=== PATIENT | male | born 1945 | race Caucasian/White ===

== ENCOUNTER → 2017-08-26 16:01 | Outpatient (CLI) | payer MEDICARE, OTHER, SELFPAY ==
--- NOTE | 2017-08-26 | LES_PTH ---
PATIENT: ADA JUNE LOC: [facility] U#:[id number] AGE/SX: 79/M ROOM: RE08/26/[address]: Dr. Hari Sarmiento MD : 1945 BED: DIS: SPEC #: [id number] RECD: 08/26/17 15:59 STATUS: EDWARD RAVI #: [id number] KIMBERLY: 08/26/17 00:[address]: Hari Sarmiento DEPT: SURGICAL PATHOLOGY RECD BY: Reece Santillan ENTERED: 08/27/17 11:45 SP TYPE: Lesion OTHR DR: Dr. Kvng Moody MD Tissues: Skin of arm Procedures: Surgery Specimen Level IV HEADER OPERATION: Excision right arm lesion PRE-OP DIAGNOSIS: Right arm uncertain neoplasm TISSUE SUBMITTED: Right arm tissue MICROSCOPIC DIAGNOSIS Right arm lesion, excisional biopsy: Seborrheic keratosis with keratoacanthomatous features, completely excised. Actinic keratosis and solar elastosis. SJ:lori 08/29/17 COMMENT Case has been reviewed in consultation with Dr. Elder who concurs with the above diagnosis. IDC:AM MICROSCOPIC DESCRIPTION Slides are reviewed. GROSS DESCRIPTION Received in fixative is one container labeled with the patient's name and designated right arm. The specimen consists of a piece of harris-white skin ellipse measuring 3 x 1.5 cm and up to 0.7 cm in depth. There is a raised harris lesion on the surface measuring 1.5 x 0.7 cm. The specimen is inked, serially sectioned and submitted entirely in 3 cassettes. Cassette 1 contained the tips of the skin ellipse. Section will be submitted after overnight fixation. MARIAH:lori 08/27/17 TC:1 CPT:94469
== END ==
PROVIDERS: Family Provider Family Medicine; PCP Family Medicine; Visit Provider Surgery
DX: D48.7 Neoplasm of uncertain behavior of other specified sites (principal)
CPT/HCPCS: 88305

== ENCOUNTER → 2017-11-25 14:46 | Outpatient (CLI) | payer MEDICARE, OTHER, SELFPAY ==
[2017-11-25 18:09] LABS: Anion Gap 5 (5-15); BUN 9 mg/dL (7-18); BUN/Creat Ratio 8.3 RATIO (10-20); Calcium,Total 8.8 mg/dL (8.5-10.1); Chloride 102 mmol/L (98-107); Creatinine, Serum 1.09 mg/dL (0.70-1.30); EST Glomerular Filtration Rate 70 mL/min (>60); Est Glom Filt Rate - Afr Amer 85 mL/min (>60); Glucose 134 mg/dL (74-106); PSA,Total - Annual Screen 0.37 ng/mL (0.00-4.00); Sodium Level 136 mmol/L (136-145)
== END ==
PROVIDERS: Family Provider Family Medicine; PCP Family Medicine; Referring Provider Urology; Visit Provider Urology
DX: Z12.5 Encounter for screening for malignant neoplasm of prostate (principal); N13.30 Unspecified hydronephrosis
CPT/HCPCS: 36415; 80048; 84153; G0103

== ENCOUNTER → 2018-11-30 14:34 | Outpatient (CLI) | payer MEDICARE, OTHER, SELFPAY ==
[2018-11-30 16:20] LABS: Anion Gap 7 (5-15); BUN 19 mg/dL (7-18); BUN/Creat Ratio 17.9 RATIO (10-20); Calcium,Total 8.9 mg/dL (8.5-10.1); Chloride 104 mmol/L (98-107); Creatinine, Serum 1.06 mg/dL (0.70-1.30); EST Glomerular Filtration Rate 72 mL/min (>60); Est Glom Filt Rate - Afr Amer 88 mL/min (>60); Glucose 356 mg/dL (74-106); PSA,Total - Annual Screen 0.42 ng/mL (0.00-4.00); Potassium 4.1 mmol/L (3.5-5.1); Sodium Level 135 mmol/L (136-145)
== END ==
PROVIDERS: Family Provider Family Medicine; PCP Family Medicine; Referring Provider Urology; Visit Provider Urology
DX: Z12.5 Encounter for screening for malignant neoplasm of prostate (principal)
CPT/HCPCS: 36415; 80048; 84153; G0103

== ENCOUNTER → 2019-03-16 15:55 | Outpatient (CLI) | payer MEDICARE, SELFPAY ==
[2019-03-16 17:52] LABS: Absolute Lymphocyte Count 3.27 X10^3/uL (0.83-4.51); Absolute Neutrophil Count 4.7 X10^3/uL (2.0-7.7); Basophil# 0.06 X10^3/uL; Basophil% 0.7 % (0-1); Eosinophil# 0.19 X10^3/uL; Eosinophils% 2.1 % (0-5); Hematocrit 43.8 % (40-54); Hemoglobin 13.5 g/dL (13.0-16.5); Lymphocyte # 3.27 X10^3/ul (4.0); Lymphocyte % 36.8 % (19-41); Mean Corp Hgb Conc 30.8 g/dL (32-36); Mean Corpuscular Hgb 26.1 pg (27.0-32.0); Mean Corpuscular Volume 84.7 fL (80-94); Mean Platelet Vol. 11.1 fl (6.2-12.0); Monocyte# 0.68 X10^3/uL; Monocyte% 7.7 % (0-10); NRBC Flagged by Analyzer 0 % (0-5); Neutrophil # 4.65 X10^3/uL (2.7-7.7); Neutrophil % 52.4 % (47-70); Platelet Count 294 K/mm3 (150-450); RBC Distribution Width CV 14.1 % (11.6-14.6); RBC Distribution Width SD 43.2 fl (35.1-43.9); Red Blood Count 5.17 M/mm3 (4.6-6.2); White Blood Count 8.9 K/mm3 (4.4-11.0)
[2019-03-16 18:52] LABS: Anion Gap 4 (5-15); BUN 13 mg/dL (7-18); BUN/Creat Ratio 12.4 RATIO (10-20); Calcium,Total 8.9 mg/dL (8.5-10.1); Chloride 108 mmol/L (98-107); Creatinine, Serum 1.05 mg/dL (0.70-1.30); EST Glomerular Filtration Rate 73 mL/min (>60); Est Glom Filt Rate - Afr Amer 88 mL/min (>60); Glucose 86 mg/dL (74-106); Magnesium 2.3 mg/dL (1.6-2.6); Potassium 4.3 mmol/L (3.5-5.1); Sodium Level 139 mmol/L (136-145); Thyroid Stim Hormone (TSH) 2.26 uIU/mL (0.358-3.74)
== END ==
PROVIDERS: Family Provider Family Medicine; PCP Family Medicine; Visit Provider Family Medicine
DX: E11.9 Type 2 diabetes mellitus without complications (principal); R00.2 Palpitations
CPT/HCPCS: 36415; 80048; 83735; 84443; 85025

== ENCOUNTER → 2019-04-13 08:54 | Outpatient (CLI) | payer MEDICARE, SELFPAY ==
[2019-04-06 13:43] VITALS: BMI 29.3
--- NOTE | 2019-04-13 08:55 | CDU_ITS ---
Reason For Study: Carotid artery disease Rt. Velocities/BP Lt. Velocities/BP Prox CCA 85.2/10.8 cm/sec. Prox CCA 59.8/14.4 cm/sec. Mid CCA 81.2/9.5 cm/sec. Mid CCA 53.2/15.4 cm/sec. Dist CCA 78.6 cm/sec. Dist CCA 53.2/16.3 cm/sec. Prox ICA 39/9.7 cm/sec. Prox ICA 61.9/16.8 cm/sec. Mid ICA 68.3/15.4 cm/sec. Mid ICA 71.7/17.9 cm/sec. Dist ICA 74/23.9 cm/sec. Dist ICA 82.8/22.3 cm/sec. Rt. ICA/CCA = 0.9. Lt. ICA/CCA = 1.6. Prox ECA 182.8/18.2 cm/sec. Prox ECA 323.9/30.8 cm/sec. Rt. Vert. 47.5/12.6 cm/sec. Lt. Vert. 35.2/9 cm/sec. Right Extracranial There is homogeneous, smooth atherosclerotic plaque noted in the right common carotid artery. There is homogeneous, smooth atherosclerotic plaque noted in the right internal carotid artery. There is homogeneous, smooth atherosclerotic plaque noted in the right external carotid artery. Antegrade flow is noted in the right vertebral artery. Left Extracranial There is homogeneous, smooth atherosclerotic plaque noted in the left common carotid artery. There is heterogeneous, irregular atherosclerotic plaque noted in the left internal carotid artery. There is heterogeneous, irregular atherosclerotic plaque noted in the left external carotid artery. Antegrade flow is noted in the left vertebral artery. Procedure Carotid Duplex [id number]. Exam performed in department. Interpretation Summary Minimal smooth plaque located within the proximal right internal carotid artery <50% stenosis right internal carotid <50% stenosis right external carotid Minimal irregular plague at the proximal left internal carotid <50% stenosis left internal carotid >50% stenosis left external carotid Patent, antegrade vertebrals bilaterally Evidence consistent with previous bilateral carotid endarterectomies Ordering Physician: Margarito Chan Referring Physician: Kvng Moody Performed By: Yamel Sifuentes RVT
== END ==
PROVIDERS: PCP Family Medicine; Referring Provider Internal Medicine Cardiovascular Disease; Visit Provider Internal Medicine Cardiovascular Disease
DX: R09.89 Other specified symptoms and signs involving the circulatory and respiratory systems (principal); I77.9 Disorder of arteries and arterioles, unspecified; I48.91 Unspecified atrial fibrillation; Z98.890 Other specified postprocedural states
CPT/HCPCS: 93880

== ENCOUNTER → 2019-04-26 08:47 | Outpatient (CLI) | payer MEDICARE, SELFPAY ==
[2019-04-06 13:43] VITALS: BMI 29.3
--- NOTE | 2019-04-26 08:47 | ECHOD_ITS ---
Reason For Study: ATRIAL FIB-FLUTTER Procedure This was a 2D Doppler, Color Flow transthoracic echocardiogram. Exam performed in department. Left Ventricle Normal size and thickness. The estimated ejection fraction is 65 %. Unable to assess diastolic dysfunction due to arrhythmia. No regional wall motion abnormalities noted. Right Ventricle Mildly dilated right ventricle. Normal systolic function. Atria The left atrium is moderately enlarged. The right atrium is moderately enlarged. Normal atrial septum. Mitral Valve The mitral valve is structurally normal. No prolapse or stenosis seen. Trivial mitral valve insufficiency. Tricuspid Valve Normal tricuspid valve. Trivial tricuspid valve insufficiency. Right ventricular systolic pressure estimated to be 49 mmHg. Moderate pulmonary hypertension. Aortic Valve Trisinus/trileaflet aortic valve. Mild diffuse aortic valve thickening. Mild aortic stenosis. Peak aortic valve gradient 17 mmHg. Mean aortic valve gradient 11 mmHg. Calculated aortic valve area (continuity equation) is 1.4 cm2. Pulmonic Valve Normal pulmonic valve. Great Vessels Normal aortic root. Normal inferior vena cava. Inferior vena cava collapse with sniff. Pericardium/Pleural No pericardial effusion. MMode/2D Measurements & Calculations LVIDd: 5.0 cm IVSd: 1.0 cm LVOT diam: 2.0 cm LVIDs: 3.3 cm LVPWd: 1.0 cm LVOT area: 3.1 cm2 RVDd: 3.7 cm FS: 34.1 % Ao root diam: 3.2 cm LAV(MOD-bp): 75.2 ml LVAd ap4: 27.3 cm2 LAV(MOD-bp) Indexed: 32.3 ml/m2 EDV(MOD-sp4): 77.8 ml LAV(MOD-sp2): 77.8 ml EDV(sp4-el): 81.3 ml LAV(MOD-sp4): 72.8 ml LVAs ap4: 15.9 cm2 ESV(MOD-sp4): 32.1 ml ESV(sp4-el): 30.9 ml EF(MOD-sp4): 58.8 % EF(sp4-el): 61.9 % SV(MOD-sp4): 45.7 ml SV(sp4-el): 50.4 ml LA A4 area: 23.9 cm2 LA dimension(2D): 4.4 cm RA A4 area: 26.2 cm2 Doppler Measurements & Calculations MV E max kenneth: 122.5 cm/sec Ao V2 max: 206.1 cm/sec LV V1 max: 90.7 cm/sec Ao max P.2 mmHg LV V1 max P.3 mmHg Ao V2 mean: 159.3 cm/sec LV V1 mean P.8 mmHg Ao mean P.3 mmHg LV V1 mean: 61.6 cm/sec Ao V2 VTI: 43.5 cm LV V1 VTI: 21.4 cm LEONIE(I,D): 1.5 cm2 LEONIE(V,D): 1.4 cm2 SV(LVOT): 66.3 ml PA V2 max: 102.5 cm/sec TR max kenneth: 295.1 cm/sec TR max P.8 mmHg Interpretation Summary The estimated ejection fraction is 65 %. Unable to assess diastolic dysfunction due to arrhythmia. Mildly dilated right ventricle. The left atrium is moderately enlarged. The right atrium is moderately enlarged. Trivial mitral valve insufficiency. Trivial tricuspid valve insufficiency. Right ventricular systolic pressure estimated to be 49 mmHg. Moderate pulmonary hypertension. Mild aortic stenosis. Patient appears to be in atrial fibrillation. There is no comparison study available. Ordering Physician: Margarito Chan Referring Physician: MACY BARCENAS Performed By: Candi Galvez RDCS
== END ==
PROVIDERS: PCP Family Medicine; Referring Provider Internal Medicine Cardiovascular Disease; Visit Provider Internal Medicine Cardiovascular Disease
DX: I48.91 Unspecified atrial fibrillation (principal); I10 Essential (primary) hypertension; R94.31 Abnormal electrocardiogram [ECG] [EKG]
CPT/HCPCS: 93306

== ENCOUNTER 2019-04-30 10:00 | Outpatient (RCR) | payer MEDICARE, SELFPAY ==
[2019-04-06 13:43] VITALS: BMI 29.3
[2019-04-13 10:38] LABS: International Normalized Ratio 1.2; Prothrombin Time (Protime)PT. 14.8 SECONDS (11.7-14.9)
[2019-04-13 10:54] LABS: AST(SGOT) 9 U/L (15-37); Alanine Aminotransfer ALT/SGPT 18 U/L (16-61); Albumin, Serum 3.7 g/dL (3.2-5.0); Alkaline Phosphatase 129 U/L (45-117); Bilirubin, Direct 0.17 mg/dL (0.00-0.30); Cholesterol 118 mg/dL (200); Globulin 4.2 g/dL (2.2-4.2); High Density Lipoprotein 36 mg/dL; Protein, Total 7.9 g/dL (6.4-8.2); Triglycerides 78 mg/dL; Very Low Density Lipoprotein 16 mg/dL (5-40)
[2019-04-20 11:05] LABS: International Normalized Ratio 1.2; Prothrombin Time (Protime)PT. 15.1 SECONDS (11.7-14.9)
[2019-04-30 10:42] LABS: International Normalized Ratio 1.2; Prothrombin Time (Protime)PT. 15.3 SECONDS (11.7-14.9)
== END 2019-04-30 18:00 | disposition home or self-care (01) ==
LOC: LAB 10:00
PROVIDERS: PCP Family Medicine; Referring Provider Internal Medicine Cardiovascular Disease; Visit Provider Internal Medicine Cardiovascular Disease
DX: E78.5 Hyperlipidemia, unspecified (principal); E11.9 Type 2 diabetes mellitus without complications; R09.89 Other specified symptoms and signs involving the circulatory and respiratory systems; I77.9 Disorder of arteries and arterioles, unspecified; I48.91 Unspecified atrial fibrillation; Z98.890 Other specified postprocedural states; Z79.01 Long term (current) use of anticoagulants
CPT/HCPCS: 36415; 80061; 80076; 85610; 93880

== ENCOUNTER → 2019-05-03 09:21 | Outpatient (CLI) | payer MEDICARE, SELFPAY ==
[2019-04-06 13:43] VITALS: BMI 29.3
--- NOTE | 2019-05-03 09:23 | STEWCON_ITS ---
Reason For Study: NEW ONSET AFIB/FLUTTER Stress Results Protocol: Oliver Protocol WITH DEFINITY Maximum Predicted HR: 145 bpm Target HR: 123 bpm % Maximum Predicted HR: 102 % DurationHeart Rate Stage (mm:ss) (bpm) BP Comment BASELINE 82 152/92 STAGE 2 3:00 142 140/70SLIGHT SOB STAGE 2 2:24 148 / INCREASED SOB RECOVERY 99 148/784 CC DEFINITY Stress Duration: 5:24 mm:ss Maximum Stress HR: 148 bpm Baseline Echocardiogram Findings The estimated ejection fraction is 65 %. Stress Echo Wall motion Data Resting WM Intermediate WM Stress WM Resting Wall Motion Wall Motion Stress No regional wall motion No regional wall motion abnormalities noted. abnormalities noted. EKG Data Atrial fibrillation with controlled ventricular response. The patient exercised according to the regular Oliver protocol for a total duration of 5:24. The maximum heart rate attained was 173 beats per minute. This was 119% of maximum predicted heart rate. The patient exercised into stage 2 of the Oliver protocol. During stress, there were no ST or T wave changes noted to suggest ischemia. No clinical angina was noted. Doppler Measurements & Calculations TR max kenneth: 284.2 cm/sec TR max P.4 mmHg Interpretation Summary The estimated ejection fraction is 65 %. Normal, adequate, treadmill echocardiogram. Negative for ischemia by EKG and echocardiographic anterior. No anginal symptoms noted. Baseline atrial fibrillation with rare PVCs and rare ventricular couplets during exercise. Below average exercise capacity for age. Final LVEF is 75%. Decrease sensitivity due to atrial fibrillation, and poor echo windows requiring Definity agent. Patient tolerate procedure well. No complications. The study was technically difficult. Contrast injection was performed. Ordering Physician: Margarito Chan Referring Physician: Margarito Chan Performed By: Emerita Verdin, RDCS, RVT
== END ==
PROVIDERS: PCP Family Medicine; Referring Provider Internal Medicine Cardiovascular Disease; Visit Provider Internal Medicine Cardiovascular Disease
DX: I48.91 Unspecified atrial fibrillation (principal); I10 Essential (primary) hypertension; E11.9 Type 2 diabetes mellitus without complications; E78.5 Hyperlipidemia, unspecified; R94.31 Abnormal electrocardiogram [ECG] [EKG]
CPT/HCPCS: 93017; 93350; Q9957; A4216; C8928

== ENCOUNTER 2019-05-20 12:25 | Outpatient (RCR) | payer MEDICARE, SELFPAY ==
[2019-04-06 13:43] VITALS: BMI 29.3
[2019-05-06 11:47] LABS: International Normalized Ratio 1.4; Prothrombin Time (Protime)PT. 16.9 SECONDS (11.7-14.9)
[2019-05-20 13:28] LABS: International Normalized Ratio 1.6; Prothrombin Time (Protime)PT. 19.1 SECONDS (11.7-14.9)
== END 2019-05-20 18:00 | disposition home or self-care (01) ==
LOC: LAB 12:25
PROVIDERS: PCP Family Medicine; Referring Provider Internal Medicine Cardiovascular Disease; Visit Provider Internal Medicine Cardiovascular Disease
DX: I48.91 Unspecified atrial fibrillation (principal); Z79.01 Long term (current) use of anticoagulants
CPT/HCPCS: 36415; 85610

== ENCOUNTER 2019-06-17 12:08 | Outpatient (RCR) | payer MEDICARE, SELFPAY ==
[2019-04-06 13:43] VITALS: BMI 29.3
[2019-06-03 11:51] LABS: International Normalized Ratio 2.3; Prothrombin Time (Protime)PT. 24.9 SECONDS (11.7-14.9)
[2019-06-17 12:35] LABS: International Normalized Ratio 1.9; Prothrombin Time (Protime)PT. 21.1 SECONDS (11.7-14.9)
== END 2019-07-01 18:00 | disposition home or self-care (01) ==
LOC: LAB 12:08
PROVIDERS: PCP Family Medicine; Referring Provider Internal Medicine Cardiovascular Disease; Visit Provider Internal Medicine Cardiovascular Disease
DX: I48.91 Unspecified atrial fibrillation (principal); Z79.01 Long term (current) use of anticoagulants
CPT/HCPCS: 36415; 85610

== ENCOUNTER 2019-07-08 10:24 | Outpatient (RCR) | payer MEDICARE, SELFPAY ==
[2019-04-06 13:43] VITALS: BMI 29.3
[2019-07-08 11:36] LABS: International Normalized Ratio 2.2; Prothrombin Time (Protime)PT. 23.7 SECONDS (11.7-14.9)
== END 2019-07-08 18:00 | disposition home or self-care (01) ==
LOC: LAB 10:24
PROVIDERS: PCP Family Medicine; Referring Provider Internal Medicine Cardiovascular Disease; Visit Provider Internal Medicine Cardiovascular Disease
DX: I48.91 Unspecified atrial fibrillation (principal); Z79.01 Long term (current) use of anticoagulants
CPT/HCPCS: 36415; 85610

== ENCOUNTER 2019-08-05 09:50 | Outpatient (RCR) | payer MEDICARE, SELFPAY ==
[2019-04-06 13:43] VITALS: BMI 29.3
[2019-08-05 10:40] LABS: International Normalized Ratio 1.5; Prothrombin Time (Protime)PT. 17.8 SECONDS (11.7-14.9)
== END 2019-08-05 18:00 | disposition home or self-care (01) ==
LOC: LAB 09:50
PROVIDERS: PCP Family Medicine; Referring Provider Internal Medicine Cardiovascular Disease; Visit Provider Internal Medicine Cardiovascular Disease
DX: I48.91 Unspecified atrial fibrillation (principal); Z79.01 Long term (current) use of anticoagulants
CPT/HCPCS: 36415; 85610

== ENCOUNTER → 2019-12-16 09:45 | Outpatient (CLI) | payer MEDICARE, SELFPAY ==
[2019-11-17 10:45] VITALS: BMI 29.8
--- NOTE | 2019-12-16 09:49 | NM_ITS ---
CLINICAL: 74-year-old male with reported history of hydronephrosis. 99m Tc MAG3 DIURETIC RENAL SCINTIGRAPHY COMPARISON: Previous diuretic renal scintigraphy study dated 09/07/2014 FINDINGS: Following the intravenous administration of 10.0 mCi of 99m Tc MAG3, renal images reveal: 1. The flow study demonstrates relatively symmetric-normal arterial phase distribution of the radiopharmaceutical to the right and left renal units. 2. Immediate static delayed nephrogram images depict prompt, homogeneous tracer uptake by the renal parenchyma of both kidneys. Collecting structure visualization is defined at approximately 4 minutes following tracer injection. Washout of the radiopharmaceutical by the renal parenchyma appears qualitatively normal in both kidneys. Persistent collecting system activity is defined in the right and left kidneys during 20 minutes of pre-Lasix sequential image acquisition. 3. The [id number] ratio of total renal parenchymal function was calculated to be 51/49 compared to 58/42 defined on the previous examination. Furosemide 10 mg was administered intravenously. The post Lasix T ? washout of the bilateral kidney collecting system activity was calculated to be < 10 minutes (Normal < 10 minutes). NM/Renal Scan w/ Pharm Intervent IMPRESSION: 1. There is preservation of bilateral renal parenchymal-cortical function. 2. The right and left kidney collecting systems demonstrate a normal physiologic response to induced diuresis which negates the presence of significant mechanical and/or functional obstruction. 3. Overall compared to the previous diuretic renal scintigraphy study dated 09/07/2014, there is no significant interval change. Electronically Signed: Darnell Carrillo DO at 9:32 EDT Tel , Service support ,
[2019-12-16] MEDS: Furosemide 20 MG/2 ML VIAL 10 MG IV (10:26)
== END ==
PROVIDERS: PCP Family Medicine; Referring Provider Urology; Visit Provider Urology
DX: N40.0 Benign prostatic hyperplasia without lower urinary tract symptoms (principal)
CPT/HCPCS: 78708; A9562

== ENCOUNTER → 2020-01-21 11:43 | Outpatient (CLI) | payer MEDICARE, SELFPAY ==
[2019-11-17 10:45] VITALS: BMI 29.8
[2020-01-21 15:55] LABS: Absolute Lymphocyte Count 2.55 X10^3/uL (0.83-4.51); Absolute Neutrophil Count 4.6 X10^3/uL (2.0-7.7); Basophil# 0.05 X10^3/uL; Basophil% 0.6 % (0-1); Eosinophils% 1.3 % (0-5); Hematocrit 45.6 % (40-54); Hemoglobin 13.6 g/dL (13.0-16.5); Lymphocyte # 2.55 X10^3/ul (4.0); Lymphocyte % 32.3 % (19-41); Mean Corp Hgb Conc 29.8 g/dL (32-36); Mean Corpuscular Hgb 24.7 pg (27.0-32.0); Mean Corpuscular Volume 82.8 fL (80-94); Mean Platelet Vol. 10.6 fl (6.2-12.0); Monocyte# 0.58 X10^3/uL; Monocyte% 7.4 % (0-10); NRBC Flagged by Analyzer 0 % (0-5); Neutrophil # 4.59 X10^3/uL (2.7-7.7); Neutrophil % 58.1 % (47-70); Platelet Count 319 K/mm3 (150-450); RBC Distribution Width CV 16.1 % (11.6-14.6); RBC Distribution Width SD 49.1 fl (35.1-43.9); Red Blood Count 5.51 M/mm3 (4.6-6.2); White Blood Count 7.9 K/mm3 (4.4-11.0)
[2020-01-21 16:12] LABS: Vitamin D,25 Hydroxy 48.4 ng/mL
[2020-01-21 16:45] LABS: ALB/GLOB Ratio 0.9 RATIO (0.9-2.4); AST(SGOT) 9 U/L (15-37); Alanine Aminotransfer ALT/SGPT 18 U/L (16-61); Alkaline Phosphatase 170 U/L (45-117); Anion Gap 7 (5-15); BUN 11 mg/dL (7-18); BUN/Creat Ratio 11.7 RATIO (10-20); Calcium,Total 8.9 mg/dL (8.5-10.1); Chloride 105 mmol/L (98-107); Creatinine, Serum 0.94 mg/dL (0.70-1.30); EST Glomerular Filtration Rate 83 mL/min (>60); Est Glom Filt Rate - Afr Amer 100 mL/min (>60); Globulin 4.4 g/dL (2.2-4.2); Glucose 90 mg/dL (74-106); Potassium 3.8 mmol/L (3.5-5.1); Protein, Total 8.4 g/dL (6.4-8.2); Sodium Level 137 mmol/L (136-145); Thyroid Stim Hormone (TSH) 2.32 uIU/mL (0.358-3.74)
== END ==
PROVIDERS: PCP Family Medicine; Visit Provider Family Medicine
DX: I10 Essential (primary) hypertension (principal); E11.9 Type 2 diabetes mellitus without complications; E55.9 Vitamin D deficiency, unspecified; I48.91 Unspecified atrial fibrillation
CPT/HCPCS: 36415; 80053; 82306; 84443; 85025

== ENCOUNTER → 2020-12-05 09:33 | Outpatient (CLI) | payer MEDICARE, SELFPAY ==
[2020-12-05 10:06] LABS: Hematocrit 41.7 % (40-54); Hemoglobin 12.9 g/dL (13.0-16.5); Mean Corp Hgb Conc 30.9 g/dL (32-36); Mean Corpuscular Hgb 25.9 pg (27.0-32.0); Mean Corpuscular Volume 83.7 fL (80-94); Mean Platelet Vol. 10.3 fl (6.2-12.0); Platelet Count 279 K/mm3 (150-450); RBC Distribution Width CV 15.1 % (11.6-14.6); RBC Distribution Width SD 45.9 fl (35.1-43.9); Red Blood Count 4.98 M/mm3 (4.6-6.2); White Blood Count 7.5 K/mm3 (4.4-11.0)
[2020-12-05 10:52] LABS: Anion Gap 7 (5-15); BUN 14 mg/dL (7-18); BUN/Creat Ratio 13.5 RATIO (10-20); Calcium,Total 8.7 mg/dL (8.5-10.1); Chloride 105 mmol/L (98-107); Creatinine, Serum 1.04 mg/dL (0.70-1.30); EST Glomerular Filtration Rate 74 mL/min (>60); Est Glom Filt Rate - Afr Amer 89 mL/min (>60); Glucose 132 mg/dL (74-106); PSA,Total - Annual Screen 0.56 ng/mL (0.00-4.00); Potassium 3.8 mmol/L (3.5-5.1); Sodium Level 139 mmol/L (136-145)
== END ==
PROVIDERS: PCP Family Medicine; Referring Provider Urology; Visit Provider Urology
DX: E78.5 Hyperlipidemia, unspecified (principal); Z12.5 Encounter for screening for malignant neoplasm of prostate
CPT/HCPCS: 36415; 80048; 84153; 85027; G0103

== ENCOUNTER 2021-04-23 12:11 | Outpatient (CLI) | payer MEDICARE, SELFPAY ==
--- NOTE | 2021-04-23 12:14 | RAD_ITS ---
STUDY: X-RAY CHEST REASON FOR EXAM: Male, 75 years old. COUGH, DYSPNEA TECHNIQUE: PA and lateral views of the chest. COMPARISON: None. FINDINGS: Central pulmonary vascular congestion with central and basilar dominant interstitial opacities. Small bilateral pleural effusions. There is mild cardiac enlargement. Normal mediastinum and evita. There is prominence of the pulmonary hilar arteries and peripheral pulmonary arteries, consistent with congestive heart failure (CHF). There is atherosclerotic tortuosity of the aortic arch and descending thoracic aorta. There are diffuse degenerative changes of the visualized thoracic spine. Normal visualized ribs, clavicles, and shoulders. There is no demonstrated abnormality of the visualized soft tissue structures of the upper abdomen. RAD/Chest PA and Lateral IMPRESSION: CHF with lower lobe edema and small pleural effusions. Electronically Signed: Sunny Negron MD ([facility]) at 9:33 EST ,
== END 2021-04-23 23:59 | disposition home or self-care (01) ==
LOC: MTRAD 12:13
PROVIDERS: PCP Family Medicine; Referring Provider Family Medicine; Visit Provider Family Medicine
DX: R05.9 Cough, unspecified (principal); R06.00 Dyspnea, unspecified
CPT/HCPCS: 71046

== ENCOUNTER → 2021-05-10 07:47 | Outpatient (CLI) | payer MEDICARE, SELFPAY ==
--- NOTE | 2021-05-10 07:49 | ECHOD_ITS ---
Reason For Study: NEW ONSET CHF Procedure This was a 2D Doppler, Color Flow transthoracic echocardiogram. Exam performed in department. Left Ventricle Normal LV size. The estimated ejection fraction is 25 %. There is moderate to severe global hypokinesis of the left ventricle. Right Ventricle Normal RV size. Normal systolic function. Atria The left atrium is moderately enlarged. The right atrium is moderately enlarged. Mitral Valve Normal mitral valve. Mild-Moderate (1-2+) eccentric mitral valve insufficiency. Tricuspid Valve Normal tricuspid valve. Moderate (2+) tricuspid valve insufficiency. Pulmonary artery systolic pressure is 60 mmHg. Aortic Valve Trisinus/trileaflet aortic valve. Moderate focal aortic valve calcification. Pulmonic Valve Normal pulmonic valve. Great Vessels Normal aortic root. The pulmonary artery is normal size. Normal inferior vena cava. Pericardium/Pleural Small pericardial effusion. Moderate size left pleural effusion. MMode/2D Measurements & Calculations LVIDd: 5.9 cm IVSd: 0.89 cm LVOT diam: 2.0 cm LVIDs: 4.8 cm LVPWd: 0.90 cm LVOT area: 3.1 cm2 RVDd: 3.8 cm FS: 18.1 % Ao root diam: 3.2 cm LAV(MOD-bp): 104.3 ml LVAd ap4: 42.9 cm2 LAV(MOD-bp) Indexed: 44.7 ml/m2 LVLd ap4: 9.4 cm LAV(MOD-sp2): 100.1 ml EDV(MOD-sp4): 166.4 ml LAV(MOD-sp4): 100.7 ml EDV(sp4-el): 167.0 ml LVAs ap4: 35.0 cm2 LVLs ap4: 9.2 cm ESV(MOD-sp4): 113.7 ml ESV(sp4-el): 113.2 ml EF(MOD-sp4): 31.7 % EF(sp4-el): 32.2 % SV(MOD-sp4): 52.8 ml SV(sp4-el): 53.7 ml LA A4 area: 28.0 cm2 LA dimension(2D): 3.7 cm RA A4 area: 32.8 cm2 Doppler Measurements & Calculations MV E max kenneth: 130.9 cm/sec Ao V2 max: 227.1 cm/sec LV V1 max: 73.8 cm/sec Ao max P.9 mmHg LV V1 max P.2 mmHg Ao V2 mean: 168.3 cm/sec LV V1 mean P.1 mmHg Ao mean P.7 mmHg LV V1 mean: 48.8 cm/sec Ao V2 VTI: 40.4 cm LV V1 VTI: 13.2 cm LEONIE(I,D): 1.0 cm2 LEONIE(V,D): 1.0 cm2 SV(LVOT): 40.8 ml PA V2 max: 86.9 cm/sec TR max kenneth: 370.3 cm/sec TR max P.9 mmHg ECHO/Echo Complete Interpretation Summary Normal LV size. The estimated ejection fraction is 25 %. There is moderate to severe global hypokinesis of the left ventricle. Mild-Moderate (1-2+) eccentric mitral valve insufficiency. Moderate (2+) tricuspid valve insufficiency. The left atrium is moderately enlarged. The right atrium is moderately enlarged. Moderate focal aortic valve calcification. Pulmonary artery systolic pressure is 60 mmHg. Compared to previous study, the left ventricular systolic function has worsened .. Ordering Physician: Kvng Moody Referring Physician: Kvng Moody Performed By: Candi Galvez RDCS
== END ==
PROVIDERS: PCP Family Medicine; Referring Provider Family Medicine; Visit Provider Family Medicine
DX: R06.00 Dyspnea, unspecified (principal); I50.9 Heart failure, unspecified; I48.91 Unspecified atrial fibrillation
CPT/HCPCS: 93306

== ENCOUNTER 2021-05-21 10:12 | Outpatient (CLI) | payer MEDICARE, SELFPAY ==
--- NOTE | 2021-05-21 10:20 | RAD_ITS ---
STUDY: X-RAY CHEST REASON FOR EXAM: Male, 75 years old. Cardiac Catheterization TECHNIQUE: PA and lateral views of the chest. COMPARISON: 04/23/2021 FINDINGS: Stable COPD. Stable blunting of both costophrenic angles from effusion. Lungs are otherwise clear. There is mild cardiac enlargement. Normal mediastinum and evita. Normal visualized pulmonary arteries. Normal visualized aortic arch and descending thoracic aorta. Normal visualized thoracic spine. Normal visualized ribs, clavicles, and shoulders. There is no demonstrated abnormality of the visualized soft tissue structures of the upper abdomen. RAD/Chest PA and Lateral IMPRESSION: Stable COPD with bilateral effusions Electronically Signed: Venancio Iyer DO at 16:42 EDT ,
[2021-05-21 10:54] LABS: Absolute Lymphocyte Count 1.99 X10^3/uL (0.83-4.51); Absolute Neutrophil Count 5.1 X10^3/uL (2.0-7.7); Basophil# 0.06 X10^3/uL; Basophil% 0.8 % (0-1); Eosinophil# 0.06 X10^3/uL; Eosinophils% 0.8 % (0-5); Hematocrit 40.4 % (40-54); Hemoglobin 12.3 g/dL (13.0-16.5); Lymphocyte # 1.99 X10^3/ul (0.83-4.51); Lymphocyte % 25.2 % (19-41); Mean Corp Hgb Conc 30.4 g/dL (32-36); Mean Corpuscular Hgb 23.5 pg (27.0-32.0); Mean Corpuscular Volume 77.2 fL (80-94); Mean Platelet Vol. 9.5 fl (6.2-12.0); Monocyte# 0.69 X10^3/uL; Monocyte% 8.7 % (0-10); NRBC Flagged by Analyzer 0 % (0-5); Neutrophil # 5.07 X10^3/uL (2.7-7.7); Platelet Count 334 K/mm3 (150-450); Red Blood Count 5.23 M/mm3 (4.6-6.2); White Blood Count 7.9 K/mm3 (4.4-11.0)
[2021-05-21 11:03] LABS: International Normalized Ratio 1.8
[2021-05-21 11:04] LABS: Partial Thromboplast Time 39.7 Seconds (24.1-36.2)
[2021-05-21 11:16] LABS: Anion Gap 6 (5-15); BUN 16 mg/dL (7-18); BUN/Creat Ratio 13.6 RATIO (10-20); Calcium,Total 8.7 mg/dL (8.5-10.1); Chloride 99 mmol/L (98-107); Creatinine, Serum 1.18 mg/dL (0.70-1.30); EST Glomerular Filtration Rate 64 mL/min (>60); Est Glom Filt Rate - Afr Amer 77 mL/min (>60); Glucose 102 mg/dL (74-106); Potassium 4.1 mmol/L (3.5-5.1); Sodium Level 134 mmol/L (136-145)
[2021-05-21 11:17] LABS: BNP,B-Type NATRIURETIC PEPTIDE 717.7 pg/mL (0-100)
== END 2021-05-21 23:59 | disposition home or self-care (01) ==
LOC: RAD 10:15
PROVIDERS: PCP Family Medicine; Referring Provider Nurse Practitioner Gerontology; Visit Provider Nurse Practitioner Gerontology
DX: R06.00 Dyspnea, unspecified (principal); I42.9 Cardiomyopathy, unspecified; I48.20 Chronic atrial fibrillation, unspecified
CPT/HCPCS: 36415; 71046; 80048; 83880; 85025; 85610; 85730

== ENCOUNTER → 2021-06-05 | Day surgery (SDC) | payer MEDICARE, SELFPAY ==
[2021-05-31 11:24] LABS: Anion Gap 6 (5-15); BUN 21 mg/dL (7-18); BUN/Creat Ratio 17.8 RATIO (10-20); Chloride 101 mmol/L (98-107); Creatinine, Serum 1.18 mg/dL (0.70-1.30); EST Glomerular Filtration Rate 64 mL/min (>60); Est Glom Filt Rate - Afr Amer 77 mL/min (>60); Glucose 103 mg/dL (74-106); Potassium 4.1 mmol/L (3.5-5.1); Sodium Level 135 mmol/L (136-145)
--- NOTE | 2021-06-02 10:26 | PCM.HP.BLA ---
History and Physical Date of Admission: 06/05/21 [facility] [address] [place] [address] [phone] OFFICE VISITDate of Service: 05/21/21 MR#:[id number]:[id number]: EDILBERTO JUNERep #:[id number] Provider: LIOR Burnham/Sex: 75/M [facility] HPI History of Present Illness Surgical H&P: Yes Details: Mr. June is a very pleasant 75-year-old gentleman, with a history of hypertension, hyperlipidemia, referred by Dr. Moody's office for newly discovered congestive heart failure. He has a history of atrial fibrillation. 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 In addition he has newly discovered diabetes and placed on oral anti-diabetic medications. Thyroid studies were obtained on 03/16/2019 which were found to be normal. From a cardiac standpoint, the patient is doing well. He denies any palpitations, chest pain, pressure or heaviness. He does have SOB with minimal exertion-this is new. He denies Orthopnea, and PND. He does not have bleeding issues; no blood in urine, stool or nosebleeds. He does notice a decrease in his energy level-he states this is new as well. He denies myalgias, or claudication. He does have bilateral lower extremity edema-he states this is improving since being on Lasix 40mg daily. He denies sudden weight gain. He denies dizziness, lightheadedness, syncopal or near syncopal episodes, and headaches. Intake Vital Signs 05/21/21 08:50 Height 6 ft 3 in Weight: 210 lb BMI 26.2 BP 136/78 H Blood Pressure Location Lt brachial Position Sitting Respiration 18 Pulse 77 Pulse Source Monitor Pulse Oximetry (%) 94 Intake Visit Reasons: a-fib Manager Public Required: No Accompanied by: none Is patient in pain?: No Allergies No Known Allergies Allergy (Verified 05/21/21 09:22) Medications alendronate 70 mg tablet 70 mg PO QWEEK 04/05/19 [History Confirmed 05/21/21] amlodipine 5 mg tablet 5 mg PO DAILY 04/05/19 [History Confirmed 05/21/21] atorvastatin 20 mg tablet 20 mg PO DAILY 04/05/19 [History Confirmed 05/21/21] cholecalciferol (vitamin D3) 125 mcg (5,000 unit) disintegrating tablet unit PO DAILY tab 04/05/19 [History Confirmed 05/21/21] glimepiride 1 mg tablet 1 mg PO DAILY 04/05/19 [History Confirmed 05/21/21] omeprazole 20 mg tablet,delayed release 20 mg PO DAILY 04/05/19 [History Confirmed 05/21/21] warfarin 5 mg tablet 5 mg PO DAILY #120 tab 12/13/20 [Rx Confirmed 05/21/21] aspirin 81 mg tablet,delayed release 81 mg PO DAILY #7 tab 05/21/21 [Rx Confirmed 05/21/21] carvedilol 3.125 mg tablet 3.125 mg PO BID #60 tab 05/21/21 [Rx Confirmed 05/21/21] furosemide 40 mg tablet 40 mg PO DAILY 05/21/21 [History Confirmed 05/21/21] lutein 20 mg capsule 20 mg PO DAILY 05/21/21 [History Confirmed 05/21/21] potassium chloride 20 mEq tablet,extended release(part/cryst) 20 meq PO DAILY 05/21/21 [History Confirmed 05/21/21] [facility] Medical History (Updated 05/22/21 @ 13:07 by Sophia Peguero NP, WALLPAPER SCRAPER-C) Caregiver stress Depression Diabetes mellitus, type II Essential hypertension GERD (gastroesophageal reflux disease) Hydronephrosis 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 Social History Smoking Status: Former smoker how long ago did patient quit smokin years ago alcohol intake: current alcohol intake frequency: holidays/special occasions only substance use type: does not use caffeine: Yes Type: coffee Number of servings: 4 ROS Const Const: Positive for fatigue; Negative for weakness, fever(s), headache(s), chills, frequent falls, weight gain or weight loss Eyes Eyes: Negative for blind spots, loss of peripheral vision, transient loss of vision, blurry vision, change in vision, double vision, floaters or tunnel vision ENT ENT: Negative for headache(s), dizziness, Nosebleed/epistaxis, balance problems or neck pain Cardio Chest Pain: No Palpitations: No Edema: Bilateral (lower extremities-improving since being on Lasix) and None Muscle aches with walking: None Resp Respiratory: Positive for SOB with activity (minimal exertion-new); Negative for SOB at rest or SOB orthopnea\SOB lying down GI GI: Negative nausea, vomiting, heartburn, bloating, vomiting blood/hematemesis, bright, red blood in stools or black,tarry stools Musc Musc: Negative for muscle aches/ myalgia, muscle weakness, joint pain or balance problems Neuro Neuro: Negative for dizziness, lightheadedness, near syncope, syncope, orthostatic symptoms, frequent falls, headache(s), weakness, blurry vision or double vision Humza Hematologic/Lymphatic: Negative for easy bleeding or easy bruising Endo Endo: Positive for fatigue Cardiology Exam Const Appearance: cooperative and no acute distress Orientation: alert and oriented x3 Head Head: normal to inspection Ears: hearing grossly normal bilaterally Nose: external nose normal Face and Sinus: face symmetric Eyes General: appearance normal, both eyes and all related structures Eyelids: eyelids normal Conjunctivae: conjunctivae normal Pupils: PERRL and pupil size EOM: EOM intact bilaterally Neck Neck: normal visual inspection Carotids: Negative bruit Chest Chest inspection: normal inspection of the chest and normal respiratory effort Auscultation: Bilateral: Clear to Auscultation Cardio Palpation: normal PMI Rate: regular rate Rhythm: irregularly irregular Heart sounds: S1 normal, S2 normal and murmur; Negative rub or gallop Murmur: Grade 2/6, soft, mid systolic, LLSB, LVOT and sternal notch GI GI: normal to inspection and soft; Negative no hepatosplenomegaly Neuro General: patient alert, patient oriented x3 and CN's II-XI intact bilaterally Skin Skin: no rashes or lesions noted Extremities Pulses: Normal: Right Posterior Tibial Pulse, Left Posterior Tibial Pulse, Right Radial Pulse and Left Radial Pulse Lower Extremity Edema: +1: Bilateral Psych Psychological: normal affect Supplemental Info Supplemental Information Echocardiogram 05/10/2021: Interpretation Summary Normal LV size. The estimated ejection fraction is 25 %. There is moderate to severe global hypokinesis of the left ventricle. Mild-Moderate (1-2+) eccentric mitral valve insufficiency. Moderate (2+) tricuspid valve insufficiency. The left atrium is moderately enlarged. The right atrium is moderately enlarged. Moderate focal aortic valve calcification. Pulmonary artery systolic pressure is 60 mmHg. Compared to previous study, the left ventricular systolic function has worsened. Echocardiogram 04/26/2019: The estimated ejection fraction is 65 %. Unable to assess diastolic dysfunction due to arrhythmia. Mildly dilated right ventricle. The left atrium is moderately enlarged. The right atrium is moderately enlarged. Trivial mitral valve insufficiency. Trivial tricuspid valve insufficiency. Right ventricular systolic pressure estimated to be 49 mmHg. Moderate pulmonary hypertension. Mild aortic stenosis. Patient appears to be in atrial fibrillation. There is no comparison study available. Stress Echocardiogram 05/03/2019: Baseline Echocardiogram Findings The estimated ejection fraction is 65 %. Stress Echo Wall motion Data Resting WM Intermediate WM Stress WM Resting Wall Motion Wall Motion Stress No regional wall motion No regional wall motion abnormalities noted. abnormalities noted. EKG Data Atrial fibrillation with controlled ventricular response. The patient exercised according to the regular Oliver protocol for a total duration of 5:24. The maximum heart rate attained was 173 beats per minute. This was 119% of maximum predicted heart rate. The patient exercised into stage 2 of the Oliver protocol. During stress, there were no ST or T wave changes noted to suggest ischemia. No clinical angina was noted. Doppler Measurements & Calculations TR max kenneth: 284.2 cm/sec TR max P.4 mmHg Interpretation Summary The estimated ejection fraction is 65 %. Normal, adequate, treadmill echocardiogram. Negative for ischemia by EKG and echocardiographic anterior. No anginal symptoms noted. Baseline atrial fibrillation with rare PVCs and rare ventricular couplets during exercise. Below average exercise capacity for age. Final LVEF is 75%. Decrease sensitivity due to atrial fibrillation, and poor echo windows requiring Definity agent. Patient tolerate procedure well. No complications. The study was technically difficult. Contrast injection was performed. Labs: No Data to Display Diagnostics: Electrocardiogram Echocardiogram Chest X-Ray Pulmonary: No Data to Display Assessment and Plan Assessment and Plan (1) Cardiomyopathy: Status: Acute Orders: Orders: Chest PA and Lateral 05/21/21 Ave Peguero NP, WALLPAPER SCRAPER-C: Patient has new onset cardiomyopathy. His most recent echocardiogram from 05/10/2021 demonstrated an estimated ejection fraction of 25 %, moderate to severe global hypokinesis of the left ventricle, and pulmonary artery systolic pressure of 60 mmHg. He does have complaints of increased fatigue, dyspnea with minimal exertion, and bilateral lower extremity edema. After discussing with Dr. Stone, patient will undergo a left and right cardiac catheterization to evaluate this. He will be asked to start carvedilol 3.125mg twice daily, with titrations if tolerated. We may also think about starting patient on Entresto 24/26mg twice daily. He will continue furosemide 40mg daily. Cardiac catheterization instructions given to patient. He will be asked to hold his Coumadin 5 days prior to his procedure. We will follow patient closely. (2) Atrial fibrillation: Status: Chronic Qualifiers: Atrial fibrillation type: unspecified chronic Qualified Code(s): I48.20 - Chronic atrial fibrillation, unspecified Orders: Orders: 12 [place] [facility] [place] Basic Metabolic Profile (BMP) 05/21/21 Prothrombin Time w/INR 05/21/21 Partial Thromboplast Time 05/21/21 Ave Peguero NP, WALLPAPER SCRAPER-C: Patient has a history of atrial fibrillation. His EKG from today demonstrates atrial fibrillation with occasional ectopic ventricular beat, old anterior infarct, heart ate 109. Patient will be asked to start carvedilol 3.125mg twice daily. He will continue warfarin. (3) Essential hypertension: Status: Chronic Ave - Sophia Peguero NP, WALLPAPER SCRAPER-C: Patient has a history of hypertension. His blood pressure is well controlled at this time. He will continue with his current medical therapy, along with monitoring his blood pressures at home. (4) Hyperlipidemia: Status: Chronic Qualifiers: Hyperlipidemia type: unspecified Qualified Code(s): E78.5 - Hyperlipidemia, unspecified Ave Peguero NP, WALLPAPER SCRAPER-C: Patient has a history of hyperlipidemia. His PCP monitors this. He will continue atorvastatin 20 mg daily, along with aggressive risk factor and lifestyle modifications. (5) BRADSHAW (dyspnea on exertion): Status: Acute Orders: Orders: BNP,B-Type NATRIURETIC PEPTIDE 05/21/21 CBC W/Diff, Automated 05/21/21 Plan - Sophia Peguero NP, WALLPAPER SCRAPER-C: Patient has complaints of dyspnea with minimal exertion. We will obtain a BMP, BTNP, and CBC to evaluate for anemia, and fluid overload. Plan Details Other Medications: New: carvedilol (Coreg) must administer with a meal/food 3.125 mg PO BID 60 tabs 3RF aspirin (Adult Low Dose Aspirin) Will start 7 days prior to his cardiac catheterization. 05/30/2021 81 mg PO DAILY 7 tabs 0RF Additional Comments: Patient will follow up in 6-8 weeks, or sooner if needed. Thank you for allowing me to participate in the care of your patient. Please don't hesitate to call if any issues arise. This note was generated using a voice recognition system and there may be incorrect words, spelling, or punctuation that were not noted when reviewing the office note prior to saving. Follow Up: 6-8 weeks COVID (Procedure Consent) Procedure Criteria Procedure Criteria: Yes Elective The surgeon/proceduralist and patient have discussed in detail the risk of exposure to and/or potential harm posed by the COVID-19 virus with having a surgery/procedure at this time versus the risk of delaying the surgery/procedure. It is not possible to know either the risk of delaying the surgery or procedure or chance of getting an infection with perfect accuracy, but a joint decision was made between the patient and the surgeon/proceduralist to proceed at this time with the scheduled surgery/procedure as indicated on the consent form. Coding Level of Care Code Off vis,est,level 4 Diagnoses Cardiomyopathy I42.9 Atrial fibrillation I48.20 Atrial fibrillation type: unspecified chronic Essential hypertension I10 Hyperlipidemia E78.5 Hyperlipidemia type: unspecified BRADSHAW (dyspnea on exertion) R06.00 Coding Level of Care Code Off vis,est,level 4 Diagnoses Cardiomyopathy I42.9 Atrial fibrillation I48.20 Atrial fibrillation type: unspecified chronic Essential hypertension I10 Hyperlipidemia E78.5 Hyperlipidemia type: unspecified BRADSHAW (dyspnea on exertion) R06.00 05/22/21 1316<Electronically signed by Sophia Peguero NP WALLPAPER SCRAPER-C>Date Sophia Peguero NP WALLPAPER SCRAPER-C 05/22/21 1806<Electronically signed by Edilberto Stone MD>Yuniorigner Signature:Date (if applicable)Edilberto Stone MD CC: Dr. Kvng Moody MD ~ Assessment & Plan Addt'l Comments I have re-examined the patient. There are no clinical changes since date of exam
[2021-06-04 08:54] VITALS: BMI 26.2
[2021-06-05 07:26] LABS: INR Fingerstick 1.4; Prothrombin Time Fingerstick 17.5 SEC (11.7-14.9)
[2021-06-05 09:15] LABS: Base Excess 1 mmol/L (-2 to +2); Bicarbonate 25.4 mmol/L (22-26); Blood Gas Specimen Type ART; PO2 56 mmHG (75-100); SO2 90 % (95-99); Total Carbon Dioxide 27 mmol/L; pCO2 38.4 mmHg (35-45); pH 7.43 (7.35-7.45)
[2021-06-05 09:20] LABS: Blood Gas Specimen Type VEN; VBG BASE EXCESS 1 mmol/L (-1.0-3.5); VBG Bicarbonate 26 mmol/L (22-26); VBG PO2 32 mmHg (25-40); VBG SO2 60 % (50-70); VBG TCO2 27 mmol/L (23-33); VBG pCO2 43.4 mmHg (41-51); VBG pH 7.39 (7.32-7.42)
[2021-06-05 09:20] LABS: Blood Gas Specimen Type VEN; VBG BASE EXCESS 1 mmol/L (-1.0-3.5); VBG Bicarbonate 26 mmol/L (22-26); VBG PO2 37 mmHg (25-40); VBG SO2 70 % (50-70); VBG TCO2 27 mmol/L (23-33); VBG pCO2 41.5 mmHg (41-51)
[2021-06-05 09:26] LABS: Blood Gas Specimen Type VEN; VBG BASE EXCESS 1 mmol/L (-1.0-3.5); VBG Bicarbonate 26 mmol/L (22-26); VBG PO2 33 mmHg (25-40); VBG SO2 64 % (50-70); VBG TCO2 27 mmol/L (23-33); VBG pCO2 41.8 mmHg (41-51)
--- NOTE | 2021-06-05 09:46 | CASEMGMT ---
According to the [employer] website, the following are in-network tertiary facilities: [facility], [place], [facility], [facility], [facility], and . Eugene HURT CM
--- NOTE | 2021-06-05 11:28 | CL.D_ITS ---
Patient Name: EDILBERTO JUNE Study Date: 06/05/2021 Performing: Edilberto Stone MD Ht: 75.19 inches 191 cm : 1945 Wt: 209.44 lbs 95 kg Age: 75 Gender: male BSA: 2.24 PROCEDURE(S) PERFORMED DC05-([id number])RHC/LHC/COR/LV CLINICAL PROFILE AND INDICATIONS Indications: Suspected CAD, Valvular Disease, LV Dysfunction Heart Failure: None Stress/Imaging Stress/Image Study Performed: No Angina Classification Anginal Classification w/in 2 Weeks: Anginal Equivalent Dyspnea CAD Presentations: Other: dyspnea on exertion CONCLUSIONS Right heart pressures - moderately elevated The patient has pulmonary hypertension which is moderate. Intracardiac shunting: None Elevated Left Ventricular End Diastolic Pressure Segmented LV systolic dysfunction- Severe LVEF: by LV gram 25 % Lime Multivessel CAD Aortic Valve Stenosis- Mild Mitral Valve Stenosis Moderate Mitral Valve Insufficiency Moderate RECOMMENDATIONS Risk factor modification Medical therapy Surgery consult for coronary revascularization Surgery consult for valvular disease DESCRIPTION OF PROCEDURE The patient arrived to the procedure lab. The risks and benefits of the procedure as well as a full d escription of our services here and current unavailability of surgical backup were fully explained to the patient and/or their significant other prior to the catheterization. The Timeout was completed, verifying the correct patient and procedure. The patient's procedural site was prepped and draped in the usual fashion. Local anesthetic was given subcutaneously to right groin region with Lidocaine 2%. Using a modified Seldinger technique, arterial access was obtained via the right femoral artery, a 4 Fr sheath was inserted Venous access was obtained via the right femoral vein, a 7Fr sheath was insert ed. O2 saturations were then obtained. A 7Fr thermal dilution catheter was inserted and right heart p ressures were recorded, it was then advanced to PA position for cardiac outputs. Thermal dilution car diac outputs were then recorded. Right Ventriculography performed. The Thermal dilution catheter was then removed. Left Coronary Artery selective angiography was performed in multiple views using a 4 Fr. JL5 catheter. Right Coronary Artery selective angiography was then performed in multip le views using a 4 Fr. 3DRC catheter.The arterial sheath was then pulled and manual compression appli ed until hemostasis achieved. The venous sheath was then pulled and manual compression applied until hemostasis achieved CORONARY ANGIOGRAPHY DOMINANCE: Left Dominant LEFT HEART ASSESSMENT Left Ventricular Ejection Fraction: by LV Gram 25 % Anterior Hypokinesis. Inferior Basal Hypokinesis. Inferior Mid Hypokinesis. Apical Hypokinesis Elevated Left Ventricular End Diastolic Pressure RIGHT HEART ASSESSMENT Thermal CO: 5.07 Thermal CI: 2.26 Bill CO: 8.91 Bill CI: 3.98 PW: / 19 PA: 40/14 28 RV: 52/-2 5 RA: /11 8 PVR: 142 SVR: 1010 Aortic Valve Area: 1.51 Aortic Valve Index: 0.67 Aortic Valve Mean Gradient: 16.6 Mitral Valve Area: 1.08 Mitral Valve index: 0.48 Mitral Valve Mean Gradient: 15.4 Right Heart pressures - elevated Pulmonary Hypertension Moderate Intracardiac shunting: None LEFT MAIN: Mild calcification, distal: concentric: 25 % Stenosis LEFT ANTERIOR DESCENDING ARTERY: PROX LAD: Moderate calcification, at the take off of DX1: 75 % Stenosis MID LAD: Moderate calcification, s/p DX2: hazy: 75 % Stenosis DISTAL LAD: 50 % Stenosis DIAGONAL 1: Proximal - Moderate calcification, Ostial - 75 % Stenosis CIRCUMFLEX ARTERY: OSTIAL CIRC: hazy: 85 % Stenosis PROX CIRC: Severe calcification MID CIRC: Moderate calcification RIGHT CORONARY ARTERY: diffuse moderate to severe high grade stenosis with the distal portion being s ubtotally occluded and filling late, faintly, and partially VALVE FINDINGS: Aortic Valve Stenosis - mild Mitral Valve Stenosis - moderate Mitral Valve Insufficiency - Grade 2 AORTIC ROOT: Angiographically normal COMPLICATIONS No Complications PROCEDURE MEDICATIONS Versed 1 mg IV Fentanyl 50 mcg IV SUMMARY OF HEMODYNAMIC DATA Time AIR REST ECG 07:46:31 RA / (8) SV 09:15:46 RV 52/-2, 5 09:17:06 PA 40/14 (28) PA 09:18:59 PW /30 (19) PV 09:20:58 LV 108/-15, 1 09:25:03 LV 110/-15, 8 09:25:10 LV 110/-15, 8 09:28:46 PW / (18) 09:28:46 LV 113/-14, 5 09:28:53 PW / (18) 09:28:53 LV 117/-10, 5 09:30:04 PW / (21) 09:30:04 LV 116/-10, 4 09:30:11 PW /26 (21) 09:30:11 LV 117/-12, 0 09:30:33 LV 107/-11, 7 09:30:39 LVp 113/-9, 2 09:30:44 AOp 101/47 (69) 09:30:49 PA 50/16 (33) 09:31:22 RV 47/15, 20 09:31:34 RA /14 (9) 09:31:59 AO 99/55 (72) SA 09:33:55 Valve Area (c P-P/ms Time AIR REST 1.08 09:28:53 1.51 09:30:44 Type SV CO (l/m) CI (l/m/ HR Time AIR REST Thermal 59.00 5.07 2.26 86 07:46:09 Bill 103.60 8.91 3.98 86 07:46:09 Label % O2 Pres/Loc Time AIR REST AO 90 PV 09:24:20 IVC 70 SV 09:24:24 SVC 60 09:24:47 PA 64 PA 09:24:52 Signed By Edilberto Stone MD On 06/05/2021 11:27:18 AM Edilberto Stone MD
== END | disposition home or self-care (01) ==
LOC: CLSP 07:16
PROVIDERS: Nurse Practitioner Gerontology; PCP Family Medicine; Referring Provider Internal Medicine Cardiovascular Disease; Visit Provider Internal Medicine Cardiovascular Disease
DX: I25.10 Atherosclerotic heart disease of native coronary artery without angina pectoris (principal); I42.9 Cardiomyopathy, unspecified; I11.0 Hypertensive heart disease with heart failure; I50.9 Heart failure, unspecified; I48.91 Unspecified atrial fibrillation; E11.9 Type 2 diabetes mellitus without complications; R06.00 Dyspnea, unspecified; E78.5 Hyperlipidemia, unspecified; E55.9 Vitamin D deficiency, unspecified; Z79.84 Long term (current) use of oral hypoglycemic drugs; Z79.01 Long term (current) use of anticoagulants; Z79.82 Long term (current) use of aspirin; Z79.899 Other long term (current) drug therapy; Z87.891 Personal history of nicotine dependence
CPT/HCPCS: 36415; 36416; 80048; 82803; 85610; 93460; 99152; 99153; J7040; C1751; C1769; C1894; Q9967

== ENCOUNTER → 2021-08-31 | Outpatient (REF) | payer SELFPAY ==
[2021-08-31 07:38] LABS: Hemoglobin 10.3 g/dL (13.0-16.5); Mean Corp Hgb Conc 30.3 g/dL (32-36); Mean Corpuscular Hgb 26.1 pg (27.0-32.0); Mean Corpuscular Volume 86.1 fL (80-94); Mean Platelet Vol. 10.7 fl (6.2-12.0); POSITIVE MORPHOLOGY YES; Platelet Count 180 K/mm3 (150-450); RBC Distribution Width CV 21.5 % (11.6-14.6); Red Blood Count 3.95 M/mm3 (4.6-6.2)
[2021-08-31 07:47] LABS: Scan Indicated on CBC? Y/N YES- FLAGS NOTED
[2021-08-31 07:52] LABS: ALB/GLOB Ratio 0.7 RATIO (0.9-2.4); AST(SGOT) 46 U/L (15-37); Alanine Aminotransfer ALT/SGPT 76 U/L (16-61); Albumin, Serum 2.9 g/dL (3.2-5.0); Alkaline Phosphatase 189 U/L (45-117); Anion Gap 6 (5-15); BUN 17 mg/dL (7-18); BUN/Creat Ratio 22.8 RATIO (10-20); Calcium,Total 8.9 mg/dL (8.5-10.1); Chloride 105 mmol/L (98-107); Creatinine, Serum 0.75 mg/dL (0.70-1.30); EST Glomerular Filtration Rate 108 mL/min (>60); Est Glom Filt Rate - Afr Amer 130 mL/min (>60); Globulin 4.3 g/dL (2.2-4.2); Glucose 100 mg/dL (74-106); Potassium 4.4 mmol/L (3.5-5.1); Protein, Total 7.2 g/dL (6.4-8.2); Sodium Level 135 mmol/L (136-145)
[2021-08-31 08:04] LABS: International Normalized Ratio 2.2; Prothrombin Time (Protime)PT. 24.1 SECONDS (11.7-14.9)
== END | disposition home or self-care (01) ==
LOC: OLS.SW1020 05:00
PROVIDERS: PCP Family Medicine; Visit Provider Family Medicine
DX: I50.42 Chronic combined systolic (congestive) and diastolic (congestive) heart failure (principal); E11.9 Type 2 diabetes mellitus without complications; Z79.01 Long term (current) use of anticoagulants
CPT/HCPCS: 36415; 80053; 85027; 85610

== ENCOUNTER → 2021-09-04 | Outpatient (REF) | payer SELFPAY ==
[2021-09-04 08:19] LABS: Hematocrit 31.2 % (40-54); Hemoglobin 9.6 g/dL (13.0-16.5); Mean Corp Hgb Conc 30.8 g/dL (32-36); Mean Corpuscular Hgb 25.9 pg (27.0-32.0); Mean Corpuscular Volume 84.1 fL (80-94); Mean Platelet Vol. 10.5 fl (6.2-12.0); POSITIVE MORPHOLOGY YES; Platelet Count 207 K/mm3 (150-450); RBC Distribution Width CV 21.2 % (11.6-14.6); RBC Distribution Width SD 65.2 fl (35.1-43.9); Red Blood Count 3.71 M/mm3 (4.6-6.2); White Blood Count 8.6 K/mm3 (4.4-11.0)
[2021-09-04 08:37] LABS: ALB/GLOB Ratio 0.7 RATIO (0.9-2.4); AST(SGOT) 40 U/L (15-37); Alanine Aminotransfer ALT/SGPT 68 U/L (16-61); Albumin, Serum 2.6 g/dL (3.2-5.0); Alkaline Phosphatase 164 U/L (45-117); Anion Gap 6 (5-15); BUN 16 mg/dL (7-18); BUN/Creat Ratio 26.1 RATIO (10-20); Calcium,Total 8.7 mg/dL (8.5-10.1); Chloride 106 mmol/L (98-107); Creatinine, Serum 0.61 mg/dL (0.70-1.30); EST Glomerular Filtration Rate 135 mL/min (>60); Est Glom Filt Rate - Afr Amer 164 mL/min (>60); Globulin 3.9 g/dL (2.2-4.2); Glucose 72 mg/dL (74-106); Protein, Total 6.5 g/dL (6.4-8.2); Sodium Level 138 mmol/L (136-145)
[2021-09-04 08:43] LABS: International Normalized Ratio 3.2; Prothrombin Time (Protime)PT. 32.5 SECONDS (11.7-14.9)
[2021-09-04 08:49] LABS: Scan Indicated on CBC? Y/N YES- FLAGS NOTED
== END | disposition home or self-care (01) ==
LOC: OLS.SW1020 04:00
PROVIDERS: PCP Family Medicine; Visit Provider Family Medicine
DX: I50.9 Heart failure, unspecified (principal); Z79.899 Other long term (current) drug therapy
CPT/HCPCS: 36415; 80053; 85027; 85610

== ENCOUNTER → 2021-09-07 | Outpatient (REF) | payer SELFPAY ==
[2021-09-07 09:23] LABS: Hematocrit 32.9 % (40-54); Hemoglobin 9.9 g/dL (13.0-16.5); Mean Corp Hgb Conc 30.1 g/dL (32-36); Mean Corpuscular Hgb 25.9 pg (27.0-32.0); Mean Corpuscular Volume 86.1 fL (80-94); Mean Platelet Vol. 9.9 fl (6.2-12.0); POSITIVE MORPHOLOGY YES; Platelet Count 224 K/mm3 (150-450); RBC Distribution Width CV 20.4 % (11.6-14.6); RBC Distribution Width SD 64.3 fl (35.1-43.9); Red Blood Count 3.82 M/mm3 (4.6-6.2); White Blood Count 6.4 K/mm3 (4.4-11.0)
[2021-09-07 09:37] LABS: ALB/GLOB Ratio 0.6 RATIO (0.9-2.4); AST(SGOT) 42 U/L (15-37); Alanine Aminotransfer ALT/SGPT 70 U/L (16-61); Albumin, Serum 2.5 g/dL (3.2-5.0); Alkaline Phosphatase 164 U/L (45-117); Anion Gap 6 (5-15); BUN 13 mg/dL (7-18); Calcium,Total 8.4 mg/dL (8.5-10.1); Chloride 105 mmol/L (98-107); Creatinine, Serum 0.68 mg/dL (0.70-1.30); EST Glomerular Filtration Rate 119 mL/min (>60); Est Glom Filt Rate - Afr Amer 144 mL/min (>60); Glucose 80 mg/dL (74-106); Potassium 4.1 mmol/L (3.5-5.1); Protein, Total 6.5 g/dL (6.4-8.2); Sodium Level 138 mmol/L (136-145)
[2021-09-07 10:08] LABS: Scan Indicated on CBC? Y/N YES- FLAGS NOTED
== END | disposition home or self-care (01) ==
LOC: OLS.SW1020 04:00
PROVIDERS: PCP Family Medicine; Visit Provider Family Medicine
DX: I50.9 Heart failure, unspecified (principal); Z79.899 Other long term (current) drug therapy
CPT/HCPCS: 36415; 80053; 85027; 85610

== ENCOUNTER → 2021-09-11 | Outpatient (REF) | payer SELFPAY ==
[2021-09-11 08:57] LABS: Hematocrit 31.3 % (40-54); Hemoglobin 9.7 g/dL (13.0-16.5); Mean Corpuscular Hgb 26.5 pg (27.0-32.0); Mean Corpuscular Volume 85.5 fL (80-94); Mean Platelet Vol. 9.8 fl (6.2-12.0); Platelet Count 256 K/mm3 (150-450); RBC Distribution Width SD 63.4 fl (35.1-43.9); Red Blood Count 3.66 M/mm3 (4.6-6.2); White Blood Count 6.2 K/mm3 (4.4-11.0)
[2021-09-11 09:21] LABS: ALB/GLOB Ratio 0.7 RATIO (0.9-2.4); AST(SGOT) 22 U/L (15-37); Alanine Aminotransfer ALT/SGPT 39 U/L (16-61); Albumin, Serum 2.5 g/dL (3.2-5.0); Alkaline Phosphatase 153 U/L (45-117); Anion Gap 6 (5-15); BUN 12 mg/dL (7-18); BUN/Creat Ratio 17.5 RATIO (10-20); Calcium,Total 8.7 mg/dL (8.5-10.1); Chloride 107 mmol/L (98-107); Creatinine, Serum 0.69 mg/dL (0.70-1.30); EST Glomerular Filtration Rate 118 mL/min (>60); Est Glom Filt Rate - Afr Amer 143 mL/min (>60); Globulin 3.6 g/dL (2.2-4.2); Glucose 77 mg/dL (74-106); Protein, Total 6.1 g/dL (6.4-8.2); Sodium Level 142 mmol/L (136-145)
[2021-09-11 09:28] LABS: International Normalized Ratio 2.3; Prothrombin Time (Protime)PT. 25.2 SECONDS (11.7-14.9)
== END | disposition home or self-care (01) ==
LOC: OLS.SW1020 04:00
PROVIDERS: PCP Family Medicine; Visit Provider Family Medicine
DX: I50.9 Heart failure, unspecified (principal); Z79.01 Long term (current) use of anticoagulants
CPT/HCPCS: 36415; 80053; 85027; 85610

== ENCOUNTER → 2021-09-14 | Outpatient (REF) | payer SELFPAY ==
[2021-09-14 07:51] LABS: Hematocrit 29.8 % (40-54); Hemoglobin 9.2 g/dL (13.0-16.5); Mean Corp Hgb Conc 30.9 g/dL (32-36); Mean Corpuscular Hgb 26.3 pg (27.0-32.0); Mean Corpuscular Volume 85.1 fL (80-94); Mean Platelet Vol. 9.9 fl (6.2-12.0); Platelet Count 258 K/mm3 (150-450); RBC Distribution Width SD 62.5 fl (35.1-43.9); White Blood Count 6.1 K/mm3 (4.4-11.0)
[2021-09-14 08:09] LABS: ALB/GLOB Ratio 0.7 RATIO (0.9-2.4); AST(SGOT) 23 U/L (15-37); Alanine Aminotransfer ALT/SGPT 31 U/L (16-61); Albumin, Serum 2.5 g/dL (3.2-5.0); Alkaline Phosphatase 157 U/L (45-117); Anion Gap 6 (5-15); BUN 16 mg/dL (7-18); BUN/Creat Ratio 23.8 RATIO (10-20); Calcium,Total 8.7 mg/dL (8.5-10.1); Chloride 109 mmol/L (98-107); Creatinine, Serum 0.67 mg/dL (0.70-1.30); EST Glomerular Filtration Rate 122 mL/min (>60); Est Glom Filt Rate - Afr Amer 147 mL/min (>60); Globulin 3.7 g/dL (2.2-4.2); Glucose 88 mg/dL (74-106); Potassium 3.9 mmol/L (3.5-5.1); Protein, Total 6.2 g/dL (6.4-8.2); Sodium Level 143 mmol/L (136-145)
[2021-09-14 08:54] LABS: International Normalized Ratio 2.2; Prothrombin Time (Protime)PT. 23.9 SECONDS (11.7-14.9)
== END | disposition home or self-care (01) ==
LOC: OLS.SW1020 05:00
PROVIDERS: PCP Family Medicine; Visit Provider Family Medicine
DX: I50.9 Heart failure, unspecified (principal); Z79.899 Other long term (current) drug therapy
CPT/HCPCS: 36415; 80053; 85027; 85610

== ENCOUNTER → 2021-09-18 | Outpatient (REF) | payer SELFPAY ==
[2021-09-18 09:00] LABS: Hematocrit 29.5 % (40-54); Hemoglobin 9.2 g/dL (13.0-16.5); Mean Corp Hgb Conc 31.2 g/dL (32-36); Mean Corpuscular Hgb 26.4 pg (27.0-32.0); Mean Corpuscular Volume 84.8 fL (80-94); Mean Platelet Vol. 9.9 fl (6.2-12.0); Platelet Count 245 K/mm3 (150-450); RBC Distribution Width CV 19.4 % (11.6-14.6); RBC Distribution Width SD 60.3 fl (35.1-43.9); Red Blood Count 3.48 M/mm3 (4.6-6.2); White Blood Count 7.4 K/mm3 (4.4-11.0)
[2021-09-18 09:35] LABS: ALB/GLOB Ratio 0.6 RATIO (0.9-2.4); AST(SGOT) 17 U/L (15-37); Alanine Aminotransfer ALT/SGPT 22 U/L (16-61); Albumin, Serum 2.4 g/dL (3.2-5.0); Alkaline Phosphatase 141 U/L (45-117); Anion Gap 6 (5-15); BUN 11 mg/dL (7-18); BUN/Creat Ratio 19.9 RATIO (10-20); Calcium,Total 8.5 mg/dL (8.5-10.1); Chloride 106 mmol/L (98-107); Creatinine, Serum 0.55 mg/dL (0.70-1.30); EST Glomerular Filtration Rate 152 mL/min (>60); Est Glom Filt Rate - Afr Amer 184 mL/min (>60); Globulin 3.8 g/dL (2.2-4.2); Glucose 76 mg/dL (74-106); Potassium 4.1 mmol/L (3.5-5.1); Protein, Total 6.2 g/dL (6.4-8.2); Sodium Level 139 mmol/L (136-145)
== END | disposition home or self-care (01) ==
LOC: OLS.SW1020 04:00
PROVIDERS: PCP Family Medicine; Referring Provider Family Medicine; Visit Provider Family Medicine
DX: I50.9 Heart failure, unspecified (principal)
CPT/HCPCS: 36415; 80053; 85027

== ENCOUNTER → 2021-10-25 | Outpatient (CLI) | payer MEDICARE, SELFPAY ==
--- NOTE | 2021-10-25 08:48 | ECHOD_ITS ---
Reason For Study: S/P CABG, AVR & MV REPAIR 07/27/21 Procedure This was a 2D Doppler, Color Flow transthoracic echocardiogram. The study was technically difficult. Exam performed in department. PT was very lightheaded and dizziness today. Left Ventricle Upon the 2D echocardiographic images obtained there appears to be mild to moderate left ventricular dilatation with global left ventricular systolic dysfunction. The estimated ejection fraction is 30 %. Unable to assess diastolic dysfunction due to arrhythmia. Right Ventricle Normal RV size. Normal systolic function. Atria The left atrium is mildly enlarged. The right atrium is mildly enlarged. No doppler evidence for ASD. Mitral Valve The mitral valve chordae are thickened and/or calcified. The mitral papillary muscle appears thickened and/or calcified. An annuloplasty ring is noted in the mitral position. Tricuspid Valve Normal tricuspid valve. Trivial tricuspid valve insufficiency. Right ventricular systolic pressure estimated to be 36 mmHg. Aortic Valve Stable appearing bioprosthetic aortic valve apparatus. Pulmonic Valve The pulmonic valve is not well visualized. Great Vessels The aortic root is not well visualized. Pericardium/Pleural No pericardial effusion. MMode/2D Measurements & Calculations LVIDd: 6.1 cm IVSd: 0.98 cm LAV(MOD-bp): 92.0 ml LVIDs: 5.0 cm LVPWd: 1.0 cm LAV(MOD-bp) Indexed: 45.8 ml/m2 RVDd: 3.3 cm FS: 18.6 % LAV(MOD-sp2): 94.2 ml LAV(MOD-sp4): 84.7 ml SV(MOD-sp4): 49.2 ml LVAd ap4: 36.5 cm2 LVAd ap2: 37.9 cm2 LVLd ap4: 9.1 cm LVLd ap2: 8.4 cm EDV(MOD-sp4): 124.0 ml EDV(MOD-sp2): 145.1 ml EDV(sp4-el): 124.7 ml EDV(sp2-el): 145.3 ml LVAs ap4: 26.4 cm2 LVAs ap2: 31.4 cm2 LVLs ap4: 7.8 cm LVLs ap2: 8.4 cm ESV(MOD-sp4): 74.9 ml ESV(MOD-sp2): 99.9 ml ESV(sp4-el): 76.0 ml ESV(sp2-el): 99.5 ml EF(MOD-sp4): 39.7 % EF(MOD-sp2): 31.2 % EF(sp4-el): 39.1 % SV(MOD-sp2): 45.2 ml SV(sp4-el): 48.8 ml LA A4 area: 24.1 cm2 LA dimension(2D): 5.1 cm RA A4 area: 26.1 cm2 Doppler Measurements & Calculations MV E max kenneth: 122.7 cm/sec MV V2 max: 172.6 cm/sec Ao V2 max: 187.3 cm/sec MV max P.9 mmHg Ao max P.2 mmHg MV V2 mean: 104.0 cm/sec Ao V2 mean: 117.6 cm/sec MV mean P.9 mmHg Ao mean P.4 mmHg MV V2 VTI: 36.6 cm Ao V2 VTI: 31.6 cm LV V1 max: 91.9 cm/sec PA V2 max: 76.2 cm/sec TR max kenneth: 288.0 cm/sec LV V1 max P.4 mmHg TR max P.4 mmHg LV V1 mean P.5 mmHg LV V1 mean: 57.5 cm/sec LV V1 VTI: 15.9 cm ECHO/Echo Complete Interpretation Summary The study was technically difficult. Upon the 2D echocardiographic images obtained there appears to be mild to moder ate left ventricular dilatation with global left ventricular systolic dysfunction. The estimated ejection fraction is 30 %. The left atrium is mildly enlarged. The right atrium is mildly enlarged. An annuloplasty ring is noted in the mitral position. The mitral valve chordae are thickened and/or calcified. The mitral papillary muscle appears thickened and/or calcified. Trivial tricuspid valve insufficiency. Stable appearing bioprosthetic aortic valve apparatus. Right ventricular systolic pressure estimated to be 36 mmHg. Unable to assess diastolic dysfunction due to arrhythmia. Ordering Physician: Sophia Peguero Referring Physician: Kvng Moody Performed By: Emerita Verdin, LETY, RVT
--- NOTE | 2021-10-25 09:51 | RAD_ITS ---
STUDY: X-RAY CHEST REASON FOR EXAM: Male, 76 years old. Cough, Post CABG, Valve repair TECHNIQUE: PA and lateral views of the chest. COMPARISON: May 21, 2021 chest x-ray FINDINGS: There is improving aeration of the lungs. There is minimal remaining blunting of the costophrenic angles suggestive of small effusions. There is nonspecific eventration of the left hemidiaphragm. Sternal cerclage wires are present from a prior sternotomy. Normal mediastinum and evita. Normal visualized pulmonary arteries. Normal visualized aortic arch. There is a visualized cardiac valve repair. Nature clip is demonstrated. Normal visualized thoracic spine. Normal visualized ribs, clavicles, and shoulders. There is no demonstrated abnormality of the visualized soft tissue structures of the upper abdomen. RAD/Chest PA and Lateral IMPRESSION: Status poststernotomy, status post cardiac valve repair, trace remaining bilateral effusions left greater than right. Electronically Signed: Christina Crawford MD at 4:18 EDT ,
[2021-10-25 10:54] LABS: Absolute Lymphocyte Count 1.41 X10^3/uL (0.83-4.51); Absolute Neutrophil Count 3.7 X10^3/uL (2.0-7.7); Basophil# 0.03 X10^3/uL; Basophil% 0.5 % (0-1); Eosinophil# 0.07 X10^3/uL; Eosinophils% 1.2 % (0-5); Hematocrit 35.3 % (40-54); Hemoglobin 10.8 g/dL (13.0-16.5); Lymphocyte # 1.41 X10^3/ul (0.83-4.51); Lymphocyte % 24.6 % (19-41); Mean Corp Hgb Conc 30.6 g/dL (32-36); Mean Corpuscular Hgb 26.5 pg (27.0-32.0); Mean Corpuscular Volume 86.7 fL (80-94); Monocyte# 0.54 X10^3/uL; Monocyte% 9.4 % (0-10); NRBC Flagged by Analyzer 0 % (0-5); Neutrophil # 3.66 X10^3/uL (2.7-7.7); Neutrophil % 63.8 % (47-70); Platelet Count 210 K/mm3 (150-450); RBC Distribution Width CV 16.7 % (11.6-14.6); RBC Distribution Width SD 53.1 fl (35.1-43.9); Red Blood Count 4.07 M/mm3 (4.6-6.2); White Blood Count 5.7 K/mm3 (4.4-11.0)
[2021-10-25 11:10] LABS: BNP,B-Type NATRIURETIC PEPTIDE 301.7 pg/mL (0-100)
[2021-10-25 11:15] LABS: ALB/GLOB Ratio 0.8 RATIO (0.9-2.4); AST(SGOT) 19 U/L (15-37); Alanine Aminotransfer ALT/SGPT 22 U/L (16-61); Albumin, Serum 3.3 g/dL (3.2-5.0); Alkaline Phosphatase 178 U/L (45-117); Anion Gap 5 (5-15); BUN 16 mg/dL (7-18); BUN/Creat Ratio 18.6 RATIO (10-20); Chloride 106 mmol/L (98-107); Creatinine, Serum 0.86 mg/dL (0.70-1.30); EST Glomerular Filtration Rate 91 mL/min (>60); Est Glom Filt Rate - Afr Amer 111 mL/min (>60); Globulin 4.1 g/dL (2.2-4.2); Glucose 90 mg/dL (74-106); Potassium 3.2 mmol/L (3.5-5.1); Protein, Total 7.4 g/dL (6.4-8.2); Sodium Level 141 mmol/L (136-145)
== END | disposition home or self-care (01) ==
PROVIDERS: PCP Family Medicine; Referring Provider Nurse Practitioner Gerontology; Visit Provider Nurse Practitioner Gerontology
DX: I42.9 Cardiomyopathy, unspecified (principal); R05.9 Cough, unspecified; I35.0 Nonrheumatic aortic (valve) stenosis; I34.2 Nonrheumatic mitral (valve) stenosis; Z98.890 Other specified postprocedural states; Z95.1 Presence of aortocoronary bypass graft; Z95.3 Presence of xenogenic heart valve
CPT/HCPCS: 36415; 71046; 80053; 83880; 85025; 93306

== ENCOUNTER → 2021-11-15 | Outpatient (CLI) | payer MEDICARE, SELFPAY ==
[2021-11-15 15:38] LABS: Anion Gap 6 (5-15); BUN 18 mg/dL (7-18); Calcium,Total 8.7 mg/dL (8.5-10.1); Chloride 107 mmol/L (98-107); Creatinine, Serum 0.86 mg/dL (0.70-1.30); EST Glomerular Filtration Rate 92 mL/min (>60); Est Glom Filt Rate - Afr Amer 111 mL/min (>60); Glucose 102 mg/dL (74-106); Potassium 3.7 mmol/L (3.5-5.1); Sodium Level 142 mmol/L (136-145)
== END | disposition home or self-care (01) ==
LOC: LAB 14:14
PROVIDERS: PCP Family Medicine; Referring Provider Internal Medicine Cardiovascular Disease; Visit Provider Internal Medicine Cardiovascular Disease
DX: R42 Dizziness and giddiness (principal); E87.6 Hypokalemia
CPT/HCPCS: 36415; 80048

== ENCOUNTER → 2021-11-22 | Outpatient (CLI) | payer MEDICARE, SELFPAY | END | disposition home or self-care (01) | LOC: PSN 10:28 | PROVIDERS: PCP Family Medicine; Referring Provider Internal Medicine Cardiovascular Disease; Visit Provider Internal Medicine Cardiovascular Disease | DX: R42 Dizziness and giddiness (principal); I50.20 Unspecified systolic (congestive) heart failure; I42.9 Cardiomyopathy, unspecified; I48.0 Paroxysmal atrial fibrillation; E87.6 Hypokalemia | CPT/HCPCS: 93225; 93226 ==

== ENCOUNTER → 2021-12-25 | Outpatient (CLI) | payer MEDICARE, SELFPAY ==
[2021-12-25 12:25] LABS: Hematocrit 38.3 % (40-54); Hemoglobin 11.9 g/dL (13.0-16.5); Mean Corp Hgb Conc 31.1 g/dL (32-36); Mean Corpuscular Hgb 26.5 pg (27.0-32.0); Mean Corpuscular Volume 85.3 fL (80-94); Mean Platelet Vol. 10.7 fl (6.2-12.0); Platelet Count 206 K/mm3 (150-450); RBC Distribution Width CV 15.7 % (11.6-14.6); RBC Distribution Width SD 48.6 fl (35.1-43.9); Red Blood Count 4.49 M/mm3 (4.6-6.2)
[2021-12-25 13:07] LABS: AST(SGOT) 34 U/L (15-37); Alanine Aminotransfer ALT/SGPT 27 U/L (16-61); Albumin, Serum 3.5 g/dL (3.2-5.0); Alkaline Phosphatase 151 U/L (45-117); Anion Gap 5 (5-15); BUN 18 mg/dL (7-18); BUN/Creat Ratio 19.5 RATIO (10-20); Calcium,Total 8.9 mg/dL (8.5-10.1); Chloride 107 mmol/L (98-107); Cholesterol 106 mg/dL (200); Creatinine, Serum 0.92 mg/dL (0.70-1.30); EST Glomerular Filtration Rate 84 mL/min (>60); Est Glom Filt Rate - Afr Amer 102 mL/min (>60); Globulin 4.2 g/dL (2.2-4.2); Glucose 99 mg/dL (74-106); High Density Lipoprotein 38 mg/dL; PSA,Total - Annual Screen 0.64 ng/mL (0.00-4.00); Potassium 3.9 mmol/L (3.5-5.1); Protein, Total 7.7 g/dL (6.4-8.2); Sodium Level 139 mmol/L (136-145); Triglycerides 81 mg/dL; Very Low Density Lipoprotein 16 mg/dL (5-40)
== END | disposition home or self-care (01) ==
LOC: LAB 11:46
PROVIDERS: Internal Medicine Cardiovascular Disease; PCP Family Medicine; Referring Provider Urology; Visit Provider Urology
DX: E78.00 Pure hypercholesterolemia, unspecified (principal); Z12.5 Encounter for screening for malignant neoplasm of prostate
CPT/HCPCS: 36415; 80048; 80061; 80076; 84153; 85027; G0103

== ENCOUNTER 2022-01-18 15:28 | Inpatient (IN) | payer MEDICARE, SELFPAY ==
[2022-01-18 15:37] VITALS: BP 109/67; PULSE 116; RESP 16; TEMP 37.4; O2SAT 97; BMI 22.3
[2022-01-18 16:12] VITALS: BP 109/67; PULSE 116; RESP 16; TEMP 37.4; O2SAT 97
[2022-01-18] MEDS: SACUBITRIL/VALSARTAN 24/26 MG TABLET 1 EACH PO (17:03)
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
[2022-01-18] MEDS: Methocarbamol 500 MG Tablet PO (20:28)
[2022-01-18] MEDS: Mirtazapine 15 MG Tablet PO (20:28)
[2022-01-18] MEDS: Senna/Docusate Sodium 1 Tablet 2 TABLET PO (20:28)
--- NOTE | 2022-01-18 21:20 | NURSING ---
Patient admitted to TCU today. A&O x3, pleasant with care. Right knee edematous proximal to patella. Patient denies pain at this time, but states he has not been able to put weight on right leg due to knee pain and has not walked. Sutures to top of forehead intact, no s/sx infection. Medications administered whole with water, no difficulty swallowing noted. Will continue to monitor.
[2022-01-19 05:33] VITALS: BP 126/70; PULSE 96
[2022-01-19] MEDS: Metoprolol(XL)Succ 25 MG Tablet PO (05:33)
[2022-01-19] MEDS: Cholecalciferol (Vit D3) 125 MCG CAPSULE (5,000 UNITS) PO (05:33)
[2022-01-19] MEDS: Atorvastatin Calcium 20 MG Tablet PO (05:33)
[2022-01-19] MEDS: Alendronate Sodium 70 MG Tablet PO (05:33)
[2022-01-19] MEDS: SACUBITRIL/VALSARTAN 24/26 MG TABLET 1 EACH PO ×2 (05:33→17:39)
[2022-01-19] MEDS: Pantoprazole Sodium 20 MG Tablet PO (05:33)
[2022-01-19] MEDS: Methocarbamol 500 MG Tablet PO ×3 (05:34→20:48)
[2022-01-19 07:13] LABS: Absolute Neutrophil Count 6.7 X10^3/uL (2.0-7.7); Basophil# 0.03 X10^3/uL; Basophil% 0.3 % (0-1); Eosinophil# 0.07 X10^3/uL; Eosinophils% 0.7 % (0-5); Hemoglobin 8.5 g/dL (13.0-16.5); Mean Corp Hgb Conc 31.5 g/dL (32-36); Mean Corpuscular Hgb 26.4 pg (27.0-32.0); Mean Corpuscular Volume 83.9 fL (80-94); Mean Platelet Vol. 9.3 fl (6.2-12.0); Monocyte% 10.7 % (0-10); NRBC Flagged by Analyzer 0 % (0-5); Neutrophil # 6.71 X10^3/uL (2.7-7.7); Neutrophil % 71.9 % (47-70); Platelet Count 239 K/mm3 (150-450); RBC Distribution Width CV 15.2 % (11.6-14.6); RBC Distribution Width SD 46.9 fl (35.1-43.9); Red Blood Count 3.22 M/mm3 (4.6-6.2); White Blood Count 9.4 K/mm3 (4.4-11.0)
[2022-01-19] MEDS: Glimepiride 1 MG Tablet PO (07:44)
[2022-01-19] MEDS: traMADol 50 MG Tablet PO (07:44)
[2022-01-19 07:56] LABS: Anion Gap 6 (5-15); BUN 24 mg/dL (7-18); Calcium,Total 8.7 mg/dL (8.5-10.1); Chloride 102 mmol/L (98-107); Creatinine, Serum 0.71 mg/dL (0.70-1.30); EST Glomerular Filtration Rate 115 mL/min (>60); Est Glom Filt Rate - Afr Amer 139 mL/min (>60); Estimated Creatinine Clearance 69.76 ml/min; Glucose 119 mg/dL (74-106); Potassium 4.5 mmol/L (3.5-5.1); Sodium Level 132 mmol/L (136-145)
[2022-01-19] MEDS: Tuberculin,Purif.prot.deriv. 50 TU/ML Vial 0.1 ML ID (09:19)
[2022-01-19 14:50] VITALS: BP 98/53; PULSE 94; RESP 18; TEMP 36.7; O2SAT 97
[2022-01-19] MEDS: Mirtazapine 15 MG Tablet PO (20:48)
[2022-01-19 21:00] VITALS: PULSE 60; RESP 16; O2SAT 96
[2022-01-20] MEDS: traMADol 50 MG Tablet PO (00:46)
[2022-01-20] MEDS: oxyCODONE 5 MG Tablet PO (03:17)
[2022-01-20] MEDS: SACUBITRIL/VALSARTAN 24/26 MG TABLET 1 EACH PO ×2 (05:33→17:48)
[2022-01-20] MEDS: Atorvastatin Calcium 20 MG Tablet PO (05:33)
[2022-01-20] MEDS: Iron Polysaccharide Complex 150 MG CAPSULE PO (05:33)
[2022-01-20] MEDS: Methocarbamol 500 MG Tablet PO ×3 (05:33→19:51)
[2022-01-20 05:34] VITALS: BP 116/60; PULSE 79
[2022-01-20] MEDS: Metoprolol(XL)Succ 25 MG Tablet PO (05:34)
[2022-01-20] MEDS: Cholecalciferol (Vit D3) 125 MCG CAPSULE (5,000 UNITS) PO (05:34)
[2022-01-20] MEDS: Pantoprazole Sodium 20 MG Tablet PO (05:34)
[2022-01-20] MEDS: Senna/Docusate Sodium 1 Tablet 2 TABLET PO ×2 (05:34→17:48)
[2022-01-20] MEDS: Glimepiride 1 MG Tablet PO (07:55)
[2022-01-20] MEDS: Ascorbic Acid 500 MG Tablet PO (07:55)
[2022-01-20 07:58] VITALS: RESP 16
[2022-01-20 13:12] VITALS: BP 99/62; PULSE 64; RESP 16; TEMP 36.8; O2SAT 99
[2022-01-20] MEDS: Polyethylene Glycol 3350 17 GM PACKET PO (13:15)
[2022-01-20 17:45] LABS: Bedside Glucose 90 mg/dL (74-106)
[2022-01-20] MEDS: Mirtazapine 15 MG Tablet PO (19:51)
[2022-01-21] MEDS: Polyethylene Glycol 3350 17 GM PACKET PO (05:17)
[2022-01-21] MEDS: SACUBITRIL/VALSARTAN 24/26 MG TABLET 1 EACH PO ×2 (05:18→17:36)
[2022-01-21] MEDS: Iron Polysaccharide Complex 150 MG CAPSULE PO (05:18)
[2022-01-21 05:19] VITALS: BP 128/65; PULSE 72
[2022-01-21] MEDS: Methocarbamol 500 MG Tablet PO ×3 (05:19→20:35)
[2022-01-21] MEDS: Senna/Docusate Sodium 1 Tablet 2 TABLET PO ×2 (05:19→17:36)
[2022-01-21] MEDS: Metoprolol(XL)Succ 25 MG Tablet PO (05:19)
[2022-01-21] MEDS: Pantoprazole Sodium 20 MG Tablet PO (05:19)
[2022-01-21] MEDS: Cholecalciferol (Vit D3) 125 MCG CAPSULE (5,000 UNITS) PO (05:19)
[2022-01-21] MEDS: Atorvastatin Calcium 20 MG Tablet PO (05:19)
[2022-01-21 05:37] LABS: Hematocrit 28.5 % (40-54); Hemoglobin 8.9 g/dL (13.0-16.5)
[2022-01-21 06:12] LABS: International Normalized Ratio 1.6; Prothrombin Time (Protime)PT. 18.9 SECONDS (11.7-14.9)
[2022-01-21 06:40] LABS: Bedside Glucose 111 mg/dL (74-106)
[2022-01-21] MEDS: Glimepiride 1 MG Tablet PO (08:08)
[2022-01-21] MEDS: Ascorbic Acid 500 MG Tablet PO (08:08)
--- NOTE | 2022-01-21 11:47 | NURSING ---
[employer] Note; Activity Asset: Mahesh Casanova has recently lost his and has stated he is still grieving. Prefers in room independent activities at this time.
[2022-01-21] MEDS: traMADol 50 MG Tablet PO (12:29)
[2022-01-21 13:45] VITALS: BP 99/57; PULSE 57; RESP 18; TEMP 36.6; O2SAT 100
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
[2022-01-21 17:41] VITALS: BP 130/89; PULSE 111
[2022-01-21] MEDS: Mirtazapine 15 MG Tablet PO (20:34)
[2022-01-21] MEDS: MELATONIN 10 MG TABLET PO (20:35)
[2022-01-21 20:41] VITALS: PULSE 80; RESP 18; O2SAT 98
[2022-01-22] MEDS: Acetaminophen 500 MG Tablet 1000 MG PO (04:57)
[2022-01-22] MEDS: Methocarbamol 500 MG Tablet PO ×3 (04:58→23:11)
[2022-01-22] MEDS: Iron Polysaccharide Complex 150 MG CAPSULE PO (04:58)
[2022-01-22] MEDS: Cholecalciferol (Vit D3) 125 MCG CAPSULE (5,000 UNITS) PO (04:58)
[2022-01-22] MEDS: SACUBITRIL/VALSARTAN 24/26 MG TABLET 1 EACH PO ×2 (04:58→17:04)
[2022-01-22] MEDS: Pantoprazole Sodium 20 MG Tablet PO (04:58)
[2022-01-22] MEDS: Atorvastatin Calcium 20 MG Tablet PO (04:58)
[2022-01-22 05:00] VITALS: BP 100/58; PULSE 60; RESP 16
[2022-01-22 07:36] LABS: Bedside Glucose 103 mg/dL (74-106)
[2022-01-22 07:59] VITALS: BP 112/67; PULSE 61
[2022-01-22] MEDS: Metoprolol(XL)Succ 25 MG Tablet PO (07:59)
[2022-01-22] MEDS: Ascorbic Acid 500 MG Tablet PO (08:00)
[2022-01-22] MEDS: Glimepiride 1 MG Tablet PO (08:00)
[2022-01-22] MEDS: oxyCODONE 5 MG Tablet PO (08:54)
[2022-01-22 09:26] VITALS: PULSE 82; RESP 16; O2SAT 97
--- NOTE | 2022-01-22 10:13 | CASEMGMT ---
Social Work Met with patient to complete initial assessment. Introduced self and role. Verified/updated contacts. Discussed code status and MOLST form. Pt confirmed DNR-CC. MOLST placed in Dr omalley. Educated to [facility] insurance with [employer] 01/22, and continued stay is not guaranteed with each review. Pts goal is to return home alone. See SW assessment for further details. SW to continue to follow for DC planning and support from 's recent passing. Roxanna Wiley, [employer]
[2022-01-22 11:15] VITALS: BP 110/60; PULSE 75
[2022-01-22 11:22] VITALS: BP 124/86; PULSE 100; O2SAT 96
[2022-01-22 14:51] VITALS: BP 85/38; PULSE 69; RESP 16; TEMP 36.1; O2SAT 100
[2022-01-22] MEDS: Senna/Docusate Sodium 1 Tablet 2 TABLET PO (17:04)
--- NOTE | 2022-01-22 18:07 | NURSING ---
Notified Dr. Mixon of pt not responding correctly and becoming weak. Received orders to transfer pt to ED. Called report to Carmelo in ED. Notified Guilherme, patient's son and he stated he would contact his sister.
--- NOTE | 2022-01-22 18:46 | NURSING ---
1807 pt down to ED
--- NOTE | 2022-01-22 22:57 | NURSING ---
returns from ED at this time via cot, ED reporting nurse states patient treated for chronic anemia and Afib treated with metoprolol in ED and received cat scan and chest xray which were negative. No new orders per reporting nurse (Anahy)
[2022-01-22] MEDS: Mirtazapine 15 MG Tablet PO (23:11)
[2022-01-22] MEDS: MELATONIN 10 MG TABLET PO (23:11)
[2022-01-23] MEDS: Atorvastatin Calcium 20 MG Tablet PO (05:12)
[2022-01-23] MEDS: Acetaminophen 500 MG Tablet 1000 MG PO ×3 (05:12→19:49)
[2022-01-23] MEDS: Methocarbamol 500 MG Tablet PO ×3 (05:12→19:49)
[2022-01-23] MEDS: Pantoprazole Sodium 20 MG Tablet PO (05:12)
[2022-01-23] MEDS: SACUBITRIL/VALSARTAN 24/26 MG TABLET 1 EACH PO (05:12)
[2022-01-23] MEDS: Iron Polysaccharide Complex 150 MG CAPSULE PO (05:13)
[2022-01-23] MEDS: Cholecalciferol (Vit D3) 125 MCG CAPSULE (5,000 UNITS) PO (05:13)
[2022-01-23 05:16] VITALS: BP 122/74; PULSE 104; RESP 16
[2022-01-23 06:35] LABS: Bedside Glucose 88 mg/dL (74-106)
[2022-01-23 08:32] VITALS: BP 87/58; PULSE 89
[2022-01-23] MEDS: Ascorbic Acid 500 MG Tablet PO (08:34)
[2022-01-23] MEDS: Glimepiride 1 MG Tablet PO (08:34)
--- NOTE | 2022-01-23 10:00 | CASEMGMT ---
Social Work Plan of care meeting held. Patient present, patient request to have no family present for meeting. Patient currently requires x2 assist for mobility/ADL's. This child welfare social worker communicating to patient that insurance update is due on 01/29/2022 and there is no guarantee of continued stay approval. Patient voiced understanding and agreeable to child welfare social worker following up with patient later in the day to discuss discharge plan. Patient wishes to return to home alone but is aware that patient is not able to do this at this time due to level of care needs. Patient to continue with further care and treatment on the Transitional Care Unit. Social work to follow up with patient later today to discuss further discharge planning. Social Work to continue to follow. Libia Butcher MSW, VITO-S
[2022-01-23 13:15] VITALS: BP 95/43; PULSE 54; RESP 16; TEMP 36.7
--- NOTE | 2022-01-23 13:30 | NURSING ---
Son, Guilherme, calls today questioning if pt returned from the ER. Informed Guilherme pt returned to unit at approximately 2300 last night. Just taken to the bathroom per this nurse and another staff member. Briefly reviewed course of treatment while in the ER. Also questions if NIX[place] for spouse's was approved. Informed Guilherme NIXON was approved. Plan will be for family [place] pick [place] 09[place] Son is a physical therapist and his [id number] will be able to help transfer pt into the vehicle and will have a w/c for pt to use. Nursing communication and a note placed on the calendar at the desk.
--- NOTE | 2022-01-23 14:00 | NURSING ---
Sutures removed from scalp per dr order. Pt tolerated well. Incision well approximated and is healing. Steri strips not applied. No sxs infection noted. Yellow-colored ecchymosis in front of incision.
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
[2022-01-23] MEDS: Doxepin Hydrochloride 10 MG Capsule PO (19:51)
[2022-01-23] MEDS: Mirtazapine 15 MG Tablet PO (19:51)
[2022-01-23 19:55] VITALS: O2SAT 96
[2022-01-24] MEDS: Acetaminophen 500 MG Tablet 1000 MG PO ×3 (05:03→21:33)
[2022-01-24] MEDS: Methocarbamol 500 MG Tablet PO ×3 (05:04→21:33)
[2022-01-24] MEDS: Pantoprazole Sodium 20 MG Tablet PO (05:04)
[2022-01-24] MEDS: Iron Polysaccharide Complex 150 MG CAPSULE PO (05:04)
[2022-01-24] MEDS: Atorvastatin Calcium 20 MG Tablet PO (05:04)
[2022-01-24] MEDS: Senna/Docusate Sodium 1 Tablet 2 TABLET PO (05:04)
[2022-01-24] MEDS: Cholecalciferol (Vit D3) 125 MCG CAPSULE (5,000 UNITS) PO (05:04)
[2022-01-24] MEDS: Nystatin Powder 15gm Bottle 1 APPLIC TOPICAL ×2 (05:05→17:17)
[2022-01-24 06:41] LABS: International Normalized Ratio 1.8; Prothrombin Time (Protime)PT. 20.2 SECONDS (11.7-14.9)
[2022-01-24 07:15] LABS: Bedside Glucose 89 mg/dL (74-106)
[2022-01-24 08:02] VITALS: BP 142/58; PULSE 92
[2022-01-24] MEDS: Metoprolol(XL)Succ 25 MG Tablet PO (08:02)
[2022-01-24] MEDS: Glimepiride 1 MG Tablet PO (08:02)
[2022-01-24] MEDS: Ascorbic Acid 500 MG Tablet PO (08:02)
[2022-01-24 14:23] VITALS: BP 103/51; PULSE 69; RESP 16; TEMP 36.5; O2SAT 96
[2022-01-24] MEDS: Mirtazapine 15 MG Tablet PO (21:33)
[2022-01-24] MEDS: Doxepin Hydrochloride 10 MG Capsule PO (21:33)
[2022-01-25 06:51] LABS: Bedside Glucose 87 mg/dL (74-106)
[2022-01-25] MEDS: Acetaminophen 500 MG Tablet 1000 MG PO ×3 (06:59→20:02)
[2022-01-25] MEDS: Methocarbamol 500 MG Tablet PO ×3 (06:59→20:02)
[2022-01-25] MEDS: Pantoprazole Sodium 20 MG Tablet PO (06:59)
[2022-01-25] MEDS: Cholecalciferol (Vit D3) 125 MCG CAPSULE (5,000 UNITS) PO (07:00)
[2022-01-25] MEDS: Iron Polysaccharide Complex 150 MG CAPSULE PO (07:00)
[2022-01-25] MEDS: Atorvastatin Calcium 20 MG Tablet PO (07:00)
[2022-01-25] MEDS: Nystatin Powder 15gm Bottle 1 APPLIC TOPICAL ×2 (07:00→17:08)
[2022-01-25 08:41] VITALS: BP 115/55; PULSE 79
[2022-01-25] MEDS: Glimepiride 1 MG Tablet PO (08:41)
[2022-01-25] MEDS: Metoprolol(XL)Succ 25 MG Tablet PO (08:41)
[2022-01-25] MEDS: Ascorbic Acid 500 MG Tablet PO (08:48)
[2022-01-25 15:44] VITALS: BP 117/48; PULSE 80; RESP 16; TEMP 36.8; O2SAT 99
[2022-01-25] MEDS: Senna/Docusate Sodium 1 Tablet 2 TABLET PO (17:08)
[2022-01-25] MEDS: Doxepin Hydrochloride 10 MG Capsule PO (20:01)
[2022-01-25] MEDS: Mirtazapine 15 MG Tablet PO (20:03)
[2022-01-26] MEDS: Acetaminophen 500 MG Tablet 1000 MG PO ×3 (05:32→21:28)
[2022-01-26] MEDS: Senna/Docusate Sodium 1 Tablet 2 TABLET PO (05:32)
[2022-01-26] MEDS: Nystatin Powder 15gm Bottle 1 APPLIC TOPICAL ×2 (05:33→17:27)
[2022-01-26] MEDS: Pantoprazole Sodium 20 MG Tablet PO (05:33)
[2022-01-26] MEDS: Methocarbamol 500 MG Tablet PO ×3 (05:33→21:29)
[2022-01-26] MEDS: Alendronate Sodium 70 MG Tablet PO (05:33)
[2022-01-26] MEDS: Cholecalciferol (Vit D3) 125 MCG CAPSULE (5,000 UNITS) PO (05:33)
[2022-01-26] MEDS: Iron Polysaccharide Complex 150 MG CAPSULE PO (05:33)
[2022-01-26] MEDS: Atorvastatin Calcium 20 MG Tablet PO (05:33)
[2022-01-26 05:40] LABS: Absolute Lymphocyte Count 1.61 X10^3/uL (0.83-4.51); Absolute Neutrophil Count 4.4 X10^3/uL (2.0-7.7); Basophil# 0.07 X10^3/uL; Eosinophils% 4.3 % (0-5); Hematocrit 26.2 % (40-54); Hemoglobin 7.9 g/dL (13.0-16.5); Lymphocyte # 1.61 X10^3/ul (0.83-4.51); Lymphocyte % 23.3 % (19-41); Mean Corp Hgb Conc 30.2 g/dL (32-36); Mean Corpuscular Hgb 26.2 pg (27.0-32.0); Mean Corpuscular Volume 86.8 fL (80-94); Mean Platelet Vol. 8.9 fl (6.2-12.0); Monocyte# 0.48 X10^3/uL; Monocyte% 6.9 % (0-10); NRBC Flagged by Analyzer 0 % (0-5); Neutrophil # 4.41 X10^3/uL (2.7-7.7); Neutrophil % 63.9 % (47-70); Platelet Count 353 K/mm3 (150-450); RBC Distribution Width CV 15.6 % (11.6-14.6); RBC Distribution Width SD 49.4 fl (35.1-43.9); Red Blood Count 3.02 M/mm3 (4.6-6.2); White Blood Count 6.9 K/mm3 (4.4-11.0)
[2022-01-26 06:01] LABS: Anion Gap 7 (5-15); BUN 17 mg/dL (7-18); BUN/Creat Ratio 23.7 RATIO (10-20); Calcium,Total 7.7 mg/dL (8.5-10.1); Chloride 109 mmol/L (98-107); Creatinine, Serum 0.72 mg/dL (0.70-1.30); EST Glomerular Filtration Rate 113 mL/min (>60); Est Glom Filt Rate - Afr Amer 137 mL/min (>60); Estimated Creatinine Clearance 60.88 ml/min; Glucose 85 mg/dL (74-106); Sodium Level 138 mmol/L (136-145)
[2022-01-26 06:50] LABS: Bedside Glucose 89 mg/dL (74-106)
[2022-01-26 08:01] VITALS: BP 145/60; PULSE 81
[2022-01-26] MEDS: Metoprolol(XL)Succ 25 MG Tablet PO (08:01)
[2022-01-26] MEDS: Glimepiride 1 MG Tablet PO (08:01)
[2022-01-26] MEDS: Ascorbic Acid 500 MG Tablet PO (08:01)
[2022-01-26 09:46] VITALS: PULSE 64; RESP 16; O2SAT 95
[2022-01-26] MEDS: Tuberculin,Purif.prot.deriv. 50 TU/ML Vial 0.1 ML ID (11:16)
[2022-01-26 15:14] VITALS: BP 134/64; PULSE 58; RESP 18; TEMP 36.8; O2SAT 98
[2022-01-26] MEDS: Mirtazapine 15 MG Tablet PO (21:28)
[2022-01-26] MEDS: Doxepin Hcl 25 MG Capsule PO (21:42)
[2022-01-27] MEDS: oxyCODONE 5 MG Tablet PO ×2 (00:38→23:46)
[2022-01-27] MEDS: Menthol/Lanolin/Calamine/Znox 113 GM Tube 1 APPLIC TOPICAL ×2 (05:54→16:48)
[2022-01-27] MEDS: Cholecalciferol (Vit D3) 125 MCG CAPSULE (5,000 UNITS) PO (05:55)
[2022-01-27] MEDS: Acetaminophen 500 MG Tablet 1000 MG PO ×3 (05:55→22:27)
[2022-01-27] MEDS: Methocarbamol 500 MG Tablet PO ×3 (05:55→22:26)
[2022-01-27] MEDS: Pantoprazole Sodium 20 MG Tablet PO (05:55)
[2022-01-27] MEDS: Nystatin Powder 15gm Bottle 1 APPLIC TOPICAL ×2 (05:56→16:48)
[2022-01-27] MEDS: Iron Polysaccharide Complex 150 MG CAPSULE PO (05:56)
[2022-01-27 05:59] LABS: Hematocrit 27.7 % (40-54); Hemoglobin 8.4 g/dL (13.0-16.5)
[2022-01-27 06:09] LABS: International Normalized Ratio 1.8; Prothrombin Time (Protime)PT. 20.5 SECONDS (11.7-14.9)
[2022-01-27 06:50] LABS: Bedside Glucose 82 mg/dL (74-106)
[2022-01-27] MEDS: Glimepiride 1 MG Tablet PO (08:56)
[2022-01-27 08:58] VITALS: PULSE 87
[2022-01-27] MEDS: Metoprolol(XL)Succ 25 MG Tablet PO (08:58)
[2022-01-27] MEDS: Ascorbic Acid 500 MG Tablet PO (08:58)
[2022-01-27 08:59] VITALS: BP 120/62; PULSE 87; RESP 18
[2022-01-27 15:18] VITALS: BP 126/53; PULSE 88; RESP 18; TEMP 37.4; O2SAT 97
[2022-01-27] MEDS: Doxepin Hcl 25 MG Capsule PO (22:23)
[2022-01-27] MEDS: Atorvastatin Calcium 20 MG Tablet PO (22:25)
[2022-01-27] MEDS: Mirtazapine 15 MG Tablet PO (22:26)
[2022-01-28] MEDS: Menthol/Lanolin/Calamine/Znox 113 GM Tube 1 APPLIC TOPICAL ×2 (05:28→17:30)
[2022-01-28] MEDS: Acetaminophen 500 MG Tablet 1000 MG PO ×3 (05:28→21:42)
[2022-01-28] MEDS: Cholecalciferol (Vit D3) 125 MCG CAPSULE (5,000 UNITS) PO (05:29)
[2022-01-28] MEDS: Methocarbamol 500 MG Tablet PO ×3 (05:30→21:43)
[2022-01-28] MEDS: Iron Polysaccharide Complex 150 MG CAPSULE PO (05:30)
[2022-01-28] MEDS: Pantoprazole Sodium 20 MG Tablet PO (05:31)
[2022-01-28] MEDS: Nystatin Powder 15gm Bottle 1 APPLIC TOPICAL ×2 (05:31→17:30)
[2022-01-28 06:55] LABS: Bedside Glucose 95 mg/dL (74-106)
--- NOTE | 2022-01-28 08:34 | CASEMGMT ---
Addendum entered by Roxanna Wiley 01/29/22 08:40: [facility] SNF list provided to son via [facility]Port Guide Link, per son request. Original Note: Social Work Telephone call from patient son, Guilherme Ramesh. Guilherme reports to be returning phone call from social sciences chairRoxanna. Guilherme reports to believe that nature of phone call was to update Guilherme on plan of care meeting that was held last week. This social sciences chair updated Guilherme that insurance update is due on 01/29/2022 with no guarantee of continued stay approval. Guilherme reports to be familiar with insurance update process. Guilherme aware of 3 day notice of discontinuation of coverage by insurance if continued stay is denied. Guilherme reports to have visited patient last week and noted that patient was x2 assist for mobility. This social sciences chair reviewed physical therapy note from 01/26/2022 and noted that patient ambulated CGA of 145 feet. Guilherme reports to be aware of concern of patient returning to home alone and to also be concerned about patient returning to home alone, at current level. Guilherme reports that if patient is unable to return home at time of discharge to be open to penitentiary placement for patient and would prefer a facility in [facility]. This social sciences chair noting that patient appears to have been making progress since last Friday (when patient was x2 assist) and to see what insurance says when update is submitted. Team recommending for patient to continue with further care and treatment as patient appears to be making progress. This social sciences chair also stressing importance of Guilherme and patient having conversation about detention placement/plan B in the event that patient is not able to return to home/insurance does not provide more time. Guilherme confirms to be Health Care Power of Dental Intern for patient. This social sciences chair to provide patient with list of [facility] jail facilities and to follow up with patient on further plan B conversation. Guilherme voiced understanding to plan and also plans to speak with patient daughter and patient on working out a safe discharge plan for patient. Social Work to continue to follow. MYRIAM Escalona
--- NOTE | 2022-01-28 09:48 | NURSING ---
Astronomy Professor Note; MDS and CAA for 01/25/2022 Complete
[2022-01-28 09:54] VITALS: BP 135/59
[2022-01-28 09:55] VITALS: BP 135/59; PULSE 96
[2022-01-28] MEDS: Glimepiride 1 MG Tablet PO (09:55)
[2022-01-28] MEDS: Metoprolol(XL)Succ 25 MG Tablet PO (09:55)
[2022-01-28] MEDS: Ascorbic Acid 500 MG Tablet PO (09:55)
[2022-01-28 13:42] VITALS: BP 132/64; PULSE 81; RESP 18; TEMP 36.9; O2SAT 98
[2022-01-28] MEDS: Atorvastatin Calcium 20 MG Tablet PO (21:43)
[2022-01-28] MEDS: Mirtazapine 15 MG Tablet PO (21:43)
[2022-01-28] MEDS: Doxepin Hcl 25 MG Capsule PO (21:43)
[2022-01-29] MEDS: oxyCODONE 5 MG Tablet PO (02:47)
[2022-01-29] MEDS: Cholecalciferol (Vit D3) 125 MCG CAPSULE (5,000 UNITS) PO (06:16)
[2022-01-29] MEDS: Pantoprazole Sodium 20 MG Tablet PO (06:16)
[2022-01-29] MEDS: Iron Polysaccharide Complex 150 MG CAPSULE PO (06:17)
[2022-01-29] MEDS: Acetaminophen 500 MG Tablet 1000 MG PO ×3 (06:17→20:35)
[2022-01-29] MEDS: Methocarbamol 500 MG Tablet PO ×3 (06:18→20:35)
[2022-01-29] MEDS: Menthol/Lanolin/Calamine/Znox 113 GM Tube 1 APPLIC TOPICAL ×2 (06:26→16:59)
[2022-01-29] MEDS: Nystatin Powder 15gm Bottle 1 APPLIC TOPICAL ×2 (06:26→16:59)
[2022-01-29 08:23] VITALS: BP 140/72; PULSE 87
[2022-01-29] MEDS: Metoprolol(XL)Succ 25 MG Tablet PO (08:23)
[2022-01-29] MEDS: Glimepiride 1 MG Tablet PO (08:23)
[2022-01-29] MEDS: Ascorbic Acid 500 MG Tablet PO (08:23)
[2022-01-29 12:14] LABS: Bedside Glucose 82 mg/dL (74-106)
[2022-01-29 13:18] VITALS: BP 121/64; PULSE 90; RESP 16; TEMP 36.9; O2SAT 100
--- NOTE | 2022-01-29 15:27 | CASEMGMT ---
Social Work Insurance issued LCD 01/31, DC 02/01. SW left message with son informing him of DC date. SW spoke with pt and discussed DC plans. Explained IDT recommending additional help in the home so pt is not alone. Offered nonskilled HHC resources or SNF stay. Pt denies and would like to try it at home. SW agreed and will coordinate skilled HHC. Provided pt with list of skilled HHC agencies with quality and resource data printed from [employer]Port Guide. Pt to select preferences and SW to refer. No DME needs. Son to transport. Plan: DC home alone 02/01, HHC PT/OT/SW Roxanna Wiley, SUPERINTENDENT [employer] SERVICES POOL MANAGER
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
[2022-01-29 20:25] VITALS: PULSE 84; RESP 16; O2SAT 97
[2022-01-29] MEDS: Mirtazapine 15 MG Tablet PO (20:35)
[2022-01-29] MEDS: Atorvastatin Calcium 20 MG Tablet PO (20:35)
[2022-01-29] MEDS: Doxepin Hcl 25 MG Capsule PO (20:35)
[2022-01-30] MEDS: Iron Polysaccharide Complex 150 MG CAPSULE PO (06:21)
[2022-01-30] MEDS: Cholecalciferol (Vit D3) 125 MCG CAPSULE (5,000 UNITS) PO (06:21)
[2022-01-30] MEDS: Acetaminophen 500 MG Tablet 1000 MG PO ×3 (06:21→22:19)
[2022-01-30] MEDS: Pantoprazole Sodium 20 MG Tablet PO (06:21)
[2022-01-30] MEDS: Nystatin Powder 15gm Bottle 1 APPLIC TOPICAL ×2 (06:21→16:46)
[2022-01-30] MEDS: Methocarbamol 500 MG Tablet PO ×3 (06:22→22:19)
[2022-01-30] MEDS: Menthol/Lanolin/Calamine/Znox 113 GM Tube 1 APPLIC TOPICAL ×2 (06:25→16:46)
[2022-01-30 06:41] LABS: Bedside Glucose 85 mg/dL (74-106)
[2022-01-30 07:45] VITALS: BP 144/73; PULSE 75
[2022-01-30] MEDS: Metoprolol(XL)Succ 25 MG Tablet PO (07:45)
[2022-01-30] MEDS: Ascorbic Acid 500 MG Tablet PO (07:46)
[2022-01-30] MEDS: Glimepiride 1 MG Tablet PO (07:46)
--- NOTE | 2022-01-30 13:29 | MDS.RN ---
Information for the mds was obtained from review of the clinical record, interview of resident, staff, and direct observation of resident's care.
[2022-01-30 16:00] VITALS: BP 151/73; PULSE 98; RESP 16; TEMP 36.4; O2SAT 95
--- NOTE | 2022-01-30 16:14 | CASEMGMT ---
Addendum entered by Roxanna Wiley 01/30/22 16:39: [facility] is unable to accept pt. Phoned referral to [facility]. Original Note: Social Work Met with patient and son in room. Discussed [facility] services and agencies. Son works as PT for [employer], but they do not accept pt's insurance. Son requesting [facility] or [facility] - PT/OT/SN/[place]/SW. SW agreed. Referral made via [facility] to [facility]. Roxanna Wiley, SUPERVISOR FURNACE ROOM BALLOON SELLER
--- NOTE | 2022-01-30 16:36 | NURSING ---
Return from [facility] at this time.
[2022-01-30] MEDS: Mirtazapine 15 MG Tablet PO (22:19)
[2022-01-30] MEDS: Doxepin Hcl 25 MG Capsule PO (22:19)
[2022-01-30] MEDS: Atorvastatin Calcium 20 MG Tablet PO (22:19)
[2022-01-31 06:13] LABS: International Normalized Ratio 2.2; Prothrombin Time (Protime)PT. 23.7 SECONDS (11.7-14.9)
[2022-01-31] MEDS: Pantoprazole Sodium 20 MG Tablet PO (06:18)
[2022-01-31] MEDS: Methocarbamol 500 MG Tablet PO ×3 (06:18→21:48)
[2022-01-31] MEDS: Iron Polysaccharide Complex 150 MG CAPSULE PO (06:18)
[2022-01-31] MEDS: Cholecalciferol (Vit D3) 125 MCG CAPSULE (5,000 UNITS) PO (06:18)
[2022-01-31] MEDS: Senna/Docusate Sodium 1 Tablet 2 TABLET PO (06:21)
[2022-01-31] MEDS: Menthol/Lanolin/Calamine/Znox 113 GM Tube 1 APPLIC TOPICAL ×2 (06:22→17:19)
[2022-01-31] MEDS: Polyethylene Glycol 3350 17 GM PACKET PO (06:22)
[2022-01-31] MEDS: Acetaminophen 500 MG Tablet 1000 MG PO ×3 (06:22→21:49)
[2022-01-31] MEDS: Nystatin Powder 15gm Bottle 1 APPLIC TOPICAL ×2 (06:23→17:19)
[2022-01-31 06:45] LABS: Bedside Glucose 81 mg/dL (74-106)
[2022-01-31 08:15] VITALS: BP 130/70; PULSE 84
[2022-01-31] MEDS: Ascorbic Acid 500 MG Tablet PO (08:15)
[2022-01-31] MEDS: Glimepiride 1 MG Tablet PO (08:15)
[2022-01-31] MEDS: Metoprolol(XL)Succ 25 MG Tablet PO (08:15)
--- NOTE | 2022-01-31 12:14 | CASEMGMT ---
Social Work BIMS () and PHQ-9 (06/27) completed for MDS assessment. Roxanna Wiley MSW OPTICAL MECHANIC APPRENTICE
[2022-01-31 13:59] VITALS: BP 114/62; PULSE 89; RESP 14; TEMP 36.4; O2SAT 98
[2022-01-31] MEDS: Atorvastatin Calcium 20 MG Tablet PO (21:49)
[2022-01-31] MEDS: Doxepin Hcl 25 MG Capsule PO (21:49)
[2022-01-31] MEDS: Mirtazapine 15 MG Tablet PO (21:50)
[2022-01-31 22:00] VITALS: PULSE 75; RESP 18; O2SAT 98
[2022-02-01] MEDS: Iron Polysaccharide Complex 150 MG CAPSULE PO (05:03)
[2022-02-01] MEDS: Menthol/Lanolin/Calamine/Znox 113 GM Tube 1 APPLIC TOPICAL (05:03)
[2022-02-01] MEDS: Nystatin Powder 15gm Bottle 1 APPLIC TOPICAL (05:04)
[2022-02-01] MEDS: Pantoprazole Sodium 20 MG Tablet PO (05:04)
[2022-02-01] MEDS: Cholecalciferol (Vit D3) 125 MCG CAPSULE (5,000 UNITS) PO (05:04)
[2022-02-01] MEDS: Acetaminophen 500 MG Tablet 1000 MG PO ×2 (05:04→13:23)
[2022-02-01] MEDS: Methocarbamol 500 MG Tablet PO ×2 (05:05→13:23)
[2022-02-01 06:41] LABS: Bedside Glucose 85 mg/dL (74-106)
[2022-02-01 08:37] VITALS: BP 132/71; PULSE 97
[2022-02-01] MEDS: Ascorbic Acid 500 MG Tablet PO (08:37)
[2022-02-01] MEDS: Metoprolol(XL)Succ 25 MG Tablet PO (08:37)
[2022-02-01] MEDS: Glimepiride 1 MG Tablet PO (08:37)
[2022-02-01 10:00] VITALS: PULSE 97; RESP 18; O2SAT 96
--- NOTE | 2022-02-01 10:02 | NURSING ---
Maria Dolores for Dr. Olguin's office to return call to schedule f/u appt.
== END 2022-02-01 14:45 | disposition home health service (06) | DRG 560 ==
PROVIDERS: Admitting Provider Family Medicine Geriatric Medicine; PCP Family Medicine; Visit Provider Family Medicine Geriatric Medicine
DX: S32.021D Stable burst fracture of second lumbar vertebra, subsequent encounter for fracture with routine healing (principal); I50.20 Unspecified systolic (congestive) heart failure; I11.0 Hypertensive heart disease with heart failure; E11.9 Type 2 diabetes mellitus without complications; I48.0 Paroxysmal atrial fibrillation; I25.10 Atherosclerotic heart disease of native coronary artery without angina pectoris; E55.9 Vitamin D deficiency, unspecified; E78.5 Hyperlipidemia, unspecified; K21.9 Gastro-esophageal reflux disease without esophagitis; S01.01XD Laceration without foreign body of scalp, subsequent encounter; Z79.84 Long term (current) use of oral hypoglycemic drugs; Z87.891 Personal history of nicotine dependence; V99.XXXD Unspecified transport accident, subsequent encounter; Z79.899 Other long term (current) drug therapy; Z79.01 Long term (current) use of anticoagulants; F32.A Depression, unspecified; Z95.3 Presence of xenogenic heart valve
CPT/HCPCS: 36415; 80048; 82962; 85014; 85018; 85025; 85610; 87426; 87811; 92507; 92523; 97110; 97116; 97162; 97165; 97530; 97535; 97802

== ENCOUNTER 2022-01-22 18:10 | Emergency (ER) | payer MEDICARE, SELFPAY ==
[2022-01-22] VITALS (10 sets, daily range): BP systolic 114–152; BP diastolic 68–113; PULSE 101–133; RESP 16–34; TEMP 36.6–36.7; O2SAT 93–99; BMI 27.3
--- NOTE | 2022-01-22 18:30 | EKG12_ITS ---
Test Reason : DYSRHYTHMIA Blood Pressure : / mmHG Vent. Rate : 142 BPM Atrial Rate : 340 BPM P-R Int : 000 ms QRS Dur : 066 ms QT Int : 306 ms P-R-T Axes : 000 -12 -12 degrees QTc Int : 470 ms Atrial fibrillation Anteroseptal infarct , age undetermined Lateral injury pattern Abnormal ECG Confirmed by BOLA QUAN, CHRIS ([id number]), editor farm journal CJ RODRÍGUEZ ([id number]) on 01/23/2022 9:14:00 AM Referred By: RENETTA Confirmed By:CHRIS PLAZA MD
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
[2022-01-22 18:40] LABS: Bacteria 0 SEEN /hpf (None Seen); Mucous, Urine 0 SEEN /hpf (<or=2+); Red Blood Cells-Urine 0 SEEN /hpf (0-5); Squamous Epithelial Cells - UA 0 SEEN /hpf (0-5); White Blood Cells 0 SEEN /hpf (0-5)
[2022-01-22 18:42] LABS: Absolute Lymphocyte Count 2.88 X10^3/uL (0.83-4.51); Absolute Neutrophil Count 6.9 X10^3/uL (2.0-7.7); Basophil# 0.07 X10^3/uL; Basophil% 0.6 % (0-1); Eosinophil# 0.21 X10^3/uL; Eosinophils% 1.9 % (0-5); Hemoglobin 9.5 g/dL (13.0-16.5); Lymphocyte # 2.88 X10^3/ul (0.83-4.51); Lymphocyte % 25.6 % (19-41); Mean Corp Hgb Conc 32.8 g/dL (32-36); Mean Corpuscular Hgb 27.5 pg (27.0-32.0); Mean Corpuscular Volume 84.1 fL (80-94); Mean Platelet Vol. 9.2 fl (6.2-12.0); Monocyte# 1.05 X10^3/uL; Monocyte% 9.3 % (0-10); NRBC Flagged by Analyzer 0 % (0-5); Neutrophil # 6.89 X10^3/uL (2.7-7.7); Neutrophil % 61.2 % (47-70); Platelet Count 391 K/mm3 (150-450); RBC Distribution Width CV 15.4 % (11.6-14.6); RBC Distribution Width SD 46.8 fl (35.1-43.9); Red Blood Count 3.45 M/mm3 (4.6-6.2); White Blood Count 11.3 K/mm3 (4.4-11.0)
--- NOTE | 2022-01-22 18:50 | RAD_ITS ---
STUDY: X-RAY CHEST REASON FOR EXAM: Male, 76 years old. Mental status change TECHNIQUE: XR Chest 1 View COMPARISON: 10.25.21 FINDINGS: There is atherosclerotic calcification of the aortic arch with tortuosity. There are diffuse degenerative changes of the visualized thoracic spine. There is degenerative osteoarthritis of the bilateral shoulders. There is no demonstrated pleural abnormality. There are multiple median sternotomy wires. There is an atrial appendage device noted. Prosthetic heart valve. Normal size heart. Normal mediastinum and evita. Normal visualized pulmonary arteries. There is no demonstrated abnormality of the visualized soft tissue structures of the upper abdomen. RAD/Chest 1 View (Portable) IMPRESSION: There are no acute findings. Electronically Signed: Jd Mcdaniel MD at 19:26 EST ,
[2022-01-22 18:59] LABS: International Normalized Ratio 1.8; Prothrombin Time (Protime)PT. 20.9 SECONDS (11.7-14.9)
[2022-01-22 19:04] LABS: ALB/GLOB Ratio 0.6 RATIO (0.9-2.4); AST(SGOT) 46 U/L (15-37); Alanine Aminotransfer ALT/SGPT 40 U/L (16-61); Albumin, Serum 2.7 g/dL (3.2-5.0); Alkaline Phosphatase 124 U/L (45-117); Anion Gap 9 (5-15); BUN 35 mg/dL (7-18); BUN/Creat Ratio 27.6 RATIO (10-20); Calcium,Total 8.8 mg/dL (8.5-10.1); Chloride 100 mmol/L (98-107); Creatinine, Serum 1.27 mg/dL (0.70-1.30); EST Glomerular Filtration Rate 58 mL/min (>60); Est Glom Filt Rate - Afr Amer 71 mL/min (>60); Estimated Creatinine Clearance 47.94 ml/min; Globulin 4.6 g/dL (2.2-4.2); Glucose 86 mg/dL (74-106); Potassium 4.8 mmol/L (3.5-5.1); Protein, Total 7.3 g/dL (6.4-8.2); Sodium Level 133 mmol/L (136-145)
[2022-01-22 19:04] LABS: Color, Urine Yellow (Yellow); Glucose, Dipstick Normal (Normal); Ketone-Dipstick Negative (Negative); Leukocyte Esterase-Dipstick 25 /ul (Negative); Nitrite-Dipstick Negative (Negative); Occult Blood-Urine Negative /ul (Negative); Protein-Dipstick Negative (Negative); Urine Bilirubin Dipstick Negative (Negative); Urine Clarity Clear (Clear); Urine Urobilinogen 1 mg/dl (Normal)
[2022-01-22] MEDS: Metoprolol Tartrate 5 MG/5 ML Vial IV (21:48)
--- NOTE | 2022-01-22 22:40 | ED.RN ---
THIS RN CALLED REPORT TO [facility] AT [phone]. REPORT GIVEN TO LICHA SONG.
== END 2022-01-22 22:39 | disposition home or self-care (01) ==
PROVIDERS: Emergency Provider Emergency Medicine; PCP Family Medicine; Visit Provider Emergency Medicine
DX: R41.82 Altered mental status, unspecified (principal); I48.91 Unspecified atrial fibrillation; E66.9 Obesity, unspecified; I25.10 Atherosclerotic heart disease of native coronary artery without angina pectoris; Z95.1 Presence of aortocoronary bypass graft; Z79.01 Long term (current) use of anticoagulants; Z87.891 Personal history of nicotine dependence
CPT/HCPCS: 70450; 71045; 80053; 81001; 85025; 85610; 93005; 96361; 96374; 99285; J7040; P9612; A4216

== ENCOUNTER → 2022-06-14 | Outpatient (CLI) | payer MEDICARE, SELFPAY ==
[2022-06-14 16:36] LABS: Absolute Lymphocyte Count 1.31 X10^3/uL (0.83-4.51); Absolute Neutrophil Count 3.8 X10^3/uL (2.0-7.7); Basophil# 0.03 X10^3/uL; Basophil% 0.5 % (0-1); Eosinophil# 0.07 X10^3/uL; Eosinophils% 1.2 % (0-5); Hematocrit 37.2 % (40-54); Hemoglobin 10.9 g/dL (13.0-16.5); Lymphocyte # 1.31 X10^3/ul (0.83-4.51); Lymphocyte % 22.8 % (19-41); Mean Corp Hgb Conc 29.3 g/dL (32-36); Mean Corpuscular Hgb 24.5 pg (27.0-32.0); Mean Corpuscular Volume 83.8 fL (80-94); Monocyte# 0.48 X10^3/uL; Monocyte% 8.4 % (0-10); NRBC Flagged by Analyzer 0 % (0-5); Neutrophil # 3.84 X10^3/uL (2.7-7.7); Neutrophil % 66.9 % (47-70); Platelet Count 210 K/mm3 (150-450); RBC Distribution Width CV 16.1 % (11.6-14.6); RBC Distribution Width SD 48.8 fl (35.1-43.9); Red Blood Count 4.44 M/mm3 (4.6-6.2); White Blood Count 5.7 K/mm3 (4.4-11.0)
[2022-06-14 16:43] LABS: International Normalized Ratio 1.3; Prothrombin Time (Protime)PT. 15.9 SECONDS (11.7-14.9)
[2022-06-14 17:29] LABS: ALB/GLOB Ratio 0.8 RATIO (0.9-2.4); AST(SGOT) 25 U/L (15-37); Alanine Aminotransfer ALT/SGPT 20 U/L (16-61); Alkaline Phosphatase 148 U/L (45-117); Anion Gap 5 (5-15); BUN 16 mg/dL (7-18); BUN/Creat Ratio 21.7 RATIO (10-20); Calcium,Total 8.3 mg/dL (8.5-10.1); Chloride 106 mmol/L (98-107); Creatinine, Serum 0.74 mg/dL (0.70-1.30); EST Glomerular Filtration Rate 109 mL/min (>60); Est Glom Filt Rate - Afr Amer 132 mL/min (>60); Globulin 3.8 g/dL (2.2-4.2); Glucose 65 mg/dL (74-106); Potassium 3.7 mmol/L (3.5-5.1); Protein, Total 6.8 g/dL (6.4-8.2); Sodium Level 138 mmol/L (136-145)
== END | disposition home or self-care (01) ==
LOC: LAB 15:39
PROVIDERS: Referring Provider Physician Assistant Medical; Visit Provider Physician Assistant Medical
DX: I42.9 Cardiomyopathy, unspecified (principal); I48.20 Chronic atrial fibrillation, unspecified; R00.1 Bradycardia, unspecified; I10 Essential (primary) hypertension; E78.5 Hyperlipidemia, unspecified; Z95.1 Presence of aortocoronary bypass graft; Z98.890 Other specified postprocedural states; Z95.3 Presence of xenogenic heart valve
CPT/HCPCS: 36415; 80053; 83880; 84443; 85025; 85610

== ENCOUNTER → 2022-06-19 | Outpatient (CLI) | payer MEDICARE, SELFPAY | END | disposition home or self-care (01) | LOC: PSN 09:03 | PROVIDERS: PCP Family Medicine; Visit Provider Physician Assistant Medical | DX: R00.1 Bradycardia, unspecified (principal); I42.9 Cardiomyopathy, unspecified; I48.20 Chronic atrial fibrillation, unspecified; I10 Essential (primary) hypertension; E78.5 Hyperlipidemia, unspecified; Z95.1 Presence of aortocoronary bypass graft; Z98.890 Other specified postprocedural states; Z95.3 Presence of xenogenic heart valve | CPT/HCPCS: 93225; 93226 ==

== ENCOUNTER 2022-06-22 11:22 | Emergency (ER) | payer MEDICARE, SELFPAY ==
[2022-06-22 11:22] VITALS: BP 155/79; PULSE 69; RESP 16; TEMP 36.7; O2SAT 96
[2022-06-22 11:32] VITALS: BMI 25.7
--- NOTE | 2022-06-22 11:52 | EDS_ITS ---
HPI <YESENIA Barriga - Last Filed: 06/22/22 14:24> History of Present Illness Chief Complaint: Cellulitis Narrative Narrative: Presenting today with concerns for cellulitis in his lower legs bilaterally. With the past several weeks patient has had increased edema to his lower legs and has been started on 40 mg twice daily Lasix around 1 week ago which has been helping some. Over the past week, the ventral portion patient's lower legs bilaterally have become more red. He has developed a blister on the top of his feet bilaterally which have opened and he has been treating them with warm antibiotic ointment and keeping them dry and covered.. There has been no purulent discharge from these wounds. He denies any fever, chills, abdominal pain, nausea, vomiting. PMH includes CHF, diabetes mellitus, hyperlipidemia, atrial fibrillation on Coumadin. PFSH <YESENIA Barriga - Last Filed: 06/22/22 14:24> REPLACED BY [facility] Medical History Atherosclerotic heart disease of [place] coronary artery without angina pectoris Caregiver stress Depression Diabetes mellitus, type II Essential hypertension GERD (gastroesophageal reflux disease) Hydronephrosis Hyperlipidemia shelter current use of anticoagulant Lower extremity edema New onset atrial fibrillation Non-rheumatic mitral regurgitation Non-rheumatic mitral valve stenosis Non-rheumatic tricuspid valve insufficiency Nonrheumatic aortic (valve) stenosis Osteoporosis Paroxysmal atrial fibrillation Ulnar neuropathy Vitamin D deficiency Home Medications atorvastatin 20 mg tablet 20 mg PO DAILY CHOLESTEROL 04/05/19 [History Last Taken Unknown] cholecalciferol (vitamin D3) 125 mcg (5,000 unit) disintegrating tablet 5,000 unit PO DAILY BONES 04/05/19 [History Last Taken Unknown] lutein 20 mg capsule 20 mg PO DAILY SUPPLEMENT 05/21/21 [History Last Taken Unknown] glimepiride 1 mg tablet 1 mg PO DAILY DIABETES 10/09/21 [History Last Taken Unknown] omeprazole 20 mg capsule,delayed release 20 mg PO DAILY ACID REFLUX 10/09/21 [History Last Taken Unknown] acetaminophen 500 mg tablet 1,000 mg PO TID #0 tabs 01/29/22 [Rx Last Taken Unknown] alendronate 70 mg tablet 70 mg PO Sa@0600 30 days #5 tabs 01/29/22 [Rx Last Taken Unknown] warfarin 3 mg tablet (Jantoven) 3 mg PO DINNER 30 days #30 tabs 01/29/22 [Rx Last Taken Unknown] amlodipine 5 mg tablet 5 mg PO DAILY 06/14/22 [History Last Taken Unknown] furosemide 40 mg tablet 80 mg PO BID #90 tabs 06/17/22 [Rx Last Taken Unknown] potassium chloride 10 mEq capsule,extended release 20 meq PO DAILY #180 caps 06/17/22 [Rx Last Taken Unknown] Allergy/AdvReac Type Severity Reaction Status Date / Time No Known Allergies Allergy Verified 06/22/22 11:32 Family History Mother , when patient was age 14, metastatic breast cancer Breast cancer Father , age 93 , unknown cause No problems noted. Surgical History abdominal incisional hernia repair (2011) History of aortic valve replacement with bioprosthetic valve (~07/27/21) History of arthroplasty of right ankle History of coronary artery bypass surgery (~07/27/21) History of mitral valve repair (~07/27/21) History of right and left heart catheterization (LHC) (~06/05/21) History of total left hip arthroplasty History of ureter repair (2010) Social History household members: none Smoking Status: Former smoker how long ago did patient quit smokin years ago alcohol intake: current alcohol intake frequency: holidays/special occasions only substance use type: does not use caffeine: Yes Type: coffee Number of servings: 4 ROS <YESENIA Barriga - Last Filed: 06/22/22 14:24> ROS ED Constitutional Constitutional ED: Denies chills, fever(s) or sweats Cardiovascular Cardiovascular: Denies chest pain or palpitations Respiratory/Chest Respiratory/Chest: Denies cough or dyspnea Gastrointestinal Gastrointestinal: Denies abdominal pain, nausea or vomiting Musculoskeletal Musculoskeletal: Denies arthralgias or myalgias Integumentary Reports wounds; Denies abscess or rash Neurologic Neurologic: Denies weakness Psychiatric Psychiatric: Denies anxiety or depression EXAM <YESENIA Barriga - Last Filed: 06/22/22 14:24> Physical Exam Const Vital Signs: 06/22/22 11:22 06/22/22 13:15 Temperature 98.1 F 97.7 F L Temperature Source Temporal Pulse Rate 69 52 L Respiratory Rate 16 18 Blood Pressure 155/79 H 165/86 H Blood Pressure Mean 104 Pulse Ox 96 97 Oxygen Delivery Method Room Air Positive well nourished, well developed and no apparent distress General Appearance ED: well developed HEENT Reports normocephalic and head/scalp atraumatic Mouth ED: Yes moist mucous membranes normal Eyes PERRL and EOMs intact bilaterally Neck full ROM and supple Chest Wall inspection of chest normal Resp normal respiratory effort and clear to auscultation bilaterally Cardio regular rate and regular rhythm GI soft to palpation, non-tender, non-distended and no masses Back/Spine normal ROM and normal to inspection Extremity normal to inspection and full ROM Extremity Narrative: Patient does have 2+ pitting edema to his lower legs bilaterally. There is equal erythema to the ventral portion of the patient's legs bilaterally without any erythema to the dorsal portion of his lower legs bilaterally. There are two quarter sized wounds on the dorsum of patient's feet bilaterally. They are without any purulent discharge. There is no lymphatic streaking. General Extremety ED: Yes edema General Extremity: edema Neuro oriented x3, CN's II-XII intact bilaterally, moves all extremities, no focal motor deficits and no sensory deficits noted Sensorium / Orientation: awake and alert Psych mental status grossly normal and thought process normal Skin Skin Narrative: See above. <Dr. Guilherme Alford MD - Last Filed: 06/22/22 12:56> Physical Exam Const Vital Signs: 06/22/22 11:22 06/22/22 13:15 Temperature 98.1 F 97.7 F L Temperature Source Temporal Pulse Rate 69 52 L Respiratory Rate 16 18 Blood Pressure 155/79 H 165/86 H Blood Pressure Mean 104 Pulse Ox 96 97 Oxygen Delivery Method Room Air MDM <YESENIA Barriga - Last Filed: 06/22/22 14:24> MDM MDM Narrative Medical decision making narrative: Patient presenting today with his son due to concerns for cellulitis on his legs bilaterally. Patient does have 2+ pitting edema to both lower extremities with mild erythema to the ventral aspect of his lower extremities bilaterally. There is no erythema to the posterior aspect of patient's lower extremities. This does not look cellulitic, this looks more like chronic venous stasis changes. However, labs will be obtained to rule out leukocytosis and patient's WBC is 5.7. Patient had a CMP performed earlier today. Patient asked if he could have his INR checked, this is 2.5 today. Patient does have two quarter sized wounds to the dorsum of his feet bilaterally that have no increased erythema or purulent discharge to them. Patient is treating these with antibacterial ointments and keeping them clean and dry with a bandage. Patient will be having a home health team start to see him on Friday. I have encouraged patient to use compression socks, keep his feet elevated when he can, and to remain compliant with Lasix. He will be discharged home in stable condition and patient and son are comfortable with plan. I have personally performed a face to face assessment of the patient and have reviewed the KAEL Note. I performed a substantive portion of the visit including all aspects of the following. My colón findings include: History is evaluated this 68-year-old male with our physician funeral home assistant. Patient has longstanding history underlying cardiac disease, CABG, mitral valve repair and aortic repair. Has A-fib. He is on Coumadin. Basically he was not taking his meds last 2 months. His family is taking control that. He has developed swelling in his lower extremities. No fever or chills. Exam is [well-appearing 76-year-old male. Vital signs are stable. He is afebrile. His pulse ox is 96% on room air. No distress. Lungs clear. Heart regular rhythm rate about 70. Abdomen soft nontender. Moving all 4 extremities. 1-2+ pitting edema both lower extremities. Minimal redness. Appears to be more from venous stasis. No cellulitis. Nontender to the touch. Able to wiggle his toes. Normal strength. There is wounds on his feet again that is not infected either. There is no inguinal lymphadenopathy. Patient is awake and alert.] Medical Decision Making [screening labs. This appears to be from peripheral edema and CHF not from acute infection or cellulitis.] Other additions or changes: [None] Lab Data Labs: Laboratory Results - last 24 hr 06/22/22 06/22/22 12:22 12:22 WBC 5.7 RBC 4.47 L Hgb 11.1 L Hct 37.5 L MCV 83.9 MCH 24.8 L MCHC 29.6 L RDW Std Deviation 49.9 H RDW Coeff of Elayne 16.3 H Plt Count 183 MPV 9.5 Immature Gran % (Auto) 0.400 Neut % (Auto) 75.6 H Lymph % (Auto) 14.1 L Emmet % (Auto) 8.5 Eos % (Auto) 0.5 Baso % (Auto) 0.9 Absolute Neuts (auto) 4.3 Absolute Lymphs (auto) 0.80 L Nucleated RBC % 0 PT 26.7 H INR 2.5 <Dr. Guilherme Alford MD - Last Filed: 06/22/22 12:56> MDM MDM Narrative Medical decision making narrative: I have personally performed a face to face assessment of the patient and have reviewed the KAEL Note. I performed a substantive portion of the visit including all aspects of the following. My colón findings include: History is evaluated this 68-year-old male with our physician funeral home assistant. Patient has longstanding history underlying cardiac disease, CABG, mitral valve repair and aortic repair. Has A-fib. He is on Coumadin. Basically he was not taking his meds last 2 months. His family is taking control that. He has developed swelling in his lower extremities. No fever or chills. Exam is [well-appearing 76-year-old male. Vital signs are stable. He is afebrile. His pulse ox is 96% on room air. No distress. Lungs clear. Heart regular rhythm rate about 70. Abdomen soft nontender. Moving all 4 extremities. 1-2+ pitting edema both lower extremities. Minimal redness. Appears to be more from venous stasis. No cellulitis. Nontender to the touch. Able to wiggle his toes. Normal strength. There is wounds on his feet again that is not infected either. There is no inguinal lymphadenopathy. Patient is awake and alert.] Medical Decision Making [screening labs. This appears to be from peripheral edema and CHF not from acute infection or cellulitis.] Other additions or changes: [None] History & Record Review Discussion w/independent historian: Patient and Family Lab Data Attestation: I reviewed the patient's lab results. Lab results narrative: CBC is unremarkable white count of 5.7. H&H 11.1 and 37.5. He has a baseline chronic anemia. Platelets 183. Patient is on Coumadin his INR is 2.5. Chemistries done earlier today from . However outpatient lab shows no acute abnormality. Normal BUN and creatinine. Labs: Laboratory Results - last 24 hr 06/22/22 06/22/22 12:22 12:22 WBC 5.7 RBC 4.47 L Hgb 11.1 L Hct 37.5 L MCV 83.9 MCH 24.8 L MCHC 29.6 L RDW Std Deviation 49.9 H RDW Coeff of Elayne 16.3 H Plt Count 183 MPV 9.5 Immature Gran % (Auto) 0.400 Neut % (Auto) 75.6 H Lymph % (Auto) 14.1 L Emmet % (Auto) 8.5 Eos % (Auto) 0.5 Baso % (Auto) 0.9 Absolute Neuts (auto) 4.3 Absolute Lymphs (auto) 0.80 L Nucleated RBC % 0 PT 26.7 H INR 2.5 Discharge Plan Triage Chief Complaint: Cellulitis ED Midlevel Provider: Farrah Chaudhry ED Provider: Guilherme Alford Dx/Rx/DC Orders Clinical Impression: Wound of foot, Edema of both lower extremities Instructions: ED Peripheral Edema, Bilateral Prescriptions: No Action atorvastatin 20 mg tablet 20 mg PO DAILY cholecalciferol (vitamin D3) 5,000 unit tablet,disintegrating 5,000 unit PO DAILY lutein 20 mg capsule 20 mg PO DAILY Rx Instructions: give with meal/snack glimepiride 1 mg tablet 1 mg PO DAILY omeprazole 20 mg capsule,delayed release(DR/EC) 20 mg PO DAILY amlodipine 5 mg tablet 5 mg PO DAILY furosemide 40 mg tablet 80 mg PO BID Qty: 90 3RF Rx Instructions: for 5 days starting 06/17/22 potassium chloride 10 mEq capsule, extended release 20 meq PO DAILY Qty: 180 3RF acetaminophen 500 mg Tablet 1,000 mg PO TID Qty: 0 0RF alendronate 70 mg Tablet 70 mg PO Sa@0600 30 Days Qty: 5 0RF warfarin [Jantoven] 3 mg Tablet 3 mg PO DINNER 30 Days Qty: 30 0RF Primary Care Provider: Jenelle Oconnell Referrals: Jenelle Oconnell MD [Primary Care Provider] - 3-5 Days Activity Restrictions/Additional Instructions: Elevate your legs whenever you can, wear compression stockings, and follow-up with your PCP. Disposition Disposition: Home, Self Care Discharge Date/Time: 06/22/22 13:17
[2022-06-22 12:29] LABS: Absolute Neutrophil Count 4.3 X10^3/uL (2.0-7.7); Basophil# 0.05 X10^3/uL; Basophil% 0.9 % (0-1); Eosinophil# 0.03 X10^3/uL; Eosinophils% 0.5 % (0-5); Hematocrit 37.5 % (40-54); Hemoglobin 11.1 g/dL (13.0-16.5); Lymphocyte % 14.1 % (19-41); Mean Corp Hgb Conc 29.6 g/dL (32-36); Mean Corpuscular Hgb 24.8 pg (27.0-32.0); Mean Corpuscular Volume 83.9 fL (80-94); Mean Platelet Vol. 9.5 fl (6.2-12.0); Monocyte# 0.48 X10^3/uL; Monocyte% 8.5 % (0-10); NRBC Flagged by Analyzer 0 % (0-5); Neutrophil # 4.28 X10^3/uL (2.7-7.7); Neutrophil % 75.6 % (47-70); Platelet Count 183 K/mm3 (150-450); RBC Distribution Width CV 16.3 % (11.6-14.6); RBC Distribution Width SD 49.9 fl (35.1-43.9); Red Blood Count 4.47 M/mm3 (4.6-6.2); White Blood Count 5.7 K/mm3 (4.4-11.0)
[2022-06-22 12:39] LABS: International Normalized Ratio 2.5; Prothrombin Time (Protime)PT. 26.7 SECONDS (11.7-14.9)
[2022-06-22 13:15] VITALS: BP 165/86; PULSE 52; RESP 18; TEMP 36.5; O2SAT 97
== END 2022-06-22 13:17 | disposition home or self-care (01) ==
PROVIDERS: Physician Assistant; Emergency Provider Emergency Medicine; PCP Family Medicine; Visit Provider Emergency Medicine
DX: S91.301A Unspecified open wound, right foot, initial encounter (principal); I50.9 Heart failure, unspecified; I48.0 Paroxysmal atrial fibrillation; R60.0 Localized edema; I25.10 Atherosclerotic heart disease of native coronary artery without angina pectoris; E78.5 Hyperlipidemia, unspecified; L03.116 Cellulitis of left lower limb; L03.115 Cellulitis of right lower limb; Z95.1 Presence of aortocoronary bypass graft; Z87.891 Personal history of nicotine dependence; X58.XXXA Exposure to other specified factors, initial encounter
CPT/HCPCS: 36415; 80048; 80061; 80076; 85025; 85610; 99284; A4216

== ENCOUNTER → 2022-06-22 | Outpatient (CLI) | payer MEDICARE, SELFPAY ==
[2022-06-22 12:44] LABS: Anion Gap 4 (5-15); BUN 16 mg/dL (7-18); BUN/Creat Ratio 18.8 RATIO (10-20); Calcium,Total 8.7 mg/dL (8.5-10.1); Chloride 104 mmol/L (98-107); Creatinine, Serum 0.85 mg/dL (0.70-1.30); EST Glomerular Filtration Rate 92 mL/min (>60); Est Glom Filt Rate - Afr Amer 112 mL/min (>60); Glucose 47 mg/dL (74-106); Potassium 3.7 mmol/L (3.5-5.1); Sodium Level 137 mmol/L (136-145)
[2022-06-22 12:46] LABS: AST(SGOT) 23 U/L (15-37); Alanine Aminotransfer ALT/SGPT 21 U/L (16-61); Albumin, Serum 3.1 g/dL (3.2-5.0); Alkaline Phosphatase 168 U/L (45-117); Bilirubin, Direct 0.46 mg/dL (0.00-0.30); Cholesterol 97 mg/dL (200); Globulin 4.5 g/dL (2.2-4.2); High Density Lipoprotein 48 mg/dL; Protein, Total 7.6 g/dL (6.4-8.2); Triglycerides 77 mg/dL; Very Low Density Lipoprotein 15 mg/dL (5-40)
== END | disposition home or self-care (01) ==
LOC: LAB 11:01
PROVIDERS: Internal Medicine Cardiovascular Disease; PCP Family Medicine; Visit Provider Physician Assistant Medical
DX: R60.0 Localized edema (principal); E78.5 Hyperlipidemia, unspecified; I25.10 Atherosclerotic heart disease of native coronary artery without angina pectoris; Z95.1 Presence of aortocoronary bypass graft
CPT/HCPCS: 36415; 80048; 80061; 80076

== ENCOUNTER → 2022-08-01 | Outpatient (CLI) | payer MEDICARE, SELFPAY ==
[2022-08-01 16:09] LABS: Anion Gap 8 (5-15); BUN 26 mg/dL (7-18); BUN/Creat Ratio 25.5 RATIO (10-20); Calcium,Total 8.7 mg/dL (8.5-10.1); Chloride 104 mmol/L (98-107); Creatinine, Serum 1.02 mg/dL (0.70-1.30); EST Glomerular Filtration Rate 75 mL/min (>60); Est Glom Filt Rate - Afr Amer 91 mL/min (>60); Glucose 144 mg/dL (74-106); Potassium 4.2 mmol/L (3.5-5.1); Sodium Level 138 mmol/L (136-145)
== END | disposition home or self-care (01) ==
LOC: LAB 13:52
PROVIDERS: PCP Family Medicine; Referring Provider Physician Assistant Medical; Visit Provider Physician Assistant Medical
DX: R60.0 Localized edema (principal)
CPT/HCPCS: 36415; 80048

== ENCOUNTER 2022-12-02 14:08 | Outpatient (RCR) | payer MEDICARE, SELFPAY ==
[2022-12-02 15:04] LABS: Vitamin D,25 Hydroxy 52.5 ng/mL
[2022-12-02 17:19] LABS: International Normalized Ratio 1.7; Prothrombin Time (Protime)PT. 20.1 SECONDS (11.7-14.9)
== END 2022-12-02 18:00 | disposition home or self-care (01) ==
LOC: LAB 14:08
PROVIDERS: Physician Assistant Medical; PCP Family Medicine; Referring Provider Nurse Practitioner Family; Visit Provider Nurse Practitioner Family
DX: E55.9 Vitamin D deficiency, unspecified (principal); I48.20 Chronic atrial fibrillation, unspecified
CPT/HCPCS: 36415; 82306; 85610

== ENCOUNTER → 2022-12-28 | Outpatient (CLI) | payer MEDICARE, SELFPAY ==
[2022-12-28 10:52] LABS: AST(SGOT) 15 U/L (15-37); Alanine Aminotransfer ALT/SGPT 22 U/L (16-61); Albumin, Serum 3.7 g/dL (3.2-5.0); Alkaline Phosphatase 118 U/L (45-117); Bilirubin, Direct 0.23 mg/dL (0.00-0.30); Cholesterol 121 mg/dL (200); Globulin 4.4 g/dL (2.2-4.2); High Density Lipoprotein 41 mg/dL; Protein, Total 8.1 g/dL (6.4-8.2); Triglycerides 138 mg/dL; Very Low Density Lipoprotein 28 mg/dL (5-40)
== END | disposition home or self-care (01) ==
PROVIDERS: PCP Family Medicine; Referring Provider Nurse Practitioner Family; Visit Provider Nurse Practitioner Family
DX: E78.00 Pure hypercholesterolemia, unspecified (principal)
CPT/HCPCS: 36415; 80061; 80076

== ENCOUNTER 2023-01-06 15:58 | Emergency (ER) | payer MEDICARE, SELFPAY ==
[2023-01-06] VITALS (8 sets, daily range): BP systolic 123–174; BP diastolic 58–99; PULSE 59–90; RESP 12–18; TEMP 36.3–36.6; O2SAT 95–99; BMI 22.8
--- NOTE | 2023-01-06 16:05 | CT_ITS ---
We are attempting to reach an attending provider to discuss findings. An addendum with communication details will be sent when the communication is complete. STUDY: CT BRAIN WITHOUT CONTRAST REASON FOR EXAM: Male, 77 years old. fall RADIATION DOSAGE (If Supplied By Facility): CTDIvol = ( 44.99 ) mGy, DLP = ( 812.98 ) mGycm TECHNIQUE: Transaxial CT imaging of the brain was performed without administration of intravenous contrast material. Individualized dose optimization techniques were used for this CT. COMPARISON: January 22, 2022 FINDINGS: Normal soft tissue structures. Normal calvarium. Calcific plaquing of the cavernous carotid and vertebral arteries Normal size ventricles and extra-axial spaces for the patient''s age. Minor periventricular white matter ischemic changes. Normal basal ganglia. Normal brainstem. Normal cerebellum. There are moderate sized mixed acute/subacute subdural hematomas slightly larger on the right. There is mass effect upon the lateral ventricles slightly more pronounced in the right but no midline shift.. There are no findings of an acute ischemic infarction. Normal visualized paranasal sinuses. Postsurgical changes of the orbits. CT/Brain/Head without Contrast IMPRESSION: Moderate size bilateral mixed acute/subacute subdural hematomas with mass effect but without appreciable midline shift Electronically Signed: Vishal Mon MD at 17:42 EST ,
--- NOTE | 2023-01-06 16:05 | CT_ITS ---
STUDY: CT LUMBAR SPINE WITHOUT CONTRAST REASON FOR EXAM: Male, 77 years old. fall RADIATION DOSAGE (If Supplied By Facility): CTDIvol = ( 17.74 ) mGy, DLP = ( 484.44 ) mGycm TECHNIQUE: The patient was scanned in a multi detector CT scanner. High resolution transaxial imaging was performed. Images were obtained from to . Sagittal and coronal images were reconstructed. Individualized dose optimization techniques were used for this CT. COMPARISON: None FINDINGS: Normal lumbar lordosis. There is no substantial scoliosis. Severe wedging of superior endplate of L2 with approximately 80% loss of vertebral body height without well-defined fracture line possibly representing subacute to chronic injury L1-2: Normal endplates. Normal disc height and morphology. Normal bilateral facet joints. Normal central canal and bilateral lateral recesses. Normal bilateral intervertebral neural foramina. L2-3: Normal endplates. Normal disc height and minor annular bulge. Normal bilateral facet joints. Normal central canal and bilateral lateral recesses. Normal bilateral intervertebral neural foramina. L3-4: Normal endplates. Normal disc height and mild annular bulge.. Mild facet arthropathy. Normal central canal and bilateral lateral recesses. Mild to moderate bilateral neural foraminal stenosis L4-5: Normal endplates. Normal disc height and mild annular bulge. Facet arthropathy and thickening of ligamenta flava. Mild narrowing of central canal bilateral lateral recesses. Moderate bilateral neural foraminal stenosis. L5-S1: Normal endplates. Normal disc height and mild annular bulge.. Mild facet arthropathy.. Normal central canal and bilateral lateral recesses. Normal bilateral intervertebral neural foramina. Incidental finding of distal abdominal aortic aneurysm measuring approximately 2.95 x 2.7 cm Normal visualized paraspinous soft tissue structures. CT/Spine Lumbar without Contrast IMPRESSION: Severe anterior wedging of L2 is likely subacute to chronic in duration however MRI would be helpful for further evaluation if strong clinical suspicion for acute injury Otherwise no evidence for acute fracture or subluxation. Spinal stenosis secondary to disc disease and bony hypertrophy Electronically Signed: Vishal Mon MD at 18:09 EST ,
--- NOTE | 2023-01-06 16:41 | EKG12_ITS ---
Test Reason : GENERAL Blood Pressure : / mmHG Vent. Rate : 069 BPM Atrial Rate : 000 BPM P-R Int : 000 ms QRS Dur : 076 ms QT Int : 418 ms P-R-T Axes : 000 -25 -54 degrees QTc Int : 447 ms Atrial fibrillation Possible Inferior infarct , age undetermined Anteroseptal infarct , age undetermined Abnormal ECG Confirmed by CELINA QUAN, ADAIR ([id number]), videotape editor CJ RODRÍGUEZ ([id number]) on 01/13/2023 10:14:57 AM Referred By: Confirmed By:OBED PATRICK MD
--- NOTE | 2023-01-06 16:42 | ED.VIS.FALL ---
HPI HPI - Fall History of Present Illness Chief Complaint: Fall Informant: patient and family Narrative Narrative: Presents with confusion, weakness and a fall at home. History is from patient but mostly from his son who knows him well checks in on him daily and is with him now. The son states that his dad has been not himself for couple days. He is maybe been a little bit confused. He has been sleeping all day. He will go over and check on him and he will end up being in the chair resting all day long. He is not eating. The son did make him some food yesterday and he did eat some. But he went back later in the day to check him and he had not moved from the chair. He does not know if he has had a fever. Today the son checked on him. He found his dad laying in the tub. He was not taking a bath. There was no water. The patient was dressed. The son was able to get him up out of the tub and he did walk with a rollator. There is a skin tear in his right hand but no other signs of injury. His dad states he may have been there since the morning but his dad is confused and really not a good informant for details. The son did note that his father was incontinent. There was urine leading into the bathroom and in the patient's pants. It was very strong smelling and dark. This is not normal for his dad to be incontinent. His dad is on Coumadin for history of atrial fibrillation. It sounds like he has had UTIs before that have presented like this. Patient is not having any complaints but he is not a good informant for any details. Review of systems is really through son as the dad is not able to to answer directly. 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 Lower extremity edema New onset atrial fibrillation Non-rheumatic mitral regurgitation Non-rheumatic mitral valve stenosis Non-rheumatic tricuspid valve insufficiency Nonrheumatic aortic (valve) stenosis Osteoporosis Paroxysmal atrial fibrillation Ulnar neuropathy Vitamin D deficiency Home Medications atorvastatin 20 mg tablet 20 mg PO DAILY CHOLESTEROL 04/05/19 [History Last Taken Unknown] cholecalciferol (vitamin D3) 125 mcg (5,000 unit) disintegrating tablet 5,000 unit PO DAILY BONES 04/05/19 [History Last Taken Unknown] lutein 20 mg capsule 20 mg PO DAILY SUPPLEMENT 05/21/21 [History Last Taken Unknown] omeprazole 20 mg capsule,delayed release 20 mg PO DAILY ACID REFLUX 10/09/21 [History Last Taken Unknown] acetaminophen 500 mg tablet 1,000 mg (2 x 500 mg) PO TID #0 tabs 01/29/22 [Rx Last Taken Unknown] warfarin 3 mg tablet (Jantoven) 3 mg PO DINNER 30 days #30 tabs 01/29/22 [Rx Last Taken Unknown] amlodipine 5 mg tablet 5 mg PO DAILY 06/14/22 [History Last Taken Unknown] warfarin 5 mg tablet 5 mg PO DAILY #120 tabs 10/29/22 [Rx Last Taken Unknown] Allergy/AdvReac Type Severity Reaction Status Date / Time No Known Allergies Allergy Verified 01/06/23 15:59 Family History Mother , when patient was age 14, metastatic breast cancer Breast cancer Father , age 93 , unknown cause No problems noted. Surgical History abdominal incisional hernia repair (2011) History of aortic valve replacement with bioprosthetic valve (~07/27/21) History of arthroplasty of right ankle History of coronary artery bypass surgery (~07/27/21) History of mitral valve repair (~07/27/21) History of right and left heart catheterization (LHC) (~06/05/21) History of total left hip arthroplasty History of ureter repair (2010) Social History household members: none Smoking Status: Former smoker how long ago did patient quit smokin years ago alcohol intake: current alcohol intake frequency: holidays/special occasions only substance use type: does not use caffeine: Yes Type: coffee Number of servings: 4 ROS ROS ED Constitutional Constitutional ED: Denies fever(s) ENT ENT ED: Denies sore throat Cardiovascular Cardiovascular: Denies chest pain Respiratory/Chest Respiratory/Chest: Denies cough Gastrointestinal Gastrointestinal: Denies diarrhea or vomiting Genitourinary Genitourinary ED: Reports other Details: Malodorous urine. Musculoskeletal Musculoskeletal: Reports other Details: Patient denies any pain or injury. Integumentary Reports Abrasions and other Details: Tear right dorsal of hand. Neurologic Neurologic: Reports other Details: Less alert more confused and weaker than normal. ; Denies headache(s) Hematologic/Lymphatic Hematologic/Lymphatic: Reports easy bleeding and easy bruising Allergic/Immunologic Allergic/Immunologic ED: Denies urticaria EXAM Physical Exam Narrative Exam Narrative: General: Patient is sitting in bed. He appears comfortable. I see some bruises on his arms. But he is slightly conversant. But he does not always answer the question that is asked. HEENT: I do not see any sign of head trauma despite a fall into the tub. Mucous membranes are still reasonably moist. No intraoral injury. Neck is supple no tenderness. Heart is irregular. Rate is controlled. Does appear to be atrial fibrillation on the monitor which he has a history of. Rate is running about 65. Lungs are clear. I hear no rhonchi. On his back he has a large sebaceous cyst on the right upper back but it does not look infected. Abdomen shows significant prior surgeries for hernia repair but there is no tenderness. No rebound. Bowel sounds are normal. No CVA or suprapubic tenderness noted on exam. Extremities: Skin tear to right dorsum of the hand. There is some bruises on his arms. But no deformity. No pain with range of motion. I can rotate and axially load his lower extremities and move them and palpate and there is no indication of tenderness including not at the hips. Neurologic patient is awake he is alert. But he does seem to be confused and his son states this is different than his normal. I am not seeing any lateralizing or focal deficit. Const Vital Signs: 01/06/23 15:59 01/06/23 16:58 01/06/23 17:00 Temperature 97.8 F Temperature Source Temporal Pulse Rate 59 L 75 74 Respiratory Rate 18 14 14 Respiratory Effort Respiratory Depth Respiratory Pattern Blood Pressure 135/80 H 160/58 H 174/91 H Blood Pressure Mean 98 92 118 Pulse Ox 97 99 98 Oxygen Delivery Method Room Air Room Air Room Air 01/06/23 16:30 01/06/23 18:00 01/06/23 18:38 Temperature Temperature Source Pulse Rate 90 68 Respiratory Rate 12 16 Respiratory Effort Normal Respiratory Depth Normal Respiratory Pattern Normal Blood Pressure 151/99 H 123/96 H Blood Pressure Mean 116 105 Pulse Ox 95 95 Oxygen Delivery Method Room Air Room Air Room Air 01/06/23 19:00 01/06/23 19:28 01/06/23 20:00 Temperature 97.3 F L Temperature Source Pulse Rate 68 69 73 Respiratory Rate 16 16 14 Respiratory Effort Respiratory Depth Respiratory Pattern Blood Pressure 139/98 H 130/85 H 165/82 H Blood Pressure Mean 111 100 109 Pulse Ox 98 98 98 Oxygen Delivery Method Room Air Room Air MDM MDM MDM Narrative Medical decision making narrative: My independent interpretation of the patient's CT scan of the head shows what appears to be bilateral older subdurals and some acute. This is similar to final reading by radiologist. I discussed the case directly with the radiologist. He feels some of these subdurals are subacute but there could be areas that occurred with a fall earlier today. Patient had a CT scan of the lumbar spine put in from triage due to complaints of pain at that time. There is indication of anterior wedging at L2 but more likely. My independent interpretation of the patient's chest x-ray does show some fractures but these appear to be old. He is not having pain there. Final reading was similar. Patient CBC shows normal white count minimally low hemoglobin but normal platelets. His INR was up at 2.2. Patient's electrolytes showed mild elevation in the BUN and creatinine. Sodium was 132. Liver function test are not showing any marked abnormalities. There is just slight elevation of alkaline phosphatase and total bilirubin. Patient's urinalysis showed no sign of infection. Patient was given vitamin K and Kcentra here for INR/Coumadin reversal with an acute intracranial bleed. I discussed the case with patient and his son. Patient has [facility] insurance so they would like to go there. I discussed the case then with trauma surgeon Dr. Ortega at [facility]. Patient is excepted and will be transferred there. This note was generated with Jay[employer] dictation software. It may contain incorrect words, spelling, and punctuation that were not noted in review of the chart prior to signing. Lab Data Labs: Laboratory Results - last 24 hr 01/06/23 01/06/23 16:10 17:30 WBC 10.8 RBC 4.42 L Hgb 12.7 L Hct 40.0 MCV 90.5 MCH 28.7 MCHC 31.8 L RDW Std Deviation 43.8 RDW Coeff of Elayne 13.2 Plt Count 259 MPV 10.4 Immature Gran % (Auto) 0.500 Neut % (Auto) 84.4 H Lymph % (Auto) 8.9 L Stone % (Auto) 5.8 Eos % (Auto) 0.1 Baso % (Auto) 0.3 Absolute Neuts (auto) 9.2 H Absolute Lymphs (auto) 0.97 Nucleated RBC % 0 PT 24.9 H INR 2.2 Sodium 132 L Potassium 4.7 Chloride 97 L Carbon Dioxide 26.0 Anion Gap 9 BUN 40 H Creatinine 1.31 H Estim Creat Clear Calc 50.93 Est GFR (MDRD) Af Amer 68 Est GFR (MDRD) Non-Af 56 L BUN/Creatinine Ratio 30.5 H Glucose 123 H Calcium 10.0 Total Bilirubin 1.40 H AST 32 ALT 22 Alkaline Phosphatase 128 H Total Protein 8.3 H Albumin 4.1 Globulin 4.2 Albumin/Globulin Ratio 1.0 Urine Color Yellow Urine Clarity Clear Urine pH 5.0 Ur Specific [place] 1.020 Urine Protein 100 H Urine Glucose (UA) Normal Urine Ketones 5 H Urine Occult Blood 50 H Urine Nitrite Negative Urine Bilirubin Negative Urine Urobilinogen 1 H Ur Leukocyte Esterase Negative Urine RBC 0-5 SEEN Urine WBC 0 SEEN Ur Squamous Epith Cells 0 SEEN Urine Bacteria 0 SEEN Urine Mucus 0 SEEN Radiography Diagnostic Testing: Clinical Impression(s) from Imaging Studies Brain CT 01/06/23 16:05 IMPRESSION: Moderate size bilateral mixed acute/subacute subdural hematomas with mass effect but without appreciable midline shift Electronically Signed: Vishal Mon MD at 17:42 EST Reading Location ID and State: [address] [place] [address] Tel , Service support , ADDENDUM: 01/06/23 8180 IMPRESSION: Moderate size bilateral mixed acute/subacute subdural hematomas with mass effect but without appreciable midline shift N.B. : The above Results were Read Back by Vishal Mon MD to Missael Marte MD, and understanding confirmed on 01/06/2023 17:48:33 (ET). Electronically Signed: Vishal Mon MD at 17:42 EST Reading Location ID and State: [address] [place] [address] Tel , Service support , Lumbar Spine CT 01/06/23 16:05 IMPRESSION: Severe anterior wedging of L2 is likely subacute to chronic in duration however MRI would be helpful for further evaluation if strong clinical suspicion for acute injury Otherwise no evidence for acute fracture or subluxation. Spinal stenosis secondary to disc disease and bony hypertrophy Electronically Signed: Vishal Mon MD at 18:09 EST Reading Location ID and State: [address] [place] [address] Tel , Service support , Chest X-Ray 01/06/23 16:53 IMPRESSION: ASHD and postsurgical changes. No acute cardiopulmonary pathology Multiple old healed fractures of left ribs and one of which appears incompletely healed. Electronically Signed: Vishal Mon MD at 17:28 EST Reading Location ID and State: [address] [place] [address] Tel , Service support , EKG Initial EKG: Comments: My independent interpretation of the patient's EKG shows atrial fibrillation with controlled rate at 69. No ventricular ectopy. Diffuse nonspecific ST and T wave change but no sign of acute infarct or ischemia. QRS duration and QTc are normal. Critical Care Time Critical care time (excluding procedures): 30-74 minutes, Including time spent:, Discussing w/Patient &/or Family/Auto Service Representative, Discussing w/Consultants, Arranging Admission or Transfer, Performing Direct Patient Care at Bedside and - (45 minutes, evaluation, repeat evaluation, discussing results, arranging transfer, providing medications, talking with pharmacist) Discharge Plan Triage Chief Complaint: Fall ED Provider: Missael Marte Dx/Rx/DC Orders Clinical Impression: Bilateral subdural hematomas, Fall at home, Acute confusion, Warfarin-induced coagulopathy Prescriptions: No Action atorvastatin 20 mg tablet 20 mg PO DAILY cholecalciferol (vitamin D3) 5,000 unit tablet,disintegrating 5,000 unit PO DAILY lutein 20 mg capsule 20 mg PO DAILY Rx Instructions: give with meal/snack omeprazole 20 mg capsule,delayed release(DR/EC) 20 mg PO DAILY amlodipine 5 mg tablet 5 mg PO DAILY acetaminophen 500 mg Tablet 1,000 mg PO TID Qty: 0 0RF warfarin [Jantoven] 3 mg Tablet 3 mg PO DINNER 30 Days Qty: 30 0RF warfarin 5 mg tablet 5 mg PO DAILY Qty: 120 3RF Protocol: Dose Management Protocol Text: Patient Instructed to take: warfarin 2.5 mg (1 Tab) on , , SA warfarin 5 mg (1 Tab) on , , , , , , SA Rx Instructions: Take one tablet every evening and 3 days a week take 2 tablets. 5 mg Fri- and 10 mg /sat/sun Primary Care Provider: Jenelle Oconnell Referrals: Jenelle Oconnell MD [Primary Care Provider] - Disposition Disposition: Acute Care Hospital Discharge Location: [facility] Discharge Date/Time: 01/06/23 20:53
[2023-01-06 16:51] LABS: International Normalized Ratio 2.2; Prothrombin Time (Protime)PT. 24.9 SECONDS (11.7-14.9)
--- NOTE | 2023-01-06 16:53 | RAD_ITS ---
STUDY: X-RAY CHEST REASON FOR EXAM: Male, 77 years old. trauma TECHNIQUE: AP portable COMPARISON: May 21, 2021 FINDINGS: The lungs are clear and expanded. Mild pleural thickening at left base. Postop change status post median sternotomy and CABG as well as valve replacement The heart is enlarged.. Normal mediastinum and evita. Normal visualized pulmonary arteries. Normal visualized aortic arch and descending thoracic aorta. Dorsal spine and shoulders demonstrate degenerative change. Normal visualized clavicles Partially healed mildly displaced fracture of the left sixth rib. Old healed fractures of the left fourth and fifth ribs There is no demonstrated abnormality of the visualized soft tissue structures of the upper abdomen. RAD/Chest 1 View (Portable) IMPRESSION: ASHD and postsurgical changes. No acute cardiopulmonary pathology Multiple old healed fractures of left ribs and one of which appears incompletely healed. Electronically Signed: Vishal Mon MD at 17:28 EST ,
[2023-01-06 17:25] LABS: Absolute Lymphocyte Count 0.97 X10^3/uL (0.83-4.51); Absolute Neutrophil Count 9.2 X10^3/uL (2.0-7.7); Basophil# 0.03 X10^3/uL; Basophil% 0.3 % (0-1); Eosinophil# 0.01 X10^3/uL; Eosinophils% 0.1 % (0-5); Hemoglobin 12.7 g/dL (13.0-16.5); Lymphocyte # 0.97 X10^3/ul (0.83-4.51); Lymphocyte % 8.9 % (19-41); Mean Corp Hgb Conc 31.8 g/dL (32-36); Mean Corpuscular Hgb 28.7 pg (27.0-32.0); Mean Corpuscular Volume 90.5 fL (80-94); Mean Platelet Vol. 10.4 fl (6.2-12.0); Monocyte# 0.63 X10^3/uL; Monocyte% 5.8 % (0-10); NRBC Flagged by Analyzer 0 % (0-5); Neutrophil # 9.15 X10^3/uL (2.7-7.7); Neutrophil % 84.4 % (47-70); Platelet Count 259 K/mm3 (150-450); RBC Distribution Width CV 13.2 % (11.6-14.6); RBC Distribution Width SD 43.8 fl (35.1-43.9); Red Blood Count 4.42 M/mm3 (4.6-6.2); White Blood Count 10.8 K/mm3 (4.4-11.0)
[2023-01-06 17:38] LABS: Bacteria 0 SEEN /hpf (None Seen); Mucous, Urine 0 SEEN /hpf (<or=2+); Squamous Epithelial Cells - UA 0 SEEN /hpf (0-5); White Blood Cells 0 SEEN /hpf (0-5)
[2023-01-06 17:43] LABS: Color, Urine Yellow (Yellow); Glucose, Dipstick Normal (Normal); Ketone-Dipstick 5 mg/dl (Negative); Leukocyte Esterase-Dipstick Negative /ul (Negative); Nitrite-Dipstick Negative (Negative); Occult Blood-Urine 50 /ul (Negative); Protein-Dipstick 100 mg/dl (Negative); Urine Bilirubin Dipstick Negative (Negative); Urine Clarity Clear (Clear); Urine Urobilinogen 1 mg/dl (Normal)
[2023-01-06 17:58] LABS: Red Blood Cells-Urine 0-5 SEEN /hpf (0-5)
[2023-01-06 18:08] LABS: AST(SGOT) 32 U/L (15-37); Alanine Aminotransfer ALT/SGPT 22 U/L (16-61); Albumin, Serum 4.1 g/dL (3.2-5.0); Alkaline Phosphatase 128 U/L (45-117); Anion Gap 9 (5-15); BUN 40 mg/dL (7-18); BUN/Creat Ratio 30.5 RATIO (10-20); Chloride 97 mmol/L (98-107); Creatinine, Serum 1.31 mg/dL (0.70-1.30); EST Glomerular Filtration Rate 56 mL/min (>60); Est Glom Filt Rate - Afr Amer 68 mL/min (>60); Estimated Creatinine Clearance 50.93 ml/min; Globulin 4.2 g/dL (2.2-4.2); Glucose 123 mg/dL (74-106); Potassium 4.7 mmol/L (3.5-5.1); Protein, Total 8.3 g/dL (6.4-8.2); Sodium Level 132 mmol/L (136-145)
[2023-01-06] MEDS: Phytonadione (Vit K) 10 MG in 0.9% Normal Saline (50mL Bag) 50 ML 153 MG IV (18:30)
== END 2023-01-06 20:53 | disposition short-term general hospital (02) ==
LOC: ED 17:11
PROVIDERS: Emergency Provider Emergency Medicine; PCP Family Medicine; Visit Provider Emergency Medicine
DX: S06.5X0A Traumatic subdural hemorrhage without loss of consciousness, initial encounter (principal); I48.0 Paroxysmal atrial fibrillation; E11.9 Type 2 diabetes mellitus without complications; R41.0 Disorientation, unspecified; R79.1 Abnormal coagulation profile; E78.5 Hyperlipidemia, unspecified; I10 Essential (primary) hypertension; I25.10 Atherosclerotic heart disease of native coronary artery without angina pectoris; E55.9 Vitamin D deficiency, unspecified; K21.9 Gastro-esophageal reflux disease without esophagitis; Z79.01 Long term (current) use of anticoagulants; Z79.899 Other long term (current) drug therapy; Z87.891 Personal history of nicotine dependence; Z95.1 Presence of aortocoronary bypass graft; W19.XXXA Unspecified fall, initial encounter
CPT/HCPCS: 70450; 71045; 72131; 80053; 81001; 85025; 85610; 87086; 87428; 93005; 96365; 99285; J7168; P9612; J3490

== ENCOUNTER 2023-01-15 13:26 | Inpatient (IN) | payer MEDICARE, SELFPAY ==
[2023-01-15 13:34] VITALS: BP 130/92; PULSE 55; RESP 16; TEMP 36.1; O2SAT 97; BMI 21.6
--- NOTE | 2023-01-15 15:24 | NURSING ---
Excellence Leader Note; Activity Asset: Mahesh Casanova has returned to TCU for continued therapy and remains independent in his choice of daily activities. He has stated he has recently lost his and would like to just hang out in his room watching tv, reading the newspaper and visiting w/family. His main goal is to get better and get back home. He is very pleasant and enjoys talking w/other and welcomes visits from the dust mixer. Staff will remind him of daily activities and respect his right to say no.
[2023-01-15 15:38] LABS: Absolute Lymphocyte Count 1.23 X10^3/uL (0.83-4.51); Absolute Neutrophil Count 4.6 X10^3/uL (2.0-7.7); Basophil# 0.05 X10^3/uL; Basophil% 0.7 % (0-1); Eosinophil# 0.13 X10^3/uL; Eosinophils% 1.9 % (0-5); Hematocrit 34.5 % (40-54); Hemoglobin 10.6 g/dL (13.0-16.5); Lymphocyte # 1.23 X10^3/ul (0.83-4.51); Lymphocyte % 18.4 % (19-41); Mean Corp Hgb Conc 30.7 g/dL (32-36); Mean Corpuscular Hgb 28.6 pg (27.0-32.0); Mean Platelet Vol. 9.5 fl (6.2-12.0); Monocyte# 0.62 X10^3/uL; Monocyte% 9.3 % (0-10); NRBC Flagged by Analyzer 0 % (0-5); Neutrophil # 4.57 X10^3/uL (2.7-7.7); Neutrophil % 68.7 % (47-70); Platelet Count 219 K/mm3 (150-450); RBC Distribution Width CV 13.2 % (11.6-14.6); RBC Distribution Width SD 45.1 fl (35.1-43.9); Red Blood Count 3.71 M/mm3 (4.6-6.2); White Blood Count 6.7 K/mm3 (4.4-11.0)
[2023-01-15 16:27] LABS: Anion Gap 7 (5-15); BUN 17 mg/dL (7-18); BUN/Creat Ratio 22.1 RATIO (10-20); Calcium,Total 8.8 mg/dL (8.5-10.1); Chloride 103 mmol/L (98-107); Creatinine, Serum 0.77 mg/dL (0.70-1.30); EST Glomerular Filtration Rate 104 mL/min (>60); Est Glom Filt Rate - Afr Amer 125 mL/min (>60); Estimated Creatinine Clearance 66.41 ml/min; Glucose 95 mg/dL (74-106); Potassium 4.2 mmol/L (3.5-5.1); Sodium Level 138 mmol/L (136-145)
[2023-01-15 18:03] VITALS: PULSE 78; RESP 16
--- NOTE | 2023-01-15 19:21 | NURSING ---
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 will update dr lal.
--- NOTE | 2023-01-15 19:58 | HP.PCM_ITS ---
HPI - General General Date of Admission: 01/15/23 Date of Service: 01/15/23 Chief Complaint: Here for rehabilitation. HPI Narrative 01/06/2023 ADA JUNE, is a 77 Male who presents to [facility] with fall. Weakness, fell, confusion at home. Confused for 2 days, sleeping all day, not eating. Did not move from chair all day, laying in tub fully dressed. Walked with rollator, incontinent of urine, on coumadin for atrial fibrillation. CT head showed bilateral subdural hematoma, some old, some new. INR 2.2, Vitamin D, KCentra given. Transfer to [facility] for subdural hematoma. 01/06/2023 Admit to [facility]. Acute on subacute bilateral SDH, consult neurosurgery, hold coumadin. Hold blood pressure medications. NPO, IV fluids, in case of surgery. Repeat CT head. PT/OT debility. 01/07/2023 Neurosurgery recommended stopping coumadin. 01/07/2023 Neurosurgery performed bilateral diana holes, drain placement for SDH evacuation. 01/09/2023 Exam improved, drains removed. PT/OT. DVT prophylaxis 01/10/2023. Failed ST bedside swallow evaluation, NG tube for nutrition. 01/09/2023 Seroquel 50mg qhs, 12.5mg bid, PRN Haldol for agitation. Recommend outpatient evaluation for dementia when at baseline. No further anticoagulation. Hypoactive delirium. 01/11/2023 Increase amlodipine from 5mg to 10mg daily for blood pressure control. Remove oswaldo 01/20/2023. 01/15/2023 Admit to TCU with debility, here for rehabilitation, strengthening, prior to dischrage to assisted living. [facility] Medical History (Updated 01/15/23 @ 20:[address] Jesse Mixon MD) Atherosclerotic heart disease of chilkoot coronary artery without angina pectoris Caregiver stress Depression Diabetes mellitus, type II Essential hypertension GERD (gastroesophageal reflux disease) Hydronephrosis Hyperlipidemia residential current use of anticoagulant Lower extremity edema New onset atrial fibrillation Non-rheumatic mitral regurgitation Non-rheumatic mitral valve stenosis Non-rheumatic tricuspid valve insufficiency Nonrheumatic aortic (valve) stenosis Osteoporosis Paroxysmal atrial fibrillation Ulnar neuropathy Vitamin D deficiency Home Medications atorvastatin 20 mg tablet 20 mg PO DAILY CHOLESTEROL 04/05/19 [History Last Taken 01/14/23] cholecalciferol (vitamin D3) 125 mcg (5,000 unit) disintegrating tablet 5,000 unit PO DAILY BONES 04/05/19 [History Last Taken Unknown] lutein 20 mg capsule 20 mg PO DAILY SUPPLEMENT 05/21/21 [History Last Taken Unknown] omeprazole 20 mg capsule,delayed release 20 mg PO DAILY ACID REFLUX 10/09/21 [History Last Taken Unknown] acetaminophen 500 mg tablet 1,000 mg (2 x 500 mg) PO TID pain #0 tabs 01/29/22 [Rx Last Taken 01/15/23] warfarin 3 mg tablet (Jantoven) 3 mg PO DINNER blood thinner 30 days #30 tabs 01/29/22 [Rx Last Taken Unknown] amlodipine 5 mg tablet 5 mg PO DAILY bp 06/14/22 [History Last Taken Unknown] warfarin 5 mg tablet 5 mg PO DAILY blood thinner #120 tabs 10/29/22 [Rx Last Taken Unknown] amlodipine 10 mg tablet 10 mg PO DAILY BP 01/15/23 [History Last Taken Unknown] enoxaparin 30 mg/0.3 mL subcutaneous syringe 30 mg subcut Q12H anticoagulant 01/15/23 [History Last Taken 01/15/23] melatonin 3 mg tablet 3 mg PO QHS sleep disturbance 01/15/23 [History Last Taken 01/14/23] ondansetron 4 mg disintegrating tablet 4 mg PO Q8H PRN nausea and vomiting 01/15/23 [History Last Taken Unknown] oxycodone 5 mg tablet See Rx Instructions PO DAILY pain 01/15/23 [History Last Taken Unknown] polyethylene glycol 3350 17 gram oral powder packet (Miralax) 17 g PO DAILY PRN constipation 01/15/23 [History Last Taken 01/15/23] quetiapine 25 mg tablet 12.5 mg PO BID PRN agitation 01/15/23 [History Last Take n Unknown] quetiapine 50 mg tablet 50 mg PO QHS agitation 01/15/23 [History Last Taken Unknown] sennosides 8.6 mg tablet (Senokot) 8.6 mg PO QHS laxative 01/15/23 [History Last Taken 01/14/23] spironolactone 25 mg tablet 25 mg PO DAILY water pill 01/15/23 [History Last Taken 01/15/23] tamsulosin 0.4 mg capsule (Flomax) 0.4 mg PO DAILY prostate 01/15/23 [History Last Taken 01/15/23] Allergy/AdvReac Type Severity Reaction Status Date / Time No Known Allergies Allergy Verified 01/06/23 15:59 Family History Mother , when patient was age 14, metastatic breast cancer Breast cancer Father , age 93 , unknown cause No problems noted. Surgical History (Updated 01/15/23 @ 20:[address] Jesse Mixon MD) abdominal incisional hernia repair (2011) History of aortic valve replacement with bioprosthetic valve (~07/27/21) History of arthroplasty of right ankle History of diana hole surgery History of coronary artery bypass surgery (~07/27/21) History of mitral valve repair (~07/27/21) History of right and left heart catheterization (LHC) (~06/05/21) History of total left hip arthroplasty History of ureter repair (2010) Social History household members: none Smoking Status: Former smoker how long ago did patient quit smokin years ago alcohol intake: current alcohol intake frequency: holidays/special occasions only substance use type: does not use caffeine: Yes Type: coffee Number of servings: 4 ROS Constitutional Constitutional: Denies chills, fever(s) or weight gain ENT HEENT: Denies headache(s), nasal congestion or nasal discharge Cardiovascular Cardiovascular: Denies chest pain or palpitations Respiratory/Chest Respiratory/Chest: Denies cough, excessive phlegm production or shortness of breath with exertion Gastrointestinal Gastrointestinal: Denies abdominal pain, nausea or vomiting Genitourinary Genitourinary: Denies dysuria Musculoskeletal Musculoskeletal: Denies joint pain or joint swelling Integumentary Integumentary: Denies rash or wounds Neurologic Neurologic: Denies focal weakness, numbness or tingling Psychiatric Psychiatric: Denies anxiety, auditory hallucinations, depression, homicidal ideation or suicidal ideation Vital Signs Vital Signs Vital Signs: 01/15/23 13:34 01/15/23 18:03 Temperature 97 F L Temperature Source Temporal Pulse Rate 55 L 78 Pulse Rhythm Regular Pulse Strength Normal (2+) Respiratory Rate 16 16 Respiratory Effort Normal Non-Labored Respiratory Depth Normal Respiratory Pattern Normal Blood Pressure 130/92 H Blood Pressure Mean 104 Blood Pressure Source Monitor Blood Pressure Position Sitting Blood Pressure Location Left Arm Pulse Ox 97 Oxygen Delivery Method Room Air Room Air Weight Weight: 78.381 kg Body Mass Index (BMI) 21.6 Physical Exam Const alert General Appearance: cooperative HEENT normocephalic HEENT Narrative: 4 AP incisions of scalp lateral to midline, oswaldo intact. Eyes PERRL and EOMs intact bilaterally Neck supple, no JVD and no carotid bruits Resp normal respiratory effort, normal air movement and clear to auscultation bilaterally Cardio regular rate and regular rhythm GI normal to inspection, nondistended, normoactive bowel sounds, non-tender and non-distended Extremity normal capillary refill General Extremity: Negative for edema Skin no rashes or lesions noted General Skin Exam: no breakdown Psych affect normal Appearance: appropriate Results Lab / Micro Data 01/15/23 15:19 01/15/23 15:19 Labs: Laboratory Results - last 24 hr 01/15/23 15:19: WBC 6.7, RBC 3.71 L, Hgb 10.6 L, Hct 34.5 L, MCV 93.0, MCH 28.6, MCHC 30.7 L, RDW Std Deviation 45.1 H, RDW Coeff of Elayne 13.2, Plt Count 219, MPV 9.5, Immature Gran % (Auto) 1.000 H, Neut % (Auto) 68.7, Lymph % (Auto) 18.4 L, [place] % (Auto) 9.3, Eos % (Auto) 1.9, Baso % (Auto) 0.7, Absolute Neuts (auto) 4.6, Absolute Lymphs (auto) 1.23, Nucleated RBC % 0, Sodium 138, Potassium 4.2, Chloride 103, Carbon Dioxide 28.0, Anion Gap 7, BUN 17, Creatinine 0.77, Estim Creat Clear Calc 66.41, Est GFR (MDRD) Af Amer 125, Est GFR (MDRD) Non-Af 104, BUN/Creatinine Ratio 22.1 H, Glucose 95, Calcium 8.8 Assessment & Plan Assessment/Plan (1) Debility: (2) Bilateral subdural hematomas: (3) Hypoactive delirium after surgical procedure: (4) Osteoporosis: (5) Diabetes mellitus: (6) Hyperlipidemia: (7) Muscle spasm: (8) Atrial fibrillation: (9) Depression: (10) GERD (gastroesophageal reflux disease): (11) Coronary artery disease: (12) Heart failure with reduced ejection fraction: PLAN: Plan 77 year old male with below past medical history hospitalized for bilateral SDH, underwent diana hole evacuation 01/07/2023, complicated by delirium, hypertension, admitted to TCU with debility, here for rehabilitation, strengthening, prior to discharge to assisted living. * Debility - PT/OT. * Dysphagia - ST. * Pain - Tylenol 1000mg tid, Oxycodone 2.5-5mg daily. * Bowel - Miralax 17gm daily prn, senna/colace 1 tablet bid, Magnesium citrate 300ml daily prn. * Adult immunization - Administer pneumonia vaccine, covid vaccine, flu vaccine as appropriate. * DVT prophylaxis - Lovenox 40mg sc daily. * Hypertension - Amlodipine 10mg daily. * Hyperlipidemia - Atorvastatin 20mg qhs. * Insomnia - Melatonin 3mg qhs. * Skin irritation - Calmoseptine topical bid, Eucerin topical WHs. * Nausea - Zofran 4mg q8h prn. * GERD - Pantoprazole 20mg daily. * Hypoactive delirium - Seroquel 50mg qhs, 12.5mg bid prn, GDR as tolerated. * Heart failure reduced ejection fraction - Aldactone 25mg daily. * BPH - Tamsulosin 0.4mg daily.
[2023-01-15] MEDS: Petrolatum 33% Tube 1 APPLIC TOPICAL ×2 (20:18→22:30)
[2023-01-15] MEDS: MELATONIN 3 MG TABLET PO (20:19)
[2023-01-15] MEDS: Enoxaparin 30 MG/0.3 ML Syringe SC (20:21)
[2023-01-15] MEDS: Atorvastatin Calcium 20 MG Tablet PO (20:22)
[2023-01-15] MEDS: Acetaminophen 500 MG Tablet 1000 MG PO (20:23)
[2023-01-15] MEDS: QUEtiapine 25 MG Tablet 50 MG PO (20:23)
[2023-01-15] MEDS: Senna Tablet 1 TABLET PO (20:23)
[2023-01-15] MEDS: Senna/Docusate Sodium 1 Tablet PO (22:15)
[2023-01-15] MEDS: Menthol/Lanolin/Calamine/Znox 113 GM Tube 1 APPLIC TOPICAL (23:50)
[2023-01-16 05:00] VITALS: BP 128/87; PULSE 65; RESP 17; TEMP 36.6; O2SAT 98
[2023-01-16] MEDS: Acetaminophen 500 MG Tablet 1000 MG PO ×3 (06:23→21:25)
[2023-01-16] MEDS: Enoxaparin 40 MG/0.4 ML Syringe SC (06:23)
[2023-01-16] MEDS: QUEtiapine 25 MG Tablet 12.5 MG PO (09:12)
[2023-01-16] MEDS: Tamsulosin HCl 0.4 MG Capsule PO (09:12)
[2023-01-16] MEDS: Spironolactone 25 MG Tablet PO (09:12)
[2023-01-16] MEDS: Pantoprazole Sodium 20 MG Tablet PO (09:12)
[2023-01-16] MEDS: Senna/Docusate Sodium 1 Tablet PO ×2 (09:12→21:24)
[2023-01-16] MEDS: amLODIPine 10 MG Tablet PO (09:13)
[2023-01-16] MEDS: Menthol/Lanolin/Calamine/Znox 113 GM Tube 1 APPLIC TOPICAL ×2 (09:13→21:23)
[2023-01-16 09:15] VITALS: BP 101/59; PULSE 81
--- NOTE | 2023-01-16 09:41 | PCM.PN.DRR ---
TCU RX Drug Regimen Review Subjective/Objective Subjective/Objective: Subjective: 77 YOM admitted to TCU 01/15/23 S/P hospitalization at an outside facility for a subdural hematoma. Had diana holes placed during hospitalization with drain placement. Patient was previously on warfarin for atrial fibrillation, and anticoagulation was stopped. Admitted to TCU for rehabilitation and strengthening prior to discharge to an assisted living facility. Objective: Allergies No Known Allergies Allergy (Verified 01/06/23 15:59) Current Medications Generic Name Dose Route Start Last Admin Trade Name Freq PRN Reason Stop Dose Admin Acetaminophen 1,000 mg 01/15/23 22:00 01/16/23 06:23 Acetaminophen 500 Mg Tablet PO 1,000 mg TID CRAIG Administration Amlodipine Besylate 10 mg 01/16/23 10:00 01/16/23 09:13 Amlodipine 10 Mg Tablet PO 10 mg DAILY CRAIG Administration Protocol Atorvastatin Calcium 20 mg 01/15/23 22:00 01/15/23 20:22 Atorvastatin Calcium 20 Mg Tablet PO 20 mg QHS CRAIG Administration Calamine/Phenol 1 applic 01/15/23 22:00 01/16/23 09:13 Menthol/Lanolin/Calamine/Znox 113 Gm Tube TOPICAL 1 applic BID CRAIG Administration Protocol Clarify Med Order 1 each 01/16/23 10:00 Clarify Order NOTE CLARIFY CRAIG Enoxaparin Sodium 40 mg 01/16/23 06:00 01/16/23 06:23 Enoxaparin 40 Mg/0.4 Ml Syringe SC 40 mg DAILY@0600 CRAIG Administration Magnesium Citrate 300 ml 01/15/23 20:25 Magnesium Citrate 300 Ml PO DAILY PRN Constipation Melatonin 3 mg 01/15/23 22:00 01/15/23 20:19 Melatonin 3 Mg Tablet PO 3 mg QHS CRAIG Administration Multi-Ingredient Cream 1 applic 01/15/23 22:00 01/15/23 22:30 Petrolatum 33% Tube TOPICAL 1 applic QHS [facility] Administration Protocol Ondansetron HCl 4 mg 01/15/23 14:08 Ondansetron Odt 4 Mg Tablet PO Q8H PRN nausea and vomiting Oxycodone HCl 2.5 - 5 mg 01/16/23 10:00 Oxycodone 5 Mg Tablet PO DAILY CRAIG Pantoprazole Sodium 20 mg 01/16/23 10:00 01/16/23 09:12 Pantoprazole Sodium 20 Mg Tablet PO 20 mg DAILY CRAIG Administration Polyethylene Glycol 17 gm 01/15/23 14:08 Polyethylene Glycol 3350 17 Gm Packet PO DAILY PRN constipation Quetiapine Fumarate 50 mg 01/15/23 22:00 01/15/23 20:23 Quetiapine 25 Mg Tablet PO 50 mg QHS CRAIG Administration Quetiapine Fumarate 12.5 mg 01/16/23 10:00 01/16/23 09:12 Quetiapine 25 Mg Tablet PO 12.5 mg BID CRAIG Administration Senna/Docusate Sodium 1 tablet 01/15/23 22:00 01/16/23 09:12 Senna/Docusate Sodium 1 Tablet PO 1 tablet BID CRAIG Administration Spironolactone 25 mg 01/16/23 10:00 01/16/23 09:12 Spironolactone 25 Mg Tablet PO 25 mg DAILY CRAIG Administration Protocol Tamsulosin HCl 0.4 mg 01/16/23 08:30 01/16/23 09:12 Tamsulosin Hcl 0.4 Mg Capsule PO 0.4 mg DAILY@0830 CRAIG Administration Tuberculin PPD 0.1 ml 01/23/23 10:00 Tuberculin,Purif.Prot.Deriv. 50 Tu/Ml Vial ID 01/23/23 10:01 X1 ONE Tuberculin PPD 0.1 ml 01/16/23 10:00 Tuberculin,Purif.Prot.Deriv. 50 Tu/Ml Vial ID 01/16/23 10:01 X1 ONE Problem List (Updated 01/15/23 @ 20:[address] Jesse Mixon MD) Heart failure with reduced ejection fraction (Acute) Coronary artery disease (Acute) Muscle spasm (Acute) Hypoactive delirium after surgical procedure (Acute) GERD (gastroesophageal reflux disease) (Acute) Osteoporosis (Acute) Diabetes mellitus (Acute) Atrial fibrillation (Acute) Hyperlipidemia (Acute) Debility (Acute) Depression (Chronic) Vital Signs Temp Pulse Resp BP Pulse Ox O2 Del Method 97.9 F 81 17 101/59 L 98 Room Air 01/16/23 05:00 01/16/23 09:15 01/16/23 05:00 01/16/23 09:15 01/16/23 05:00 01/16/23 05:00 Oxygen Delivery Method Room Air Weight: 78.381 kg Body Mass Index (BMI) 21.6 Sodium 138 mmol/L (136-145) 01/15/23 15:19 Potassium 4.2 mmol/L (3.5-5.1) 01/15/23 15:19 Chloride 103 mmol/L (98-107) 01/15/23 15:19 Carbon Dioxide 28.0 mmol/L (21.0-32.0) 01/15/23 15:19 Anion Gap 7 (5-15) 01/15/23 15:19 BUN 17 mg/dL (7-18) 01/15/23 15:19 Creatinine 0.77 mg/dL (0.70-1.30) 01/15/23 15:19 Est GFR (MDRD) Af Amer 125 mL/min (>60) 01/15/23 15:19 Est GFR (MDRD) Non-Af 104 mL/min (>60) 01/15/23 15:19 BUN/Creatinine Ratio 22.1 RATIO (10-20) H 01/15/23 15:19 Glucose 95 mg/dL (74-106) 01/15/23 15:19 Assessment/Plan: 1. Pain: Tylenol 1000mg PO Q8, Oxycodone 2.5-5mg PO Daily. Please continue to monitor for increased/decreased pain, oversedation/respiratory depression/ constipation with narcotic use. 2. HTN/CHF/Afib/HLD: Norvasc 10mg PO Daily, Lipitor 20mg PO QHS, Aldactone 25mg PO Daily. Please continue to monitor BP (range 101-130/59-92), pulse (range 55-81), lipid panel annually (last 01/2023, results WNL), potassium (K = 4.2 on 01/15), renal function (est CrCl 66 mL/min), echocardiogram annually (last done 10/2021, EF 30%). Note: pt was previously on Coumadin for anticoagulation, but it was stopped. It was indicated pt is to not have any further systemic anticoagulation. 3. BPH: Flomax 0.4mg PO Daily. Please continue to monitor for bladder retention, hypotension. 4. GERD: Protonix 20mg PO Daily. Please continue to monitor for stomach upset, abdominal pain. Please consider non-pharmacologic treatments to help minimize GERD flare-ups, as well. 5. Nausea: Zofran 4mg PO Q8h PRN. Please continue to monitor for headache, medication effectiveness, PRN medication use. 6. Insomnia: melatonin 3mg PO QHS. Please continue to monitor for medication effectiveness, oversedation. If medication appears ineffective, please consider administering medication ~2hr prior to desired bedtime for optimal medication effectiveness. 7. DVT Prophylaxis: Lovenox 40mg SC Daily. Please continue to monitor for S/S bleeding/bruising, CrCl (last ~66mL/min on 01/15), H/H (Hgb 10.6, Hct 34.5% on 01/15), platelet count (Plt 219 on 01/15). 8. Skin Integrity: Calmoseptine topically BID, Eucerin topically QHS. Please continue to monitor for skin irritation, redness, dryness, ulcer formation. 9. Bowel: Senna/docusate 1 tab PO BID, Miralax 17g PO Daily PRN, Magnesium citrate 300mL PO Daily PRN. Please continue to monitor for increased/decreased constipation and/or diarrhea. Assessment/Plan for indications treated with psychotropic medications: 1. Hypoactive delirium: Seroquel 25mg daily, 75mg PO QHS. Please consider a GDR as clinically indicated, thank you. This medication is a Beer's Criteria medication and can increase the risk of decline or mortality with use. Please evaluate to see if alternate agents may be more appropriate, thank you. Medical chart and medication regimen reviewed. The following medication irregularities or issues were identified: 1. CHF: Last echocardiogram completed 10/2021. Please consider obtaining a new echocardiogram since it has been >12 months since last one was completed. 2. Hypoactive delirium: Seroquel 25mg daily, 75mg PO QHS. Please consider a GDR as clinically indicated, thank you. This medication is a Beer's Criteria medication and can increase the risk of decline or mortality with use. Please evaluate to see if alternate agents may be more appropriate, thank you. Date Date of Note:: 01/16/23
[2023-01-16] MEDS: Tuberculin,Purif.prot.deriv. 50 TU/ML Vial 0.1 ML ID (11:44)
[2023-01-16 14:24] VITALS: BP 111/57; PULSE 66; RESP 18; TEMP 36.3; O2SAT 98
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
--- NOTE | 2023-01-16 15:34 | CHAPLAIN ---
Type of Pastoral Visit _x__ Initial Visit ___ Follow-up Visit ___ On-call Visit ___ General Patient Visit ___ Spiritual Assessment ___ Family Conference ___ Bereavement ___ Rapid Response ___ Code Blue ___ Other (describe below) Pastoral Care Referral From _x__ Patient ___ Family ___ Nurse ___ Physician ___ School Bus Mechanic ___ Hunter Guide ___ Other (describe below) Sacrament/Intervention _x__ Active listening ___ Anointing ___ Confucianist _x__ Bereavement ___ Communion ___ Ivelisse exploration ___ _x__ Life review _x__ Prayer ___ Reconciliation ___ Sacrament of Sick _x__ Supportive presence ___ Wedding ___ Other (describe below) Pastoral Comments patient is welcoming and initially does not have much to say; upon asking several open ended questions about his life, the patient is able to give life review, disclose that he was one year ago, and his reason for admission to rehab; pt is tearful in several topics including loss of ; pt has a son that is very active in his care and has been very helpful to him; daughter also lives nearby and is available; pt has a orthodox connection; pt was able to articulate his feelings and thoughts when given the chance and time; prayer was welcomed
[2023-01-16 17:18] VITALS: PULSE 54
--- NOTE | 2023-01-16 20:51 | NURSING ---
Dr. Mixon contacted via telephone regarding duplicate Seroquel order requesting clarification. Order received to D/c Seroquel 12.5mg BID, start Seroquel 12.5mg DAILY at 10:00 and continue Seroquel 50mg PO QHS @ 22:00. Orders repeated back to Dr. Mixon.
[2023-01-16] MEDS: MELATONIN 3 MG TABLET PO (21:24)
[2023-01-16] MEDS: Atorvastatin Calcium 20 MG Tablet PO (21:24)
[2023-01-16] MEDS: QUEtiapine 25 MG Tablet 50 MG PO (21:25)
[2023-01-17] MEDS: Enoxaparin 40 MG/0.4 ML Syringe SC (05:05)
[2023-01-17] MEDS: Acetaminophen 500 MG Tablet 1000 MG PO ×3 (05:06→22:57)
--- NOTE | 2023-01-17 08:32 | NS ---
MST score = 1 - low risk of malnutrition
[2023-01-17] MEDS: Tamsulosin HCl 0.4 MG Capsule PO (10:27)
[2023-01-17] MEDS: Pantoprazole Sodium 20 MG Tablet PO (10:28)
[2023-01-17] MEDS: amLODIPine 10 MG Tablet PO (10:28)
[2023-01-17] MEDS: Spironolactone 25 MG Tablet PO (10:28)
[2023-01-17] MEDS: Senna/Docusate Sodium 1 Tablet PO ×2 (10:29→22:57)
[2023-01-17] MEDS: QUEtiapine 25 MG Tablet 12.5 MG PO (10:29)
[2023-01-17] MEDS: Menthol/Lanolin/Calamine/Znox 113 GM Tube 1 APPLIC TOPICAL ×2 (13:05→23:03)
[2023-01-17 14:44] VITALS: BP 151/62; PULSE 82; RESP 20; TEMP 36.5; O2SAT 99
--- NOTE | 2023-01-17 18:36 | NURSING ---
Son contacted and he is unable to take to patient to appointment on Friday. Call out to neurosurgeon office and doctor is only in Friday and Wednesdays and family only free to take on Fridays. Attempt to set up transport with [employer] and transport unable to take on Friday. Message left for office about whether to we can change appointment or pull oswaldo here and set up later follow-up with no return call. Patient made aware.
[2023-01-17 22:00] VITALS: RESP 16; O2SAT 99
[2023-01-17] MEDS: Atorvastatin Calcium 20 MG Tablet PO (22:57)
[2023-01-17] MEDS: QUEtiapine 25 MG Tablet 50 MG PO (22:57)
[2023-01-17] MEDS: MELATONIN 3 MG TABLET PO (22:58)
[2023-01-17] MEDS: Petrolatum 33% Tube 1 APPLIC TOPICAL (22:59)
[2023-01-18] MEDS: Enoxaparin 40 MG/0.4 ML Syringe SC (05:57)
[2023-01-18] MEDS: Acetaminophen 500 MG Tablet 1000 MG PO ×3 (05:57→22:55)
[2023-01-18 09:11] VITALS: BP 106/64; PULSE 73; RESP 17; TEMP 36.7; O2SAT 100
[2023-01-18] MEDS: Senna/Docusate Sodium 1 Tablet PO ×2 (09:16→22:55)
[2023-01-18] MEDS: Pantoprazole Sodium 20 MG Tablet PO (09:16)
[2023-01-18] MEDS: Tamsulosin HCl 0.4 MG Capsule PO (09:16)
[2023-01-18] MEDS: Spironolactone 25 MG Tablet PO (09:16)
[2023-01-18] MEDS: amLODIPine 10 MG Tablet PO (09:16)
[2023-01-18] MEDS: QUEtiapine 25 MG Tablet 12.5 MG PO (09:18)
[2023-01-18] MEDS: Menthol/Lanolin/Calamine/Znox 113 GM Tube 1 APPLIC TOPICAL ×2 (09:18→22:59)
--- NOTE | 2023-01-18 11:48 | RAD_ITS ---
EXAM: XR CHEST, 2 VIEWS CLINICAL INDICATION: + Mantoux test TECHNIQUE: Frontal and lateral views of the chest. COMPARISON: 01/06/2023. FINDINGS: LUNGS AND PLEURAL SPACES: Mild pulmonary hyperinflation and flattening of the hemidiaphragms. No pneumothorax. No effusion. No suspicious infiltrates. No visible calcified granulomas. HEART: Intact metallic clip in the left atrial appendage and intact aortic valve prosthesis. MEDIASTINUM: Central airways and mediastinal contour are unremarkable. BONES/JOINTS: Intact sternal wires. Old fracture of the left posterior seventh rib is unchanged. SOFT TISSUES: Unremarkable. RAD/Chest PA and Lateral IMPRESSION: 1. No suspicious acute cardiopulmonary pathology. 2. No significant interval change when compared to 01/06/2023. Electronically Signed: Balta Lamas MD at 16:17 EST ,
--- NOTE | 2023-01-18 11:52 | NURSING ---
pt noted to have hard raised red area to RT FA, dr lal updated, new order for CXR, TB quant gold, & consult infectious disease on Friday. pt without s/s TB.
[2023-01-18] MEDS: QUEtiapine 25 MG Tablet 50 MG PO (22:54)
[2023-01-18] MEDS: MELATONIN 3 MG TABLET PO (22:55)
[2023-01-18] MEDS: Atorvastatin Calcium 20 MG Tablet PO (22:55)
[2023-01-18] MEDS: Petrolatum 33% Tube 1 APPLIC TOPICAL (22:56)
[2023-01-19] MEDS: Acetaminophen 500 MG Tablet 1000 MG PO ×3 (06:51→22:54)
[2023-01-19] MEDS: Enoxaparin 40 MG/0.4 ML Syringe SC (06:51)
[2023-01-19 07:52] VITALS: BP 131/76; PULSE 88; RESP 16; TEMP 36.4; O2SAT 99
[2023-01-19] MEDS: amLODIPine 10 MG Tablet PO (07:55)
[2023-01-19] MEDS: Senna/Docusate Sodium 1 Tablet PO (07:55)
[2023-01-19] MEDS: Spironolactone 25 MG Tablet PO (07:55)
[2023-01-19] MEDS: QUEtiapine 25 MG Tablet 12.5 MG PO (07:55)
[2023-01-19] MEDS: Pantoprazole Sodium 20 MG Tablet PO (07:55)
[2023-01-19] MEDS: Tamsulosin HCl 0.4 MG Capsule PO (07:55)
[2023-01-19] MEDS: Menthol/Lanolin/Calamine/Znox 113 GM Tube 1 APPLIC TOPICAL ×2 (07:56→22:55)
--- NOTE | 2023-01-19 15:36 | NURSING ---
pt bored, offered deck of cards to play Heliospectra. pt played 3-4 games and has crossword puzzles to work on. resting in recliner chair
[2023-01-19] MEDS: Petrolatum 33% Tube 1 APPLIC TOPICAL (22:52)
[2023-01-19] MEDS: QUEtiapine 25 MG Tablet 50 MG PO (22:53)
[2023-01-19] MEDS: Atorvastatin Calcium 20 MG Tablet PO (22:54)
[2023-01-19] MEDS: MELATONIN 3 MG TABLET PO (22:54)
[2023-01-20] MEDS: Enoxaparin 40 MG/0.4 ML Syringe SC (05:30)
[2023-01-20] MEDS: Acetaminophen 500 MG Tablet 1000 MG PO ×3 (05:31→21:02)
--- NOTE | 2023-01-20 08:35 | NURSING ---
Addendum entered by Cathy Perales 01/20/23 09:00: Call from son, appt re-scheduled for 01/22/23 @11:30. Daughter will transport patient. Bracey to be removed at appt. Original Note: Spoke with staff at Dr. Willams's office. Appt for today cancelled, asked about oswaldo being removed by TCU staff. Await return call.
[2023-01-20] MEDS: Senna/Docusate Sodium 1 Tablet PO ×2 (08:53→21:01)
[2023-01-20] MEDS: Pantoprazole Sodium 20 MG Tablet PO (08:54)
[2023-01-20] MEDS: amLODIPine 10 MG Tablet PO (08:54)
[2023-01-20] MEDS: Tamsulosin HCl 0.4 MG Capsule PO (08:54)
[2023-01-20] MEDS: QUEtiapine 25 MG Tablet 12.5 MG PO (08:54)
[2023-01-20] MEDS: Spironolactone 25 MG Tablet PO (08:54)
[2023-01-20] MEDS: Menthol/Lanolin/Calamine/Znox 113 GM Tube 1 APPLIC TOPICAL ×2 (08:56→21:01)
--- NOTE | 2023-01-20 12:11 | NURSING ---
Offered covid vaccine, VIS provided. Patient refuses at this time.
--- NOTE | 2023-01-20 14:24 | CON.PCM.ID_ITS ---
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 CXR clear. TB quantiferon pending. PPD read as induration present, but I do not see a measurement listed in the EMR. No current induration. No role for treatment for latent TB given age and risk of drug reaction and interactions. Will follow as needed, thank you, d/w nursing HPI Consult Data Date of Consult: 01/20/23 HPI Narrative Reason for Consultation: (+) PPD HPI Narrative: ADA JUNE, is a 77 M who presented to TCU 01/15 after admit to [facility] for subdural hematoma bilaterally. 01/07 had bilat diana hole placement. Feeling well here at TCU. No fever, no weight loss, no night sweats, no hemoptysis. Former boss had h/o TB. Reports (+) PPD a long time ago, no prior h/o TB treatment. PPD here read over the weekend as having induration 01/18. Pt does not think it was ever raised. CXR done and quantiferon sent. Full ROS performed and neg except as noted above. 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 Lower extremity edema New onset atrial fibrillation Non-rheumatic mitral regurgitation Non-rheumatic mitral valve stenosis Non-rheumatic tricuspid valve insufficiency Nonrheumatic aortic (valve) stenosis Osteoporosis Paroxysmal atrial fibrillation Ulnar neuropathy Vitamin D deficiency Home Medications atorvastatin 20 mg tablet 20 mg PO DAILY CHOLESTEROL 04/05/19 [History Last Taken 01/14/23] cholecalciferol (vitamin D3) 125 mcg (5,000 unit) disintegrating tablet 5,000 unit PO DAILY BONES 04/05/19 [History Last Taken Unknown] lutein 20 mg capsule 20 mg PO DAILY SUPPLEMENT 05/21/21 [History Last Taken Unknown] omeprazole 20 mg capsule,delayed release 20 mg PO DAILY ACID REFLUX 10/09/21 [History Last Taken Unknown] acetaminophen 500 mg tablet 1,000 mg (2 x 500 mg) PO TID pain #0 tabs 01/29/22 [Rx Last Taken 01/15/23] warfarin 3 mg tablet (Jantoven) 3 mg PO DINNER blood thinner 30 days #30 tabs 01/29/22 [Rx Last Taken Unknown] amlodipine 5 mg tablet 5 mg PO DAILY bp 06/14/22 [History Last Taken Unknown] warfarin 5 mg tablet 5 mg PO DAILY blood thinner #120 tabs 10/29/22 [Rx Last Taken Unknown] amlodipine 10 mg tablet 10 mg PO DAILY BP 01/15/23 [History Last Taken Unknown] enoxaparin 30 mg/0.3 mL subcutaneous syringe 30 mg subcut Q12H anticoagulant 01/15/23 [History Last Taken 01/15/23] melatonin 3 mg tablet 3 mg PO QHS sleep disturbance 01/15/23 [History Last Taken 01/14/23] ondansetron 4 mg disintegrating tablet 4 mg PO Q8H PRN nausea and vomiting 01/15/23 [History Last Taken Unknown] oxycodone 5 mg tablet See Rx Instructions PO DAILY pain 01/15/23 [History Last Taken Unknown] polyethylene glycol 3350 17 gram oral powder packet (Miralax) 17 g PO DAILY PRN constipation 01/15/23 [History Last Taken 01/15/23] quetiapine 25 mg tablet 12.5 mg PO BID PRN agitation 01/15/23 [History Last Taken Unknown] quetiapine 50 mg tablet 50 mg PO QHS agitation 01/15/23 [History Last Taken Unknown] sennosides 8.6 mg tablet (Senokot) 8.6 mg PO QHS laxative 01/15/23 [History Last Taken 01/14/23] spironolactone 25 mg tablet 25 mg PO DAILY water pill 01/15/23 [History Last Taken 01/15/23] tamsulosin 0.4 mg capsule (Flomax) 0.4 mg PO DAILY prostate 01/15/23 [History Last Taken 01/15/23] Allergy/AdvReac Type Severity Reaction Status Date / Time No Known Allergies Allergy Verified 01/06/23 15:59 Family History Mother , when patient was age 14, metastatic breast cancer Breast cancer Father , age 93 , unknown cause No problems noted. Surgical History (Updated 01/15/23 @ 20:[address] Jesse Mixon MD) abdominal incisional hernia repair (2011) History of aortic valve replacement with bioprosthetic valve (~07/27/21) History of arthroplasty of right ankle History of diana hole surgery History of coronary artery bypass surgery (~07/27/21) History of mitral valve repair (~07/27/21) History of right and left heart catheterization (LHC) (~06/05/21) History of total left hip arthroplasty History of ureter repair (2010) Social History household members: none Smoking Status: Former smoker how long ago did patient quit smokin years ago alcohol intake: current alcohol intake frequency: holidays/special occasions only substance use type: does not use caffeine: Yes Type: coffee Number of servings: 4 Physical Exam Const alert, oriented x3 and no apparent distress General Appearance: cooperative HEENT HEENT Narrative: incisions on head, healing well Eyes PERRL and EOMs intact bilaterally Neck supple and No nodes Resp normal air movement and clear to auscultation bilaterally Cardio regular rate and regular rhythm GI soft to palpation, non-tender and non-distended Extremity General Extremity: Negative for edema Skin no rashes or lesions noted Neuro CN's II-XII intact bilaterally Lab / Micro Data Attestation: I reviewed the patient's lab results. 01/15/23 15:19 01/15/23 15:19
[2023-01-20 15:12] VITALS: BP 130/66; PULSE 55; RESP 18; TEMP 36.4; O2SAT 100
--- NOTE | 2023-01-20 16:35 | CASEMGMT ---
Social Work BIMS () and PHQ-2 () completed for MDS assessment. Roxanna Wiley MSW NEWBORN PHOTOGRAPHER
[2023-01-20] MEDS: Petrolatum 33% Tube 1 APPLIC TOPICAL (21:00)
[2023-01-20] MEDS: QUEtiapine 25 MG Tablet 50 MG PO (21:01)
[2023-01-20] MEDS: MELATONIN 3 MG TABLET PO (21:01)
[2023-01-21] MEDS: Atorvastatin Calcium 20 MG Tablet PO ×2 (06:02→21:33)
[2023-01-21] MEDS: Acetaminophen 500 MG Tablet 1000 MG PO ×3 (06:03→21:34)
[2023-01-21] MEDS: Enoxaparin 40 MG/0.4 ML Syringe SC (06:03)
[2023-01-21] MEDS: Spironolactone 25 MG Tablet PO (08:14)
[2023-01-21] MEDS: Tamsulosin HCl 0.4 MG Capsule PO (08:14)
[2023-01-21] MEDS: Senna/Docusate Sodium 1 Tablet PO ×2 (08:14→21:33)
[2023-01-21] MEDS: Pantoprazole Sodium 20 MG Tablet PO (08:14)
[2023-01-21] MEDS: amLODIPine 10 MG Tablet PO (08:14)
[2023-01-21] MEDS: QUEtiapine 25 MG Tablet 12.5 MG PO (08:14)
[2023-01-21] MEDS: Menthol/Lanolin/Calamine/Znox 113 GM Tube 1 APPLIC TOPICAL ×2 (08:22→21:34)
[2023-01-21 08:23] VITALS: BP 130/60; PULSE 64
--- NOTE | 2023-01-21 11:38 | CASEMGMT ---
Addendum entered by Roxanna Wiley 01/21/23 14:03: SW phoned son to update on LCD but son was with a patient and unsure if schedule will work out to call this worker back by end of day. Pt does have POC mtg at 0900 tomorrow to connect. IDT discussed DC date and is agreeable for pt to return home alone, with [facility]. Original Note: Social Work Insurance issued LCD 01/23, DC 01/24. SW spoke with pt and pt is agreeable to DC home. He has no concerns about being home alone. CHANO explained this worker will speak with IDT and family on DC recommendations and follow up with pt. Pt agreeable. Roxanna Wiley HEALTH SAFETY SPECIALIST CHEMICAL SPRAYER
[2023-01-21 12:15] VITALS: BMI 21.8
[2023-01-21 14:16] VITALS: BP 159/50; PULSE 83; RESP 16; TEMP 36.5; O2SAT 100
[2023-01-21 18:32] VITALS: BP 136/69; PULSE 64
[2023-01-21] MEDS: Petrolatum 33% Tube 1 APPLIC TOPICAL (21:30)
[2023-01-21] MEDS: MELATONIN 3 MG TABLET PO (21:33)
[2023-01-21] MEDS: QUEtiapine 25 MG Tablet 50 MG PO (21:33)
[2023-01-21 21:39] VITALS: BP 142/65; PULSE 70
[2023-01-22 05:50] LABS: Absolute Lymphocyte Count 1.26 X10^3/uL (0.83-4.51); Absolute Neutrophil Count 3.3 X10^3/uL (2.0-7.7); Basophil# 0.06 X10^3/uL; Basophil% 1.1 % (0-1); Eosinophil# 0.13 X10^3/uL; Eosinophils% 2.4 % (0-5); Hematocrit 30.5 % (40-54); Hemoglobin 9.4 g/dL (13.0-16.5); Lymphocyte # 1.26 X10^3/ul (0.83-4.51); Lymphocyte % 23.6 % (19-41); Mean Corp Hgb Conc 30.8 g/dL (32-36); Mean Corpuscular Hgb 28.7 pg (27.0-32.0); Mean Corpuscular Volume 93.3 fL (80-94); Mean Platelet Vol. 9.2 fl (6.2-12.0); Monocyte# 0.55 X10^3/uL; Monocyte% 10.3 % (0-10); NRBC Flagged by Analyzer 0 % (0-5); Neutrophil # 3.32 X10^3/uL (2.7-7.7); Platelet Count 224 K/mm3 (150-450); RBC Distribution Width CV 13.4 % (11.6-14.6); RBC Distribution Width SD 45.9 fl (35.1-43.9); Red Blood Count 3.27 M/mm3 (4.6-6.2); White Blood Count 5.4 K/mm3 (4.4-11.0)
[2023-01-22] MEDS: Acetaminophen 500 MG Tablet 1000 MG PO ×2 (05:57→20:30)
[2023-01-22] MEDS: Enoxaparin 40 MG/0.4 ML Syringe SC (05:57)
[2023-01-22 06:14] LABS: Anion Gap 5 (5-15); BUN 23 mg/dL (7-18); BUN/Creat Ratio 26.3 RATIO (10-20); Calcium,Total 8.3 mg/dL (8.5-10.1); Chloride 107 mmol/L (98-107); Creatinine, Serum 0.88 mg/dL (0.70-1.30); EST Glomerular Filtration Rate 89 mL/min (>60); Est Glom Filt Rate - Afr Amer 108 mL/min (>60); Estimated Creatinine Clearance 76.29 ml/min; Glucose 96 mg/dL (74-106); Sodium Level 139 mmol/L (136-145)
--- NOTE | 2023-01-22 08:36 | NURSING ---
Optician Apprentice Dispensing Note; MDS for 01/22/2023
--- NOTE | 2023-01-22 09:08 | CASEMGMT ---
Addendum entered by Roxanna Wiley 01/22/23 18:06: Children and pt spoke and requesting DC 01/23. IDT agreeable. [facility] can accept with SOC 01/27. Son agreeable. Plan: DC 01/23 Original Note: Social Work IDT met with patient and son for care plan meeting. Discussed patient's progress in PT/OT/ST/SN. Confirmed [facility] issued DC 01/24. SW inquired about DC plans. Son would like pt to DC to [place]. SW asked pt about preference. Pt stated he is open to AL. Son repeated concerns about pt's choices with finances, etc. SW reiterated pt has proven that he can make his own decisions regardless if others agree with those decisions, and son/dtr has no liability to those decisions. Pt has expressed consequences and wants to improve. IDT agrees AL would benefit pt but also does not have major concerns with pt returning home alone. SW offered to assist with AL referrals, but realistically with the holiday, pt will likely not be placed to AL at [place]. Son expressed understanding and wants pt to tour AL before making a decision. Pt and son agreed to skilled HHC but son wants to ensure there is not a lagg in SOC. SW noted pt used [facility] prior and son/pt is agreeable to [facility], pending SOC date. If not, SW can contact other [facility] agencies that are INN with insurance. SW agreed. SW phoned referral to [facility] PT/OT/ST/[place]/SW. No DME needs. Plan: DC home 01/24, [facility] PT/OT/ST/[place]/SW Roxanna Wiley, GLORIA OWENSW
[2023-01-22] MEDS: Tamsulosin HCl 0.4 MG Capsule PO (09:27)
[2023-01-22] MEDS: Pantoprazole Sodium 20 MG Tablet PO (10:27)
[2023-01-22] MEDS: QUEtiapine 25 MG Tablet 12.5 MG PO (10:28)
[2023-01-22] MEDS: Senna/Docusate Sodium 1 Tablet PO ×2 (10:28→20:29)
[2023-01-22] MEDS: Spironolactone 25 MG Tablet PO (10:28)
[2023-01-22] MEDS: amLODIPine 10 MG Tablet PO (10:28)
[2023-01-22] MEDS: Menthol/Lanolin/Calamine/Znox 113 GM Tube 1 APPLIC TOPICAL ×2 (10:32→20:28)
--- NOTE | 2023-01-22 12:54 | NURSING ---
Dtr picked pt up at 10:30 for f/u neuro appt in [facility].
--- NOTE | 2023-01-22 15:03 | DS.PCM_ITS ---
Providers Date of Admission: 01/15/23 Primary Care Physician: Dr. Jneelle Oconnell MD Consultations 01/18/23 11:48 Consult: Infectious Disease Routine Consulting Provider: Hari Ashby Reason for Consult: + TB mantoux test EMERGENT Consult: No MD Notified: Yes Date Notified: 01/18/23 Time Notified: 11:49 Method of Notification: Text Reason For Visit: SUBDURAL HEMATOMA Diagnosis Discharge Diagnosis (1) PPD positive: Status: Acute Code(s): R76.11 - Nonspecific reaction to tuberculin skin test without active tub erculosis Plan 77 year old male with below past medical history hospitalized for bilateral SDH, underwent diana hole evacuation 01/07/2023, complicated by delirium, hypertension, admitted to TCU with debility, here for rehabilitation, strengthening, prior to discharge to assisted living. * Debility - PT/OT. * Dysphagia - ST. * Pain - Tylenol 1000mg tid, Oxycodone 2.5-5mg daily. * Bowel - Miralax 17gm daily prn, senna/colace 1 tablet bid, Magnesium citrate 300ml daily prn. * Adult immunization - Administer pneumonia vaccine, covid vaccine, flu vaccine as appropriate. * DVT prophylaxis - Lovenox 40mg sc daily. * Hypertension - Amlodipine 10mg daily. * Hyperlipidemia - Atorvastatin 20mg qhs. * Insomnia - Melatonin 3mg qhs. * Skin irritation - Calmoseptine topical bid, Eucerin topical WHs. * Nausea - Zofran 4mg q8h prn. * GERD - Pantoprazole 20mg daily. * Hypoactive delirium - Seroquel 50mg qhs, 12.5mg bid prn, GDR as tolerated. * Heart failure reduced ejection fraction - Aldactone 25mg daily. * BPH - Tamsulosin 0.4mg daily. Medications at Discharge Home Medications atorvastatin 20 mg tablet 20 mg PO DAILY CHOLESTEROL 04/05/19 omeprazole 20 mg capsule,delayed release 20 mg PO DAILY ACID REFLUX 10/09/21 melatonin 3 mg tablet 3 mg PO QHS sleep disturbance 01/15/23 Petrolatum 33% [Eucerin Eqivalent] 1 applic topical QHS ##0 01/22/23 acetaminophen 500 mg tablet 1,000 mg (2 x 500 mg) PO TID #0 tabs 01/22/23 amlodipine 10 mg tablet 10 mg PO DAILY 30 days #30 tabs 01/22/23 menthol 0.44 %-zinc oxide 20.6 % topical ointment (Calmoseptine) 1 applic topical BID #0 grams 01/22/23 quetiapine 25 mg tablet 12.5 mg (1/2 x 25 mg) PO QAM@1000 30 days #30 tabs 01/22/23 quetiapine 25 mg tablet 50 mg (2 x 25 mg) PO QHS 30 days #60 tabs 01/22/23 spironolactone 25 mg tablet 25 mg PO DAILY 30 days #30 tabs 01/22/23 tamsulosin 0.4 mg capsule 0.4 mg PO DAILY@0830 30 days #30 caps 01/22/23 Hospital Course Operations - (See below.) Procedures None Summary of Care Provided Minutes Spent on Discharge: 35 Hospital Course: 77 year old male with below past medical history hospitalized for bilateral SDH, underwent diana hole evacuation 01/07/2023, complicated by delirium, hypertension, admitted to TCU with debility, here for rehabilitation, strengthening, prior to discharge to assisted living. Resident PPD +, no symptoms, Chest X-ray negative, TB Gold quant pending, Dr. Ashby (ID) recommend no treatment for latent TB. Discharge home 01/23/2023, [facility] PT/OT/ST/[place]/SW. Physical Exam Const alert, oriented x3 and no apparent distress General Appearance: cooperative HEENT HEENT Narrative: incisions on head, healing well Eyes PERRL and EOMs intact bilaterally Neck supple and No nodes Resp normal air movement and clear to auscultation bilaterally Cardio regular rate and regular rhythm GI soft to palpation, non-tender and non-distended Extremity General Extremity: Negative for edema Skin no rashes or lesions noted Neuro CN's II-XII intact bilaterally Weight / BMI Weight Weight: 79.243 kg Body Mass Index (BMI) 21.8 ABG / Lab / Microbiology Data 01/22/23 05:19 01/22/23 05:19 Laboratory: Laboratory Results - last 24 hr 01/22/23 05:19: WBC 5.4, RBC 3.27 L, Hgb 9.4 L, Hct 30.5 L, MCV 93.3, MCH 28.7, MCHC 30.8 L, RDW Std Deviation 45.9 H, RDW Coeff of [place]ay[place] 13.4, Plt Count 224, MPV 9.2, Immature Gran % (Auto) 0.600, Neut % (Auto) 62.0, Lymph % (Auto) 23.6, [place] % (Auto) 10.3 H, Eos % (Auto) 2.4, Baso % (Auto) 1.1 H, Absolute Neuts (auto) 3.3, Absolute Lymphs (auto) 1.26, Nucleated RBC % 0, Sodium 139, Potassium 4.0, Chloride 107, Carbon Dioxide 27.0, Anion Gap 5, BUN 23 H, Creatinine 0.88, Estim Creat Clear Calc 76.29, Est GFR (MDRD) Af Amer 108, Est GFR (MDRD) Non-Af 89, BUN/Creatinine Ratio 26.3 H, Glucose 96, Calcium 8.3 L D/C Instructions Discharge Diet: No restrictions Discharge Activity: Return to Normal Activity, May Shower and Use Walker Weight Bearing Status: Weight bearing as tolerated Call your doctor if you observe: Fever of 101 or Higher, Inability to urinate, Inability to have a bowel movement, Shortness of breath, Dizziness, Fainting spells, Swelling in the ankles, Chest pain and Uncontrolled pain Additional Instructions: Discharge home 01/23/2023, [facility] PT/OT/ST/[place]Y/SW. Please Follow Up With: Dr. Vaishnavi Willams When: As scheduled. Meaningful Use Info Meaningful Use Diagnoses (Choose all that apply): None applicable Discharge Plan Admission Admit Date/Time: 01/15/23 13:26 Primary Reason for Your Visit: Debility. Attending Provider: Jesse Mixon Chi Primary Care Provider: Jenelle Oconnell Consulting Providers: Hari Ashby Instructions Additional Instructions / Restrictions: Discharge home 01/23/2023, [facility] PT/OT/ST/[place]/SW. Discharge Orders/Prescriptions Prescriptions: New acetaminophen 500 mg Tablet 1,000 mg PO TID Qty: 0 0RF quetiapine 25 mg Tablet 50 mg PO QHS 30 Days Qty: 60 0RF spironolactone 25 mg Tablet 25 mg PO DAILY 30 Days Qty: 30 0RF tamsulosin 0.4 mg Capsule 0.4 mg PO DAILY@0830 30 Days Qty: 30 0RF amlodipine 10 mg Tablet 10 mg PO DAILY 30 Days Qty: 30 0RF menthol-zinc oxide [Calmoseptine] 0.44-20.6 % Ointment 1 applic topical BID Qty: 0 0RF Protocol: *Topical Application Instructions APPLICATION INSTRUCTIONS: bilateral buttocks quetiapine 25 mg Tablet 12.5 mg PO QAM@1000 30 Days Qty: 30 0RF Petrolatum 33% [Eucerin Eqivalent] 1 applic topical QHS Qty: 0 0RF Continued atorvastatin 20 mg tablet 20 mg PO DAILY omeprazole 20 mg capsule,delayed release(DR/EC) 20 mg PO DAILY melatonin 3 mg tablet 3 mg PO QHS Discontinued cholecalciferol (vitamin D3) 5,000 unit tablet,disintegrating 5,000 unit PO DAILY Hold Instructions: on hold lutein 20 mg capsule 20 mg PO DAILY Hold Instructions: hold Rx Instructions: give with meal/snack amlodipine 5 mg tablet 5 mg PO DAILY Hold Instructions: on hold acetaminophen 500 mg Tablet 1,000 mg PO TID Qty: 0 0RF warfarin [Jantoven] 3 mg Tablet 3 mg PO DINNER 30 Days Qty: 30 0RF Hold Instructions: hold spironolactone 25 mg tablet 25 mg PO DAILY Patient Comments: take 1 tablet by mouth once daily enoxaparin 30 mg/0.3 mL syringe 30 mg subcut Q12H ondansetron 4 mg tablet,disintegrating 4 mg PO Q8H PRN (Reason: nausea and vomiting) amlodipine 10 mg tablet 10 mg PO DAILY oxycodone 5 mg tablet See Rx Instructions PO DAILY Patient Comments: moderate pain 4-6 severe pain 7-10 Rx Instructions: orally daily; 2.5-5 mg daily; polyethylene glycol 3350 [Miralax] 17 gram powder in packet 17 g PO DAILY PRN (Reason: constipation) quetiapine 25 mg tablet 12.5 mg PO BID PRN (Reason: agitation) quetiapine 50 mg tablet 50 mg PO QHS sennosides [Senokot] 8.6 mg tablet 8.6 mg PO QHS tamsulosin [Flomax] 0.4 mg capsule 0.4 mg PO DAILY Referrals / Follow Up: Jenelle Oconnell MD [Primary Care Provider] - Disposition Disposition (needs filled in before D/C Order can be placed): Home Health Service
[2023-01-22 16:00] VITALS: BP 141/59; PULSE 86; RESP 16; TEMP 36.3; O2SAT 100
[2023-01-22] MEDS: Petrolatum 33% Tube 1 APPLIC TOPICAL (20:28)
[2023-01-22] MEDS: QUEtiapine 25 MG Tablet 50 MG PO (20:29)
[2023-01-22] MEDS: MELATONIN 3 MG TABLET PO (20:30)
[2023-01-22] MEDS: Atorvastatin Calcium 20 MG Tablet PO (20:30)
--- NOTE | 2023-01-22 20:32 | NURSING ---
HS medications administered at this time per pt. request
[2023-01-22 22:00] VITALS: PULSE 55; RESP 16; O2SAT 95
[2023-01-23] MEDS: Enoxaparin 40 MG/0.4 ML Syringe SC (06:20)
[2023-01-23] MEDS: Acetaminophen 500 MG Tablet 1000 MG PO (06:20)
[2023-01-23 06:33] VITALS: PULSE 62; RESP 18; O2SAT 98
[2023-01-23 07:33] LABS: Hematocrit 32.6 % (40-54); Hemoglobin 9.8 g/dL (13.0-16.5)
[2023-01-23 09:54] VITALS: BP 152/68; PULSE 76; RESP 16; TEMP 36.3; O2SAT 100
[2023-01-23] MEDS: Tamsulosin HCl 0.4 MG Capsule PO (09:58)
[2023-01-23] MEDS: Senna/Docusate Sodium 1 Tablet PO (09:58)
[2023-01-23] MEDS: amLODIPine 10 MG Tablet PO (09:58)
[2023-01-23] MEDS: QUEtiapine 25 MG Tablet 12.5 MG PO (09:58)
[2023-01-23] MEDS: Pantoprazole Sodium 20 MG Tablet PO (09:58)
[2023-01-23] MEDS: Spironolactone 25 MG Tablet PO (09:58)
[2023-01-23 11:08] LABS: QNTFERON TB Mitogen Value > 10.00 IU/mL (.); QNTFERON TB Nil Value 0.37 IU/mL (.); QNTFERON TB1+ Ag Value 0.29 IU/mL (.); QNTFERON TB2+ Ag Value 0.53 IU/mL (.); QNTIFERON TB Positive Criteria Negative (Negative)
[2023-01-23] MEDS: Menthol/Lanolin/Calamine/Znox 113 GM Tube 1 APPLIC TOPICAL (11:19)
--- NOTE | 2023-01-28 08:31 | MDS.RN ---
Information for the mds was obtained from review of the clinical record, interview of resident, staff, and direct obseration of resident's care.
== END 2023-01-23 13:22 | disposition home health service (06) | DRG 949 ==
PROVIDERS: Admitting Provider Family Medicine Geriatric Medicine; PCP Family Medicine; Visit Provider Family Medicine Geriatric Medicine
DX: S06.5X0D Traumatic subdural hemorrhage without loss of consciousness, subsequent encounter (principal); I50.22 Chronic systolic (congestive) heart failure; I11.0 Hypertensive heart disease with heart failure; E11.9 Type 2 diabetes mellitus without complications; Z95.2 Presence of prosthetic heart valve; I48.0 Paroxysmal atrial fibrillation; I25.10 Atherosclerotic heart disease of native coronary artery without angina pectoris; K21.9 Gastro-esophageal reflux disease without esophagitis; E78.5 Hyperlipidemia, unspecified; W19.XXXD Unspecified fall, subsequent encounter; Z79.01 Long term (current) use of anticoagulants; Z87.891 Personal history of nicotine dependence; Z79.899 Other long term (current) drug therapy; N40.0 Benign prostatic hyperplasia without lower urinary tract symptoms; R41.0 Disorientation, unspecified
CPT/HCPCS: 36415; 71046; 80048; 85014; 85018; 85025; 86480; 92523; 92526; 92610; 97110; 97116; 97129; 97130; 97162; 97166; 97530; 97535; 97802

== ENCOUNTER 2023-04-02 10:53 | Observation (INO) | payer MEDICARE, SELFPAY ==
[2023-04-02 10:54] VITALS: BP 181/65; PULSE 72; RESP 18; TEMP 36.7; O2SAT 93
--- NOTE | 2023-04-02 11:10 | RAD_ITS ---
STUDY: X-RAY - LEFT SHOULDER REASON FOR EXAM: Male, 77 years old. FALL TECHNIQUE: 3 view(s) of the shoulder. COMPARISON: None. FINDINGS: Normal glenohumeral articulation. There is degenerative arthrosis of the acromioclavicular joint without inferior osseous spur formation. Normal acromion. Impression impacted fracture of the humeral surgical neck involving the greater and lesser tuberosities. Soft tissue swelling. Prior aortic and mitral valve replacement. RAD/Shoulder min 2 Views IMPRESSION: Impacted fracture through the surgical neck of the humerus with involvement of the lesser and greater tuberosities. Electronically Signed: Jake Caceres MD at 11:33 EST ,
[2023-04-02 12:23] VITALS: BMI 25.0
[2023-04-02 12:26] VITALS: BP 173/84; PULSE 62; RESP 18; O2SAT 96
--- NOTE | 2023-04-02 13:20 | CT_ITS ---
STUDY: CT BRAIN WITHOUT CONTRAST REASON FOR EXAM: Male, 77 years old. Fall, head injury, recent SDH RADIATION DOSAGE (If Supplied By Facility): CTDIvol = ( 44.99 ) mGy, DLP = ( 748.30 ) mGycm TECHNIQUE: Transaxial CT imaging of the brain was performed without administration of intravenous contrast material. Individualized dose optimization techniques were used for this CT. COMPARISON: Comparison is made with prior study dated January 06, 2023. FINDINGS: Normal soft tissue structures. There is evidence of bilateral frontal diana holes. There is mild cerebral atrophy with widening of the extra-axial spaces and ventricular dilatation. There are areas of decreased attenuation within the white matter tracts of the supratentorial brain, consistent with microvascular disease changes. Minimal residual chronic right subdural hematoma overlying the right frontal parietal lobes. Normal basal ganglia and thalami. Normal brainstem. Normal cerebellum. There is no intracranial hemorrhage. There are no findings of an acute ischemic infarction. Normal visualized paranasal sinuses. CT/Brain/Head without Contrast IMPRESSION: Chronic involutional changes of the brain. 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 Electronically Signed: Jake Caceres MD at 14:24 EST ,
--- NOTE | 2023-04-02 13:20 | CT_ITS ---
STUDY: CT CERVICAL SPINE WITHOUT CONTRAST REASON FOR EXAM: Male, 77 years old. Fall, trauma RADIATION DOSAGE (If Supplied By Facility): CTDIvol = ( 26.23 ) mGy, DLP = ( 568.23 ) mGycm TECHNIQUE: High resolution transaxial imaging was performed without contrast material. Sagittal and coronal images were reconstructed. Individualized dose optimization techniques were used for this CT. COMPARISON: None FINDINGS: Normal craniovertebral junction. There are degenerative changes of the anterior atlantoaxial articulation. Normal odontoid process. Normal cervical lordosis. Normal vertebral bodies and posterior osseous elements. C2-3: Normal endplates. Normal disc height and morphology. Normal central canal and intervertebral neuroforamina. C3-4: Normal endplates. Normal disc height and morphology. Normal central canal and intervertebral neuroforamina. C4-5: Mild degree of disc space narrowing. Uncovertebral arthrosis. Moderate degree of right neural foraminal stenosis. Right facet joint osteoarthritis. C5-6: Mild degree of disc space narrowing. Spondylosis. Uncovertebral arthrosis. Mild degree of bilateral neural foraminal stenosis worse on the right side. C6-7: Mild degree of disc space narrowing. Spondylosis. C7-T1: Normal endplates. Normal disc height and morphology. Normal central canal and intervertebral neuroforamina. Atherosclerotic calcification of the carotid bifurcations. CT/Spine Cervical without Contras IMPRESSION: Multilevel degenerative changes, as described above. Electronically Signed: Jake Caceres MD at 14:25 EST ,
--- NOTE | 2023-04-02 13:21 | EX.ED.GENINJ ---
HPI History of Present Illness Chief Complaint: Fall Detail of Chief Complaint: Fall with injury to left upper arm Informant: patient Narrative Narrative: Patient presents to the emergency department with complaint of a fall that occurred prior to arrival in the emergency department. Patient states that he had gotten up to go to the bathroom and on the way back to the recliner started feeling woozy and felt like he might pass out and before he could sit down started falling backwards and fell onto his left side. He does not think he hit his head but he is not sure. Patient in January had a fall with intracranial hemorrhage requiring surgical intervention. Patient denies any other significant injuries. He is not on blood thinners. Denies recent illness. Currently does not have chest pain or dizziness. [facility] Medical History Atherosclerotic heart disease of [place] coronary artery without angina pectoris Caregiver stress Depression Diabetes mellitus, type II Essential hypertension GERD (gastroesophageal reflux disease) Hydronephrosis Hyperlipidemia [facility] current use of anticoagulant Lower extremity edema New onset atrial fibrillation Non-rheumatic mitral regurgitation Non-rheumatic mitral valve stenosis Non-rheumatic tricuspid valve insufficiency Nonrheumatic aortic (valve) stenosis Osteoporosis Paroxysmal atrial fibrillation Ulnar neuropathy Vitamin D deficiency Home Medications atorvastatin 20 mg tablet 20 mg PO QHS CHOLESTEROL 04/05/19 [History Last Taken 04/01/23] omeprazole 20 mg capsule,delayed release 20 mg PO QHS ACID REFLUX 10/09/21 [History Last Taken 04/01/23] quetiapine 25 mg tablet 50 mg (2 x 25 mg) PO QHS MOOD 30 days #60 tabs 01/22/23 [Rx Last Taken 04/01/23] acetaminophen 500 mg tablet (Acetaminophen Extra Strength) 1,000 mg PO TID PRN PAIN 04/02/23 [History Last Taken Unknown] amlodipine 5 mg tablet 5 mg PO QHS BLOOD PRESSURE 04/02/23 [History Last Taken 04/01/23] cholecalciferol (vitamin D3) 125 mcg (5,000 unit) capsule 125 mcg PO QHS SUPPLEMENT 04/02/23 [History Last Taken 04/01/23] melatonin 3 mg tablet 3 mg PO QHS SLEEP 04/02/23 [History Last Taken 04/01/23] spironolactone 25 mg tablet 25 mg PO QHS BLOOD PRESSURE 04/02/23 [History Last Taken 04/01/23] Allergy/AdvReac Type Severity Reaction Status Date / Time No Known Allergies Allergy Verified 04/02/23 10:54 Family History Mother , when patient was age 14, metastatic breast cancer Breast cancer Father , age 93 , unknown cause No problems noted. Surgical History abdominal incisional hernia repair (2011) History of aortic valve replacement with bioprosthetic valve (~07/27/21) History of arthroplasty of right ankle History of diana hole surgery History of coronary artery bypass surgery (~07/27/21) History of mitral valve repair (~07/27/21) History of right and left heart catheterization (LHC) (~06/05/21) History of total left hip arthroplasty History of ureter repair (2010) Social History household members: none Smoking Status: Former smoker how long ago did patient quit smokin years ago alcohol intake: current alcohol intake frequency: holidays/special occasions only substance use type: does not use caffeine: Yes Type: coffee Number of servings: 4 ROS ROS ED Review of Systems ROS Unobtainable: other Constitutional Constitutional ED: Reports lethargy; Denies chills, fever(s), sweats or weight loss Eyes Eyes: Denies blurry vision, change in vision or diplopia ENT ENT ED: Denies rhinorrhea or sore throat Cardiovascular Cardiovascular: Denies chest pain, orthopnea or racing heartbeat Respiratory/Chest Respiratory/Chest: Denies cough, dyspnea, dyspnea on exertion, orthopnea or sputum Gastrointestinal Gastrointestinal: Denies abdominal pain, diarrhea, nausea or vomiting Genitourinary Genitourinary ED: Denies dysuria, hematuria or urinary frequency Musculoskeletal Musculoskeletal: Reports other Details: Left shoulder injury/pain ; Denies arthralgias, back pain, myalgias or neck pain Integumentary Denies abscess, Abrasions or rash Neurologic Neurologic: Denies headache(s) or weakness Psychiatric Psychiatric: Denies anxiety, depression or suicidal thoughts Endocrine Endocrinology: Denies polydipsia, polyphagia or polyuria Hematologic/Lymphatic Hematologic/Lymphatic: Denies easy bleeding, easy bruising or lymphadenopathy Allergic/Immunologic Allergic/Immunologic ED: Denies mouth swelling, tongue swelling or urticaria EXAM Physical Exam Const Vital Signs: 04/02/23 10:54 04/02/23 12:24 04/02/23 12:26 Temperature 98.1 F Temperature Source Temporal Pulse Rate 72 62 Respiratory Rate 18 18 Respiratory Effort Normal Non-Labored Blood Pressure 181/65 H 173/84 H Blood Pressure Mean 103 113 Pulse Ox 93 96 Oxygen Delivery Method Room Air Room Air 04/02/23 15:50 Temperature Temperature Source Pulse Rate 87 Respiratory Rate 16 Respiratory Effort Blood Pressure 139/88 H Blood Pressure Mean 105 Pulse Ox 95 Oxygen Delivery Method Room Air Positive well nourished and well developed General Appearance ED: well developed and NAD HEENT Reports TM's clear and moist mucous membranes normocephalic and atraumatic; Negative for trauma or tenderness Tympanic Membrane ED: Yes TM's clear Eyes PERRL and EOMs intact bilaterally General Eye ED: Negative for pale conjunctiva or scleral icterus Neck no lymphadenopathy, supple and no JVD Neck Narrative: Mild diffuse tenderness. No bony step-offs. General: tenderness Chest Wall inspection of chest normal and palpation of chest normal Chest: Negative for tenderness Resp normal respiratory effort and clear to auscultation bilaterally Effort and Inspection: Negative for respiratory distress or pain with movement Auscultation: Negative for rhonchi, wheezes or diminished lung sounds Cardio regular rate, regular rhythm, S1 normal heart sound, S2 normal heart sound and no murmurs Peripheral Pulses: pulses 2+ throughout GI normal to inspection, nondistended, normoactive bowel sounds, soft to palpation, non-tender, non-distended and no masses Back/Spine no CVA tenderness and no thoracic nor lumbar tenderness Extremity Extremity Narrative: Patient with tenderness over the left proximal humerus. No significant ecchymosis or bruising noted. He is a limited range of motion secondary to pain. He is neurovascular intact distally. General Extremety ED: Negative for edema General Extremity: Negative for edema Neuro oriented x3, CN's II-XII intact bilaterally, no sensory deficits noted and gait normal Sensorium / Orientation: awake, alert, oriented to person, oriented to place and oriented to time Motor Exam: strength 5/5 throughout and strength abnormal Psych mental status grossly normal Skin no rashes or lesions noted and no wounds MDM MDM MDM Narrative Medical decision making narrative: Patient presents via EMS from home. He had a fall with injury to the left arm. Patient lives alone independently. Nursing staff ordered x-rays of his left shoulder before I could evaluate the patient via protocol. X-rays showed a impacted proximal humerus fracture without evidence of dislocation. I did order a CT scan of the brain without contrast that showed some small residual chronic hematoma without evidence of new bleed. CT C-spine showed chronic age-related changes but no fractures. CBC with differential count of 12.9 with hemoglobin of 9.7 and platelet count of 191. Chemistries unremarkable. Troponin normal at 11. EKG obtained on arrival showed atrial fibrillation with PVCs and no acute ST segment changes. We attempted to ambulate patient and he is very unstable on his feet and his further risk for falls and he lives alone. He was placed in a sling. He will require admission for pain control and possible placement to rehab facility or extended care facility. Lab Data Attestation: I reviewed the patient's lab results. Labs: Laboratory Results - last 24 hr 04/02/23 13:24 WBC 12.9 H RBC 3.47 L Hgb 9.7 L Hct 31.4 L MCV 90.5 MCH 28.0 MCHC 30.9 L RDW Std Deviation 44.3 H RDW Coeff of Elayne 13.4 Plt Count 191 MPV 10.3 Immature Gran % (Auto) 0.500 Neut % (Auto) 82.9 H Lymph % (Auto) 8.6 L [place] % (Auto) 7.7 Eos % (Auto) 0.1 Baso % (Auto) 0.2 Absolute Neuts (auto) 10.7 H Absolute Lymphs (auto) 1.11 Nucleated RBC % 0 Sodium 141 Potassium 4.2 Chloride 114 H Carbon Dioxide 23.0 Anion Gap 4 L BUN 24 H Creatinine 1.14 Estim Creat Clear Calc 62.80 Est GFR (MDRD) Af Amer 80 Est GFR (MDRD) Non-Af 66 BUN/Creatinine Ratio 21.1 H Glucose 151 H Calcium 8.3 L Troponin I High Sens 11 Radiography Diagnostic Testing: Clinical Impression(s) from Imaging Studies Shoulder X-Ray 04/02/23 11:10 IMPRESSION: Impacted fracture through the surgical neck of the humerus with involvement of the lesser and greater tuberosities. Electronically Signed: Jake Caceres MD at 11:33 EST , Brain CT 04/02/23 13:20 IMPRESSION: Chronic involutional changes of the brain. 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 Electronically Signed: Jake Caceres MD at 14:24 EST , Cervical Spine CT 04/02/23 13:20 IMPRESSION: Multilevel degenerative changes, as described above. Electronically Signed: Jake Caceres MD at 14:25 EST , EKG Initial EKG: Attestation: I personally reviewed and interpreted this EKG as follows: Comments: Atrial fibrillation with rate of 73 bpm with old anterior septal infarct, no acute ST segment changes. Discharge Plan Dx/Rx/DC Orders Clinical Impression: Generalized weakness, Fall, Fracture of humerus, proximal, left, closed Disposition Disposition: Acute Care [facility]
[2023-04-02] MEDS: fentaNYL 100 MCG/2 ML Ampul 50 MCG IV (13:27)
[2023-04-02 13:37] LABS: Absolute Lymphocyte Count 1.11 X10^3/uL (0.83-4.51); Absolute Neutrophil Count 10.7 X10^3/uL (2.0-7.7); Basophil# 0.02 X10^3/uL; Basophil% 0.2 % (0-1); Eosinophil# 0.01 X10^3/uL; Eosinophils% 0.1 % (0-5); Hematocrit 31.4 % (40-54); Hemoglobin 9.7 g/dL (13.0-16.5); Lymphocyte # 1.11 X10^3/ul (0.83-4.51); Lymphocyte % 8.6 % (19-41); Mean Corp Hgb Conc 30.9 g/dL (32-36); Mean Corpuscular Volume 90.5 fL (80-94); Mean Platelet Vol. 10.3 fl (6.2-12.0); Monocyte# 0.99 X10^3/uL; Monocyte% 7.7 % (0-10); NRBC Flagged by Analyzer 0 % (0-5); Neutrophil # 10.73 X10^3/uL (2.7-7.7); Neutrophil % 82.9 % (47-70); Platelet Count 191 K/mm3 (150-450); RBC Distribution Width CV 13.4 % (11.6-14.6); RBC Distribution Width SD 44.3 fl (35.1-43.9); Red Blood Count 3.47 M/mm3 (4.6-6.2); White Blood Count 12.9 K/mm3 (4.4-11.0)
[2023-04-02 13:59] LABS: Anion Gap 4 (5-15); BUN 24 mg/dL (7-18); BUN/Creat Ratio 21.1 RATIO (10-20); Calcium,Total 8.3 mg/dL (8.5-10.1); Chloride 114 mmol/L (98-107); Creatinine, Serum 1.14 mg/dL (0.70-1.30); EST Glomerular Filtration Rate 66 mL/min (>60); Est Glom Filt Rate - Afr Amer 80 mL/min (>60); Glucose 151 mg/dL (74-106); Potassium 4.2 mmol/L (3.5-5.1); Sodium Level 141 mmol/L (136-145); Troponin-I HS 11 pg/mL (3.0-78.0)
[2023-04-02 15:50] VITALS: BP 139/88; PULSE 87; RESP 16; O2SAT 95
[2023-04-02] MEDS: fentaNYL 100 MCG/2 ML Ampul 25 MCG IV (16:03)
--- NOTE | 2023-04-02 16:16 | NURSING ---
MED SURG MCCLURE FALL, LEFT PROXIMAL HUMERUS FRACTURE, WEAKNESS, DISEQUILIBRIUM
--- NOTE | 2023-04-02 16:45 | PCM.HP.STD ---
HPI - General General Date of Admission: 04/02/23 Date of Service: 04/02/23 Chief Complaint: Fall HPI Narrative ADA JUNE, is a 77 M w/ hx of diabetes, GERD, hypertension, CHF, A-fib and previous fall in January with intracranial hemorrhage requiring surgical intervention who presented to [facility] ED 04/02/2023 with a fall and striking left arm. Patient got up to go to the bathroom and when he left the bathroom and was walking back to his chair he felt woozy and like he might pass out but before he could sit down he fell backwards and onto his left side and denies injuring any other part of him. In the ED patient had x-ray which showed impacted proximal humerus fracture without evidence of dislocation, CT of the brain without contrast showed some residual chronic hematoma without evidence of new bleed. Patient in ED was weak and unsteady on his feet and given that he lives alone hospitalist contacted for admission for pain control and possible placement. Patient evaluated in ED and he reports history as above, reports occasionally he will feel a little bit dizzy but today it was when he got up to walk back to his chair, as soon as he got to the floor he no longer had any of the symptoms, denied any other symptoms whatsoever at that time. Has not had any recurrence of symptoms in the ED and primary complaint is pain in the left shoulder, denies any numbness tingling or pain anywhere other than his shoulder. Patient does not feel safe to go home at this time. [facility], [facility] Medical History Atherosclerotic heart disease of [place] coronary artery without angina pectoris Caregiver stress Depression Diabetes mellitus, type II Essential hypertension GERD (gastroesophageal reflux disease) Hydronephrosis Hyperlipidemia nursing home current use of anticoagulant Lower extremity edema New onset atrial fibrillation Non-rheumatic mitral regurgitation Non-rheumatic mitral valve stenosis Non-rheumatic tricuspid valve insufficiency Nonrheumatic aortic (valve) stenosis Osteoporosis Paroxysmal atrial fibrillation Ulnar neuropathy Vitamin D deficiency Home Medications atorvastatin 20 mg tablet 20 mg PO QHS CHOLESTEROL 04/05/19 [History Last Taken 04/01/23] omeprazole 20 mg capsule,delayed release 20 mg PO QHS ACID REFLUX 10/09/21 [History Last Taken 04/01/23] quetiapine 25 mg tablet 50 mg (2 x 25 mg) PO QHS MOOD 30 days #60 tabs 01/22/23 [Rx Last Taken 04/01/23] acetaminophen 500 mg tablet (Acetaminophen Extra Strength) 1,000 mg PO TID PRN PAIN 04/02/23 [History Last Taken Unknown] amlodipine 5 mg tablet 5 mg PO QHS BLOOD PRESSURE 04/02/23 [History Last Taken 04/01/23] cholecalciferol (vitamin D3) 125 mcg (5,000 unit) capsule 125 mcg PO QHS SUPPLEMENT 04/02/23 [History Last Taken 04/01/23] melatonin 3 mg tablet 3 mg PO QHS SLEEP 04/02/23 [History Last Taken 04/01/23] spironolactone 25 mg tablet 25 mg PO QHS BLOOD PRESSURE 04/02/23 [History Last Taken 04/01/23] Allergy/AdvReac Type Severity Reaction Status Date / Time No Known Allergies Allergy Verified 04/02/23 10:54 Family History Mother , when patient was age 14, metastatic breast cancer Breast cancer Father , age 93 , unknown cause No problems noted. Surgical History abdominal incisional hernia repair (2011) History of aortic valve replacement with bioprosthetic valve (~07/27/21) History of arthroplasty of right ankle History of diana hole surgery History of coronary artery bypass surgery (~07/27/21) History of mitral valve repair (~07/27/21) History of right and left heart catheterization (LHC) (~06/05/21) History of total left hip arthroplasty History of ureter repair (2010) Social History household members: none Smoking Status: Former smoker how long ago did patient quit smokin years ago alcohol intake: current alcohol intake frequency: holidays/special occasions only substance use type: does not use caffeine: Yes Type: coffee Number of servings: 4 ROS ROS Narrative General: Denies fever/chills HENT: Denies headache, denies stuffy nose, denies sore throat EYES: Denies changes in vision Resp: Denies cough, denies shortness of breath Cardiac: Denies chest pain GI: Denies abdominal pain, denies changes in bowel, denies nausea/vomiting : Denies changes in urination Extremity: Denies swelling MSK: Feels a little bit generally weak, has some left shoulder pain Neuro: Denies any numbness/tingling, had woozy feeling prior to his fall with no loss of consciousness Heme: Denies any bleeding or bruising Skin: Denies rashes Psychiatric: No complaints voiced Vital Signs Vital Signs Vital Signs: 04/02/23 10:54 04/02/23 12:24 04/02/23 12:26 Temperature 98.1 F Temperature Source Temporal Pulse Rate 72 62 Respiratory Rate 18 18 Respiratory Effort Normal Non-Labored Blood Pressure 181/65 H 173/84 H Blood Pressure Mean 103 113 Pulse Ox 93 96 Oxygen Delivery Method Room Air Room Air 04/02/23 15:50 Temperature Temperature Source Pulse Rate 87 Respiratory Rate 16 Respiratory Effort Blood Pressure 139/88 H Blood Pressure Mean 105 Pulse Ox 95 Oxygen Delivery Method Room Air Weight Weight: 91.2 kg Body Mass Index (BMI) 25.0 Results Lab / Micro Data 04/02/23 13:24 04/02/23 13:24 Labs: Laboratory Results - last 24 hr 04/02/23 13:24: WBC 12.9 H, RBC 3.47 L, Hgb 9.7 L, Hct 31.4 L, MCV 90.5, MCH 28.0, MCHC 30.9 L, RDW Std Deviation 44.3 H, RDW Coeff of Elayne 13.4, Plt Count 191, MPV 10.3, Immature Gran % (Auto) 0.500, Neut % (Auto) 82.9 H, Lymph % (Auto) 8.6 L, [place] % (Auto) 7.7, Eos % (Auto) 0.1, Baso % (Auto) 0.2, Absolute Neuts (auto) 10.7 H, Absolute Lymphs (auto) 1.11, Nucleated RBC % 0, Sodium 141, Potassium 4.2, Chloride 114 H, Carbon Dioxide 23.0, Anion Gap 4 L, BUN 24 H, Creatinine 1.14, Estim Creat Clear Calc 62.80, Est GFR (MDRD) Af Amer 80, Est GFR (MDRD) Non-Af 66, BUN/Creatinine Ratio 21.1 H, Glucose 151 H, Calcium 8.3 L, Troponin I High Sens 11 Imaging Radiology Impression Shoulder X-Ray 04/02/23 11:10 IMPRESSION: Impacted fracture through the surgical neck of the humerus with involvement of the lesser and greater tuberosities. Electronically Signed: Jake Caceres MD at 11:33 EST , Brain CT 04/02/23 13:20 IMPRESSION: Chronic involutional changes of the brain. 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 Electronically Signed: Jake Caceres MD at 14:24 EST , Cervical Spine CT 04/02/23 13:20 IMPRESSION: Multilevel degenerative changes, as described above. Electronically Signed: Jake Caceres MD at 14:25 EST , Assessment & Plan Assessment/Plan (1) Left humeral fracture: (2) Paroxysmal atrial fibrillation: (3) Systolic congestive heart failure: (4) Hypertension: (5) History of mitral valve repair: (6) History of coronary artery bypass surgery: (7) History of aortic valve replacement with bioprosthetic valve: (8) GERD (gastroesophageal reflux disease): (9) Diabetes mellitus, type II: (10) Generalized weakness: (11) Depression: PLAN: Plan # Fall with left proximal humerus fracture -xray: Impacted fracture through the surgical neck of the humerus with involvement of the lesser and greater tuberosities. -Schedule tylenol -pain control -Lidocaine patch -pt reports he fell because he got up to go to the bathroom and felt woozy -Will check orthostats and monitor overnight on tele -Continue sling -PT/OT -Fall precautions #HTN -Hold amlodipine and spironolactone pending orthostats #Type 2 diabetes mellitus -Glucose checks and sliding scale insulin -Does not appear to be on any home medications but has this listed in history -Check AM A1c #Intracranial hematoma after previous fall -In January with surgical intervention, CT shows some amount of residual hematoma with no new bleeding patient with no neurological complaints #GERD -Continue PPI # History of coronary artery disease status post CABG/TAVR/mitral repair -Continue atorvastatin # Chronic heart failure with reduced ejection fraction -Last echo in 2021 with EF 30% -Daily weights, I's and O's -Does not appear to be fluid overloaded #Hx pafib -Not on anticoagulation -Pt to be monitored on tele given woozy feeling before fall #Mood NOS -Pt on seroquel, will continue at this time -Continue melatonin # Chronic anemia -Appears to be at baseline, continue to monitor #DVT ppx: SCDs Dawn Bourne MD Charges/Coding Visit Charges Inpatient E&M: 73862 Init Hosp L2
[2023-04-02 17:00] VITALS: RESP 16
[2023-04-02 19:17] VITALS: BMI 23.3
[2023-04-02 19:59] VITALS: BP 170/53; PULSE 73; RESP 16; TEMP 36.6; O2SAT 99
[2023-04-02 20:04] VITALS: BP 128/63; BP 157/83; BP 170/53; PULSE 61; PULSE 63; PULSE 73
[2023-04-02] MEDS: oxyCODONE 5 MG Tablet PO (20:36)
[2023-04-02] MEDS: Acetaminophen 500 MG Tablet 1000 MG PO (22:20)
[2023-04-02] MEDS: Atorvastatin Calcium 20 MG Tablet PO (22:20)
[2023-04-02] MEDS: MELATONIN 3 MG TABLET PO (22:20)
[2023-04-02] MEDS: Pantoprazole Sodium 20 MG Tablet PO (22:21)
[2023-04-02] MEDS: QUEtiapine 25 MG Tablet 50 MG PO (22:21)
[2023-04-02 22:43] LABS: Bedside Glucose 118 mg/dL (74-106)
[2023-04-03 02:30] VITALS: BP 185/70; PULSE 54; RESP 16; TEMP 36.4; O2SAT 100
[2023-04-03 03:17] VITALS: BP 185/70; PULSE 54
[2023-04-03] MEDS: hydrALAZINE 20 MG/ML Vial 10 MG IV (03:17)
[2023-04-03 06:00] VITALS: BMI 23.3
[2023-04-03 06:19] VITALS: BP 160/61
[2023-04-03] MEDS: Acetaminophen 500 MG Tablet 1000 MG PO ×3 (06:23→22:54)
[2023-04-03] MEDS: oxyCODONE 5 MG Tablet PO (06:25)
[2023-04-03 06:40] LABS: Bedside Glucose 99 mg/dL (74-106)
[2023-04-03 08:12] LABS: Absolute Lymphocyte Count 1.32 X10^3/uL (0.83-4.51); Absolute Neutrophil Count 5.6 X10^3/uL (2.0-7.7); Basophil# 0.04 X10^3/uL; Basophil% 0.5 % (0-1); Eosinophil# 0.19 X10^3/uL; Eosinophils% 2.4 % (0-5); Hemoglobin 8.7 g/dL (13.0-16.5); Lymphocyte # 1.32 X10^3/ul (0.83-4.51); Lymphocyte % 16.5 % (19-41); Mean Corp Hgb Conc 31.1 g/dL (32-36); Mean Corpuscular Hgb 27.5 pg (27.0-32.0); Mean Corpuscular Volume 88.6 fL (80-94); Mean Platelet Vol. 10.5 fl (6.2-12.0); Monocyte# 0.84 X10^3/uL; Monocyte% 10.5 % (0-10); NRBC Flagged by Analyzer 0 % (0-5); Neutrophil # 5.56 X10^3/uL (2.7-7.7); Neutrophil % 69.7 % (47-70); Platelet Count 168 K/mm3 (150-450); RBC Distribution Width CV 13.7 % (11.6-14.6); RBC Distribution Width SD 44.8 fl (35.1-43.9); Red Blood Count 3.16 M/mm3 (4.6-6.2)
[2023-04-03 08:30] LABS: International Normalized Ratio 1.3; Prothrombin Time (Protime)PT. 15.8 SECONDS (11.7-14.9)
[2023-04-03 08:53] LABS: Hemoglobin A1c 5.5 % (3.8-5.6)
[2023-04-03 09:03] LABS: ALB/GLOB Ratio 0.8 RATIO (0.9-2.4); AST(SGOT) 10 U/L (15-37); Alanine Aminotransfer ALT/SGPT 12 U/L (16-61); Alkaline Phosphatase 110 U/L (45-117); Anion Gap 5 (5-15); BUN 25 mg/dL (7-18); BUN/Creat Ratio 26.6 RATIO (10-20); Calcium,Total 8.7 mg/dL (8.5-10.1); Chloride 109 mmol/L (98-107); Creatinine, Serum 0.94 mg/dL (0.70-1.30); EST Glomerular Filtration Rate 82 mL/min (>60); Est Glom Filt Rate - Afr Amer 100 mL/min (>60); Estimated Creatinine Clearance 76.16 ml/min; Globulin 3.7 g/dL (2.2-4.2); Glucose 101 mg/dL (74-106); Magnesium 2.5 mg/dL (1.6-2.6); Protein, Total 6.7 g/dL (6.4-8.2); Sodium Level 138 mmol/L (136-145); Thyroid Stim Hormone (TSH) 2.87 uIU/mL (0.358-3.74)
[2023-04-03 10:15] VITALS: BP 111/54; PULSE 55; RESP 16; TEMP 37.2; O2SAT 98
[2023-04-03] MEDS: Lidocaine 5% Patch 1 PATCH TOPICAL (10:26)
--- NOTE | 2023-04-03 10:44 | CASEMGMT ---
Discharge Planning A list of SNF providers including quality and resource use data and consistent with the patient's preferred geographic region, medical needs, and insurance network was created in [employer] Guide.? This list was provided to the SW. Eusebia Cr Discharge Planning Asst.
[2023-04-03] MEDS: Insulin Lispro 100 UNIT/ML INSULN.PEN SC (11:54)
--- NOTE | 2023-04-03 11:56 | PN.HOSP_ITS ---
Subjective Subjective Doing well, some left shoulder pain Objective Data Objective Data Vital Signs: Vital Signs Temp Pulse Resp BP Pulse Ox O2 Del Method 98.9 F 55 L 16 111/54 L 98 Room Air 04/03/23 10:15 04/03/23 10:15 04/03/23 10:15 04/03/23 10:15 04/03/23 10:15 04/03/23 10:15 Oxygen Delivery Method Room Air Weight: 187 lb 6.287 oz Body Mass Index (BMI) 23.3 Intake & Output: Intake and Output for Last 24 Hours 04/02/23 04/03/23 04/04/23 03:59 03:59 03:59 Intake Total 500 / 500 200 / 200 Output Total 200 / 200 200 / 200 Balance 300 / 300 0 / 0 Lab / Micro Data 04/03/23 07:15 04/03/23 07:15 Labs: Laboratory Results - last 24 hr 04/02/23 13:24: WBC 12.9 H, RBC 3.47 L, Hgb 9.7 L, Hct 31.4 L, MCV 90.5, MCH 28.0, MCHC 30.9 L, RDW Std Deviation 44.3 H, RDW Coeff of Elayne 13.4, Plt Count 191, MPV 10.3, Immature Gran % (Auto) 0.500, Neut % (Auto) 82.9 H, Lymph % (Auto) 8.6 L, [place] % (Auto) 7.7, Eos % (Auto) 0.1, Baso % (Auto) 0.2, Absolute Neuts (auto) 10.7 H, Absolute Lymphs (auto) 1.11, Nucleated RBC % 0, Sodium 141, Potassium 4.2, Chloride 114 H, Carbon Dioxide 23.0, Anion Gap 4 L, BUN 24 H, Creatinine 1.14, Estim Creat Clear Calc 62.80, Est GFR (MDRD) Af Amer 80, Est GFR (MDRD) Non-Af 66, BUN/Creatinine Ratio 21.1 H, Glucose 151 H, Calcium 8.3 L, Troponin I High Sens 11 04/02/23 22:18: POC Glucose 118 H 04/03/23 06:21: POC Glucose 99 04/03/23 07:15: WBC 8.0, RBC 3.16 L, Hgb 8.7 L, Hct 28.0 L, MCV 88.6, MCH 27.5, MCHC 31.1 L, RDW Std Deviation 44.8 H, RDW Coeff of Elayne 13.7, Plt Count 168, MPV 10.5, Immature Gran % (Auto) 0.400, Neut % (Auto) 69.7, Lymph % (Auto) 16.5 L, [place] % (Auto) 10.5 H, Eos % (Auto) 2.4, Baso % (Auto) 0.5, Absolute Neuts (auto) 5.6, Absolute Lymphs (auto) 1.32, Nucleated RBC % 0, PT 15.8 H, INR 1.3, Sodium 138, Potassium 4.0, Chloride 109 H, Carbon Dioxide 24.0, Anion Gap 5, BUN 25 H, Creatinine 0.94, Estim Creat Clear Calc 76.16, Est GFR (MDRD) Af Amer 100, Est GFR (MDRD) Non-Af 82, BUN/Creatinine Ratio 26.6 H, Glucose 101, Hemoglobin A1c 5.5, Calcium 8.7, Magnesium 2.5, Total Bilirubin 1.10 H, AST 10 L, ALT 12 L, Alkaline Phosphatase 110, Total Protein 6.7, Albumin 3.0 L, Globulin 3.7, Albumin/Globulin Ratio 0.8 L, TSH 2.87 Radiography Diagnostic Testing: Radiology Impression Brain CT 04/02/23 13:20 IMPRESSION: Chronic involutional changes of the brain. 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 Electronically Signed: Jake Caceres MD at 14:24 EST , Cervical Spine CT 04/02/23 13:20 IMPRESSION: Multilevel degenerative changes, as described above. Electronically Signed: Jake Caceres MD at 14:25 EST , Physical Exam Narrative General: Alert, Oriented x3, Cooperative, No apparent distress HEENT: Atraumatic, PERRLA, EOMI, Normocephalic Oral: Moist Mucosa Neck: Supple, No JVD Lungs: Diminished, Normal air movement, No rhonchi, No wheeze, No rales Cardiovascular: Regular rate, Regular Rhythm, Normal S1, Normal S2, No murmurs Abdomen: Soft, Non Tender, Non-Distended, No Hepato-splenomegaly Extremities: No edema, Capillary Refill Less than 3 Seconds Skin: No rashes, No breakdown Musculoskeletal: Left shoulder tenderness Neurological: No focal neurological deficits, Motor Exam 5/5 strength throughout, Sensory exam intact to light touch and pain Psych/Mental Status: Normal Affect, Appropriate Assessment & Plan Assessment/Plan (1) Left humeral fracture: PLAN: Plan 1. Left proximal humerus fracture status post fall ? He has an impacted fracture through the surgical neck of the humerus with involvement of the lesser and greater tuberosities ? Continue with pain control ? Continue with sling, this is nonoperative ? PT/OT for evaluation possible placement ? January he had an intracranial hematoma after a fall 2. HTN/HLD/CAD status post CABG/TAVR/mitral valve repair/chronic systolic CHF/A-fib ? Blood pressures are stable ? Will continue to monitor make adjustments as necessary ? Not an anticoagulation candidate ? Continue with Lipitor ? Echo in 2021 with an EF of 30% 3. GERD ? Stable ? Continue with home PPI DVT: SCDs Charges/Coding Visit Charges Inpatient E&M: 20303 Subs Hosp L2
[2023-04-03 12:39] LABS: Bedside Glucose 157 mg/dL (74-106)
--- NOTE | 2023-04-03 13:05 | CASEMGMT ---
Addendum entered by Kristie Sanchez 04/03/23 15:50: TCU is able to accept pt and precert has been started at this time. SW updated pt and pt states he will notify his son. Plan: TCU, pending SAADIA Marino Original Note: Social Work SW met with pt and introduced self and role of SW. Pt lives at home alone in a 1 story home with 2 steps to enter. Pt had been independent at home and fell with humerus fracture and was brought to the hospital. SW spoke with pt regarding discharge plan and possible need for SNF placement. Pt indecisive with plans going forward. SW inquired if pt son should be included in decision making and pt is agreeable. Phone call to pt son Guilherme and Guilherme on speaker phone with SW and pt present. Guilherme informing pt that he does not feel pt can return home and that short term rehab will be needed followed by placement in Assisted Living. Pt has looked at AL facilities previously and [facility] is [facility]. Guilherme stating that preference of SNF is 1. TCU and 2. [facility]. SW inquired with pt about choices and pt is agreeable with son. After phone call with Guilherme, SW spent time with pt and provided emotional support discussing need for terminal operations manager placement. Referral made to TCU for short term skilled care. SW will await determination of acceptance. Pt will need insurance precert prior to SNF admission. Plan: TCU, pending acceptance and precert SAADIA Torres
[2023-04-03 14:34] VITALS: BP 143/62; PULSE 56; RESP 16; TEMP 37.2; O2SAT 99
--- NOTE | 2023-04-03 16:21 | CASEMGMT ---
Met with patient to complete TOSCANO form. TOSCANO form explained to?patient who voiced understanding and signed form. Original form placed in pt?s chart and copy provided to?patient. Eusebia Cr, Discharge Planning Asst
[2023-04-03 17:34] LABS: Bedside Glucose 103 mg/dL (74-106)
[2023-04-03 22:22] VITALS: BP 149/51; PULSE 62; RESP 20; TEMP 37; O2SAT 98
[2023-04-03] MEDS: 0.9% Saline Lock 10 ML Syringe IV (22:54)
[2023-04-03] MEDS: Atorvastatin Calcium 20 MG Tablet PO (22:55)
[2023-04-03] MEDS: QUEtiapine 25 MG Tablet 50 MG PO (22:55)
[2023-04-03] MEDS: Pantoprazole Sodium 20 MG Tablet PO (22:55)
[2023-04-03] MEDS: MELATONIN 3 MG TABLET PO (22:55)
[2023-04-03 23:17] LABS: Bedside Glucose 116 mg/dL (74-106)
[2023-04-04 03:11] VITALS: BMI 23.3
[2023-04-04 04:43] VITALS: BP 149/64; PULSE 61; RESP 20; TEMP 37.4; O2SAT 97
[2023-04-04] MEDS: Acetaminophen 500 MG Tablet 1000 MG PO ×2 (04:54→14:15)
[2023-04-04 05:43] LABS: Bedside Glucose 112 mg/dL (74-106)
[2023-04-04 06:27] LABS: Absolute Lymphocyte Count 1.17 X10^3/uL (0.83-4.51); Absolute Neutrophil Count 4.5 X10^3/uL (2.0-7.7); Basophil# 0.06 X10^3/uL; Basophil% 0.9 % (0-1); Hematocrit 24.1 % (40-54); Hemoglobin 7.7 g/dL (13.0-16.5); Lymphocyte # 1.17 X10^3/ul (0.83-4.51); Lymphocyte % 17.6 % (19-41); Mean Corpuscular Hgb 28.1 pg (27.0-32.0); Mean Platelet Vol. 10.1 fl (6.2-12.0); Monocyte# 0.68 X10^3/uL; Monocyte% 10.3 % (0-10); NRBC Flagged by Analyzer 0 % (0-5); Neutrophil # 4.48 X10^3/uL (2.7-7.7); Neutrophil % 67.6 % (47-70); Platelet Count 165 K/mm3 (150-450); RBC Distribution Width CV 13.9 % (11.6-14.6); RBC Distribution Width SD 44.8 fl (35.1-43.9); Red Blood Count 2.74 M/mm3 (4.6-6.2); White Blood Count 6.6 K/mm3 (4.4-11.0)
[2023-04-04 06:38] LABS: Anion Gap 4 (5-15); BUN 35 mg/dL (7-18); BUN/Creat Ratio 30.7 RATIO (10-20); Calcium,Total 8.4 mg/dL (8.5-10.1); Chloride 106 mmol/L (98-107); Creatinine, Serum 1.14 mg/dL (0.70-1.30); EST Glomerular Filtration Rate 66 mL/min (>60); Est Glom Filt Rate - Afr Amer 80 mL/min (>60); Glucose 113 mg/dL (74-106); Sodium Level 135 mmol/L (136-145)
[2023-04-04 08:41] VITALS: BP 167/67; PULSE 65; RESP 16; TEMP 36.6; O2SAT 95
[2023-04-04] MEDS: Lidocaine 5% Patch 1 PATCH TOPICAL (10:08)
[2023-04-04 11:14] LABS: Ferritin 76 ng/mL (26-388); Iron 16 ug/dL (65-175); Iron Binding Capacity,Total 218 ug/dL (250-450); PERCENT IRON SATURATION 7.3 % (15.0-55.0)
--- NOTE | 2023-04-04 11:20 | CASEMGMT ---
Addendum entered by Kristie Sanchez 04/04/23 14:08: Social Work Per physician pt will be ready for discharge today after infusion. CHANO met with pt and informed of this and pt is agreeable. With pt permission phone call to pt son and updated on the discharge plan and son is agreeable. DC orders faxed to TCU and Katie updated on status of dc. Disposition: TCU, skilled level of care SAADIA Torres Original Note: Social Work Precert has been obtained for pt to admit to the TCU. Physican updated that pt can discharge when medically ready. CHANO met with pt and updated and pt is understanding. Plan: TCU, when medically ready SAADIA Torres
[2023-04-04 12:05] LABS: Bedside Glucose 148 mg/dL (74-106)
[2023-04-04 12:44] LABS: Hematocrit 24.8 % (40-54); Hemoglobin 7.9 g/dL (13.0-16.5)
--- NOTE | 2023-04-04 13:32 | TREXTCAR_ITS ---
Diet Diet Order/Speech Therapy: 04/02/23 19:31 Diet: Cardiac - Heart Healthy Food consistency:: Regular Liquid Consistency:: Regular/Thin Routine Orders/Code Status Routine Lab Work: CBC and BMP Code Status: DNRCC-A Wound(s) back of right scalp: Wound Type: Surgical Incision Therapies Weight Bearing: Non weight bearing Extremity Affected:: Left Upper Physical Therapy: Eval and Treat Occupational Therapy: Eval and Treat Problem/Diagnosis (1) Left humeral fracture: Status: Acute Code(s): S42.302A - Unspecified fracture of shaft of humerus, left arm, initial encounter for closed fracture Plan 1. Left proximal humerus fracture status post fall ? He has an impacted fracture through the surgical neck of the humerus with involvement of the lesser and greater tuberosities ? Continue with pain control ? Continue with sling, this is nonoperative ? PT/OT for evaluation possible placement ? January he had an intracranial hematoma after a fall 2. HTN/HLD/CAD status post CABG/TAVR/mitral valve repair/chronic systolic CHF/A-fib ? Blood pressures are stable ? Will continue to monitor make adjustments as necessary ? Not an anticoagulation candidate ? Continue with Lipitor ? Echo in 2021 with an EF of 30% 3. GERD ? Stable ? Continue with home PPI DVT: SCDs Allergies/Procedures Done in Hospital Allergies No Known Allergies Allergy (Verified 04/02/23 10:54) Procedures: None Type of Care/Length of Stay Estimated LOS: Convalescent Care Less Than 30 days Type of Care Needed: Skilled Rehab Potential: Good Prognosis: Good Additional Orders/Day of Discharge Day of Discharge: 04/04/23 Discharge Plan Admission Admit Date/Time: 04/02/23 16:45 Attending Provider: Bashir Foster Primary Care Provider: Neida Brewer Consulting Providers: Dawn Bourne Instructions Additional Instructions / Restrictions: Monitor hemoglobin as an outpatient, it does appear that based on the iron studies he likely has a component of iron deficiency anemia as well as possible anemia of chronic disease, his iron as well as his TIBC and saturation were all low but his ferritin was normal. He did receive a dose of Venofer on the day of discharge and I have placed him on iron on discharge as well p.o. Discharge Orders/Prescriptions Prescriptions: New ferrous sulfate 325 mg (65 mg iron) tablet 325 mg PO DAILY Qty: 1 0RF oxycodone 5 mg Tablet 5 mg PO Q4H PRN PRN (Reason: Pain Score 4-10) 3 Days Qty: 10 0RF Continued atorvastatin 20 mg tablet 20 mg PO QHS omeprazole 20 mg capsule,delayed release(DR/EC) 20 mg PO QHS quetiapine 25 mg Tablet 50 mg PO QHS 30 Days Qty: 60 0RF amlodipine 5 mg tablet 5 mg PO QHS cholecalciferol (vitamin D3) 125 mcg (5,000 unit) capsule 125 mcg PO QHS spironolactone 25 mg Tablet 25 mg PO QHS melatonin 3 mg tablet 3 mg PO QHS acetaminophen [Acetaminophen Extra Strength] 500 mg tablet 1,000 mg PO TID PRN (Reason: PAIN ) Referrals / Follow Up: Neida Brewre NP-C [Primary Care Provider] - Disposition Disposition (needs filled in before D/C Order can be placed): Senior Living Facility
--- NOTE | 2023-04-04 13:38 | PCM.DC.SUM ---
Providers Date of Admission: 04/02/23 Primary Care Physician: DANIA LauraC Reason For Visit: FALL W/ LEG ARM BREAK AND PRESYNCOPE Diagnosis Discharge Diagnosis (1) Left humeral fracture: Status: Acute Code(s): S42.302A - Unspecified fracture of shaft of humerus, left arm, initial encounter for closed fracture Medications at Discharge Home Medications atorvastatin 20 mg tablet 20 mg PO QHS CHOLESTEROL 04/05/19 omeprazole 20 mg capsule,delayed release 20 mg PO QHS ACID REFLUX 10/09/21 quetiapine 25 mg tablet 50 mg (2 x 25 mg) PO QHS MOOD 30 days #60 tabs 01/22/23 acetaminophen 500 mg tablet (Acetaminophen Extra Strength) 1,000 mg PO TID PRN PAIN 04/02/23 amlodipine 5 mg tablet 5 mg PO QHS BLOOD PRESSURE 04/02/23 cholecalciferol (vitamin D3) 125 mcg (5,000 unit) capsule 125 mcg PO QHS SUPPLEMENT 04/02/23 melatonin 3 mg tablet 3 mg PO QHS SLEEP 04/02/23 spironolactone 25 mg tablet 25 mg PO QHS BLOOD PRESSURE 04/02/23 ferrous sulfate 325 mg (65 mg iron) tablet 325 mg PO DAILY #1 TAB 04/04/23 oxycodone 5 mg tablet 5 mg PO Q4H PRN PRN Pain Score 4-10 3 days #10 tabs 04/04/23 Hospital Course Operations None Procedures None Summary of Care Provided Minutes Spent on Discharge: 37 Hospital Course: Per HPI: ADA JUNE, is a 77 M w/ hx of diabetes, GERD, hypertension, CHF, A-fib and previous fall in January with intracranial hemorrhage requiring surgical intervention who presented to [facility] ED 04/02/2023 with a fall and striking left arm. Patient got up to go to the bathroom and when he left the bathroom and was walking back to his chair he felt woozy and like he might pass out but before he could sit down he fell backwards and onto his left side and denies injuring any other part of him. In the ED patient had x-ray which showed impacted proximal humerus fracture without evidence of dislocation, CT of the brain without contrast showed some residual chronic hematoma without evidence of new bleed. Patient in ED was weak and unsteady on his feet and given that he lives alone hospitalist contacted for admission for pain control and possible placement. Patient evaluated in ED and he reports history as above, reports occasionally he will feel a little bit dizzy but today it was when he got up to walk back to his chair, as soon as he got to the floor he no longer had any of the symptoms, denied any other symptoms whatsoever at that time. Has not had any recurrence of symptoms in the ED and primary complaint is pain in the left shoulder, denies any numbness tingling or pain anywhere other than his shoulder. Patient does not feel safe to go home at this time. Hospital Course: 1. Left proximal humerus fracture status post fall?77-year-old male presented to the hospital after a mechanical fall. He developed a left humeral fracture that per ER and admitting physician is nonoperative. Pain is being managed with appropriate pain control and he will continue with the sling for the next 6 to 8 weeks. He was evaluated by PT/OT and they recommended SNF placement. He did get excepted to SNF and I discussed with him the plan for discharge today and he expressed understanding of the risk benefits of going home and would like to go home today. 2. Acute on chronic anemia?it looks like he has been anemic since at least 2020 but there does not appear to be any significant workup. Iron studies today demonstrate a mixed picture with iron deficiency and anemia of chronic disease. His hemoglobin this morning was 7.7 on recheck it corrected to 7.9. Will provide him a dose of IV Venofer prior to discharge and place him on p.o. iron on discharge. I do recommend outpatient follow-up as indicated. 3. Hypertension, hyperlipidemia, CAD status post CABG, TAVR, mitral valve repair, chronic systolic CHF, A-fib, GERD are all chronic medical conditions which complicate his care. His home medications were continued where appropriate Physical Exam Narrative General: Alert, Oriented x3, Cooperative, No apparent distress HEENT: Atraumatic, PERRLA, EOMI, Normocephalic Oral: Moist Mucosa Neck: Supple, No JVD Lungs: Diminished, Normal air movement, No rhonchi, No wheeze, No rales Cardiovascular: Regular rate, Regular Rhythm, Normal S1, Normal S2, No murmurs Abdomen: Soft, Non Tender, Non-Distended, No Hepato-splenomegaly Extremities: No edema, Capillary Refill Less than 3 Seconds Skin: No rashes, No breakdown Musculoskeletal: Left shoulder tenderness Neurological: No focal neurological deficits, Motor Exam 5/5 strength throughout, Sensory exam intact to light touch and pain Psych/Mental Status: Normal Affect, Appropriate Weight / BMI Weight Weight: 187 lb 6.287 oz Body Mass Index (BMI) 23.3 ABG / Lab / Microbiology Data 04/04/23 12:15 04/04/23 06:00 Laboratory: Laboratory Results - last 24 hr 04/03/23 17:16: POC Glucose 103 04/03/23 22:28: POC Glucose 116 H 04/04/23 04:52: POC Glucose 112 H 04/04/23 06:00: WBC 6.6, RBC 2.74 L, Hgb 7.7 L, Hct 24.1 L, MCV 88.0, MCH 28.1, MCHC 32.0, RDW Std Deviation 44.8 H, RDW Coeff of Elayne 13.9, Plt Count 165, MPV 10.1, Immature Gran % (Auto) 0.600, Neut % (Auto) 67.6, Lymph % (Auto) 17.6 L, [place] % (Auto) 10.3 H, Eos % (Auto) 3.0, Baso % (Auto) 0.9, Absolute Neuts (auto) 4.5, Absolute Lymphs (auto) 1.17, Nucleated RBC % 0, Sodium 135 L, Potassium 4.0, Chloride 106, Carbon Dioxide 25.0, Anion Gap 4 L, BUN 35 H, Creatinine 1.14, Estim Creat Clear Calc 62.80, Est GFR (MDRD) Af Amer 80, Est GFR (MDRD) Non-Af 66, BUN/Creatinine Ratio 30.7 H, Glucose 113 H, Calcium 8.4 L, Iron 16 L, TIBC 218 L, Iron Saturation 7.3 L, Ferritin 76 04/04/23 11:47: POC Glucose 148 H 04/04/23 12:15: Hgb 7.9 L, Hct 24.8 L Meaningful Use Info Meaningful Use Diagnoses (Choose all that apply): None applicable Discharge Plan Admission Admit Date/Time: 04/02/23 16:45 Attending Provider: Bashir Foster Primary Care Provider: Neida Brewer Consulting Providers: Dawn Bourne Instructions Additional Instructions / Restrictions: Monitor hemoglobin as an outpatient, it does appear that based on the iron studies he likely has a component of iron deficiency anemia as well as possible anemia of chronic disease, his iron as well as his TIBC and saturation were all low but his ferritin was normal. He did receive a dose of Venofer on the day of discharge and I have placed him on iron on discharge as well p.o. Discharge Orders/Prescriptions Prescriptions: New ferrous sulfate 325 mg (65 mg iron) tablet 325 mg PO DAILY Qty: 1 0RF oxycodone 5 mg Tablet 5 mg PO Q4H PRN PRN (Reason: Pain Score 4-10) 3 Days Qty: 10 0RF Continued atorvastatin 20 mg tablet 20 mg PO QHS omeprazole 20 mg capsule,delayed release(DR/EC) 20 mg PO QHS quetiapine 25 mg Tablet 50 mg PO QHS 30 Days Qty: 60 0RF amlodipine 5 mg tablet 5 mg PO QHS cholecalciferol (vitamin D3) 125 mcg (5,000 unit) capsule 125 mcg PO QHS spironolactone 25 mg Tablet 25 mg PO QHS melatonin 3 mg tablet 3 mg PO QHS acetaminophen [Acetaminophen Extra Strength] 500 mg tablet 1,000 mg PO TID PRN (Reason: PAIN ) Referrals / Follow Up: Neida Brewer, RESEARCH AND DEVELOPMENT RESEARCHER-C [Primary Care Provider] - Disposition Disposition (needs filled in before D/C Order can be placed): Intermediate Facility Charges/Coding Visit Charges Inpatient E&M: 53230 Disch Hosp >30min
[2023-04-04 13:58] VITALS: BP 165/67; PULSE 69; RESP 16; TEMP 36.8; O2SAT 97
[2023-04-04] MEDS: oxyCODONE 5 MG Tablet PO (14:14)
[2023-04-04] MEDS: Sodium Ferric Gluconat/Sucrose 250 MG in 0.9% Normal Saline (250mL Bag) 250 ML 135 MG IV (14:15)
[2023-04-04] MEDS: 0.9% Normal Saline (250mL Bag) 250 ML 15 ML IV (14:15)
--- NOTE | 2023-04-04 14:23 | PHA.DC.MR.R ---
Pharmacy [place] Med Reconciliation Pharmacy Service has performed discharge medication reconciliation for this patient upon transfer to TCU The patient's discharge medication list was reviewed for discrepancies and discrepancies were resolved. Medications at Discharge Home Medications atorvastatin 20 mg tablet 20 mg PO QHS CHOLESTEROL 04/05/19 omeprazole 20 mg capsule,delayed release 20 mg PO QHS ACID REFLUX 10/09/21 quetiapine 25 mg tablet 50 mg (2 x 25 mg) PO QHS MOOD 30 days #60 tabs 01/22/23 acetaminophen 500 mg tablet (Acetaminophen Extra Strength) 1,000 mg PO TID PRN PAIN 04/02/23 amlodipine 5 mg tablet 5 mg PO QHS BLOOD PRESSURE 04/02/23 cholecalciferol (vitamin D3) 125 mcg (5,000 unit) capsule 125 mcg PO QHS SUPPLEMENT 04/02/23 melatonin 3 mg tablet 3 mg PO QHS SLEEP 04/02/23 spironolactone 25 mg tablet 25 mg PO QHS BLOOD PRESSURE 04/02/23 ferrous sulfate 325 mg (65 mg iron) tablet 325 mg PO DAILY #1 TAB 04/04/23 oxycodone 5 mg tablet 5 mg PO Q4H PRN PRN Pain Score 4-10 3 days #10 tabs 04/04/23
[2023-04-04 16:43] LABS: Bedside Glucose 138 mg/dL (74-106)
== END 2023-04-04 17:44 | disposition skilled nursing facility (03) ==
LOC: ED 15:20 → MS3 17:25
PROVIDERS: Admitting Provider Internal Medicine; Emergency Provider Emergency Medicine; PCP Nurse Practitioner Family; Visit Provider Family Medicine
DX: S42.215A Unspecified nondisplaced fracture of surgical neck of left humerus, initial encounter for closed fracture (principal); I11.0 Hypertensive heart disease with heart failure; I50.22 Chronic systolic (congestive) heart failure; I48.0 Paroxysmal atrial fibrillation; E11.9 Type 2 diabetes mellitus without complications; D50.9 Iron deficiency anemia, unspecified; Z95.2 Presence of prosthetic heart valve; D63.8 Anemia in other chronic diseases classified elsewhere; Z91.81 History of falling; K21.9 Gastro-esophageal reflux disease without esophagitis; Z87.891 Personal history of nicotine dependence; W19.XXXA Unspecified fall, initial encounter; E78.5 Hyperlipidemia, unspecified; I25.10 Atherosclerotic heart disease of native coronary artery without angina pectoris; Z79.899 Other long term (current) drug therapy
CPT/HCPCS: 36415; 70450; 72125; 73030; 80048; 80053; 82728; 82962; 83036; 83540; 83550; 83735; 84443; 84484; 85014; 85018; 85025; 85610; 93005; 96365; 96366; 96375; 96376; 97162; 97166; 99221; 99284; J7050; A4216; G0378; J2916

== ENCOUNTER 2023-04-04 18:05 | Inpatient (IN) | payer MEDICARE, SELFPAY ==
[2023-04-04 18:10] VITALS: BP 164/65; PULSE 61; RESP 14; TEMP 36.9; O2SAT 100; BMI 24.2
[2023-04-04 18:21] VITALS: BMI 24.0
--- NOTE | 2023-04-04 19:21 | HP.PCM_ITS ---
HPI - General General Date of Admission: 04/04/23 Date of Service: 04/04/23 Chief Complaint: Here for rehabilitation. HPI Narrative 04/02/2023 ADA JUNE, is a 77 Male who presents to [facility] ED with fall, left upper extremity injury. Fall, felt woozy, almost passed out, no head injury. Left arm injury. X-ray showed left humerus fracture. CT head showed residual chronic hematoma, no new bleed. CT cervical spine negative. EKG atrial fibrillation with PVC's. Unstable on feet, left upper arm sling, Admit for placement, patient lives alone. 04/02/2023 Admit to Hospital. Tylenol, Lidoderm, sling, PT/OT for left humerus fracture. Check orthostatics for wooziness. Hold Amlodipine, Hold spironolactone for wooziness. 04/03/2023 Doing well, some left shoulder pain. Left humerus fracture nonoperative. PT/OT for SNF. Not anticoagulation candidate for atrial fibrillation 04/04 falls. 04/04/2023 Anemia of chronic disease plus iron deficiency anemia. Hemoglobin 7.7 to 7.9. IV Venofer given, then oral iron on discharge. 04/04/2023 Admit to TCU with debility, here for rehabilitation, strengthening, prior to discharge home alone. 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 Lower extremity edema New onset atrial fibrillation Non-rheumatic mitral regurgitation Non-rheumatic mitral valve stenosis Non-rheumatic tricuspid valve insufficiency Nonrheumatic aortic (valve) stenosis Osteoporosis Paroxysmal atrial fibrillation Ulnar neuropathy Vitamin D deficiency Home Medications atorvastatin 20 mg tablet 20 mg PO QHS CHOLESTEROL 04/05/19 [History Last Taken 04/01/23] omeprazole 20 mg capsule,delayed release 20 mg PO QHS ACID REFLUX 10/09/21 [History Last Taken 04/01/23] quetiapine 25 mg tablet 50 mg (2 x 25 mg) PO QHS MOOD 30 days #60 tabs 01/22/23 [Rx Last Taken 04/01/23] acetaminophen 500 mg tablet (Acetaminophen Extra Strength) 1,000 mg PO TID PRN PAIN 04/02/23 [History Last Taken Unknown] amlodipine 5 mg tablet 5 mg PO QHS BLOOD PRESSURE 04/02/23 [History Last Taken 04/01/23] cholecalciferol (vitamin D3) 125 mcg (5,000 unit) capsule 125 mcg PO QHS SUPPLEMENT 04/02/23 [History Last Taken 04/01/23] melatonin 3 mg tablet 3 mg PO QHS SLEEP 04/02/23 [History Last Taken 04/01/23] spironolactone 25 mg tablet 25 mg PO QHS BLOOD PRESSURE 04/02/23 [History Last Taken 04/01/23] ferrous sulfate 325 mg (65 mg iron) tablet 325 mg PO DAILY supplement #1 TAB 04/04/23 [Rx Last Taken Unknown] oxycodone 5 mg tablet 5 mg PO Q4H PRN PRN Pain Score 4-10 3 days #10 tabs 04/04/23 [Rx Last Taken Unknown] Allergy/AdvReac Type Severity Reaction Status Date / Time No Known Allergies Allergy Verified 04/02/23 10:54 Family History Mother , when patient was age 14, metastatic breast cancer Breast cancer Father , age 93 , unknown cause No problems noted. Surgical History abdominal incisional hernia repair (2011) History of aortic valve replacement with bioprosthetic valve (~07/27/21) History of arthroplasty of right ankle History of diana hole surgery History of coronary artery bypass surgery (~07/27/21) History of mitral valve repair (~07/27/21) History of right and left heart catheterization (LHC) (~06/05/21) History of total left hip arthroplasty History of ureter repair (2010) Social History household members: none Smoking Status: Former smoker how long ago did patient quit smokin years ago alcohol intake: current alcohol intake frequency: holidays/special occasions only substance use type: does not use caffeine: Yes Type: coffee Number of servings: 4 ROS Constitutional Constitutional: Denies chills, fever(s) or weight gain ENT HEENT: Denies headache(s), nasal congestion or nasal discharge Cardiovascular Cardiovascular: Denies chest pain or palpitations Respiratory/Chest Respiratory/Chest: Denies cough, excessive phlegm production or shortness of breath with exertion Gastrointestinal Gastrointestinal: Denies abdominal pain, nausea or vomiting Genitourinary Genitourinary: Denies dysuria Musculoskeletal Musculoskeletal: Denies joint pain or joint swelling Integumentary Integumentary: Denies rash or wounds Neurologic Neurologic: Denies focal weakness, numbness or tingling Psychiatric Psychiatric: Denies anxiety, auditory hallucinations, depression, homicidal ideation or suicidal ideation Vital Signs Vital Signs Vital Signs: 04/04/23 18:10 04/04/23 18:10 Temperature 98.4 F Temperature Source Temporal Pulse Rate 61 Pulse Rhythm Irregular Pulse Strength Normal (2+) Respiratory Rate 14 Respiratory Effort Normal Non-Labored Respiratory Depth Normal Respiratory Pattern Normal Blood Pressure 164/65 H Blood Pressure Mean 98 Blood Pressure Source Monitor Blood Pressure Position Semi-Fowlers Blood Pressure Location Right Arm Pulse Ox 100 Oxygen Delivery Method Room Air Room Air Weight Weight: 87.906 kg Body Mass Index (BMI) 24.0 Physical Exam Const alert General Appearance: cooperative HEENT normocephalic Eyes PERRL and EOMs intact bilaterally Neck supple, no JVD and no carotid bruits Resp normal respiratory effort, normal air movement and clear to auscultation bilaterally Cardio regular rate and regular rhythm GI normal to inspection, nondistended, normoactive bowel sounds, non-tender and non-distended Extremity normal capillary refill Extremity Narrative: Left upper extremity sling. General Extremity: Negative for edema Skin no rashes or lesions noted General Skin Exam: no breakdown Psych affect normal Appearance: appropriate Assessment & Plan Assessment/Plan (1) Debility: (2) Fall: (3) Left humeral fracture: (4) Iron deficiency anemia: (5) Subdural hematoma: (6) Hypertension: (7) Hyperlipidemia: (8) Insomnia: (9) GERD (gastroesophageal reflux disease): (10) Chronic HFrEF (heart failure with reduced ejection fraction): (11) BPH (benign prostatic hyperplasia): (12) Atrial fibrillation: PLAN: Plan 77 year old male with below past medical history hospitalized for left humerus fracture, treated nonoperatively, complicated by anemia, admitted to TCU with debility, here for rehabilitation, strengthening, prior to discharge home alone. * Debility - PT/OT. * Pain - Tylenol 1000mg q6 prn pain (1-5), Oxycodone 5mg q4 prn pain (6-10). * Bowel - senna/colace 1 tablet bid, Magnesium citrate 300ml daily prn. * Adult immunization - Administer pneumonia vaccine, covid vaccine, flu vaccine as appropriate. * DVT prophylaxis - Hold, SDH. * Hypertension - Aldactone 25mg qhs, Amlodipine 5mg qhs. * Hyperlipidemia - Atorvastatin 20mg qhs. * Vitamin D deficiency - D3 5000IU daily, * Iron deficiency anemia - Ferrex 150mg daily, Vitamin C 500mg daily. * Insomnia - Melatonin 3mg qhs. * GERD - Pantoprazole 20mg qhs. * Hypoactive delirium - start GDR, lower Seroquel to 25mg qhs x 7 days, then 12.5mg qhs x 7 days, then stop.
[2023-04-04] MEDS: Acetaminophen 500 MG Tablet 1000 MG PO (21:00)
[2023-04-04] MEDS: Spironolactone 25 MG Tablet PO (21:01)
[2023-04-04] MEDS: Atorvastatin Calcium 20 MG Tablet PO (21:01)
[2023-04-04] MEDS: QUEtiapine 25 MG Tablet PO (21:02)
[2023-04-04] MEDS: MELATONIN 3 MG TABLET PO (21:02)
[2023-04-04] MEDS: amLODIPine 5 MG Tablet PO (21:02)
[2023-04-04] MEDS: Pantoprazole Sodium 20 MG Tablet PO (21:02)
[2023-04-04] MEDS: Cholecalciferol (Vit D3) 125 MCG CAPSULE (5,000 UNITS) PO (21:02)
[2023-04-04] MEDS: Senna/Docusate Sodium 1 Tablet PO (21:05)
[2023-04-05 08:30] LABS: Absolute Neutrophil Count 4.1 X10^3/uL (2.0-7.7); Basophil# 0.06 X10^3/uL; Eosinophils% 3.3 % (0-5); Hematocrit 28.3 % (40-54); Hemoglobin 8.8 g/dL (13.0-16.5); Lymphocyte % 19.8 % (19-41); Mean Corp Hgb Conc 31.1 g/dL (32-36); Mean Corpuscular Hgb 27.8 pg (27.0-32.0); Mean Corpuscular Volume 89.3 fL (80-94); Mean Platelet Vol. 9.8 fl (6.2-12.0); Monocyte# 0.49 X10^3/uL; Monocyte% 8.1 % (0-10); NRBC Flagged by Analyzer 0 % (0-5); Neutrophil # 4.08 X10^3/uL (2.7-7.7); Neutrophil % 67.1 % (47-70); Platelet Count 197 K/mm3 (150-450); RBC Distribution Width CV 13.4 % (11.6-14.6); RBC Distribution Width SD 44.4 fl (35.1-43.9); Red Blood Count 3.17 M/mm3 (4.6-6.2); White Blood Count 6.1 K/mm3 (4.4-11.0)
[2023-04-05 08:53] LABS: Anion Gap 5 (5-15); BUN 25 mg/dL (7-18); BUN/Creat Ratio 27.4 RATIO (10-20); Calcium,Total 9.2 mg/dL (8.5-10.1); Chloride 107 mmol/L (98-107); Creatinine, Serum 0.91 mg/dL (0.70-1.30); EST Glomerular Filtration Rate 85 mL/min (>60); Est Glom Filt Rate - Afr Amer 103 mL/min (>60); Estimated Creatinine Clearance 78.67 ml/min; Glucose 116 mg/dL (74-106); Potassium 4.2 mmol/L (3.5-5.1); Sodium Level 136 mmol/L (136-145)
[2023-04-05 10:02] VITALS: BP 182/71; PULSE 64; RESP 17; TEMP 36.6; O2SAT 100
[2023-04-05] MEDS: oxyCODONE 5 MG Tablet PO ×2 (10:12→15:37)
[2023-04-05] MEDS: Tuberculin,Purif.prot.deriv. 50 TU/ML Vial 0.100000000000000006 ML ID (10:13)
[2023-04-05] MEDS: Senna/Docusate Sodium 1 Tablet PO ×2 (10:13→21:27)
--- NOTE | 2023-04-05 10:34 | NURSING ---
Call placed to Dr. Mixon for elevated blood pressure. 191/60 and 182/71 when re-cycled. New orders received with read back: increase Norvac to 10mg PO QHS and add Hydralazine 25mg PO TID, give first dose now.
[2023-04-05 11:44] VITALS: PULSE 64
[2023-04-05] MEDS: Iron Polysaccharide Complex 150 MG CAPSULE PO (11:44)
[2023-04-05] MEDS: Ascorbic Acid 500 MG Tablet PO (11:44)
[2023-04-05] MEDS: hydrALAZINE 25 MG Tablet PO ×3 (11:44→21:25)
[2023-04-05] MEDS: Acetaminophen 500 MG Tablet 1000 MG PO ×2 (11:49→21:24)
[2023-04-05 15:20] VITALS: BP 180/99; PULSE 58
[2023-04-05 15:34] VITALS: BP 180/99; PULSE 58
[2023-04-05 16:21] VITALS: BP 155/67; PULSE 66
[2023-04-05 21:25] VITALS: BP 128/68; PULSE 63
[2023-04-05] MEDS: QUEtiapine 25 MG Tablet PO (21:25)
[2023-04-05] MEDS: Atorvastatin Calcium 20 MG Tablet PO (21:25)
[2023-04-05] MEDS: amLODIPine 10 MG Tablet PO (21:25)
[2023-04-05] MEDS: Spironolactone 25 MG Tablet PO (21:26)
[2023-04-05] MEDS: MELATONIN 3 MG TABLET PO (21:26)
[2023-04-05] MEDS: Cholecalciferol (Vit D3) 125 MCG CAPSULE (5,000 UNITS) PO (21:27)
[2023-04-05] MEDS: Pantoprazole Sodium 20 MG Tablet PO (21:27)
[2023-04-06 06:36] VITALS: BP 177/63; PULSE 62
[2023-04-06] MEDS: hydrALAZINE 25 MG Tablet PO ×3 (06:36→20:59)
[2023-04-06 08:30] VITALS: BP 140/67; PULSE 70; RESP 17; TEMP 36.6; O2SAT 98
[2023-04-06] MEDS: oxyCODONE 5 MG Tablet PO ×2 (08:33→20:58)
[2023-04-06] MEDS: Ascorbic Acid 500 MG Tablet PO (08:33)
[2023-04-06] MEDS: Acetaminophen 500 MG Tablet 1000 MG PO (08:33)
[2023-04-06] MEDS: Iron Polysaccharide Complex 150 MG CAPSULE PO (08:33)
[2023-04-06] MEDS: Senna/Docusate Sodium 1 Tablet PO ×2 (08:33→21:01)
[2023-04-06 14:57] VITALS: BP 158/78; PULSE 60
[2023-04-06 14:59] VITALS: PULSE 60
[2023-04-06 20:59] VITALS: BP 180/52; PULSE 80
[2023-04-06] MEDS: amLODIPine 10 MG Tablet PO (20:59)
[2023-04-06] MEDS: QUEtiapine 25 MG Tablet PO (21:01)
[2023-04-06] MEDS: Cholecalciferol (Vit D3) 125 MCG CAPSULE (5,000 UNITS) PO (21:01)
[2023-04-06] MEDS: Pantoprazole Sodium 20 MG Tablet PO (21:01)
[2023-04-06] MEDS: Atorvastatin Calcium 20 MG Tablet PO (21:01)
[2023-04-06] MEDS: MELATONIN 3 MG TABLET PO (21:01)
[2023-04-06] MEDS: Spironolactone 25 MG Tablet PO (21:02)
[2023-04-07] VITALS (7 sets, daily range): BP systolic 143–171; BP diastolic 53–75; PULSE 60–69; RESP 16; TEMP 36.9; O2SAT 100
[2023-04-07] MEDS: oxyCODONE 5 MG Tablet PO ×3 (05:29→21:31)
[2023-04-07] MEDS: hydrALAZINE 25 MG Tablet PO ×2 (05:30→14:21)
[2023-04-07 06:25] LABS: Hematocrit 25.5 % (40-54)
--- NOTE | 2023-04-07 09:28 | NURSING ---
Occupational Therapist Assistant Note; Activity Asset: Mahesh Casnaova has returned to TCU for continued therapy. He remains independent in his choice of daily activities and family will visits daily. He will read the paper and enjoys talking with others. At this time he has stated he would prefer to stay in his room and watch tv or read. Staff will remind him of in room and group activities and respect his right to say no.
[2023-04-07] MEDS: Iron Polysaccharide Complex 150 MG CAPSULE PO (10:47)
[2023-04-07] MEDS: Senna/Docusate Sodium 1 Tablet PO ×2 (10:47→20:42)
[2023-04-07] MEDS: Nystatin Powder 15gm Bottle 1 APPLIC TOPICAL ×2 (10:47→20:43)
[2023-04-07] MEDS: Ascorbic Acid 500 MG Tablet PO (10:47)
--- NOTE | 2023-04-07 11:21 | NURSING ---
Offered covid vaccine, VIS provided. Patient refuses at this time.
--- NOTE | 2023-04-07 14:37 | PHA.CONS_ITS ---
Documented by User: Virgil Cobos 04/07/23 15:24 TCU RX Drug Regimen Review Subjective/Objective Subjective/Objective: Subjective: 77 year old male with below past medical history hospitalized for left humerus fracture, treated nonoperatively, complicated by anemia, admitted to TCU with debility, here for rehabilitation, strengthening, prior to discharge home alone. Objective: Allergies No Known Allergies Allergy (Verified 04/02/23 10:54) Current Medications Generic Name Dose Route Start Last Admin Trade Name Freq PRN Reason Stop Dose Admin Acetaminophen 1,000 mg 04/04/23 19:35 04/06/23 08:33 Acetaminophen 500 Mg Tablet PO 1,000 mg Q6H PRN Administration Pain Score 1-5 Amlodipine Besylate 10 mg 04/05/23 22:00 04/06/23 20:59 Amlodipine 10 Mg Tablet PO 10 mg QHS [facility] Administration Protocol Ascorbic Acid 500 mg 04/05/23 10:00 04/07/23 10:47 Ascorbic Acid 500 Mg Tablet PO 500 mg 1000 CRAIG Administration Atorvastatin Calcium 20 mg 04/04/23 22:00 04/06/23 21:01 Atorvastatin Calcium 20 Mg Tablet PO 20 mg QHS CRAIG Administration Cholecalciferol 125 mcg 04/04/23 22:00 04/06/23 21:01 Cholecalciferol (Vit D3) 125 Mcg Capsule (5,000 Units) PO 125 mcg QHS CRAIG Administration Hydralazine HCl 25 mg 04/05/23 10:33 04/07/23 14:21 Hydralazine 25 Mg Tablet PO 25 mg TID CRAIG Administration Protocol Magnesium Citrate 300 ml 04/04/23 19:35 Magnesium Citrate 300 Ml PO DAILY PRN Constipation Melatonin 3 mg 04/04/23 22:00 04/06/23 21:01 Melatonin 3 Mg Tablet PO 3 mg QHS CRAIG Administration Nystatin 1 applic 04/07/23 10:00 04/07/23 10:47 Nystatin Powder 15gm Bottle TOPICAL 1 applic BID CRAIG Administration Protocol Oxycodone HCl 5 mg 04/04/23 18:17 04/07/23 05:29 Oxycodone 5 Mg Tablet PO 5 mg Q4H PRN PRN Administration Pain Score 4-10 Pantoprazole Sodium 20 mg 04/04/23 22:00 04/06/23 21:01 Pantoprazole Sodium 20 Mg Tablet PO 20 mg QHS CRAIG Administration Polysaccharide Iron Complex 150 mg 04/05/23 10:00 04/07/23 10:47 Iron Polysaccharide Complex 150 Mg Capsule PO 150 mg DAILY CRAIG Administration Quetiapine Fumarate 25 mg 04/04/23 22:00 04/06/23 21:01 Quetiapine 25 Mg Tablet PO 04/11/23 22:01 25 mg QHS CRAIG Administration Quetiapine Fumarate 12.5 mg 04/12/23 22:00 Quetiapine 25 Mg Tablet PO 04/19/23 22:01 QHS CRAIG Senna/Docusate Sodium 1 tablet 04/04/23 22:00 04/07/23 10:47 Senna/Docusate Sodium 1 Tablet PO 1 tablet BID CRAIG Administration Sodium Chloride 10 - 40 ml 04/04/23 18:40 0.9% Saline Lock 10 Ml Syringe IV UD PRN SALINE FLUSH Spironolactone 25 mg 04/04/23 22:00 04/06/23 21:02 Spironolactone 25 Mg Tablet PO 25 mg QHS CRAIG Administration Protocol Tuberculin PPD 0.1 ml 04/12/23 10:00 Tuberculin,Purif.Prot.Deriv. 50 Tu/Ml Vial ID 04/12/23 10:01 X1 ONE Problem List (Updated 04/04/23 @ 19:[address] Jesse Mixon MD) BPH (benign prostatic hyperplasia) (Acute) Chronic HFrEF (heart failure with reduced ejection fraction) (Chronic) Insomnia (Acute) Subdural hematoma (Acute) Iron deficiency anemia (Acute) Left humeral fracture (Acute) Fall (Acute) Atrial fibrillation (Acute) Hyperlipidemia (Acute) Hypertension (Chronic) Debility (Acute) GERD (gastroesophageal reflux disease) (Chronic) Vital Signs Temp Pulse Resp BP Pulse Ox O2 Del Method 97.8 F 69 17 171/58 H 98 Room Air 04/06/23 08:30 04/07/23 14:21 04/06/23 08:30 04/07/23 14:21 04/06/23 08:30 04/06/23 10:00 Oxygen Delivery Method Room Air Weight: 87.906 kg Body Mass Index (BMI) 24.0 Sodium 136 mmol/L (136-145) 04/05/23 08:10 Potassium 4.2 mmol/L (3.5-5.1) 04/05/23 08:10 Chloride 107 mmol/L (98-107) 04/05/23 08:10 Carbon Dioxide 24.0 mmol/L (21.0-32.0) 04/05/23 08:10 Anion Gap 5 (5-15) 04/05/23 08:10 BUN 25 mg/dL (7-18) H 04/05/23 08:10 Creatinine 0.91 mg/dL (0.70-1.30) 04/05/23 08:10 Est GFR (MDRD) Af Amer 103 mL/min (>60) 04/05/23 08:10 Est GFR (MDRD) Non-Af 85 mL/min (>60) 04/05/23 08:10 BUN/Creatinine Ratio 27.4 RATIO (10-20) H 04/05/23 08:10 Glucose 116 mg/dL (74-106) H 04/05/23 08:10 Assessment/Plan: 1. Pain: acetaminophen 1000 mg PO Q6H PRN pain (1-5), oxycodone 5 mg PO Q4H PRN pain (4-10). The patient has used 4 doses of PRN acetaminophen for pain scores of 3-5/10, resulting in pain levels of 0, and has used 5 doses of PRN oxycodone for pain scores 5-8/10 resulting in pain scores of 0-3/10. Please continue to monitor pain levels, PRN medication usage, LFTs (AST/ALT = 10/12 U/L on 04/03/23), for dizziness/drowsiness, for syncope/ataxia/falls, for constipation, and for respiratory depression. 2. Bowel: senna/docusate 1 tablet PO BID, magnesium citrate 300 mL PO daily PRN constipation. The patient has not required any PRN doses of magnesium citrate and his most recent bowel movement was 04/07/23. Please continue to monitor for bowel movements, PRN medication usage, constipation and diarrhea. 3. Hypertension: spironolactone 25 mg PO QHS, amlodipine 10 mg PO QHS, hydralazine 25 mg PO TID. Please continue to monitor blood pressures (recent range = 128-180/52-99 mmHg), renal function (serum creatinine = 0.91 mg/dL with creatinine clearance ~ 79 mL/min on 04/05/23), potassium levels (K = 4.2 mmol/L on 04/05/23), and for s/s of gynecomastia, as well as for lower extremity edema, and heart rates (recent range = 58-80 beats/min). The patient's blood pressures remain elevated despite multiple blood pressure agents, please consider increasing the patient's hydralazine to 50 mg PO TID to hopefully help improve the patient's blood pressures. 4. Hyperlipidemia: atorvastatin 20 mg PO QHS. Please continue to monitor lipid levels (cholesterol = 121 mg/dL with LDL = 52 mg/dL on 12/28/22), and for myalgias. 5. Iron deficiency anemia: iron polysaccharide 150 mg PO daily, ascorbic acid 500 mg PO daily. Please continue to monitor hemoglobin levels (Hgb = 8.0 g/dL on 04/07/23), and iron levels (iron = 16 ug/dL on 04/04/23), as well as for GI distress with iron administration. 6. GERD: pantoprazole 20 mg PO QHS. Please continue to monitor for s/s of GERD, for diarrhea that could indicate clostridium difficile infection, and for s/s of bone resorption such as fractures. 7. Vitamin D deficiency: cholecalciferol 125 mcg PO QHS. Please continue to monitor for s/s of vitamin D deficiency as well as vitamin D levels (vitamin D = 52.5 ng/mL on 12/03/23). 8. Insomnia: melatonin 3 mg PO QHS. Please continue to monitor for drowsiness. Assessment/Plan for indications treated with psychotropic medications: 1. Hypoactive delirium: quetiapine 25 mg PO QHS x 7 days, then 12.5 mg PO QHS x 7 days then stop. Please see provider note regarding that this is GDR for this medication. Please continue to monitor for delirium, for anticholinergic side effects such as delirium, constipation, and urinary retention, for hyperglycemia, for s/s of orthostasis, for sedation, and blood pressures. Medical chart and medication regimen reviewed. The following medication irregularities or issues were identified: 1. Hypertension: spironolactone 25 mg PO QHS, amlodipine 10 mg PO QHS, hydralazine 25 mg PO TID. The patient's blood pressures remain elevated despite multiple blood pressure agents, please consider increasing the patient's hydralazine to 50 mg PO TID to hopefully help improve the patient's blood pressures. Date Date of Note:: 04/07/23 Documented by User: Dr. Jesse Mixon MD 04/07/23 15:39 TCU RX Drug Regimen Review Provider Comments Provider responsibility Provider Comments to Recommendations by Pharmacy: Agree
--- NOTE | 2023-04-07 16:52 | CASEMGMT ---
Social Work Met with patient to complete initial assessment. Pt known to this worker from previous stay. Verified contacts. Patient confirms DNR-CC. Educated to [facility] insurance with NRD 04/09 and continued stay is not guaranteed with each review. SW discussed DC plans with pt. Pt stated he is humbled by this experience as he needs assist with simple tasks. Pt requested PT and OT treat together tomorrow for his safety. Pt would like to return home, but d/t NWB and current assist level, he is aware AL may be the DC plan. Pt stated he has placed a deposit at the [facility], though currently no beds available; the deposit gets pt first dibs . SW will continue to follow for DC planning assistance. Roxanna Wiley, GLORIA OWENSW
[2023-04-07] MEDS: Spironolactone 25 MG Tablet PO (20:40)
[2023-04-07] MEDS: hydrALAZINE 25 MG Tablet 50 MG PO (20:41)
[2023-04-07] MEDS: QUEtiapine 25 MG Tablet PO (20:42)
[2023-04-07] MEDS: Atorvastatin Calcium 20 MG Tablet PO (20:43)
[2023-04-07] MEDS: Cholecalciferol (Vit D3) 125 MCG CAPSULE (5,000 UNITS) PO (20:43)
[2023-04-07] MEDS: amLODIPine 10 MG Tablet PO (20:43)
[2023-04-07] MEDS: MELATONIN 3 MG TABLET PO (20:43)
[2023-04-07] MEDS: Pantoprazole Sodium 20 MG Tablet PO (20:43)
[2023-04-08 05:36] VITALS: BP 160/62; PULSE 60
[2023-04-08] MEDS: hydrALAZINE 25 MG Tablet 50 MG PO ×3 (05:36→21:43)
[2023-04-08 05:42] VITALS: BP 160/62; PULSE 60
[2023-04-08 06:02] LABS: Hematocrit 27.1 % (40-54); Hemoglobin 8.6 g/dL (13.0-16.5)
[2023-04-08] MEDS: Iron Polysaccharide Complex 150 MG CAPSULE PO (08:39)
[2023-04-08] MEDS: Ascorbic Acid 500 MG Tablet PO (08:39)
[2023-04-08] MEDS: Nystatin Powder 15gm Bottle 1 APPLIC TOPICAL ×2 (08:39→21:42)
[2023-04-08] MEDS: Senna/Docusate Sodium 1 Tablet PO ×2 (08:39→21:41)
[2023-04-08 10:01] VITALS: BMI 23.6
[2023-04-08] MEDS: oxyCODONE 5 MG Tablet PO (11:33)
[2023-04-08 14:41] VITALS: BP 140/89; PULSE 65
[2023-04-08] MEDS: Acetaminophen 500 MG Tablet 1000 MG PO ×2 (14:46→21:45)
[2023-04-08 16:56] VITALS: BP 133/47; PULSE 61; RESP 18; TEMP 36.8; O2SAT 99
[2023-04-08] MEDS: Pantoprazole Sodium 20 MG Tablet PO (21:41)
[2023-04-08] MEDS: amLODIPine 10 MG Tablet PO (21:41)
[2023-04-08] MEDS: Spironolactone 25 MG Tablet PO (21:41)
[2023-04-08] MEDS: Atorvastatin Calcium 20 MG Tablet PO (21:41)
[2023-04-08] MEDS: MELATONIN 3 MG TABLET PO (21:41)
[2023-04-08] MEDS: QUEtiapine 25 MG Tablet PO (21:42)
[2023-04-08] MEDS: Cholecalciferol (Vit D3) 125 MCG CAPSULE (5,000 UNITS) PO (21:42)
[2023-04-08 21:43] VITALS: BP 146/55; PULSE 64
[2023-04-08 21:49] VITALS: BP 146/55; PULSE 64
[2023-04-09 05:05] VITALS: BP 152/56; PULSE 72
[2023-04-09] MEDS: hydrALAZINE 25 MG Tablet 50 MG PO ×3 (05:05→21:00)
[2023-04-09 05:08] VITALS: BP 152/56; PULSE 72
[2023-04-09 05:55] LABS: Hematocrit 23.8 % (40-54); Hemoglobin 7.5 g/dL (13.0-16.5)
[2023-04-09] MEDS: Senna/Docusate Sodium 1 Tablet PO ×2 (09:37→21:00)
[2023-04-09] MEDS: Ascorbic Acid 500 MG Tablet PO (09:38)
[2023-04-09] MEDS: Nystatin Powder 15gm Bottle 1 APPLIC TOPICAL ×2 (09:38→20:59)
[2023-04-09] MEDS: Iron Polysaccharide Complex 150 MG CAPSULE PO (09:38)
[2023-04-09] MEDS: Magnesium Citrate 300 ML PO (12:36)
[2023-04-09 14:44] VITALS: BP 172/58; PULSE 71
[2023-04-09 15:47] VITALS: BP 172/58; PULSE 71; RESP 16; TEMP 37.1; O2SAT 98
[2023-04-09 19:55] VITALS: PULSE 83; RESP 18; O2SAT 99
[2023-04-09] MEDS: QUEtiapine 25 MG Tablet PO (20:59)
[2023-04-09 21:00] VITALS: BP 165/55; PULSE 63
[2023-04-09] MEDS: amLODIPine 10 MG Tablet PO (21:00)
[2023-04-09] MEDS: MELATONIN 3 MG TABLET PO (21:00)
[2023-04-09] MEDS: Spironolactone 25 MG Tablet PO (21:00)
[2023-04-09] MEDS: Pantoprazole Sodium 20 MG Tablet PO (21:00)
[2023-04-09] MEDS: Atorvastatin Calcium 20 MG Tablet PO (21:00)
[2023-04-09] MEDS: Cholecalciferol (Vit D3) 125 MCG CAPSULE (5,000 UNITS) PO (21:01)
[2023-04-09] MEDS: Acetaminophen 500 MG Tablet 1000 MG PO (21:05)
--- NOTE | 2023-04-10 05:49 | NURSING ---
Written communication left for Dr. Mixon regarding occult stool result.
[2023-04-10 05:55] LABS: Hematocrit 25.8 % (40-54); Hemoglobin 8.2 g/dL (13.0-16.5)
[2023-04-10] MEDS: Acetaminophen 500 MG Tablet 1000 MG PO ×3 (06:13→20:06)
[2023-04-10 06:14] VITALS: BP 125/53; PULSE 65
[2023-04-10] MEDS: hydrALAZINE 25 MG Tablet 50 MG PO ×3 (06:14→20:06)
[2023-04-10 09:04] VITALS: BP 157/54; PULSE 70; RESP 20; TEMP 36.9; O2SAT 97
[2023-04-10] MEDS: Nystatin Powder 15gm Bottle 1 APPLIC TOPICAL ×2 (09:08→20:08)
[2023-04-10] MEDS: Iron Polysaccharide Complex 150 MG CAPSULE PO (09:08)
[2023-04-10] MEDS: oxyCODONE 5 MG Tablet PO (09:08)
[2023-04-10] MEDS: Ascorbic Acid 500 MG Tablet PO (09:08)
[2023-04-10] MEDS: Senna/Docusate Sodium 1 Tablet PO ×2 (09:08→20:07)
--- NOTE | 2023-04-10 11:47 | NURSING ---
Addendum entered by Radha Muñoz 04/10/23 13:44: Per Dr. Burks, plan for EGD in the morning. Addendum entered by Radha Muñoz 04/10/23 13:37: Dr. Burks at bedside evaluating patient and discussing POC. Family present. Original Note: Consult called into [facility]. No answer on nurse line. Message left with consult information. Requested call back to confirm message regarding new consult was received. Call back number left. Waiting return call.
--- NOTE | 2023-04-10 13:39 | MDS.RN ---
Pain interview for mds completed.
[2023-04-10 15:07] VITALS: BP 139/47; PULSE 62
[2023-04-10 15:10] VITALS: PULSE 62
[2023-04-10 19:45] VITALS: PULSE 63; RESP 16; O2SAT 97
[2023-04-10 20:06] VITALS: BP 150/55; PULSE 63
[2023-04-10] MEDS: MELATONIN 3 MG TABLET PO (20:06)
[2023-04-10] MEDS: Pantoprazole Sodium 20 MG Tablet PO (20:07)
[2023-04-10] MEDS: amLODIPine 10 MG Tablet PO (20:07)
[2023-04-10] MEDS: Atorvastatin Calcium 20 MG Tablet PO (20:07)
[2023-04-10] MEDS: Spironolactone 25 MG Tablet PO (20:07)
[2023-04-10] MEDS: QUEtiapine 25 MG Tablet PO (20:08)
[2023-04-10] MEDS: Cholecalciferol (Vit D3) 125 MCG CAPSULE (5,000 UNITS) PO (20:08)
--- NOTE | 2023-04-11 08:51 | NURSING ---
Sheet Combining Operator Note; MDS for 04/11/2023 Complete
--- NOTE | 2023-04-11 10:05 | CASEMGMT ---
Social Work IDT met with patient and son via conference call for care plan meeting. Discussed patient's progress in PT/OT/SN. Pt progressing well, but is preferring to have two people to assist with tasks d/t pts own comfort. IDT recommending 24/ care and agrees AL would be appropriate. Pt remains agreeable to AL at [facility]. Son stated he is unsure when AL would have a bed. SW educated to [facility] insurance with NRD 04/16 and requesting DC plans in place. SW to fax referral to AL to determine official acceptance and bed availability. Will continue to follow. GLORIA WhiteW
--- NOTE | 2023-04-11 10:07 | NS ---
Res requesting diet change to Regular - does not want therapeutic diet.
[2023-04-11] MEDS: Ascorbic Acid 500 MG Tablet PO (12:56)
[2023-04-11] MEDS: Senna/Docusate Sodium 1 Tablet PO ×2 (12:56→21:36)
[2023-04-11] MEDS: Nystatin Powder 15gm Bottle 1 APPLIC TOPICAL ×2 (12:56→21:37)
[2023-04-11] MEDS: Iron Polysaccharide Complex 150 MG CAPSULE PO (12:56)
[2023-04-11 14:19] VITALS: BP 155/53; PULSE 59; RESP 18; TEMP 37.2; O2SAT 98
--- NOTE | 2023-04-11 14:32 | CASEMGMT ---
Social Work BIMS () and PHQ-2 () completed for MDS assessment. Roxanna Wiley, COMMERCIAL TRUCK DRIVER BAND DIRECTOR
[2023-04-11] MEDS: Acetaminophen 500 MG Tablet 1000 MG PO ×2 (14:41→21:36)
[2023-04-11 14:42] VITALS: BP 155/53; PULSE 61
[2023-04-11] MEDS: hydrALAZINE 25 MG Tablet 50 MG PO ×2 (14:42→21:36)
[2023-04-11] MEDS: oxyCODONE 5 MG Tablet PO (15:15)
[2023-04-11 21:36] VITALS: BP 160/52; PULSE 57
[2023-04-11] MEDS: Atorvastatin Calcium 20 MG Tablet PO (21:36)
[2023-04-11] MEDS: MELATONIN 3 MG TABLET PO (21:36)
[2023-04-11] MEDS: Pantoprazole Sodium 20 MG Tablet PO (21:36)
[2023-04-11] MEDS: Cholecalciferol (Vit D3) 125 MCG CAPSULE (5,000 UNITS) PO (21:36)
[2023-04-11] MEDS: amLODIPine 10 MG Tablet PO (21:36)
[2023-04-11] MEDS: QUEtiapine 25 MG Tablet PO (21:37)
[2023-04-11] MEDS: Spironolactone 25 MG Tablet PO (21:37)
[2023-04-12] VITALS (7 sets, daily range): BP systolic 149–155; BP diastolic 43–81; PULSE 58–69; RESP 16–18; TEMP 37.6; O2SAT 96–98
[2023-04-12] MEDS: Acetaminophen 500 MG Tablet 1000 MG PO ×3 (05:30→20:42)
[2023-04-12] MEDS: hydrALAZINE 25 MG Tablet 50 MG PO ×3 (05:32→20:41)
[2023-04-12 08:14] LABS: Absolute Neutrophil Count 4.5 X10^3/uL (2.0-7.7); Basophil# 0.04 X10^3/uL; Basophil% 0.6 % (0-1); Hematocrit 24.1 % (40-54); Hemoglobin 7.6 g/dL (13.0-16.5); Lymphocyte % 19.3 % (19-41); Mean Corp Hgb Conc 31.5 g/dL (32-36); Mean Corpuscular Hgb 28.3 pg (27.0-32.0); Mean Corpuscular Volume 89.6 fL (80-94); Mean Platelet Vol. 9.2 fl (6.2-12.0); Monocyte% 8.9 % (0-10); NRBC Flagged by Analyzer 0 % (0-5); Neutrophil # 4.53 X10^3/uL (2.7-7.7); Neutrophil % 67.3 % (47-70); Platelet Count 305 K/mm3 (150-450); RBC Distribution Width CV 14.1 % (11.6-14.6); RBC Distribution Width SD 45.7 fl (35.1-43.9); Red Blood Count 2.69 M/mm3 (4.6-6.2); White Blood Count 6.7 K/mm3 (4.4-11.0)
[2023-04-12 08:26] LABS: Anion Gap 5 (5-15); BUN 30 mg/dL (7-18); Chloride 105 mmol/L (98-107); EST Glomerular Filtration Rate 77 mL/min (>60); Est Glom Filt Rate - Afr Amer 93 mL/min (>60); Estimated Creatinine Clearance 71.59 ml/min; Glucose 104 mg/dL (74-106); Potassium 4.5 mmol/L (3.5-5.1); Sodium Level 135 mmol/L (136-145)
[2023-04-12] MEDS: oxyCODONE 5 MG Tablet PO ×2 (08:58→20:38)
[2023-04-12] MEDS: Iron Polysaccharide Complex 150 MG CAPSULE PO (08:59)
[2023-04-12] MEDS: Ascorbic Acid 500 MG Tablet PO (08:59)
[2023-04-12] MEDS: Senna/Docusate Sodium 1 Tablet PO ×2 (08:59→20:42)
[2023-04-12] MEDS: Nystatin Powder 15gm Bottle 1 APPLIC TOPICAL ×2 (09:00→20:43)
[2023-04-12] MEDS: Tuberculin,Purif.prot.deriv. 50 TU/ML Vial 0.100000000000000006 ML ID (11:27)
[2023-04-12] MEDS: 0.9% Saline Lock 10 ML Syringe IV (20:38)
[2023-04-12] MEDS: Spironolactone 25 MG Tablet PO (20:40)
[2023-04-12] MEDS: Atorvastatin Calcium 20 MG Tablet PO (20:41)
[2023-04-12] MEDS: amLODIPine 10 MG Tablet PO (20:41)
[2023-04-12] MEDS: MELATONIN 3 MG TABLET PO (20:41)
[2023-04-12] MEDS: Pantoprazole Sodium 20 MG Tablet PO (20:42)
[2023-04-12] MEDS: Cholecalciferol (Vit D3) 125 MCG CAPSULE (5,000 UNITS) PO (20:42)
[2023-04-12] MEDS: QUEtiapine 25 MG Tablet 12.5 MG PO (20:42)
[2023-04-13] VITALS (7 sets, daily range): BP systolic 116–157; BP diastolic 43–61; PULSE 60–67; RESP 15–16; TEMP 37.2; O2SAT 97
[2023-04-13] MEDS: hydrALAZINE 25 MG Tablet 50 MG PO ×2 (05:09→13:53)
[2023-04-13] MEDS: Acetaminophen 500 MG Tablet 1000 MG PO ×3 (05:10→20:40)
[2023-04-13] MEDS: Nystatin Powder 15gm Bottle 1 APPLIC TOPICAL ×2 (08:17→20:44)
[2023-04-13] MEDS: oxyCODONE 5 MG Tablet PO ×2 (08:17→13:54)
[2023-04-13] MEDS: Iron Polysaccharide Complex 150 MG CAPSULE PO (08:17)
[2023-04-13] MEDS: Ascorbic Acid 500 MG Tablet PO (08:18)
[2023-04-13] MEDS: Senna/Docusate Sodium 1 Tablet PO ×2 (08:18→20:43)
--- NOTE | 2023-04-13 09:02 | NURSING ---
Patient left unit for blood transfusion to [facility].
--- NOTE | 2023-04-13 13:54 | NURSING ---
Nurse took 1400 medications with a PRN Oxy 5mg to patient on [facility]. Patient took PO medications w/o difficulties. No further needs at this time.
--- NOTE | 2023-04-13 16:54 | NURSING ---
Patient returned to unit.
[2023-04-13] MEDS: Magnesium Citrate 300 ML PO (18:04)
[2023-04-13] MEDS: 0.9% Saline Lock 10 ML Syringe IV (20:38)
[2023-04-13] MEDS: Spironolactone 25 MG Tablet PO (20:42)
[2023-04-13] MEDS: Atorvastatin Calcium 20 MG Tablet PO (20:42)
[2023-04-13] MEDS: MELATONIN 3 MG TABLET PO (20:42)
[2023-04-13] MEDS: Pantoprazole Sodium 20 MG Tablet PO (20:43)
[2023-04-13] MEDS: QUEtiapine 25 MG Tablet 12.5 MG PO (20:43)
[2023-04-13] MEDS: Cholecalciferol (Vit D3) 125 MCG CAPSULE (5,000 UNITS) PO (20:44)
[2023-04-13] MEDS: amLODIPine 10 MG Tablet PO (20:44)
--- NOTE | 2023-04-13 21:22 | NURSING ---
Spoke w/ Dr. Mixon via phone. Updated on pt request to increase Senna-S to 2 tablets po BID d/t constipation. New order received and read back for previous noted order. Order reflected on MAY.
[2023-04-14] MEDS: Acetaminophen 500 MG Tablet 1000 MG PO ×3 (05:45→21:46)
[2023-04-14 05:46] VITALS: BP 149/58; PULSE 61
[2023-04-14] MEDS: hydrALAZINE 25 MG Tablet 50 MG PO ×3 (05:46→21:45)
[2023-04-14] MEDS: oxyCODONE 5 MG Tablet PO (08:34)
[2023-04-14] MEDS: Senna/Docusate Sodium 1 Tablet 2 TABLET PO ×2 (08:34→21:46)
[2023-04-14] MEDS: Nystatin Powder 15gm Bottle 1 APPLIC TOPICAL ×2 (08:35→21:48)
[2023-04-14] MEDS: Iron Polysaccharide Complex 150 MG CAPSULE PO (08:35)
[2023-04-14] MEDS: Ascorbic Acid 500 MG Tablet PO (08:35)
[2023-04-14] MEDS: 0.9% Saline Lock 10 ML Syringe IV (08:37)
[2023-04-14 09:30] VITALS: BP 150/55; PULSE 60; RESP 18; TEMP 36.9; O2SAT 96
[2023-04-14 10:00] VITALS: RESP 16; O2SAT 96
[2023-04-14 13:35] VITALS: BP 154/57; PULSE 72
[2023-04-14 17:55] LABS: Hematocrit 30.2 % (40-54); Hemoglobin 9.6 g/dL (13.0-16.5)
[2023-04-14 21:45] VITALS: BP 153/57; PULSE 65
[2023-04-14] MEDS: amLODIPine 10 MG Tablet PO (21:46)
[2023-04-14] MEDS: MELATONIN 3 MG TABLET PO (21:46)
[2023-04-14] MEDS: Pantoprazole Sodium 20 MG Tablet PO (21:47)
[2023-04-14] MEDS: Atorvastatin Calcium 20 MG Tablet PO (21:47)
[2023-04-14] MEDS: QUEtiapine 25 MG Tablet 12.5 MG PO (21:47)
[2023-04-14] MEDS: Cholecalciferol (Vit D3) 125 MCG CAPSULE (5,000 UNITS) PO (21:48)
[2023-04-14] MEDS: Spironolactone 25 MG Tablet PO (21:48)
[2023-04-15] MEDS: Acetaminophen 500 MG Tablet 1000 MG PO ×3 (06:26→20:41)
[2023-04-15 06:27] VITALS: BP 145/56; PULSE 99
[2023-04-15] MEDS: hydrALAZINE 25 MG Tablet 50 MG PO ×3 (06:27→20:41)
[2023-04-15] MEDS: Iron Polysaccharide Complex 150 MG CAPSULE PO (08:46)
[2023-04-15] MEDS: Nystatin Powder 15gm Bottle 1 APPLIC TOPICAL ×2 (08:46→20:43)
[2023-04-15] MEDS: Senna/Docusate Sodium 1 Tablet 2 TABLET PO ×2 (08:46→20:43)
[2023-04-15] MEDS: Ascorbic Acid 500 MG Tablet PO (08:46)
[2023-04-15 09:23] VITALS: RESP 16; O2SAT 96
--- NOTE | 2023-04-15 09:49 | CASEMGMT ---
Social Work SW phoned [facility] to f/u on referral and bed availability. There are no openings and unsure when there would be. SW phoned son to inquire about DC plan as insurance requested update this date and likely to issue LCD. Son unsure and agreed to review AL and SNF lists. Pt would admit private pay. Son provided email and this worker sent secure email of AL lists, then SNF list in [facility] with quality and resource data via [employer]. Son to speak with pt and select preferences. SW will continue to follow. GLORIA WhiteW
[2023-04-15 10:00] VITALS: BMI 23.8
--- NOTE | 2023-04-15 11:18 | MDS.RN ---
Information for the mds was obtained from review of the clinical record, interview of resident, staff, and direct observation of resident's care.
[2023-04-15 14:51] VITALS: BP 169/52; PULSE 64
[2023-04-15 15:28] VITALS: BP 165/51; PULSE 78; RESP 16; TEMP 36.8; O2SAT 93
[2023-04-15] MEDS: Spironolactone 25 MG Tablet PO (20:40)
[2023-04-15] MEDS: oxyCODONE 5 MG Tablet PO (20:40)
[2023-04-15 20:41] VITALS: BP 163/55; PULSE 73
[2023-04-15] MEDS: MELATONIN 3 MG TABLET PO (20:42)
[2023-04-15] MEDS: Atorvastatin Calcium 20 MG Tablet PO (20:42)
[2023-04-15] MEDS: amLODIPine 10 MG Tablet PO (20:42)
[2023-04-15] MEDS: Pantoprazole Sodium 20 MG Tablet PO (20:42)
[2023-04-15] MEDS: QUEtiapine 25 MG Tablet 12.5 MG PO (20:42)
[2023-04-15] MEDS: Cholecalciferol (Vit D3) 125 MCG CAPSULE (5,000 UNITS) PO (20:43)
[2023-04-15 20:47] VITALS: BP 163/55; PULSE 73
[2023-04-16 05:59] LABS: Hematocrit 31.5 % (40-54)
[2023-04-16] MEDS: Acetaminophen 500 MG Tablet 1000 MG PO ×3 (06:02→20:56)
[2023-04-16 06:03] VITALS: BP 144/60; PULSE 67
[2023-04-16] MEDS: hydrALAZINE 25 MG Tablet 50 MG PO ×3 (06:03→20:57)
[2023-04-16 06:06] VITALS: BP 144/60; PULSE 67
--- NOTE | 2023-04-16 08:44 | CASEMGMT ---
Social Work Received return email from son stating he and his sister are unsure of the destination for DC as they are unfamiliar with other facilities. However, are requesting a referral to [facility] in [place] for availability. Son noted pt will be financial conscience when making a decision for placement. Son stated if an AL cannot accept with short notice, pt will need to transfer to a SNF. SW sent referral to [facility] via [employer]. Will await outcome of referral and insurance update. Will continue to follow. GLORIA WhiteW
[2023-04-16] MEDS: Senna/Docusate Sodium 1 Tablet 2 TABLET PO ×2 (09:40→20:56)
[2023-04-16] MEDS: Ascorbic Acid 500 MG Tablet PO (09:40)
[2023-04-16] MEDS: Nystatin Powder 15gm Bottle 1 APPLIC TOPICAL ×2 (09:40→20:55)
[2023-04-16] MEDS: Iron Polysaccharide Complex 150 MG CAPSULE PO (09:40)
--- NOTE | 2023-04-16 10:38 | CASEMGMT ---
Addendum entered by Roxanna Wiley 04/17/23 09:16: Received email from son stating the family can provide furniture for a move in date. Son is visiting [place] [facility] today and will inquire about their openings, however, family still prefers pt remain in [facility]. SW offered to send referral for [place]. Son also stated he would like to appeal the insurance decision. SW explained rights and provided contact information to son. SW emailed up to admissions at [facility] and offered to complete onsite for LOC costs. Will continue to follow. Addendum entered by Roxanna Wiley 04/16/23 14:06: SW phoned admissions at [facility] to follow up on referral. Admissions has not given clinical acceptance yet, but does have one studio apartment avilable and pt would need to provide furniture. Pt could only admit M-F as well. Received estimated nance ranges to report to pt/family. SW to phone son and speak with pt on above. Original Note: Social Work Insurance issued LCD 04/18, DC 04/19. SW phoned [facility] and confirmed referral received. SW sent updated email to son on LCD and recommended providing additional facilities to place referrals. CHANO met with patient to update on LCD and [facility] referral. Inquired about FOC for DC. Pt has no preference and will follow the son and dtrs' choices. SW will continue to follow. GLORIA White
[2023-04-16 14:13] VITALS: BP 152/55; PULSE 81; RESP 18; TEMP 36.8; O2SAT 96
[2023-04-16 14:39] VITALS: BP 152/55; PULSE 81
--- NOTE | 2023-04-16 19:23 | DS.PCM_ITS ---
Providers Date of Admission: 04/04/23 Primary Care Physician: LIOR Laura Consultations 04/10/23 07:27 Consult: Gastroenterology Routine Consulting Provider: Franny Gastroenter[facility] Reason for Consult: Anemia, +stool guaiac. EMERGENT Consult: No MD Notified: Yes Date Notified: 04/10/23 Time Notified: 13:38 Method of Notification: Verbal Reason For Visit: LEFT HUMERUS FRACTURE, FALL Diagnosis Discharge Diagnosis (1) Debility: Status: Acute Code(s): R53.81 - Other malaise (2) Fall: Status: Acute Code(s): W19.XXXA - Unspecified fall, initial encounter (3) Left humeral fracture: Status: Acute Code(s): S42.302A - Unspecified fracture of shaft of humerus, left arm, initial encounter for closed fracture (4) Iron deficiency anemia: Status: Acute Code(s): D50.9 - Iron deficiency anemia, unspecified (5) Subdural hematoma: Status: Acute Code(s): S06.5XAA - Traumatic subdural hemorrhage with loss of consciousness status unknown, initial encounter (6) Hypertension: Status: Chronic Code(s): I10 - Essential (primary) hypertension (7) Hyperlipidemia: Status: Acute Code(s): E78.5 - Hyperlipidemia, unspecified (8) Insomnia: Status: Acute Code(s): G47.00 - Insomnia, unspecified (9) GERD (gastroesophageal reflux disease): Status: Chronic Code(s): K21.9 - Gastro-esophageal reflux disease without esophagitis (10) Chronic HFrEF (heart failure with reduced ejection fraction): Status: Chronic Code(s): I50.22 - Chronic systolic (congestive) heart failure (11) BPH (benign prostatic hyperplasia): Status: Acute Code(s): N40.0 - Benign prostatic hyperplasia without lower urinary tract symptoms (12) Atrial fibrillation: Status: Acute Code(s): I48.91 - Unspecified atrial fibrillation Plan 77 year old male with below past medical history hospitalized for left humerus fracture, treated nonoperatively, complicated by anemia, admitted to TCU with debility, here for rehabilitation, strengthening, prior to discharge home alone. * Debility - PT/OT. * Pain - Tylenol 1000mg q6 prn pain (1-5), Oxycodone 5mg q4 prn pain (6-10). * Bowel - senna/colace 1 tablet bid, Magnesium citrate 300ml daily prn. * Adult immunization - Administer pneumonia vaccine, covid vaccine, flu vaccine as appropriate. * DVT prophylaxis - Hold, SDH. * Hypertension - Aldactone 25mg qhs, Amlodipine 5mg qhs. * Hyperlipidemia - Atorvastatin 20mg qhs. * Vitamin D deficiency - D3 5000IU daily, * Iron deficiency anemia - Ferrex 150mg daily, Vitamin C 500mg daily. * Insomnia - Melatonin 3mg qhs. * GERD - Pantoprazole 20mg qhs. * Hypoactive delirium - start GDR, lower Seroquel to 25mg qhs x 7 days, then 12.5mg qhs x 7 days, then stop. Medications at Discharge Home Medications atorvastatin 20 mg tablet 20 mg PO QHS CHOLESTEROL 04/05/19 omeprazole 20 mg capsule,delayed release 20 mg PO QHS ACID REFLUX 10/09/21 cholecalciferol (vitamin D3) 125 mcg (5,000 unit) capsule 125 mcg PO QHS SUPPLEMENT 04/02/23 melatonin 3 mg tablet 3 mg PO QHS SLEEP 04/02/23 spironolactone 25 mg tablet 25 mg PO QHS BLOOD PRESSURE 04/02/23 acetaminophen 500 mg tablet 1,000 mg (2 x 500 mg) PO Q8 #0 tabs 04/16/23 amlodipine 10 mg tablet 10 mg PO QHS 30 days #30 tabs 04/16/23 ascorbic acid (vitamin C) 500 mg tablet 500 mg PO 1000 30 days #30 tabs 04/16/23 hydralazine 25 mg tablet 50 mg (2 x 25 mg) PO TID 30 days #180 tabs 04/16/23 oxycodone 5 mg tablet 5 mg PO Q4H PRN PRN Pain Score 4-10 7 days #42 tabs polysaccharide iron complex 150 mg iron capsule (Ferrex) 150 mg PO DAILY 30 days #30 caps 04/16/23 sennosides 8.6 mg-docusate sodium 50 mg tablet (Stool Softener-Stimulant Laxative) 2 tab PO BID 30 days #120 tabs 04/16/23 Hospital Course Operations None Procedures None Summary of Care Provided Minutes Spent on Discharge: 35 Hospital Course: 77 year old male with below past medical history hospitalized for left humerus fracture, treated nonoperatively, complicated by anemia, admitted to TCU with debility, here for rehabilitation, strengthening, prior to discharge home alone. 04/11/2023 Friend EGD: Impressions : - Normal esophagus. - Normal stomach. - Erythematous duodenopathy. Biopsied. Discharge to [facility] 04/19/2023, [facility] PT/OT/[place]. Physical Exam Const alert General Appearance: cooperative HEENT normocephalic Eyes PERRL and EOMs intact bilaterally Neck supple, no JVD and no carotid bruits Resp normal respiratory effort, normal air movement and clear to auscultation bilaterally Cardio regular rate and regular rhythm GI normal to inspection, nondistended, normoactive bowel sounds, non-tender and non-distended Extremity normal capillary refill Extremity Narrative: Left upper extremity sling. General Extremity: Negative for edema Skin no rashes or lesions noted General Skin Exam: no breakdown Psych affect normal Appearance: appropriate Weight / BMI Weight Weight: 86.727 kg Body Mass Index (BMI) 23.8 ABG / Lab / Microbiology Data 04/16/23 05:40 04/12/23 07:19 Laboratory: Laboratory Results - last 24 hr 04/16/23 05:40: Hgb 10.0 L, Hct 31.5 L Microbiology: Microbiology 04/14/23 07:15 Nasal Secretion SARS-CoV-2 Antigen (Rapid) - Final 04/10/23 06:14 Nasal Secretion SARS-CoV-2 Antigen (Rapid) - Final 04/09/23 18:40 Stool Stool Occult Blood (DOUG) - Final Occult Blood Positive 04/07/23 05:23 Nasal Secretion SARS-CoV-2 Antigen (Rapid) - Final D/C Instructions Discharge Diet: No restrictions Discharge Activity: Return to Normal Activity, May Shower and Use Walker Weight Bearing Status: No weight bearing (Left upper extremity.) Call your doctor if you observe: Fever of 101 or Higher, Inability to urinate, Inability to have a bowel movement, Shortness of breath, Dizziness, Fainting spe lls, Swelling in the ankles, Chest pain and Uncontrolled pain Additional Instructions: Discharge to [facility] 04/19/2023, [facility] PT/OT/[place]. Meaningful Use Info Meaningful Use Diagnoses (Choose all that apply): None applicable Discharge Plan Admission Admit Date/Time: 04/04/23 18:05 Primary Reason for Your Visit: Debility. Attending Provider: Jesse Mixon Chi Primary Care Provider: Neida Brewer Instructions Additional Instructions / Restrictions: Discharge to [facility] 04/19/2023, [facility] PT/OT/[place]. Discharge Orders/Prescriptions Prescriptions: New acetaminophen 500 mg Tablet 1,000 mg PO Q8 Qty: 0 0RF ascorbic acid (vitamin C) 500 mg Tablet 500 mg PO 1000 30 Days Qty: 30 0RF amlodipine 10 mg Tablet 10 mg PO QHS 30 Days Qty: 30 0RF oxycodone 5 mg Tablet 5 mg PO Q4H PRN PRN (Reason: Pain Score 4-10) 7 Days Qty: 42 0RF polysaccharide iron complex [Ferrex 150] 150 mg iron Capsule 150 mg PO DAILY 30 Days Qty: 30 0RF hydralazine 25 mg Tablet 50 mg PO TID 30 Days Qty: 180 0RF sennosides-docusate sodium [Stool Softener-Stimulant Laxat] 8.6-50 mg Tablet 2 tab PO BID 30 Days Qty: 120 0RF Continued atorvastatin 20 mg tablet 20 mg PO QHS omeprazole 20 mg capsule,delayed release(DR/EC) 20 mg PO QHS cholecalciferol (vitamin D3) 125 mcg (5,000 unit) capsule 125 mcg PO QHS spironolactone 25 mg Tablet 25 mg PO QHS melatonin 3 mg tablet 3 mg PO QHS Discontinued quetiapine 25 mg Tablet 50 mg PO QHS 30 Days Qty: 60 0RF amlodipine 5 mg tablet 5 mg PO QHS acetaminophen [Acetaminophen Extra Strength] 500 mg tablet 1,000 mg PO TID PRN (Reason: PAIN ) ferrous sulfate 325 mg (65 mg iron) tablet 325 mg PO DAILY Qty: 1 0RF oxycodone 5 mg Tablet 5 mg PO Q4H PRN PRN (Reason: Pain Score 4-10) 3 Days Qty: 10 0RF Referrals / Follow Up: Acosta Davies MD [Med Staff - Active Staff] - (follow-up after fracture) Neida Brewer NP-C [Primary Care Provider] - Disposition Disposition (needs filled in before D/C Order can be placed): Assisted Living
--- NOTE | 2023-04-16 19:31 | TREXTCAR_ITS ---
Diet Diet Order/Speech Therapy: 04/11/23 10:08 Diet: Regular - General Is pt able to select menu?: Yes Diet Comments: one salt packet per meal Routine Orders/Code Status Code Status: DNRCC Wound(s) right scalp: Wound Type: Laceration right back: Wound Type: sebaceous cyst groin: Wound Type: growth right second toe: Wound Type: Abrasion Therapies Weight Bearing: Non weight bearing Extremity Affected:: Left Upper Physical Therapy: Eval and Treat Occupational Therapy: Eval and Treat Problem/Diagnosis (1) Debility: Status: Acute Code(s): R53.81 - Other malaise (2) Fall: Status: Acute Code(s): W19.XXXA - Unspecified fall, initial encounter (3) Left humeral fracture: Status: Acute Code(s): S42.302A - Unspecified fracture of shaft of humerus, left arm, initial encounter for closed fracture (4) Iron deficiency anemia: Status: Acute Code(s): D50.9 - Iron deficiency anemia, unspecified (5) Subdural hematoma: Status: Acute Code(s): S06.5XAA - Traumatic subdural hemorrhage with loss of consciousness status unknown, initial encounter (6) Hypertension: Status: Chronic Code(s): I10 - Essential (primary) hypertension (7) Hyperlipidemia: Status: Acute Code(s): E78.5 - Hyperlipidemia, unspecified (8) Insomnia: Status: Acute Code(s): G47.00 - Insomnia, unspecified (9) GERD (gastroesophageal reflux disease): Status: Chronic Code(s): K21.9 - Gastro-esophageal reflux disease without esophagitis (10) Chronic HFrEF (heart failure with reduced ejection fraction): Status: Chronic Code(s): I50.22 - Chronic systolic (congestive) heart failure (11) BPH (benign prostatic hyperplasia): Status: Acute Code(s): N40.0 - Benign prostatic hyperplasia without lower urinary tract symptoms (12) Atrial fibrillation: Status: Acute Code(s): I48.91 - Unspecified atrial fibrillation Plan 77 year old male with below past medical history hospitalized for left humerus f racture, treated nonoperatively, complicated by anemia, admitted to TCU with debility, here for rehabilitation, strengthening, prior to discharge home alone. * Debility - PT/OT. * Pain - Tylenol 1000mg q6 prn pain (1-5), Oxycodone 5mg q4 prn pain (6-10). * Bowel - senna/colace 1 tablet bid, Magnesium citrate 300ml daily prn. * Adult immunization - Administer pneumonia vaccine, covid vaccine, flu vaccine as appropriate. * DVT prophylaxis - Hold, SDH. * Hypertension - Aldactone 25mg qhs, Amlodipine 5mg qhs. * Hyperlipidemia - Atorvastatin 20mg qhs. * Vitamin D deficiency - D3 5000IU daily, * Iron deficiency anemia - Ferrex 150mg daily, Vitamin C 500mg daily. * Insomnia - Melatonin 3mg qhs. * GERD - Pantoprazole 20mg qhs. * Hypoactive delirium - start GDR, lower Seroquel to 25mg qhs x 7 days, then 12.5mg qhs x 7 days, then stop. Allergies/Procedures Done in Hospital Allergies No Known Allergies Allergy (Verified 04/11/23 10:44) Procedures: None Type of Care/Length of Stay Estimated LOS: More Than 30 Days Type of Care Needed: Intermediate/Assisted Living Rehab Potential: Fair Prognosis: Fair Additional Orders/Day of Discharge Day of Discharge: 04/19/23 Dietary and Speech Recommendations Dietitian Recommendations/Changes: Will continue liberal Regular diet per res request Discharge Plan Admission Admit Date/Time: 04/04/23 18:05 Primary Reason for Your Visit: Debility. Attending Provider: Jesse Mixon Chi Primary Care Provider: Neida Brewer Instructions Additional Instructions / Restrictions: Discharge to [facility] 04/19/2023, [facility] PT/OT/[place]. Discharge Orders/Prescriptions Prescriptions: New acetaminophen 500 mg Tablet 1,000 mg PO Q8 Qty: 0 0RF ascorbic acid (vitamin C) 500 mg Tablet 500 mg PO 1000 30 Days Qty: 30 0RF amlodipine 10 mg Tablet 10 mg PO QHS 30 Days Qty: 30 0RF oxycodone 5 mg Tablet 5 mg PO Q4H PRN PRN (Reason: Pain Score 4-10) 7 Days Qty: 42 0RF polysaccharide iron complex [Ferrex 150] 150 mg iron Capsule 150 mg PO DAILY 30 Days Qty: 30 0RF hydralazine 25 mg Tablet 50 mg PO TID 30 Days Qty: 180 0RF sennosides-docusate sodium [Stool Softener-Stimulant Laxat] 8.6-50 mg Tablet 2 tab PO BID 30 Days Qty: 120 0RF Continued atorvastatin 20 mg tablet 20 mg PO QHS omeprazole 20 mg capsule,delayed release(DR/EC) 20 mg PO QHS cholecalciferol (vitamin D3) 125 mcg (5,000 unit) capsule 125 mcg PO QHS spironolactone 25 mg Tablet 25 mg PO QHS melatonin 3 mg tablet 3 mg PO QHS Discontinued quetiapine 25 mg Tablet 50 mg PO QHS 30 Days Qty: 60 0RF amlodipine 5 mg tablet 5 mg PO QHS acetaminophen [Acetaminophen Extra Strength] 500 mg tablet 1,000 mg PO TID PRN (Reason: PAIN ) ferrous sulfate 325 mg (65 mg iron) tablet 325 mg PO DAILY Qty: 1 0RF oxycodone 5 mg Tablet 5 mg PO Q4H PRN PRN (Reason: Pain Score 4-10) 3 Days Qty: 10 0RF Referrals / Follow Up: Acosta Davies MD [Med Staff - Active Staff] - (follow-up after fracture) Neida Brewer NP-C [Primary Care Provider] - Disposition Disposition (needs filled in before D/C Order can be placed): Assisted Living
[2023-04-16] MEDS: QUEtiapine 25 MG Tablet 12.5 MG PO (20:55)
[2023-04-16] MEDS: Cholecalciferol (Vit D3) 125 MCG CAPSULE (5,000 UNITS) PO (20:55)
[2023-04-16] MEDS: Atorvastatin Calcium 20 MG Tablet PO (20:55)
[2023-04-16] MEDS: MELATONIN 3 MG TABLET PO (20:56)
[2023-04-16] MEDS: Pantoprazole Sodium 20 MG Tablet PO (20:56)
[2023-04-16] MEDS: amLODIPine 10 MG Tablet PO (20:56)
[2023-04-16 20:57] VITALS: BP 150/67; PULSE 83
[2023-04-16] MEDS: Spironolactone 25 MG Tablet PO (20:57)
[2023-04-17 06:03] VITALS: BP 155/48; PULSE 64
[2023-04-17] MEDS: Acetaminophen 500 MG Tablet 1000 MG PO ×3 (06:03→20:48)
[2023-04-17] MEDS: hydrALAZINE 25 MG Tablet 50 MG PO ×3 (06:03→20:49)
[2023-04-17] MEDS: Ascorbic Acid 500 MG Tablet PO (08:50)
[2023-04-17] MEDS: Iron Polysaccharide Complex 150 MG CAPSULE PO (08:50)
[2023-04-17] MEDS: Senna/Docusate Sodium 1 Tablet 2 TABLET PO (08:50)
[2023-04-17] MEDS: Nystatin Powder 15gm Bottle 1 APPLIC TOPICAL ×2 (08:53→20:50)
--- NOTE | 2023-04-17 13:32 | CASEMGMT ---
Addendum entered by Roxanna Wiley 04/18/23 14:00: SW updated pt and phoned son that pt lost his appeal. Proceed with ID as planned. Plan: DC 04/21 to [facility] PT/OT Roxanna ZEE Addendum entered by Roxanna Wiley 04/18/23 11:07: [facility] unable to accept. CHANO sent referrals to several other [facility] agenices via [employer]. [facility] is accepting agency. Original Note: Social Work DON from [facility] completed onsite. [facility] accepted pt and to contact son with pricing. SW received Monitoring Division notification that appeal was filed. . SW continued email correspondence with son. Son and dtr prefer admission to [facility] on 04/21. SW spoke with pt and pt agreeable to pay privately through the weekend. Will await outcome of appeal, but son agreed to provide payment. SW offered skilled [facility] coordination and offered list for son to review. Son denied list and SW to refer to [facility]. No DME needs. Family to transport at ID. SW sent referral to [facility] for PT/OT via [employer]. Plan: pending appeal outcome, DC 04/21 to [facility] PT/OT GLORIA White
[2023-04-17 14:31] VITALS: BP 160/55; PULSE 58
[2023-04-17 14:47] VITALS: BP 171/59; PULSE 75; RESP 19; TEMP 36.4; O2SAT 98
[2023-04-17] MEDS: Spironolactone 25 MG Tablet PO (20:48)
[2023-04-17] MEDS: MELATONIN 3 MG TABLET PO (20:48)
[2023-04-17] MEDS: Cholecalciferol (Vit D3) 125 MCG CAPSULE (5,000 UNITS) PO (20:48)
[2023-04-17] MEDS: Pantoprazole Sodium 20 MG Tablet PO (20:48)
[2023-04-17 20:49] VITALS: BP 155/65; PULSE 84
[2023-04-17] MEDS: amLODIPine 10 MG Tablet PO (20:49)
[2023-04-17] MEDS: QUEtiapine 25 MG Tablet 12.5 MG PO (20:49)
[2023-04-17] MEDS: Atorvastatin Calcium 20 MG Tablet PO (20:49)
[2023-04-18 05:50] VITALS: BP 166/52; PULSE 74
[2023-04-18] MEDS: Acetaminophen 500 MG Tablet 1000 MG PO ×3 (05:50→20:59)
[2023-04-18] MEDS: hydrALAZINE 25 MG Tablet 50 MG PO ×3 (05:50→21:01)
[2023-04-18 06:03] LABS: Hematocrit 31.6 % (40-54)
[2023-04-18] MEDS: Iron Polysaccharide Complex 150 MG CAPSULE PO (08:02)
[2023-04-18] MEDS: Senna/Docusate Sodium 1 Tablet 2 TABLET PO ×2 (08:02→21:00)
[2023-04-18] MEDS: Ascorbic Acid 500 MG Tablet PO (08:03)
[2023-04-18] MEDS: Nystatin Powder 15gm Bottle 1 APPLIC TOPICAL ×2 (08:03→21:03)
[2023-04-18 13:56] VITALS: BP 154/52; PULSE 74
[2023-04-18 16:00] VITALS: BP 161/53; PULSE 50; RESP 16; TEMP 36.6; O2SAT 97
--- NOTE | 2023-04-18 18:09 | CASEMGMT ---
Social Work BIMS () and PHQ-2 () completed for MDS assessment. Roxanna Wiley MSW WATER MAIN INSTALLER HELPER
[2023-04-18] MEDS: Spironolactone 25 MG Tablet PO (21:00)
[2023-04-18 21:01] VITALS: BP 155/44; PULSE 57
[2023-04-18] MEDS: Atorvastatin Calcium 20 MG Tablet PO (21:01)
[2023-04-18] MEDS: amLODIPine 10 MG Tablet PO (21:02)
[2023-04-18] MEDS: MELATONIN 3 MG TABLET PO (21:02)
[2023-04-18] MEDS: QUEtiapine 25 MG Tablet 12.5 MG PO (21:03)
[2023-04-18] MEDS: Cholecalciferol (Vit D3) 125 MCG CAPSULE (5,000 UNITS) PO (21:03)
[2023-04-18] MEDS: Pantoprazole Sodium 20 MG Tablet PO (21:03)
[2023-04-18 21:08] VITALS: BP 155/44; PULSE 57
[2023-04-19 05:19] VITALS: BP 157/46; PULSE 51
[2023-04-19] MEDS: Acetaminophen 500 MG Tablet 1000 MG PO ×3 (05:19→21:41)
[2023-04-19] MEDS: hydrALAZINE 25 MG Tablet 50 MG PO ×3 (05:19→21:42)
[2023-04-19 05:20] VITALS: BP 157/46; PULSE 51
[2023-04-19 07:29] LABS: Absolute Lymphocyte Count 1.69 X10^3/uL (0.83-4.51); Absolute Neutrophil Count 3.6 X10^3/uL (2.0-7.7); Basophil# 0.05 X10^3/uL; Basophil% 0.8 % (0-1); Eosinophil# 0.17 X10^3/uL; Eosinophils% 2.7 % (0-5); Hematocrit 31.8 % (40-54); Lymphocyte # 1.69 X10^3/ul (0.83-4.51); Lymphocyte % 27.3 % (19-41); Mean Corp Hgb Conc 31.4 g/dL (32-36); Mean Corpuscular Hgb 27.6 pg (27.0-32.0); Mean Corpuscular Volume 87.8 fL (80-94); Mean Platelet Vol. 8.9 fl (6.2-12.0); Monocyte% 9.7 % (0-10); NRBC Flagged by Analyzer 0 % (0-5); Neutrophil # 3.63 X10^3/uL (2.7-7.7); Neutrophil % 58.7 % (47-70); Platelet Count 338 K/mm3 (150-450); RBC Distribution Width CV 14.2 % (11.6-14.6); RBC Distribution Width SD 45.5 fl (35.1-43.9); Red Blood Count 3.62 M/mm3 (4.6-6.2); White Blood Count 6.2 K/mm3 (4.4-11.0)
[2023-04-19 07:58] LABS: Anion Gap 3 (5-15); BUN 27 mg/dL (7-18); BUN/Creat Ratio 29.6 RATIO (10-20); Calcium,Total 8.8 mg/dL (8.5-10.1); Chloride 110 mmol/L (98-107); Creatinine, Serum 0.91 mg/dL (0.70-1.30); EST Glomerular Filtration Rate 85 mL/min (>60); Est Glom Filt Rate - Afr Amer 103 mL/min (>60); Estimated Creatinine Clearance 78.67 ml/min; Glucose 94 mg/dL (74-106); Potassium 4.4 mmol/L (3.5-5.1); Sodium Level 136 mmol/L (136-145)
[2023-04-19] MEDS: Iron Polysaccharide Complex 150 MG CAPSULE PO (10:05)
[2023-04-19] MEDS: Senna/Docusate Sodium 1 Tablet 2 TABLET PO (10:05)
[2023-04-19] MEDS: Nystatin Powder 15gm Bottle 1 APPLIC TOPICAL ×2 (10:05→21:44)
[2023-04-19] MEDS: Ascorbic Acid 500 MG Tablet PO (10:05)
[2023-04-19 14:45] VITALS: BP 167/60; PULSE 70
[2023-04-19 14:47] VITALS: BP 167/70; PULSE 70; RESP 18; O2SAT 99
[2023-04-19 15:35] VITALS: TEMP 36.6
[2023-04-19] MEDS: QUEtiapine 25 MG Tablet 12.5 MG PO (21:40)
[2023-04-19] MEDS: Spironolactone 25 MG Tablet PO (21:40)
[2023-04-19 21:42] VITALS: BP 146/56; PULSE 54
[2023-04-19] MEDS: amLODIPine 10 MG Tablet PO (21:42)
[2023-04-19] MEDS: Atorvastatin Calcium 20 MG Tablet PO (21:42)
[2023-04-19] MEDS: Cholecalciferol (Vit D3) 125 MCG CAPSULE (5,000 UNITS) PO (21:43)
[2023-04-19] MEDS: MELATONIN 3 MG TABLET PO (21:43)
[2023-04-19] MEDS: Pantoprazole Sodium 20 MG Tablet PO (21:43)
[2023-04-20] MEDS: Acetaminophen 500 MG Tablet 1000 MG PO ×3 (06:57→22:29)
[2023-04-20 06:58] VITALS: BP 142/56; PULSE 51
[2023-04-20] MEDS: hydrALAZINE 25 MG Tablet 50 MG PO ×3 (06:58→22:31)
[2023-04-20] MEDS: Ascorbic Acid 500 MG Tablet PO (09:22)
[2023-04-20] MEDS: Iron Polysaccharide Complex 150 MG CAPSULE PO (09:22)
[2023-04-20] MEDS: Nystatin Powder 15gm Bottle 1 APPLIC TOPICAL ×2 (09:23→22:42)
[2023-04-20 14:41] VITALS: BP 171/49; PULSE 60
[2023-04-20 14:42] VITALS: BP 171/49; PULSE 60; RESP 18; O2SAT 98
[2023-04-20] MEDS: MELATONIN 3 MG TABLET PO (22:29)
[2023-04-20] MEDS: Senna/Docusate Sodium 1 Tablet 2 TABLET PO (22:29)
[2023-04-20] MEDS: Spironolactone 25 MG Tablet PO (22:30)
[2023-04-20] MEDS: Atorvastatin Calcium 20 MG Tablet PO (22:30)
[2023-04-20 22:31] VITALS: BP 166/62; PULSE 63
[2023-04-20] MEDS: Pantoprazole Sodium 20 MG Tablet PO (22:31)
[2023-04-20] MEDS: amLODIPine 10 MG Tablet PO (22:32)
[2023-04-20] MEDS: Cholecalciferol (Vit D3) 125 MCG CAPSULE (5,000 UNITS) PO (22:33)
[2023-04-20] MEDS: oxyCODONE 5 MG Tablet PO (22:43)
[2023-04-21 06:04] VITALS: BP 152/65; PULSE 52
[2023-04-21] MEDS: hydrALAZINE 25 MG Tablet 50 MG PO (06:04)
[2023-04-21] MEDS: Acetaminophen 500 MG Tablet 1000 MG PO (06:05)
[2023-04-21] MEDS: oxyCODONE 5 MG Tablet PO (06:06)
[2023-04-21] MEDS: Nystatin Powder 15gm Bottle 1 APPLIC TOPICAL (09:01)
[2023-04-21] MEDS: Senna/Docusate Sodium 1 Tablet 2 TABLET PO (09:01)
[2023-04-21] MEDS: Iron Polysaccharide Complex 150 MG CAPSULE PO (09:02)
[2023-04-21] MEDS: Ascorbic Acid 500 MG Tablet PO (09:02)
--- NOTE | 2023-04-21 13:34 | NURSING ---
Report called to nurse Arvizu at [facility]
== END 2023-04-21 13:45 | disposition home health service (06) | DRG 560 ==
PROVIDERS: Admitting Provider Family Medicine Geriatric Medicine; PCP Nurse Practitioner Family; Visit Provider Family Medicine Geriatric Medicine
DX: S42.302D Unspecified fracture of shaft of humerus, left arm, subsequent encounter for fracture with routine healing (principal); I50.22 Chronic systolic (congestive) heart failure; I11.0 Hypertensive heart disease with heart failure; E11.9 Type 2 diabetes mellitus without complications; D50.9 Iron deficiency anemia, unspecified; E78.5 Hyperlipidemia, unspecified; E55.9 Vitamin D deficiency, unspecified; I48.0 Paroxysmal atrial fibrillation; I25.10 Atherosclerotic heart disease of native coronary artery without angina pectoris; K21.9 Gastro-esophageal reflux disease without esophagitis; W19.XXXD Unspecified fall, subsequent encounter; Z87.891 Personal history of nicotine dependence; N40.0 Benign prostatic hyperplasia without lower urinary tract symptoms; G47.00 Insomnia, unspecified; Z79.899 Other long term (current) drug therapy; R41.0 Disorientation, unspecified; S06.5XAD Traumatic subdural hemorrhage with loss of consciousness status unknown, subsequent encounter
CPT/HCPCS: 36415; 80048; 82274; 85014; 85018; 85025; 86850; 86900; 86901; 86920; 86922; 87811; 97110; 97116; 97162; 97166; 97530; 97535; 97802; A4216

== ENCOUNTER 2023-04-11 10:46 | Day surgery (SDC) | payer MEDICARE, SELFPAY ==
[2023-04-11] MEDS: Lactated Ringers 1,000 ML 15 ML IV (10:48)
[2023-04-11 10:49] VITALS: BP 147/53; PULSE 63; RESP 16; TEMP 37.4; O2SAT 96; BMI 23.5
[2023-04-11 11:17] LABS: Bedside Glucose 108 mg/dL (74-106)
--- NOTE | 2023-04-11 11:30 | EGD_PTH ---
PATHOLOGY RESULTS PATIENT: ADA JUNE LOC: EN U#:[id number] AGE/SX: 77/M ROOM: RE04/11/[address]: Dr. Jerald Burks DO : 1945 BED: DIS: 04/11/2023 SPEC #: [id number] RECD: 04/14/23 07:28 STATUS: EDWARD RAVI #: [id number] KIMBERLY: 04/11/23 11:[address]: Jerald Burks DEPT: SURGICAL PATHOLOGY RECD BY: Gabrielle Osuna ENTERED: 04/14/23 07:28 SP TYPE: EGD BIOPSY Tissues: Duodenum, NOS Procedures: Surgery Specimen Level IV HEADER OPERATION: EGD, biopsy PRE-OP DIAGNOSIS: Anemia TISSUE SUBMITTED: Duodenum biopsy MICROSCOPIC DIAGNOSIS Duodenum, biopsy: Fragments of duodenal mucosa, no pathologic diagnosis. MARIAH:elpidio 04/15/2023 MICROSCOPIC DESCRIPTION Slides are reviewed. GROSS DESCRIPTION Received in fixative is one container labeled with the patient's name and designated duodenum biopsy. The specimen consists of two irregular fragments of light harris soft tissue that in aggregate measure 0.6 x 0.4 x 0.1 cm. The specimen is totally submitted in one cassette. / SJ:elpidio 04/14/2023 TC:4 CPT: 24469
--- NOTE | 2023-04-11 11:47 | HP.PCM_ITS ---
HPI - General General Date of Admission: 04/11/23 Date of Service: 04/11/23 Chief Complaint: anemia HPI Narrative ADA JUNE, is a 77 M who was ttransferred to the TCU after a mechanical fall. He developed a left humeral fracture that per ER and admitting physician is nonoperative. Pain is being managed with appropriate pain control and he will continue with the sling for the next 6 to 8 weeks. He was evaluated by PT/OT and they recommended SNF placement. He did get excepted to SNF . He has a PMH of diabetes, GERD, hypertension, CHF, A-fib and previous fall in January with intracranial hemorrhage requiring surgical intervention who presented to [facility] ED 04/02/2023 with a fall and striking left arm. Patient got up to go to the bathroom and when he left the bathroom and was walking back to his chair he felt woozy and like he might pass out but before he could sit down he fell backwards and onto his left side and denies injuring any other part of him. In the ED patient had x-ray which showed impacted proximal humerus fracture without evidence of dislocation, CT of the brain without contrast showed some residual chronic hematoma without evidence of new bleed. Patient in ED was weak and unsteady on his feet and given that he lives alone hospitalist contacted for admission for pain control and possible placement. Patient evaluated in ED and he reports history as above, reports occasionally he will feel a little bit dizzy but today it was when he got up to walk back to his chair, as soon as he got to the floor he no longer had any of the symptoms, denied any other symptoms whatsoever at that time. It looks like he has been anemic since at least 2020 but there does not appear to be any significant workup. Iron studies today demonstrate a mixed picture with iron deficiency and anemia of chronic disease. His hemoglobin this morning was 7.7 on recheck it corrected to 7.9. He received a dose of IV Venofer prior to discharge and he was placed on p.o. 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 Lower extremity edema New onset atrial fibrillation Non-rheumatic mitral regurgitation Non-rheumatic mitral valve stenosis Non-rheumatic tricuspid valve insufficiency Nonrheumatic aortic (valve) stenosis Osteoporosis Paroxysmal atrial fibrillation Ulnar neuropathy Vitamin D deficiency Home Medications atorvastatin 20 mg tablet 20 mg PO QHS CHOLESTEROL 04/05/19 [History Last Taken 04/01/23] omeprazole 20 mg capsule,delayed release 20 mg PO QHS ACID REFLUX 10/09/21 [History Last Taken 04/01/23] quetiapine 25 mg tablet 50 mg (2 x 25 mg) PO QHS MOOD 30 days #60 tabs 01/22/23 [Rx Last Taken 04/01/23] acetaminophen 500 mg tablet (Acetaminophen Extra Strength) 1,000 mg PO TID PRN PAIN 04/02/23 [History Last Taken Unknown] amlodipine 5 mg tablet 5 mg PO QHS BLOOD PRESSURE 04/02/23 [History Last Taken 04/01/23] cholecalciferol (vitamin D3) 125 mcg (5,000 unit) capsule 125 mcg PO QHS SUPPLEMENT 04/02/23 [History Last Taken 04/01/23] melatonin 3 mg tablet 3 mg PO QHS SLEEP 04/02/23 [History Last Taken 04/01/23] spironolactone 25 mg tablet 25 mg PO QHS BLOOD PRESSURE 04/02/23 [History Last Taken 04/01/23] ferrous sulfate 325 mg (65 mg iron) tablet 325 mg PO DAILY supplement #1 TAB 04/04/23 [Rx Last Taken Unknown] oxycodone 5 mg tablet 5 mg PO Q4H PRN PRN Pain Score 4-10 3 days #10 tabs 04/04/23 [Rx Last Taken Unknown] Allergy/AdvReac Type Severity Reaction Status Date / Time No Known Allergies Allergy Verified 04/11/23 10:44 Family History Mother , when patient was age 14, metastatic breast cancer Breast cancer Father , age 93 , unknown cause No problems noted. Surgical History abdominal incisional hernia repair (2011) History of aortic valve replacement with bioprosthetic valve (~07/27/21) History of arthroplasty of right ankle History of diana hole surgery History of coronary artery bypass surgery (~07/27/21) History of mitral valve repair (~07/27/21) History of right and left heart catheterization (LHC) (~06/05/21) History of total left hip arthroplasty History of ureter repair (2010) Social History household members: none Smoking Status: Former smoker how long ago did patient quit smokin years ago alcohol intake: current alcohol intake frequency: holidays/special occasions only substance use type: does not use caffeine: Yes Type: coffee Number of servings: 4 ROS Constitutional Constitutional: Denies chills, fever(s) or weight gain ENT HEENT: Denies headache(s), nasal congestion or nasal discharge Cardiovascular Cardiovascular: Denies chest pain or palpitations Respiratory/Chest Respiratory/Chest: Denies cough, excessive phlegm production or shortness of breath with exertion Gastrointestinal Gastrointestinal: Denies abdominal pain, nausea or vomiting Genitourinary Genitourinary: Denies dysuria Musculoskeletal Musculoskeletal: Denies joint pain or joint swelling Integumentary Integumentary: Denies rash or wounds Neurologic Neurologic: Denies focal weakness, numbness or tingling Psychiatric Psychiatric: Denies anxiety, auditory hallucinations, depression, homicidal lion ation or suicidal ideation Vital Signs Vital Signs Vital Signs: 04/11/23 10:49 04/11/23 10:49 Temperature 99.4 F H Temperature Source Oral Pulse Rate 63 Respiratory Rate 16 Respiratory Pattern Normal Blood Pressure 147/53 H Blood Pressure Mean 84 Blood Pressure Source Monitor Blood Pressure Position Semi-Fowlers Blood Pressure Location Right Arm Pulse Ox 96 Oxygen Delivery Method Room Air Weight Weight: 188 lb Body Mass Index (BMI) 23.5 Physical Exam Const alert General Appearance: cooperative HEENT normocephalic Eyes PERRL and EOMs intact bilaterally Neck supple, no JVD and no carotid bruits Resp normal respiratory effort, normal air movement and clear to auscultation bilaterally Cardio regular rate and regular rhythm GI normal to inspection, nondistended, normoactive bowel sounds, non-tender and non-distended Extremity normal capillary refill Extremity Narrative: Left upper extremity sling. General Extremity: Negative for edema Skin no rashes or lesions noted General Skin Exam: no breakdown Psych affect normal Appearance: appropriate Results Lab / Micro Data Labs: Laboratory Results - last 24 hr 04/11/23 10:57: POC Glucose 108 H Assessment & Plan Assessment/Plan (1) Iron deficiency anemia: PLAN: The differential diagnosis for his acute on chronic anemia is GI bleed secondary to peptic ulcer disease, angiodysplasia, GAVE, Az's erosions, neoplasia. Patient agreed to undergo an upper endoscopy to evaluate his upper GI tract. He does not want to undergo colonoscopy at this time. I told him that if his upper GI tract analysis was normal then I would recommend a colonoscopy.
[2023-04-11 11:48] VITALS: BP 132/61; BP 147/53; PULSE 58; RESP 16; TEMP 36.9; O2SAT 98
[2023-04-11 11:50] VITALS: BP 127/54; BP 147/53; PULSE 57; RESP 16; O2SAT 100
--- NOTE | 2023-04-11 11:53 | OP.EGD_ITS ---
Patient Name: Edilberto Ramesh Procedure Date: 04/11/2023 11:26 AM Date of : 1945 Age: 77 Procedure: Upper GI endoscopy Indications: Iron deficiency anemia Providers: Jerald Burks DO Medicines: Monitored Anesthesia Care Patient Profile: This is a 77 year old male. Refer to note in patient chart for documentation of history and physical. Patient has symptoms. Complications: No immediate complications. Procedure: Pre-Anesthesia Assessment: - Prior to the procedure, a History and Physical was performed, and patient medications and allergies were reviewed. The risks and benefits of the procedure and the sedation options and risks were discussed with the patient. All questions were answered and informed consent was obtained. Patient identification and proposed procedure were verified by the physician. Mental Status Examination: alert and oriented. Airway Examination: normal oropharyngeal airway and neck mobility. Respiratory Examination: clear to auscultation. CV Examination: normal. Prophylactic Antibiotics: The patient does not require prophylactic antibiotics. Prior Anticoagulants: The patient has taken no anticoagulant or antiplatelet agents. ASA Grade Assessment: III - A patient with severe systemic disease. After reviewing the risks and benefits, the patient was deemed in satisfactory condition to undergo the procedure. The anesthesia plan was to use monitored anesthesia care (MAC). Immediately prior to administration of medications, the patient was re-assessed for adequacy to receive sedatives. The heart rate, respiratory rate, oxygen saturations, blood pressure, adequacy of pulmonary ventilation, and response to care were monitored throughout the procedure. The physical status of the patient was re-assessed after the procedure. After obtaining informed consent, the endoscope was passed under direct vision. Throughout the procedure, the patient's blood pressure, pulse, and oxygen saturations were monitored continuously. The gastroscope was introduced through the mouth, and advanced to the second part of duodenum. The upper GI endoscopy was accomplished without difficulty. The patient tolerated the procedure well. Scope In: 11:39:54 AM Scope Out: 11:43:07 AM Total Procedure Duration Time 0 hours 3 minutes 13 seconds Findings: The examined esophagus was normal. The entire examined stomach was normal. Patchy mildly erythematous mucosa without active bleeding and with no stigmata of bleeding was found in the duodenal bulb. Biopsies were taken with a cold forceps for histology. Verification of patient identification for the specimen was done. Estimated blood loss was minimal. Impression: - Normal esophagus. - Normal stomach. - Erythematous duodenopathy. Biopsied. Recommendation: - Return patient to referring hospital for ongoing care. - Resume previous diet. - Continue present medications. - Colonoscopy Procedure Code(s): --- Professional --- 86476, Esophagogastroduodenoscopy, flexible, transoral; with biopsy, single or multiple CPT copyright 2021 [employer]. All rights reserved. The codes documented in this report are preliminary and upon letter stamping machine operator review may be revised to meet current compliance requirements. Jerald Burks DO 04/11/2023 11:52:32 AM This report has been signed electronically. Number of Addenda: 0 Note Initiated On: 04/11/2023 11:26 AM
--- NOTE | 2023-04-11 11:53 | OP.CCLET_ITS ---
04/11/2023 Amador Laura Re : Upper GI endoscopy procedure for Edilberto Ramesh Dear Osman This procedure was performed on Tuesday, April 11, 2023. My impressions and recommendations are as follows: Impressions : - Normal esophagus. - Normal stomach. - Erythematous duodenopathy. Biopsied. Recommendations : - Return patient to referring hospital for ongoing care. - Resume previous diet. - Continue present medications. - Colonoscopy My findings are described in the full procedure note, which is enclosed. If I can be of further assistance, please feel free to contact me at . Sincerely, Jerald Burks, 04/11/2023 11:52:32 AM This report has been signed electronically.
[2023-04-11 11:55] VITALS: BP 132/59; BP 147/53; PULSE 59; RESP 16; O2SAT 99
[2023-04-11 12:01] VITALS: BP 147/53; BP 153/64; PULSE 59; RESP 16; O2SAT 99
[2023-04-11 12:19] VITALS: BP 147/53
== END 2023-04-11 12:41 | disposition home or self-care (01) ==
LOC: EN 10:48 → AC 10:49
PROVIDERS: PCP Nurse Practitioner Family; Referring Provider Nurse Practitioner Family; Visit Provider Internal Medicine Gastroenterology
PROC: 0DJ08ZZ Inspection of Upper Intestinal Tract, Via Natural or Artificial Opening Endoscopic (ICD-10-PCS; CPT 43235; principal; 2023-04-11 11:25)
DX: K31.89 Other diseases of stomach and duodenum (principal); I11.0 Hypertensive heart disease with heart failure; I50.22 Chronic systolic (congestive) heart failure; E11.9 Type 2 diabetes mellitus without complications; I25.10 Atherosclerotic heart disease of native coronary artery without angina pectoris; K21.9 Gastro-esophageal reflux disease without esophagitis; E78.5 Hyperlipidemia, unspecified; D50.9 Iron deficiency anemia, unspecified; Z79.899 Other long term (current) drug therapy; Z87.891 Personal history of nicotine dependence
CPT/HCPCS: 43239; 82962; 88305; J7120; J2405

== ENCOUNTER 2023-04-13 09:10 | Outpatient (CLI) | payer MEDICARE, SELFPAY ==
[2023-04-13] VITALS (10 sets, daily range): BP systolic 148–182; BP diastolic 52–66; PULSE 50–68; RESP 18; TEMP 36.4–36.9; O2SAT 96–100
[2023-04-13] MEDS: 0.9% Saline Lock 10 ML Syringe IV ×2 (10:05→13:05)
[2023-04-13] MEDS: Furosemide 20 MG/2 ML VIAL IV (13:04)
== END 2023-04-13 17:00 | disposition home or self-care (01) ==
LOC: MEDOUTP 09:20 → MS3 09:21
PROVIDERS: PCP Nurse Practitioner Family; Referring Provider Family Medicine Geriatric Medicine; Visit Provider Family Medicine Geriatric Medicine
DX: S42.302A Unspecified fracture of shaft of humerus, left arm, initial encounter for closed fracture (principal); W19.XXXA Unspecified fall, initial encounter
CPT/HCPCS: 36415; 36430; 86850; 86900; 86901; 86920; 86922; J7040; P9016; A4216; J1940

== ENCOUNTER 2024-01-04 11:30 | Inpatient (IN) | payer MEDICARE, SELFPAY ==
--- OUTSIDE RECORDS SUMMARY | 2024-01-04 11:56 | XMS RPT_ITS | CCD ---
Author Organization [facility] Informat ion [facility] Care Team Providers Care Juvenile Probation Officer Name Role Phone Macy Barcenas MD Primary Care Provider Ada Stone Unavailable Jens Bae MD Unavailable [phone] Macy Barcenas Unavailable Eloisa Norris I Unavailable Unavailable Macy Barcenas MD Primary Care Provider MACY BARCENAS Primary Care Unavailable VENKATA RAMIREZ Referring Unavailable JENS BAE Attending Unavailable MACY BARCENAS Primary Care Unavailable VENKATA RAMIREZ Referring Unavailable VENKATA RAMIREZ Attending Unavailable MACY BARCENAS Primary Care Unavailable ADA STONE Referring Unavailable VENKATA RAMIREZ Referring Unavailable MACY BARCENAS [facility] Care Unavailable VENKATA RAMIREZ Referring Unavailable TALITA SESAY Attending Unavailable MACY BARCENAS Primary Care Unavailable MACY BARCENAS Primary Care Unavailable JENS BAE Referring Unavailable VENKATA RAMIREZ Referring Unavailable MACY BARCENAS [facility] Care Unavailable MACY BARCENAS Primary Care Unavailable TALITA SESAY Admitting Unavailable TALITA SESAY Attending Unavailable VENKATA RAMIREZ Referring Unavailable MACY BARCENAS Primary Care Unavailable VENKATA RAMIREZ Referring Unavailable MACY BARCENAS [facility] Care Unavailable VENKATA RAMIREZ Referring Unavailable AMCY BARCENAS Primary Care Unavailable VENKATA RAMIREZ Referring Unavailable MACY BARCENAS Primary [facility] Unavailable MACY BARCENAS Primary Care Unavailable VENKATA RAMIREZ Referring Unavailable MACY BARCENAS Primary Care Unavailable SOLTESIngrid, EDMARIAMA G Referring Unavailable NARINDER, [facility] Care Unavailable SOLTESIngrid, EDWARD G Referring Unavailable NARINDER, [facility] Care Unavailable TALITA SESAY Referring Unavailable NARINDER, [facility] Care Unavailable SOLTESZ, EDMARIAMA G Referring Unavailable NARINDER, [facility] Care Unavailable SOLTESZ, EDWARD G Referring Unavailable NARINDER, [facility] Unavailable SOLTESZ, EDWARD G Referring Unavailable NARINDER, [facility] Unavailable SOLTESZ, EDWARD G Referring Unavailable NARINDER, [facility] Unavailable SOLTESZ, EDWARD G Admitting Unavailable SOLTESZ, EDMARIAMA G Attending Unavailable NARINDER, [facility] Unavailable SOLTESZ, EDMARIAMA G Referring Unavailable NARINDER, [facility] Unavailable SOLTESIngrid, EDMARIAMA G Referring Unavailable NARINDER, [facility] Care Unavailable NARINDER, [facility] Unavailable SOLTESIngrid, EDMARIAMA G Referring Unavailable NARINDER, [facility] Care Unavailable SOLTESIngrid, EDMARIAMA G Referring Unavailable KENIA Norris I Attending Unavailable Narinder, [facility] Care Unavail able Anish QUAN [facility] Provider David ALEGRIA Calvin Primary [facility] Provider [phone] ADA WILLAMS Attending Unavailable [facility] Unavailable ADA WILLAMS Attending Unavailable [facility] Unavailable ADA WILLAMS Attending Unavailable [facility] Unavailable ADI ORTEGA Admitting Unavailable ADI ORTEGA Attending Unavailable ADI ORTEGA Referring Unavailable [facility] Unavailable EMILY FORDE Consulting Unavailable CATRINA RODRÍGUEZ Consulting Unavailable ESPINOZA GILBERT Consulting Unavailable ADA WILLAMS Attending Unavailable ADA WILLAMS Admitting Unavailable [facility] WILLAMS Attending Unavailable [facility] Unavailable YAZ BAKER Admitting Unavailable YAZ BAKER Attending Unavailable TATYANA GOETZ Referring Unavailable [facility] Care Unavailable TATYANA GOETZ Referring Unavailable [facility] Care Unavailable POOMMIPANIT, ADA B Consulting Unavailable REYES SALCEDO Attending Unavailable REYES SALCEDO Admitting Unavailable DAVID, DONAL Primary Care Unavailable TARA SNEED Admitting Unavailable TARA SNEED Attending Unavailable BARRY MCKAY Consulting Unavailable [place] [facility] Referring Unavailable DAVID, DONAL Primary Care Unavailable DAVID, DONAL Primary Care Unavailable TATYANA GOETZ Attending Unavailable DAVID, DONAL Primary Care Unavailable KEN FULLER Attending Unavailable DAVID, DONAL Attending Unavailable MACY BARCENAS Primary Care Unavailable MACY BARCENAS Primary Care Unavailable ANNA HENNING Attending Unavailable APPLE LAMB Admitting Unavailabl e SALGIA, BRIAN DEV T. Referring Unavailable NO, PHYSICIAN Primary Care Unavailable [facility] Attending YAZ Morillo Consulting Unavailab APPLE FloydMUKINANCY Consulting Unavailabl e LAUBKAMINI THURSTON Consulting Unavailable GARDILCIC STJEPAN Consulting Unavailable SALGIA, BRIAN DEV T. Attending Unavailable NO, PHYSICIAN Primary Care Unavailable Medications Current Medications Medication Drug Class(es) Dates Sig (Normalized) Sig (Original) Acetaminophen (18 sources) Start: 05-16-2023 take 1 tablet by mouth every four hours as needed acetaminophen (Tylenol) tablet 650 mg Start: 01-15-2023 End: 01-25-2023 take 2 tablets by mouth every eight hours acetaminophen (Tylenol) 500 MG tablet Take 2 tablets (1,000 mg) by mouth in the morning and 2 tablets (1,000 mg) at noon and 2 tablets (1,000 mg) before bedtime. Do all this for 10 days. 0 01/15/2023 01/25/2023 Active Start: 01-10-2023 End: 01-15-2023 take 1 tablet by mouth every eight hours acetaminophen (Tylenol) tablet 1,000 mg Start: 01-18-2022 End: 01-28-2022 take 2 tablets by mouth every four hours as needed acetaminophen (TYLENOL) 325 MG tablet Take 2 (two) tablets (650 mg total) by mouth every 4 (four) hours as needed . 30 tablet 0 01/18/2022 01/28/2022 Active Start: 01-14-2022 End: 01-18-2022 take 1 tablet by mouth every four hours as needed for pain and headache acetaminophen (TYLENOL) tablet 650 mg alendronic acid 70 mg oral tablet (2 sources) Bisphosphonate Start: 12-30-2021 take 1 tablet by mouth every week alendronate (FOSAMAX) 70 MG tablet Take 1 (one) tablet (70 mg total) by mouth once a week . 0 12/30/2021 Active aluminum hydroxide 40 mg/ml / magnesium hydroxide 40 mg/ml oral suspension (4 sources) take 30 mL by mouth every twenty-four hours as needed for gastroesophageal reflux disease aluminum-magnes ium hydroxide 200-200 MG/5ML suspension Take 30 mL by mouth Daily as needed for heartburn. 0 Active aluminum hydroxide 40 mg/ml / magnesium hydroxide 40 mg/ml / simethicone 4 mg/ml oral suspension (8 sources) take 15 mL by mouth every six hours as needed alum-mag hydroxide-simet h (Mylanta) 200-200-20 mg/5 mL oral suspension Take 15 mL by mouth every 6 hours if needed for indigestion or heartburn. Active amLODIPine 10 mg oral tablet (20 sources) Dihydropyridine Calcium Channel Lashell Start: 01-11-2023 End: 02-14-2023 take 1 tablet by mouth once daily amLODIPine (Norvasc) 10 MG tablet Take 1 tablet (10 mg) by mouth daily. 0 01/15/2023 Active Start: 01-08-2023 End: 01-11-2023 take 5 mg by mouth once daily 5 mg, Oral, Daily, First dose on Fri01/08/23 at 1500 Start: 11-25-2021 End: 01-18-2022 take 1 tablet by mouth once daily amLODIPine (NORVASC) 5 MG tablet Take 1 (one) tablet (5 mg total) by mouth daily . 0 11/25/2021 01/18/2022 Discontinued (Stop Taking at Discharge) Comment on above: Take 5 mg by mouth o nce daily. apixaban 5 mg oral tablet (8 sources) Factor Xa Inhibitor Start: 05-18-2023 take 1 tablet by mouth twice daily in the evening apixaban (Eliquis) 5 mg tablet Indications: Longstanding persistent atrial fibrillation (Multi) Take 1 tablet (5 mg) by mouth 2 times a day. 60 tablet 05/18/2023 1:10 PM EDT 05/18/2023 Active Start: 05-16-2023 End: 05-17-2024 take 1 tablet by mouth every twelve hours apixaban (Eliquis) 5 mg tablet Indications: Longstanding persistent atrial fibrillation (Multi) Take 1 tablet (5 mg) by mouth every 12 hours. 180 tablet 3 05/18/2023 05/17/2024 Active ascorbic acid 500 mg oral tablet (8 sources) Vitamin C take 1 tablet by jeffrey once daily ascorbic acid (Vitamin C) 500 mg tablet Take 1 tablet (500 mg) by mouth once daily. Active take [address] [facility] once daily at lunch Ascorbic Acid (vitamin C) 250 MG tablet Take 500 mg by mouth Daily with lunch. 0 Active atorvastatin 20 mg oral tablet (20 sources) HMG-CoA Reductase Inhibitor Start: 05-16-2023 take 20 mg by mouth once daily 20 mg, oral, Daily, First dose on Fri05/16/23 at 0900 Start: 01-08-2023 End: 01-15-2023 take 20 mg by mouth once daily 20 mg, Oral, Daily, Fir st dose on Fri01/08/23 at 2100 Start: 04-05-2019 End: 01-18-2022 atorvastatin (LIPITOR) table t 20 mg Comment on above: Take 20 mg by mouth every evening. bacitracin 0.4 unt/mg / neomycin 0.0035 mg/mg / polymyxin b 5 unt/mg topical ointment (6 sources) Aminoglycoside Antibacterial, Polymyxin-class Antibacterial neomycin-b acitracnZn-polym yxnB (Neosporin Original) ointment Apply 1 Application topically 2 times a day. Active neomycin-bacitra cintia-polymyxin (Polysporin) ophthalmic ointment Daily as needed. 0 Active benzonatate 100 mg oral capsule (1 source) Non-narcotic Antitussive End: 05-18-2023 take 1 capsule by mouth three times daily as needed for cough benzonatate (Tessalon) 100 mg capsule Take 1 capsule (100 mg) by mouth 3 times a day as needed for cough. Do not crush or chew. 0 05/18/2023 Discontinued (Stop Taking at Discharge) docusate sodium 50 mg / sennosides, skilled nursing 8.6 mg oral tablet (8 sources) Start: 05-16-2023 take 1 tablet by mouth twice daily 1 tablet, oral, 2 times daily, First dose on Fri05/16/23 at 0100 doxycycline hyclate 100 mg oral capsule (3 sources) Tetracycline-clas s Drug Start: 06-13-2023 End: 06-23-2023 doxycycline (Vibramycin) 100 MG capsule Take 1 capsule (100 mg) by mouth 2 times daily for 10 days. Take with at least 8 ounces (large glass) of water, do not lie down for 30 minutes after 20 capsule 0 06/13/2023 06/23/2023 Active 0.3 ml enoxaparin sodium 100 mg/ml prefilled syringe (7 sources) Low Molecular Weight Heparin Start: 01-15-2023 End: 02-14-2023 inject 0.3 mL by subcutaneous injection in the morning enoxaparin (Lovenox) 30 MG/0.3ML solution prefilled syringe Indications: Prophylaxis of Venous Thromboembolism Inject 0.3 mL (30 mg) under the skin in the morning and 0.3 mL (30 mg) in the evening. While in facility. 0 01/15/2023 02/14/2023 Active Start: 01-10-2023 End: 01-15-2023 enoxaparin (Lovenox) syringe 30 mg folic acid 1 mg / polysaccharide iron complex 150 mg / vitamin b12 0.025 mg oral capsule (4 sources) Vitamin B12 Start: 05-24-2023 take 1 capsule by mouth once daily at lunch Ferrex 150 Forte 150-0.025-1 MG capsule Take 1 capsule by mouth Daily with lunch. 0 05/24/2023 Active furosemide 40 mg oral tablet (11 sources) Loop Diuretic Start: 05-15-2023 take 40 mg intravenously every twelve hours furosemide (Lasix) injection 40 mg Start: 05-21-2021 End: 05-17-2024 take 1 tablet by mouth twice daily in the evening furosemide (Lasix) 40 mg tablet Take 1 tablet (40 mg) by mouth 2 times a day. 180 tablet 3 06/25/2023 4:40 PM EDT 05/20/2023 Active glimepiride 1 mg oral tablet (15 sources) Sulfonylurea Start: 01-07-2022 take 1 tablet by mouth once daily glimepiride (AMARYL) 1 MG tablet Take 1 (one) tablet (1 mg total) by mouth daily . 0 01/07/2022 Active take 1 tablet by jeffrey th once daily at breakfast glimepiride (AMARYL) 1 mg tablet Take 1 mg by mouth daily with breakfast. 0 Suspended Comment on above: Take 1 mg by mouth d aily with breakfast. hydrALAZINE hydrochloride 100 mg oral tablet (16 sources) Arteriolar Vasodilator Start: 4 End: take 1 tablet by mouth three times daily hydrALAZINE (Apresoline) 100 mg tablet Indications: Primary hypertension Take 1 tablet (100 mg) by mouth 3 times a day. 90 tablet 2 11/08/2023 02/06/2024 Active Start: 05-16-2023 hydrALAZINE (A presoline) injection 10 mg Start: 05-16-2023 hydrALAZINE (A presoline) tablet 50 mg Start: 01-10-2023 End: 01-15-2023 take 10 mg intravenously every four hours as needed for hypertension hydrALAZINE (Apresoline) injection 10 mg Start: 01-06-2023 End: 01-08-2023 hydrALAZINE (Apresoline) injection 10 mg hydrALAZINE (Apr esoline) 50 MG tablet Take 50 mg by mouth in the morning and 50 mg at noon and 50 mg in the evening. 0 Active iv contrast (will be provided with radiology test) (5 sources) Start: 07-24-2021 End: 07-25-2021 inject 1 dose intravenously once iv contrast (will be provided with radiology test) CTA ABD/PEL - No IV access, insert saline lock prior to the sedation, infusion, injection for imaging exam. Discontinue saline lock post exam. If Pt. has a central line or IVAD, may access for administration according to line specific nursing protocol. Once exam is complete flush line and de-access according to line specific nursing protocol in the CT contrast administration guidelines link. 1 Each 0 07/24/2021 07/25/2021 Active Comment on above: CTA ABD/PEL - No IV access, insert saline lock prior to the sedation, infusion, injection for imaging exam. Discontinue saline lock post exam. If Pt. has a central line or IVAD, may access for administration according to line specific nursing protocol. Once exam is complete flush line and de-access according to line specific nursing protocol in the CT contrast administration guidelines link. loperamide hydrochloride 2 mg oral tablet (1 source) Opioid Agonist End: 05-18-2023 take 1 tablet by mouth four times daily as needed loperamide (Imodium A-D) 2 mg tablet Take 2 tablets (4 mg) by mouth 4 times a day as needed for diarrhea. 0 05/18/2023 Discontinued (Stop Taking at Discharge) Lutein (20 sources) LUTEIN PO Take 2 5 mg by mouth. 0 Active End: 07-24-2021 Lutein 20 mg Cap Take 20 mg by mouth. 0 07/24/2021 Discontinued (Dosage adjustment) Comment on above: Take 20 mg by mouth. lutein 25 mg / zeaxanthin 5 mg oral capsule (16 sources) take 1 capsule by mouth once daily lutein-zeaxanthin 25-5 mg capsule Take 1 capsule by mouth once daily. Active take 1 capsule by mouth once cristine ly LUTEIN-ZEAXANTHIN ORAL Take 1 capsule by mouth daily . 0 Active take 1 capsule by mouth once cristine ly LUTEIN-ZEAXANTHIN ORAL Take 1 capsule by mouth daily . 0 take 1 capsule by mouth once cristine ly LUTEIN-ZEAXANTHIN ORAL Take 1 capsule by mouth once daily. 07-24-2021: lutein 25 mg-Zeaxanthin 5 mg 0 Suspended take 1 capsule by mouth once cristine ly LUTEIN-ZEAXANTHIN ORAL Take 1 capsule by mouth once daily. 07-24-2021: lutein 25 mg-Zeaxanthin 5 mg 0 Active Comment on above: Take 1 capsule by [facility] once daily. 07-24-2021: lutein 25 mg-Zeaxanthin 5 mg magnesium hydroxide 240 mg/ml oral suspension (6 sources) Start: 05-16-19 take 10 mL by mouth every twenty-four hours as needed 10 mL, oral, Daily PRN, constipation, first line, Starting on Fri05/16/23 at 0031 Contact provider if no bowel movement in past 48 hours. Concentrat ed product. Follow administration with 8 ounces of water. Start: 01-16-2022 End: 01-18-2022 magnesium hydroxide (MOM) 40 0 mg/5 mL suspension 2,400 mg take 30 mL by mouth every twenty-four hours as needed magnesium hydroxide (Milk of Magnesia) 400 mg/5 mL suspension Take 30 mL by mouth once daily as needed for constipation. Active melatonin 3 mg oral tablet (15 sources) Start: 05-16-2023 take 3 mg by mouth once daily 3 mg, oral, Nightly, First dose on Fri05/16/23 at 0100 Start: 01-08-2023 End: 02-14-2023 take 1 tablet by mouth once daily melatonin 3 MG tablet Take 1 tablet (3 mg) by mouth Nightly. 0 01/15/2023 02/14/2023 Active take 1 capsule by mo uth once daily Melatonin 3 MG capsule Take 3 mg by mouth Nightly. 0 Active methocarbamol 500 mg oral tablet (3 sources) Muscle Relaxant Start: 01-14-2022 End: 01-25-2022 take 1 tablet by mouth three times daily as needed for muscle spasms methocarbamoL (ROBAXIN) 500 MG tablet Take 1 (one) tablet (500 mg total) by mouth 3 (three) times a day as needed for muscle spasms . 21 tablet 0 01/18/2022 01/25/2022 Active mirtazapine 15 mg oral tablet (3 sources) Start: 01-14-2022 End: 02-17-2022 take 1 tablet by mouth once daily mirtazapine (REMERON) 15 MG tablet Take 1 (one) tablet (15 mg total) by mouth nightly . 30 tablet 0 01/18/2022 02/17/2022 Active mupirocin 0.02 mg/mg topical ointment (4 sources) RNA Synthetase Inhibitor Antibacterial Start: 07-26-2021 End: 08-02-2021 mupirocin (BACTROBAN) 2 % ointment Apply a small amount in each nostril using a cotton swab twice the day before surgery and once the morning of surgery. 22 g 0 07/26/2021 08/02/2021 Suspended Comment on above: Apply a small amount in each nostril using a cotton swab twice the day before surgery and once the morning of surgery. omeprazole 20 mg delayed release oral capsule (20 sources) Proton Pump Inhibitor Start: 02-07-2012 take 1 capsule by mouth once daily omeprazole (PRILOSEC) 20 MG capsule Take 1 (one) capsule (20 mg total) by mouth daily . 0 11/25/2021 Active Comment on above: Take 1 capsule by mo uth once daily. ondansetron ODT (Zofran-ODT) disintegrating tablet 4 mg (3 sources) Start: 05-16-2023 take 1 tablet by mouth every eight hours as needed ondansetron ODT (Zofran-ODT) disintegrating tablet 4 mg Start: 01-06-2023 End: 01-15-2023 take 1 tablet by mouth every eight hours as needed for nausea and vomiting ondansetron ODT (Zofran-ODT) disintegrating tablet 4 mg oxyCODONE hydrochloride 5 mg oral tablet (6 sources) Opioid Agonist Start: 01-15-2023 End: 01-22-2023 take 1 tablet by mouth every six hours as needed oxyCODONE (Roxicodone) 5 MG immediate release tablet Indications: SDH (subdural hematoma) (HCC) , Fall, initial encounter Take 0.5-1 tablets (2.5-5 mg) by mouth every 6 hours as needed for moderate pain (4-6) or severe pain (7-10) (pain) for up to 7 days. 28 tablet 0 01/15/2023 01/22/2023 Active Start: 01-10-2023 End: 01-15-2023 take 1 tablet by mouth every four hours as needed for pain and pain oxyCODONE (Roxicodone) immediate release tablet 2.5 mg oxygen (O2) gas therapy (3 sources) Start: 05-18-2023 End: 06-17-2023 oxygen (O2) gas therapy Indications: Acute hypoxemic respiratory failure (CMS/HCC) Inhale 1 each every 12 hours. Wear 3 L NC 0 05/18/2023 06/17/2023 Active oxygen (O2) therapy (1 source) Start: 05-15-2023 oxygen (O2) therapy pantoprazole 20 mg delayed release oral tablet (4 sources) Proton Pump Inhibitor Start: 05-16-2023 take 20 mg by mouth once daily before breakfast 20 mg, oral, Daily before breakfast, First dose on Fri05/16/23 at 0700 Do not crush, chew, or split. Start: 01-09-2023 End: 01-15-2023 take 40 mg by mouth once daily before breakfast 40 mg, Oral, Daily before breakfast, First dose on Mai 01/09/23 at 0700, Substituted for omeprazole (Prilosec). Do not crush, chew, or split. Start: 01-14-2022 End: 01-18-2022 pantoprazole (PROTONIX) EC t ablet 40 mg perflutren protein A microsphere (Optison) injection 0.5 mL (1 source) Start: 05-16-2023 perflutren pro tein A microsphere (Optison) injection 0.5 mL polyethylene glycol 3350 02228 mg powder for oral solution (11 sources) Osmotic Laxative Start: 01-06-2023 End: 01-25-2023 take 17 g by mouth every twenty-four hours as needed polyethylene glycol, PEG, 3350 (Miralax) 17 g packet Take 17 g by mouth Daily as needed (constipation) for up to 10 days. 0 01/15/2023 01/25/2023 Active Start: 01-16-2022 End: 01-26-2022 polyethylene glycol (MIRALAX ) 17 gram powder Take 17 (seventeen) g by mouth daily for 7 days Start: 01/19/22. 255 g 0 01/19/2022 01/26/2022 Active polysaccharide iron complex 150 mg oral capsule (4 sources) take 1 capsule by mouth once daily iron polysaccharides (Nu-Iron,Niferex) 150 mg iron capsule Take 1 capsule (150 mg) by mouth once daily. Active QUEtiapine 25 mg oral tablet (20 sources) Atypical Antipsychotic Start: End: take 0.5 tablet by mouth twice daily as needed QUEtiapine (SEROquel) 25 MG tablet Take 0.5 tablets (12.5 mg) by mouth 2 times daily as needed (first line for agitation) for up to 10 days. 0 01/15/2023 Active Start: 01-15-2023 End: 02-14-2023 take 1 tablet by mouth once daily QUEtiapine (SEROquel) 50 MG tablet Take 1 tablet (50 mg) by mouth Nightly. 0 01/15/2023 Active Start: 01-08-2023 End: 01-15-2023 QUEtiapine (SEROquel) tablet 50 mg Start: 01-08-2023 End: 01-15-2023 QUEtiapine (SEROquel) tablet 12.5 mg sacubitril 24 mg / valsartan 26 mg oral tablet (16 sources) Angiotensin 2 Receptor Lashell Start: 01-18-2022 End: 02-17-2022 take 1 tablet by mouth twice daily sacubitriL-valsartan (ENTRESTO) 24-26 mg per tablet Take 1 (one) tablet by mouth 2 (two) times a day . 60 tablet 0 01/18/2022 02/17/2022 Active Start: 01-14-2022 End: 01-18-2022 sacubitriL-valsartan (ENTRES TO) 24-26 mg per tablet 1 tablet take 1 tablet by jeffrey th twice daily sacubitril-valsartan (ENTRESTO) 24-26 mg tablet Take 1 tablet by mouth twice daily. 0 Suspended Comment on above: Take 1 tablet by jeffrey th twice daily. sennosides, skilled nursing 8.6 mg oral tablet (7 sources) Start: 01-08-20 End: 02-15-20 take 1 tablet by mouth once daily sennosides (Senokot) 8.6 MG tablet Take 1 tablet (8.6 mg) by mouth Nightly. 0 01/15/2023 02/14/2023 Active spironolactone 25 mg oral tablet (20 sources) Aldosterone Antagonist Start: 05-16-19 End: 05-17-19 spironolactone (Aldactone) tablet 25 mg Start: 01-08-2023 End: 01-15-2023 take 25 mg by mouth once daily 25 mg, Oral, Daily, Fir st dose on Fri01/08/23 at 1500 sulfur hexafluoride microsphr (Lumason) injection 24.28 mg (1 source) Start: 05-16-2023 sulfur hexaflu oride microsphr (Lumason) injection 24.28 mg tamsulosin hydrochloride 0.4 mg oral capsule (20 sources) alpha-Adrenerg ic Lashell Start: 01-07-2023 End: 01-15-2023 take 1 capsule by mouth once daily tamsulosin (Flomax) 0.4 MG 24 hr capsule Take 1 capsule (0.4 mg) by mouth daily. 0 01/15/2023 Active traMADol hydrochloride 50 mg oral tablet (4 sources) Opioid Agonist Start: 01-14-2022 End: 01-20-2022 traMADoL (ULTRAM) 50 mg tablet Indications: Closed burst fracture of lumbar vertebra, initial encounter ([facility]) Take 1 (one) tablet (50 mg total) by mouth every 6 (six) hours as needed (Days supply per fill: 2) . 8 tablet 0 01/18/2022 01/20/2022 Active End: 05-18-2023 take 1 tablet by mouth every eight hours as needed traMADol (Ultram) 50 mg tablet Take 1 tablet (50 mg) by mouth every 8 hours if needed for moderate pain (4 - 6). 0 05/18/2023 Discontinued (Stop Taking at Discharge) warfarin sodium 5 mg oral tablet (20 sources) Vitamin K Antagonist Start: 01-18-2022 End: 01-18-2022 warfarin (COUMADIN) tablet 5 mg Start: 01-16-2022 warfarin (COUM FELI) tablet 3 mg Start: 08-30-2021 warfarin (Coum feli) 4 MG tablet 5 mg. 0 08/30/2021 Active End: 01-15-2023 take 1 tablet by mouth four times weekly warfarin (Coumadin) 5 MG tablet Take 5 mg by mouth four times a week. Friday through 0 01/15/2023 Discontinued (Stop taking at discharge) End: 01-15-2023 warfarin (Coumadin) 5 MG tab let Take 10 mg by mouth three times a week. Every Friday, Friday and Friday 0 01/15/2023 Discontinued (Stop taking at discharge) take 1 tablet by jeffrey th once daily warfarin (COUMADIN) 2.5 MG tablet Take 1 (one) tablet (2.5 mg total) by mouth daily . 0 Active warfarin (COUMAD IN) 5 mg tablet Take 5 mg by mouth daily as directed. 07-24-2021: on hold since 07-21-2021 but prior was taking 7.5 mg daily. 0 Suspended Comment on above: Take 5 mg by mouth d aily as directed. 07-24-2021: on hold since 07-21-2021 but prior was taking 7.5 mg daily. Completed/Discontinued Medications Medication Drug Class(es) Dates Sig (Normalized) Sig (Original) acetaminophen 325 mg / oxyCODONE hydrochloride 5 mg oral tablet (5 sources) Opioid Agonist Start: 12-26-2023 End: 12-26-2023 take 1 tablet by mouth once as needed for pain 1 tablet, oral, Once, On Fri12/26/23 at 1705, For 1 dose, If ordered PRN for pain, nurse is permitted to administer this medication for higher pain scores based on patient preference? Yes Start: 12-26-2023 End: 12-29-2023 take 1 tablet by mouth four times daily oxyCODONE-acetaminophen (Percocet) 5-325 mg tablet Indications: Contusion of right hip, initial encounter , Humeral head fracture, right, closed, initial encounter , Closed fracture of proximal end of right humerus, unspecified fracture morphology, initial encounter Take 1 tablet by mouth 4 times a day for 3 days. 12 tablet 12/26/2023 12/29/2023 Active Start: 06-13-2023 End: 06-18-2023 take 1 tablet by mouth every six hours as needed for pain oxyCODONE-acetaminophen (Percocet) 5-325 MG tablet Indications: Post-operative pain Take 1 tablet by mouth every 6 hours as needed for severe pain (7-10) (pain) for up to 5 days. 15 tablet 0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 AUTO NRBC 0.0 % Normal [facility] Comment on above: Performed By: #### 4 6955 #### LAB [address] [address] Darryn Hazel M.D. [id number] AUTO NRBC ABS COUNT 0.00 K/mcL Normal 0.00-0.00 [facility] Comment on above: Performed By: #### 4 6932 #### LAB [address] [address] Darryn Hazel M.D. [id number] BASOPHILS ABSOLUTE COUNT 0.06 K/mcL Normal 0.00-0.30 [facility] Comment on above: Performed By: #### 4 6945 #### LAB [address] [address] Darryn Hazel M.D. [id number] Basophils/100 WBC (Bld) 0.6 % Normal [facility] Comment on above: Performed By: #### 4 6998 #### LAB [address] [address] Darryn Hazel M.D. [id number] Eosinophils (Bld) [#/Vol] 0.22 10*3/uL Normal 0.00-0.50 [facility] Comment on above: Performed By: #### 4 6986 #### LAB [address] [address] Darryn Hazel M.D. [id number] Eosinophils/100 WBC (Bld) 2.3 % Normal [facility] Comment on above: Performed By: #### 4 5487 #### LAB [address] [address] Darryn Hazel M.D. [id number] Erythrocyte distribution width (RBC) [Ratio] 15.5 % High 11.6-14.8 [facility] Comment on above: Performed By: #### 4 3997 #### LAB [address] [address] Darryn Hazel M.D. [id number] Hematocrit (Bld) [Volume fraction] 33.6 % Low 41.0-53.0 [facility] Comment on above: Performed By: #### 4 6933 #### LAB [address] [address] Darryn Hazel M.D. [id number] Hemoglobin (Bld) [Mass/Vol] 10.6 g/dL Low 13.5-17.5 [facility] Comment on above: Performed By: #### 4 3084 #### LAB [address] [address] Darryn Hazel M.D. [id number] IG ABSOLUTE 0.06 K/mcL Normal 0.00-0.30 [facility] Comment on above: Performed By: #### 4 0540 #### LAB [address] [address] Darryn Hazel M.D. [id number] IG PERCENT 0.60 % Normal [facility] Comment on above: Result Comment: The IG parameter is the percentage of metamyelocytes, myelocytes and promyelocytes. An immature granulocyte count (IG) of 1% or more suggests the possibility of infection, an IG count of 3% is very likely related to an infection. Performed By: #### 4 4897 #### LAB [address] [address] Darryn Hazel M.D. [id number] Lymphocytes (Bld) [#/Vol] 1.36 10*3/uL Normal 0.90-4.00 [facility] Comment on above: Performed By: #### 4 6895 #### LAB [address] [address] Darryn Hazel M.D. [id number] Lymphocytes/100 WBC (Bld) 14.4 % Normal [facility] Comment on above: Performed By: #### 4 6131 #### LAB [address] [address] Darryn Hazel M.D. [id number] MCH (RBC) [Entitic mass] 27.8 pg Normal 26.0-34.0 [facility] Comment on above: Performed By: #### 4 6601 #### LAB [address] [address] Darryn Hazel M.D. [id number] MCV (RBC) [Entitic vol] 88.2 fL Normal 80.0-100.0 [facility] Comment on above: Performed By: #### 4 6932 #### LAB [address] [address] Darryn Hazel M.D. [id number] MEAN CORPUSCULAR HEMOGLOBIN CONC 31.5 g/dL Normal 31.0-37.0 [facility] Comment on above: Performed By: #### 4 6932 #### LAB [address] [address] Darryn Hazel M.D. [id number] Monocytes (Bld) [#/Vol] 1.03 10*3/uL High 0.30-0.90 [facility] Comment on above: Performed By: #### 4 6932 #### LAB [address] [address] Darryn Hazel M.D. [id number] Monocytes/100 WBC (Bld) 10.9 % Normal [facility] Comment on above: Performed By: #### 4 6932 #### LAB [address] [address] Darryn Hazel M.D. [id number] NEUTROPHILS ABSOLUTE COUNT 6.74 K/mcL Normal 1.70-7.00 [facility] Comment on above: Performed By: #### 4 6932 #### LAB [address] [address] Darryn Hazel M.D. [id number] Neutrophils/100 WBC (Bld) 71.2 % Normal [facility] Comment on above: Performed By: #### 4 6946 #### LAB [address] [address] Darryn Hazel M.D. [id number] Platelet mean volume (Bld) [Entitic vol] 10.0 fL Normal 9.4-12.4 [facility] Comment on above: Performed By: #### 4 4310 #### LAB [address] [place], [place] [address] Darryn Hazel M.D. [id number] Platelets (Bld) [#/Vol] 261 10*3/uL Normal 150-400 [facility] Comment on above: Performed By: #### 4 6932 #### LAB [address] [address] Darryn Hazel M.D. [id number] RBC (Bld) [#/Vol] 3.81 10*6/uL Low 4.50-5.90 [facility] Comment on above: Performed By: #### 4 6932 #### LAB [address] [address] Darryn Hazel M.D. [id number] WBC (Bld) [#/Vol] 9.47 10*3/uL Normal 4.50-11.00 [facility] Comment on above: Performed By: #### 4 6932 #### LAB [address] [address] Darryn Hazel M.D. [id number] HEPATIC FUNCTION PANELon Albumin [Mass/Vol] 3.6 g/dL Normal 3.2-5.[address] [facility] Comment on above: Performed By: #### 4 6932 #### LAB [address] [address] Darryn Hazel M.D. [id number] ALP [Catalytic activity/Vol] 99 U/L Normal 40-150 [facility] Comment on above: Performed By: #### 4 6932 #### [facility] LAB [address] [id number] Darryn Hazel M.D. [id number] ALT < Normal 0-50 U/L [facility] Comment on above: Performed By: #### 4 6986 #### [facility] LAB [address] [address] Darryn Hazel M.D. [id number] AST [Catalytic activity/Vol] 18 U/L Normal 0-50 U/L [facility] Comment on above: Performed By: #### 4 6932 #### LAB [address] [address] Darryn Hazel M.D. [id number] Bilirubin [Mass/Vol] 1.0 mg/dL Normal 0.0-1.3 [facility] Comment on above: Performed By: #### 4 6932 #### LAB [address] [address] Darryn Hazel M.D. [id number] Bilirubin.indirect [Mass/Vol] 0.4 mg/dL Normal 0.0-0.4 [facility] Comment on above: Performed By: #### 4 6911 #### LAB [address] [address] Darryn Hazel M.D. [id number] Protein [Mass/Vol] 7.3 g/dL Normal 6.0-8.[address] [facility] Comment on above: Performed By: #### 4 6932 #### LAB [address] [address] Darryn Hazel M.D. [id number] MAGNESIUM LEVELon 01-02-2024 Magnesium [Mass/Vol] 2.7 mg/dL High 1.6-2.4 [facility] Comment on above: Performed By: #### 4 6932 #### LAB [address] [address] Darryn Hazel M.D. [id number] PHOSPHORUSon 01-02-2024 Phosphate [Mass/Vol] 3.5 mg/dL Normal 2.3-3.7 [facility] Comment on above: Performed By: #### 4 6937 #### LAB [address] [address] Darryn Hazel M.D. [id number] [facility] Glucose [Mass/Vol] 145 mg/dL High 65-[address] [facility] Comment on above: Performed By: #### 4 8287 #### LAB [address] [address] Darryn Hazel M.D. [id number] Glucose [Mass/Vol] 133 mg/dL High [address] [place] [address] Comment on above: Performed By: #### 4 6932 #### [facility] LAB [address] [address] Darryn Hazel M.D. [id number] Glucose [Mass/Vol] 145 mg/dL [address] Comment on above: Performed By: #### 4 6932 #### MH LAB [address] [address] Darryn Hazel M.D. [id number] Glucose [Mass/Vol] 189 mg/dL High [address] [place] [address] Comment on above: Performed By: #### 4 6932 #### MH LAB [address] [address] Darryn Hazel M.D. [id number] Glucose [Mass/Vol] 145 mg/dL [address] Comment on above: Performed By: #### 4 6932 #### LAB [address] [address] Darryn Hazel M.D. [id number] BASIC METABOLIC PANELon 10-3 Anion gap [Moles/Vol] 17 mmol/L Normal 10-20 [facility] Comment on above: Order Comment: [facility] has implemented the eGFR calculation approach that does not have a coefficient for race that conforms to the NKF-ASN Task Force Recommendations. Performed By: #### 4 6932 #### MH LAB [address] [address] Darryn Hazel M.D. [id number] Calcium [Mass/Vol] 9.4 mg/dL Normal 8.4-10.[address] [facility] Comment on above: Order Comment: [facility] has implemented the eGFR calculation approach that does not have a coefficient for race that conforms to the NKF-ASN Task Force Recommendations. Performed By: #### 4 6945 #### MH LAB [address] [address] Darryn Hazel M.D. [id number] Chloride [Moles/Vol] 99 mmol/L Normal 98-108 [facility] Comment on above: Order Comment: [facility] has implemented the eGFR calculation approach that does not have a coefficient for race that conforms to the NKF-ASN Task Force Recommendations. Performed By: #### 4 6932 #### LAB [address] [place], [place] [address] Darryn Hazel M.D. [id number] Creatinine [Mass/Vol] 0.93 mg/dL Normal 0.80-1.30 [facility] Comment on above: Order Comment: [facility] has implemented the eGFR calculation approach that does not have a coefficient for race that conforms to the NKF-ASN Task Force Recommendations. Performed By: #### 4 6932 #### LAB [address] [address] Darryn Hazel M.D. [id number] EGFR 83 mL/min/1.73 m2 Normal >=60 [facility] Comment on above: Order Comment: [facility] has implemented the eGFR calculation approach that does not have a coefficient for race that conforms to the NKF-ASN Task Force Recommendations. Result Comment: Fabiano mated GFR was calculated using the 2020 CKD-EPI creatinine equation. Performed By: #### 4 6932 #### LAB [address] [place], [place] [address] Darryn Hazel M.D. [id number] Glucose [Mass/Vol] 142 mg/dL High 65-[address] [facility] Comment on above: Order Comment: [facility] has implemented the eGFR calculation approach that does not have a coefficient for race that conforms to the NKF-ASN Task Force Recommendations. Performed By: #### 4 6951 #### LAB [address] [address] Darryn Hazel M.D. [id number] HCO3 (Bld) [Moles/Vol] 23 mmol/L Normal 21-32 [facility] Comment on above: Order Comment: [facility] has implemented the eGFR calculation approach that does not have a coefficient for race that conforms to the NKF-ASN Task Force Recommendations. Performed By: #### 4 6932 #### LAB [address] [place], [place] [address] Darryn Hazel M.D. [id number] Potassium [Moles/Vol] 4.2 mmol/L Normal 3.5-5.1 [facility] Comment on above: Order Comment: [facility] has implemented the eGFR calculation approach that does not have a coefficient for race that conforms to the NKF-ASN Task Force Recommendations. Performed By: #### 4 6932 #### LAB [address] [place], [place] [address] Darryn Hazel M.D. [id number] Sodium [Moles/Vol] 135 mmol/L Normal 135-[address] [facility] Comment on above: Order Comment: [facility] has implemented the eGFR calculation approach that does not have a coefficient for race that conforms to the NKF-ASN Task Force Recommendations. Performed By: #### 4 6932 #### LAB [address] [address] Darryn Hazel M.D. [id number] Urea nitrogen [Mass/Vol] 41 mg/dL High 8-25 [facility] Comment on above: Order Comment: [facility] has implemented the eGFR calculation approach that does not have a coefficient for race that conforms to the NKF-ASN Task Force Recommendations. Performed By: #### 4 6932 #### LAB [address] [place], [place] [address] Darryn Hazel M.D. [id number] Urea nitrogen/Creatinine [Mass ratio] 44.1 mg/mg High 10.0-20.0 [facility] Comment on above: Order Comment: [facility] has implemented the eGFR calculation approach that does not have a coefficient for race that conforms to the NKF-ASN Task Force Recommendations. Performed By: #### 4 6932 #### LAB [address] [address] Darryn Hazel M.D. [id number] CBC WITH AUTO DIFFERENTIALon 01-01-2024 AUTO NRBC 0.0 % Normal [facility] Comment on above: Performed By: #### 4 6915 #### LAB [address] [address] Darryn Hazel M.D. [id number] AUTO NRBC ABS COUNT 0.00 K/mcL Normal 0.00-0.00 [facility] Comment on above: Performed By: #### 4 6917 #### LAB [address] [address] Darryn Hazel M.D. [id number] BASOPHILS ABSOLUTE COUNT 0.04 K/mcL Normal 0.00-0.30 [facility] Comment on above: Performed By: #### 4 6924 #### LAB [address] [address] Darryn Hazel M.D. [id number] Basophils/100 WBC (Bld) 0.5 % [facility] Comment on above: Performed By: #### 4 5837 #### LAB [address] [address] Darryn Hazel M.D. [id number] Eosinophils (Bld) [#/Vol] 0.24 10*3/uL Normal 0.00-0.50 [facility] Comment on above: Performed By: #### 4 6932 #### LAB [address] [address] Darryn Hazel M.D. [id number] Eosinophils/100 WBC (Bld) 2.7 % Normal [facility] Comment on above: Performed By: #### 4 4224 #### LAB [address] [address] Darryn Hazel M.D. [id number] Erythrocyte distribution width (RBC) [Ratio] 15.4 % High 11.6-14.8 [facility] Comment on above: Performed By: #### 4 2301 #### LAB [address] [address] Darryn Hazel M.D. [id number] Hematocrit (Bld) [Volume fraction] 32.8 % Low 41.0-53.0 [facility] Comment on above: Performed By: #### 4 6999 #### LAB [address] [address] Darryn Hazel M.D. [id number] Hemoglobin (Bld) [Mass/Vol] 10.6 g/dL Low 13.5-17.5 [facility] Comment on above: Performed By: #### 4 9562 #### LAB [address] [address] Darryn Hazel M.D. [id number] IG ABSOLUTE 0.07 K/mcL Normal 0.00-0.30 [facility] Comment on above: Performed By: #### 4 9762 #### LAB [address] [address] Darryn Hazel M.D. [id number] IG PERCENT 0.80 % Normal [facility] Comment on above: Result Comment: The IG parameter is the percentage of metamyelocytes, myelocytes and promyelocytes. An immature granulocyte count (IG) of 1% or more suggests the possibility of infection, an IG count of 3% is very likely related to an infection. Performed By: #### 4 0903 #### LAB [address] [address] Darryn Hazel M.D. [id number] Lymphocytes (Bld) [#/Vol] 1.25 10*3/uL Normal 0.90-4.00 [facility] Comment on above: Performed By: #### 4 3914 #### LAB [address] [address] Darryn Hazel M.D. [id number] Lymphocytes/100 WBC (Bld) 14.3 % Normal [facility] Comment on above: Performed By: #### 4 2017 #### LAB [address] [address] Darryn Hazel M.D. [id number] MCH (RBC) [Entitic mass] 28.0 pg Normal 26.0-34.0 [facility] Comment on above: Performed By: #### 4 1475 #### LAB [address] [address] Darryn Hazel M.D. [id number] MCV (RBC) [Entitic vol] 86.8 fL Normal 80.0-100.0 [facility] Comment on above: Performed By: #### 4 6932 #### LAB [address] [address] Darryn Hazel M.D. [id number] MEAN CORPUSCULAR HEMOGLOBIN CONC 32.3 g/dL Normal 31.0-37.0 [facility] Comment on above: Performed By: #### 4 6932 #### LAB [address] [address] Darryn Hazel M.D. [id number] Monocytes (Bld) [#/Vol] 0.88 10*3/uL Normal 0.30-0.90 [facility] Comment on above: Performed By: #### 4 6980 #### LAB [address] [address] Darryn Hazel M.D. [id number] Monocytes/100 WBC (Bld) 10.0 % Normal [facility] Comment on above: Performed By: #### 4 8502 #### LAB [address] [address] Darryn Hazel M.D. [id number] NEUTROPHILS ABSOLUTE COUNT 6.28 K/mcL Normal 1.70-7.00 [facility] Comment on above: Performed By: #### 4 6991 #### LAB [address] [address] Darryn Hazel M.D. [id number] Neutrophils/100 WBC (Bld) 71.7 % Normal [facility] Comment on above: Performed By: #### 4 4182 #### LAB [address] [address] Darryn Hazel M.D. [id number] Platelet mean volume (Bld) [Entitic vol] 10.2 fL Normal 9.4-12.4 [facility] Comment on above: Performed By: #### 4 3859 #### LAB [address] [address] Darryn Hazel M.D. [id number] Platelets (Bld) [#/Vol] 229 10*3/uL Normal 150-400 [facility] Comment on above: Performed By: #### 4 6932 #### LAB [address] [address] Darryn Hazel M.D. [id number] RBC (Bld) [#/Vol] 3.78 10*6/uL Low 4.50-5.90 [facility] Comment on above: Performed By: #### 4 6932 #### LAB [address] [address] Darryn Hazel M.D. [id number] WBC (Bld) [#/Vol] 8.76 10*3/uL Normal 4.50-11.00 [facility] Comment on above: Performed By: #### 4 6932 #### LAB [address] [address] Darryn Hazel M.D. [id number] HEPATIC FUNCTION PANELon Albumin [Mass/Vol] 3.6 g/dL Normal 3.2-5.[address] [facility] Comment on above: Performed By: #### 4 6932 #### LAB [address] [address] Darrny Hazel M.D. [id number] ALP [Catalytic activity/Vol] 98 U/L Normal 40-150 [facility] Comment on above: Performed By: #### 4 6932 #### LAB [address] [address] Darryn Hazel M.D. [id number] ALT [Catalytic activity/Vol] 7 U/L Normal 0-50 U/L [facility] Comment on above: Performed By: #### 4 6979 #### LAB [address] [address] Darryn Hazel M.D. [id number] AST [Catalytic activity/Vol] 17 U/L Normal 0-50 U/L [facility] Comment on above: Performed By: #### 4 6943 #### LAB [address] [address] Darryn Hazel M.D. [id number] Bilirubin [Mass/Vol] 1.1 mg/dL Normal 0.0-1.3 [facility] Comment on above: Performed By: #### 4 6983 #### LAB [address] [address] Darryn Hazel M.D. [id number] Bilirubin.indirect [Mass/Vol] 0.4 mg/dL Normal 0.0-0.4 [facility] Comment on above: Performed By: #### 4 6934 #### LAB [address] [address] Darryn Hazel M.D. [id number] Protein [Mass/Vol] 7.0 g/dL Normal 6.0-8.[address] [facility] Comment on above: Performed By: #### 4 6967 #### LAB [address] [address] Darryn Hazel M.D. [id number] MAGNESIUM LEVELon 01-01-2024 Magnesium [Mass/Vol] 2.6 mg/dL High 1.6-2.4 [facility] Comment on above: Performed By: #### 4 6989 #### LAB [address] [address] Darryn Hazel M.D. [id number] PHOSPHORUSon 01-01-2024 Phosphate [Mass/Vol] 4.0 mg/dL High 2.3-3.7 [facility] Comment on above: Performed By: #### 4 1977 #### LAB [address] [address] Daryrn Hazel M.D. [id number] [facility] Glucose [Mass/Vol] 164 mg/dL High 65-[address] [facility] Comment on above: Performed By: #### 4 3839 #### LAB [address] [address] Darryn Hazel M.D. [id number] Glucose [Mass/Vol] 132 mg/dL High 65-[address] [facility] Comment on above: Performed By: #### 4 6932 #### LAB [address] [place], [place] [address] Darryn Hazel M.D. [id number] Glucose [Mass/Vol] 134 mg/dL High 65-[address] [facility] Comment on above: Performed By: #### 4 6932 #### [facility] LAB [address] [place] [address] Darryn Hazel M.D. [id number] Glucose [Mass/Vol] 152 mg/dL High 65-[address] [facility] Comment on above: Performed By: #### 4 6932 #### LAB [address] [place] [address] Darryn Hazel M.D. [id number] BASIC METABOLIC PANELon 10-3 0-2023 Anion gap [Moles/Vol] 16 mmol/L Normal 10-20 [facility] Comment on above: Order Comment: [facility] has implemented the eGFR calculation approach that does not have a coefficient for race that conforms to the NKF-ASN Task Force Recommendations. Performed By: #### 4 6932 #### LAB [address] [address] Darryn Hazel M.D. [id number] Calcium [Mass/Vol] 8.9 mg/dL Normal 8.4-10.[address] [facility] Comment on above: Order Comment: [facility] has implemented the eGFR calculation approach that does not have a coefficient for race that conforms to the NKF-ASN Task Force Recommendations. Performed By: #### 4 6932 #### LAB [address] [place] [address] Darryn Hazel M.D. [id number] Chloride [Moles/Vol] 99 mmol/L Normal 98-108 [facility] Comment on above: Order Comment: [facility] has implemented the eGFR calculation approach that does not have a coefficient for race that conforms to the NKF-ASN Task Force Recommendations. Performed By: #### 4 6932 #### LAB [address] [place] [address] Darryn Hazel M.D. [id number] Creatinine [Mass/Vol] 1.09 mg/dL Normal 0.80-1.30 [facility] Comment on above: Order Comment: [facility] has implemented the eGFR calculation approach that does not have a coefficient for race that conforms to the NKF-ASN Task Force Recommendations. Performed By: #### 4 6932 #### LAB [address] [place] [address] Darryn Hazel M.D. [id number] EGFR 69 mL/min/1.73 m2 Normal >=60 [facility] Comment on above: Order Comment: [facility] has implemented the eGFR calculation approach that does not have a coefficient for race that conforms to the NKF-ASN Task Force Recommendations. Result Comment: Fabiano mated GFR was calculated using the 2020 CKD-EPI creatinine equation. Performed By: #### 4 6932 #### LAB [address] [place] [address] Darryn Hazel M.D. [id number] Glucose [Mass/Vol] 158 mg/dL High 65-[address] [facility] Comment on above: Order Comment: [facility] has implemented the eGFR calculation approach that does not have a coefficient for race that conforms to the NKF-ASN Task Force Recommendations. Performed By: #### 4 6950 #### LAB [address] [place] [address] Darryn Hazel M.D. [id number] HCO3 (Bld) [Moles/Vol] 24 mmol/L Normal 21-32 [facility] Comment on above: Order Comment: [facility] has implemented the eGFR calculation approach that does not have a coefficient for race that conforms to the NKF-ASN Task Force Recommendations. Performed By: #### 4 6993 #### LAB [address] [address] Darryn Hazel M.D. [id number] Potassium [Moles/Vol] 4.4 mmol/L Normal 3.5-5.1 [facility] Comment on above: Order Comment: [facility] has implemented the eGFR calculation approach that does not have a coefficient for race that conforms to the NKF-ASN Task Force Recommendations. Performed By: #### 4 6932 #### LAB [address] [address] Darryn Hazel M.D. [id number] Sodium [Moles/Vol] 135 mmol/L Normal 135-[address] [facility] Comment on above: Order Comment: [facility] has implemented the eGFR calculation approach that does not have a coefficient for race that conforms to the NKF-ASN Task Force Recommendations. Performed By: #### 4 6932 #### LAB [address] [address] Darryn Hazel M.D. [id number] Urea nitrogen [Mass/Vol] 42 mg/dL High 8-25 [facility] Comment on above: Order Comment: [facility] has implemented the eGFR calculation approach that does not have a coefficient for race that conforms to the NKF-ASN Task Force Recommendations. Performed By: #### 4 6932 #### LAB [address] [address] Darryn Hazel M.D. [id number] Urea nitrogen/Creatinine [Mass ratio] 38.5 mg/mg High 10.0-20.0 [facility] Comment on above: Order Comment: [facility] has implemented the eGFR calculation approach that does not have a coefficient for race that conforms to the NKF-ASN Task Force Recommendations. Performed By: #### 4 6932 #### LAB [address] [address] Darryn Hazel M.D. [id number] CBC WITH AUTO DIFFERENTIALon 12-31-2023 AUTO NRBC 0.0 % Normal [facility] Comment on above: Performed By: #### L [id number] #### [facility] LAB [address] [address] Darryn Hazel M.D. [id number] AUTO NRBC ABS COUNT 0.00 K/mcL Normal 0.00-0.00 [facility] Comment on above: Performed By: #### L [id number] #### LAB [address] [address] Darryn Hazel M.D. [id number] BASOPHILS ABSOLUTE COUNT 0.06 K/mcL Normal 0.00-0.30 [facility] Comment on above: Performed By: #### L [id number] #### LAB [address] [address] Darryn Hazel M.D. [id number] Basophils/100 WBC (Bld) 0.6 % Normal [facility] Comment on above: Performed By: #### L [id number] #### LAB [address] [address] Darryn Hazel M.D. [id number] Eosinophils (Bld) [#/Vol] 0.28 10*3/uL Normal 0.00-0.50 [facility] Comment on above: Performed By: #### L [id number] #### LAB [address] [place] [address] Darryn Hazel M.D. [id number] Eosinophils/100 WBC (Bld) 2.8 % Normal [facility] Comment on above: Performed By: #### L [id number] #### LAB [address] [place] [address] Darryn Hazel M.D. [id number] Erythrocyte distribution width (RBC) [Ratio] 15.8 % High 11.6-14.8 [facility] Comment on above: Performed By: #### L [id number] #### LAB [address] [place] [address] Darryn Hazel M.D. [id number] Hematocrit (Bld) [Volume fraction] 35.5 % Low 41.0-53.0 [facility] Comment on above: Performed By: #### L [id number] #### LAB [address] [place] [address] Darryn Hazel M.D. [id number] Hemoglobin (Bld) [Mass/Vol] 11.1 g/dL Low 13.5-17.5 [facility] Comment on above: Performed By: #### L [id number] #### LAB [address] [address] Darryn Hazel M.D. [id number] IG ABSOLUTE 0.07 K/mcL Normal 0.00-0.30 [facility] Comment on above: Performed By: #### L [id number] #### LAB [address] [address] Darryn Hazel M.D. [id number] IG PERCENT 0.70 % Normal [facility] Comment on above: Result Comment: The IG parameter is the percentage of metamyelocytes, myelocytes and promyelocytes. An immature granulocyte count (IG) of 1% or more suggests the possibility of infection, an IG count of 3% is very likely related to an infection. Performed By: #### L [id number] #### LAB [address] [address] Darryn Hazel M.D. [id number] Lymphocytes (Bld) [#/Vol] 1.14 10*3/uL Normal 0.90-4.00 [facility] Comment on above: Performed By: #### L [id number] #### LAB [address] [address] Darryn Hazel M.D. [id number] Lymphocytes/100 WBC (Bld) 11.5 % Normal [facility] Comment on above: Performed By: #### L [id number] #### LAB [address] [address] Darryn Hazel M.D. [id number] MCH (RBC) [Entitic mass] 27.1 pg Normal 26.0-34.0 [facility] Comment on above: Performed By: #### L [id number] #### LAB [address] [address] Darryn Hazel M.D. [id number] MCV (RBC) [Entitic vol] 86.6 fL Normal 80.0-100.0 [facility] Comment on above: Performed By: #### L [id number] #### LAB [address] [address] Darryn Hazel M.D. [id number] MEAN CORPUSCULAR HEMOGLOBIN CONC 31.3 g/dL Normal 31.0-37.0 [facility] Comment on above: Performed By: #### L [id number] #### LAB [address] [address] Darryn Hazel M.D. [id number] Monocytes (Bld) [#/Vol] 0.90 10*3/uL Normal 0.30-0.90 [facility] Comment on above: Performed By: #### L [id number] #### LAB [address] [address] Darryn Hazel M.D. [id number] Monocytes/100 WBC (Bld) 9.1 % Normal [facility] Comment on above: Performed By: #### L [id number] #### LAB [address] [address] Darryn Hazel M.D. [id number] NEUTROPHILS ABSOLUTE COUNT 7.46 K/mcL High 1.70-7.00 [facility] Comment on above: Performed By: #### L [id number] #### LAB [address] [place] [address] Darryn Hazel M.D. [id number] Neutrophils/100 WBC (Bld) 75.3 % Normal [facility] Comment on above: Performed By: #### L [id number] #### LAB [address] [place] [address] Darryn Hazel M.D. [id number] Platelet mean volume (Bld) [Entitic vol] 10.3 fL Normal 9.4-12.4 [facility] Comment on above: Performed By: #### L [id number] #### LAB [address] [place] [address] Darryn Hazel M.D. [id number] Platelets (Bld) [#/Vol] 210 10*3/uL Normal 150-400 [facility] Comment on above: Performed By: #### L [id number] #### MH LAB [address] [place], [place] [address] Darryn Hazel M.D. [id number] RBC (Bld) [#/Vol] 4.10 10*6/uL Low 4.50-5.90 [facility] Comment on above: Performed By: #### L [id number] #### MH LAB [address] [place], [place] [address] Darryn Hazel M.D. [id number] WBC (Bld) [#/Vol] 9.91 10*3/uL Normal 4.50-11.00 [facility] Comment on above: Performed By: #### L [id number] #### MH LAB [address] [place], [place] [address] Darryn Hazel M.D. [id number] CONSULTon 12-31-2023 CONSULT REFERRING PHYSICIAN BRIAN HURTADO DO ATTENDING PHYSICIAN [facility] PRIMARY CARE PHYSICIAN PHYSICIAN ROWENA ADMITTING PHYSICIAN [facility] CONSULTING PHYSICIAN YAZ ORTEGA MD Ada is a pleasant 78-year-old gentleman who typically uses a walker or a Rollator to ambulate. Unfortunately had a mechanical fall yesterday and was found to have a right acetabular fracture. The gentleman says that he does typically uses a Rollator or a walker to ambulate with. I personally reviewed the CAT scan of this acetabulum and at this point in time, there is a small cortical irregularity in the superior dome of the acetabulum with no displacement. There are some mild degenerative changes. No evidence of a femoral neck or greater trochanter fracture. The cortical irregularity in the superior pubic rami leading into the acetabulum is nondisplaced. PAST MEDICAL HISTORY History of atrial fibrillation, prostate hypertrophy, coronary artery disease, congestive heart failure, stomach reflux, high cholesterol, hypertension, insomnia, diabetes. SURGERIES He has had cardiac surgery, coronary artery bypass graft, hernia repair, left total hip replacement. FAMILY HISTORY Noncontributory. SOCIAL HISTORY Does not smoke. ALLERGIES None. HOME MEDICATIONS Reviewed. PHYSICAL EXAMINATION General: He is awake, alert and oriented x3. He is pleasant. Extremities: Neurologically intact grossly in the lower extremities with 2+ pulses. Some pain with range of motion of the right hip, but minimal. IMPRESSION Right acetabular fracture. PLAN He can weight bear as tolerated, transition to extended care facility when able. I will see him in a month. D 12/31/2023 18:12 [id number] T 12/31/2023 19:20 MCB/MODL AUTHENTICATED BY YAZ ORTEGA, ON 01/01/2024 08:04:08 [facility] CONSULT Palliative Medicine Consult Note Asked by Clark Levine PA-C on 12/31/2023 to visit for Assistance with clarification of goals of care. Date of admission was 12/30/2023. Impressions & Recommendations Pertinent diagnoses: Encounter for palliative care Right nondisplaced intra-articular acetabular fracture Right mildly displaced proximal humerus fracture Extrinsic fall, history of recent falls Severe osteoarthritis of right hip joint Atrial fibrillation, on apixaban Intermittent bradycardia HFmrEF Hx SDH HTN HLD T2DM GERD MDD Goals of care: Had discussion about goals of care on 12/31/2023 with patient, who participated voluntarily at bedside. At this time, goals of care are Rehabilitative. As a result, I recommend that we continue current level of care. Plan: - continue current level of care - tentative plan for rehab (TCU vs facility) in [facility] due to insurance limitations - maintain code status as DNRCC per patient wishes Symptoms: Symptom management per primary team. Additionally: Capacity: Full capacity Surrogate decision-maker(s): Guilherme June (child), apparently named in HC-POA document NOT in [facility] files Code Status (as per [facility] policy P-100.058): Code status, prior to visit: DNRCC and is now: DNRCC. [facility] DNR Order form is required for [id number] care. DNR form is scanned into the EHR (i.e. Chart Review --> Media) and is available in the paper chart/folder. Follow-up: The Palliative Care team will continue to follow this patient / family with you. Thank you for allowing me to participate in the care of your patient. Kamini Thomas DO Palliative Medicine Physician Office: [phone] Cell: see hospital directory Process & Additional Information Clinical Summary: Ada is a 78 y.o. male with atrial fibrillation on apixaban, HFmrEF, HTN, HLD, GERD, BPH, and hx SDH. He was admitted 12/30/2023 for fall after presenting to [facility] as a transfer from [facility] where he initially presented after falling on his hip while using his rollator. Of note, he has had multiple recent falls, and was recently seen in outside ED on 12/25 where he was found to have a mildly displaced right humerus fracture. Hospital course has been notable for initial workup revealing CT head without acute process, CT right with acute, mildly comminuted, nondisplaced intra-articular fracture extending from anterior aspect of acetabulum through medial wall and into posterior aspect of acetabulum. Per trauma/ortho evaluation, no acute surgical intervention is being recommended, and pt will follow up with ortho outpatient in 1-2 weeks. Of note, patient apparently has a previous external code status of DNRCC at his [facility]. Palliative care is consulted for assistance with clarification of goals of care. Patient seen along with palliative GLORIA Hunt. Palliative care service and role introduced. Discussed patient's hospital course; he reported feeling some pain particularly with activity, and looking forward to leaving the hospital. He stated that he believes son Guilherme is his HCPOA. We reviewed his code status, and he noted that he would not want life support, ICU level of care, or major surgery. He is ok with limited medical workup and treatment, as well as rehab, and wants to maintain his code status as DNRCC. Visit was abbreviated as trauma team then arrived. 1359 - Patient's son Guilherme contacted via phone to provide a medical update. Guilherme is a physical therapist, and we discussed his father's hospital course including imaging, ortho recommendations, and PT/OT notes. We also discussed his code status of DNRCC, which Guilherme was not aware of. He did note that they have had deandra conversations about pts goals, although it has been some time, and that in the past he had not wanted limitations on his care. However, he quite understands and accepts if he does now. We also discussed possible discharge plan, and Guilherme stated that pt would likely need discharged to a nursing or rehab facility in the [facility] area for insurance reasons, as [facility] (he has stayed at [facility] in the past). Guilherme also raised the possible option of hospice in the future, which I advised he would likely not qualify for now, but that if his condition were to change, a hospice evaluation would probably be in line with his goals of focusing on quality of life and comfort. All questions and concerns addressed. During today's care, I collaborated with patient, family, staff including trauma surgery, bedside RN, and palliative IDT to gather information and coordinate care. Discussed patient's goals and plan of care. During today's care, I personally reviewed: BP (!) 170/72 Pulse (!) 59 Temp 97.9 degrees F (36.6 degrees C) (Oral) Resp 16 Ht 6' 3 Wt 84.4 kg (186 lb) SpO2 98% BMI 23.25 kg/m lab results, notable for Results from last 7 days L (more content not included)... Normal [facility] HEMOGLOBIN A1Con 12-31-2023 Glucose [Mass/Vol] 140 mg/dL High 74-[address] [facility] Comment on above: Performed By: #### 4 6932 #### MH LAB [address] [address] Darryn Hazel M.D. [id number] HbA1c (Bld) [Mass fraction] 6.5 % High 4.2-5.6 [facility] Comment on above: Performed By: #### 4 6932 #### MH LAB [address] [address] Darryn Hazel M.D. [id number] HEPATIC FUNCTION PANELon Albumin [Mass/Vol] 3.6 g/dL Normal 3.2-5.[address] [facility] Comment on above: Performed By: #### 4 6932 #### MH LAB [address] [address] Darryn Hazel M.D. [id number] ALP [Catalytic activity/Vol] 97 U/L Normal 40-150 [facility] Comment on above: Performed By: #### 4 6932 #### MH LAB [address] [address] Darryn Hazel M.D. [id number] ALT < Normal 0-50 U/L [facility] Comment on above: Result Comment: This result will not be reported. Performed By: #### 4 6932 #### LAB [address] [address] Darryn Hazel M.D. [id number] ALT RXL < Normal [facility] Comment on above: Result Comment: This result will not be reported. Performed By: #### 4 6932 #### LAB [address] [address] Darryn Hazel M.D. [id number] AST [Catalytic activity/Vol] 14 U/L Normal 0-50 U/L [facility] Comment on above: Performed By: #### 4 6932 #### LAB [address] [address] Darryn Hazel M.D. [id number] Bilirubin [Mass/Vol] 1.1 mg/dL Normal 0.0-1.3 [facility] Comment on above: Performed By: #### 4 6932 #### LAB [address] [address] Darryn Hazel M.D. [id number] Bilirubin.indirect [Mass/Vol] 0.4 mg/dL Normal 0.0-0.4 [facility] Comment on above: Performed By: #### 4 6932 #### LAB [address] [address] Darryn Hazel M.D. [id number] Protein [Mass/Vol] 7.3 g/dL Normal 6.0-8.[address] [facility] Comment on above: Performed By: #### 4 6905 #### LAB [address] [address] Darryn Hazel M.D. [id number] MAGNESIUM LEVELon 12-31-2023 Magnesium [Mass/Vol] 2.2 mg/dL Normal 1.6-2.4 [facility] Comment on above: Performed By: #### 4 6907 #### LAB [address] [address] Darryn Hazel M.D. [id number] PHOSPHORUSon 12-31-2023 Phosphate [Mass/Vol] 4.5 mg/dL High 2.3-3.7 [facility] Comment on above: Performed By: #### 4 6976 #### MH LAB [address] [address] Darryn Hazel M.D. [id number] POC [facility] Glucose [Mass/Vol] 137 mg/dL High [address] [place] [address] Comment on above: Performed By: #### 4 6928 #### MH LAB [address] [address] Darryn Hazel M.D. [id number] Glucose [Mass/Vol] 201 mg/dL High [address] [place] [address] Comment on above: Performed By: #### 4 6932 #### MH LAB [address] [address] Draryn Hazel M.D. [id number] Glucose [Mass/Vol] 166 mg/dL High [address] [place] [address] Comment on above: Performed By: #### 4 7746 #### LAB [address] [address] Darryn Hazel M.D. [id number] Glucose [Mass/Vol] 144 mg/dL High [address] [place] [address] Comment on above: Performed By: #### 4 5501 #### LAB [address] [address] Darryn Hazel M.D. [id number] TROPONINon 12-31-2023 BASELINE TROPONIN T NG/L 59 ng/L Off scale high <=22 [facility] Comment on above: Performed By: #### 4 6072 #### MH LAB [address] [address] Darryn Hazel M.D. [id number] TROPONIN T INTERPRETATION Possible acute cardiac injury. Normal [facility] Comment on above: Performed By: #### 4 4960 #### MH LAB [address] [address] Darryn Hazel M.D. [id number] TROPONIN T DELTA % NG/L 31 % Off scale high <20% of Baseline Troponin [facility] Comment on above: Performed By: #### 4 6908 #### LAB [address] [address] Darryn Hazel M.D. [id number] TROPONIN T DELTA CHANGE INTERPRETATION Probable acute injury or myocardial infarction. Normal [facility] Comment on above: Performed By: #### 4 6981 #### MH LAB [address] [address] Darryn Hazel M.D. [id number] TROPONIN T NG/L 54 ng/L Off scale high <=22 [facility] Comment on above: Performed By: #### 4 6932 #### LAB [address] [address] Darryn Hazel M.D. [id number] TSH WITH REFLEX FREE T4on TSH Qn 2.40 m[IU]/L Normal 0.27-4.20 [facility] Comment on above: Performed By: #### 4 6956 #### LAB [address] [address] Darryn Hazel M.D. [id number] B12/FOLATEon 12-30-2023 Cobalamin (Vitamin B12) [Mass/Vol] 323 pg/mL Normal 232-1245 [facility] Comment on above: Performed By: #### 4 6963 #### LAB [address] [address] Darryn Hazel M.D. [id number] FOLATE 11.4 ng/mL Normal 3.1-17.5 [facility] Comment on above: Result Comment: Defi cient <2.2 Borderline 2.2 - 3.0 Excessive >17.5 Performed By: #### 4 3960 #### LAB [address] [address] Darryn Hazel M.D. [id number] CBCon 12-30-2023 AUTO NRBC 0.0 % Normal [facility] Comment on above: Performed By: #### 4 6989 #### LAB [address] [address] Darryn Hazel M.D. [id number] AUTO NRBC ABS COUNT 0.00 K/mcL Normal 0.00-0.00 [facility] Comment on above: Performed By: #### 4 6907 #### LAB [address] [address] Darryn Hazel M.D. [id number] Erythrocyte distribution width (RBC) [Ratio] 15.8 % High 11.6-14.8 [facility] Comment on above: Performed By: #### 4 5321 #### LAB [address] [address] Darryn Hazel M.D. [id number] Hematocrit (Bld) [Volume fraction] 34.1 % Low 41.0-53.0 [facility] Comment on above: Performed By: #### 4 1428 #### LAB [address] [address] Darryn Hazel M.D. [id number] Hemoglobin (Bld) [Mass/Vol] 10.9 g/dL Low 13.5-17.5 [facility] Comment on above: Performed By: #### 4 6086 #### LAB [address] [address] Darryn Hazel M.D. [id number] MCH (RBC) [Entitic mass] 27.3 pg Normal 26.0-34.0 [facility] Comment on above: Performed By: #### 4 5254 #### LAB [address] [address] Darryn Hazel M.D. [id number] MCV (RBC) [Entitic vol] 85.5 fL Normal 80.0-100.0 [facility] Comment on above: Performed By: #### 4 6525 #### LAB [address] [address] Darryn Hazel M.D. [id number] MEAN CORPUSCULAR HEMOGLOBIN CONC 32.0 g/dL Normal 31.0-37.0 [facility] Comment on above: Performed By: #### 4 6932 #### MH LAB [address] [address] Darryn Hazel M.D. [id number] Platelet mean volume (Bld) [Entitic vol] 9.8 fL Normal 9.4-12.4 [facility] Comment on above: Performed By: #### 4 6932 #### MH LAB [address] [address] Darryn Hazel M.D. [id number] Platelets (Bld) [#/Vol] 204 10*3/uL Normal 150-400 [facility] Comment on above: Performed By: #### 4 6932 #### MH LAB [address] [address] Darryn Hazel M.D. [id number] RBC (Bld) [#/Vol] 3.99 10*6/uL Low 4.50-5.90 [facility] Comment on above: Performed By: #### 4 6932 #### MH LAB [address] [address] Darryn Hazel M.D. [id number] WBC (Bld) [#/Vol] 11.00 10*3/uL Normal 4.50-11.00 [facility] Comment on above: Performed By: #### 4 6932 #### LAB [address] [address] Darryn Hazel M.D. [id number] COMPREHENSIVE METABOLIC PANE Festus 12-30-2023 Albumin [Mass/Vol] 4.0 g/dL Normal 3.2-5.[address] [facility] Comment on above: Order Comment: [facility] has implemented the eGFR calculation approach that does not have a coefficient for race that conforms to the NKF-ASN Task Force Recommendations. Performed By: #### 4 6932 #### MH LAB [address] [address] Darryn Hazel M.D. [id number] ALP [Catalytic activity/Vol] 102 U/L Normal 40-150 [facility] Comment on above: Order Comment: [facility] has implemented the eGFR calculation approach that does not have a coefficient for race that conforms to the NKF-ASN Task Force Recommendations. Performed By: #### 4 6932 #### LAB [address] [address] Darryn Hazel M.D. [id number] ALT [Catalytic activity/Vol] 8 U/L Normal 0-50 U/L [facility] Comment on above: Order Comment: [facility] has implemented the eGFR calculation approach that does not have a coefficient for race that conforms to the NKF-ASN Task Force Recommendations. Performed By: #### 4 6925 #### LAB [address] [address] Darryn Hazel M.D. [id number] Anion gap [Moles/Vol] 17 mmol/L Normal 10-20 [facility] Comment on above: Order Comment: [facility] has implemented the eGFR calculation approach that does not have a coefficient for race that conforms to the NKF-ASN Task Force Recommendations. Performed By: #### 4 6932 #### LAB [address] [address] Darryn Hazel M.D. [id number] AST [Catalytic activity/Vol] 16 U/L Normal 0-50 U/L [facility] Comment on above: Order Comment: [facility] has implemented the eGFR calculation approach that does not have a coefficient for race that conforms to the NKF-ASN Task Force Recommendations. Performed By: #### 4 6963 #### LAB [address] [address] Darryn Hazel M.D. [id number] Bilirubin [Mass/Vol] 1.0 mg/dL Normal 0.0-1.3 [facility] Comment on above: Order Comment: [facility] has implemented the eGFR calculation approach that does not have a coefficient for race that conforms to the NKF-ASN Task Force Recommendations. Performed By: #### 4 6958 #### LAB [address] [address] Darryn Hazel M.D. [id number] Calcium [Mass/Vol] 9.5 mg/dL Normal 8.4-10.[address] [facility] [address] [facility] Comment on above: Order Comment: [facility] has implemented the eGFR calculation approach that does not have a coefficient for race that conforms to the NKF-ASN Task Force Recommendations. Performed By: #### [id number] #### LAB [address] [place] [address] Darryn Hazel M.D. [id number] Chloride [Moles/Vol] 98 mmol/L Normal 98-108 [facility] Comment on above: Order Comment: [facility] has implemented the eGFR calculation approach that does not have a coefficient for race that conforms to the NKF-ASN Task Force Recommendations. Performed By: #### 4 [id number] #### LAB [address] [place] [id number] Darryn Hazel M.D. [id number] Creatinine [Mass/Vol] 1.15 mg/dL Normal 0.80-1.30 [facility] Comment on above: Order Comment: [facility] has implemented the eGFR calculation approach that does not have a coefficient for race that conforms to the NKF-ASN Task Force Recommendations. Performed By: #### 4 [id number] #### LAB [address] [place], [place] [address] Darryn Hazel M.D. [id number] EGFR 64 mL/min/1.73 m2 Normal >=60 [facility] Comment on above: Order Comment: [facility] Services has implemented the eGFR calculation approach that does not have a coefficient for race that conforms to the NKF-ASN Task Force Recommendations. Result Comment: Fabiano mated GFR was calculated using the 2020 CKD-EPI creatinine equation. Performed By: #### 4 [id number] #### LAB [address] [place], [place] [address] Darryn Hazel M.D. [id number] Glucose [Mass/Vol] 149 mg/dL High 65-[address] [facility] Comment on above: Order Comment: [facility] Services has implemented the eGFR calculation approach that does not have a coefficient for race that conforms to the NKF-ASN Task Force Recommendations. Performed By: #### 4 [id number] #### LAB [address] [place] [id number] Darryn Hazel M.D. [id number] HCO3 (Bld) [Moles/Vol] 26 mmol/L Normal 21-32 [facility] Comment on above: Order Comment: [facility] has implemented the eGFR calculation approach that does not have a coefficient for race that conforms to the NKF-ASN Task Force Recommendations. Performed By: #### 4 [id number] #### LAB [address] [place] [address] Darryn Hazel M.D. [id number] Potassium [Moles/Vol] 4.7 mmol/L Normal 3.5-5.1 [facility] Comment on above: Order Comment: [facility] has implemented the eGFR calculation approach that does not have a coefficient for race that conforms to the NKF-ASN Task Force Recommendations. Performed By: #### 4 [id number] #### LAB [address] [place] [address] Darryn Hazel M.D. [id number] Protein [Mass/Vol] 7.4 g/dL Normal 6.0-8.[address] [facility] Comment on above: Order Comment: [facility] has implemented the eGFR calculation approach that does not have a coefficient for race that conforms to the NKF-ASN Task Force Recommendations. Performed By: #### 4 [id number] #### LAB [address] [place] [address] Darryn Hazel M.D. [id number] Sodium [Moles/Vol] 136 mmol/L Normal 135-[address] [facility] Comment on above: Order Comment: [facility] has implemented the eGFR calculation approach that does not have a coefficient for race that conforms to the NKF-ASN Task Force Recommendations. Performed By: #### [id number] #### LAB [address] [place] [address] Darryn Hazel M.D. [id number] Urea nitrogen [Mass/Vol] 39 mg/dL High 8-25 [facility] Comment on above: Order Comment: [facility] Services has implemented the eGFR calculation approach that does not have a coefficient for race that conforms to the NKF-ASN Task Force Recommendations. Performed By: #### 4 [id number] #### LAB [address] [place], [place] [address] Darryn Hazel M.D. [id number] Urea nitrogen/Creatinine [Mass ratio] 33.9 mg/mg High 10.0-20.0 [facility] Comment on above: Order Comment: [facility] has implemented the eGFR calculation approach that does not have a coefficient for race that conforms to the NKF-ASN Task Force Recommendations. Performed By: #### 4 [id number] #### LAB [address] [place], [place] [address] Darryn Hazel M.D. [id number] CT CERVICAL SPINE WITHOUT CO NTRASTon 12-30-2023 CT CERVICAL SPINE WITHOUT CONTRAST EXAM: CT CERVICAL SPINE WITHOUT QPFGKCAA11/29/2024 6:21 pm TECHNIQUE: Axial CT images were obtained through the cervical spine. Sagittal and coronal reformatted images were also obtained. Dose reduction techniques were achieved by using automated exposure control and/or adjustment of mA and/or kV according to patient size and/or use of iterative reconstruction technique. HISTORY: ORDERING SYSTEM PROVIDED HISTORY: fall [facility], TECHNOLOGIST PROVIDED HISTORY: Injury/Trauma Reason for exam: head and neck pain, worsening when neck is extended Encounter Type: Initial Mechanism of injury: fall friday ORDERING SYSTEM PROVIDED DIAGNOSIS CODES: COMPARISON: None FINDINGS: Bones: No fracture Alignment: The alignment is anatomic. No acute subluxation. Arthritic changes: Mild spondylosis of the mid and lower cervical spine. Moderate degenerative changes of the anterior C1-2 articulation. Disc spaces: No gross disc herniation given limitation of CT scan. Moderate degenerative annular disc bulging at C4-5 and C5-6 Soft tissues: No soft tissue mass or large hematoma. __ IMPRESSION: No acute traumatic injury. Workstation ID: [id number] Dictated by: JOEY BOND on FriDec 30, 2023 8:33:45 PM EDT Transcribed by: JOEY BOND on FriDec 30, 2023 8:33:45 PM EDT Finalized by: JOEY BOND on FriDec 30, 2023 8:33:45 PM EDT Normal [facility] Comment on above: Order Comment: Injur y/Trauma or Illness?:Injury/TraumaHow long have you had these symptoms (acute/chronic)?:AcuteReason for exam?:head and neck pain, worsening when neck is extendedType of Exam?:InitialMechanism of injury?:fall friday CT HEAD OR BRAIN WITHOUT CON TRASTon 12-30-2023 CT HEAD OR BRAIN WITHOUT CONTRAST EXAMINATION: CT HEAD OR BRAIN WITHOUT CONTRAST, 12/30/2023 COMPARISON: CT scan of the head, 01/14/2022. HISTORY: Injury/Trauma or Illness?:Injury/Trauma How long have you had these symptoms (acute/chronic)?:Acute fall on eliquis TECHNIQUE: 2.5 mm axial images performed through the head. 2.5 mm axial, sagittal and coronal MPR reconstructions performed. Dose reduction techniques were achieved by using automated exposure control and/or adjustment of mA and/or kV according to patient size and/or use of iterative reconstruction technique. FINDINGS: Two right-sided and 2 left-sided frontal audie holes are new since prior exam of 2021. Age-related cerebral and cerebellar atrophy with associated ventricle prominence. Nonspecific periventricular white matter low attenuation, likely a sequela of small vessel disease, has progressed since 2021. Old lacunar infarct in the basal ganglia bilaterally. There is no evidence of acute hemorrhage, mass effect or midline shift. Visualized paranasal sinuses demonstrate some mild mucosal thickening in the base of the maxillary sinuses bilaterally, right greater than left. Mastoid air cells are clear. No acute osseous abnormality. IMPRESSION: 1. No acute intracranial abnormality identified. 2. Age-related atrophy with associated ventricular prominence and periventricular white matter small vessel disease appears progressed since the prior exam of 2021. Old lacunar infarcts seen in the basal ganglia bilaterally. 3. Two right-sided and 2 left-sided surgical and frontal audie holes are new since 2021. [facility] Workstation ID: [id number] Dictated by: MESFIN PAYNE on FriDec 30, 2023 8:13:01 PM EDT Transcribed by: SAURABH AUSTIN on FriDec 30, 2023 8:17:52 PM EDT Finalized by: MESFIN PAYNE on FriDec 30, 2023 9:50:14 PM EDT Normal [facility] Comment on above: Order Comment: Injur y/Trauma or Illness?:Injury/TraumaHow long have you had these symptoms (acute/chronic)?:AcuteReason for exam?:head and neck pain, worsening when neck is extendedType of Exam?:InitialMechanism of injury?:fall on monday 12/25 CT HIP RIGHT WITHOUT CONTRAS Ton 12-30-2023 CT HIP RIGHT WITHOUT CONTRAST EXAMINATION: CT HIP RIGHT WITHOUT CONTRAST 12/30/2023. HISTORY: ORDERING SYSTEM PROVIDED HISTORY: Hip pain, stress fracture suspected, neg xray, TECHNOLOGIST PROVIDED HISTORY: Injury/Trauma Reason for exam: continued pain in the hip post fall, concern for stress FX neg xray on day of fall Encounter Type: Initial Mechanism of injury: fall ORDERING SYSTEM PROVIDED DIAGNOSIS CODES: COMPARISON: None TECHNIQUE: Dose reduction techniques were achieved by using automated exposure control and/or adjustment of mA and/or kV according to patient size and/or use of iterative reconstruction technique. Multiple contiguous axial CT images of the right hip were obtained without contrast. Sagittal and coronal reformatted images were made. CONTRAST: None. FINDINGS: There are moderate-severe degenerative changes of the visualized right sacroiliac joint. There are mild degenerative changes of the pubic symphysis. There are severe focal degenerative changes of the anterosuperior and the posterior aspect of the right hip joint with a [id number] appearance. There is an acute, mildly comminuted, nondisplaced fracture extending obliquely from the anterior aspect of the acetabulum through the medial wall of the acetabulum and into the posteromedial aspect of the acetabulum. This has intra-articular extension and is best seen on the sagittal and coronal images. No other fracture or dislocation is seen. There is a small hemarthrosis of the right hip joint. There is enthesophyte formation of the greater trochanter and the ischial tuberosity. There are vascular calcifications. IMPRESSION: 1. Acute, mildly comminuted, nondisplaced intra-articular fracture extending from the anterior aspect of the acetabulum through the medial wall of the acetabulum into the posteromedial aspect of the acetabulum. No other fracture or dislocation is seen. 2. 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 Workstation ID: [id number] Dictated by: ALINE GREENFIELD on FriDec 30, 2023 12:47:11 PM EDT Transcribed by: ALINE GREENFIELD on FriDec 30, 2023 12:47:11 PM EDT Finalized by: ALINE GREENFIELD on FriDec 30, 2023 12:47:11 PM EDT [facility] Comment on above: Order Comment: Injur y/Trauma or Illness?:Injury/Trauma How long have you had these symptoms (acute/chronic)?:Acute Reason for exam?:continued pain in the hip post fall, concern for stress FX neg xray on day of fall sustained shoulder FX in this same fall Type of Exam?:Initial Mechanism of injury?:fall ED Prov Noteon 12-30-2023 ED Prov Note [facility] ED KAEL Note: NAME: Ada June 78 y.o. CSN: [id number] PCP: No, Physician History: Chief Complaint: Fall HPI: The history was obtained from the patient. Ada is a 78 y.o. male who presents with a chief complaint of Fall. Patient has a history of atrial fibrillation on Coumadin, CAD, GERD, HTN, HLD, and DM2. Presents to the emergency department as a transfer from an outlying facility for trauma evaluation. Patient sustained a fall on 12/26/2023. He was diagnosed with a right humerus fracture and discharged on Percocet. He came back to the facility today as he was having increased pain and difficulty walking to the right hip. He was found to have a right acetabulum fracture and was transferred over here for further evaluation and care. On arrival, patient is alert and oriented. He is reporting increased pain. The pain medication that he was given prior to arrival did not help his pain. Trauma consulted on patient arrival PMHx: Past Medical History: Diagnosis Date Atrial fibrillation (HCC) BPH (benign prostatic hyperplasia) CAD (coronary artery disease) Congestive heart failure (CHF) (HCC) GERD (gastroesophageal reflux disease) Hyperlipidemia Hypertension Insomnia Iron deficiency anemia Type 2 diabetes mellitus (HCC) PMSx: Past Surgical History: Procedure Laterality Date CARDIAC SURGERY CABG x 3 with valve repair and cardiac implant HERNIA REPAIR INGUINAL OPEN scar tissue removal ureter stent scar tissue removal. TOTAL HIP ARTHROPLASTY Left FAM. Hx: History reviewed. No pertinent family history. SOC. Hx: Social History Socioeconomic History Marital status: Tobacco Use Smoking status: Former Types: Cigarettes Smokeless tobacco: Never Vaping Use Vaping status: Never Used Substance and Sexual Activity Alcohol use: Yes Comment: rare Drug use: Never Social Drivers of Health Financial Resource Strain: Low Risk (11/05/2023) Received from [facility] Overall Financial Resource Strain (CARDIA) Difficulty of Paying Living Expenses: Not very hard Transportation Needs: No Transportation Needs (11/05/2023) Received from [facility] PRAPARE - Transportation Lack of Transportation (Medical): No Lack of Transportation (Non-Medical): No Housing Stability: Low Risk (11/05/2023) Received from [facility] Housing Stability Vital Sign Unable to Pay for Housing in the Last Year: No Number of Times Moved in the Last Year: 1 Homeless in the Last Year: No MEDs: Previous Medications Medication Sig alendronate (FOSAMAX) 70 MG tablet Take 1 (one) tablet (70 mg total) by mouth once a week . atorvastatin (LIPITOR) 20 MG tablet Take 1 (one) tablet (20 mg total) by mouth daily . cholecalciferol, vitamin D3, 5,000 unit Tab tablet Take 1 (one) tablet (5,000 Units total) by mouth daily . glimepiride (AMARYL) 1 MG tablet Take 1 (one) tablet (1 mg total) by mouth daily . LUTEIN-ZEAXANTHIN ORAL Take 1 capsule by mouth daily . metoprolol succinate (TOPROL-XL) 25 MG 24 hr tablet Take 1 (one) tablet (25 mg total) by mouth daily Start: 01/19/22. mirtazapine (REMERON) 15 MG tablet Take 1 (one) tablet (15 mg total) by mouth nightly . omeprazole (PRILOSEC) 20 MG capsule Take 1 (one) capsule (20 mg total) by mouth daily . sacubitriL-valsartan (ENTRESTO) 24-26 mg per tablet Take 1 (one) tablet by mouth 2 (two) times a day . warfarin (COUMADIN) 2.5 MG tablet Take 1 (one) tablet (2.5 mg total) by mouth daily . ALL: No Known Allergies ROS: Positives and pertinent negatives as per HPI. All other systems were reviewed and are negative. Physical Exam: Patient Vitals for the past 24 hrs: BP Temp Temp src Pulse Resp SpO2 Height Weight 12/30/23 1830 (!) 187/75 -- -- 64 (!) 23 95 % -- -- 12/30/23 1815 -- -- -- 62 (!) 20 96 % -- -- 12/30/23 1800 (!) 162/59 -- -- (!) 53 18 93 % -- -- 12/30/23 1745 -- -- -- (!) 53 18 94 % -- -- 12/30/23 1730 (!) 192/63 -- -- 74 18 95 % -- -- 12/30/23 1715 (!) 180/62 -- -- 60 18 95 % -- -- 12/30/23 1708 -- -- -- -- (!) 22 -- -- -- 12/30/23 1700 (!) 183/67 -- -- 63 18 96 % -- -- 12/30/23 1645 (!) 172/60 -- -- 62 (!) 20 97 % -- -- 12/30/23 1630 (!) 173/70 -- -- 60 (!) 21 94 % -- -- 12/30/23 1624 (!) 173/70 97.9 degrees F (36.6 degrees C) Oral (!) 59 14 97 % 6' 3 84.4 kg (186 lb) Physical Exam Vitals and nursing note reviewed. Constitutional: General: He is not in acute distress. Appearance: Normal appearance. He is well-developed. He is not ill-appearing or toxic-appearing. HENT: Head: Normocephalic and atraumatic. Nose: Nose normal. Eyes: General: No scleral icterus. Conjunctiva/sclera: Conjunctivae normal. Cardiovascular: Rate and Rhythm: Normal rate and regular rhythm. Pulses: Radial pulses are 2+ on the right side and 2+ on the left side. Dorsalis pedis pulses are 2+ on (more content not included)... Normal [facility] ED Prov Note ED PROVIDER NOTE [facility] EM[facility]Y [facility] NAME: Ada June AGE: 78 y.o. : 1945 VISIT DATE: 12/30/2023 CSN: [id number] PCP: No primary care provider on file. Chief Complaint Patient presents with - Leg Pain Leg Pain Past Medical History: Diagnosis Date - Atrial fibrillation (HCC) - CAD (coronary artery disease) - GERD (gastroesophageal reflux disease) - Hyperlipidemia - Type 2 diabetes mellitus (HCC) Past Surgical History: Procedure Laterality Date - CARDIAC SURGERY CABG x 3 with valve repair and cardiac implant - HERNIA REPAIR INGUINAL OPEN - scar tissue removal ureter stent scar tissue removal. - TOTAL HIP ARTHROPLASTY Left History reviewed. No pertinent family history. Social History Socioeconomic History - Marital status: Tobacco Use - Smoking status: Former Types: Cigarettes - Smokeless tobacco: Never Vaping Use - Vaping status: Never Used Substance and Sexual Activity - Alcohol use: Yes Comment: rare - Drug use: Never Social Drivers of Health Financial Resource Strain: Low Risk (11/05/2023) Received from [facility] Overall Financial Resource Strain (CARDIA) - Difficulty of Paying Living Expenses: Not very hard Transportation Needs: No Transportation Needs (11/05/2023) Received from [facility] PRAPARE - Transportation - Lack of Transportation (Medical): No - Lack of Transportation (Non-Medical): No Housing Stability: Low Risk (11/05/2023) Received from [facility] Housing Stability Vital Sign - Unable to Pay for Housing in the Last Year: No - Number of Times Moved in the Last Year: 1 - Homeless in the Last Year: No Previous Medications Medication Sig - alendronate (FOSAMAX) 70 MG tablet Take 1 (one) tablet (70 mg total) by mouth once a week . - atorvastatin (LIPITOR) 20 MG tablet Take 1 (one) tablet (20 mg total) by mouth daily . - cholecalciferol, vitamin D3, 5,000 unit Tab tablet Take 1 (one) tablet (5,000 Units total) by mouth daily . - glimepiride (AMARYL) 1 MG tablet Take 1 (one) tablet (1 mg total) by mouth daily . - LUTEIN-ZEAXANTHIN ORAL Take 1 capsule by mouth daily . - metoprolol succinate (TOPROL-XL) 25 MG 24 hr tablet Take 1 (one) tablet (25 mg total) by mouth daily Start: 01/19/22. - mirtazapine (REMERON) 15 MG tablet Take 1 (one) tablet (15 mg total) by mouth nightly . - omeprazole (PRILOSEC) 20 MG capsule Take 1 (one) capsule (20 mg total) by mouth daily . - sacubitriL-valsartan (ENTRESTO) 24-26 mg per tablet Take 1 (one) tablet by mouth 2 (two) times a day . - warfarin (COUMADIN) 2.5 MG tablet Take 1 (one) tablet (2.5 mg total) by mouth daily . No Known Allergies Review of Systems Patient Vitals for the past 24 hrs: BP Temp Pulse Resp SpO2 Height Weight 12/30/23 1137 -- -- -- 18 -- -- -- 12/30/23 1119 (!) 171/54 98.4 degrees F (36.9 degrees C) 60 18 97 % 6' 3 84.4 kg (186 lb) Physical Exam Laboratory & Radiographic Imaging (if done): No results found for this visit on 12/30/23. CT Hip Right Without Contrast (Results Pending) Procedures Medical Decision Making The patient has been informed that they may have pre-hypertension or hypertension based on a blood pressure reading in the Emergency Department. I recommend that the patient call the primary care provider listed on their discharge instructions or a physician of their choice as soon as possible to arrange follow-up in the next 4 weeks for further evaluation of possible pre-hypertension or hypertension. . Clinical Impression: No diagnosis found. ED Disposition None Follow-up Information Follow-up information has not been specified. Contact information for after-discharge care Follow-up information has not been specified. Brian Hurtado DO 12/30/23 1636 AUTHENTICATED BY BRIAN HURTADO, ON 12/30/2023 16:36:[address] [facility] MRSA DNA AMPLIFIED PROBEon 1 MRSA DNA AMPLIFIED PROBE Negative Normal Not Detected, MRSA NEGATIVE [facility] Comment on above: Performed By: #### [id number] #### [facility] LAB [address] [place] [address] Darryn Hazel M.D. [id number] NT PRO BNPon 12-30-2023 Natriuretic peptide B (Bld) [Mass/Vol] 1799 pg/mL High 0-300 [facility] Comment on above: Order Comment: Pride Study Cut-offsRule In:< /= 50 Years >450 pg/mL51 Years - 75 Years >900 pg/mL76 Years - 99 Years >1800 pg/mLRule Out:All patients <300 pg/mL Performed By: #### 4 [id number] #### LAB [address] [place], [place] [address] Darryn Hazel M.D. [id number] [facility] Glucose [Mass/Vol] 168 mg/dL High 65-[address] [facility] Comment on above: Performed By: #### 4 [id number] #### LAB [address] [place] [address] Darryn Hazel M.D. [id number] Glucose [Mass/Vol] 162 mg/dL High 65-99 [facility] PT/INRon 12-30-2023 INR Coag (PPP) [Relative time] 1.6 {INR} High 0.8-1.1 [facility] Comment on above: Order Comment: Durdeborah g the induction phase of oral anticoagulation, the INR may not reflect the anticoagulation status of the patient. Therapeutic ranges for INR's are:Most clinical situations: INR 2.0-3.0Mechanical Prosthetic Valve: INR 2.5-3.5Critical: INR >5.0 Performed By: #### 4 [id number] #### LAB [address] [place], [place] [address] Darryn Hazel M.D. [id number] PT Coag (PPP) [Time] 19.2 s High 11.8-14.3 [facility] Comment on above: Order Comment: Dhruv g the induction phase of oral anticoagulation, the INR may not reflect the anticoagulation status of the patient. Therapeutic ranges for INR's are:Most clinical situations: INR 2.0-3.0Mechanical Prosthetic Valve: INR 2.5-3.5Critical: INR >5.0 Performed By: #### 4 [id number] #### LAB [address] [place] [address] Darryn Hazel M.D. [id number] TROPONINon 12-30-2023 BASELINE TROPONIN T NG/L 41 ng/L Off scale high <=22 [facility] Comment on above: Performed By: #### 4 [id number] #### LAB [address] [place], [place] [address] Darryn Hazel M.D. [id number] TROPONIN T INTERPRETATION Possible acute cardiac injury. Normal [facility] Comment on above: Performed By: #### 4 [id number] #### LAB [address] [place], [place] [address] Darryn Hazel M.D. [id number] VITAMIN D, TOTAL, 25-[place]on VITAMIN D 25-HYDROXY 42 ng/mL Normal 20-100 [facility] Comment on above: Order Comment: Vitam in D Expected ValuesDeficiency: 0-10Insufficiency: 10-20Sufficient: 20-100Toxicity: >100 Performed By: #### 4 [id number] #### LAB [address] [place], [place] [address] Darryn Hazel M.D. [id number] XR CHEST PA/APon 12-30-2023 XR CHEST PA/AP EXAMINATION: XR CHEST PA/AP CLINICAL STATEMENT: ORDERING SYSTEM PROVIDED HISTORY: Fall, TECHNOLOGIST PROVIDED HISTORY: Injury/Trauma Reason for exam: fall Cancer History: u Surgery, RadiationHistory: u Encounter Type: Initial Mechanism of injury: fall ORDERING SYSTEM PROVIDED DIAGNOSIS CODES: S42.294A Other closed nondisplaced fracture of proximal end of right humerus, initial encounter S32.401A Closed nondisplaced fracture of right acetabulum, unspecified portion of acetabulum, initial encounter ([facility] W19.XXXA Fall, initial encounter R26.9 Gait abnormality COMPARISON: None. TECHNIQUE: A frontal view of the chest is submitted. FINDINGS: Cardiac silhouette is mildly enlarged. Patient is status post median sternotomy and prosthetic valve replacement. A loop recorder overlies the lower mid chest. A left atrial appendage clip is also in place. There is no vascular congestion. Chronic interstitial changes are present in the lungs. No acute airspace disease is present.There is no costophrenic angle blunting. There is a deformity of the left proximal humerus which is incompletely imaged on this examination. IMPRESSION: 1. No definitive acute cardiopulmonary process. 2. Left proximal humerus deformity incompletely imaged on this examination. This is likely due to a fracture of indeterminate age based on this exam.. Workstation ID: [id number] Dictated by: SRI LYNN on FriDec 31, 2023 1:40:50 AM EDT Transcribed by: SRI LYNN on FriDec 31, 2023 1:40:50 AM EDT Finalized by: SRI LYNN on FriDec 31, 2023 1:40:50 AM EDT Normal [facility] Comment on above: Order Comment: Injur y/Trauma or Illness?:Injury/TraumaHow long have you had these symptoms (acute/chronic)?:AcuteReason for exam?:fallHistory of cancer?:uSurgeries, chemotherapy, or radiation?:uType of Exam?:InitialMechanism of injury?:fall No Panel Informationon 12-25 Radiology Study observation (narrative) [facility] Work Phone: XR HIP RIGHT WITH PELVIS WHE N PERFORMED 2 OR 3 VIEWSon 12-26-2023 XR HIP RIGHT WITH PELVIS WHEN PERFORMED 2 OR 3 VIEWS STUDY: Pelvis and Right Hip Radiographs; 12/26/2023 3:28 PM INDICATION: Right hip pain. COMPARISON: None Available. ACCESSION NUMBER(S): [id number] ORDERING CLINICIAN: KEN FULLER TECHNIQUE: AP view of the pelvis (two images) and two view(s) of the right hip. FINDINGS: No acute fractures or dislocations are visualized within the right hip. There is moderate narrowing and spurring at the joint space. No acute findings are seen within the iliac wings or pubic rami. A left hip prosthesis is present. IMPRESSION: Moderate degenerative changes within the right hip joint. Signed by Camron Sin MD [facility] XR Hip Viewson 12-26-2023 Moderate degenerativ e changes within the right hip joint. Signed by Camron Sin MD TELERADIOLOGY STUDY: Pelvis and Right Hip Radiographs; 12/26/2023 3:28 PM INDICATION: Right hip pain. COMPARISON: None Available. ACCESSION NUMBER(S): [id number] ORDERING CLINICIAN: KEN FULLER TECHNIQUE: AP view of the pelvis (two images) and two view(s) of the right hip. FINDINGS: No acute fractures or dislocations are visualized within the right hip. There is moderate narrowing and spurring at the joint space. No acute findings are seen within the iliac wings or pubic rami. A left hip prosthesis is present. TELERADIOLOGY Camron Sin MD - 12/26/2023 STUDY: Pelvis and Right Hip Radiographs; 12/26/2023 3:28 PM INDICATION: Right hip pain. COMPARISON: None Available. ACCESSION NUMBER(S): [id number] ORDERING CLINICIAN: KEN FULLER TECHNIQUE: AP view of the pelvis (two images) and two view(s) of the right hip. FINDINGS: No acute fractures or dislocations are visualized within the right hip. There is moderate narrowing and spurring at the joint space. No acute findings are seen within the iliac wings or pubic rami. A left hip prosthesis is present. IMPRESSION: Moderate degenerative changes within the right hip joint. Signed by Camron Sin MD [facility] Work Phone: XR Hip ViewsOrdered By: Zelda Sin on 12-26-2023 [facility] Work Phone: XR SHOULDER RIGHT 2+ VIEWSon 12-26-2023 XR SHOULDER RIGHT 2+ VIEWS STUDY: Shoulder Radiographs; 12/26/23 at 3:28 PM INDICATION: Fall. COMPARISON: None available. ACCESSION NUMBER(S): [id number] ORDERING CLINICIAN: KEN FULLER TECHNIQUE: Two view(s) of the right shoulder. FINDINGS: There is an oblique mildly displaced acute fracture of the metaphysis of the proximal right humerus. There are degenerative changes of the shoulder. There is soft tissue swelling. IMPRESSION: Oblique mildly displaced acute fracture of the metaphysis of the proximal right humerus. Signed by Ramone Matute MD [facility] XR Shoulder - right 2 Viewso n 12-26-2023 Oblique mildly displaced acute fracture of the metaphysis of the proximal right humerus. Signed by Ramone Matute MD TELERADIOLOGY STUDY: Shoulder Radiographs; 12/26/23 at 3:28 PM INDICATION: Fall. COMPARISON: None available. ACCESSION NUMBER(S): [id number] ORDERING CLINICIAN: KEN FULLER TECHNIQUE: Two view(s) of the right shoulder. FINDINGS: There is an oblique mildly displaced acute fracture of the metaphysis of the proximal right humerus. There are degenerative changes of the shoulder. There is soft tissue swelling. TELERADIOLOGY Ramone Matute MD - 12/26/2023 STUDY: Shoulder Radiographs; 12/26/23 at 3:28 PM INDICATION: Fall. COMPARISON: None available. ACCESSION NUMBER(S): [id number] ORDERING CLINICIAN: KEN FULLER TECHNIQUE: Two view(s) of the right shoulder. FINDINGS: There is an oblique mildly displaced acute fracture of the metaphysis of the proximal right humerus. There are degenerative changes of the shoulder. There is soft tissue swelling. IMPRESSION: Oblique mildly displaced acute fracture of the metaphysis of the proximal right humerus. Signed by Ramone Matute MD [facility] Work Phone: XR Shoulder - right 2 ViewsO rdered By: Ramone Matute on 12-26-2023 [facility] Work Phone: CBC panel Auto (Bld)on 11-07 Erythrocyte distribution width (RBC) [Ratio] 15.0 % High 11.5-14.5 [facility] Comment on above: Performed By: #### 5 8410-2 #### POOJA KHANNA ([id number]) [facility] ([facility]) [address] [place] [address] Hematocrit (Bld) [Volume fraction] 34.2 % Low 41.0-52.0 [facility] Comment on above: Performed By: #### 5 8410-2 #### POOJA KHANNA ([id number]) [facility] ([facility]) [address] [place] [address] Hemoglobin (Bld) [Mass/Vol] 11.2 g/dL Low 13.5-17.5 [facility] Comment on above: Performed By: #### 5 8410-2 #### POOJA KHANNA ([id number]) [facility] ([facility]) [address] [place] [address] MCH (RBC) [Entitic mass] 27.9 pg Normal 26.0-34.0 [facility] Comment on above: Performed By: #### 5 8410-2 #### POOJA KHANNA ([id number]) [facility] ([facility]) [address] [place] [address] MCHC (RBC) [Mass/Vol] 32.7 g/dL Normal 32.0-36.0 [facility] Comment on above: Performed By: #### 5 8410-2 #### POOJA KHANNA ([id number]) [facility] ([facility]) [address] [place] [address] MCV (RBC) [Entitic vol] 85 fL Normal 80-100 [facility] Comment on above: Performed By: #### 5 8410-2 #### POOJA KHANNA ([id number]) [facility] ([facility]) [address] [place] [address] Nucleated RBC/100 WBC (Bld) [Ratio] 0.0 /100 WBCs Normal 0.0-0.0 [facility] Comment on above: Performed By: #### 5 8410-2 #### POOJA KHANNA ([id number]) [facility] ([facility]) [address] [place] [address] Platelets (Bld) [#/Vol] 165 x10*3/uL Normal 150-450 [facility] Comment on above: Performed By: #### 5 8410-2 #### POOJA KHANNA ([id number]) [facility] ([facility]) [address] [place] [address] RBC (Bld) [#/Vol] 4.02 x10*6/uL Low 4.50-5.90 [facility] Comment on above: Performed By: #### 5 8410-2 #### POOJA KHANNA ([id number]) [facility] ([facility]) [address] [place] [address] WBC (Bld) [#/Vol] 3.4 x10*3/uL Low 4.4-11.3 [facility] Comment on above: Performed By: #### 5 8410-2 #### POOJA KHANNA ([id number]) [facility] ([facility]) [address] [place] [address] Magnesiumon 11-08-2023 Magnesium [Mass/Vol] 1.76 mg/dL Normal 1.60-2.40 [facility] Comment on above: Performed By: #### 1 9123-9 #### POOJA KHANNA ([id number]) [facility] ([facility]) [address] [place] [address] Renal function 2000 panelon 11-08-2023 Albumin BCP dye [Mass/Vol] 3.7 g/dL Normal 3.4-5.0 [facility] Comment on above: Performed By: #### 2 4362-6 #### POOJA KHANNA ([id number]) [facility] ([facility]) [address] [place] [address] Anion gap [Moles/Vol] 12 mmol/L Normal 10-20 [facility] Comment on above: Performed By: #### 2 4362-6 #### POOJA KHANNA ([id number]) [facility] ([facility]) [address] [place] [address] Calcium [Mass/Vol] 8.7 mg/dL Normal 8.6-10.3 [facility] [place] [facility] Comment on above: Performed By: #### 2 4362-6 #### POOJA KHANNA ([id number]) [facility] ([facility]) [address] [place] [address] Chloride [Moles/Vol] 102 mmol/L Normal 98-107 [facility] Comment on above: Performed By: #### 2 4362-6 #### POOJA KHANNA ([id number]) [facility] ([facility]) [address] [place] [address] CO2 [Moles/Vol] 25 mmol/L Normal 21-32 [facility] Comment on above: Performed By: #### 2 4362-6 #### POOJA KHANNA ([id number]) [facility] ([facility]) [address] [place] [address] Creatinine [Mass/Vol] 1.06 mg/dL Normal 0.50-1.30 [facility] Comment on above: Performed By: #### 2 4362-6 #### POOJA KHANNA ([id number]) [facility] ([facility]) [address] [place] [address] Glomerular filtration rate/1.73 sq M.predicted 71 mL/min/1.73m*2 Normal >60 [facility] Comment on above: Result Comment: Calc ulations of estimated GFR are performed using the 2020 CKD-EPI Study Refit equation without the race variable for the IDMS-Traceable creatinine methods. https://jasn.asnjournals.org/content/early//ASN.421512 6756 Performed By: #### 2 4362-6 #### POOJA KHANNA ([id number]) [facility] ([facility]) [address] [place] [address] Glucose [Mass/Vol] 92 mg/dL Normal 74-99 [facility] [place] [facility] Comment on above: Performed By: #### 2 4362-6 #### POOJA KHANNA ([id number]) [facility] ([facility]) [address] [place] [address] Phosphate [Mass/Vol] 3.8 mg/dL Normal 2.5-4.9 [facility] Comment on above: Result Comment: The performance characteristics of phosphorus testing in heparinized plasma have been validated by the individual laboratory site where testing is performed. Testing on heparinized plasma is not approved by the FDA; however, such approval is not necessary. Performed By: #### 2 4362-6 #### POOJA KHANNA ([id number]) [facility] ([facility]) [address] [place] [address] Potassium [Moles/Vol] 3.7 mmol/L Normal 3.5-5.3 [facility] Comment on above: Performed By: #### 2 4362-6 #### POOJA KHANNA ([id number]) [facility] ([facility]) [address] [place] [address] Sodium [Moles/Vol] 135 mmol/L Low 136-145 [facility] [place] [facility] Comment on above: Performed By: #### 2 4362-6 #### POOJA KHANNA ([id number]) [facility] ([facility]) [address] [place] [address] Urea nitrogen [Mass/Vol] 24 mg/dL High 6-23 [facility] Comment on above: Performed By: #### 2 4362-6 #### POOJA KHANNA ([id number]) [facility] ([facility]) [address] [place] [address] CBC panel Auto (Bld)on 11-06 Erythrocyte distribution width (RBC) [Ratio] 15.1 % High 11.5-14.5 [facility] Comment on above: Performed By: #### 5 8410-2 #### POOJA KHANNA ([id number]) [facility] ([facility]) [address] [place] [address] Hematocrit (Bld) [Volume fraction] 33.9 % Low 41.0-52.0 [facility] Comment on above: Performed By: #### 5 8410-2 #### POOJA KHANNA ([id number]) [facility] ([facility]) [address] [place] [address] Hemoglobin (Bld) [Mass/Vol] 11.0 g/dL Low 13.5-17.5 [facility] Comment on above: Performed By: #### 5 8410-2 #### POOJA KHANNA ([id number]) [facility] ([facility]) [address] [place] [address] MCH (RBC) [Entitic mass] 27.7 pg Normal 26.0-34.0 [facility] Comment on above: Performed By: #### 5 8410-2 #### POOJA KHANNA ([id number]) [facility] ([facility]) [address] [place] [address] MCHC (RBC) [Mass/Vol] 32.4 g/dL Normal 32.0-36.0 [facility] Comment on above: Performed By: #### 5 8410-2 #### POOJA KHANNA ([id number]) [facility] ([facility]) [address] [place] [address] MCV (RBC) [Entitic vol] 85 fL Normal 80-100 [facility] Comment on above: Performed By: #### 5 8410-2 #### POOJA KHANNA ([id number]) [facility] ([facility]) [address] [place] [address] Nucleated RBC/100 WBC (Bld) [Ratio] 0.0 /100 WBCs Normal 0.0-0.0 [facility] Comment on above: Performed By: #### 5 8410-2 #### POOJA KHANNA ([id number]) [facility] ([facility]) [address] [place] [address] Platelets (Bld) [#/Vol] 161 x10*3/uL Normal 150-450 [facility] Comment on above: Performed By: #### 5 8410-2 #### POOJA KHANNA ([id number]) [facility] ([facility]) [address] [place] [address] RBC (Bld) [#/Vol] 3.97 x10*6/uL Low 4.50-5.90 [facility] Comment on above: Performed By: #### 5 8410-2 #### POOJA KHANNA ([id number]) [facility] ([facility]) [address] [place] [address] WBC (Bld) [#/Vol] 3.3 x10*3/uL Low 4.4-11.3 [facility] Comment on above: Performed By: #### 5 8410-2 #### POOJA KHANNA ([id number]) [facility] ([facility]) [address] [place] [address] ECG 12-LEADon 11-07-2023 ECG 12-LEAD Systolic BP 153 Diastolic BP 78 Ventricular Rate 50 Atrial Rate 56 QRS Duration 156 Q-T Interval 566 QTC Calculation(Bazett) 516 R Hermitage 137 T Hermitage -47 QRS Count 8 Q Onset 209 T Offset 492 QTC Fredericia 532 Diagnosis Ventricular-paced rhythm Abnormal ECG Confirmed by Terrell Morley ([id number]) on 11/14/2023 3:52:00 PM Normal [facility] Magnesiumon 11-07-2023 Magnesium [Mass/Vol] 1.72 mg/dL Normal 1.60-2.40 [facility] Comment on above: Performed By: #### 1 9123-9 #### POOJA KHANNA ([id number]) [facility] ([facility]) [address] [place] [address] Renal function 2000 panelon 11-07-2023 Albumin BCP dye [Mass/Vol] 3.5 g/dL Normal 3.4-5.0 [facility] Comment on above: Performed By: #### 2 4362-6 #### POOJA KHANNA ([id number]) [facility] ([facility]) [address] [place] [address] Anion gap [Moles/Vol] 15 mmol/L Normal 10-20 [facility] Comment on above: Performed By: #### 2 4362-6 #### POOJA KHANNA ([id number]) [facility] ([facility]) [address] [place] [address] Calcium [Mass/Vol] 8.3 mg/dL Low 8.6-10.3 [facility] [place] [facility] Comment on above: Performed By: #### 2 4362-6 #### POOJA KHANNA ([id number]) [facility] ([facility]) [address] [place] [address] Chloride [Moles/Vol] 103 mmol/L Normal 98-107 [facility] Comment on above: Performed By: #### 2 4362-6 #### POOJA KHANNA ([id number]) [facility] ([facility]) [address] [place] [address] CO2 [Moles/Vol] 23 mmol/L Normal 21-32 [facility] Comment on above: Performed By: #### 2 4362-6 #### POOJA KHANNA ([id number]) [facility] ([facility]) [address] [place] [address] Creatinine [Mass/Vol] 1.14 mg/dL Normal 0.50-1.30 [facility] Comment on above: Performed By: #### 2 4362-6 #### POOJA KHANNA ([id number]) [facility] ([facility]) [address] [place] [address] Glomerular filtration rate/1.73 sq M.predicted 65 mL/min/1.73m*2 Normal >60 [facility] Comment on above: Result Comment: Calc ulations of estimated GFR are performed using the 2020 CKD-EPI Study Refit equation without the race variable for the IDMS-Traceable creatinine methods. https://jasn.asnjournals.org/content/early/ASN.135856 0757 Performed By: #### 2 4362-6 #### POOJA KHANNA ([id number]) [facility] ([facility]) [address] [place] [address] Glucose [Mass/Vol] 86 mg/dL Normal 74-99 [facility] [place] [facility] Comment on above: Performed By: #### 2 4362-6 #### POOJA KHANNA ([id number]) [facility]) [address] [place] [address] Phosphate [Mass/Vol] 4.8 mg/dL Normal 2.5-4.9 [facility] Comment on above: Result Comment: The performance characteristics of phosphorus testing in heparinized plasma have been validated by the individual laboratory site where testing is performed. Testing on heparinized plasma is not approved by the FDA; however, such approval is not necessary. Performed By: #### 2 4362-6 #### POOJA KHANNA ([id number]) [facility] ([facility]) [address] [place] [address] Potassium [Moles/Vol] 3.6 mmol/L Normal 3.5-5.3 [facility] Comment on above: Performed By: #### 2 4362-6 #### POOJA KHANNA ([id number]) [facility]) [address] [place] [address] Sodium [Moles/Vol] 137 mmol/L Normal 136-145 [facility] [facility] Comment on above: Performed By: #### 2 4362-6 #### POOJA KHANNA ([id number]) [facility]) [address] [place] [address] Urea nitrogen [Mass/Vol] 27 mg/dL High 6-23 [facility] Comment on above: Performed By: #### 2 4362-6 #### POOJA KHANNA ([id number]) [facility] ([facility]) [address] [place] [address] Basic metabolic 2000 panelon 11-06-2023 Anion gap [Moles/Vol] 13 mmol/L Normal 10-20 [facility] Comment on above: Performed By: #### 2 4321-2 #### POOJA KHANNA ([id number]) [facility] ([facility]) [address] [place] [address] Calcium [Mass/Vol] 8.6 mg/dL Normal 8.6-10.3 [facility] [facility] Comment on above: Performed By: #### 2 4321-2 #### POOJA KHANNA ([id number]) [facility]) [address] [place] [address] Chloride [Moles/Vol] 103 mmol/L Normal 98-107 [facility] Comment on above: Performed By: #### 2 4321-2 #### POOJA KHANNA ([id number]) [facility]) [address] [place] [address] CO2 [Moles/Vol] 26 mmol/L Normal 21-32 [facility] Comment on above: Performed By: #### 2 4321-2 #### POOJA KHANNA ([id number]) [facility]) [address] [place] [address] Creatinine [Mass/Vol] 1.16 mg/dL Normal 0.50-1.30 [facility] Comment on above: Performed By: #### 2 4321-2 #### POOJA KHANNA ([id number]) [facility]) [address] [place] [address] Glomerular filtration rate/1.73 sq M.predicted 64 mL/min/1.73m*2 Normal >60 [facility] Comment on above: Result Comment: Calc ulations of estimated GFR are performed using the 2020 CKD-EPI Study Refit equation without the race variable for the IDMS-Traceable creatinine methods. https://jasn.asnjournals.org/content/early//ASN.223695 1076 Performed By: #### 2 4321-2 #### POOJA KHANNA ([id number]) [facility]) [address] [place] [address] Glucose [Mass/Vol] 89 mg/dL Normal 74-99 [facility] [place] [facility] Comment on above: Performed By: #### 2 4321-2 #### POOJA GUNTERFRI ([id number]) [facility]) [address] [place] [address] Potassium [Moles/Vol] 3.7 mmol/L Normal 3.5-5.3 [facility] Comment on above: Performed By: #### 2 4321-2 #### POOJA KHANNA ([id number]) [facility]) [address] [place] [address] Sodium [Moles/Vol] 138 mmol/L Normal 136-145 [facility] Comment on above: Performed By: #### 2 4321-2 #### POOJA GUNTERFRI ([id number]) [facility]) [address] [place] [address] Urea nitrogen [Mass/Vol] 27 mg/dL High 6-23 [facility] Comment on above: Performed By: #### 2 4321-2 #### POOJA GUNTERFRI ([id number]) [facility]) [address] [place] [address] ECG 12-LEADon 11-06-2023 ECG 12-LEAD Systolic BP 195 Diastolic BP 79 Ventricular Rate 50 Atrial Rate 50 QRS Duration 146 Q-T Interval 528 QTC Calculation(Bazett) 481 R Hermitage 125 T Hermitage -48 QRS Count 9 Q Onset 208 T Offset 472 QTC Fredericia 497 Diagnosis Wide QRS rhythm with Premature ventricular complexes or Fusion complexes Nonspecific intraventricular block Lateral infarct , age undetermined Abnormal ECG Confirmed by Terrell Morley ([id number]) on 11/14/2023 3:51:11 PM Normal [facility] TRANSTHORACIC ECHO (TTE) COM PLETEon 11-06-2023 TRANSTHORACIC ECHO (TTE) COMPLETE [facility], [address] [place] [address] and TRANSTHORACIC ECHOCARDIOGRAM REPORT Patient Name: ADA JUNE Reading Physician: [id number] Bob MD Study Date: 11/06/2023 Ordering Provider: [id number] BOB MRN/PID: [id number] Fellow: Nurse: Date of /Age: 6 1945 / 78 years [employer] Supervisor: Margarito JANE, YOGI DAVIDSON Gender: M Additional Staff: Height: 175.26 cm Admit Date: 11/05/2023 Weight: 96.16 kg Admission Status: Inpatient - Routine BSA / BMI: 2.12 m2 / 31.31 kg/m2 Blood Pressure: 178/70 mmHg Department Location: [address] [facility] Study Type: TRANSTHORACIC ECHO (TTE) COMPLETE Diagnosis/ICD: Ischemic cardiomyopathy-I25.5 Indication: Dyspnea CPT Code: Echo Complete w Full Doppler-[id number] Patient History: Pertinent History: A-Fib, Dyspnea, Cardiomyopathy, CAD and Hyperlipidemia. 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 Study Detail: The following Echo studies were performed: 2D, M-Mode, Doppler and color flow. Technically challenging study due to body habitus, prominent lung artifact and Bradycardia/AF. Definity used as a contrast agent for endocardial border definition. Total contrast used for this procedure was 2 mL via IV push. PHYSICIAN INTERPRETATION: Left Ventricle: The left ventricular systolic function is normal, with a visually estimated ejection fraction of 55-60%. There are no regional left ventricular wall motion abnormalities. The left ventricular cavity size is normal. Left ventricular diastolic filling was indeterminate. Left Atrium: The left atrium is mild to moderately dilated. Right Ventricle: The right ventricle is normal in size. There is normal right ventricular global systolic function. Right Atrium: The right atrium is mildly dilated. Aortic Valve: The aortic valve was not well visualized. There is evidence of mild aortic valve stenosis. The aortic valve dimensionless index is 0.34. There is no evidence of aortic valve regurgitation. The peak instantaneous gradient of the aortic valve is 29.8 mmHg. The mean gradient of the aortic valve is 15.0 mmHg. Mitral Valve: The mitral valve is mildly thickened. There is evidence of mild mitral valve stenosis. The doppler estimated mean and peak diastolic pressure gradients are 3.0 mmHg and 12.2 mmHg respectively. The doppler estimated mitral valve area is 2.20 cm??? by the pressure half time method. Status post mitral annular ring repair. There is no evidence of mitral valve regurgitation. Tricuspid Valve: The tricuspid valve was not well visualized. There is trace tricuspid regurgitation. The Doppler estimated RVSP is within normal limits at 19.2 mmHg. Pulmonic Valve: The pulmonic valve is not well visualized. There is no indication of pulmonic valve regurgitation. Pericardium: There is no pericardial effusion noted. Aorta: The aortic root was not well visualized. CONCLUSIONS: 1. The left ventricular systolic function is normal, with a visually estimated ejection fraction of 55-60%. 2. Mild aortic valve stenosis. 3. There is normal right ventricular global systolic function. 4. The left atrium is mild to moderately dilated. 5. RVSP within normal limits. 6. Left ventricular diastolic filling was indeterminate. QUANTITATIVE DATA SUMMARY: 2D MEASUREMENTS: Normal Ranges: Ao Root d: 3.60 cm (2.0-3.7cm) LAs: 4.70 cm (2.7-4.0cm) IVSd: 0.90 cm (0.6-1.1cm) LVPWd: 0.80 cm (0.6-1.1cm) LVIDd: 5.50 cm (3.9-5.9cm) LVIDs: 3.10 cm LV Mass Index: 82 g/m2 LVEDV Index: 51 ml/m2 LV % FS 43.6 % LA VOLUME: Normal Ranges: LA Vol A4C: 77.0 ml (22+/-6mL/m2) LA Vol A2C: 79.3 ml LA Vol BP: 79.3 ml LA Vol Index A4C: 36.4ml/m2 LA Vol Index A2C: 37.4 ml/m2 LA Vol Index BP: 37.4 ml/m2 LA Area A4C: 25.0 cm2 LA Area A2C: 25.0 cm2 LA Major Hermitage A4C: 6.9 cm LA Major Hermitage A2C: 6.7 cm LA Volume Index: 35.0 ml/m2 RA VOLUME BY A/L METHOD: Normal Ranges: RA Area A4C: 21.0 cm2 M-MODE MEASUREMENTS: Normal Ranges: Ao Root: 2.80 cm (2.0-3.7cm) LAs: 4.90 cm (2.7-4.0cm) AORTA MEASUREMENTS: Normal Ranges: Asc Ao, d: 3.60 cm (2.1-3.4cm) LV SYSTOLIC FUNCTION BY 2D PLANIMETRY (MOD): Normal Ranges: EF-A4C View: 77 % (>=55%) EF-A2C View: 56 % EF-Biplane: 66 % EF-Visual: 58 % LV EF Reported: 58 % MITRAL VALVE: Normal Ranges: MV Vmax: 1.75 m/s (<=1.3m/s) MV peak P.2 mmHg (<5mmHg) MV mean P.0 mmHg (<2mmHg) MV PHT: 100 msec (30-60msec) MVA by PHT: 2.20 cm2 (4-6cm2) AORTIC VALVE: Normal Ranges: AoV Vmax: 2.73 m/s (<=1.7m/s) AoV Peak P.8 mmHg (<20mmHg) AoV Mean P.0 mmHg (1.7-11.5mmHg) LVOT Max Kenneth: 0.93 m/s (<=1.1m/s) AoV VTI: 65.00 cm (18-25cm) LVOT VTI: 22.20 cm AoV Dimensionless Index: 0.34 RIGHT VENTRICLE: RV Basal 4.20 cm TRICUSPID VALVE/RVSP: Normal Ranges: Peak TR Velocity: 2.01 m/s TV Vmax 1.51 m/s RV Syst Pres (more content not included)... [facility] BASIC METABOLIC PANELon 09-0 Anion gap [Moles/Vol] 16 mmol/L Normal 10-20 [facility] Comment on above: Order Comment: [facility] has implemented the eGFR calculation approach that does not have a coefficient for race that conforms to the NKF-ASN Task Force Recommendations. Performed By: #### 4 6932 #### LAB [address] [place] [address] Darryn Hazel M.D. [id number] Calcium [Mass/Vol] 8.7 mg/dL Normal 8.4-10.[address] [facility] Comment on above: Order Comment: [facility] has implemented the eGFR calculation approach that does not have a coefficient for race that conforms to the NKF-ASN Task Force Recommendations. Performed By: #### 4 6932 #### LAB [address] [place], [place] [address] Darryn Hazel M.D. [id number] Chloride [Moles/Vol] 105 mmol/L Normal 98-108 [facility] Comment on above: Order Comment: [facility] has implemented the eGFR calculation approach that does not have a coefficient for race that conforms to the NKF-ASN Task Force Recommendations. Performed By: #### 4 6932 #### LAB [address] [place], [place] [address] Darryn Hazel M.D. [id number] Creatinine [Mass/Vol] 1.41 mg/dL High 0.80-1.30 [facility] Comment on above: Order Comment: [facility] has implemented the eGFR calculation approach that does not have a coefficient for race that conforms to the NKF-ASN Task Force Recommendations. Performed By: #### 4 6971 #### LAB [address] [place] [address] Darryn Hazel M.D. [id number] EGFR 50 mL/min/1.73 m2 Low >=60 [facility] Comment on above: Order Comment: [facility] has implemented the eGFR calculation approach that does not have a coefficient for race that conforms to the NKF-ASN Task Force Recommendations. Result Comment: Fabiano mated GFR was calculated using the 2020 CKD-EPI creatinine equation. Performed By: #### 4 6979 #### [address] [place] [address] Darryn Hazel M.D. [id number] Glucose [Mass/Vol] 96 mg/dL Normal 65-[address] [facility] Comment on above: Order Comment: [facility] has implemented the eGFR calculation approach that does not have a coefficient for race that conforms to the NKF-ASN Task Force Recommendations. Performed By: #### 4 6932 #### [address] [place] [address] Darryn Hazel M.D. [id number] HCO3 (Bld) [Moles/Vol] 22 mmol/L Normal 21-32 [facility] Comment on above: Order Comment: [facility] has implemented the eGFR calculation approach that does not have a coefficient for race that conforms to the NKF-ASN Task Force Recommendations. Performed By: #### 4 6932 #### [address] [place] [address] Darryn Hazel M.D. [id number] Potassium [Moles/Vol] 4.1 mmol/L Normal 3.5-5.1 [facility] Comment on above: Order Comment: [facility] has implemented the eGFR calculation approach that does not have a coefficient for race that conforms to the NKF-ASN Task Force Recommendations. Performed By: #### 4 6924 #### LAB [address] [place] [address] Darryn Hazel M.D. [id number] Sodium [Moles/Vol] 139 mmol/L Normal 135-[address] [facility] Comment on above: Order Comment: [facility] has implemented the eGFR calculation approach that does not have a coefficient for race that conforms to the NKF-ASN Task Force Recommendations. Performed By: #### 4 6979 #### LAB [address] [place] [address] Darryn Hazel M.D. [id number] Urea nitrogen [Mass/Vol] 34 mg/dL High 8-25 [facility] Comment on above: Order Comment: [facility] has implemented the eGFR calculation approach that does not have a coefficient for race that conforms to the NKF-ASN Task Force Recommendations. Performed By: #### 4 6957 #### LAB [address] [place] [address] Darryn Hazel M.D. [id number] Urea nitrogen/Creatinine [Mass ratio] 24.1 mg/mg High 10.0-20.0 [facility] Comment on above: Order Comment: [facility] has implemented the eGFR calculation approach that does not have a coefficient for race that conforms to the NKF-ASN Task Force Recommendations. Performed By: #### 4 6937 #### [address] [place] [address] Darryn Hazel M.D. [id number] CBCon 11-05-2023 AUTO NRBC 0.0 % Normal [facility] Comment on above: Performed By: #### 4 6958 #### LAB [address] [place] [address] Darryn Hazel M.D. [id number] AUTO NRBC ABS COUNT 0.00 K/mcL Normal 0.00-0.00 [facility] Comment on above: Performed By: #### 4 6984 #### LAB [address] [place] [address] Darryn Hazel M.D. [id number] Erythrocyte distribution width (RBC) [Ratio] 15.6 % High 11.6-14.8 [facility] Comment on above: Performed By: #### 4 6997 #### LAB [address] [place] [address] Darryn Hazel M.D. [id number] Hematocrit (Bld) [Volume fraction] 32.9 % Low 41.0-53.0 [facility] Comment on above: Performed By: #### 4 6987 #### LAB [address] [place] [address] Darryn Hazel M.D. [id number] Hemoglobin (Bld) [Mass/Vol] 10.2 g/dL Low 13.5-17.5 [facility] Comment on above: Performed By: #### 4 6933 #### LAB [address] [place] [address] Darryn Hazel M.D. [id number] MCH (RBC) [Entitic mass] 27.9 pg Normal 26.0-34.0 [facility] Comment on above: Performed By: #### 4 6988 #### LAB [address] [place] [address] Darryn Hazel M.D. [id number] MCV (RBC) [Entitic vol] 90.1 fL Normal 80.0-100.0 [facility] Comment on above: Performed By: #### 4 6913 #### [facility] [address] [place] [address] Darryn Hazel M.D. [id number] MEAN CORPUSCULAR HEMOGLOBIN CONC 31.0 g/dL Normal 31.0-37.0 [facility] Comment on above: Performed By: #### 4 9315 #### LAB [address] [place] [address] Darryn Hazel M.D. [id number] Platelet mean volume (Bld) [Entitic vol] 12.1 fL Normal 9.4-12.4 [facility] Comment on above: Performed By: #### 4 6944 #### LAB [address] [place] [address] Darryn Hazel M.D. [id number] Platelets (Bld) [#/Vol] 152 10*3/uL Normal 150-400 [facility] Comment on above: Performed By: #### 4 2726 #### LAB [address] [place] [address] Darryn Hazel M.D. [id number] RBC (Bld) [#/Vol] 3.65 10*6/uL Low 4.50-5.90 [facility] Comment on above: Performed By: #### 4 4017 #### LAB [address] [place], [place] [address] Darryn Hazel M.D. [id number] WBC (Bld) [#/Vol] 5.49 10*3/uL Normal 4.50-11.00 [facility] Comment on above: Performed By: #### 4 6932 #### LAB [address] [place], [place] [address] Darryn Hazel M.D. [id number] CBC W Auto Differential pane l (Bld)on 11-05-2023 Basophils (Bld) [#/Vol] 0.01 x10*3/uL Normal 0.00-0.10 [facility] Comment on above: Performed By: #### 5 902-2 #### VINNY AVILEZ ([id number]) [facility] ([facility]) [address] [place] [address] 541[address] Basophils/100 WBC (Bld) 0.2 % Normal 0.0-2.0 [facility] Comment on above: Performed By: #### 5 902-2 #### VINNY AVILEZ ([id number]) [facility] ([facility]) [address] [place] [address] 29896 Eosinophils (Bld) [#/Vol] 0.01 x10*3/uL Normal 0.00-0.40 [facility] Comment on above: Performed By: #### 5 902-2 #### VINNY AVILEZ ([id number]) [facility] ([facility]) [address] [place] [address] 84994 Eosinophils/100 WBC (Bld) 0.2 % Normal 0.0-6.0 [facility] Comment on above: Performed By: #### 5 902-2 #### VINNY AVILEZ ([id number]) [facility] ([facility]) [address] [place] [address] 65137 Erythrocyte distribution width (RBC) [Ratio] 15.3 % High 11.5-14.5 [facility] Comment on above: Performed By: #### 5 902-2 #### VINNY AVILEZ ([id number]) [facility] ([facility]) [address] [place] [address] 22519 Hematocrit (Bld) [Volume fraction] 33.5 % Low 41.0-52.0 [facility] Comment on above: Performed By: #### 5 902-2 #### VINNY AVILEZ ([id number]) [facility] ([facility]) [address] [place] [address] 30078 Hemoglobin (Bld) [Mass/Vol] 10.3 g/dL Low 13.5-17.5 [facility] Comment on above: Performed By: #### 5 902-2 #### VINNY AVILEZ ([id number]) [facility] ([facility]) [address] [place] [address] 08802 Immature granulocytes (Bld) [#/Vol] 0.04 x10*3/uL Normal 0.00-0.50 [facility] Comment on above: Performed By: #### 5 902-2 #### VINNY AVILEZ ([id number]) [facility] ([facility]) [address] [place] [address] 28856 Immature granulocytes/100 WBC (Bld) 0.7 % Normal 0.0-0.9 [facility] Comment on above: Result Comment: Jina ture Granulocyte Count (IG) includes promyelocytes, myelocytes and metamyelocytes but does not include bands. Percent differential counts (%) should be interpreted in the context of the absolute cell counts (cells/UL). Performed By: #### 5 902-2 #### VINNY AVILEZ ([id number]) [facility] ([facility]) [address] [place] [address] 39186 Lymphocytes (Bld) [#/Vol] 0.62 x10*3/uL Low 0.80-3.00 [facility] Comment on above: Performed By: #### 5 902-2 #### VINNY AVILEZ ([id number]) [facility] ([facility]) [address] [place] [address] 73515 Lymphocytes/100 WBC (Bld) 10.5 % Normal 13.0-44.0 [facility] Comment on above: Performed By: #### 5 902-2 #### VINNY AVILEZ ([id number]) [facility] ([facility]) [address] [place] [address] 65398 MCH (RBC) [Entitic mass] 27.0 pg Normal 26.0-34.0 [facility] Comment on above: Performed By: #### 5 902-2 #### VINNY AVILEZ ([id number]) [facility] ([facility]) [address] [place] [address] 60681 MCHC (RBC) [Mass/Vol] 30.7 g/dL Low 32.0-36.0 [facility] Comment on above: Performed By: #### 5 902-2 #### VINNY AVILEZ ([id number]) [facility] ([facility]) [address] [place] [address] 25785 MCV (RBC) [Entitic vol] 88 fL Normal 80-100 [facility] Comment on above: Performed By: #### 5 902-2 #### VINNY AVILEZ ([id number]) [facility] ([facility]) [address] [place] [address] 39508 Monocytes (Bld) [#/Vol] 1.07 x10*3/uL High 0.05-0.80 [facility] Comment on above: Performed By: #### 5 902-2 #### VINNY AVILEZ ([id number]) [facility] ([facility]) [address] [place] [address] 91497 Monocytes/100 WBC (Bld) 18.2 % Normal 2.0-10.0 [facility] Comment on above: Performed By: #### 5 902-2 #### VINNY AVILEZ ([id number]) [facility] ([facility]) [address] [place] [address] 05717 Neutrophils (Bld) [#/Vol] 4.14 x10*3/uL Normal 1.60-5.50 [facility] Comment on above: Result Comment: Perc ent differential counts (%) should be interpreted in the context of the absolute cell counts (cells/uL). Performed By: #### 5 902-2 #### VINNY AVILEZ ([id number]) [facility] ([facility]) [address] [place] [address] 21979 Neutrophils/100 WBC (Bld) 70.2 % Normal 40.0-80.0 [facility] Comment on above: Performed By: #### 5 902-2 #### VINNY AVILEZ ([id number]) [facility] ([facility]) [address] [place] [address] 21828 Nucleated RBC/100 WBC (Bld) [Ratio] 0.0 /100 WBCs Normal 0.0-0.0 [facility] Comment on above: Performed By: #### 5 902-2 #### VINNY AVILEZ ([id number]) [facility] ([facility]) [address] [place] [address] 41962 Platelets (Bld) [#/Vol] 155 x10*3/uL Normal 150-450 [facility] Comment on above: Performed By: #### 5 902-2 #### VINNY AVILEZ ([id number]) [facility] ([facility]) [address] [place] [address] 45012 RBC (Bld) [#/Vol] 3.81 x10*6/uL Low 4.50-5.90 [facility] Comment on above: Performed By: #### 5 902-2 #### VINNY AVILEZ ([id number]) [facility] ([facility]) [address] [place] [address] 11291 WBC (Bld) [#/Vol] 5.9 x10*3/uL Normal 4.4-11.3 [facility] Comment on above: Performed By: #### 5 902-2 #### VINNY AVILEZ ([id number]) [facility] ([facility]) [address] [place] [address] ANGIO CHEST FOR PULMONARY EMBOLISMon 11-05-2023 CT ANGIO CHEST FOR PULMONARY EMBOLISM Interpreted By: Jens Ash, STUDY: CT ANGIO CHEST FOR PULMONARY EMBOLISM; 11/05/2023 1:34 pm INDICATION: Signs/Symptoms:Chest pain, elevated D-dimer. COMPARISON: 05/15/2023 ACCESSION NUMBER(S): [id number] ORDERING CLINICIAN: TATYANA GOETZ TECHNIQUE: Contiguous axial images of the chest were obtained after the intravenous administration of iodinated contrast using angiographic PE protocol. Coronal and sagittal reformatted images were reconstructed from the axial data. MIP images were created on an independent workstation and reviewed. FINDINGS: MEDIASTINUM AND LYMPH NODES: Small hiatal hernia. The esophageal wall appears within normal limits. Scattered prominent intrathoracic lymph nodes are likely chronically reactive in nature given grossly similar to less pronounced compared to prior study. No pneumomediastinum. VESSELS: Postsurgical changes of ascending aortic repair with reimplantation and aortic valve replacement. There is no acute abnormality of the aorta there is mild aortic atherosclerosis. The proximal descending thoracic aorta is ectatic at 3.8 cm.. No significant aortic atherosclerosis. No acute pulmonary embolism. HEART: Moderate cardiomegaly. There is disproportionate right chamber dilatation, similar to prior study. Severe [place] coronary artery calcifications. 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 No significant pericardial effusion. LUNG, AIRWAYS, AND PLEURA: Small bilateral pleural effusions with adjacent atelectasis. No pneumothorax. Mild emphysema. Smooth interlobular septal thickening indicative of interstitial edema. Postsurgical changes and scarring at the left lung apex again noted. OSSEOUS STRUCTURES: No acute osseous abnormality. Chronic left proximal humeral fracture deformity is partially visualized in the field of view. Osteopenic bone. Scattered chronic rib fractures bilaterally are noted. CHEST WALL SOFT TISSUES: No discernible abnormality. UPPER ABDOMEN/OTHER: No acute abnormality. IMPRESSION: 1. No acute pulmonary embolism. 2. Pulmonary edema and small bilateral pleural effusions. 3. Moderate cardiomegaly with disproportionate dilatation of the right ventricle and atrium compared to the left heart chambers. 4. Emphysema. 5. Above-described postsurgical changes of the aorta, aortic valve, mitral valve, coronary arteries. MACRO: None. Signed by: Jens Ash 11/05/2023 1:53 PM Dictation workstation: [id number] Normal [facility] Comprehensive metabolic 2000 panelon 11-05-2023 Albumin BCP dye [Mass/Vol] 3.7 g/dL Normal 3.4-5.0 [facility] Comment on above: Performed By: #### 5 902-2 #### CASILLAS RAGHAV ([id number]) [facility] ([facility]) [address] [place] [address] ALP [Catalytic activity/Vol] 129 U/L Normal 33-136 [facility] Comment on above: Performed By: #### 5 902-2 #### VINNY AVILEZ ([id number]) [facility] ([facility]) [address] [place] [address] ALT With P-5'-P [Catalytic activity/Vol] 21 U/L Normal 10-52 [facility] Comment on above: Result Comment: Myla ents treated with Sulfasalazine may generate falsely decreased results for ALT. Performed By: #### 5 902-2 #### VINNY AVILEZ ([id number]) [facility] ([facility]) [address] [place] [address] Anion gap [Moles/Vol] 12 mmol/L Normal 10-20 [facility] Comment on above: Performed By: #### 5 902-2 #### VINNY AVILEZ ([id number]) [facility] ([facility]) [address] [place] [address] AST With P-5'-P [Catalytic activity/Vol] 43 U/L High 9-39 [facility] Comment on above: Performed By: #### 5 902-2 #### VINNY AVILEZ ([id number]) [facility] ([facility]) [address] [place] [address] Bilirubin [Mass/Vol] 1.0 mg/dL Normal 0.0-1.2 [facility] Comment on above: Performed By: #### 5 902-2 #### VINNY AVILEZ ([id number]) [facility] ([facility]) [address] [place] [address] Calcium [Mass/Vol] 8.7 mg/dL Normal 8.6-10.3 [facility] Comment on above: Performed By: #### 5 902-2 #### VINNY AVILEZ ([id number]) [facility] ([facility]) [address] [place] [address] Chloride [Moles/Vol] 105 mmol/L Normal 98-107 [facility] Comment on above: Performed By: #### 5 902-2 #### VINNY AVILEZ ([id number]) [facility] ([facility]) [address] [place] [address] 12943 CO2 [Moles/Vol] 24 mmol/L Normal 21-32 [facility] Comment on above: Performed By: #### 5 902-2 #### VINNY AVILEZ ([id number]) [facility] ([facility]) [address] [place] [address] 69609 Creatinine [Mass/Vol] 1.33 mg/dL High 0.50-1.30 [facility] Comment on above: Performed By: #### 5 902-2 #### VINNY AVILEZ ([id number]) [facility] ([facility]) [address] [place] [address] 80503 Glomerular filtration rate/1.73 sq M.predicted 54 mL/min/1.73m*2 Low >60 [facility] Comment on above: Result Comment: Calc ulations of estimated GFR are performed using the 2020 CKD-EPI Study Refit equation without the race variable for the IDMS-Traceable creatinine methods. https://jasn.asnjournals.org/content/early//ASN.399188 0129 Performed By: #### 5 902-2 #### VINNY AVILEZ ([id number]) [facility] ([facility]) [address] [place] [address] 50610 Glucose [Mass/Vol] 133 mg/dL High 74-99 [facility] Comment on above: Performed By: #### 5 902-2 #### VINNY AVILEZ ([id number]) [facility] ([facility]) [address] [place] [address] 73634 Potassium [Moles/Vol] 4.1 mmol/L Normal 3.5-5.3 [facility] Comment on above: Performed By: #### 5 902-2 #### VINNY AVILEZ ([id number]) [facility] ([facility]) [address] [place] [address] Protein [Mass/Vol] 6.5 g/dL Normal 6.4-8.2 [facility] Comment on above: Performed By: #### 5 902-2 #### VINNY AVILEZ ([id number]) [facility] ([facility]) [address] [place] [address] Sodium [Moles/Vol] 137 mmol/L Normal 136-145 [facility] Comment on above: Performed By: #### 5 902-2 #### VINNY AVILEZ ([id number]) [facility] ([facility]) [facility] [place] [address] Urea nitrogen [Mass/Vol] 34 mg/dL High 6-23 [facility] Comment on above: Performed By: #### 5 902-2 #### VINNY AVILEZ ([id number]) [facility] ([facility]) [address] [place] [address] 03071 ECG 12-LEADon 11-05-2023 ECG 12-LEAD Ventricular Rate 42 QRS Duration 86 Q-T Interval 488 QTC Calculation(Bazett) 407 R Hermitage -36 T Hermitage 79 QRS Count 7 Q Onset 219 T Offset 463 QTC Fredericia 433 Diagnosis Atrial fibrillation with slow ventricular response Left axis deviation Inferior infarct , age undetermined Anteroseptal infarct (cited on or before 15-MAY-2023) Abnormal ECG When compared with ECG of 05-NOV-2023 10:34, (unconfirmed) No significant change was found See ED provider note for full interpretation and clinical correlation Confirmed by Mady Viveros ([id number]) on 11/06/2023 10:36:00 AM Normal [facility] ECG 12-LEAD Ventricular Rate 51 QRS Duration 78 Q-T Interval 496 QTC Calculation(Bazett) 457 R Hermitage -35 T Hermitage 98 QRS Count 8 Q Onset 220 T Offset 468 QTC Fredericia 470 Diagnosis Atrial fibrillation with slow ventricular response Left axis deviation Anteroseptal infarct (cited on or before 15-MAY-2023) Abnormal ECG When compared with ECG of 15-MAY-2023 16:01, Non-specific change in ST segment in Anterior leads See ED provider note for full interpretation and clinical correlation Confirmed by Mady Viveros ([id number]) on 11/06/2023 10:35:28 AM Normal [facility] Fibrin D-dimer FEUon 024 Fibrin D-dimer FEU (PPP) [Mass/Vol] 1018 ng/mL FEU High <=500 [facility] Comment on above: Order Comment: The V TE Exclusion D-Dimer assay is reported in ng/mL Fibrinogen Equivalent Units (FEU).Per computer hardware engineer's instructions for use, a value of less than 500 ng/mL (FEU) may help to exclude DVT or PE in outpatients when the assay is used with a clinical pretest probability assessment.([facility] must utilize and document eCalc 'Wells Score Deep Vein Thrombosis Risk' for DVT exclusion only. Emergency Department should utilize Guidelines for Emergency Department Use of the VTE Exclusion D-Dimer and Clinical Pretest probability assessment model for DVT or PE exclusion.) Performed By: #### 5 902-2 #### VINNY AVILEZ ([id number]) [facility] ([facility]) [address] [place] [address] Magnesiumon 11-05-2023 Magnesium [Mass/Vol] 1.78 mg/dL Normal 1.60-2.40 [facility] Comment on above: Performed By: #### 5 902-2 #### VINNY AVILEZ ([id number]) [facility] ([facility]) [address] [place] [address] NT PRO BNPon 11-05-2023 Natriuretic peptide B (Bld) [Mass/Vol] 28784 pg/mL High 0-300 [facility] Comment on above: Order Comment: Pride Study Cut-offsRule In:< /= 50 Years >450 pg/mL51 Years - 75 Years >900 pg/mL76 Years - 99 Years >1800 pg/mLRule Out:All patients <300 pg/mL Performed By: #### 4 6932 #### LAB [address] [place], [place] [address] Darryn Hazel M.D. [id number] Natriuretic peptide B [Mass/ Vol]on 11-05-2023 Natriuretic peptide B (Bld) [Mass/Vol] 585 pg/mL High 0-99 [facility] Comment on above: Order Comment: <100 pg/mL - Heart failure [id number] pg/mL - Intermediate probability of acute heart failure exacerbation. Correlate with clinical context and patient history. >=300 pg/mL - Heart Failure likely. Correlate with clinical context and patient history.BNP testing is performed using different testing methodology at [facility] than at other [facility]. Direct result comparisons should only be made within the same method. Performed By: #### 5 902-2 #### VINNY AVILEZ ([id number]) [facility] ([facility]) [address] [place] [address] Troponin I.cardiac panelon 0 11-05-2023 Tropinin I.cardiac panel High sensitivity method 103 ng/L Critically high 0-20 [facility] Comment on above: Order Comment: Less than 99th percentile of normal range cutoff-Female and children under 18 years old <14 ng/L; Male <21 ng/L: NegativeRepeat testing should be performed if clinically indicated.Female and children under 18 years old 14-50 ng/L; Male 21-50 ng/L:Consistent with possible cardiac damage and possible increased clinicalrisk. Serial measurements may help to assess extent of myocardial damage.>50 ng/L: Consistent with cardiac damage, increased clinical risk andmyocardial infarction. Serial measurements may help assess extent ofmyocardial damage.NOTE: Children less than 1 year old may have higher baseline troponinlevels and results should be interpreted in conjunction with the overallclinical context.NOTE: Troponin I testing is performed using a differenttesting methodology at [facility] than [facility]. Direct result comparisons should onlybe made within the same method. Result Comment: Prev ious result verified on 11/05/2023 1139 on specimen/case [id number] called with component [facility] for procedure Troponin I, High Sensitivity, Initial with value 103 ng/L. Performed By: #### 5 902-2 #### VINNY AVILEZ ([id number]) [facility] ([facility]) [address] [place] [address] Tropinin I.cardiac panel High sensitivity method 103 ng/L Critically high 0-20 [facility] Comment on above: Order Comment: Less than 99th percentile of normal range cutoff-Female and children under 18 years old <14 ng/L; Male <21 ng/L: NegativeRepeat testing should be performed if clinically indicated.Female and children under 18 years old 14-50 ng/L; Male 21-50 ng/L:Consistent with possible cardiac damage and possible increased clinicalrisk. Serial measurements may help to assess extent of myocardial damage.>50 ng/L: Consistent with cardiac damage, increased clinical risk andmyocardial infarction. Serial measurements may help assess extent ofmyocardial damage.NOTE: Children less than 1 year old may have higher baseline troponinlevels and results should be interpreted in conjunction with the overallclinical context.NOTE: Troponin I testing is performed using a differenttesting methodology at [facility] than at [facility]. Direct result comparisons should onlybe made within the same method. Performed By: #### 5 902-2 #### CASILLAS RAGHAV ([id number]) [facility] ([facility]) [address] [place] [address] XR CHEST 1 VIEWon 11-05-2023 XR CHEST 1 VIEW Interpreted By: Tracey Niño, STUDY: XR CHEST 1 VIEW; 11/05/2023 11:03 am INDICATION: Signs/Symptoms:Chest Pain. COMPARISON: 05/15/2023 ACCESSION NUMBER(S): [id number] ORDERING CLINICIAN: TATYANA GOETZ FINDINGS: CARDIOMEDIASTINAL SILHOUETTE: The heart is enlarged. There are sternotomy wires from prior cardiac surgery. LUNGS: Lungs are clear. ABDOMEN: No remarkable upper abdominal findings. BONES: No acute osseous changes. IMPRESSION: No acute cardiopulmonary process. MACRO: None Signed by: Tracey Niño 11/05/2023 11:30 AM Dictation workstation: [id number] [facility] Office Visiton 06-23-2023 Follow-up visit [id number] Ada June 1945 M Date Provider Department Center 06/23/2023 [id number] WILLAMS [facility] None No family history on file Level of Service:75807 [place] POSTOP FOLLOW UP VISIT RELATED TO ORIGINAL PX Reason for Visit and Comments: Post-op [483] - po Progress Noteon 06-23-2023 Progress Note NEUROSURGERY and SPI NE POST-OP NOTE Patient Name: Ada June Patient : 1945 PCP: Jenelle Oconnell MD History of Present Ilness: Patient is post-op revision of right cranial wound with removal of cranial plate performed on 06/13/23. Patient was discharged with a 1 week course of doxycycline in which he states he has completed. He has noticed no redness swelling or drainage from his incision, denies any fevers or chills. Past Medical History: Past Medical History: Diagnosis Date Benign localized prostatic hyperplasia without lower urinary tract symptoms (LUTS) Chronic systolic (congestive) heart failure (HCC) Essential (primary) hypertension Gastro-esophageal reflux disease without esophagitis Hyperlipemia Insomnia, unspecified Iron deficiency anemia, unspecified Other malaise Traumatic subdural hemorrhage with loss of consciousness (HCC) Unspecified atrial fibrillation (HCC) Unspecified fall, initial encounter Unspecified fracture of shaft of humerus, left arm, initial encounter for closed fracture Past Surgical History: Past Surgical History: Procedure Laterality Date AORTIC VALVE REPLACEMENT CRANIAL SURGERY (HISTORICAL) N/A 06/13/2023 REVISION OF RIGHT POSTERIOR CRANIAL WOUND, REMOVAL OF CRANIAL PLATE Home Medications: Prior to Admission medications Medication Sig Start Date End Date Taking? Authorizing Provider acetaminophen (Tylenol) 500 MG tablet Take 1,000 mg by mouth every 8 hours as needed. Yes Historical Provider, aluminum & magnesium hydroxide-simethicone (Mylanta) 200-200-20 MG/5ML oral suspension Take 15 mL by mouth every 6 hours as needed. Yes Historical Provider, aluminum-magnesium hydroxide 200-200 MG/5ML suspension Take 30 mL by mouth Daily as needed for heartburn. Yes Historical Provider, apixaban (Eliquis) 5 MG tablet Take 5 mg by mouth 2 times daily. Last dose 06/06/[address] Willams's office Yes Historical Provider, Ascorbic Acid (vitamin C) 250 MG tablet Take 500 mg by mouth Daily with lunch. Yes Historical Provider, atorvastatin (Lipitor) 20 MG tablet Take 20 mg by mouth Nightly. Yes Historical Provider, Cholecalciferol (DIALYVITE VITAMIN D 5000 PO) Take 1 tablet by mouth Daily with lunch. Yes Historical Provider, doxycycline (Vibramycin) 100 MG capsule Take 1 capsule (100 mg) by mouth 2 times daily for 10 days. Take with at least 8 ounces (large glass) of water, do not lie down for 30 minutes after 06/13/23 06/23/23 Yes OTILIA Carroll CNP Ferrex 150 Forte 150-0.025-1 MG capsule Take 1 capsule by mouth Daily with lunch. 05/24/23 Yes Historical Provider, furosemide (Lasix) 40 MG tablet Take 40 mg by mouth in the morning and 40 mg in the evening. 05/21/21 05/17/24 Yes Historical Provider, hydrALAZINE (Apresoline) 50 MG tablet Take 50 mg by mouth in the morning and 50 mg at noon and 50 mg in the evening. Yes Historical Provider, Melatonin 3 MG capsule Take 3 mg by mouth Nightly. Yes Historical Provider, ynmgnjff-yvntgtapim-ulx ymyxin (Polysporin) ophthalmic ointment Daily as needed. Yes Historical Provider, omeprazole (PriLOSEC) [address] capsule Take 20 mg by mouth Nightly. Do not crush or chew. Yes Historical Provider, senna-docusate (Kristyn-Colace) 8.6-50 MG tablet Take 1 tablet by mouth 2 times daily as needed for constipation. Yes Historical Provider, spironolactone (Aldactone) 25 MG tablet Take 25 mg by mouth Nightly. Yes Historical Provider, amLODIPine (Norvasc) 10 MG tablet Take 1 tablet (10 mg) by mouth daily. Patient taking differently: Take 10 mg by mouth Nightly. 01/15/23 06/13/23 Katya Oliver PA-C oxyCODONE-acetaminophen (Percocet) 5-325 MG tablet Take 1 tablet by mouth every 6 hours as needed for severe pain (7-10) (pain) for up to 5 days. 06/13/23 06/18/23 OTILIA Carroll CNP Allergies: Patient has no known allergies. Social History: TOBACCO: reports that he quit smoking about 15 years ago. His smoking use included cigarettes. He does not have any smokeless tobacco history on file. ETOH: reports that he does not currently use alcohol. RECREATIONAL DRUG USE: Social History Substance and Sexual Activity Drug Use Not Currently Family History: No family history on file. Review of Systems: Review of Systems Constitutional: Negative. HENT: Negative. Eyes: Negative. Respiratory: Negative. Cardiovascular: Negative. Gastrointestinal: Negative. Endocrine: Negative. Genitourinary: Negative. Musculoskeletal: Negative. Skin: Negative. Neurological: Negative. Psychiatric/Behavioral: Negative. Physical Examination: Vitals: 06/23/23 0846 BP: (!) 179/66 Pulse: 79 Physical Exam Constitutional: Appearance: Normal appearance. HENT: Head: Normocephalic. Eyes: Extraocular Movements: Extraocular movements intact. Pupils: Pupils are equal, round, and reactive to light. Cardiovascular: Rate and R (more content not included)... Normal [facility] 36on 06-20-2023 36 Spoke with pt's son. Pt is doing well. Has PO appt Friday. Normal [facility] ABO and Rh group Confirm Nom (Bld)on 06-13-2023 ABO group Nom (Bld) A [facility] [employer] D Ag Ql (RBC) Positive [facility] BLOOD TYPE AND SCREEN GELon 06-13-2023 ABO GROUPING A Normal [facility] Comment on above: Performed By: #### L AB15, LAB67, [id number] #### Web Retailer: SHARDA CAM ([phone]) [address] RH TYPE IN BLOOD Positive Normal [facility] Comment on above: Performed By: #### L AB15, LAB67, [id number] #### Web Retailer: SHARDA CAM ([id number]) [address] Blood type and Crossmatch pa nhung (Bld)on 06-13-2023 ABO group Nom (Bld) A [facility] Blood group antibody screen GEL Ql Negative [facility] [employer] D Ag Ql (RBC) Positive [facility] CULTURE ANAEROBICon 06-13-19 24 CULTURE ANAEROBIC ANAEROBIC CULTURE Reference No growth at 5 days [ S = SUSCEPTIBLE R = RESISTANT I = INTERMEDIATE S-DD = Susceptible-dose dependent NS = Non-susceptible NO = No Interpretation ] Comment on above: Order Comment: Pre-o p diagnosis:Traumatic subdural hemorrhage with loss of consciousness status unknown, initial encounter ([facility]) [S06.5XAA] Performed By: #### L AB15, LAB67, [id number] #### Web Retailer: SHARDA CAM ([phone]) [address] CULTURE, AEROBIC BACTERIA WI TH GRAM STAINon 06-13-2023 CULTURE, AEROBIC BACTERIA WITH GRAM STAIN CULTURE (A) Reference STAPHYLOCOCCUS AUREUS Moderate Staphylococcus aureus (A) GRAM STAIN RESULT (A) Reference (A) Moderate Polymorphonuclear leukocytes per low power field Moderate Gram positive cocci Organism: STAPHYLOCOCCUS AUREUS Antibiotic DOUG Interpretation Status Clindamycin 0.25 ug/ml S F Gentamicin <=0.5 ug/ml S F Oxacillin 0.5 ug/ml S F Trimethoprim / Sulfamethoxazole <=10 ug/ml S F Vancomycin <=0.5 ug/ml S F [ S = SUSCEPTIBLE R = RESISTANT I = INTERMEDIATE S-DD = Susceptible-dose dependent NS = Non-susceptible NO = No Interpretation ] Normal [facility] Comment on above: Order Comment: Pre-o p diagnosis: Traumatic subdural hemorrhage with loss of consciousness status unknown, initial encounter ([facility]) [S06.5XAA] Performed By: #### L AB897 #### Web Retailer: SHARDA CAM ([id number]) [address] Nursing Noteon 06-13-2023 Nursing Note Pt has ambulated, voided, and has been given discharge instructions with son at bedside. All questions have been answered. Pt is ready for discharge Op Noteon 06-13-2023 Op Note OPERATIVE NOTE Patient Name: Ada June : 1945 DATE OF PROCEDURE: 06/13/2023 SURGEON: Ada Willams MD ACOUSTICAL LOGGING ENGINEER: Sonia Garces CNP PREOPERATIVE DIAGNOSES: Infected R audie hole incision POSTOPERATIVE DIAGNOSES: Same PROCEDURE: I&D of right posterior bur hole incision, with removal of bur hole cover with primary closure ANESTHESIA: General ESTIMATED BLOOD LOSS: Minimal INDICATION FOR PROCEDURE: Mr. June is a 77-year-old gentleman who underwent a bilateral bur hole procedure for subdural hematomas sometime ago. He presented to the neurosurgical office several months ago with an exposed bur hole cover on the right. Risks and benefits of removal of the plate were discussed with him and his family, they eventually decided to have it removed. DESCRIPTION OF PROCEDURE: Patient was brought to the op room general endotracheal esthesia was induced. The right side of his head and previous and bone marked which shaved appropriately he was prepped and draped in the normal sterile fashion. After proper timeout identify the patient, the site of surgery type surgery the incision was fully opened and careful dissection performed to expose the bur hole cover the cranial remover set was used to remove the screws and this allowed the bur hole cover to be removed. We saw several small areas of purulence that were thoroughly irrigated out. A 15 blade was then used to debride the skin edges and then 2-0 Vicryl was used to close the galea followed by oswaldo on the skin. Sterile dressing was placed. He was taken back to recovery room to be discharged home. There is no neurosurgical resident available to assist the case, the nurse practitioner assisted to provide suctionretraction assistance with opening and closing allow the case to be performed safely. 36on 06-12-2023 36 Per Homer at pre-admission testing, patient has a DNR comfort care. Progress Noteon 06-12-2023 Progress Note Chart review complet ed in order to place pre operative orders for anesthesia. EK01/06/23 ECG 12-LEAD 01/08/2023 12:53 PM (Final) Impression Atrial fibrillation Borderline left axis deviation Anterior infarct, old Nonspecific T abnormalities, lateral leads Electronically Signed On 01-08-2023 12:53:32 EST by Shayla Mari Signed by: Shayla Mair MD on 01/08/2023 12:53 PM ECHO and EF: No results found for this or any previous visit. Labs: Lab Results Component Value Date WBC 8.9 01/09/2023 HGB 10.9 (L) 01/09/2023 HCT 32.1 (L) 01/09/2023 MCV 87.2 01/09/2023 PLT 174 01/09/2023 Lab Results Component Value Date NA 132 (L) 01/09/2023 K 4.0 01/09/2023 CL 100 01/09/2023 CO2 24 01/09/2023 BUN 29 (H) 01/09/2023 CREATININE 0.78 01/09/2023 GLUCOSE 104 (H) 01/09/2023 CALCIUM 8.7 01/09/2023 Past Medical History: Past Medical History: Diagnosis Date Benign localized prostatic hyperplasia without lower urinary tract symptoms (LUTS) Chronic systolic (congestive) heart failure (HCC) Essential (primary) hypertension Gastro-esophageal reflux disease without esophagitis Hyperlipemia Insomnia, unspecified Iron deficiency anemia, unspecified Other malaise Traumatic subdural hemorrhage with loss of consciousness (HCC) Unspecified atrial fibrillation (HCC) Unspecified fall, initial encounter Unspecified fracture of shaft of humerus, left arm, initial encounter for closed fracture Past Surgical History: No past surgical history on file. Medications Prior to Admission: Prior to Admission medications Medication Sig Start Date End Date Taking? Authorizing Provider acetaminophen (Tylenol) 500 MG tablet Take 1,000 mg by mouth every 8 hours as needed. Historical Provider, aluminum & magnesium hydroxide-simethicone (Mylanta) 200-200-20 MG/5ML oral suspension Take 15 mL by mouth every 6 hours as needed. Historical Provider, aluminum-magnesium hydroxide 200-200 MG/5ML suspension Take 30 mL by mouth Daily as needed for heartburn. Historical Provider, amLODIPine (Norvasc) 10 MG tablet Take 1 tablet (10 mg) by mouth daily. Patient taking differently: Take 10 mg by mouth Nightly. 01/15/23 02/14/23 Katya Oliver PA-C apixaban (Eliquis) 5 MG tablet Take 5 mg by mouth 2 times daily. Last dose 06/06/[address] Willams's office Historical Provider, Ascorbic Acid (vitamin C) 250 MG tablet Take 500 mg by mouth Daily with lunch. Historical Provider, atorvastatin (Lipitor) 20 MG tablet Take 20 mg by mouth Nightly. Historical Provider, Cholecalciferol (DIALYVITE VITAMIN D 5000 PO) Take 1 tablet by mouth Daily with lunch. Historical Provider, Ferrex 150 Forte 150-0.025-1 MG capsule Take 1 capsule by mouth Daily with lunch. 05/24/23 Historical Provider, furosemide (Lasix) 40 MG tablet Take 40 mg by mouth in the morning and 40 mg in the evening. 05/21/21 05/17/24 Historical Provider, hydrALAZINE (Apresoline) 50 MG tablet Take 50 mg by mouth in the morning and 50 mg at noon and 50 mg in the evening. Historical Provider, Melatonin 3 MG capsule Take 3 mg by mouth Nightly. Historical Provider, ogluzteb-fmwoiyuuym-rul ymyxin (Polysporin) ophthalmic ointment Daily as needed. Historical Provider, omeprazole (PriLOSEC) [address] capsule Take 20 mg by mouth Nightly. Do not crush or chew. Historical Provider, senna-docusate (Kristyn-Colace) 8.6-50 MG tablet Take 1 tablet by mouth 2 times daily as needed for constipation. Historical Provider, spironolactone (Aldactone) 25 MG tablet Take 25 mg by mouth Nightly. Historical Provider, amLODIPine (Norvasc) 5 MG tablet Take 5 mg by mouth daily. 06/11/23 Historical Provider, LUTEIN PO Take 25 mg by mouth. 06/11/23 Historical Provider, QUEtiapine (SEROquel) 25 MG tablet Take 0.5 tablets (12.5 mg) by mouth 2 times daily as needed (first line for agitation) for up to 10 days. 01/15/23 06/11/23 Katya Oliver PA-C QUEtiapine (SEROquel) 50 MG tablet Take 1 tablet (50 mg) by mouth Nightly. 01/15/23 06/11/23 Katya Oliver PA-C tamsulosin (Flomax) 0.4 MG 24 hr capsule Take 1 capsule (0.4 mg) by mouth daily. Patient not taking: Reported on 03/31/2023 01/15/23 06/11/23 Katya Oliver PA-C warfarin (Coumadin) 4 MG tablet 5 mg. 08/30/21 06/11/23 Historical Provider, Allergies: Patient has no known allergies. Social History: TOBACCO: reports that he quit smoking about 15 years ago. His smoking use included cigarettes. He does not have any smokeless tobacco history on file. ETOH: reports that he does not currently use alcohol. Social History Substance and Sexual Activity Drug Use Not Currently Family History: No family history on file. [id number] 06-06-2023 [id number] Secure chat to Radha Garces at surgeon office re: Eliquis holding orders. Order received to hold Eliquis starting tomorrow 06/06. Kylie HURT at facility called and instructed. She verbalized understanding. [id number] Spoke with Smiley, patients nurse at [facility], where patient resides, regarding needing patients medical information prior to surgery. Smiley stated the PAT fax number is not working. Gave Smiley the SDS OR Control desk fax number as well. Smiley stated she would try the PAT fax number again as well as the [facility] OR Control Desk fax number. Awaiting patients medical information. [phone] Message left on [facility]'s nurse voicemail requesting that they fax patient's info to DOMINIQUE jenny. Originally requested via fax on 06/06/2023. Nursing Noteon 06-06-2023 Nursing Note Verified with Luh at [facility] that she received pre-surgical eduction. Questions answered. Nursing Note Message left on Dr. Randolph's surgery scheduling line notifying the office that the patient has a DNRCC in place. Copy placed on surgical chart. PREPROCINSon 06-06-2023 PREPROCINS Medication List Accurate as of June 06, 2023 11:59 PM. Always use your most recent med list. acetaminophen 500 MG tablet Commonly known as: Tylenol Medication Adjustments for Surgery: Take morning of surgery Notes to patient: IF NEEDED aluminum & magnesium hydroxide-simethicone 200-200-20 MG/5ML oral suspension Commonly known as: Mylanta Medication Adjustments for Surgery: Hold morning of surgery aluminum-magnesium hydroxide 200-200 MG/5ML suspension Medication Adjustments for Surgery: Hold morning of surgery amLODIPine 10 MG tablet Commonly known as: Norvasc Take 1 tablet (10 mg) by mouth daily. Medication Adjustments for Surgery: Take night before surgery atorvastatin 20 MG tablet Commonly known as: Lipitor Medication Adjustments for Surgery: Take night before surgery DIALYVITE VITAMIN D 5000 PO Medication Adjustments for Surgery: Hold morning of surgery Eliquis 5 MG tablet Generic drug: apixaban Medication Adjustments for Surgery: Other (Comment) Notes to patient: LAST DOSE 06/06/[address] WILLAMS'S OFFICE Ferrex 150 Forte 150-0.025-1 MG capsule Generic drug: Iron Polysacch Rayur-D63-BM Medication Adjustments for Surgery: Hold morning of surgery furosemide 40 MG tablet Commonly known as: Lasix Medication Adjustments for Surgery: Hold morning of surgery hydrALAZINE 50 MG tablet Commonly known as: Apresoline Medication Adjustments for Surgery: Take morning of surgery Melatonin 3 MG capsule Medication Adjustments for Surgery: Take night before surgery vjtxzopg-usjmtxxtew-gky ymyxin ophthalmic ointment Commonly known as: Polysporin Medication Adjustments for Surgery: Hold morning of surgery omeprazole [address] capsule Commonly known as: PriLOSEC Medication Adjustments for Surgery: Take night before surgery senna-docusate 8.6-50 MG tablet Commonly known as: Kristyn-Colace Medication Adjustments for Surgery: Hold morning of surgery spironolactone 25 MG tablet Commonly known as: Aldactone Medication Adjustments for Surgery: Take night before surgery vitamin C 250 MG tablet Medication Adjustments for Surgery: Hold morning of surgery The medication bridging plan has been discussed with the surgeon and the patient has been informed of the plan. Additional Instructions: You may take your prescription pain medication. You may take Tylenol for pain. NO Motrin, ibuprofen or Advil for 24 hours prior to surgery or longer if instructed by your surgeon. NO Aleve or Naprosyn for 5 days prior to surgery or longer if instructed by your surgeon. LAST DOSE OF ELIQUIS 06/06/2023 Follow any instructions given to you by Dr. WILLAMS Shower with an antibacterial soap such as Dial or Safeguard or shower kit provided to you before coming to the hospital. No makeup, lotion, powder, deodorant or body spays. No hair products. Remove all jewelry and leave it at home. Wear loose comfortable clothing to go home in. You may brush your teeth morning of surgery. Do not wear contacts day of surgery. No marijuana (THC), smoking or alcohol for 24 hours prior to surgery. Please arrange for a responsible adult to drive you home after your surgery and that there is a responsible adult with you for 24 hours post discharge. If you have specific questions, please call your surgeon. You will receive a call the day before your surgery to verify your arrival time and date. You will be asked to arrive at least two hours prior to your scheduled surgery time. Please bring your [facility] Surgical folder and medication list with you day of surgery. We encourage you to write down any questions you may have for the surgeon, anesthesiologist, or other members of the surgical team and bring it with you the day of surgery. Please bring photo ID and insurance information. Normal [facility] Basic metabolic 2000 panelon 05-18-2023 Anion gap [Moles/Vol] 12 mmol/L 10 - 2 0 mmol/L [facility] Calcium [Mass/Vol] 8.3 mg/dL Low 8.6 - 10. 3 mg/dL [facility] Chloride [Moles/Vol] 99 mmol/L 98 - 10 7 mmol/L [facility] CO2 [Moles/Vol] 27 mmol/L 21 - 32 mmol/L [facility] Creatinine [Mass/Vol] 0.79 mg/dL 0.50 - 1.30 mg/dL [facility] GFR/1.73 sq M.predicted among non-blacks MDRD (S/P/Bld) [Vol rate/Area] 90 mL/min/{1.73_m2} - PINF [facility] Comment on above: Calculations of fabiano mated GFR are performed using the 2020 CKD-EPI Study Refit equation without the race variable for the IDMS-Traceable creatinine methods. https://jasn.asnjournals.org/content//ASN.086055 8255 Glucose [Mass/Vol] 92 mg/dL 74 - 99 mg/dL [facility] Interpretation and review of laboratory results Abnormal [facility] Potassium [Moles/Vol] 3.9 mmol/L 3.5 - 5.3 mmol/L [facility] Sodium [Moles/Vol] 134 mmol/L Low 136 - 145 mmol/L [facility] Urea nitrogen [Mass/Vol] 29 mg/dL High 6 - 23 mg/dL [facility] Anion gap [Moles/Vol] 12 mmol/L Normal 10-20 [facility] Comment on above: Performed By: #### 5 902-2 #### CASILLAS RAGHAV ([id number]) [facility] ([facility]) [facility] [facility] [place] [address] Calcium [Mass/Vol] 8.3 mg/dL Low 8.6-10.3 [facility] Comment on above: Performed By: #### 5 902-2 #### VINNY AVILEZ ([id number]) [facility] ([facility]) [address] [place] [address] 54562 Chloride [Moles/Vol] 99 mmol/L Normal 98-107 [facility] Comment on above: Performed By: #### 5 902-2 #### VINNY AVILEZ ([id number]) [facility] ([facility]) [address] [place] [address] 43840 CO2 [Moles/Vol] 27 mmol/L Normal 21-32 [facility] Comment on above: Performed By: #### 5 902-2 #### VINNY AVILEZ ([id number]) [facility] ([facility]) [address] [place] [address] 08149 Creatinine [Mass/Vol] 0.79 mg/dL Normal 0.50-1.30 [facility] Comment on above: Performed By: #### 5 902-2 #### VINNY AVILEZ ([id number]) [facility] ([facility]) [address] [place] [address] 24103 Glomerular filtration rate/1.73 sq M.predicted 90 mL/min/1.73m*2 Normal >60 [facility] Comment on above: Result Comment: Calc ulations of estimated GFR are performed using the 2020 CKD-EPI Study Refit equation without the race variable for the IDMS-Traceable creatinine methods. https://jasn.asnjournals.org/content//ASN.258861 9462 Performed By: #### 5 902-2 #### VINNY AVILEZ ([id number]) [facility] ([facility]) [address] [place] [address] 19431 Glucose [Mass/Vol] 92 mg/dL Normal 74-99 [facility] Comment on above: Performed By: #### 5 902-2 #### VINNY AVILEZ ([id number]) [facility] ([facility]) [address] [place] [address] 29661 Potassium [Moles/Vol] 3.9 mmol/L Normal 3.5-5.3 [facility] Comment on above: Performed By: #### 5 902-2 #### VINNY AVILEZ ([id number]) [facility] ([facility]) [address] [place], [place] [address] Sodium [Moles/Vol] 134 mmol/L Low 136-145 [facility] Comment on above: Performed By: #### 5 902-2 #### VINNY AVILEZ ([id number]) [facility] ([facility]) [address] [place] [address] Urea nitrogen [Mass/Vol] 29 mg/dL High 6-23 [facility] Comment on above: Performed By: #### 5 902-2 #### VINNY AVILEZ ([id number]) [facility] ([facility]) [address] [place] [address] Lavender Topon 05-18-2023 Extra Tube Hold for add-ons. [facility] Comment on above: Auto resulted. [facility] CBC panel Auto (Bld)on 05-16 Erythrocyte distribution width (RBC) [Ratio] 15.6 % High 11.5-14.5 [facility] Comment on above: Performed By: #### 4 8065-7 #### VINNY AVILEZ ([id number]) [facility] ([facility]) [address] [place], [place] [address] Hematocrit (Bld) [Volume fraction] 30.6 % Low 41.0-52.0 [facility] Comment on above: Performed By: #### 4 8065-7 #### VINNY AVILEZ ([id number]) [facility] ([facility]) [address] [place], [place] [address] Hemoglobin (Bld) [Mass/Vol] 9.5 g/dL Low 13.5-17.5 [facility] Comment on above: Performed By: #### 4 8065-7 #### VINNY AVILEZ ([id number]) [facility] ([facility]) [facility] [place] [address] Interpretation and review of laboratory results Abnormal [facility] MCH (RBC) [Entitic mass] 27.7 pg Normal 26.0-34.0 [facility] Comment on above: Performed By: #### 4 8065-7 #### VINNY AVILEZ ([id number]) [facility] ([facility]) [address] [place] [address] 83432 MCHC (RBC) [Mass/Vol] 31.0 g/dL Low 32.0-36.[address] [facility] Comment on above: Performed By: #### 4 8065-7 #### VINNY AVILEZ ([id number]) [facility] ([facility]) [address] [place] [address] MCV (RBC) [Entitic vol] 89 fL Normal 80-100 [facility] Comment on above: Performed By: #### 4 8065-7 #### VINNY AVILEZ ([id number]) [facility] ([facility]) [address] [place] [address] 04004 Nucleated RBC/100 WBC (Bld) [Ratio] 0.0 % [facility] Platelets (Bld) [#/Vol] 281 10*3/uL [facility] RBC (Bld) [#/Vol] 3.43 10*6/uL Low [facility] WBC (Bld) [#/Vol] 9.5 10*3/uL [facility] Nucleated RBC/100 WBC (Bld) [Ratio] 0.0 /100 WBCs Normal 0.0-0.0 [facility] Comment on above: Performed By: #### 4 8065-7 #### VINNY AVILEZ ([id number]) [facility] ([facility]) [address] [place] [address] 69894 Platelets (Bld) [#/Vol] 281 x10*3/uL Normal 150-450 [facility] Comment on above: Performed By: #### 4 8065-7 #### VINNY AVILEZ ([id number]) [facility] ([facility]) [address] [place] [address] RBC (Bld) [#/Vol] 3.43 x10*6/uL Low 4.50-5.90 [facility] Comment on above: Performed By: #### 4 8065-7 #### VINNY AVILEZ ([id number]) [facility] ([facility]) [address] [place] [address] WBC (Bld) [#/Vol] 9.5 x10*3/uL Normal 4.4-11.3 [facility] Comment on above: Performed By: #### 4 8065-7 #### VINNY AVILEZ ([id number]) [facility] ([facility]) [address] [place] [address] Comprehensive metabolic 2000 panelon 05-17-2023 Albumin BCP dye [Mass/Vol] 3.1 g/dL Low 3.4-5.0 [facility] Comment on above: Performed By: #### 4 8065-7 #### VINNY AVILEZ ([id number]) [facility] ([facility]) [address] [place], [place] [address] ALP [Catalytic activity/Vol] 95 U/L Normal 33-136 [facility] Comment on above: Performed By: #### 4 8065-7 #### VINNY AVILEZ ([id number]) [facility] ([facility]) [address] [place] [address] ALT With P-5'-P [Catalytic activity/Vol] 13 U/L Normal 10-52 [facility] Comment on above: Patients treated wit h Sulfasalazine may generate falsely decreased results for ALT. Result Comment: Myla ents treated with Sulfasalazine may generate falsely decreased results for ALT. Performed By: #### 4 8065-7 #### VINNY AVILEZ ([id number]) [facility] ([facility]) [address] [place] [address] 48475 Anion gap [Moles/Vol] 13 mmol/L Normal 10-[address] [facility] Comment on above: Performed By: #### 4 8065-7 #### VINNY AVILEZ ([id number]) [facility] ([facility]) [address] [place] [address] AST With P-5'-P [Catalytic activity/Vol] 10 U/L Normal 9-39 [facility] Comment on above: Performed By: #### 4 8065-7 #### VINNY AVILEZ ([id number]) [facility] ([facility]) [address] [place] [address] Bilirubin [Mass/Vol] 1.2 mg/dL Normal 0.0-1.2 [facility] Comment on above: Performed By: #### 4 8065-7 #### VINNY AVILEZ ([id number]) [facility] ([facility]) [address] [place] [address] 57959 Calcium [Mass/Vol] 8.5 mg/dL Low 8.6-10.3 [facility] Comment on above: Performed By: #### 4 8065-7 #### VINNY AVILEZ ([id number]) [facility] ([facility]) [address] [place] [address] Chloride [Moles/Vol] 103 mmol/L Normal 98-107 [facility] Comment on above: Performed By: #### 4 8065-7 #### VINNY AVILEZ ([id number]) [facility] ([facility]) [address] [place] [address] CO2 [Moles/Vol] 25 mmol/L Normal 21-32 [facility] Comment on above: Performed By: #### 4 8065-7 #### VINNY AVILEZ ([id number]) [facility] ([facility]) [address] [place] [address] Creatinine [Mass/Vol] 0.83 mg/dL Normal 0.50-1.[address] [facility] Comment on above: Performed By: #### 4 8065-7 #### VINYN AVILEZ ([id number]) [facility] ([facility]) [address] [place] [address] GFR/1.73 sq M.predicted among non-blacks MDRD (S/P/Bld) [Vol rate/Area] 89 mL/min/{1.73_m2} - PINF [facility] Comment on above: Calculations of fabiano mated GFR are performed using the 2020 CKD-EPI Study Refit equation without the race variable for the IDMS-Traceable creatinine methods. https://jasn.asnjournals.org/content/early/ASN.074017 1184 Glucose [Mass/Vol] 98 mg/dL Normal 74-99 [facility] Comment on above: Performed By: #### 4 8065-7 #### VINNY AVILEZ ([id number]) [facility] ([facility]) [address] [place] [address] Interpretation and review of laboratory results Abnormal [facility] Potassium [Moles/Vol] 4.1 mmol/L Normal 3.5-5.[address] [facility] Comment on above: Performed By: #### 4 8065-7 #### VINNY AVILEZ ([id number]) [facility] ([facility]) [address] [place] [address] Protein [Mass/Vol] 5.8 g/dL Low 6.4-8.2 [facility] Comment on above: Performed By: #### 4 8065-7 #### VINNY AVILEZ ([id number]) [facility] ([facility]) [address] [place] [address] 53414 Sodium [Moles/Vol] 137 mmol/L Normal 136-145 [facility] Comment on above: Performed By: #### 4 8065-7 #### VINNY AVILEZ ([id number]) [facility] ([facility]) [address] [place] [address] 28512 Urea nitrogen [Mass/Vol] 27 mg/dL High 6-23 [facility] Comment on above: Performed By: #### 4 8065-7 #### VINNY AVILEZ ([id number]) [facility] ([facility]) [address] [place] [address] Glomerular filtration rate/1.73 sq M.predicted 89 mL/min/1.73m*2 Normal >60 [facility] Comment on above: Result Comment: Calc ulations of estimated GFR are performed using the 2020 CKD-EPI Study Refit equation without the race variable for the IDMS-Traceable creatinine methods. https://jasn.asnjournals.org/content/early/ASN.513317 0601 Performed By: #### 4 8065-7 #### CASILLAS RAGHAV ([id number]) [facility] ([facility]) [address] [place] [address] No Panel Informationon 05-16 Q Onset 217 ms [facility] Work Phone: QRS Count 11 beats [facility] Work Phone: QRS Duration 92 ms [facility] Work Phone: QT Interval 400 ms [facility] Work Phone: QTC Calculation(Bazett) [address] [facility] Work Phone: QTC Fredericia [address] [facility] Work Phone: R [place] -37 degrees [facility] Work Phone: T [place] 116 degrees [facility] Work Phone: T Offset 417 ms [facility] Work Phone: Ventricular Rate 65 BPM [facility] Work Phone: Atrial fibrillation with premature ventricular or aberrantly conducted complexes Left axis deviation Inferior infarct (cited on or before 15-MAY-2023) Anteroseptal infarct (cited on or before 15-MAY-2023) Abnormal ECG When compared with ECG of 15-MAY-2023 16:00, (unconfirmed) Anterior leads See ED provider note for full interpretation and clinical correlation Confirmed by Az Liu ([id number]) on 05/17/2023 5:44:02 PM Az Cali , DO - 05/17/2023 Atrial fibrillation with premature ventricular or aberrantly conducted complexes Left axis deviation Inferior infarct (cited on or before 15-MAY-2023) Anteroseptal infarct (cited on or before 15-MAY-2023) Abnormal ECG When compared with ECG of 15-MAY-2023 16:00, (unconfirmed) Anterior leads See ED provider note for full interpretation and clinical correlation Confirmed by Az Liu ([id number]) on 05/17/2023 5:44:02 PM [facility] Work Phone: [facility] Work Phone: Bacteria identifiedon 2023 Bacteria identified Respiratory culture Nom (Unsp spec) Test: Respiratory Culture/Smear Specimen Source: SPUTUM Specimen Type: Fluid Specimen Date: 05/16/2023 7:43 AM Result Date: 05/16/2023 11:49 PM Result Status: Final result Abnormal: Yes Resulting Lab: [facility] [id number] [place] [address] CULTURE Culture not performed. See Gram stain findings. Recollect if clinically indicated. (Abnormal) STAIN Gram stain indicates specimen contains significant salivary contamination. Abnormal [facility] Comment on above: Performed By: #### 4 8065-7 #### VINNY AVILEZ ([id number]) [facility] ([facility]) [address] [place] [address] 00492 Bacteria identified Respirat ory culture Nom (Unsp spec)Ordered By: Ez Doherty on 05-16-2023 Interpretation and review of laboratory results Abnormal [facility] Microscopic observation Gram stain Nom (Unsp spec) Gram stain indicates specimen contains significant salivary contamination. Abnormal [facility] Basic metabolic 2000 panelon 05-16-2023 Anion gap [Moles/Vol] 13 mmol/L Normal 10-[address] [facility] Comment on above: Performed By: #### 2 4321-2 ####VINNY AVILEZ ([id number])[facility] ([facility])[address] [place] [address] Calcium [Mass/Vol] 8.6 mg/dL Normal 8.6-10.3 [facility] Comment on above: Performed By: #### 2 4321-2 ####VINNY AVILEZ ([id number])[facility] ([facility])[address] [place], [place] [address] Chloride [Moles/Vol] 106 mmol/L Normal 98-107 [facility] Comment on above: Performed By: #### 2 4321-2 ####VINNY AVILEZ ([id number])[facility] ([facility])[address] [place], [place] [address] CO2 [Moles/Vol] 23 mmol/L Normal 21-32 [facility] Comment on above: Performed By: #### 2 4321-2 ####VINNY AVILEZ ([id number])[facility] ([facility])[address] [place] [address] Creatinine [Mass/Vol] 0.69 mg/dL Normal 0.50-1.[address] [facility] Comment on above: Performed By: #### 2 4321-2 ####VNINY AVILEZ ([id number])[facility] ([facility])[address] [place] [address] eGFR - PINF [facility] Comment on above: Calculations of fabiano mated GFR are performed using the 2020 CKD-EPI Study Refit equation without the race variable for the IDMS-Traceable creatinine methods. https://jasn.asnjournals.org/content/early/ASN.857948 2149 Glucose [Mass/Vol] 114 mg/dL High 74-99 [facility] Comment on above: Performed By: #### 2 4321-2 ####VINNY AVILEZ ([id number])[facility] ([facility])[address] [place], [place] [address] Interpretation and review of laboratory results Abnormal [facility] Potassium [Moles/Vol] 4.0 mmol/L Normal 3.5-5.[address] [facility] Comment on above: Performed By: #### 2 4321-2 ####VINNY AVILEZ ([id number])[facility] ([facility])[address] [place], [place] [address] Sodium [Moles/Vol] 138 mmol/L Normal 136-145 [facility] Comment on above: Performed By: #### 2 4321-2 ####VINNY AVILEZ ([id number])[facility] ([facility])[address] [place] [address] Urea nitrogen [Mass/Vol] 17 mg/dL Normal 6-23 [facility] Comment on above: Performed By: #### 2 4321-2 ####VINNY AVILEZ ([id number])[facility] ([facility])[address] [place] [address] GFR/1.73 sq M.predicted MDRD (S/P/Bld) [Vol rate/Area] mL/min/{1.73_m2} Normal >60 [facility] Comment on above: Result Comment: Calc ulations of estimated GFR are performed using the 2020 CKD-EPI Study Refit equation without the race variable for the IDMS-Traceable creatinine methods. https://jasn.asnjournals.org/content/early//ASN.176490 2291 Performed By: #### 2 4321-2 ####VINNY AVILEZ ([id number])[facility] ([facility])[address] [place], [place] [address] Cell count panel (Body fld)O rdered By: Mary Jane Acuña on 05-16-2023 Clarity (Body fld) Hazy Abnormal Clear [facility] Color (Body fld) Yellow Colorless, Straw, Yellow [facility] Interpretation and review of laboratory results Abnormal [facility] RBC Auto (Body fld) [#/Vol] 1000 /uL 0 /uL [facility] WBC (Body fld) [#/Vol] 0.277 10*3/uL See Comment [facility] Body Fluid cell coun t reference ranges have not been established by [facility]. Based on published references. [facility] Cell count panel (Body fld)o n 05-16-2023 Clarity (Body fld) Hazy Abnormal Clear [facility] Comment on above: Order Comment: The D -Dimer assay is reported in ng/mL Fibrinogen Equivalent Units (FEU). The results of this assay should NOT be used for the exclusion of Deep Vein Thrombosis and/or Pulmonary Embolism. Performed By: #### 4 8065-7 #### VINNY AVILEZ ([id number]) [facility] ([facility]) [address] [place] [address] 42043 Color (Body fld) Yellow Normal Colorless, Straw, Yellow [facility] Comment on above: Order Comment: The D -Dimer assay is reported in ng/mL Fibrinogen Equivalent Units (FEU). The results of this assay should NOT be used for the exclusion of Deep Vein Thrombosis and/or Pulmonary Embolism. Performed By: #### 4 8065-7 #### VINNY AVILEZ ([id number]) [facility] ([facility]) [address] [place] [address] RBC Auto (Body fld) [#/Vol] 1000 /uL Normal 0 /uL [facility] Comment on above: Order Comment: The D -Dimer assay is reported in ng/mL Fibrinogen Equivalent Units (FEU). The results of this assay should NOT be used for the exclusion of Deep Vein Thrombosis and/or Pulmonary Embolism. Performed By: #### 4 8065-7 #### VINNY AVILEZ ([id number]) [facility] ([facility]) [address] [place] [address] WBC (Body fld) [#/Vol] 0.277 10*3/uL Normal See Comment [facility] Comment on above: Order Comment: The D -Dimer assay is reported in ng/mL Fibrinogen Equivalent Units (FEU). The results of this assay should NOT be used for the exclusion of Deep Vein Thrombosis and/or Pulmonary Embolism. Performed By: #### 4 8065-7 #### VINNY AVILEZ ([id number]) [facility] ([facility]) [address] [place] [address] 05287 Differential panel (Body fld )on 05-16-2023 Basophils/100 WBC (Body fld) 0 % 0 % [facility] Blasts/100 WBC Manual cnt (Body fld) 0 % 0 % [facility] Cells Counted Total (Body fld) [#] 100 [facility] Eosinophils/100 WBC Manual cnt (Body fld) 0 % 0 % [facility] Immature Granulocytes %, Manual, Fluid 0 % 0 % [facility] Interpretation and review of laboratory results Abnormal [facility] Lymphocytes/100 WBC Manual cnt (Body fld) 41 % <75 % [facility] Monocytes+Macrophages /100 WBC Manual cnt (Body fld) 39 % <70 % [facility] Neutrophils/100 WBC (Body fld) 17 % <25 % [facility] Other cells/100 WBC Manual cnt (Body fld) 3 % High 0 % [facility] Comment on above: mesothelial Plasma cells/100 WBC Manual cnt (Body fld) 0 % 0 % [facility] Body Fluid cell differential reference ranges have not been established by [facility]. Based on published references. [facility] Basophils/100 WBC (Body fld) 0 % Normal 0 % [facility] Comment on above: Order Comment: The D -Dimer assay is reported in ng/mL Fibrinogen Equivalent Units (FEU). The results of this assay should NOT be used for the exclusion of Deep Vein Thrombosis and/or Pulmonary Embolism. Performed By: #### 4 8065-7 #### VINNY AVILEZ ([id number]) [facility] ([facility]) [address] [place] [address] 24388 Blasts/100 WBC Manual cnt (Body fld) 0 % Normal 0 % [facility] Comment on above: Order Comment: The D -Dimer assay is reported in ng/mL Fibrinogen Equivalent Units (FEU). The results of this assay should NOT be used for the exclusion of Deep Vein Thrombosis and/or Pulmonary Embolism. Performed By: #### 4 8065-7 #### VINNY AVILEZ ([id number]) [facility] ([facility]) [address] [place] [address] 59398 Cells Counted Total (Body fld) [#] 100 Normal [facility] Comment on above: Order Comment: The D -Dimer assay is reported in ng/mL Fibrinogen Equivalent Units (FEU). The results of this assay should NOT be used for the exclusion of Deep Vein Thrombosis and/or Pulmonary Embolism. Performed By: #### 4 8065-7 #### VINNY AVILEZ ([id number]) [facility] ([facility]) [address] [place] [address] 71712 Eosinophils/100 WBC Manual cnt (Body fld) 0 % Normal 0 % [facility] Comment on above: Order Comment: The D -Dimer assay is reported in ng/mL Fibrinogen Equivalent Units (FEU). The results of this assay should NOT be used for the exclusion of Deep Vein Thrombosis and/or Pulmonary Embolism. Performed By: #### 4 8065-7 #### VINNY AVILEZ ([id number]) [facility] ([facility]) [address] [place] [address] 81746 IMMATURE GRANULOCYTES IN FLUID 0 % Normal 0 % [facility] Comment on above: Order Comment: The D -Dimer assay is reported in ng/mL Fibrinogen Equivalent Units (FEU). The results of this assay should NOT be used for the exclusion of Deep Vein Thrombosis and/or Pulmonary Embolism. Performed By: #### 4 8065-7 #### VINNY AVILEZ ([id number]) [facility] ([facility]) [address] [place] [address] 41842 Lymphocytes/100 WBC Manual cnt (Body fld) 41 % Normal <75 % [facility] Comment on above: Order Comment: The D -Dimer assay is reported in ng/mL Fibrinogen Equivalent Units (FEU). The results of this assay should NOT be used for the exclusion of Deep Vein Thrombosis and/or Pulmonary Embolism. Performed By: #### 4 8065-7 #### VINNY AVILEZ ([id number]) [facility] ([facility]) [address] [place] [address] 79231 Monocytes+Macrophages /100 WBC Manual cnt (Body fld) 39 % Normal <70 % [facility] Comment on above: Order Comment: The D -Dimer assay is reported in ng/mL Fibrinogen Equivalent Units (FEU). The results of this assay should NOT be used for the exclusion of Deep Vein Thrombosis and/or Pulmonary Embolism. Performed By: #### 4 8065-7 #### VINNY AVILEZ ([id number]) [facility] ([facility]) [address] [place] [address] 72167 Neutrophils/100 WBC (Body fld) 17 % Normal <25 % [facility] Comment on above: Order Comment: The D -Dimer assay is reported in ng/mL Fibrinogen Equivalent Units (FEU). The results of this assay should NOT be used for the exclusion of Deep Vein Thrombosis and/or Pulmonary Embolism. Performed By: #### 4 8065-7 #### VINNY AVILEZ ([id number]) [facility] ([facility]) [address] [place] [address] 21473 Other cells/100 WBC Manual cnt (Body fld) 3 % High 0 % [facility] Comment on above: Order Comment: The D -Dimer assay is reported in ng/mL Fibrinogen Equivalent Units (FEU). The results of this assay should NOT be used for the exclusion of Deep Vein Thrombosis and/or Pulmonary Embolism. Result Comment: meso thelial Performed By: #### 4 8065-7 #### VINNY AVILEZ ([id number]) [facility] ([facility]) [address] [place] [address] 00624 Plasma cells/100 WBC Manual cnt (Body fld) 0 % Normal 0 % [facility] Comment on above: Order Comment: The D -Dimer assay is reported in ng/mL Fibrinogen Equivalent Units (FEU). The results of this assay should NOT be used for the exclusion of Deep Vein Thrombosis and/or Pulmonary Embolism. Performed By: #### 4 8065-7 #### VINNY AVILEZ ([id number]) [facility] ([facility]) [address] [place] [address] 75307 Glucoseon 05-16-2023 Glucose (Body fld) [Mass/Vol] 140 mg/dL Normal Not established [facility] Comment on above: Order Comment: The D -Dimer assay is reported in ng/mL Fibrinogen Equivalent Units (FEU). The results of this assay should NOT be used for the exclusion of Deep Vein Thrombosis and/or Pulmonary Embolism. Performed By: #### 4 8065-7 #### VINNY AVILEZ ([id number]) [facility] ([facility]) [address] [place] [address] 94917 Glucose (Body fld) [Mass/Vol ]on 05-16-2023 The performance characteristics of this test have been validated on peritoneal/ascites, pleural, pericardial, drain, dialysate and liver/pancreatic cyst fluid by the performing [facility]. This test has not been approved by the FDA; however, such approval is not necessary. [facility] Glucose, Fluidon 05-16-2023 Glucose (Body fld) [Mass/Vol] 140 mg/dL Not established [facility] LDH Lactate to pyruvate reac tion (Body fld) [Catalytic activity/Vol]on 05-16-2023 The performance characteristics of this test have been validated on peritoneal/ascites,pleu ral, pericardial and drain fluid by the performing [facility] laboratory. This test has not been approved by the FDA; however, such approval is not necessary. [facility] LDH Lactate to pyruvate reac tion [Catalytic activity/Vol]on 05-16-2023 Interpretation and review of laboratory results Abnormal [facility] - Chemistry and C hemistry - challengeOrdered By: Christophre Sebastian on 05-16-2023 Procalcitonin [Mass/Vol] 0.03 ng/mL Normal <=0.07 [facility] Comment on above: Order Comment: Proca lcitonin (PCT) results measured serially canaid in decision-making for antibiotic discontinuation inpatients with suspected or confirmed sepsis in conjunctionwith additional clinical information. Antibioticdiscontinuation may be considered with a change in PCT of>80% from the peak result or when PCT falls below 0.50 ng/mL.Procalcitonin results should not be used in isolation butshould be interpreted in conjunction with additional clinicaland laboratory findings. Procalcitonin results should not beused to guide the initiation of antibiotic therapy.Falsely low PCT values in the presence of bacterial infectionmay occur in early infection, with atypical pathogens,localized infections, and subacute infectious endocarditis.Falsely elevated results outside of severe bacterialinfection/sepsis may be seen in patients with renal failureor insufficiency, severe trauma or wu, recent majorabdominal/cardiac surgery, acute multi-organ failure, rarelyin patients with medullary thyroid carcinoma and rareneuroendocrine tumors, and non-specific interfering antibodies(heterophile antibodies, rheumatoid factor, human anti-mouseantibodies (HAMA), etc).Performance of the PCT test in pediatric patients (<18yo), women, immunocompromised patients, and patients onimmunomodulatory medications has not been evaluated. Performed By: #### 3 3959-8 ####DAISY Madrigal ([id number])[facility] ([facility])[id number] [place] [address] 17685 Lactate Dehydrogenaseon 05-01 LDH Lactate to pyruvate reaction [Catalytic activity/Vol] 275 U/L High 84 - 246 U/L [facility] Lactate Dehydrogenase, Fluid on 05-16-2023 LDH Lactate to pyruvate reaction (Body fld) [Catalytic activity/Vol] 76 U/L Not established. [facility] Lactate dehydrogenaseon 05-01 LDH Lactate to pyruvate reaction (Body fld) [Catalytic activity/Vol] 76 U/L Normal Not established. [facility] Comment on above: Order Comment: The D -Dimer assay is reported in ng/mL Fibrinogen Equivalent Units (FEU). The results of this assay should NOT be used for the exclusion of Deep Vein Thrombosis and/or Pulmonary Embolism. Performed By: #### 4 8065-7 #### VINNY AVILEZ ([id number]) [facility] ([facility]) [address] [place] [address] LDH Lactate to pyruvate reaction [Catalytic activity/Vol] 275 U/L High 84-246 [facility] Comment on above: Performed By: #### 4 8065-7 #### VINNY AVILEZ ([id number]) [facility] ([facility]) [facility] [place] [address] Lavender Topon 05-16-2023 Extra Tube Hold for add-ons. [facility] Comment on above: Auto resulted. [facility] No Panel Informationon 05-15 [facility] Non-program assistant cytology studyon Non-gynecological cytology method study Pathology report.total SEE COMMENT Non-gynecologic Cytology Case: [id number] Authorizing Provider: Barry Mckay DO Collected: 05/16/2023 1114 Ordering Location: [facility] Received: 05/16/2023 1131 Center 3 Pathologist: Leah Trevino MD Specimen: PLEURAL FLUID RIGHT SIDE Path report.final diagnosis SEE COMMENT A. PLEURAL FLUID RIGHT SIDE Satisfactory for evaluation No malignant cells identified Laboratory comment SEE COMMENT Slide(s) initially screened by DANY Churchill at [facility] [address] [place] [phone] By the signature on this report, the individual or group listed as making the Final Interpretation/Diagnosi s certifies that they have reviewed this case. Path report.relevant Hx Right Effusion[2000ml of clear yellow fluid from right Thora Path report.gross observation SEE COMMENT A. PLEURAL FLUID RIGHT SIDE. Received 8 ml yellow clear fluid without particles in sterile tube. Laboratory comment SEE COMMENT P7Vsecbt Only (No Block) A1-1Pap Stain NGYN ThinPrep A2Cell Block A2-1H&E Normal [facility] Procalcitonin [Mass/Vol]Orde red By: Christopher Sebastian on 05-16-2023 Interpretation and review of laboratory results Normal [facility] Procalcitonin (PCT) results measured serially can aid in decision-making for antibiotic discontinuation in patients with suspected or confirmed sepsis in conjunction with additional clinical information. Antibiotic discontinuation may be considered with a change in PCT of >80% from the peak result or when PCT falls below 0.50 ng/mL. Procalcitonin results should not be used in isolation but should be interpreted in conjunction with additional clinical and laboratory findings. Procalcitonin results should not be used to guide the initiation of antibiotic therapy. Falsely low PCT values in the presence of bacterial infection may occur in early infection, with atypical pathogens, localized infections, and subacute infectious endocarditis. Falsely elevated results outside of severe bacterial infection/sepsis may be seen in patients with renal failure or insufficiency, severe trauma or wu, recent major abdominal/cardiac surgery, acute multi-organ failure, rarely in patients with medullary thyroid carcinoma and rare neuroendocrine tumors, and non-specific interfering antibodies (heterophile antibodies, rheumatoid factor, human anti-mouse antibodies (HAMA), etc). Performance of the PCT test in pediatric patients (<18yo), women, immunocompromised patients, and patients on immunomodulatory medications has not been evaluated. [facility] Proteinon 05-16-2023 Protein (Body fld) [Mass/Vol] 2.3 g/dL Normal Not established [facility] Comment on above: Order Comment: The D -Dimer assay is reported in ng/mL Fibrinogen Equivalent Units (FEU). The results of this assay should NOT be used for the exclusion of Deep Vein Thrombosis and/or Pulmonary Embolism. Performed By: #### 4 8065-7 #### CASILLAS RAGHAV ([id number]) [facility] ([facility]) [address] [place] [address] 92708 Protein [Mass/Vol] 6.6 g/dL Normal 6.4-8.2 [facility] Comment on above: Performed By: #### 2 885-2 ####CASILLAS RAGHAV ([id number])[facility] ([facility])[address] [place] [address] 27845 Protein (Body fld) [Mass/Vol ]on 05-16-2023 The performance characteristics of this test have been validated on peritoneal/ascites,pleu ral, pericardial, drain, and liver/pancreatic cyst fluid by the performing [facility] laboratory. This test has not been approved by the FDA; however, such approval is not necessary. [facility] Protein [Mass/Vol]on 024 Interpretation and review of laboratory results Normal [facility] Protein, Totalon 05-16-2023 Protein [Mass/Vol] 6.6 g/dL 6.4 - 8.2 g/dL [facility] Protein, Total Fluidon 05-15 Protein (Body fld) [Mass/Vol] 2.3 g/dL Not established [facility] Respiratory Culture/SmearOrd ered By: Ez Doherty on 05-16-2023 Bacteria identified Respiratory culture Nom (Unsp spec) Culture not performed. See Gram stain findings. Recollect if clinically indicated. Abnormal [facility] TRANSTHORACIC ECHO (TTE) COM PLETEon 05-16-2023 TRANSTHORACIC ECHO (TTE) [address] [address] ext-[phone], TRANSTHORACIC ECHOCARDIOGRAM REPORT Patient Name: ADA JUNE Reading Physician: [id number] Yoshi Jimenez MD Study Date: 05/16/2023 Ordering Provider: [id number] TARA BLANCO MRN/PID: [id number] Fellow: Nurse: Tracie Box RN Date of /Age: 6 1945 / 77 years Production Assembly Supervisor: Margarito Carrasquillo RDCS Gender: M Additional Staff: Height: 180.34 cm Admit Date: 05/15/2023 Weight: 91.63 kg Admission Status: Inpatient - Routine BSA / BMI: 2.12 m2 / 28.17 kg/m2 Department Location: [address] Blood Pressure: 172 /74 mmHg Study Type: TRANSTHORACIC ECHO (TTE) COMPLETE Diagnosis/ICD: Unspecified systolic (congestive) heart failure (CHF)-I50.20 CPT Codes: Echo Complete w Full Doppler-66636 Study Detail: The following Echo studies were performed: 2D, M-Mode, Doppler and color flow. Definity used as a contrast agent for endocardial border definition. Total contrast used for this procedure was 2.00cc mL via IV push. PHYSICIAN INTERPRETATION: Left Ventricle: Left ventricular systolic function is normal, with an estimated ejection fraction of 55-60%. There are no regional wall motion abnormalities. The left ventricular cavity size is normal. Left ventricular diastolic filling was indeterminate. Left Atrium: The left atrium is moderately dilated. Right Ventricle: The right ventricle is normal in size. There is low normal right ventricular systolic function. Right Atrium: The right atrium is moderately dilated. Aortic Valve: There is a prosthetic aortic valve present. There is no evidence of aortic valve regurgitation. The peak instantaneous gradient of the aortic valve is 38.2 mmHg. The mean gradient of the aortic valve is 21.0 mmHg. Mitral Valve: The mitral valve is abnormal. There is no evidence of mitral valve regurgitation. Sequelae of mitral valve ring repair noted-mean gradient 6 mm at a heart rate of 54 bpm. Tricuspid Valve: The tricuspid valve is structurally normal. There is mild tricuspid regurgitation. Pulmonic Valve: The pulmonic valve is not well visualized. There is no indication of pulmonic valve regurgitation. Pericardium: There is no pericardial effusion noted. Aorta: The aortic root is normal. Systemic Veins: The inferior vena cava appears dilated. CONCLUSIONS: 1. Left ventricular systolic function is normal with a 55-60% estimated ejection fraction. 2. There is low normal right ventricular systolic function. 3. Sequelae of mitral valve ring repair noted-mean gradient 6 mm at a heart rate of 54 bpm. 4. Moderate biatrial dilatation (visually). 5. Hemodynamics/2D images suggestive of normal functioning of bioprosthetic aortic valve. No prior gradients available for comparison. 6. Poorly visualized anatomical structures due to suboptimal image quality. QUANTITATIVE DATA SUMMARY: 2D MEASUREMENTS: Normal Ranges: Ao Root d: 2.40 cm (2.0-3.7cm) LAs: 4.90 cm (2.7-4.0cm) IVSd: 1.14 cm (0.6-1.1cm) LVPWd: 1.17 cm (0.6-1.1cm) LVIDd: 5.17 cm (3.9-5.9cm) LVIDs: 4.30 cm LV Mass Index: 110.4 g/m2 LV % FS 16.8 % LA VOLUME: Normal Ranges: LA Vol A4C: 55.2 ml (22+/-6mL/m2) LA Vol A2C: 55.8 ml LA Vol BP: 56.3 ml LA Vol Index A4C: 26.0ml/m2 LA Vol Index A2C: 26.4 ml/m2 LA Vol Index BP: 26.6 ml/m2 LA Area A4C: 19.4 cm2 LA Area A2C: 19.8 cm2 LA Major [place]itage A4C: 5.8 cm LA Major [place] A2C: 6.0 cm LA Volume Index: 25.4 ml/m2 LA Vol A4C: 53.9 ml LA Vol A2C: 53.7 ml LV SYSTOLIC FUNCTION BY 2D PLANIMETRY (MOD): Normal Ranges: EF-A4C View: 58.6 % (>=55%) EF-A2C View: 52.7 % EF-Biplane: 55.1 % AORTIC VALVE: Normal Ranges: AoV Vmax: 3.09 m/s (<=1.7m/s) AoV Peak P.2 mmHg (<20mmHg) AoV Mean P.0 mmHg (1.7-11.5mmHg) LVOT Max Kenneth: 1.21 m/s (<=1.1m/s) AoV VTI: 72.70 cm (18-25cm) LVOT VTI: 25.50 cm LVOT Diameter: 1.60 cm (1.8-2.4cm) AoV Area, VTI: 0.71 cm2 (2.5-5.5cm2) AoV Area,Vmax: 0.79 cm2 (2.5-4.5cm2) AoV Dimensionless Index: 0.35 RIGHT VENTRICLE: RV Basal 6.74 cm RV Mid 5.06 cm RV Major 9.3 cm [id number] Yoshi Jimenez MD Electronically signed on 05/16/2023 at 11:17:04 AM Final Normal [facility] Heart TransthoracicOrdere d By: Yoshi Jimenez on 05-16-2023 Aortic Valve Area by Continuity of Peak Velocity 0.79 cm2 [facility] Work Phone: Aortic Valve Area by Continuity of VTI 0.71 cm2 [facility] Work Phone: AV mn grad 21.0 mmHg [facility] Work Phone: AV pk grad 38.2 mmHg [facility] Work Phone: AV pk kenneth 3.09 m/s [facility] Work Phone: LA vol index A/L 26.6 ml/m2 [facility] Work Phone: LV A4C EF 58.6 [facility] Work Phone: LV biplane EF 55 % [facility] Work Phone: LVIDd 5.17 cm [facility] Work Phone: LVOT diam 1.60 cm [facility] Work Phone: [facility] Work Phone: [place] [address] ext-[phone], TRANSTHORACIC ECHOCARDIOGRAM REPORT Patient Name: ADA NOLANDVaishnavi Bush Physician: [id number] Jimenez MD Study Date: 05/16/2023 Ordering Provider: [id number] TARA BLANCO MRN/PID: [id number] Fellow: Nurse: Tracie Box RN Date of /Age: 6 1945 / 77 years Production Assembly Supervisor: Margarito Carrasquillo RDCS Gender: M Additional Staff: Height: 180.34 cm Admit Date: 05/15/2023 Weight: 91.63 kg Admission Status: Inpatient - Routine BSA / BMI: 2.12 m2 / 28.17 kg/m2 Department Location: [address] Blood Pressure: 172 /74 mmHg Study Type: TRANSTHORACIC ECHO (TTE) COMPLETE Diagnosis/ICD: Unspecified systolic (congestive) heart failure (CHF)-I50.20 CPT Codes: Echo Complete w Full Doppler-85601 Study Detail: The following Echo studies were performed: 2D, M-Mode, Doppler and color flow. Definity used as a contrast agent for endocardial border definition. Total contrast used for this procedure was 2.00cc mL via IV push. PHYSICIAN INTERPRETATION: Left Ventricle: Left ventricular systolic function is normal, with an estimated ejection fraction of 55-60%. There are no regional wall motion abnormalities. The left ventricular cavity size is normal. Left ventricular diastolic filling was indeterminate. Left Atrium: The left atrium is moderately dilated. Right Ventricle: The right ventricle is normal in size. There is low normal right ventricular systolic function. Right Atrium: The right atrium is moderately dilated. Aortic Valve: There is a prosthetic aortic valve present. There is no evidence of aortic valve regurgitation. The peak instantaneous gradient of the aortic valve is 38.2 mmHg. The mean gradient of the aortic valve is 21.0 mmHg. Mitral Valve: The mitral valve is abnormal. There is no evidence of mitral valve regurgitation. Sequelae of mitral valve ring repair noted-mean gradient 6 mm at a heart rate of 54 bpm. Tricuspid Valve: The tricuspid valve is structurally normal. There is mild tricuspid regurgitation. Pulmonic Valve: The pulmonic valve is not well visualized. There is no indication of pulmonic valve regurgitation. Pericardium: There is no pericardial effusion noted. Aorta: The aortic root is normal. Systemic Veins: The inferior vena cava appears dilated. CONCLUSIONS: 1. Left ventricular systolic function is normal with a 55-60% estimated ejection fraction. 2. There is low normal right ventricular systolic function. 3. Sequelae of mitral valve ring repair noted-mean gradient 6 mm at a heart rate of 54 bpm. 4. Moderate biatrial dilatation (visually). 5. Hemodynamics/2D images suggestive of normal functioning of bioprosthetic aortic valve. No prior gradients available for comparison. 6. Poorly visualized anatomical structures due to suboptimal image quality. QUANTITATIVE DATA SUMMARY: 2D MEASUREMENTS: Normal Ranges: Ao Root d: 2.40 cm (2.0-3.7cm) LAs: 4.90 cm (2.7-4.0cm) IVSd: 1.14 cm (0.6-1.1cm) LVPWd: 1.17 cm (0.6-1.1cm) LVIDd: 5.17 cm (3.9-5.9cm) LVIDs: 4.30 cm LV Mass Index: 110.4 g/m2 LV % FS 16.8 % LA VOLUME: Normal Ranges: LA Vol A4C: 55.2 ml (22+/-6mL/m2) LA Vol A2C: 55.8 ml LA Vol BP: 56.3 ml LA Vol Index A4C: 26.0ml/m2 LA Vol Index A2C: 26.4 ml/m2 LA Vol Index BP: 26.6 ml/m2 LA Area A4C: 19.4 cm2 LA Area A2C: 19.8 cm2 LA Major Hermitage A4C: 5.8 cm LA Major [place] A2C: 6.0 cm LA Volume Index: 25.4 ml/m2 LA Vol A4C: 53.9 ml LA Vol A2C: 53.7 ml LV SYSTOLIC FUNCTION BY 2D PLANIMETRY (MOD): Normal Ranges: EF-A4C View: 58.6 % (>=55%) EF-A2C View: 52.7 % EF-Biplane: 55.1 % AORTIC VALVE: Normal Ranges: AoV Vmax: 3.09 m/s (<=1.7m/s) AoV Peak P.2 mmHg (<20mmHg) AoV Mean P.0 mmHg (1.7-11.5mmHg) LVOT Max Kenneth: 1.21 m/s (<=1.1m/s) AoV VTI: 72.70 cm (18-25cm) LVOT VTI: 25.50 cm LVOT Diameter: 1.60 cm (1.8-2.4cm) AoV Area, VTI: 0.71 cm2 (2.5-5.5cm2) AoV Area,Vmax: 0.79 cm2 (2.5-4.5cm2) AoV Dimensionless Index: 0.35 RIGHT VENTRICLE: RV Basal 6.74 cm RV Mid 5.06 cm RV Major 9.3 cm [id number] Yoshi Ballard (more content not included)... Yoshi Kelley MD - 05/16/2023 [place] [address] [phone], TRANSTHORACIC ECHOCARDIOGRAM REPORT Patient Name: ADA JUNE Reading Physician: [id number] Yoshi Jimenez MD Study Date: 05/16/2023 Ordering Provider: [id number] TARA BLANCO MRN/PID: [id number] Fellow: Nurse: Tracie Box RN Date of /Age: 6 1945 / 77 years Production Assembly Supervisor: Margarito Carrasquillo RDCS Gender: M Additional Staff: Height: 180.34 cm Admit Date: 05/15/2023 Weight: 91.63 kg Admission Status: Inpatient - Routine BSA / BMI: 2.12 m2 / 28.17 kg/m2 Department Location: [address] Blood Pressure: 172 /74 mmHg Study Type: TRANSTHORACIC ECHO (TTE) COMPLETE Diagnosis/ICD: Unspecified systolic (congestive) heart failure (CHF)-I50.20 CPT Codes: Echo Complete w Full Doppler-[id number] Study Detail: The following Echo studies were performed: 2D, M-Mode, Doppler and color flow. Definity used as a contrast agent for endocardial border definition. Total contrast used for this procedure was 2.00cc mL via IV push. PHYSICIAN INTERPRETATION: Left Ventricle: Left ventricular systolic function is normal, with an estimated ejection fraction of 55-60%. There are no regional wall motion abnormalities. The left ventricular cavity size is normal. Left ventricular diastolic filling was indeterminate. Left Atrium: The left atrium is moderately dilated. Right Ventricle: The right ventricle is normal in size. There is low normal right ventricular systolic function. Right Atrium: The right atrium is moderately dilated. Aortic Valve: There is a prosthetic aortic valve present. There is no evidence of aortic valve regurgitation. The peak instantaneous gradient of the aortic valve is 38.2 mmHg. The mean gradient of the aortic valve is 21.0 mmHg. Mitral Valve: The mitral valve is abnormal. There is no evidence of mitral valve regurgitation. Sequelae of mitral valve ring repair noted-mean gradient 6 mm at a heart rate of 54 bpm. Tricuspid Valve: The tricuspid valve is structurally normal. There is mild tricuspid regurgitation. Pulmonic Valve: The pulmonic valve is not well visualized. There is no indication of pulmonic valve regurgitation. Pericardium: There is no pericardial effusion noted. Aorta: The aortic root is normal. Systemic Veins: The inferior vena cava appears dilated. CONCLUSIONS: 1. Left ventricular systolic function is normal with a 55-60% estimated ejection fraction. 2. There is low normal right ventricular systolic function. 3. Sequelae of mitral valve ring repair noted-mean gradient 6 mm at a heart rate of 54 bpm. 4. Moderate biatrial dilatation (visually). 5. Hemodynamics/2D images suggestive of normal functioning of bioprosthetic aortic valve. No prior gradients available for comparison. 6. Poorly visualized anatomical structures due to suboptimal image quality. QUANTITATIVE DATA SUMMARY: 2D MEASUREMENTS: Normal Ranges: Ao Root d: 2.40 cm (2.0-3.7cm) LAs: 4.90 cm (2.7-4.0cm) IVSd: 1.14 cm (0.6-1.1cm) LVPWd: 1.17 cm (0.6-1.1cm) LVIDd: 5.17 cm (3.9-5.9cm) LVIDs: 4.30 cm LV Mass Index: 110.4 g/m2 LV % FS 16.8 % LA VOLUME: Normal Ranges: LA Vol A4C: 55.2 ml (22+/-6mL/m2) LA Vol A2C: 55.8 ml LA Vol BP: 56.3 ml LA Vol Index A4C: 26.0ml/m2 LA Vol Index A2C: 26.4 ml/m2 LA Vol Index BP: 26.6 ml/m2 LA Area A4C: 19.4 cm2 LA Area A2C: 19.8 cm2 LA Major [place] A4C: 5.8 cm LA Major [place] A2C: 6.0 cm LA Volume Index: 25.4 ml/m2 LA Vol A4C: 53.9 ml LA Vol A2C: 53.7 ml LV SYSTOLIC FUNCTION BY 2D PLANIMETRY (MOD): Normal Ranges: EF-A4C View: 58.6 % (>=55%) EF-A2C View: 52.7 % EF-Biplane: 55.1 % AORTIC VALVE: Normal Ranges: AoV Vmax: 3.09 m/s (<=1.7m/s) AoV Peak P.2 mmHg (<20mmHg) AoV Mean P.0 mmHg (1.7-11.5mmHg) LVOT Max Kenneth: 1.21 m/s (<=1.1m/s) AoV VTI: 72.70 cm (18-25cm) LVOT VTI: 25.50 cm LVOT Diameter: 1.60 cm (1.8-2.4cm) AoV Area, VTI: 0.71 cm2 (2.5-5.5cm2) AoV Area,Vmax: 0.79 cm2 (2.5-4.5cm2) AoV Dimensionless Index: 0.35 RIGHT VENTRICLE: RV Basal 6.74 cm RV Mid 5.06 cm RV Major 9.3 cm [id number] Yoshi Jimenez MD Electronically signed on 05/16/2023 at 11:17:04 AM Final [facility] Work Phone: pHon 05-16-2023 pH (Body fld) 7.27 Normal See Below [facility] Comment on above: Order Comment: The D -Dimer assay is reported in ng/mL Fibrinogen Equivalent Units (FEU). The results of this assay should NOT be used for the exclusion of Deep Vein Thrombosis and/or Pulmonary Embolism. Performed By: #### 4 8065-7 #### CASILLAS RAGHAV ([id number]) [facility] ([facility]) [address] [place] [address] pH (Body fld)Ordered By: Farhana Hernandez on 05-16-2023 Pleural fluid: -pH < 7.3 usually seen in association with empyema, malignancy, collagen vascular disease, tuberculosis, esophageal rupture, or hemothorax -Parapneumonic effusion with pH > 7.3 usually resolves with medical therapy while a parapneumonic effusion with pH < 7.2 may require surgical drainage -Rheumatoid and malignant effusions with pH < 7.2 usually have a poor response to pleurodesis -pH < 6.0 may suggest esophageal rupture The pH of fluid from pleural effusions from other causes generally approximates that of serum (7.38-7.42) Peritoneal/Ascitic fluid: -pH < 7.32 or blood-ascitic fluid pH difference of > 0.10 and the presence of neutrophils suggests spontaneous bacterial peritonitis -pH < 7.15 may indicate poor prognosis The pH of ascitic fluid in the absence of infection usually approximates that of serum (7.38-7.42). Pericardial fluid: -Rheumatic or purulent pericarditis may have a pH < 7.10 -Malignancy, uremia, tuberculosis, and idiopathic disorders may fall in range of 7.20-7.30 Synovial fluid The pH of synovial fluid generally approximates that of serum (7.38-7.42). [facility] pH, Body FluidOrdered By: Fernando Hernandez on 05-16-2023 pH (Body fld) 7.27 [pH] See Below [facility] Bacteria identifiedon 2023 Bacteria identified Cx Nom (Bld) Test: Blood Culture Specimen Source: Peripheral Venipuncture Specimen Type: Blood culture Specimen Date: 05/15/2023 4:34 PM Result Date: 05/20/2023 2:00 AM Result Status: Final result Abnormal: No Resulting Lab: [facility] [address] [place] [address] CULTURE No growth at 4 days - FINAL REPORT [facility] Comment on above: Performed By: #### 6 00-7 ####DAISY Madrigal ([id number])[facility] ([facility])[address] [place], [place] [id number] Bacteria identified Cx Nom (Bld) Test: Blood Culture Specimen Source: Peripheral Venipuncture Specimen Type: Blood culture Specimen Date: 05/15/2023 4:29 PM Result Date: 05/20/2023 2:00 AM Result Status: Final result Abnormal: No Resulting Lab: [facility] [address] [place] [address] CULTURE No growth at 4 days - FINAL REPORT Normal [facility] Comment on above: Performed By: #### 6 00-7 ####DAISY Madrigal ([id number])[facility] ([facility])[id number] [place] [address] CBC W Auto Differential pane l (Bld)on 05-15-2023 Basophils (Bld) [#/Vol] 0.05 10*3/uL [facility] Basophils/100 WBC (Bld) 0.6 % 0.0 - 2.0 % [facility] Eosinophils (Bld) [#/Vol] 0.05 10*3/uL [facility] Eosinophils/100 WBC (Bld) 0.6 % 0.0 - 6.0 % [facility] Erythrocyte distribution width (RBC) [Ratio] 15.8 % High 11.5 - 14.5 % [facility] Hematocrit (Bld) [Volume fraction] 33.6 % Low 41.0 - 52.0 % [facility] Hemoglobin (Bld) [Mass/Vol] 10.4 g/dL Low 13.5 - 17.5 g/dL [facility] Immature granulocytes (Bld) [#/Vol] 0.03 10*3/uL [facility] Immature granulocytes/100 WBC (Bld) 0.3 % 0.0 - 0.9 % [facility] Comment on above: Immature Granulocyte Count (IG) includes promyelocytes, myelocytes and metamyelocytes but does not include bands. Percent differential counts (%) should be interpreted in the context of the absolute cell counts (cells/UL). Interpretation and review of laboratory results Abnormal [facility] Lymphocytes (Bld) [#/Vol] 0.96 10*3/uL [facility] Lymphocytes/100 WBC (Bld) 10.7 % 13.0 - 44.0 % [facility] MCH (RBC) [Entitic mass] 28.1 pg 26.0 - 34.0 pg [facility] MCHC (RBC) [Mass/Vol] 31.0 g/dL Low 32.0 - 36.0 g/dL [facility] MCV (RBC) [Entitic vol] 91 fL 80 - 100 fL [facility] Monocytes (Bld) [#/Vol] 0.73 10*3/uL [facility] Monocytes/100 WBC (Bld) 8.2 % 2.0 - 10.0 % [facility] Neutrophils (Bld) [#/Vol] 7.13 10*3/uL High [facility] Comment on above: Percent differential counts (%) should be interpreted in the context of the absolute cell counts (cells/uL). Neutrophils/100 WBC (Bld) 79.6 % 40.0 - 80.0 % [facility] Nucleated RBC/100 WBC (Bld) [Ratio] 0.0 % [facility] Platelets (Bld) [#/Vol] 295 10*3/uL [facility] RBC (Bld) [#/Vol] 3.70 10*6/uL Low [facility] WBC (Bld) [#/Vol] 9.0 10*3/uL [facility] Basophils (Bld) [#/Vol] 0.05 x10*3/uL Normal 0.00-0.10 [facility] Comment on above: Performed By: #### 5 7021-8 #### VINNY AVILEZ ([id number]) [facility] ([facility]) [address] [place] [address] 84681 Basophils/100 WBC (Bld) 0.6 % Normal 0.0-2.0 [facility] Comment on above: Performed By: #### 5 7021-8 #### VINNY AVILEZ ([id number]) [facility] ([facility]) [address] [place] [address] 40839 Eosinophils (Bld) [#/Vol] 0.05 x10*3/uL Normal 0.00-0.40 [facility] Comment on above: Performed By: #### 5 7021-8 #### VINNY AVILEZ ([id number]) [facility] ([facility]) [address] [place] [address] 92325 Eosinophils/100 WBC (Bld) 0.6 % Normal 0.0-6.0 [facility] Comment on above: Performed By: #### 5 7021-8 #### VINNY AVILEZ ([id number]) [facility] ([facility]) [address] [place] [address] 42014 Erythrocyte distribution width (RBC) [Ratio] 15.8 % High 11.5-14.5 [facility] Comment on above: Performed By: #### 5 7021-8 #### VINNY AVILEZ ([id number]) [facility] ([facility]) [address] [place] [address] Hematocrit (Bld) [Volume fraction] 33.6 % Low 41.0-52.0 [facility] Comment on above: Performed By: #### 5 7021-8 #### VINNY AVILEZ ([id number]) [facility] ([facility]) [address] [place] [address] Hemoglobin (Bld) [Mass/Vol] 10.4 g/dL Low 13.5-17.5 [facility] Comment on above: Performed By: #### 5 7021-8 #### VINNY AVILEZ ([id number]) [facility] ([facility]) [address] [place] [address] Immature granulocytes (Bld) [#/Vol] 0.03 x10*3/uL Normal 0.00-0.50 [facility] Comment on above: Performed By: #### 5 7021-8 #### VINNY AVILEZ ([id number]) [facility] ([facility]) [address] [place], [place] [id number] Immature granulocytes/100 WBC (Bld) 0.3 % Normal 0.0-0.9 [facility] Comment on above: Result Comment: Jina ture Granulocyte Count (IG) includes promyelocytes, myelocytes and metamyelocytes but does not include bands. Percent differential counts (%) should be interpreted in the context of the absolute cell counts (cells/UL). Performed By: #### 5 7021-8 #### VINNY AVILEZ ([id number]) [facility] ([facility]) [address] [place], [place] [address] Lymphocytes (Bld) [#/Vol] 0.96 x10*3/uL Normal 0.80-3.00 [facility] Comment on above: Performed By: #### 5 7021-8 #### VINNY AVILEZ ([id number]) [facility] ([facility]) [address] [place] [address] 21832 Lymphocytes/100 WBC (Bld) 10.7 % Normal 13.0-44.0 [facility] Comment on above: Performed By: #### 5 7021-8 #### VINNY AVILEZ ([id number]) [facility] ([facility]) [address] [place] [address] 24151 MCH (RBC) [Entitic mass] 28.1 pg Normal 26.0-34.0 [facility] Comment on above: Performed By: #### 5 7021-8 #### VINNY AVILEZ ([id number]) [facility] ([facility]) [address] [place] [address] 21821 MCHC (RBC) [Mass/Vol] 31.0 g/dL Low 32.0-36.0 [facility] Comment on above: Performed By: #### 5 7021-8 #### VINNY AVILEZ ([id number]) [facility] ([facility]) [address] [place] [address] 92144 MCV (RBC) [Entitic vol] 91 fL Normal 80-100 [facility] Comment on above: Performed By: #### 5 7021-8 #### VINNY AVILEZ ([id number]) [facility] ([facility]) [address] [place] [address] 38201 Monocytes (Bld) [#/Vol] 0.73 x10*3/uL Normal 0.05-0.80 [facility] Comment on above: Performed By: #### 5 7021-8 #### VINNY AVILEZ ([id number]) [facility] ([facility]) [address] [place] [address] 38892 Monocytes/100 WBC (Bld) 8.2 % Normal 2.0-10.0 [facility] Comment on above: Performed By: #### 5 7021-8 #### VINNY AVILEZ ([id number]) [facility] ([facility]) [address] [place] [address] 42559 Neutrophils (Bld) [#/Vol] 7.13 x10*3/uL High 1.60-5.50 [facility] Comment on above: Result Comment: Perc ent differential counts (%) should be interpreted in the context of the absolute cell counts (cells/uL). Performed By: #### 5 7021-8 #### VINNY AVILEZ ([id number]) [facility] ([facility]) [address] [place] [address] 35963 Neutrophils/100 WBC (Bld) 79.6 % Normal 40.0-80.0 [facility] Comment on above: Performed By: #### 5 7021-8 #### VINNY AVILEZ ([id number]) [facility] ([facility]) [address] [place] [address] 09550 Nucleated RBC/100 WBC (Bld) [Ratio] 0.0 /100 WBCs Normal 0.0-0.0 [facility] Comment on above: Performed By: #### 5 7021-8 #### VINNY AVILEZ ([id number]) [facility] ([facility]) [address] [place] [address] 32185 Platelets (Bld) [#/Vol] 295 x10*3/uL Normal 150-450 [facility] Comment on above: Performed By: #### 5 7021-8 #### VINNY AVILEZ ([id number]) [facility] ([facility]) [address] [place] [address] 13736 RBC (Bld) [#/Vol] 3.70 x10*6/uL Low 4.50-5.90 [facility] Comment on above: Performed By: #### 5 7021-8 #### VINNY AVILEZ ([id number]) [facility] ([facility]) [address] [place] [address] 25430 WBC (Bld) [#/Vol] 9.0 x10*3/uL Normal 4.4-11.3 [facility] Comment on above: Performed By: #### 5 7021-8 #### VINNY AVILEZ ([id number]) [facility] ([facility]) [address] [place] [address] CT ANGIO CHEST FOR PULMONARY EMBOLISMon 05-15-2023 CT ANGIO CHEST FOR PULMONARY EMBOLISM Interpreted By: Orly Ibarra, STUDY: CT ANGIO CHEST FOR PULMONARY EMBOLISM; 05/15/2023 5:34 pm INDICATION: Signs/Symptoms:dyspnea. elevated d dimer. COMPARISON: None. ACCESSION NUMBER(S): [id number] ORDERING CLINICIAN: AZ LIU TECHNIQUE: Helical data acquisition of the chest was obtained with IV contrast material. MIP reconstructions. 68 mL of Omnipaque 350. Images were reformatted in axial, coronal, and sagittal planes. FINDINGS: Lungs and Pleura: Large right and small left pleural effusion with loculations. Interlobular septal thickening and ground-glass opacities suggestive of pulmonary edema. Mild paraseptal pulmonary emphysematous changes. No pneumothorax. Mediastinum and axilla: No evidence of pulmonary embolism. Subcarinal lymphadenopathy measuring 18 mm. Lymphadenopathy in the pretracheal and paratracheal stations also noted, as well as aortopulmonary window, measuring up to 17 mm. Cardiomegaly. No pericardial effusion. Reflux of contrast into the hepatic veins suggesting increased right heart pressure. No thoracic aortic aneurysm. Atherosclerosis. Atrial clip. Advanced coronary artery calcifications. Sternotomy wires status post CABG. Visualized Upper Abdomen: No worrisome findings in the visualized upper abdomen. MSK/Chest Wall: Left humeral neck fracture. IMPRESSION: No pulmonary embolism. Pulmonary edema with large right and small left pleural effusion. Mild pulmonary emphysematous changes. Mediastinal lymphadenopathy, reactive or neoplastic. Consider 3-6 month follow-up to ensure resolution. Signed by: Orly Ibarra 05/15/2023 6:30 PM Dictation workstation: [id number] [facility] CT Chest W contrast IV and C T angiogram Pulmonary arteries for pulmonary embolus W contrast Victor Manuel 05-15-2023 No pulmonary embolis m. Pulmonary edema with large right and small left pleural effusion. Mild pulmonary emphysematous changes. Mediastinal lymphadenopathy, reactive or neoplastic. Consider 3-6 month follow-up to ensure resolution. Signed by: Orly Ibarra 05/15/2023 6:30 PM Dictation workstation: [id number] MMODAL Interpreted By: Orly Ibarra, STUDY: CT ANGIO CHEST FOR PULMONARY EMBOLISM; 05/15/2023 5:34 pm INDICATION: Signs/Symptoms:dyspnea. elevated d dimer. COMPARISON: None. ACCESSION NUMBER(S): [id number] ORDERING CLINICIAN: AZ LIU TECHNIQUE: Helical data acquisition of the chest was obtained with IV contrast material. MIP reconstructions. 68 mL of Omnipaque 350. Images were reformatted in axial, coronal, and sagittal planes. FINDINGS: Lungs and Pleura: Large right and small left pleural effusion with loculations. Interlobular septal thickening and ground-glass opacities suggestive of pulmonary edema. Mild paraseptal pulmonary emphysematous changes. No pneumothorax. Mediastinum and axilla: No evidence of pulmonary embolism. Subcarinal lymphadenopathy measuring 18 mm. Lymphadenopathy in the pretracheal and paratracheal stations also noted, as well as aortopulmonary window, measuring up to 17 mm. Cardiomegaly. No pericardial effusion. Reflux of contrast into the hepatic veins suggesting increased right heart pressure. No thoracic aortic aneurysm. Atherosclerosis. Atrial clip. Advanced coronary artery calcifications. Sternotomy wires status post CABG. Visualized Upper Abdomen: No worrisome findings in the visualized upper abdomen. MSK/Chest Wall: Left humeral neck fracture. MMODAL rOly Ibarra MD - 05/15/2023 Interpreted By: Orly Ibarra, STUDY: CT ANGIO CHEST FOR PULMONARY EMBOLISM; 05/15/2023 5:34 pm INDICATION: Signs/Symptoms:dyspnea. elevated d dimer. COMPARISON: None. ACCESSION NUMBER(S): [id number] ORDERING CLINICIAN: AZ LIU TECHNIQUE: Helical data acquisition of the chest was obtained with IV contrast material. MIP reconstructions. 68 mL of Omnipaque 350. Images were reformatted in axial, coronal, and sagittal planes. FINDINGS: Lungs and Pleura: Large right and small left pleural effusion with loculations. Interlobular septal thickening and ground-glass opacities suggestive of pulmonary edema. Mild paraseptal pulmonary emphysematous changes. No pneumothorax. Mediastinum and axilla: No evidence of pulmonary embolism. Subcarinal lymphadenopathy measuring 18 mm. Lymphadenopathy in the pretracheal and paratracheal stations also noted, as well as aortopulmonary window, measuring up to 17 mm. Cardiomegaly. No pericardial effusion. Reflux of contrast into the hepatic veins suggesting increased right heart pressure. No thoracic aortic aneurysm. Atherosclerosis. Atrial clip. Advanced coronary artery calcifications. Sternotomy wires status post CABG. Visualized Upper Abdomen: No worrisome findings in the visualized upper abdomen. MSK/Chest Wall: Left humeral neck fracture. IMPRESSION: No pulmonary embolism. Pulmonary edema with large right and small left pleural effusion. Mild pulmonary emphysematous changes. Mediastinal lymphadenopathy, reactive or neoplastic. Consider 3-6 month follow-up to ensure resolution. Signed by: Orly Ibarra 05/15/2023 6:30 PM Dictation workstation: [id number] [facility] Work Phone: Radiology Study observation (narrative) [facility] Work Phone: CT Chest W contrast IV and C T angiogram Pulmonary arteries for pulmonary embolus W contrast IVOrdered By: Orly Ibarra on 05-15-2023 [facility] Work Phone: Coagulation surface inducedo n 05-15-2023 aPTT Coag (PPP) [Time] 36 s Normal 27-38 [facility] Comment on above: Order Comment: The A PTT is no longer used for monitoring Unfractionated Heparin Therapy. For monitoring Heparin Therapy, use the Heparin Assay. Performed By: #### 1 4979-9 #### VINNY AVILEZ ([id number]) [facility] ([facility]) [address] [place], [place] [address] Coagulation tissue factor in ducedon 05-15-2023 PT Coag (PPP) [Time] 15.7 s High 9.8-12.8 [facility] Comment on above: Performed By: #### 5 902-2 #### VINNY AVILEZ ([id number]) [facility] ([facility]) [address] [place] [address] 87600 Comprehensive metabolic 2000 panelon 05-15-2023 Albumin BCP dye [Mass/Vol] 3.6 g/dL 3.4 - 5.0 g/dL [facility] ALP [Catalytic activity/Vol] 117 U/L 33 - 136 U/L [facility] ALT With P-5'-P [Catalytic activity/Vol] 11 U/L 10 - 52 U/L [facility] Comment on above: Patients treated wit h Sulfasalazine may generate falsely decreased results for ALT. Anion gap [Moles/Vol] 13 mmol/L 10 - 2 0 mmol/L [facility] AST With P-5'-P [Catalytic activity/Vol] 11 U/L 9 - 39 U/L [facility] Bilirubin [Mass/Vol] 0.8 mg/dL 0.0 - 1 .2 mg/dL [facility] Calcium [Mass/Vol] 8.8 mg/dL 8.6 - 10. 3 mg/dL [facility] Chloride [Moles/Vol] 109 mmol/L High 98 - 10 7 mmol/L [facility] CO2 [Moles/Vol] 23 mmol/L 21 - 32 mmol/L [facility] Creatinine [Mass/Vol] 0.81 mg/dL 0.50 - 1.30 mg/dL [facility] GFR/1.73 sq M.predicted among non-blacks MDRD (S/P/Bld) [Vol rate/Area] 90 mL/min/{1.73_m2} - PINF [facility] Comment on above: Calculations of fabiano mated GFR are performed using the 2020 CKD-EPI Study Refit equation without the race variable for the IDMS-Traceable creatinine methods. https://jasn.asnjournals.org/content//ASN.616054 7728 Glucose [Mass/Vol] 147 mg/dL High 74 - 99 mg/dL [facility] Interpretation and review of laboratory results Abnormal [facility] Potassium [Moles/Vol] 3.8 mmol/L 3.5 - 5.3 mmol/L [facility] Protein [Mass/Vol] 7.1 g/dL 6.4 - 8.2 g/dL [facility] Sodium [Moles/Vol] 141 mmol/L 136 - 145 mmol/L [facility] Urea nitrogen [Mass/Vol] 21 mg/dL 6 - 23 mg/dL [facility] Albumin BCP dye [Mass/Vol] 3.6 g/dL Normal 3.4-5.0 [facility] Comment on above: Performed By: #### 2 432-8 #### VINNY AVILEZ ([id number]) [facility] ([facility]) [address] [place] [address] ALP [Catalytic activity/Vol] 117 U/L Normal 33-136 [facility] Comment on above: Performed By: #### 2 432-8 #### VINNY AVILEZ ([id number]) [facility] ([facility]) [address] [place] [address] 07880 ALT With P-5'-P [Catalytic activity/Vol] 11 U/L Normal 10-52 [facility] Comment on above: Result Comment: Myla ents treated with Sulfasalazine may generate falsely decreased results for ALT. Performed By: #### 2 4322-8 #### VINNY AVILEZ ([id number]) [facility] ([facility]) [address] [place] [address] 55312 Anion gap [Moles/Vol] 13 mmol/L Normal 10-20 [facility] Comment on above: Performed By: #### 2 4322-8 #### VINNY AVILEZ ([id number]) [facility] ([facility]) [address] [place] [address] 55190 AST With P-5'-P [Catalytic activity/Vol] 11 U/L Normal 9-39 [facility] Comment on above: Performed By: #### 2 4322-8 #### VINNY AVILEZ ([id number]) [facility] ([facility]) [address] [place] [address] 13566 Bilirubin [Mass/Vol] 0.8 mg/dL Normal 0.0-1.2 [facility] Comment on above: Performed By: #### 2 432-8 #### VINNY AIVLEZ ([id number]) [facility] ([facility]) [facility] [place] [address] Calcium [Mass/Vol] 8.8 mg/dL Normal 8.6-10.3 [facility] Comment on above: Performed By: #### 2 4323-8 #### VINNY AVILEZ ([id number]) [facility] ([facility]) [address] [place] [address] Chloride [Moles/Vol] 109 mmol/L High 98-107 [facility] Comment on above: Performed By: #### 2 4323-8 #### VINNY AVILEZ ([id number]) [facility] ([facility]) [facility] [place] [address] CO2 [Moles/Vol] 23 mmol/L Normal 21-32 [facility] Comment on above: Performed By: #### 2 4323-8 #### VINNY AVILEZ ([id number]) [facility] ([facility]) [address] [place] [address] 56580 Creatinine [Mass/Vol] 0.81 mg/dL Normal 0.50-1.30 [facility] Comment on above: Performed By: #### 2 4323-8 #### VINNY AVILEZ ([id number]) [facility] ([facility]) [address] [place] [address] 56134 Glomerular filtration rate/1.73 sq M.predicted 90 mL/min/1.73m*2 Normal >60 [facility] Comment on above: Result Comment: Calc ulations of estimated GFR are performed using the 2020 CKD-EPI Study Refit equation without the race variable for the IDMS-Traceable creatinine methods. https://jasn.asnjournals.org/content//ASN.211869 9672 Performed By: #### 2 4323-8 #### VINNY AVILEZ ([id number]) [facility] ([facility]) [facility] [place] [address] Glucose [Mass/Vol] 147 mg/dL High 74-99 [facility] Comment on above: Performed By: #### 2 4323-8 #### VINNY AVILEZ ([id number]) [facility] ([facility]) [facility] [place] [address] Potassium [Moles/Vol] 3.8 mmol/L Normal 3.5-5.3 [facility] Comment on above: Performed By: #### 2 4323-8 #### VINNY AVILEZ ([id number]) [facility] ([facility]) [address] [place] [address] Protein [Mass/Vol] 7.1 g/dL Normal 6.4-8.2 [facility] Comment on above: Performed By: #### 2 4323-8 #### VINNY AVILEZ ([id number]) [facility] ([facility]) [address] [place] [address] Sodium [Moles/Vol] 141 mmol/L Normal 136-145 [facility] Comment on above: Performed By: #### 2 4323-8 #### VINNY AVILEZ ([id number]) [facility] ([facility]) [address] [place] [address] Urea nitrogen [Mass/Vol] 21 mg/dL Normal 6-23 [facility] Comment on above: Performed By: #### 2 4323-8 #### VINNY AVILEZ ([id number]) [facility] ([facility]) [facility] [place] [address] D-Dimer, Quantitative Non VT Leighton 05-15-2023 Fibrin D-dimer FEU (PPP) [Mass/Vol] 1709 [facility] ECG 12-LEADon 05-15-2023 ECG 12-LEAD Ventricular Rate 65 QRS Duration 92 Q-T Interval 400 QTC Calculation(Bazett) 416 R Hermitage -37 T Hermitage 116 QRS Count 11 Q Onset 217 T Offset 417 QTC Fredericia 410 Diagnosis Atrial fibrillation with premature ventricular or aberrantly conducted complexes Left axis deviation Inferior infarct (cited on or before 15-MAY-2023) Anteroseptal infarct (cited on or before 15-MAY-2023) Abnormal ECG When compared with ECG of 15-MAY-2023 16:00, (unconfirmed) Anterior leads See ED provider note for full interpretation and clinical correlation Confirmed by Az Liu ([id number]) on 05/17/2023 5:44:02 PM Normal [facility] FLUAV and FLUBV RNA FAMILIA+prob e Nom (Unsp spec)on 05-15-2023 FLUAV RNA FAMILIA+probe Ql (Resp) Not detected Not Detected [facility] FLUBV RNA FAMILIA+probe Ql (Resp) Not detected Not Detected [facility] This assay is an in vitro diagnostic multiplex nucleic acid amplification test for the detection and discrimination of Influenza A & B from nasopharyngeal specimens, and has been validated for use at [facility]. Negative results do not preclude Influenza A/B infections, and should not be used as the sole basis for diagnosis, treatment, or other management decisions. If Influenza A/B and RSV PCR results are negative, testing for Parainfluenza virus, Adenovirus and Metapneumovirus is routinely performed for [facility] [place] and intensive care inpatients, and is available on other patients by placing an add-on request. [facility] FLUAV RNA FAMILIA+probe Ql (Resp) Not detected Normal Not Detected [facility] Comment on above: Order Comment: This assay is an in vitro diagnostic multiplex nucleic acid amplification test for the detection and discrimination of Influenza A & B from nasopharyngeal specimens, and has been validated for use at [facility]. Negative results do not preclude Influenza A/B infections, and should not be used as the sole basis for diagnosis, treatment, or other management decisions. If Influenza A/B and RSV PCR results are negative, testing for Parainfluenza virus, Adenovirus and Metapneumovirus is routinely performed for [facility] [place] and intensive care in[place], and is available on other patients by placing an add-on request. Performed By: #### 4 8509-4 #### CASILLAS RAGHAV ([id number]) [facility] ([facility]) [address] [place] [address] FLUBV RNA FAMILIA+probe Ql (Resp) Not detected Normal Not Detected [facility] Comment on above: Order Comment: This assay is an in vitro diagnostic multiplex nucleic acid amplification test for the detection and discrimination of Influenza A & B from nasopharyngeal specimens, and has been validated for use at [facility]. Negative results do not preclude Influenza A/B infections, and should not be used as the sole basis for diagnosis, treatment, or other management decisions. If Influenza A/B and RSV PCR results are negative, testing for Parainfluenza virus, Adenovirus and Metapneumovirus is routinely performed for [facility] [place] in[place], and is available on other patients by placing an add-on request. Performed By: #### 4 8509-4 #### VINNY AVILEZ ([id number]) [facility] ([facility]) [address] [place] [address] 56801 Fibrin D-dimer FEUon 024 Fibrin D-dimer FEU (PPP) [Mass/Vol] 1709 ng/mL FEU High <=500 [facility] Comment on above: Order Comment: The D -Dimer assay is reported in ng/mL Fibrinogen Equivalent Units (FEU). The results of this assay should NOT be used for the exclusion of Deep Vein Thrombosis and/or Pulmonary Embolism. Performed By: #### 4 8065-7 #### VINNY AVILEZ ([id number]) [facility] ([facility]) [address] [place] [address] 00558 Fibrin D-dimer FEU (PPP) [Ma ss/Vol]on 05-15-2023 The D-Dimer assay is reported in ng/mL Fibrinogen Equivalent Units (FEU). The results of this assay should NOT be used for the exclusion of Deep Vein Thrombosis and/or Pulmonary Embolism. [facility] Lactateon 05-15-2023 Lactate [Moles/Vol] 1.1 mmol/L 0.4 - 2. 0 mmol/L [facility] Lactate [Moles/Vol] 1.1 mmol/L Normal 0.4-2.0 [facility] Comment on above: Order Comment: Venip uncture immediately after or during the administration of Metamizole may lead to falsely low results. Testing should be performed immediately prior to Metamizole dosing. Performed By: #### 2 524-7 #### VINNY AVILEZ ([id number]) [facility] ([facility]) [address] [place] [address] 24323 Lactate [Moles/Vol]on 2023 Interpretation and review of laboratory results Normal [facility] Venipuncture immediately after or during the administration of Metamizole may lead to falsely low results. Testing should be performed immediately prior to Metamizole dosing. [facility] Natriuretic peptide B [Mass/ Vol]on 05-15-2023 Interpretation and review of laboratory results Abnormal [facility] Natriuretic peptide B (Bld) [Mass/Vol] 618 pg/mL High 0 - 99 pg/mL [facility] <100 pg/mL - Heart failure unlikely 100-299 pg/mL - Intermediate probability of acute heart failure exacerbation. Correlate with clinical context and patient history. >=300 pg/mL - Heart Failure likely. Correlate with clinical context and patient history. BNP testing is performed using different testing methodology at [facility] than at other [facility]. Direct result comparisons should only be made within the same method. [facility] Natriuretic peptide B (Bld) [Mass/Vol] 618 pg/mL High 0-99 [facility] Comment on above: Order Comment: <100 pg/mL - Heart failure unlikely 100-299 pg/mL - Intermediate probability of acute heart failure exacerbation. Correlate with clinical context and patient history. >=300 pg/mL - Heart Failure likely. Correlate with clinical context and patient history. BNP testing is performed using different testing methodology at [facility] than at [facility]. Direct result comparisons should only be made within the same method. Performed By: #### 3 0934-4 #### VINNY AVILEZ ([id number]) [facility] ([facility]) [address] [place] [address] No Panel Informationon 05-14 Interpretation and review of laboratory results Normal [facility] Interpretation and review of laboratory results Abnormal [facility] PT Coag (PPP) [Time]on 05-14 INR Coag (PPP) [Relative time] 1.4 {INR} High 0.9 - 1.1 [facility] INR Coag (PPP) [Relative time] 1.4 High 0.9-1.1 [facility] Comment on above: Performed By: #### 5 902-2 #### VINNY AVILEZ ([id number]) [facility] ([facility]) [address] [place] [address] Protime-INRon 05-15-2023 PT Coag (PPP) [Time] 15.7 s [facility] SARS coronavirus 2 RNAon SARS-CoV-2 (COVID-19) RNA FAMILIA+probe Ql (Resp) Not detected Normal Not Detected [facility] Comment on above: Order Comment: This assay has received FDA Emergency Use Authorization (EUA) and is only authorized for the duration of time that circumstances exist to justify the authorization of the emergency use of in vitro diagnostic tests for the detection of SARS-CoV-2 virus and/or diagnosis of COVID-19 infection under section 564(b)(1) of the Act, 21 U.S.C. 360bbb-3(b)(1). This assay is an in vitro diagnostic nucleic acid amplification test for the qualitative detection of SARS-CoV-2 from nasopharyngeal specimens and has been validated for use at [facility]. Negative results do not preclude COVID-19 infections and should not be used as the sole basis for diagnosis, treatment, or other management decisions. Performed By: #### 9 4500-6 ####CASILLAS RAGHAV ([id number])[facility] ([facility])[address] [place] [address] SARS-CoV-2 (COVID-19) RNA NA A+probe Ql (Resp)on 05-15-2023 This assay has recei rashawn FDA Emergency Use Authorization (EUA) and is only authorized for the duration of time that circumstances exist to justify the authorization of the emergency use of in vitro diagnostic tests for the detection of SARS-CoV-2 virus and/or diagnosis of COVID-19 infection under section 564(b)(1) of the Act, 21 U.S.C. 360bbb-3(b)(1). This assay is an in vitro diagnostic nucleic acid amplification test for the qualitative detection of SARS-CoV-2 from nasopharyngeal specimens and has been validated for use at [facility]. Negative results do not preclude COVID-19 infections and should not be used as the sole basis for diagnosis, treatment, or other management decisions. [facility] Sars-CoV-2 PCRon 05-15-2023 SARS-CoV-2 (COVID-19) RNA FAMILIA+probe Ql (Resp) Not detected Not Detected [facility] Tropinin I.cardiac panel Hig h sensitivity methodon 03-14-2024 Interpretation and review of laboratory results Abnormal [facility] Less than 99th percentile of normal range cutoff- Female and children under 18 years old <14 ng/L; Male <21 ng/L: Negative Repeat testing should be performed if clinically indicated. Female and children under 18 years old 14-50 ng/L; Male 21-50 ng/L: Consistent with possible cardiac damage and possible increased clinical risk. Serial measurements may help to assess extent of myocardial damage. >50 ng/L: Consistent with cardiac damage, increased clinical risk and myocardial infarction. Serial measurements may help assess extent of myocardial damage. NOTE: Children less than 1 year old may have higher baseline troponin levels and results should be interpreted in conjunction with the overall clinical context. NOTE: Troponin I testing is performed using a different testing methodology at [facility] than at [facility]. Direct result comparisons should only be made within the same method. [facility] Troponin I, High Sensitivity on 05-15-2023 Tropinin I.cardiac panel High sensitivity method 24 ng/L High 0 - 20 ng/L [facility] Troponin I.cardiac panelon 0 05-15-2023 Tropinin I.cardiac panel High sensitivity method 24 ng/L High 0-20 [facility] Comment on above: Order Comment: Less than 99th percentile of normal range cutoff- Female and children under 18 years old <14 ng/L; Male <21 ng/L: Negative Repeat testing should be performed if clinically indicated. Female and children under 18 years old 14-50 ng/L; Male 21-50 ng/L: Consistent with possible cardiac damage and possible increased clinical risk. Serial measurements may help to assess extent of myocardial damage. >50 ng/L: Consistent with cardiac damage, increased clinical risk and myocardial infarction. Serial measurements may help assess extent of myocardial damage. NOTE: Children less than 1 year old may have higher baseline troponin levels and results should be interpreted in conjunction with the overall clinical context. NOTE: Troponin I testing is performed using a different testing methodology at [facility] than at [facility]. Direct result comparisons should only be made within the same method. Performed By: #### 8 9577-1 #### CASILLAS RAGHAV ([id number]) [facility] ([facility]) [address] [place] [address] Urinalysis complete W Reflex Culture panel (U)on 05-15-2023 Appearance (U) Clear Clear [facility] Bilirubin (U) [Mass/Vol] Negative NEGATIVE [facility] Color (U) Colorless Abnormal Straw, Yellow [facility] Glucose Auto test strip (U) [Mass/Vol] Negative NEGATIVE mg/dL [facility] Interpretation and review of laboratory results Abnormal [facility] Interpretation and review of laboratory results Normal [facility] Ketones (U) [Mass/Vol] Negative NEGATIVE mg/dL [facility] Leukocyte esterase Auto test strip Ql (U) Negative NEGATIVE [facility] Nitrite Auto test strip Ql (U) Negative NEGATIVE [facility] pH (U) 6.0 [pH] 5.0, 5.5, 6.0, 6.5, 7.0, 7.5, 8.0 [facility] Protein (U) [Mass/Vol] 30 (1+) Abnormal NEGATIVE mg/dL [facility] RBC (U) [#/Vol] Negative NEGATIVE [facility] RBC Auto (Urine sed) [#/Area] 1-2 NONE, 1-2, 3-5 /HPF [facility] Specific gravity (U) [Rel density] 1.011 1.005 - 1.035 [facility] Urobilinogen (U) [Mass/Vol] mg/dL NINF - 2.0 mg/dL [facility] WBC Auto (Urine sed) [#/Area] NONE 1-5, NONE /HPF [facility] Appearance (U) Clear Normal Clear [facility] Comment on above: Performed By: #### 5 8077-9 ####VINNY AVILEZ ([id number])[facility] ([facility])[address] [place] [address]67 Bilirubin (U) [Mass/Vol] Negative Normal NEGATIVE [facility] Comment on above: Performed By: #### 5 8077-9 ####VINNY AVILEZ ([id number])[facility] ([facility])[address] [place] [address] 26420 Color (U) Colorless Normal Straw, Yellow [facility] Comment on above: Performed By: #### 5 8077-9 ####VINNY AVILEZ ([id number])[facility] ([facility])[address] [place], [place] [address] Glucose Auto test strip (U) [Mass/Vol] Negative Normal NEGATIVE [facility] Comment on above: Performed By: #### 5 8077-9 ####VINNY AVILEZ ([id number])[facility] ([facility])[address] [place], [place] [address] Ketones (U) [Mass/Vol] Negative Normal NEGATIVE [facility] Comment on above: Performed By: #### 5 8077-9 ####VINNY AVILEZ ([id number])[facility] ([facility])[address] [place] [address] Leukocyte esterase Auto test strip Ql (U) Negative Normal NEGATIVE [facility] Comment on above: Performed By: #### 5 8077-9 ####VINNY AVILEZ ([id number])[facility] ([facility])[address] [place] [address] Nitrite Auto test strip Ql (U) Negative Normal NEGATIVE [facility] Comment on above: Performed By: #### 5 8077-9 ####VINNY AVILEZ ([id number])[facility] ([facility])[address] [place], [place] [address] pH (U) 6.0 [pH] Normal 5.0, 5.5, 6.0, 6.5, 7.0, 7.5, 8.0 [facility] Comment on above: Performed By: #### 5 8077-9 ####VINNY AVILEZ ([id number])[facility] ([facility])[address] [place] [address]326 Protein (U) [Mass/Vol] 30 (1+) Normal NEGATIVE [facility] Comment on above: Performed By: #### 5 8077-9 ####VINNY AVILEZ ([id number])[facility] ([facility])[address] [place] [address] 14964 RBC (U) [#/Vol] Negative Normal NEGATIVE [facility] Comment on above: Performed By: #### 5 8077-9 ####VINNY AVILEZ ([id number])[facility] ([facility])[address] [place] [address] 43094 RBC Auto (Urine sed) [#/Area] 1-2 Normal NONE, 1-2, 3-5 [facility] Comment on above: Performed By: #### 5 8077-9 ####VINNY AVILEZ ([id number])[facility] ([facility])[address] [place], [place] [address] Specific gravity (U) [Rel density] 1.011 Normal 1.005-1.035 [facility] Comment on above: Performed By: #### 5 8077-9 ####VINNY AVILEZ ([id number])[facility] ([facility])[address] [place] [address] Urobilinogen (U) [Mass/Vol] mg/dL Normal <2.0 [facility] Comment on above: Performed By: #### 5 8077-9 ####VINNY AVILEZ ([id number])[facility] ([facility])[address] [place] [address]8823 WBC Auto (Urine sed) [#/Area] NONE Normal 1-5, NONE [facility] Comment on above: Performed By: #### 5 8077-9 ####VINNY AVILEZ ([id number])[facility] ([facility])[address] [place], [place] [address] XR CHEST 1 VIEWon 05-15-2023 XR CHEST 1 VIEW Interpreted By: Kamini Crawford, STUDY: XR CHEST 1 VIEW; 05/15/2023 4:19 pm INDICATION: CLINICAL INFORMATION: Signs/Symptoms:dyspnea. COMPARISON: None ACCESSION NUMBER(S): [id number] ORDERING CLINICIAN: [place] LIU TECHNIQUE: Portable chest one view. FINDINGS: The cardiac size is indeterminate in view of the AP projection. 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 A device overlying the left side of the mediastinum is thought to represent a left atrial appendage clip. There are diffuse hazy alveolar infiltrates present bilaterally along with moderate-sized bilateral effusions, more marked on the right. IMPRESSION: Postsurgical appearance of the chest. Bilateral infiltrates and effusions. Infiltrates and effusions raises the possibility of pulmonary edema and CHF. Follow-up to assure complete clearing is suggested. MACRO: none Signed by: Kamini Crawford 05/15/2023 4:47 PM Dictation workstation: [id number] [facility] XR Chest Single viewon 05-14 Postsurgical appeara nce of the chest. Bilateral infiltrates and effusions. Infiltrates and effusions raises the possibility of pulmonary edema and CHF. Follow-up to assure complete clearing is suggested. MACRO: none Signed by: Kamini Crawford 05/15/2023 4:47 PM Dictation workstation: [id number] Interpreted By: Kamini Crawford, STUDY: XR CHEST 1 VIEW; 05/15/2023 4:19 pm INDICATION: CLINICAL INFORMATION: Signs/Symptoms:dyspnea. COMPARISON: None ACCESSION NUMBER(S): [id number] ORDERING CLINICIAN: [place] LIU TECHNIQUE: Portable chest one view. FINDINGS: The cardiac size is indeterminate in view of the AP projection. 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 A device overlying the left side of the mediastinum is thought to represent a left atrial appendage clip. There are diffuse hazy alveolar infiltrates present bilaterally along with moderate-sized bilateral effusions, more marked on the right. [facility] MMODAL Kamini Crawford MD - 05/15/2023 Interpreted By: Kamini Crawford, STUDY: XR CHEST 1 VIEW; 05/15/2023 4:19 pm INDICATION: CLINICAL INFORMATION: Signs/Symptoms:dyspnea. COMPARISON: None ACCESSION NUMBER(S): [id number] ORDERING CLINICIAN: [place] LIU TECHNIQUE: Portable chest one view. FINDINGS: The cardiac size is indeterminate in view of the AP projection. 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 A device overlying the left side of the mediastinum is thought to represent a left atrial appendage clip. There are diffuse hazy alveolar infiltrates present bilaterally along with moderate-sized bilateral effusions, more marked on the right. IMPRESSION: Postsurgical appearance of the chest. Bilateral infiltrates and effusions. Infiltrates and effusions raises the possibility of pulmonary edema and CHF. Follow-up to assure complete clearing is suggested. MACRO: none Signed by: Kamini Crawford 05/15/2023 4:47 PM Dictation workstation: [id number] [facility] Work Phone: Radiology Study observation (narrative) [facility] Work Phone: XR Chest Single viewOrdered By: Kamini Crawford on 05-15-2023 [facility] Work Phone: aPTTon 05-15-2023 aPTT Coag (PPP) [Time] 36 s [facility] aPTT Coag (PPP) [Time]on Interpretation and review of laboratory results Normal [facility] The APTT is no longe r used for monitoring Unfractionated Heparin Therapy. For monitoring Heparin Therapy, use the Heparin Assay. [facility] 36on 05-12-2023 36 Surgery is approved Surg 06/05 PAT 05/29 12:30 PO 06/22 1 Case# [id number] Packet will be mailed to patient Left with direct # for cb 36on 05-09-[address] Екатерина lozano te, he stated that this was going to be done outpatient and they patient and family are both under the impression that they will be in and out same day 36 Is this outpatient o r outpatient bedded? [place] [id number] 04-15-2023 36 Pt's son called he's still in the hospital and he will call back to reschedule. [place] [address]on 04-08-2023 36 Spoke to son and he wants to keep surgery date for right now. He stated once he finds out more he will back and if they need to move it he will at that time. No auth was required for surgery. 36 Pt son left another , requesting call back [place] [address]on 04-07-2023 36 Pt's son LM stating he fell and is in hospital and is wanting to reschedule? Call back provided. 36 Message released to patient as written. Patient's further questions if applicable: Donal states she would like to inform the office the patient's JIGAR note was never received today, 04/07/23. Donla states she would like to have the patient's note refaxed to fax number: [phone]. Donal states she will keep an eye out for the document to be received. Please contact Donal and advise. Were all questions from office addressed or relayed to the patient from encounter: Yes 36 Note faxed. 36on 04-04-2023 36 Name of caller: Court dolan Contact phone number: [phone] Relationship to Patient: [facility] Provider: екатерина Practice: neuro Chief Complaint/Reason for Call: donal is calling in stating that they are needing the office visit notes from when the patient seen the provider on 03/31/23 for the incision check. if the office could fax them over to [phone] please advise and thank you Best time of day caller can be reached: any Patient advised that office/PCP has 24-48 business hours to return their call: Yes 36on 04-01-2023 36 Surgery: 04/25/23 @73 0 PAT: 04/18/23 @730 PO: 05/07/23 @9 Case #[id number] Spoke to pt's son and made him aware no further questions. 36on 03-31-2023 36 [place] [address]. Auth was submitted. 36 Sent a message to Enrrique Al for cpt codes for surgery. Will submit once I hear back. Office Visiton 03-31-2023 Follow-up visit [id number] Ada June 1945 M Date Provider Department Center 03/31/2023 [id number] [facility] None No family history on file Level of Service:36358 SC OFFICE/OUTPATIENT ESTABLISHED MOD MDM 30 MIN Reason for Visit and Comments: Post-op [483] - Incision check Progress Noteon 03-31-2023 Progress Note NEUROSURGERY and SPI NE POST-OP NOTE Patient Name: Ada June Patient : 1945 PCP: Jenelle Oconnell MD History of Present Ilness: Patient is post-op bilateral bur hole performed 01/07/23. He was reported by his health nurse that he is having delayed healing at the incision site; bluish metal plate is exposed. He reports that he has had no fevers, there has been minimal drainage from the incision site. The incision area of question is the right sided posterior incision for [place] hole. His son reports that he was placed on a course of antibiotics which she has completed. He thinks that this was Keflex. They are also reporting mupirocin ointment over the wound as well. Past Medical History: History reviewed. No pertinent past medical history. Past Surgical History: History reviewed. No pertinent surgical history. Home Medications: Prior to Admission medications Medication Sig Start Date End Date Taking? Authorizing Provider acetaminophen (Tylenol) 500 MG tablet Take 2 tablets (1,000 mg) by mouth in the morning and 2 tablets (1,000 mg) at noon and 2 tablets (1,000 mg) before bedtime. Do all this for 10 days. 01/15/23 01/25/23 Katya Oliver PA-C amLODIPine (Norvasc) 10 MG tablet Take 1 tablet (10 mg) by mouth daily. 01/15/23 02/14/23 Katya Oliver PA-C amLODIPine (Norvasc) 5 MG tablet Take 5 mg by mouth daily. Historical Provider, atorvastatin (Lipitor) 20 MG tablet Take 20 mg by mouth daily. Historical Provider, enoxaparin (Lovenox) 30 MG/0.3ML solution prefilled syringe Inject 0.3 mL (30 mg) under the skin in the morning and 0.3 mL (30 mg) in the evening. While in facility. 01/15/23 02/14/23 Katya Oliver PA-C melatonin 3 MG tablet Take 1 tablet (3 mg) by mouth Nightly. 01/15/23 02/14/23 Katya Oliver PA-C omeprazole (PriLOSEC) [address] capsule Take 20 mg by mouth daily. Do not crush or chew. Historical Provider, ondansetron ODT (Zofran-ODT) 4 MG disintegrating tablet Take 1 tablet (4 mg) by mouth every 8 hours as needed for nausea or vomiting for up to 7 days. 01/15/23 01/22/23 Katya Oliver PA-C oxyCODONE (Roxicodone) 5 MG immediate release tablet Take 0.5-1 tablets (2.5-5 mg) by mouth every 6 hours as needed for moderate pain (4-6) or severe pain (7-10) (pain) for up to 7 days. 01/15/23 01/22/23 Katya Oliver PA-C polyethylene glycol, PEG, 3350 (Miralax) 17 g packet Take 17 g by mouth Daily as needed (constipation) for up to 10 days. 01/15/23 01/25/23 Katya Oliver PA-C QUEtiapine (SEROquel) 25 MG tablet Take 0.5 tablets (12.5 mg) by mouth 2 times daily as needed (first line for agitation) for up to 10 days. 01/15/23 01/25/23 Katya Oliver PA-C QUEtiapine (SEROquel) 50 MG tablet Take 1 tablet (50 mg) by mouth Nightly. 01/15/23 02/14/23 Katya Oliver PA-C sennosides (Senokot) 8.6 MG tablet Take 1 tablet (8.6 mg) by mouth Nightly. 01/15/23 02/14/23 Katya Oliver PA-C spironolactone (Aldactone) 25 MG tablet Take 25 mg by mouth daily. Historical Provider, tamsulosin (Flomax) 0.4 MG 24 hr capsule Take 1 capsule (0.4 mg) by mouth daily. 01/15/23 Katya Oliver PA-C Allergies: Patient has no known allergies. Social History: TOBACCO: reports that he quit smoking about 15 years ago. His smoking use included cigarettes. He does not have any smokeless tobacco history on file. ETOH: reports that he does not currently use alcohol. RECREATIONAL DRUG USE: Social History Substance and Sexual Activity Drug Use Not Currently Family History: No family history on file. Review of Systems: Review of Systems Constitutional: Negative. HENT: Negative. Eyes: Negative. Respiratory: Negative. Cardiovascular: Negative. Gastrointestinal: Negative. Endocrine: Negative. Genitourinary: Negative. Musculoskeletal: Negative. Skin: Negative. Neurological: Negative. Psychiatric/Behavioral: Negative. Physical Examination: Vitals: 03/31/23 0930 BP: (!) 169/67 Pulse: (!) 49 Physical Exam Constitutional: Appearance: Normal appearance. HENT: Head: Normocephalic. Comments: Right-sided posterior bur hole incision with scabbing present, edges are not well-approximated. Incision is open with exposed hardware. Eyes: Extraocular Movements: Extraocular movements intact. Pupils: Pupils are equal, round, and reactive to light. Cardiovascular: Rate and Rhythm: Normal rate. Pulmonary: Effort: Pulmonary effort is normal. Abdominal: Palpations: Abdomen is soft. Musculoskeletal: General: Normal range of motion. Cervical back: Normal range of motion and neck supple. Skin: General: Skin is warm and dry. Neurological: General: No focal deficit present. Mental Status: He is alert and oriented to person, place, and time. Cranial Nerves: Cranial nerves 2-12 are intact. Motor: Motor strength is normal. Gait: Gait is intact. Psychiatric: Mood and Affect: Mo (more content not included)... [place] [address]on 03-28-2023 36 Spoke with son and m chaparro appt for Friday. [place] [address] Spoke with Yanira and relayed note. She asked that I bret pt's son, Guilherme, to schedule the appt. I spoke with Guilherme and let him know pt needs to come into the office Friday. He is going to call me back to schedule. [place] [address] Patient needs to com e into the office JENNY; please schedule for Friday. This needs to be seen in office [place] [address] Yanira, a nurse with [facility], JAKOB on staing pt had BILATERAL CRANIOTOMY EVACUATION HEMATOMA SUBDURAL on 01/07. He is having delayed healing in the incisional area. The wound is scabbing over but not healing. She can see a bluish metallic plate with holes in it at the base of the wound. Was hardware placed during surgery? She'd like a call to discuss. She can be reached at [phone]. Ok to JAKOB on as it is a secure line. [place] [address]on 01-24-2023 36 Spoke with Guilherme and relayed note. He verbalized understanding. 36 Pt's son, Guilherme, LM o n VM wanting to know when pt can start taking coumadin again. He can be reached at [phone]. Office Visiton 01-22-2023 Follow-up visit [id number] Ada June 1945 M Date Provider Department Center 01/22/2023 [id number], PAUL W [facility] NROSURG None No family history on file Level of Service:11510 SC POSTOP FOLLOW UP VISIT RELATED TO ORIGINAL PX Reason for Visit and Comments: Post-op [483] - Post Op- Bilateral Crani. Progress Noteon 01-22-2023 Progress Note NEUROSURGERY and SPI NE POST-OP NOTE Patient Name: Ada June Patient : 1945 PCP: Jenelle Oconnell MD /History of Present Ilness: Patient is post-op bilateral bur hole performed ~ 2 weeks ago. He is doing very well, both he and his family feel he is much improved mental status wilburn and neurologically postoperatively. Past Medical History: History reviewed. No pertinent past medical history. Past Surgical History: History reviewed. No pertinent surgical history. Home Medications: Prior to Admission medications Medication Sig Start Date End Date Taking? Authorizing Provider acetaminophen (Tylenol) 500 MG tablet Take 2 tablets (1,000 mg) by mouth in the morning and 2 tablets (1,000 mg) at noon and 2 tablets (1,000 mg) before bedtime. Do all this for 10 days. 01/15/23 01/25/23 Katya Oliver PA-C amLODIPine (Norvasc) 10 MG tablet Take 1 tablet (10 mg) by mouth daily. 01/15/23 02/14/23 Katya Oliver PA-C amLODIPine (Norvasc) 5 MG tablet Take 5 mg by mouth daily. Historical Provider, atorvastatin (Lipitor) 20 MG tablet Take 20 mg by mouth daily. Historical Provider, enoxaparin (Lovenox) 30 MG/0.3ML solution prefilled syringe Inject 0.3 mL (30 mg) under the skin in the morning and 0.3 mL (30 mg) in the evening. While in facility. 01/15/23 02/14/23 Katya Oliver PA-C melatonin 3 MG tablet Take 1 tablet (3 mg) by mouth Nightly. 01/15/23 02/14/23 Katya Oliver PA-C omeprazole (PriLOSEC) [address] capsule Take 20 mg by mouth daily. Do not crush or chew. Historical Provider, ondansetron ODT (Zofran-ODT) 4 MG disintegrating tablet Take 1 tablet (4 mg) by mouth every 8 hours as needed for nausea or vomiting for up to 7 days. 01/15/23 01/22/23 Katya Oliver PA-C oxyCODONE (Roxicodone) 5 MG immediate release tablet Take 0.5-1 tablets (2.5-5 mg) by mouth every 6 hours as needed for moderate pain (4-6) or severe pain (7-10) (pain) for up to 7 days. 01/15/23 01/22/23 Katya Oliver PA-C polyethylene glycol, PEG, 3350 (Miralax) 17 g packet Take 17 g by mouth Daily as needed (constipation) for up to 10 days. 01/15/23 01/25/23 Katya Oliver PA-C QUEtiapine (SEROquel) 25 MG tablet Take 0.5 tablets (12.5 mg) by mouth 2 times daily as needed (first line for agitation) for up to 10 days. 01/15/23 01/25/23 Katya Oliver PA-C QUEtiapine (SEROquel) 50 MG tablet Take 1 tablet (50 mg) by mouth Nightly. 01/15/23 02/14/23 Katya Oliver PA-C sennosides (Senokot) 8.6 MG tablet Take 1 tablet (8.6 mg) by mouth Nightly. 01/15/23 02/14/23 Katya Oliver PA-C spironolactone (Aldactone) 25 MG tablet Take 25 mg by mouth daily. Historical Provider, tamsulosin (Flomax) 0.4 MG 24 hr capsule Take 1 capsule (0.4 mg) by mouth daily. 01/15/23 Katya Oliver PA-C Allergies: Patient has no known allergies. Social History: TOBACCO: reports that he quit smoking about 9 years ago. His smoking use included cigarettes. He does not have any smokeless tobacco history on file. ETOH: reports current alcohol use. RECREATIONAL DRUG USE: Social History Substance and Sexual Activity Drug Use Not Currently Family History: No family history on file. Review of Systems: Review of Systems Physical Examination: Vitals: 01/22/23 1144 BP: (!) 178/72 Pulse: 59 Physical Exam Neurologic Exam Incisions are healing appropriately Results Labs: Last 24hrs No results found for this or any previous visit (from the past 24 hour(s)). Radiology Personal review: Follow-up CT scan of the head on postop day 1 shows an excellent result with good resolution of the bilateral subdural hematomas ASSESSMENT / PLAN : He is status post bilateral bur holes for subdural hematoma. He is progressing as expected. He will continue his home exercise and therapy program. We encouraged him to not pick at his incisions and allow the scab to fall off over time. He can now follow-up with us on an as-needed basis. He and his family are quite pleased with his surgical results. Diagnosis Plan 1. SDH (subdural hematoma) (HCC) [facility] Patient Name: ADA JUNE Date of : 1945 36on 01-20-2023 36 Appointment reschedu led to get sutures out. Directions given to family. 36 Name of caller: Urszula martin Contact phone number: [phone] Relationship to Patient: [facility] Provider: Dr. Willams Practice: Neurosurgery Chief Complaint/Reason for Call: Susanne states that she would like to know if the doctor would like for them to remove the pt oswaldo at their facility. Please call Susanne and advise. Best time of day caller can be reached: Any Patient advised that office/PCP has 24-48 business hours to return their call: No Normal [facility] 36 Called patient back. Left vouce mail with office to call back. Cancelled his appointment for today. Normal [facility] 36 Name of Caller: Kellen tadeo Contact Phone Number: [phone] Reason for Appointment: pt needs to re-schedule his appt please call yareli back to re-schedule Office Name: neurology Medication Refills need, if any: Medication Name: Normal [facility] CARECOORDon 01-15-2023 [facility] Next Site of Care Admission Date: 01/06/2023 10:07 PM Patient Name: ADA JUNE Location: [address] [id number] Date of : 1945 - Placement Information - Referral Type:Fci/SNF - New Referral ID:[id number] Provider Name:[facility] Address 1:[address] Address 2: City:[place] Selection Factors:Patient/Family Choice State:[facility] CAR[facility]OORD Notified patient at bedside of pending dc and cherry picker operator to to [place] [facility]. Permission given to call son Guilherme to notify. Family Communication Number Called: [phone] Name of Designated Family Senior Contract Specialist: Guilherme Relationship to Patient: son Phone Call Outcome: I spoke with the individual listed above. Family Senior Contract Specialist Updated on the Following: Updated on dc to [place] [facility] and cherry picker operator time. on 01-15-2023 IDN The patient is Moderately Stable - Low risk of patient condition declining or worsening The patient's goals for the shift include Remain safe The clinical goals for the shift include stable neuro status Over the shift, the patient did make progress toward the following goals. Barriers to progression include n/a. Recommendations to address these barriers include n/a. Progress Noteon 01-15-2023 Progress Note For billing: Patient found to have b/l acute on subacute SDH. Patient was sitting on side of tub and fell. Home Coumadin was held and patient given Kcentra/Vit k. 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 I personally discussed the review of systems and interviewed the patient along with performing a physical examination. I reviewed the recent events, imaging, labs, vital signs. In addition, I discussed the patient's condition and treatment options with him/her when possible. I have also reviewed and agree with the past medical, family, and social history unless otherwise noted. All of the patient's questions were answered and family updated when appropriate and possible. I performed a physical exam and ROS on the same date of service as above. My findings agree with the above note except for any details corrected below. PLAN: - 77M s/p fall on coumadin w/ bilateral subacute SDH - s/p bilateral bur holes w/ NSGY 01/07 - transferred to floor from SICU 01/10 - cont multimodal pain control as below - issues with agitation/delirium - appreciate geriatric and psych recs..cont seroquel 12.5 BID prn, 50mg nightly, low dose haldol if needed; nightly melatonin - cont home amlodipine - pulmonary toilet, IS - tolerating easy to chew diet - voiding freely, cont home flomax - cont DVT ppx - PT/OT - dc to [facility] today Level of Medical Decision Making: []High [x]Moderate []Low Complexity: Acute, complicated injury (MOD) Multiple stable chronic illnesses (MOD) Risk: Prescription drug management (MOD) Personally Reviewed/Independently interpreted patient's: [x]Epic notes []Radiology studies []Labs []EKG []Ordering tests []Other Discussed/ With: [x]Patient/Family [x]RN []Consultants [x]SW/TCC []Other Total Care Time (combined between TOWERMAN/MELODIEC and myself) throughout the day today was >= 35 minutes (including chart/data review/analysis, care coordination, and eezo-sz-vwij encounter), and was spent discussing/counseling the patient/family regarding the care plan for Ada June. I examined the patient independently. I reviewed relevant data myself and may have also done so in the context of team rounds. A full chart review was performed. Time was spent, Reviewing medical record including recent tests and results Ordering prescription medications/tests and procedures Communicating results to the patient/family/caregive r Counseling/educating the patient/family/caregive r Documenting clinical information the patient's electronic record Coordination of care for the patient Performing a medical appropriate exam and evaluation Ken Carreon MD Trauma, Surgical Critical Care & Acute Care Surgery Division of Trauma Department of Surgery [facility] Daily Trauma Progress Note KAEL 01/15/2023 12:45 PM Admit Date: 01/06/2023 Post Trauma Day 9 Fall Mechanical HPI: 77 yo M s/p fall from standing on coumadin. Fall was unwitnessed, patients son found him in the bathtub after. Patient was noted by family to have AMS over the last couple days. Patient went to OR with NSGY 01/07 for evacuation of bilateral SDH and returned to the SICU after the procedure. 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 PROCEDURES: - Bilateral craniotomy and evacuation of subdural hematoma with NSGY [facility]VI[facility] 24 HOUR EVENTS: - NAEON Consults: IP CONSULT TO NEUROSURGERY IP CONSULT TO PALLIATIVE CARE IP CONSULT TO GERIATRICS IP CONSULT TO CARDIOLOGY IP CONSULT TO SOCIAL WORK IP CONSULT TO PSYCHIATRY MEDICATIONS: Current Facility-Administered Medications: acetaminophen (Tylenol) tablet 1,000 mg, 1,000 mg, Oral, q8h, OTILIA Barber CNP, 1,000 mg at 01/15/23 0836 albuterol (2.5 MG/3ML) 0.083% nebulizer solution 2.5 mg, 2.5 mg, Nebulization, q4h PRN, Adi Ortega MD amLODIPine (Norvasc) tablet 10 mg, 10 mg, Oral, Daily, OTILIA Barber CNP, 10 mg at 01/15/23 0836 atorvastatin (Lipitor) tablet 20 mg, 20 mg, Oral, Daily, Narinder Lane MD, 20 mg at 01/14/232016 enoxaparin (Lovenox) syringe 30 mg, 30 mg, SubCUTAneous, q12h, Amanda Torres APRN - KENIA, 30 mg at 01/15/23999 haloperidol lactate (Haldol) injection 0.5 mg, 0.5 mg, IntraMUSCular, q6h PRN, Martina Rausch (more content not included)... Normal [facility] CARECOORDon 01-14-2023 [facility] Auth received for admission to [facility]. [id number]. Called admissions left message requesting return call. 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 I personally discussed the review of systems and interviewed the patient along with performing a physical examination. I reviewed the recent events, imaging, labs, vital signs. In addition, I discussed the patient's condition and treatment options with him/her when possible. I have also reviewed and agree with the past medical, family, and social history unless otherwise noted. All of the patient's questions were answered and family updated when appropriate and possible. I performed a physical exam and ROS on the same date of service as above. My findings agree with the above note except for any details corrected below. PLAN: - 77M s/p fall on coumadin w/ bilateral subacute SDH - s/p bilateral bur holes w/ NSGY 01/07 - transferred to floor from SICU 01/10 - cont multimodal pain control as below - issues with agitation/delirium - appreciate geriatric and psych recs..cont seroquel 12.5 BID prn, 50mg nightly, low dose haldol if needed; nightly melatonin - cont home amlodipine - pulmonary toilet, IS - [employer] cleared for regular diet - voiding freely, cont home flomax - cont DVT ppx - PT/OT recs for SNF, dispo planning Level of Medical Decision Making: []High [x]Moderate []Low Complexity: Acute, complicated injury (MOD) Multiple stable chronic illnesses (MOD) Risk: Prescription drug management (MOD) Personally Reviewed/Independently interpreted patient's: [x]Epic notes []Radiology studies []Labs []EKG []Ordering tests []Other Discussed/ With: [x]Patient/Family [x]RN []Consultants [x]SW/TCC []Other Total Care Time (combined between TOWERMAN/PA-C and myself) throughout the day today was >= 35 minutes (including chart/data review/analysis, care coordination, and raej-co-agie encounter), and was spent discussing/counseling the patient/family regarding the care plan for Ada June. I examined the patient independently. I reviewed relevant data myself and may have also done so in the context of team rounds. A full chart review was performed. Time was spent, Reviewing medical record including recent tests and results Ordering prescription medications/tests and procedures Communicating results to the patient/family/caregive r Counseling/educating the patient/family/caregive r Documenting clinical information the patient's electronic record Coordination of care for the patient Performing a medical appropriate exam and evaluation Ken Carreon MD Trauma, Surgical Critical Care & Acute Care Surgery Division of Trauma Department of Surgery [facility] Daily Trauma Progress Note KAEL 01/14/2023 11:24 AM Admit Date: 01/06/2023 Post Trauma Day 8 Fall Mechanical HPI: 77 yo M s/p fall from standing on coumadin. Fall was unwitnessed, patients son found him in the bathtub after. Patient was noted by family to have AMS over the last couple days. Patient went to OR with NSGY 01/07 for evacuation of bilateral SDH and returned to the SICU after the procedure. 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 PROCEDURES: - Bilateral craniotomy and evacuation of subdural hematoma with NSGY CHIEF COMPLAINT: Mech fall, delirium PREVIOUS 24 HOUR EVENTS: - [employer] easy to chew - PT/OT: SNF Consults: IP CONSULT TO NEUROSURGERY IP CONSULT TO PALLIATIVE CARE IP CONSULT TO GERIATRICS IP CONSULT TO CARDIOLOGY IP CONSULT TO SOCIAL WORK IP CONSULT TO PSYCHIATRY MEDICATIONS: Current Facility-Administered Medications: acetaminophen (Tylenol) tablet 1,000 mg, 1,000 mg, Oral, q8h, OTILIA Barber CNP, 1,000 mg at 01/14/23932 albuterol (2.5 MG/3ML) 0.083% nebulizer solution 2.5 mg, 2.5 mg, Nebulization, q4h PRN, Adi Ortega MD amLODIPine (Norvasc) tablet 10 mg, 10 mg, Oral, Daily, OTILIA Barber CNP, 10 mg at 01/14/23932 atorvastatin (Lipitor) tablet 20 mg, 20 mg, Oral, Daily, Narinder Lane MD, 20 mg at 01/13/232058 enoxaparin (Lovenox) syringe 30 mg, 30 mg, SubCUTAneous, q12h, OTILIA Barber CNP, 30 mg at 01/14/23932 haloperidol lactate (Haldol) injection 0.5 mg, 0.5 mg, IntraMU (more content not included)... Normal [facility] XR THORACOLUMBAR SPINE 2 VIE WSon 01-14-2023 XR THORACOLUMBAR SPINE 2 VIEWS Patient Name: ADA JUNE : 1945 [facility]#: [id number] Exam Date/Time: 01/13/2023 19:57 Procedure: XR THORACOLUMBAR SPINE 2 VIEWS Ordering Provider: TORRES LESLEY Reason For Exam: Back pain, fall Thoracolumbar SPINE: CLINICAL INDICATION: Back pain, fall TECHNIQUE: AP and lateral views COMPARISON: None. FINDINGS: Imaging was performed of the lower thoracic and upper lumbar spine. Severe L2 vertebral body compression fracture, which is age indeterminant. Multilevel mild degenerative endplate changes. Multilevel bridging ventral osteophytes. Normal sagittal alignment.. Atherosclerotic vascular calcifications. Prosthetic cardiac valves and left atrial appendage clip. Bilateral sacroiliac joint DJD. IMPRESSION: Age-indeterminate severe L2 vertebral body compression fracture. Report Dictated on Electronically Signed By: Ngozi Sheth MD Electronically Signed Date/Time: 01/13/2023 10:09 PM EST 36on 01-13-2023 36 Note written on Friday. I personally handed it to Guilherme and discussed having Mr. June follow up with us in clinic. Closing TE. [address] Kinga martin Friday and she was planning on writing the letter for family. Will forward to Dr Donato for any documentation CARECOORDon 01-13-2023 [facility] [facility] request. Await review and response regarding ability to accept. TCC notified. Progress Noteon 01-13-2023 Progress Note Nutrition Assessment Type and Reason for Visit: Reassess Nutrition Recommendations/Plan: Continue Easy to Chew Diet, as deemed safe and appropriate by [employer] Encourage patient to participate in room service and order well balanced meals Please record % meals consumed in flow-sheet for most accurate nutrient intake assessment. Obtain actual standing scale weight as able for most accurate anthropometric data RDN to continue to monitor weekly: fluid accumulation, weight, skin integrity, trends in lab values, tolerance of diet and ability to meet > 75% estimated needs via PO, improvement in clinical status, discharge planning. Malnutrition Assessment: Malnutrition Status: At risk for malnutrition (Comment) (monitor PO intake and ability to meet needs) Context: Acute Illness Findings of the 6 clinical characteristics of malnutrition: Energy Intake: Mild decrease in energy intake (Comment) (inadeqaute intake x3 days d/t NPO diet order, PO 100% tolerating diet well\) Weight Loss: No significant weight loss Body Fat Loss: Unable to assess Muscle Mass Loss: Unable to assess (observed severe muscle loss on upper extremities, unable to assess if r/t sarcopenia vs malnutrition) Fluid Accumulation: No significant fluid accumulation 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 s/p evacuation of bilateral SDH on 01/07. Post-op has remained stable, transferred from ICU to [facility] on 01/09/23. Met [employer] goals, continues on Easy to Chew diet. Pyschaitry consulted due to family concerns regarding patient ability to make decisions and care for himself, per their assessment: ?does appear to retain capacity for medical decision-making but is in agreement it would be in best interest to designate (son, daughter) HCPOA in the event one is needed during current admission and/or in the future?. Resting in chair at bedside during assessment. Per patient appetite has been intact and eating well. Consumed two scrambled eggs, cottage cheese, and oatmeal for breakfast this morning. Denies: pain, nausea, GI distress, difficulty swallowing. PO 100%. Prior to admit, feels he was doing well at home. Eating well, does endorse ?a hundred pound weight loss since my open heart surgery on July 27, 2021?. Per EMR review, 212# 07/11/21, and 171.7# in January 2022. Patient states his weight has been stable ~165#, weight loss ~15% over the past 18 months. Deferred NFPE at this time, observed severe sites of muscle loss, on upper body- cannot assess if r/t sarcopenia vs malnutrition as he endorses a good appetite. Estimated Daily Nutrient Needs: Energy Requirements Based On: Kcal/kg Weight Used for Energy Requirements: Admission Weight for Energy Calculation (kg): 77.9 kg Total Energy Requirements (kcals/day): 5541-8446 kcal/day (25-30 kcal/kg) Weight Used for Protein Requirements: Admission Weight in Kg Used for Protein Requirements: 77.9 kg Estimated Total Protein (g/day): 94-101 gm protein/day (1.2-1.3 gm protein/kg) Estimated Daily Total Fluid (ml/day): per MD Nutrition Related Findings: +I/O balance. PO 100% +bm and bowel sounds. Meds and labs reviewed. Tristen score=20 +trace BUE and +nonpitting BLE edema noted. Wound Type: Surgical Incision (bilateral scalp) Current Nutrition Therapies: Adult diet Easy to Chew Current Oral Intake Average Meal Intake: 76-100% Average Supplements Intake: None Ordered Anthropometric Measures: Height: 190.5 cm (6' 3 ) Current Body Weight: 81.6 kg (179 lb 14.3 oz) Admission Body Weight: 76 kg (167 lb 8.8 oz) Usual Body Weight: 91.2 kg (201 lb) (per EPIC: 12/28- 174#, 12/02- 173.6#, 08/01- 163#, 06/22- 194#, 06/14- 200#, 01/23/22- 201#, 12/03/21- 180.7#) % Weight Change (Calculated): -10.5 [place] Body Weight (lbs) (Calculated): 196 lbs [place] Body Weight (Kg) (Calculated): 89 kg % [place] Body Weight (Calculated): 91.8 % BMI (kg/m2) (Calculated): 22.5 Weight Adjustment For: No Adjustment BMI Categories: Normal Weight (BMI 22.0 to 24.9) age over 65 Nutrition Diagnosis: Increased nutrient needs related to cognitive or neurological impairment, acute injury/trauma as evidenced by (acute post op period, s/p evacuation of bilateral SDH on 01/07) Nutrition Interventions: Nutrition Education/Counseling: Education not indicated Coordination of Nutrition Care: Continue to monitor while inpatient Plan of Care discussed with: patient Goals: Previous Goal Met: Progressing toward Goal(s) Goals: prior to discharge, PO intake 75% or greater Nutrition Monitoring and Evaluation: Behavioral-Environmenta l Outcomes: None Identified Food/Nutrient Intake Outcomes: Food and Nutrient Intake Physical Signs/Symptoms Outcomes: Biochemical Data, Chewing or Swallowing, GI Status, Nausea or Vomiting, Skin, Weight, Nutrition Focused Physical Findings, Meal Time Behavior, Hemodynamic Status, Fluid Status (more content not included)... Normal [facility] Progress Note OCCUPATIONAL THERAPY [facility] Treatment Note Name/MRN: Ada June ([id number]) Date of : 1945 Age: 77 y.o. Room/Bed: N3-360/N3-360 A Discharge Recommendation: Inpatient Rehab Equipment Needed: TBD at next level of care Prior Level of Function ADL Assistance: Independent Ambulation Assistance: Independent Transfer Assistance: Independent Assessment Pt. Making progress but lives alone, fatigues quickly with poor safety awareness noted when using FWW. OT recommend SNF at discharge. Subjective Pt. Sitting in his recliner, Just got done talking with someone, denies pain, agreeable to OT Medical Precautions: No active isolations Proper PPE donned/doffed in accordance with facility standards. Fall Risk: Shin Fall Risk Score: 85 (High Risk) Precautions/Restriction s: Seizure Precautions Family/Caregiver Present: none Objective ADLs LE Dressing: Mod Assist DON/Doff socks and pants Transfers/Mobility Sit to stand: Min Assist Stand to sit: Min Assist Stand step: Min Assist Toilet: Min Assist Standing balance: Min Assist Functional mobility: Min Assist Using FWW to from bathroom Device(s) used: TBD at next level of care Plan Continue acute OT per plan of care. Safety/Education Safety Safety Devices in place: All fall risk precautions in place, call light within reach, left in chair, chair alarm in place, gait belt, patient at risk for falls, nurse notified, and no alarms engaged upon entry Restraints: No Education Education Given To: patient Education Provided: OT Role, Plan of Care, ADL Adaptive Strategies, and Transfer Training Education Method: Verbal and Demonstration Barriers to Learning: Cognition Education Outcome: Verbalized Understanding, Demonstrated Understanding, and Continued Education Needed AM-PAC AM-PAC Inpatient Daily Activity Raw Score: 16 ADL Inpatient CMS G-Code Modifier: CK Goals Patient Stated Goal: to get stronger Encounter Problems Encounter Problems (Active) Bathing Patient will bathe body min A (Not Addressed) Start: 01/09/23 Expected End: 02/06/23 Dressings Lower Extremities Patient will dress lower body SBA (Slowly Progressing) Start: 01/09/23 Expected End: 02/06/23 Grooming Patient will complete daily grooming tasks supervision (Slowly Progressing) Start: 01/09/23 Expected End: 02/06/23 Toileting Patient will complete toileting tasks at standard toilet with CGA. (Slowly Progressing) Start: 01/09/23 Expected End: 02/06/23 Transfers Patient will complete functional transfer with least restrictive device with CGA in order to prepare for ambulation. (Slowly Progressing) Start: 01/09/23 Expected End: 02/06/23 Therapy Time Individual Co-treatment Time In 1123 Time Out 1157 Minutes 34 Timed Code Treatment Minutes: 34 Minutes (ther act-2) ALISA Servin Progress Note PHYSICAL THERAPY [facility] Treatment Note Name/MRN: Ada June ([id number]) Date of : 1945 Age: 77 y.o. Room/Bed: N3-360/N3-360 A Discharge Recommendation: SNF Equipment Needed: TBD at next level of care, already owns a rollator Prior Level of Function ADL Assistance: Independent Ambulation Assistance: Independent Transfer Assistance: Independent Assessment Pt has improved with transfers and was able to ambulate today but displays generalized weakness and requires min assist with all functional mobility. Not safe to be home alone. Recommend inpt PT at discharge. Subjective Pt supine in bed with HOB up. Agreeable to PT. Pads soaked in urine on bed due to urinal getting too full while using it in bed. Pain: Pt denies any current pain. Medical Precautions: No active isolations Proper PPE donned/doffed in accordance with facility standards. Fall Risk: Shin Fall Risk Score: 70 (High Risk) Precautions/Restriction s: Seizure Precautions Overall Cognitive Status: WNL Overall Orientation Status: Oriented to Place and Oriented to Person Family/Caregiver Present: none Objective Ambulation Ambulation 1 Assistive device(s) used: front wheeled walker Assist level: Min Assist Distance (ft): 40 ft x 2 Quality of gait: instability through all phases, flexed posture Transfers/Mobility Sit to stand: Min Assist Stand to sit: Min Assist Cues for hand placement Device(s) used: front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 resuscitate de-escalate care because of poor prognosis (HIGH) []Decision regarding elective major surgery with identified patient or procedure risk factors (HIGH) []Decision regarding emergency major surgery (HIGH) []Drug or therapy requiring intensive monitoring (HIGH) []Requires close neuro-critical care monitoring due to risk of neurological deterioration (HIGH) [x]Prescription drug management (MOD) []Decision regarding minor surgery with identified patient or procedure risk factors (MOD) []Decision regarding elective major surgery without limited identified patient or procedure risk factors (MOD) []Diagnosis or treatment significant limited by social determinants of health (MOD) Personally Reviewed/Independently interpreted patient's: [x]Epic notes []Radiology studies []Labs []EKG []Ordering tests []Other Discussed/ With: [x]Patient/Family [x]RN []Consultants []Primary Team [x]SW/TCC []Other Time was spent: -Reviewing the medical record, including recent tests and results -Ordering prescription medications/tests and procedures -Communicating results to the patient/family/caregive r -Counseling/educating the patient/family/caregive r -Documenting clinical information in the patient's electronic record -Co-ordination of care for the patient -Performing a medically appropriate exam and evaluation Lesley Asencio MD, FACS Division of Trauma, Surgical Critical Care, & Acute Care Surgery Department of Surgery [facility] Daily Trauma Progress Note KAEL 01/12/2023 5:43 AM Ad (more content not included)... IDNon 01-11-2023 IDN Problem: Knowledge Deficit Goal: Patient/family/caregive r demonstrates understanding of disease process, treatment plan, medications, and discharge instructions Outcome: Progressing Problem: Potential for Falls Goal: I will remain free of falls Outcome: Progressing Problem: Pain - Adult Goal: Verbalizes/displays adequate comfort level or baseline comfort level Outcome: Progressing Problem: Safety - Adult Goal: Free from fall injury Outcome: Progressing Problem: Chronic Conditions and Co-morbidities Goal: Patient's chronic conditions and co-morbidity symptoms are monitored and maintained or improved Outcome: Progressing Problem: Safety - Non-violent/Interferenc e with Medical Treatment Restraint Goal: Remains free of injury from restraints (Restraint for Interference with Surface Plate Finisher) Outcome: Progressing Goal: Free from restraint(s) (Restraint for Interference with Surface Plate Finisher) Outcome: Progressing Problem: Problem Interventions Goal: Assess Nutritional Intake Outcome: Progressing Problem: Potential for Compromised Skin Integrity Goal: Skin Integrity is Maintained or Improved Outcome: Progressing Goal: Nutritional status is improving Outcome: Progressing Problem: Urinary Incontinence Goal: Perineal skin integrity is maintained or improved Outcome: Progressing The clinical goals for the shift include stable neuro status Progress Noteon 01-11-2023 Progress Note --- Attestation signed by Lesley Asencio MD at 02/04/2023 2:04 PM ~~~~~~~~~~~~~~~~~~~~~~~ ~~~~~~~~~~~~~~~~~~~~~~~ ~~~~~~~~~~~~~~~ ATTENDING ADDENDUM Patient Active Problem List Diagnosis SDH (subdural hematoma) (HCC) Acute metabolic encephalopathy Fall Cognitive impairment Debility Coronary artery disease involving [place] coronary artery of [place] heart Longstanding persistent atrial fibrillation (HCC) 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 I personally discussed the review of systems and interviewed the patient along with performing a physical examination. In addition, I discussed the patient's condition and treatment options with him/her when possible. All of the patient's questions were answered and family updated when appropriate and possible. I I performed a physical exam and ROS on the same date of service as above. My findings agree with the above note except for any details corrected below. Injuries/problem list: -Bilateral acute on chronic SDH -Hypertension -Hyperlipidemia -Agitation -Insomnia -GERD -Urinary retention -Acute pain Surgeries: -Bilateral audie holes 01/07 Management/Plan: Neuro: Acute pain -No requirements Agitation -Continue scheduled seroquel, PRN haldol and PRN seroquel Insomnia -Nightly melatonin Bilateral subdural -Status post audie hole -Appreciate NSG consultation -Continue neuro checks -No anti-seizure medications needed Cardiac: Hx of HTN -Continue amlodipine Hx of HPL -Home atorvaastatin Pulm: -Stable on RA -Pulm toilet, IS FEN/GI: -Advance to easy to chew diet -Bowel regimen with miralax/senna, +BM in last 24 hours : Urinary retention -Continue flomax -Voiding ID: -Stable Heme: -Stable Endo: -Stable MSK: -PT/OT -->SNF Prophylaxis: -Start lovenox Restraints: None Dispo: Floor, pending [facility] Total Care Time throughout the day today was >= 35 minutes (including chart/data review/analysis, care coordination, and [id number] encounter), and was spent discussing/counseling the patient/family regarding the care plan for Ada June. I examined the patient independently. I reviewed relevant data myself and may have also done so in the context of team rounds. A full chart review was performed. Level of Medical Decision Making: []High [x]Moderate []Low Complexity: []Acute or chronic illness/injury posing a threat to life or bodily function without treatment (HIGH) []Chronic illness with severe exacerbation, progression, or side effect of treatment (HIGH) []Chronic illness with mild to moderate exacerbation, progression, or side effect of treatment (MOD) []Previously undiagnosed (new) problem with uncertain prognosis (MOD) []Acute illness with systemic symptoms (MOD) [x]Acute, complicated injury (MOD) []Multiple stable chronic illnesses (MOD) Risk: []Parental controlled substances (HIGH) []Decision resuscitate de-escalate care because of poor prognosis (HIGH) []Decision regarding elective major surgery with identified patient or procedure risk factors (HIGH) []Decision regarding emergency major surgery (HIGH) []Drug or therapy requiring intensive monitoring (HIGH) []Requires close neuro-critical care monitoring due to risk of neurological deterioration (HIGH) [x]Prescription drug management (MOD) []Decision regarding minor surgery with identified patient or procedure risk factors (MOD) []Decision regarding elective major surgery without limited identified patient or procedure risk factors (MOD) []Diagnosis or treatment significant limited by social determinants of health (MOD) Personally Reviewed/Independently interpreted patient's: [x]Epic notes []Radiology studies []Labs []EKG []Ordering tests []Other Discussed/ With: [x]Patient/Family [x]RN []Consultants []Primary Team [x]SW/TCC []Other Time was spent: -Reviewing the medical record, including recent tests and results -Ordering prescription medications/tests and procedures -Communicating results to the patient/family/caregive r -Counseling/educating the patient/family/caregive r -Documenting clinical information in the patient's electronic record -Co-ordination of care for the patient -Performing a medically appropriate exam and evaluation Lesley Asencio MD, FACS Division of Trauma, Surgical Critical Care, & Acute Care Surgery Department of Surgery [facility] Daily Trauma Progress Note KAEL 01/11/2023 6:12 AM Admit Date: 01/06/2023 Post Trauma Day 5 Fall Mechanical HPI: 77 yo M s/p f (more content not included)... 36on 01-10-2023 36 Name of caller: Guilherme Contact phone number: [phone] Relationship to Patient: son Provider: Spoke to Catrina Rodríguez he thinks Practice: [facility] Chief Complaint/Reason for Call: Guilherme called and stated he was given senior services number to call if he had any questions. Guilherme spoke to someone 01/07/23 and he thinks it was Catrina Rodríguez regarding getting a letter for him to take to the [employer] to be able to pay his fathers bills. Guilherme states they will be overdue and he thought a letter would have been mailed. Guilherme states it can be left at the nurses station as he is coming to visit this weekend. Please advise and I did inform him the office closes at 4:30 and normally 24-48 hours to respond. Best time of day caller can be reached: any Patient advised that office/PCP has 24-48 business hours to return their call: Yes IDNon 01-10-2023 IDN Problem: Knowledge Deficit Goal: Patient/family/caregive r demonstrates understanding of disease process, treatment plan, medications, and discharge instructions Outcome: Progressing Problem: Potential for Falls Goal: I will remain free of falls Outcome: Progressing Progress Noteon 01-10-2023 Progress Note Palliative Care Interdisciplinary Team Note: Diagnosis: Principal Problem: SDH (subdural hematoma) (HCC) Active Problems: Acute metabolic encephalopathy Fall Cognitive impairment Debility Coronary artery disease involving [place] coronary artery of [place] heart Longstanding persistent atrial fibrillation (HCC) 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 male with chief complaint of: SDH Reason Palliative Following:Goals of Care Plan:sign off dc to [facility] Code Status: Full Code Medications: Palliative Care Not Managing Any Medications Nursing: Jail Care Social Work: No Unmet Needs Spiritual Care: No Unmet Needs Pharmacy: No Unmet Needs Psychology/Psychiatry: No Unmet Needs Normal [facility] Progress Note Speech-Language Pathology SPEECH LANGUAGE PATHOLOGY [facility] Dysphagia Treatment Note Patient Name: Ada June Evaluation Date: 01/10/2023 Date of : 1945 Admission Date: 01/06/2023 10:07 PM Age: 77 y.o. Room/Bed: N3-360/N3-360 A Subjective Patient alert and cooperative. Seen upright in bedside chair. Answers all basic questions with clear, strong vocal quality. Follows all basic commands. No visitors at bedside. Spoke with RN, Camron, who cleared pt for treatment. Current Diet: Dietary Orders (From admission, onward) Start Ordered 01/09/23932 Adult diet Dysphagia - Soft and Bite Sized Diet effective now Question: Diet type Answer: Dysphagia - Soft and Bite Sized 01/09/23 0932 Aspiration Precautions: - Upright positioning for all PO intake - Small bites/sips - Alternate solid and liquids - Consistent mouth care Oxygen: Oxygen Therapy: None (Room air) Pain: RN managing pain. PPE Worn: surgical mask, gloves Objective & Assessment Activity 1: Diet tolerance Trialed etc/regular consistencies in today's therapy session with observed adequate mastication, no oral residue, no overt s/s of aspiration/penetration, and adequate vocal quality pre/post swallow. Upgrade to easy to chew diet at this time - pt reports he does not wear lower dentures for 10+ years. Plan & Recommendations Plan: Recommend Easy to chew solids and Thin liquids and meds as tolerated and the following precautions: - Upright positioning for all PO intake - Small bites/sips - Alternate solid and liquids D/C Recommendations: to be determined Education Education Given: swallowing strategies, diet recommendations Given To: patient and RN Response: verbalizes understanding Goals Patient Stated Goal: To get better Encounter Problems Encounter Problems (Active) Swallowing Patient will tolerate the least restrictive diet consistency to allow for safe consumption of daily meals (Progressing) Start: 01/09/23 Expected End: 01/23/23 Patient will tolerate recommended food and liquid consistencies without clinical signs and symptoms of aspirations (Progressing) Start: 01/09/23 Expected End: 01/23/23 Encounter Problems (Resolved) Swallowing Patient will participate in repeat clinical dysphagia evaluation (Completed) Start: 01/08/23 Expected End: 01/22/23 Resolved: 01/09/23 Therapy Time [employer] Individual Minutes Time In: 947 Time Out: 957 Minutes: 10 Shanthi Reveles CCC-[employer] Progress Note --- Attestation signed by Lesley Asencio MD at 02/04/2023 2:03 PM ~~~~~~~~~~~~~~~~~~~~~~~ ~~~~~~~~~~~~~~~~~~~~~~~ ~~~~~~~~~~~~~~~ ATTENDING ADDENDUM Patient Active Problem List Diagnosis SDH (subdural hematoma) (HCC) Acute metabolic encephalopathy Fall Cognitive impairment Debility Coronary artery disease involving [place] coronary artery of [place] heart Longstanding persistent atrial fibrillation (HCC) 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 I personally discussed the review of systems and interviewed the patient along with performing a physical examination. In addition, I discussed the patient's condition and treatment options with him/her when possible. All of the patient's questions were answered and family updated when appropriate and possible. I I performed a physical exam and ROS on the same date of service as above. My findings agree with the above note except for any details corrected below. Injuries/problem list: -Bilateral acute on chronic SDH -Hypertension -Hyperlipidemia -Agitation -Insomnia -GERD -Urinary retention -Acute pain Surgeries: -Bilateral audie holes 01/07 Management/Plan: Neuro: Acute pain -No requirements Agitation -Continue scheduled seroquel, PRN haldol and PRN seroquel Insomnia -Nightly melatonin Bilateral subdural -Status post audie hole -Appreciate NSG consultation -Continue neuro checks -No anti-seizure medications needed Cardiac: Hx of HTN -Continue amlodipine Hx of HPL -Home atorvaastatin Pulm: -Stable on RA -Pulm toilet, IS FEN/GI: -Advance to easy to chew diet -Bowel regimen with miralax/senna, +BM in last 24 hours : -Voiding ID: -Stable Heme: -Stable Endo: -Stable MSK: -PT/OT -->SNF Prophylaxis: -Start lovenox Restraints: None Dispo: Floor Total Care Time throughout the day today was >= 35 minutes (including chart/data review/analysis, care coordination, and rqgq-rl-tlqx encounter), and was spent discussing/counseling the patient/family regarding the care plan for Ada June. I examined the patient independently. I reviewed relevant data myself and may have also done so in the context of team rounds. A full chart review was performed. Level of Medical Decision Making: []High [x]Moderate []Low Complexity: []Acute or chronic illness/injury posing a threat to life or bodily function without treatment (HIGH) []Chronic illness with severe exacerbation, progression, or side effect of treatment (HIGH) []Chronic illness with mild to moderate exacerbation, progression, or side effect of treatment (MOD) []Previously undiagnosed (new) problem with uncertain prognosis (MOD) []Acute illness with systemic symptoms (MOD) [x]Acute, complicated injury (MOD) []Multiple stable chronic illnesses (MOD) Risk: []Parental controlled substances (HIGH) []Decision resuscitate de-escalate care because of poor prognosis (HIGH) []Decision regarding elective major surgery with identified patient or procedure risk factors (HIGH) []Decision regarding emergency major surgery (HIGH) []Drug or therapy requiring intensive monitoring (HIGH) []Requires close neuro-critical care monitoring due to risk of neurological deterioration (HIGH) [x]Prescription drug management (MOD) []Decision regarding minor surgery with identified patient or procedure risk factors (MOD) []Decision regarding elective major surgery without limited identified patient or procedure risk factors (MOD) []Diagnosis or treatment significant limited by social determinants of health (MOD) Personally Reviewed/Independently interpreted patient's: [x]Epic notes []Radiology studies []Labs []EKG []Ordering tests []Other Discussed/ With: [x]Patient/Family [x]RN []Consultants []Primary Team [x]SW/TCC []Other Time was spent: -Reviewing the medical record, including recent tests and results -Ordering prescription medications/tests and procedures -Communicating results to the patient/family/caregive r -Counseling/educating the patient/family/caregive r -Documenting clinical information in the patient's electronic record -Co-ordination of care for the patient -Performing a medically appropriate exam and evaluation Lesley Asencio MD, FACS Division of Trauma, Surgical Critical Care, & Acute Care Surgery Department of Surgery [facility] Daily Trauma Progress Note KAEL 01/10/2023 8:45 AM Admit Date: 01/06/2023 Post Trauma Day 4 Fall Mechanical HPI: 77 yo M s/p fall from standing on coumadin. Fall was unwitnessed, patients (more content not included)... Normal [facility] BASIC METABOLIC PANELon 11-0 Anion gap [Moles/Vol] 9 mmol/L Normal 3-13 [facility] Comment on above: Performed By: #### L AB15, LAB67, [id number] #### Web Retailer: SHARDA CAM ([id number]) [address] Calcium [Mass/Vol] 8.7 mg/dL Normal 8.4-10.4 [facility] Comment on above: Performed By: #### L AB15, LAB67, [id number] #### Web Retailer: SHARDA CAM ([id number]) [facility]) [address] [place] [address] Chloride [Moles/Vol] 100 mmol/L Normal 98-107 [facility] Comment on above: Performed By: #### L AB15, LAB67, [id number] #### Web Retailer: SHARDA CAM ([id number]) [facility]) [address] [place] [address] CO2 [Moles/Vol] 24 mmol/L Normal 22-30 [facility] Comment on above: Performed By: #### L AB15, LAB67, [id number] #### Web Retailer: SHARDA CAM ([phone]) [facility] ([facility]) [address] [place] [address] Creatinine [Mass/Vol] 0.78 mg/dL Normal 0.66-1.25 [facility] Comment on above: Performed By: #### L AB15, LAB67, [id number] #### Web Retailer: SHARDA CAM ([id number]) [facility] ([facility]) [address] [place] [address] GLOMERULAR FILTRATION RATE ML/MIN/1.73 SQ M.PREDICTED >90.0 Normal >60.0 [facility] Comment on above: Result Comment: Calc ulation based on the Chronic Kidney Disease Epidemiology Collaboration (CKD-EPI) equation refit without adjustment for race Performed By: #### L AB15, LAB67, [id number] #### Web Retailer: SHARDA CAM ([id number]) [facility] ([facility]) [address] [place] [address] Glucose [Mass/Vol] 104 mg/dL High 70-100 [facility] Comment on above: Performed By: #### L AB15, LAB67, [id number] #### Web Retailer: SHARDA CAM ([id number]) [facility] ([facility]) [address] [place] [address] [place] Potassium [Moles/Vol] 4.0 mmol/L Normal 3.5-5.1 [facility] Comment on above: Performed By: #### L AB15, LAB67, [id number] #### Web Retailer: SHARDA CAM ([id number]) [facility]) [address] [place] [address] Sodium [Moles/Vol] 132 mmol/L Low 135-145 [facility] Comment on above: Performed By: #### L AB15, LAB67, [id number] #### Web Retailer: SHARDA CAM ([id number]) [facility] ([facility]) [address] Urea nitrogen [Mass/Vol] 29 mg/dL High 9-20 [facility] Comment on above: Performed By: #### L AB15, LAB67, [id number] #### Web Retailer: SHARDA CAM ([id number]) [facility] ([facility]) [address] Basic metabolic 1998 panelon 01-09-2023 Anion gap [Moles/Vol] 9 mmol/L 3 - 13 mmol/L [facility] Calcium [Mass/Vol] 8.7 mg/dL 8.4 - 10. 4 mg/dL [facility] Chloride [Moles/Vol] 100 mmol/L 98 - 10 7 mmol/L [facility] CO2 [Moles/Vol] 24 mmol/L 22 - 30 mmol/L [facility] Creatinine [Mass/Vol] 0.78 mg/dL 0.66 - 1.25 mg/dL [facility] GFR/1.73 sq M.predicted MDRD (S/P/Bld) [Vol rate/Area] - PINF [facility] Comment on above: Calculation based on the Chronic Kidney Disease Epidemiology Collaboration (CKD-EPI) equation refit without adjustment for race Glucose [Mass/Vol] 104 mg/dL High 70 - 100 mg/dL [facility] Interpretation and review of laboratory results Abnormal [facility] Potassium [Moles/Vol] 4.0 mmol/L 3.5 - 5.1 mmol/L [facility] Sodium [Moles/Vol] 132 mmol/L Low 135 - 145 mmol/L [facility] Urea nitrogen [Mass/Vol] 29 mg/dL High 9 - 20 mg/dL [facility] CBC (HEMOGRAM)on 01-09-2023 Erythrocyte distribution width (RBC) [Ratio] 14.0 % Normal 11.5-14.5 [facility] Comment on above: Performed By: #### L AB15, LAB67, [id number] #### Web Retailer: SHARDA CAM ([id number]) [facility] ([facility]) [address] ERYTHROCYTE MEAN CORPUSCULAR HEMOGLOBIN CONCENTRATION (G/DL) BY AUTOMATED 34.0 % Normal 32.0-36.0 [facility] Comment on above: Performed By: #### L AB15, LAB67, [id number] #### Web Retailer: SHARDA CAM ([phone]) [facility]) [address] [place] [address] Hematocrit (Bld) [Volume fraction] 32.1 % Low 40.0-52.0 [facility] Comment on above: Performed By: #### Kaitlin ABMariaelena, LAB67, [id number] #### Web Retailer: SHARDA CAM ([phone]) [facility]) [address] [place] [address] Hemoglobin (Bld) [Mass/Vol] 10.9 g/dL Low 13.0-18.0 [facility] Comment on above: Performed By: #### Kaitlin HEIN, LAB67, [id number] #### Web Retailer: SHARDA CAM ([phone]) [facility]) [address] [place] [address] MCH (RBC) [Entitic mass] 29.6 pg Normal 26.0-34.0 [facility] Comment on above: Performed By: #### Kaitlin HEIN, LAB67, [id number] #### Web Retailer: SHARDA CAM ([id number]) [facility]) [address] [place] [address] MCV (RBC) [Entitic vol] 87.2 fL Normal 80.0-98.0 [facility] Comment on above: Performed By: #### Kaitlin HEIN, LAB67, [id number] #### Web Retailer: SHARDA CAM ([id number]) [facility]) [address] [place] [address] Platelet mean volume (Bld) [Entitic vol] 7.6 fL Normal 7.4-12.4 [facility] Comment on above: Performed By: #### L AB15, LAB67, [id number] #### Web Retailer: SHARDA CAM ([id number]) [facility]) [address] [place] [address] Platelets (Bld) [#/Vol] 174 10*3/uL Normal 140-440 [facility] Comment on above: Performed By: #### L AB15, LAB67, [id number] #### Web Retailer: SHARDA CAM ([id number]) [facility] ([facility]) [address] [place] [address] RBC (Bld) [#/Vol] 3.68 10*6/uL Low 4.40-5.90 [facility] Comment on above: Performed By: #### L AB15, LAB67, [id number] #### Web Retailer: SHARDA CAM ([id number]) [facility] ([facility]) [address] [place] [address] WBC (Bld) [#/Vol] 8.9 10*3/uL Normal 3.6-10.7 [facility] Comment on above: Performed By: #### Kaitlin AB15, LAB67, [id number] #### Web Retailer: SHARDA CAM ([id number]) [facility] ([facility]) [address] [place] [address] CBC panel Auto (Bld)on 01-09 Erythrocyte distribution width (RBC) [Ratio] 14.0 % 11.5 - 14.5 % [facility] Hematocrit (Bld) [Volume fraction] 32.1 % Low 40.0 - 52.0 % [facility] Hemoglobin (Bld) [Mass/Vol] 10.9 g/dL Low 13.0 - 18.0 g/dL [facility] Interpretation and review of laboratory results Abnormal [facility] MCH (RBC) [Entitic mass] 29.6 pg 26.0 - 34.0 pg [facility] MCHC (RBC) [Mass/Vol] 34.0 % 32.0 - 36.0 % [facility] MCV (RBC) [Entitic vol] 87.2 fL 80.0 - 98.0 fL [facility] Platelet mean volume (Bld) [Entitic vol] 7.6 fL 7.4 - 12.4 fL [facility] Platelets (Bld) [#/Vol] 174 10*3/uL 140 - 440 10*3/uL [facility] RBC (Bld) [#/Vol] 3.68 10*6/uL Low 4.40 - 5.9 0 10*6/uL [facility] [employer] WBC (Bld) [#/Vol] 8.9 10*3/uL 3.6 - 10.7 10*3/uL [facility] [employer] [facility] Progress Noteon 01-09-2023 Progress Note PHYSICAL THERAPY [facility] Treatment Note Name/MRN: Ada June ([id number]) Date of : 1945 Age: 77 y.o. Room/Bed: T2-219/T2-219 A Discharge Recommendation: SNF Equipment Needed: TBD at next level of care Prior Level of Function ADL Assistance: Independent Ambulation Assistance: Independent Transfer Assistance: Independent Assessment Pt seen for treatment session following RN clearance. Co-treatment with OT for pt safety with functional mobility. Bilateral Audie hole drains removed today. A&O x 3. Improved cognition compared to previous session. Completing supine to sit with Jasper, sit to supine with SBA, sat at EOB x 5 min with Jasper and occasionally SBA, transfers to rollign walker with modA x 2, and ambulated x 2 trials of 15' with modA x 2. Limited by fatigue. Significant R lean when sitting and standing with inability to maintain correction of posture. Continuing to recommend SNF at discharge due to pt being unsafe to return home alone and skilled needs at this time. Subjective Cleared for therapy by RN. A&O x 3. Co-treatment with OT for pt safety with functional mobility. Pain: Pt denies any current pain. Medical Precautions: No active isolations Proper PPE donned/doffed in accordance with facility standards. Fall Risk: Shin Fall Risk Score: 75 (High Risk) Precautions/Restriction s: Other Position/Activity Restriction: Tele Overall Cognitive Status: Exceptions - Following commands: follows one step commands consistently - Memory: decreased recall of recent events - Safety judgement: decreased awareness of need for safety - Problem solving: assistance required to generate solutions, assistance required to identify errors made, and assistance required to correct errors made - Initiation: requires cues for some - Sequencing: requires cues for some Overall Orientation Status: Oriented to Place, Oriented to Time, and Oriented to Person Family/Caregiver Present: none Objective Ambulation Ambulation 1 Assistive device(s) used: front wheeled walker Assist level: Mod Assist, x2 Person Assist Distance (ft): 15 Quality of gait: No LOB, uneven step length, narrow ELYSE, slow rekha, postural sway, path deviations, instability through all phases, verbal cuing for wider ELYSE, significant R lateral lean with inability to maintain correction. Ambulation 2 Assistive device(s) used: front wheeled walker Assist level: Mod Assist, x2 Person Assist Distance (ft): 15 Quality of gait: No LOB, uneven step length, narrow ELYSE, slow rekha, postural sway, path deviations, instability through all phases, narrow ELYSE, R lateral lean, short step length Transfers/Mobility Sit to stand: Mod Assist, x2 Person Assist Stand to sit: Mod Assist, x2 Person Assist Performed x 2 trials to rolling walker. Significant R lateral lean. Device(s) used: front wheeled walker Exercises Exercises Hip Flexion: x 15 seated marching each LE without UE support with Jasper and occasionally SBA. x 15 each LE standing marching with modA x 2 and use of rolling walker. Other exercises Other exercises?: No Bed Mobility Supine to sit: Min Assist Sit to supine: SBA Balance: Pt sat at EOB x 5 min with Jasper and occasionally SBA for brief periods of time. Retro and right lateral lean. Verbal cuign for posture correction with inability to maintain position. Seated marching performed as noted without UE support requiring Jasper to maintain balance. All standing activities modA x 2 using rolling walker. Posture: poor Sitting - Static: Min Assist Sitting - Dynamic: Min Assist Standing - Static: Mod Assist, x2 Person Assist Standing - Dynamic: Mod Assist, x2 Person Assist Plan Continue acute PT per plan of care. Safety/Education Safety Safety Devices in place: All fall risk precautions in place, call light within reach, left in bed, gait belt, patient at risk for falls, nurse notified, and no alarms engaged upon entry Restraints: No Education Education Given To: patient Education Provided: PT Role, PT Goals, Gait Training, Plan of Care, Transfer Training, Equipment, Discharge Recommendations, and Benefits of Increasing Activity Education Method: Verbal Barriers to Learning: Cognition Education Outcome: Verbalized Understanding, Demonstrated Understanding, and Continued Education Needed Outcome Measures AM-PAC AM-PAC Inpatient Mobility Raw Score (No Stairs) : 9 JH-HLM JH-HLM Score: Walked 25 ft or more (i.e. walked outside of room) Goals Patient Stated Goal: To get better Encounter Problems Encounter Problems (Active) Balance Patient will maintain dynamic standing balance for 15 minutes with SBA in order to demonstrate decreased risk of falling. (Progressing) Start: 01/08/23 Expected End: 02/05/23 Mobility Patient will ambulate 50 feet with SBA and least restrictive device in order to improve safety and independence with mobility. (Progr (more content not included)... Normal [facility] Progress Note Speech-Language Pathology SPEECH LANGUAGE PATHOLOGY [facility] Dysphagia Treatment Note Patient Name: Ada June Evaluation Date: 01/09/2023 Date of : 1945 Admission Date: 01/06/2023 10:07 PM Age: 77 y.o. Room/Bed: T2-219/T2-219 A Subjective Patient alert and cooperative. Seen upright in bed. Answers all basic questions with clear vocal quality. Follows all basic commands. No visitors at bedside. Spoke with LICHA Rouse who cleared pt for treatment. Current Diet: Dietary Orders (From admission, onward) Start Ordered 01/08/23 1727 Diet, tube feeding no tray Nasogastric; Glucerna 1.5 Bret; Continuous; Yes; 10; Q 4 Hours; 10; 60; 150; Q 4 Hours Diet effective now Question Answer Comment Route: Nasogastric Formula: Glucerna 1.5 Bret Delivery Method: Continuous Continuous Advance Tube Feeding? Yes Advancement Volume (mL/hr) 10 Advancement Frequency: Q 4 Hours Continuous Initial Rate (Recommended mL/hr) 10 Continuous Goal Rate (Recommended mL/hr) 60 Flush volume (mL): 150 Flush frequency: Q 4 Hours 01/08/23 1728 Aspiration Precautions: - Upright positioning for all PO intake - Small bites/sips - Alternate solid and liquids - Consistent mouth care Oxygen: Oxygen Therapy: None (Room air) Pain: RN managing pain. PPE Worn: gloves Objective & Assessment Dysphagia Treatment # of Activities: 1 Dysphagia Activity 1: Re-assess swallow function Patient is following directions for oral motor exam this date. Patient has upper dentures, which are placed following oral care. He states that he does not eat with any bottom dentures in place. Lingual and mandibular ROM and strength are WFL with weak cough and timely onset of swallow. Patient trials ice chips and thin liquids by teaspoon, cup edge and straw. His swallow onset remains timely with audible quality to swallow, but no change in vocal quality or cough. Patient trials puree and soft and bite sized textures with extended mastication, fair bolus manipulation, and scattered mild oral residue post swallow. Plan & Recommendations Plan: Recommend initiate soft and bite sized/thin liquid diet. ST to follow to advance as tolerated. Continue acute [employer] therapy per initial plan of care and established goals. Recommend Soft and bite-sized solids and Thin liquids and meds whole in puree or crushed in puree and the following precautions: - Upright positioning for all PO intake - Small bites/sips - Alternate solid and liquids - Consistent mouth care D/C Recommendations: to be determined Education Education Given: swallowing strategies, diet recommendations Given To: patient and RN Response: verbalizes understanding Goals Patient Stated Goal: To have NG tube removed. Encounter Problems Encounter Problems (Active) Swallowing Patient will tolerate the least restrictive diet consistency to allow for safe consumption of daily meals (Initiated) Start: 01/09/23 Expected End: 01/23/23 Patient will tolerate recommended food and liquid consistencies without clinical signs and symptoms of aspirations (Initiated) Start: 01/09/23 Expected End: 01/23/23 Encounter Problems (Resolved) Swallowing Patient will participate in repeat clinical dysphagia evaluation (Completed) Start: 01/08/23 Expected End: 01/22/23 Resolved: 01/09/23 Therapy Time [employer] Individual Minutes Time In: 903 Time Out: 921 Minutes: 18 AMMY Rowe Normal [facility] Progress Note [facility] Geriatric Medicine Inpatient Consult Service Admission Date: 01/06/2023 Assessment Principal Problem: SDH (subdural hematoma) (HCC) Active Problems: Acute metabolic encephalopathy Fall Cognitive impairment Debility Coronary artery disease involving [place] coronary artery of [place] heart Longstanding persistent atrial fibrillation (HCC) 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 Continue to monitor Qtc due to risk of Qtc prolongation. -Cascade PRN Seroquel or Haldol for ONLY if danger to self/others/treatment -Continue scheduled melatonin at HS -Monitor for constipation/urinary retention - last BM unknown -Possible medication contributions: decadron (one dose received in OR) Declining functional status Falls -Related to physical deconditioning, diabetes, heart disease, cognitive impairment -Continue PT/OT as able while inpatient -palliative care following for ongoing goals of care discussion -Vitamin D 52 -Anticipate d/c to TBD likely SNF Cognitive deficits -+ history of cognitive decline at home reported per son since heart surgery a year ago in July. + history of decline in IADL's. Reported difficulty with medications, concern for scamming -TSH WNL, B12 WNL -Head imaging - CT head (01/08/23): Impression shows Interval postsurgical changes, with placement of surgical drains and large amount of pneumocephalus -History concerning for baseline dementia -Recommend outpatient follow up at [facility]) for more in depth cognitive evaluation when in usual state of health. Follow-up: will follow with you Subjective Chief Complaint: subdural hematoma Geriatrics consulted for geriatric fall HPI- The patient is new to me but seen by the Geriatric Inpatient Consult team. 77 y.o. year-old male admitted to acute care from home for for found down in bathtub fully dressed by son. He was taken to [facility] and found to have bilateral acute on subacute subdural hematoma. Diagnosed with bilateral subacute subdural hematomas and transferred to [facility]. Went to OR yesterday for bilateral bur holes for subdural hematoma. Cardiology consulted for history of mechanical valve replacement and cannot anticoagulate due to bilateral subdural hematoma. Holding anticoagulation until seen as an outpatient. Interval History: Remains on ICU. Pt seen today in bed. Alert and oriented times 3 today. Denies any pain. Has a Dobhoff and currently also working with ST at bedside. Pt is alert today. Max assist. Recommending SNF Review of Systems Constitutional: Negative for activity change, chills and fatigue. HENT: Negative for congestion. Respiratory: Negative for cough and shortness of breath. Cardiovascular: Negative for chest pain. Musculoskeletal: Positive for gait problem. Skin: Negative for wound. Neurological: Negative for dizziness and headaches. Psychiatric/Behavioral: Negative for agitation, confusion and dysphoric mood. Objective BP (!) 143/93 Pulse 97 Temp 36.4 ?C (97.6 ?F) (Temporal) Resp 18 Ht 6' 3 (1.905 m) Comment: estimated per chart review however would really like to confirm Wt 171 lb 11.8 oz (77.9 kg) SpO2 100% BMI 21.47 kg/m? Intake/Output Summary (Last 24 hours) at 01/09/2023 0906 Last data filed at 01/09/2023 0630 Gross per 24 hour Intake 1980 ml Output 878 ml Net 1102 ml Wt Readings from Last 3 Encounters: 01/08/23 171 lb 11.8 oz (77.9 kg) Current Facility-Administered Medications: albuterol (2.5 MG/3ML) 0.083% nebulizer solution 2.5 mg, 2.5 mg, Nebulization, q2h PRN, Sonia Garces, [employer] amLODIPine (Norvasc) tablet 5 mg, 5 mg, Oral, Daily, Narinder Lane MD, 5 mg at 01/08/23 1629 atorvastatin (Lipitor) tablet 20 mg, 20 mg, Oral, Daily, Narinder Lane MD, 20 mg at 01/08/23 2132 haloperidol lactate (Haldol) injection 0.5 mg, 0.5 mg, IntraMUSCular, q6h PRN, Martina Rausch APRN - KENIA hydrALAZINE (Apresoline) injection 10 mg, 10 mg, IntraVENous, q2h PRN, Bashir Celeste DO HYDROmorphone (Dilaudid) injection 0.25 mg, 0.25 mg, IntraVENous, q3h PRN, Sonia Garces, [employer]PER labetalol (Normodyne,Trandate) injection 20 mg, 20 mg, IntraVENous, q2h PRN, Bashir Celeste DO melatonin tablet (more content not included)... 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 I personally discussed the review of systems and interviewed the patient along with performing a physical examination. I reviewed the recent events, imaging, labs, vital signs. In addition, I discussed the patient's condition and treatment options with him/her when possible. I have also reviewed and agree with the past medical, family, and social history unless otherwise noted. All of the patient's questions were answered and family updated when appropriate and possible. A complete review of systems was obtained and is negative except as stated in HPI and/or Subjective Section. -as per Dr. Lane's note -I evaluated patient on 01/09/23 -patient admitted evening of 01/06 with bilateral acute on chronic SDHs Neuro: POD#2 from OR with Neurosurg for [place] hole evacuation of bilateral SDHs, head CT yesterday with expected post-op changes, continue serial neuro checks, subdural drains were removed this AM by Neurosurg...Delirium: much improved today after initiating Seroquel yesterday, low dose PRN haldol also avialable (though has not needed) CV: h/o a-fib on warfarin, appreciate Cards recs, patient does NOT have mechanical valve, continue to hold anticoagulation; avoid hypertension -Pulm: no acute concerns -MARIA LUISAI: passed Speech eval today for soft & bite-sized, will remove DHT -: chu placed for OR, on Flomax after urinary retention 01/07, will continue chu for today as he has not actually had Floxmax yet given it could not be crushed for previous DHT -Heme: SCDs, continue to hold anticoagulation, Lovenox for DVT prophylaxis may be started tomorrow -ID: no acute concerns -Dispo: okay to transfer out if ICU to 3W/3N, current PT recs are SNF Total Care Time throughout the day today was >= 50 minutes (including chart/data review/analysis, care coordination, and [id number]-[id number] encounter), and was spent discussing/counseling the patient/family regarding the care plan for Ada June. I examined the patient independently. I reviewed relevant data myself and may have also done so in the context of team rounds. A full chart review was performed. Level of Medical Decision Making: [x]High []Moderate []Low Complexity: [x]Acute or chronic illness/injury posing a threat to life or bodily function without treatment (HIGH) []Chronic illness with severe exacerbation, progression, or side effect of treatment (HIGH) []Chronic illness with mild to moderate exacerbation, progression, or side effect of treatment (MOD) []Previously undiagnosed (new) problem with uncertain prognosis (MOD) []Acute illness with systemic symptoms (MOD) []Acute, complicated injury (MOD) []Multiple stable chronic illnesses (MOD) Risk: [x]Parental controlled substances (HIGH) []Decision not to resuscitate or to de-escalate care because of poor prognosis (HIGH) []Decision regarding major surgery with identified patient or procedure risk factors (HIGH) []Decision regarding emergency surgery (HIGH) [x]Drug or treatment/therapy requiring intensive monitoring (HIGH) []Prescription drug management (MOD) []Decision regarding surgery with identified patient or procedure risk factors (MOD) []Diagnosis or treatment significantly limited by social determinants of health (MOD) Personally Reviewed/Independently interpreted patient's: [x]Epic notes [x]Radiology studies [x]Labs []EKG []Ordering tests []Other Discussed/ With: [x]Patient/Family [x]RN [x]Consultants []Primary Team [x]SW/TCC []Other Time was spent: -Reviewing the medical record, including recent tests and results -Ordering prescription medications/tests and procedures -Communicating results to the patient/family/caregive r -Counseling/educating the patient/family/caregive r -Documenting clinical information in the patient's electronic record -Co-ordination of care for the patient -Performing a medically appropriate exam and evaluation Eleazar Arenas MD, [facility] Trauma, Surgical Critical Care, & Acute Care Surgery Department of Surgery [facility] Pager: [phone] ~~~~~~~~~~~~~~~~~~~~~~~ ~~~~~~~~~~~~~~~~~~~~~~~ ~~~~~~~~~~~~~~~ This note may have been dictated using [employer] Edition (more content not included)... Normal [facility] XR CHEST 1 VIEWon 01-09-2023 XR CHEST 1 VIEW Patient Name: ADA JUNE : 1945 Exam Date/Time: 01/08/2023 19:49 Procedure: XR CHEST 1 VIEW Ordering Provider: ORTEGA LAURA Reason For Exam: DYSPNEA PORTABLE CHEST: INDICATION: Dyspnea COMPARISON: No previous studies are available for comparison. Obtained at 1947 hours. A single portable AP radiograph of the chest was obtained. The heart is normal in size. The mediastinal silhouette is normal. There are heavy interstitial markings and patchy infiltrative changes. A small left effusion is present. There is no pleural thickening. Arthritic changes of the spine and shoulders are present. An NG tube is noted overlying left upper quadrant. IMPRESSION: Patchy bilateral infiltrates and small left effusion. Report Dictated on Electronically Signed By: Quincy Babin DO Electronically Signed Date/Time: 01/08/2023 10:00 PM EST Normal [facility] 25-hydroxyvitamin D3 [Mass/V ol]on 01-08-2023 Interpretation and review of laboratory results Normal [facility] Therapy is based on measurement of Total 25-OHD with the following classification levels: Less than 20 ng/mL: Indicative of Vit D deficiency 20-30 ng/mL: Suggests Vit D insufficiency Optimal: Greater than or equal to 30 ng/mL Test performed by [employer] Competitive Immunoassay, measuring Total Vitamin D, not individual fractions. [facility] BASIC METABOLIC PANELon 11-0 Anion gap [Moles/Vol] 10 mmol/L Normal 3-13 [facility] Comment on above: Performed By: #### L AB15, LAB67, [id number] #### Web Retailer: SHARDA CAM ([phone]) [facility] ([facility]) [address] [place] [address] Calcium [Mass/Vol] 8.8 mg/dL Normal 8.4-10.4 [facility] Comment on above: Performed By: #### L AB15, LAB67, [id number] #### Web Retailer: SHARDA CAM ([id number]) [facility] ([facility]) [address] [place] [address] Chloride [Moles/Vol] 103 mmol/L Normal 98-107 [facility] Comment on above: Performed By: #### L AB15, LAB67, [id number] #### Web Retailer: SHARDA CAM ([id number]) [facility] ([facility]) [address] [place] [address] CO2 [Moles/Vol] 22 mmol/L Normal 22-30 [facility] Comment on above: Performed By: #### Kaitlin AB15, LAB67, [id number] #### Web Retailer: SHARDA CAM ([phone]) [facility] ([facility]) [address] [place] [address] Creatinine [Mass/Vol] 0.88 mg/dL Normal 0.66-1.25 [facility] Comment on above: Performed By: #### L AB15, LAB67, [id number] #### Web Retailer: SHARDA CAM ([id number]) [facility] ([facility]) [address] [place] [address] [place] GLOMERULAR FILTRATION RATE ML/MIN/1.73 SQ M.PREDICTED 87.5 mL/min/1.73m*2 Normal >60.0 [facility] Comment on above: Result Comment: Calc ulation based on the Chronic Kidney Disease Epidemiology Collaboration (CKD-EPI) equation refit without adjustment for race Performed By: #### L AB15, LAB67, [id number] #### Web Retailer: SHARDA CAM ([id number]) [facility] ([facility]) [address] [place] [address] [place] Glucose [Mass/Vol] 139 mg/dL High 70-100 [facility] Comment on above: Performed By: #### L AB15, LAB67, [id number] #### Web Retailer: SHARDA CAM ([phone]) [facility] ([facility]) [address] [place] [address] Potassium [Moles/Vol] 4.4 mmol/L Normal 3.5-5.1 [facility] Comment on above: Performed By: #### L AB15, LAB67, [id number] #### Web Retailer: SHARDA CAM ([phone]) [facility] ([facility]) [address] [place] [address] Sodium [Moles/Vol] 134 mmol/L Low 135-145 [facility] Comment on above: Performed By: #### L AB15, LAB67, [id number] #### Web Retailer: SHARDA CAM ([id number]) [facility] ([facility]) [address] [place] [address] Urea nitrogen [Mass/Vol] 34 mg/dL High 9-20 [facility] Comment on above: Performed By: #### L AB15, LAB67, [id number] #### Web Retailer: SHARDA CAM ([id number]) [facility] ([facility]) [address] [place] [address] Basic metabolic 1998 panelon 01-08-2023 Anion gap [Moles/Vol] 10 mmol/L 3 - 13 mmol/L [facility] Calcium [Mass/Vol] 8.8 mg/dL 8.4 - 10. 4 mg/dL [facility] Chloride [Moles/Vol] 103 mmol/L 98 - 10 7 mmol/L [facility] CO2 [Moles/Vol] 22 mmol/L 22 - 30 mmol/L [facility] Creatinine [Mass/Vol] 0.88 mg/dL 0.66 - 1.25 mg/dL [facility] GFR/1.73 sq M.predicted MDRD (S/P/Bld) [Vol rate/Area] 87.5 mL/min/{1.73_m2} - PINF [facility] Comment on above: Calculation based on the Chronic Kidney Disease Epidemiology Collaboration (CKD-EPI) equation refit without adjustment for race Glucose [Mass/Vol] 139 mg/dL High 70 - 100 mg/dL [facility] Interpretation and review of laboratory results Abnormal [facility] Potassium [Moles/Vol] 4.4 mmol/L 3.5 - 5.1 mmol/L [facility] Sodium [Moles/Vol] 134 mmol/L Low 135 - 145 mmol/L [facility] Urea nitrogen [Mass/Vol] 34 mg/dL High 9 - 20 mg/dL [facility] CBC (HEMOGRAM)on 01-08-2023 Erythrocyte distribution width (RBC) [Ratio] 13.8 % Normal 11.5-14.5 [facility] Comment on above: Performed By: #### L AB15, LAB67, [id number] #### Web Retailer: SHARDA CAM ([id number]) [facility]) [address] [place] [address] ERYTHROCYTE MEAN CORPUSCULAR HEMOGLOBIN CONCENTRATION (G/DL) BY AUTOMATED 34.2 % Normal 32.0-36.0 [facility] Comment on above: Performed By: #### Kaitlin AB15, LAB67, [id number] #### Web Retailer: SHARDA CAM ([id number]) [facility] ([facility]) [address] [place] [address] Hematocrit (Bld) [Volume fraction] 30.9 % Low 40.0-52.0 [facility] Comment on above: Performed By: #### L AB15, LAB67, [id number] #### Web Retailer: SHARDA CAM ([id number]) [facility] ([facility]) [address] [place] [address] Hemoglobin (Bld) [Mass/Vol] 10.5 g/dL Low 13.0-18.0 [facility] Comment on above: Performed By: #### L AB15, LAB67, [id number] #### Web Retailer: SHARDA CAM ([phone]) [facility]) [address] [place] [address] MCH (RBC) [Entitic mass] 29.8 pg Normal 26.0-34.0 [facility] Comment on above: Performed By: #### L AB15, LAB67, [id number] #### Web Retailer: SHARDA CAM ([id number]) [facility] ([facility]) [address] [place] [address] MCV (RBC) [Entitic vol] 87.1 fL Normal 80.0-98.0 [facility] Comment on above: Performed By: #### Kaitlin AB15, LAB67, [id number] #### Web Retailer: SHARDA CAM ([phone]) [facility] ([facility]) [address] [place] [address] Platelet mean volume (Bld) [Entitic vol] 7.5 fL Normal 7.4-12.4 [facility] Comment on above: Performed By: #### Kaitlin HEIN, LAB67, [id number] #### Web Retailer: SHARDA CAM ([phone]) [facility] ([facility]) [address] [place] [address] Platelets (Bld) [#/Vol] 184 10*3/uL Normal 140-440 [facility] Comment on above: Performed By: #### Kaitlin ABMariaelena, LAB67, [id number] #### Web Retailer: SHARDA CAM ([phone]) [facility] ([facility]) [address] [place] [address] RBC (Bld) [#/Vol] 3.54 10*6/uL Low 4.40-5.90 [facility] Comment on above: Performed By: #### Kaitlin HEIN, LAB67, [id number] #### Web Retailer: SHARDA CAM ([id number]) [facility] ([facility]) [address] [place] [address] WBC (Bld) [#/Vol] 9.4 10*3/uL Normal 3.6-10.7 [facility] Comment on above: Performed By: #### Kaitlin ABMariaelena, LAB67, [id number] #### Web Retailer: SHARDA CAM ([phone]) [facility]) [address] [place] [address] CBC panel Auto (Bld)Ordered By: Shelly Griffith on 01-08-2023 Erythrocyte distribution width (RBC) [Ratio] 13.8 % 11.5 - 14.5 % [facility] Hematocrit (Bld) [Volume fraction] 30.9 % Low 40.0 - 52.0 % [facility] Hemoglobin (Bld) [Mass/Vol] 10.5 g/dL Low 13.0 - 18.0 g/dL [facility] Interpretation and review of laboratory results Abnormal [facility] MCH (RBC) [Entitic mass] 29.8 pg 26.0 - 34.0 pg [facility] MCHC (RBC) [Mass/Vol] 34.2 % 32.0 - 36.0 % [facility] MCV (RBC) [Entitic vol] 87.1 fL 80.0 - 98.0 fL [facility] Platelet mean volume (Bld) [Entitic vol] 7.5 fL 7.4 - 12.4 fL [facility] Platelets (Bld) [#/Vol] 184 10*3/uL 140 - 440 10*3/uL [facility] RBC (Bld) [#/Vol] 3.54 10*6/uL Low 4.40 - 5.9 0 10*6/uL [facility] WBC (Bld) [#/Vol] 9.4 10*3/uL 3.6 - 10.7 10*3/uL [facility] CT HEAD WO IV CONTRASTon CT HEAD WO IV CONTRAST Patient Name: ADA JUNE :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 surgery with identified patient or procedure risk factors (MOD) []Diagnosis or treatment significantly limited by social determinants of health (MOD) Personally Reviewed/Independently interpreted patient's: [x]Epic notes [x]Radiology studies [x]Labs []EKG []Ordering tests []Other Discussed/ With: [x]Patient/Family [x]RN [x]Consultants []Primary Team [x]SW/TCC []Other Time was spent: -Reviewing the medical record, including recent tests and results -Ordering prescription medications/tests and procedures -Communicating results to the patient/family/caregive r -Counseling/educating the patient/family/caregive r -Documenting clinical information in the patient's electronic record -Co-ordination of care for the patient -Performing a medically appropriate exam and evaluation Eleazar Arenas MD, [facility] Trauma, Surgical Critical Care, & Acute Care Surgery Department of Surgery [facility] Pager: [phone] ~~~~~~~~~~~~~~~~~~~~~~~ ~~~~~~~~~~~~~~~~~~~~~~~ ~~~~~~~~~~~~~~~ This note may have been dictated using [employer] Medical Practice Edition 2.6 and/or [employer] Voice Recognition Feature. The document was (more content not included)... Normal [facility] THYROID STIMULATING HORMONEo n 01-08-2023 THYROID STIMULATING HORMONE 0.474 uIU/mL Normal 0.465-4.680 [facility] Comment on above: Performed By: #### L AB15, LAB67, [id number] #### Web Retailer: SHARDA CAM ([phone]) [facility]) [address] [place] [address] TSH Qnon 01-08-2023 Interpretation and review of laboratory results Normal [facility] VITAMIN B12on 01-08-2023 Cobalamin (Vitamin B12) [Mass/Vol] 425 pg/mL Normal 239-931 [facility] Comment on above: Performed By: #### Kaitlin HARVEY15, LAB67, [id number] ####Web Retailer: SHARDA CAM ([phone])[facility])[address] [place] [address] VITAMIN D DEFICIENCY SCREENI NG (VIT D 25)on 01-08-2023 VIT D 25-OH, TOTAL 52 ng/mL Normal 30-100 [facility] Comment on above: Result Comment: RACHEL Enriquez COMMENTS: Therapy is based on measurement of Total 25-OHD with the following classification levels: Less than 20 ng/mL: Indicative of Vit D deficiency 20-30 ng/mL: Suggests Vit D insufficiency Optimal: Greater than or equal to 30 ng/mL Test performed by [employer] Competitive Immunoassay, measuring Total Vitamin D, not individual fractions. Performed By: #### L AB15, LAB67, [id number] #### Web Retailer: SHARDA CAM ([phone]) [facility]) [address] [place] [address] Vital signsOrdered By: Debbie Mari on 01-08-2023 Heart rate 69 /min bpm [employer] Work Phone: XR ABDOMEN 1 VIEWon 01-09-20 23 XR ABDOMEN 1 VIEW Patient Name: ADA JUNE : 1945 Exam Date/Time: 01/08/2023 14:33 Procedure: XR ABDOMEN 1 VIEW Ordering Provider: ORTEGA LAURA Reason For Exam: Doboff placement verification EXAM TYPE: XR ABDOMEN 1 VIEW EXAM DATE AND TIME: 01/08/2023 2:33 PM EST INDICATION: 77 years Male with Dobbhoff tube placement COMPARISON: none TECHNIQUE: AP supine radiograph of the abdomen and pelvis was obtained. FINDINGS: Limited as only a portion of the abdomen was included in the jvpni-kc-nzsh. An enteric tube terminates overlying the gastric body. The visualized bowel loops are normal in caliber. Limited evaluation for free air or air-fluid levels on supine-only imaging. Degenerative changes in the spine. Report Dictated on Electronically Signed By: Bashir Clakr MD Electronically Signed Date/Time: 01/08/2023 3:01 PM EST Normal [facility] XR Abdomen Single viewon Patient Name: ADA JUNE : 1945 Exam Date/Time: 01/08/2023 14:33 Procedure: XR ABDOMEN 1 VIEW Ordering Provider: ORTEGA LAURA Reason For Exam: Doboff placement verification EXAM TYPE: XR ABDOMEN 1 VIEW EXAM DATE AND TIME: 01/08/2023 2:33 PM EST INDICATION: 77 years Male with Dobbhoff tube placement COMPARISON: none TECHNIQUE: AP supine radiograph of the abdomen and pelvis was obtained. FINDINGS: Limited as only a portion of the abdomen was included in the rjtpi-up-szmq. An enteric tube terminates overlying the gastric body. The visualized bowel loops are normal in caliber. Limited evaluation for free air or air-fluid levels on supine-only imaging. Degenerative changes in the spine. Report Dictated on Electronically Signed By: Bashir Clark MD Electronically Signed Date/Time: 01/08/2023 3:01 PM [facility] Bashir Clark MD - 01/08/2023 Patient Name: ADA JUNE : 1945 Exam Date/Time: 01/08/2023 14:33 Procedure: XR ABDOMEN 1 VIEW Ordering Provider: ORTEGA LAURA Reason For Exam: Doboff placement verification EXAM TYPE: XR ABDOMEN 1 VIEW EXAM DATE AND TIME: 01/08/2023 2:33 PM EST INDICATION: 77 years Male with Dobbhoff tube placement COMPARISON: none TECHNIQUE: AP supine radiograph of the abdomen and pelvis was obtained. FINDINGS: Limited as only a portion of the abdomen was included in the qprln-du-lymc. An enteric tube terminates overlying the gastric body. The visualized bowel loops are normal in caliber. Limited evaluation for free air or air-fluid levels on supine-only imaging. Degenerative changes in the spine. Report Dictated on Electronically Signed By: Bashir Clark MD Electronically Signed Date/Time: 01/08/2023 3:01 PM [facility] Radiology Study observation (narrative) [facility] [employer] XR Abdomen Single viewOrdere d By: Bashir Clark on 01-08-2023 [facility] [employer] Work Phone: XR Chest Single viewon 01-08 Patchy bilateral infiltrates and small left effusion. Report Dictated on Electronically Signed By: Quincy Babin DO Electronically Signed Date/Time: 01/08/2023 10:00 PM EST [facility] Patient Name: ADA JUNE : 1945 Exam Date/Time: 01/08/2023 19:49 Procedure: XR CHEST 1 VIEW Ordering Provider: ORTEGA LAURA Reason For Exam: DYSPNEA PORTABLE CHEST: INDICATION: Dyspnea COMPARISON: No previous studies are available for comparison. Obtained at 1947 hours. A single portable AP radiograph of the chest was obtained. The heart is normal in size. The mediastinal silhouette is normal. There are heavy interstitial markings and patchy infiltrative changes. A small left effusion is present. There is no pleural thickening. Arthritic changes of the spine and shoulders are present. An NG tube is noted overlying left upper quadrant. [facility] Quincy Babin DO - 01/08/2023 Patient Name: ADA JUNE : 1945 [facility]#: [id number] Exam Date/Time: 01/08/2023 19:49 Procedure: XR CHEST 1 VIEW Ordering Provider: ORTEGA LAURA Reason For Exam: DYSPNEA PORTABLE CHEST: INDICATION: Dyspnea COMPARISON: No previous studies are available for comparison. Obtained at 1947 hours. A single portable AP radiograph of the chest was obtained. The heart is normal in size. The mediastinal silhouette is normal. There are heavy interstitial markings and patchy infiltrative changes. A small left effusion is present. There is no pleural thickening. Arthritic changes of the spine and shoulders are present. An NG tube is noted overlying left upper quadrant. IMPRESSION: Patchy bilateral infiltrates and small left effusion. Report Dictated on Electronically Signed By: Quincy Babin DO Electronically Signed Date/Time: 01/08/2023 10:00 PM EST [facility] Radiology Study observation (narrative) [facility] XR Chest Single viewOrdered By: Quincy Babin on 01-08-2023 [facility] [employer] Work Phone: BASIC METABOLIC PANELon 11-0 Anion gap [Moles/Vol] 8 mmol/L Normal 3-13 [facility] Comment on above: Performed By: #### L AB15, LAB67, [id number] #### Web Retailer: SHARDA CAM ([phone]) [facility] ([facility]) [address] [place] [address] Calcium [Mass/Vol] 9.6 mg/dL Normal 8.4-10.4 [facility] Comment on above: Performed By: #### L AB15, LAB67, [id number] #### Web Retailer: SHARDA CAM ([id number]) [facility] ([facility]) [address] [place] [address] [place] Chloride [Moles/Vol] 98 mmol/L Normal 98-107 [facility] Comment on above: Performed By: #### Kaitlin AB15, LAB67, [id number] #### Web Retailer: SHARDA CAM ([phone]) [facility] ([facility]) [address] [place] [address] [place] CO2 [Moles/Vol] 27 mmol/L Normal 22-30 [facility] Comment on above: Performed By: #### Kaitlin HEIN, LAB67, [id number] #### Web Retailer: SHARDA CAM ([phone]) [facility] ([facility]) [address] [place] [address] Creatinine [Mass/Vol] 0.89 mg/dL Normal 0.66-1.25 [facility] Comment on above: Performed By: #### Kaitlin HEIN, LAB67, [id number] #### Web Retailer: SHARDA CAM ([phone]) [facility] ([facility]) [address] [place] [address] [place] GLOMERULAR FILTRATION RATE ML/MIN/1.73 SQ M.PREDICTED 87.2 mL/min/1.73m*2 Normal >60.0 [facility] Comment on above: Result Comment: Calc ulation based on the Chronic Kidney Disease Epidemiology Collaboration (CKD-EPI) equation refit without adjustment for race Performed By: #### Kaitlin HEIN, LAB67, [id number] #### Web Retailer: SHARDA CAM ([phone]) [facility] ([facility]) [address] [place] [address] [place] Glucose [Mass/Vol] 94 mg/dL Normal 70-100 [facility] Comment on above: Performed By: #### Kaitlin AB15, LAB67, [id number] #### Web Retailer: SHARDA CAM ([phone]) [facility] ([facility]) [address] [place] [address] [place] Potassium [Moles/Vol] 4.6 mmol/L Normal 3.5-5.1 [facility] Comment on above: Performed By: #### L AB15, LAB67, [id number] #### Web Retailer: SHARDA CAM ([phone]) [facility] ([facility]) [address] [place] [address] Sodium [Moles/Vol] 132 mmol/L Low 135-145 [facility] Comment on above: Performed By: #### L AB15, LAB67, [id number] #### Web Retailer: SHARDA CAM ([phone]) [facility] ([facility]) [address] [place] [address] Urea nitrogen [Mass/Vol] 40 mg/dL High 9-20 [facility] Comment on above: Performed By: #### L AB15, LAB67, [id number] #### Web Retailer: SHARDA CAM ([id number]) [facility] ([facility]) [address] [place] [address] [facility] 01-07-2023 [place] Care Managment Initi al Assessment Date: 01/08/2023 Patient Name: Ada June : 1945 Patient Information Source of Information: (chart review) Cognition/Language: Impaired Permission given to speak with patient quality assurance representative/caregive r as indicated: Confirmation of Payer with patient/family: Yes Payer Name: [facility] : Confirmation of Primary Care Physician: Confirmed PCP Name: Shannon Seen in last 2 years?: Yes Primary Caregiver: Self If assistance needed, confirmed caregiver ready, willing and able to care for patient at discharge: Yes Confirmed with: family Living Arrangements Current Residence: Private Residence Number of Floors Number of Entry Steps: Bed/Bath Levels: Facility: Facility Name: Plan to Return: No Lives with: Alone Support Systems: Family members Activities of Daily Living Ambulation: Independent Bathing/Dressing: Independent Elimination/Continence/ Toileting: Independent Feeding: Independent Who Assists with Activities of Daily Living: Instrumental Activities of Daily Living Prescription Coverage: Yes Pharmacy Used: Medication Management: Transportation/Shopping : Assistance Provider Transportation/Shopping Assistance Provider Name: family Transportation Mode: Needs Assistance with Transportation at Discharge: Meal Preparation: Independent Laundry/Cleaning: Independent Finances/Bill Paying: Independent Communication: Independent Types of Care Services/Equipment Utilized Care Services: Dialysis Type: Durable Medical Equipment: Patient's Goal/Discharge Plan Patient expects to be discharged to: rehab Discharge Planning Actions: Continue to follow Patient's Choice Rights and [employer] and Collaborative Relationships Disclosed as Indicated for Post-Acute Care: NA Interdisciplinary Team Engagement: PT/OT, Palliative Care, Geriatric Assessment Social Work Referral for: Additional Information: Patient admitted T2, found down SDH. Neurosurgery following plans for surgery today for audie holes. PT/OT when appropraite to assist with dc planning. Will follow. Mona Terry RN Normal [facility] CBC (HEMOGRAM)on 01-07-2023 Erythrocyte distribution width (RBC) [Ratio] 13.6 % Normal 11.5-14.5 [facility] Comment on above: Performed By: #### L AB15, LAB67, [id number] #### Web Retailer: SHARDA CAM ([phone]) [address] ERYTHROCYTE MEAN CORPUSCULAR HEMOGLOBIN CONCENTRATION (G/DL) BY AUTOMATED 34.0 % Normal 32.0-36.0 [facility] Comment on above: Performed By: #### L AB15, LAB67, [id number] #### Web Retailer: SHARDA CAM ([id number]) [address] Hematocrit (Bld) [Volume fraction] 35.0 % Low 40.0-52.0 [facility] Comment on above: Performed By: #### L AB15, LAB67, [id number] #### Web Retailer: SHARDA CAM ([id number]) [address] Hemoglobin (Bld) [Mass/Vol] 11.9 g/dL Low 13.0-18.0 [facility] Comment on above: Performed By: #### L AB15, LAB67, [id number] #### Web Retailer: SHARDA [id number]) [address] [place] [address] [place] MCH (RBC) [Entitic mass] 29.6 pg Normal 26.0-34.0 [facility] Comment on above: Performed By: #### L AB15, LAB67, [id number] #### Web Retailer: SHARDA CAM ([phone]) [facility]) [address] [place] [address] MCV (RBC) [Entitic vol] 87.0 fL Normal 80.0-98.0 [facility] Comment on above: Performed By: #### L AB15, LAB67, [id number] #### Web Retailer: SHARDA CAM ([id number]) [facility]) [address] [place] [address] Platelet mean volume (Bld) [Entitic vol] 7.8 fL Normal 7.4-12.4 [facility] Comment on above: Performed By: #### L AB15, LAB67, [id number] #### Web Retailer: SHARDA CAM ([id number]) [facility] ([facility]) [address] [place] [address] Platelets (Bld) [#/Vol] 221 10*3/uL Normal 140-440 [facility] Comment on above: Performed By: #### L AB15, LAB67, [id number] #### Web Retailer: SHARDA CAM ([phone]) [facility]) [address] [place] [address] RBC (Bld) [#/Vol] 4.03 10*6/uL Low 4.40-5.90 [facility] Comment on above: Performed By: #### L AB15, LAB67, [id number] #### Web Retailer: SHARDA CAM ([phone]) [facility]) [address] [place] [address] WBC (Bld) [#/Vol] 8.6 10*3/uL Normal 3.6-10.7 [facility] Comment on above: Performed By: #### L AB15, LAB67, [id number] #### Web Retailer: SHARDA CAM ([id number]) [facility] ([facility]) [address] [place] [address] CT HEAD WO IV CONTRASTon CT HEAD WO IV CONTRAST [facility] 1945 [id number] Exam Date/Time: 01/07/2023 04:25 Procedure: CT HEAD WO IV CONTRAST Ordering Provider: ORTEGA LAURA Reason For Exam: SDH, prior CT in PACS EXAMINATION: CT HEAD WO IV CONTRAST HISTORY: Subdural hemorrhage. TECHNIQUE: CT head without contrast. Dose reduction was employed with automated exposure control. COMPARISON: None. RESULT: Study was not presented to me for interpretation until time of dictation on 01/07/2023. 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 There is at least mild mass effect on the bilateral frontal and parietal lobes as well as right temporal lobe with areas of sulcal effacement. No midline shift or evidence of transient or herniation. Chronic change: Scattered patchy foci of low attenuation are present within supratentorial white matter which is a nonspecific finding but likely represents mild microvascular ischemia. Evidence focus of the right basal ganglia and anterior limb of the right internal capsule suggests a lacunar infarct, age indeterminate though suspected to be chronic and unchanged from prior head CT. Atherosclerotic calcifications of the carotid siphons and vertebral arteries. Ventricles: Stable normal caliber and morphology. Other: The calvarium, skull base, imaged paranasal sinuses, mastoids, orbits and extracranial soft tissues are unremarkable. IMPRESSION: Stable mixed attenuating bilateral holohemispheric subdural hemorrhages and unchanged mass effect. 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 Microvascular ischemic changes. 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 Report Dictated on Electronically Signed By: Anuj Medina MD Electronically Signed Date/Time: 01/07/2023 12:46 PM EST Subdural henatoma Pt is very uncooperative and will not hold still Pt was in the soft sugar operator head with head strap Normal [facility] CT Head WO contraston 2022 Stable mixed attenuating bilateral holohemispheric subdural hemorrhages and unchanged mass effect. 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 Microvascular ischemic changes. 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 Report Dictated on Electronically Signed By: Anuj Medina MD Electronically Signed Date/Time: 01/07/2023 12:46 PM EST [facility] Patient [facility] 1945 [id number] Exam Date/Time: 01/07/2023 04:25 Procedure: CT HEAD WO IV CONTRAST Ordering Provider: ORTEGA LAURA Reason For Exam: SDH, prior CT in PACS EXAMINATION: CT HEAD WO IV CONTRAST HISTORY: Subdural hemorrhage. TECHNIQUE: CT head without contrast. Dose reduction was employed with automated exposure control. COMPARISON: None. RESULT: Study was not presented to me for interpretation until time of dictation on 01/07/2023. 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 There is at least mild mass effect on the bilateral frontal and parietal lobes as well as right temporal lobe with areas of sulcal effacement. No midline shift or evidence of transient or herniation. Chronic change: Scattered patchy foci of low attenuation are present within supratentorial white matter which is a nonspecific finding but likely represents mild microvascular ischemia. Evidence focus of the right basal ganglia and anterior limb of the right internal capsule suggests a lacunar infarct, age indeterminate though suspected to be chronic and unchanged from prior head CT. Atherosclerotic calcifications of the carotid siphons and vertebral arteries. Ventricles: Stable normal caliber and morphology. Other: The calvarium, skull base, imaged paranasal sinuses, mastoids, orbits and extracranial soft tissues are unremarkable. [facility] Anuj Medina MD - 01/07/2023 Patient Name: ADA JUNE : 1945 [facility]#: [id number] Exam Date/Time: 01/07/2023 04:25 Procedure: CT HEAD WO IV CONTRAST Ordering Provider: ORTEGA LAURA Reason For Exam: SDH, prior CT in PACS EXAMINATION: CT HEAD WO IV CONTRAST HISTORY: Subdural hemorrhage. TECHNIQUE: CT head without contrast. Dose reduction was employed with automated exposure control. COMPARISON: None. RESULT: Study was not presented to me for interpretation until time of dictation on 01/07/2023. 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 There is at least mild mass effect on the bilateral frontal and parietal lobes as well as right temporal lobe with areas of sulcal effacement. No midline shift or evidence of transient or herniation. Chronic change: Scattered patchy foci of low attenuation are present within supratentorial white matter which is a nonspecific finding but likely represents mild microvascular ischemia. Evidence focus of the right basal ganglia and anterior limb of the right internal capsule suggests a lacunar infarct, age indeterminate though suspected to be chronic and unchanged from prior head CT. Atherosclerotic calcifications of the carotid siphons and vertebral arteries. Ventricles: Stable normal caliber and morphology. Other: The calvarium, skull base, imaged paranasal sinuses, mastoids, orbits and extracranial soft tissues are unremarkable. IMPRESSION: Stable mixed attenuating bilateral holohemispheric subdural hemorrhages and unchanged mass effect. 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 Microvascular ischemic changes. 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 Report Dictated on Electronically Signed By: Anuj Medina MD Electronically Signed Date/Time: 01/07/2023 12:46 PM EST [facility] Radiology Study observation (narrative) [facility] CT Head WO contrastOrdered B y: Anuj Medina on 01-07-2023 [employer] Work Phone: Consulton 01-07-2023 Consult Note to acknowledge consult order. See note by Dr. Forde 01/07/23 at 9:45AM. Normal [facility] Consult [facility] Service Admission Date: 01/06/2023 Admission Status: INPATIENT Chief Complaint: fall Reason for Appointment Geriatrics consulted for geriatric fall Assessment & Plan Principal Problem: SDH (subdural hematoma) (HCC) Active Problems: Acute metabolic encephalopathy Fall Cognitive impairment Debility Acute Metabolic Encephalopathy --Etiology likely Subdural hematoma, ICU environment --will be getting surgery, which may contribute to delirium --Encourage time up in chair, family visits, and sleep hygiene, PO intake when able --If agitated, assess for and consider treating for pain --QTc= 425 --No antipsychotic unless patient is danger to self/others/treatment -recommend melatonin nightly to help with sleep-wake cycle --Monitor for constipation/urinary retention - last BM unknown --Possible medication contributions: n/a Fall, debility -Multiple risk factors including diabetes, heart disease, deconditioning, cognitive impairment, neuropathy, diabetes -Continue PT/OT as able while inpatient -Vitamin D pending -recommend checking orthostatic vital signs as able -Medications with associated fall risk include: n/a Cognitive Impairment -history concerning for dementia -check tsh and vitamin b12 -Recommend follow up at [facility]) for geriatric cognitive evaluation when in usual state of health. -son is interested in moving his father into an assisted living after he is recovered from this fall. He does not think his father can live safely at home alone anymore. I spent total time of 60 minutes face to face with the patient and/or family discussing the diagnosis and importance of compliance with the treatment plan as well as documenting on the day of the visit. In addition, that total time includes the following: -Reviewing previous notes, -Reviewing labs, -Obtaining and/or reviewing separately obtained history, -Ordering prescription medications, tests and procedures, -Counseling/educating the patient/family/caregive r, -Documenting clinical information in the patients electronic record, -Coordination of care for the patient, and -Performing a medically appropriate exam and/or evaluation Subjective: HPI 77 y.o. year-old male with past medical history of cad, diabetes, hypertension, GERD, afib, heart valve replacement, ulnar neuropathy who presented to hospital after a fall on 01/06/23 and altered mental status. I reviewed patient's chart, including H&P and multiple progress notes. The following is a summary. -patient was found down in the bathtub by family. He was initially brought to [facility] ER. Found to have acute/subacute bilateral SDH, moderate in size. He was transferred to [facility]. -neurosurgery saw him this morning. Noted to be confused with garbled speech. Son noted that he has had some cognitive difficulties (ie: memory loss) since heart surgery a year ago in July. -neurosurgery recommending bilateral audie holes to evaluate the SDH. -his one year ago. Lab review BMP today: sodium 132, CBC today: hgb 11.9 Conversation with Patient: -he is aware he is in the hospital due to a fall. He says he recalls the fall: he was sitting at the edge of his tube taking a break . He lost his balance and fell backwards into the tub. Does not remember having any dizziness or lightheadedness. He is able to tell me that there is blood on the brain. -he denies headache. Does report some middle back pain. -He lives alone. He doesn't drive. His children drive him if needed. He says he does his own cooking, medications, and finances. Takes care of his own personal care. Has a rollator. -rarely drinks alcohol -has glasses. No hearing aides. -has been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 LABCLIA [id number] [place] [address] [place] Urea nitrogen [Mass/Vol] 31 mg/dL High 9-24 [facility] Comment on above: Order Comment: An cadena Type: BLOOD SPECIMENOrdering Facility: [facility] Address: [address] [place] [address] Performed By: #### 2 4323-8 ####[facility] LABCLIA [id number] [place] [address] [place] NUTRITIONon 08-28-2021 NUTRITION Normal [facility] PT panel Coag (PPP)on 2021 INR Coag (PPP) [Relative time] 2.6 {INR} High 0.9-1.3 [facility] Comment on above: Order Comment: An cadena Type: BLOOD SPECIMENOrdering Facility: [facility] Address: [address] [place] [address] Result Comment: Samantha min K Antagonist (VKA) Therapeutic Range: INR 2 to 3 (Target INR of 2.5)Note: For patients treated with VKA drugs, such as warfarin, the [place] [employer] 2012 Guideline recommends a therapeutic INR range of 2 to 3 (target INR of 2.5). This recommendation includes high-risk patients with antiphospholipid syndrome with previous arterial or venous thromboembolism, current-generation mechanical or bioprosthetic aortic heart valve replacement.Note: Patients with mechanical aortic valve replacement and additional risk factors for thromboembolic events (atrial fibrillation, previous thromboembolism, LV dysfunction, hypercoagulable conditions) or an older generation mechanical AVR (i.e., ball in-Cage) or any mechanical MVR should have a INR therapeutic range of 2.5 to 3.5 (target INR of 3).Gerard GH, et al. Chest 2012, 141:7S-47SNishimura RA, et al. [facility] 2017, 70: 252-289 Performed By: #### 3 4528-0 ####[facility] [id number] [place] [address] [place] PT Coag (PPP) [Time] 26.1 s High 9.7-13.0 [facility] Comment on above: Order Comment: Speci men Type: BLOOD SPECIMENOrdering Facility: [facility] Address: [address] [place] [address] Performed By: #### 3 4528-0 ####[facility] [id number] [address] [place] SARS-CoV-2 RNA Resp Ql FAMILIA+p robeon 08-28-2021 SARS-CoV-2 (COVID-19) RNA FAMILIA+probe Ql (Resp) COVID 19 RESULT: SARS-CoV-2 (Agent of COVID-19) Not Detected by RT-PCR or equivalent method. This test has been authorized by FDA under an Emergency Use Authorization (EUA). Normal [facility] Comment on above: Performed By: #### 9 4500-6 ####[facility] [id number] [place] [address] [place] THERAPY NTon 08-28-2021 THERAPY NT Normal [facility] THERAPY NT Normal [facility] CONSULT PROGon 08-27-2021 CONSULT PROG Normal [facility] Comprehensive metabolic 2000 panelon 08-27-2021 Albumin [Mass/Vol] 3.6 g/dL Low 3.9-4.9 [facility] Comment on above: Order Comment: Speci men Type: BLOOD SPECIMENOrdering Facility: [facility] Address: [address] [place] [address] Performed By: #### 2 4323-8 ####[facility] LABCLIA [id number] [place] [address] [place] ALP [Catalytic activity/Vol] 214 U/L High 38-113 [facility] Comment on above: Order Comment: Speci men Type: BLOOD SPECIMENOrdering Facility: [facility] Address: [address] [place] [address] Performed By: #### 2 4323-8 ####[facility] LABCLIA [id number] [place] [address] [place] ALT [Catalytic activity/Vol] 68 U/L High 10-54 [facility] Comment on above: Order Comment: Speci men Type: BLOOD SPECIMENOrdering Facility: [facility] Address: [address] [place] [address] Performed By: #### 2 4323-8 ####[facility] LABCLIA [id number] [place] [address] [place] Anion gap [Moles/Vol] 12 mmol/L Normal 9-18 [facility] Comment on above: Order Comment: Speci men Type: BLOOD SPECIMENOrdering Facility: [facility] Address: [address] [place] [address] Performed By: #### 2 4323-8 ####[facility] LABCLIA [id number] [place] [address] [place] AST [Catalytic activity/Vol] 52 U/L High 14-40 [facility] Comment on above: Order Comment: Speci men Type: BLOOD SPECIMENOrdering Facility: [facility] Address: [address] [place], [place] [address] Performed By: #### 2 4323-8 ####[facility] LABCLIA [id number] [place] [address] [place] Bilirubin [Mass/Vol] 1.2 mg/dL Normal 0.2-1.3 [facility] Comment on above: Order Comment: Speci men Type: BLOOD SPECIMENOrdering Facility: [facility] Address: [address] [place], [place] [address] Performed By: #### 2 4323-8 ####[facility] LABCLIA [id number] [place] [id number] [place] Calcium [Mass/Vol] 9.4 mg/dL Normal 8.5-10.2 [facility] Comment on above: Order Comment: Speci men Type: BLOOD SPECIMENOrdering Facility: [facility] Address: [address] [place], [place] [address] Performed By: #### 2 4323-8 ####[facility] LABCLIA [id number] [place] [address] [place] Chloride [Moles/Vol] 103 mmol/L Normal 97-105 [facility] Comment on above: Order Comment: Speci men Type: BLOOD SPECIMENOrdering Facility: [facility] Address: [address] [place], [place] [address] Performed By: #### 2 4323-8 ####[facility] LABCLIA [id number] [place] [address] [place] CO2 [Moles/Vol] 22 mmol/L Normal 22-30 [facility] Comment on above: Order Comment: Speci men Type: BLOOD SPECIMENOrdering Facility: [facility] Address: [address] [place], [place] [address] Performed By: #### 2 4323-8 ####[facility] LABCLIA [id number] [place] [address] [place] Creatinine [Mass/Vol] 0.83 mg/dL Normal 0.73-1.22 [facility] Comment on above: Order Comment: Speci men Type: BLOOD SPECIMENOrdering Facility: [facility] Address: [address] [place], [place] [address] Performed By: #### 2 4323-8 ####[facility] LABCLIA [id number] [address] ESTIMATED GLOMERULAR FILTRATION RATE 90 mL/min/1.73m??? Normal >=60 [facility] Comment on above: Order Comment: An cadena Type: BLOOD SPECIMENOrdering Facility: [facility] Address: [address] [address] Result Comment: Fabiano mated Glomerular Filtration Rate (eGFR) is calculated using the 2020 CKD-EPI creatinine equation. This equation utilizes serum creatinine, sex, and age as parameters. The creatinine assay has traceable calibration to isotope dilution-mass spectrometry. Refer to KDIGO guidelines for clinical interpretation. In patients with unstable renal function, e.g. those with acute kidney injury, the eGFR may not accurately reflect actual GFR. Performed By: #### 2 4323-8 ####[id number] [address] [facility] Glucose [Mass/Vol] 85 mg/dL Normal 74-99 [facility] Comment on above: Order Comment: An cadena Type: BLOOD SPECIMENOrdering Facility: [facility] Address: [address] [place] [address] Result Comment: The [place] Diabetes Association (ADA) provides guidance for cutoff values for fasting glucose and random glucose. The ADA defines fasting as no caloric intake for at least 8 hours. Fasting plasma glucose results between 100 to 125 mg/dL indicate increased risk for diabetes (prediabetes).Fasting plasma glucose results greater than or equal to 126 mg/dL meet the criteria for diagnosis of diabetes. In the absence of unequivocal hyperglycemia, results should be confirmed by repeat testing. In a patient with classic symptoms of hyperglycemia or hyperglycemic crisis, random plasma glucose results greater than or equal to 200 mg/dL meet the criteria for diagnosis of diabetes.Reference: Standards of Medical Care in Diabetes 2016, [place] [employer]. Diabetes Care. 2016.39(Suppl 1). Performed By: #### 2 4323-8 ####[facility] LABIA [id number] [place] [address] [place] Potassium [Moles/Vol] 4.8 mmol/L Normal 3.7-5.1 [facility] Comment on above: Order Comment: Speci men Type: BLOOD SPECIMENOrdering Facility: [facility] Address: [address] [place] [address] Performed By: #### 2 4323-8 ####[facility] LABCLIA [id number] [place] [address] [place] Protein [Mass/Vol] 7.0 g/dL Normal 6.3-8.0 [facility] Comment on above: Order Comment: Speci men Type: BLOOD SPECIMENOrdering Facility: [facility] Address: [address] [place] [address] Performed By: #### 2 4323-8 ####[facility] LABCLIA [id number] [place] [address] [place] Sodium [Moles/Vol] 137 mmol/L Normal 136-144 [facility] Comment on above: Order Comment: Speci men Type: BLOOD SPECIMENOrdering Facility: [facility] Address: [address] [place], [place] [address] Performed By: #### 2 4323-8 ####[facility] LABCLIA [id number] [place] [address] [place] Urea nitrogen [Mass/Vol] 27 mg/dL High 9-24 [facility] Comment on above: Order Comment: Speci men Type: BLOOD SPECIMENOrdering Facility: [facility] Address: [address] [place], [place] [address] Performed By: #### 2 4323-8 ####[facility] LABCLIA [id number] [place] [address] [place] PT panel Coag (PPP)on 2021 INR Coag (PPP) [Relative time] 2.3 {INR} High 0.9-1.3 [facility] Comment on above: Order Comment: An cadena Type: BLOOD SPECIMENOrdering Facility: [facility] Address: [address] [phone] Result Comment: Samantha min K Antagonist (VKA) Therapeutic Range: INR 2 to 3 (Target INR of 2.5)Note: For patients treated with VKA drugs, such as warfarin, the [place] [employer] 2012 Guideline recommends a therapeutic INR range of 2 to 3 (target INR of 2.5). This recommendation includes high-risk patients with antiphospholipid syndrome with previous arterial or venous thromboembolism, current-generation mechanical or bioprosthetic aortic heart valve replacement.Note: Patients with mechanical aortic valve replacement and additional risk factors for thromboembolic events (atrial fibrillation, previous thromboembolism, LV dysfunction, hypercoagulable conditions) or an older generation mechanical AVR (i.e., ball in-Cage) or any mechanical MVR should have a INR therapeutic range of 2.5 to 3.5 (target INR of 3).Gerard GH, et al. Chest 2012, 141:7S-47SNishimura RA, et al. [facility] 2017, 70: 252-289 Performed By: #### 3 4528-0 ####[facility] LABIA [id number] [place] [address] [place] PT Coag (PPP) [Time] 23.5 s High 9.7-13.0 [facility] Comment on above: Order Comment: An cadena Type: BLOOD SPECIMENOrdering Facility: [facility] Address: [address] [place] [address] Performed By: #### 3 4528-0 ####[facility] LABIA [id number] [place] [id number] [place] THERAPY NTon 08-27-2021 THERAPY NT Normal [facility] CBC panel Auto (Bld)on 08-26 Erythrocyte distribution width (RBC) [Ratio] 22.2 % High 11.5-15.0 [facility] Comment on above: Order Comment: An cadena Type: BLOOD SPECIMENOrdering Facility: [facility] Address: [address] [place], [place] [address] Performed By: #### 5 8410-2 ####[facility] LABCLIA [id number] [place] [address] [place] Hematocrit (Bld) [Volume fraction] 36.9 % Low 39.0-51.0 [facility] Comment on above: Order Comment: Speci men Type: BLOOD SPECIMENOrdering Facility: [facility] Address: [address] [place], [place] [address] Performed By: #### 5 8410-2 ####[facility] LABIA [id number] [place] [address] [place] Hemoglobin (Bld) [Mass/Vol] 11.4 g/dL Low 13.0-17.0 [facility] Comment on above: Order Comment: Speci men Type: BLOOD SPECIMENOrdering Facility: [facility] Address: [address] [place], [place] [address] Performed By: #### 5 8410-2 ####[facility] LABCLIA [id number] [place] [address] [place] MCH (RBC) [Entitic mass] 25.7 pg Low 26.0-34.0 [facility] Comment on above: Order Comment: Speci men Type: BLOOD SPECIMENOrdering Facility: [facility] Address: [address] [place], [place] [address] Performed By: #### 5 8410-2 ####[facility] LABCLIA [id number] [place] [address] [place] MCHC (RBC) [Mass/Vol] 30.9 g/dL Normal 30.5-36.0 [facility] Comment on above: Order Comment: Speci men Type: BLOOD SPECIMENOrdering Facility: [facility] Address: [address] [place], [place] [address] Performed By: #### 5 8410-2 ####[facility] LABCLIA [id number] [place] [address] [place] MCV (RBC) [Entitic vol] 83.3 fL Normal 80.0-100.0 [facility] Comment on above: Order Comment: Speci men Type: BLOOD SPECIMENOrdering Facility: [facility] Address: [address] [place], [place] [address] Performed By: #### 5 8410-2 ####[facility] LABIA [id number] [place] [address] [place] Nucleated RBC (Bld) [#/Vol] 10*3/uL Normal <0.01 [facility] Comment on above: Order Comment: Speci men Type: BLOOD SPECIMENOrdering Facility: [facility] Address: [address] [place], [place] [address] Performed By: #### 5 8410-2 ####[facility] [id number] [place] [address] [place] Platelet mean volume (Bld) [Entitic vol] 10.4 fL Normal 9.0-12.7 [facility] Comment on above: Order Comment: Speci men Type: BLOOD SPECIMENOrdering Facility: [facility] Address: [address] [place], [place] [address] Performed By: #### 5 8410-2 ####[facility] LABIA [id number] [place] [address] [place] Platelets (Bld) [#/Vol] 234 10*3/uL Normal 150-400 [facility] Comment on above: Order Comment: Speci men Type: BLOOD SPECIMENOrdering Facility: [facility] Address: [address] [place], [place] [address] Performed By: #### 5 8410-2 ####[facility] LABIA [id number] [place] [address] [place] RBC (Bld) [#/Vol] 4.43 10*6/uL Normal 4.20-6.00 [facility] Comment on above: Order Comment: Speci men Type: BLOOD SPECIMENOrdering Facility: [facility] Address: [address] [place] [address] Performed By: #### 5 8410-2 ####[facility] LABCLIA [id number] [place] [address] [place] WBC (Bld) [#/Vol] 8.11 10*3/uL Normal 3.70-11.00 [facility] Comment on above: Order Comment: Speci men Type: BLOOD SPECIMENOrdering Facility: [facility] Address: [address] [place] [address] Performed By: #### 5 8410-2 ####[facility] LABCLIA [id number] [place] [address] [place] Comprehensive metabolic 2000 panelon 08-26-2021 Albumin [Mass/Vol] 3.7 g/dL Low 3.9-4.9 [facility] Comment on above: Order Comment: Speci men Type: BLOOD SPECIMENOrdering Facility: [facility] Address: [address] [place] [address] Performed By: #### 2 4323-8 ####[facility] LABCLIA [id number] [place] [address] [place] ALP [Catalytic activity/Vol] 199 U/L High 38-113 [facility] Comment on above: Order Comment: Speci men Type: BLOOD SPECIMENOrdering Facility: [facility] Address: [address] [place] [address] Performed By: #### 2 4323-8 ####[facility] LABCLIA [id number] [place] [address] [place] ALT [Catalytic activity/Vol] 65 U/L High 10-54 [facility] Comment on above: Order Comment: Speci men Type: BLOOD SPECIMENOrdering Facility: [facility] Address: [address] [place], [place] [address] Performed By: #### 2 4323-8 ####[facility] LABCLIA [id number] [place] [address] [place] Anion gap [Moles/Vol] 10 mmol/L Normal 9-18 [facility] Comment on above: Order Comment: Speci men Type: BLOOD SPECIMENOrdering Facility: [facility] Address: [address] [place], [place] [address] Performed By: #### 2 4323-8 ####[facility] LABCLIA [id number] [place] [address] [place] AST [Catalytic activity/Vol] 49 U/L High 14-40 [facility] Comment on above: Order Comment: Speci men Type: BLOOD SPECIMENOrdering Facility: [facility] Address: [address] [place], [place] [address] Performed By: #### 2 4323-8 ####[facility] LABCLIA [id number] [place] [address] [place] Bilirubin [Mass/Vol] 1.3 mg/dL Normal 0.2-1.3 [facility] Comment on above: Order Comment: Speci men Type: BLOOD SPECIMENOrdering Facility: [facility] Address: [address] [place] [address] Performed By: #### 2 4323-8 ####[facility] LABCLIA [id number] [place] [address] [place] Calcium [Mass/Vol] 9.2 mg/dL Normal 8.5-10.2 [facility] Comment on above: Order Comment: Speci men Type: BLOOD SPECIMENOrdering Facility: [facility] Address: [address] [place], [place] [address] Performed By: #### 2 4323-8 ####[facility] LABCLIA [id number] [place] [address] [place] Chloride [Moles/Vol] 104 mmol/L Normal 97-105 [facility] Comment on above: Order Comment: Speci men Type: BLOOD SPECIMENOrdering Facility: [facility] Address: [address] [place] [address] Performed By: #### 2 4323-8 ####[facility] LABCLIA [id number] [place] [address] [place] CO2 [Moles/Vol] 25 mmol/L Normal 22-30 [facility] Comment on above: Order Comment: Speci men Type: BLOOD SPECIMENOrdering Facility: [facility] Address: [address] [place] [address] Performed By: #### 2 4323-8 ####[facility] LABCLIA [id number] [address] STATES OF [facility] Creatinine [Mass/Vol] 0.93 mg/dL Normal 0.73-1.22 [facility] Comment on above: Order Comment: Speci men Type: BLOOD SPECIMENOrdering Facility: [facility] Address: [address] [place] [address] Performed By: #### 2 4323-8 ####[facility] LABCLIA [id number] [address] OF [facility] ESTIMATED GLOMERULAR FILTRATION RATE 84 mL/min/1.73m??? Normal >=60 [facility] Comment on above: Order Comment: Speci men Type: BLOOD SPECIMENOrdering Facility: [facility] Address: [address] [place] [address] Result Comment: Fabiano mated Glomerular Filtration Rate (eGFR) is calculated using the 2020 CKD-EPI creatinine equation. This equation utilizes serum creatinine, sex, and age as parameters. The creatinine assay has traceable calibration to isotope dilution-mass spectrometry. Refer to KDIGO guidelines for clinical interpretation. In patients with unstable renal function, e.g. those with acute kidney injury, the eGFR may not accurately reflect actual GFR. Performed By: #### 2 4323-8 ####[facility] LABCLIA [id number] [address] [address] [place] Glucose [Mass/Vol] 98 mg/dL Normal 74-99 [facility] Comment on above: Order Comment: Speci men Type: BLOOD SPECIMENOrdering Facility: [facility] Address: [address] [place], [place] [phone] Result Comment: The [place] Diabetes Association (ADA) provides guidance for cutoff values for fasting glucose and random glucose. The ADA defines fasting as no caloric intake for at least 8 hours. Fasting plasma glucose results between 100 to 125 mg/dL indicate increased risk for diabetes (prediabetes).Fasting plasma glucose results greater than or equal to 126 mg/dL meet the criteria for diagnosis of diabetes. In the absence of unequivocal hyperglycemia, results should be confirmed by repeat testing. In a patient with classic symptoms of hyperglycemia or hyperglycemic crisis, random plasma glucose results greater than or equal to 200 mg/dL meet the criteria for diagnosis of diabetes.Reference: Standards of Medical Care in Diabetes 2016, [place] [employer]. Diabetes Care. 2016.39(Suppl 1). Performed By: #### 2 4323-8 ####[facility] LABIA [id number] [place] [address] [place] Potassium [Moles/Vol] 4.8 mmol/L Normal 3.7-5.1 [facility] Comment on above: Order Comment: Speci men Type: BLOOD SPECIMENOrdering Facility: [facility] Address: [address] [phone] Performed By: #### 2 4323-8 ####[facility] LABIA [id number] [place] [id number] [place] Protein [Mass/Vol] 6.9 g/dL Normal 6.3-8.0 [facility] Comment on above: Order Comment: Speci men Type: BLOOD SPECIMENOrdering Facility: [facility] Address: [address] [address] Performed By: #### 2 4323-8 ####[facility] LABCLIA [id number] [place] [address] [place] Sodium [Moles/Vol] 139 mmol/L Normal 136-144 [facility] Comment on above: Order Comment: Speci men Type: BLOOD SPECIMENOrdering Facility: [facility] Address: [address] [place] [address] Performed By: #### 2 4323-8 ####[facility] LABCLIA [id number] [place] [address] [place] Urea nitrogen [Mass/Vol] 27 mg/dL High 9-24 [facility] Comment on above: Order Comment: Cmi men Type: BLOOD SPECIMENOrdering Facility: [facility] Address: [address] [place] [address] Performed By: #### 2 4323-8 ####[facility] LABCLIA [id number] [place] [address] [place] PT panel Coag (PPP)on 2021 INR Coag (PPP) [Relative time] 2.1 {INR} High 0.9-1.3 [facility] Comment on above: Order Comment: An cadena Type: BLOOD SPECIMENOrdering Facility: [facility] Address: [address] [place] [address] Result Comment: Samantha min K Antagonist (VKA) Therapeutic Range: INR 2 to 3 (Target INR of 2.5)Note: For patients treated with VKA drugs, such as warfarin, the [place] [employer] 2012 Guideline recommends a therapeutic INR range of 2 to 3 (target INR of 2.5). This recommendation includes high-risk patients with antiphospholipid syndrome with previous arterial or venous thromboembolism, current-generation mechanical or bioprosthetic aortic heart valve replacement.Note: Patients with mechanical aortic valve replacement and additional risk factors for thromboembolic events (atrial fibrillation, previous thromboembolism, LV dysfunction, hypercoagulable conditions) or an older generation mechanical AVR (i.e., ball in-Cage) or any mechanical MVR should have a INR therapeutic range of 2.5 to 3.5 (target INR of 3).Gerard GH, et al. Chest 2012, 141:7S-47SNishimura RA, et al. [facility] 2017, 70: 252-289 Performed By: #### 3 4528-0 ####[facility] LABIA [id number] [place] [address] [place] PT Coag (PPP) [Time] 21.3 s High 9.7-13.0 [facility] Comment on above: Order Comment: Speci men Type: BLOOD SPECIMENOrdering Facility: [facility] Address: [address] [place] [address] Performed By: #### 3 4528-0 ####[facility] LABIA [id number] [address] [place] Urinalysis complete panel (U )on 08-26-2021 Bilirubin Ql (U) Negative Normal Negative [facility] Comment on above: Order Comment: Speci men Type: URINE SPECIMENOrdering Facility: [facility] Address: [address] [place] [address] Performed By: #### 2 4356-8 ####[facility] [id number] [place] [address] [place] Clarity (Unsp spec) Slightly Cloudy Abnormal Clear [facility] Comment on above: Order Comment: Speci men Type: URINE SPECIMENOrdering Facility: [facility] Address: [address] [place] [address] Performed By: #### 2 4356-8 ####[facility] LABIA [id number] [address] [place] Color (U) Light Nargis Abnormal Yellow [facility] Comment on above: Order Comment: Speci men Type: URINE SPECIMENOrdering Facility: [facility] Address: [address] [place] [address] Performed By: #### 2 4356-8 ####[facility] LABCLIA [id number] [place] [address] [place] Epithelial cells LM.HPF (Urine sed) [#/Area] Few Normal [facility] Comment on above: Order Comment: Speci men Type: URINE SPECIMENOrdering Facility: [facility] Address: [address] [place], [place] [address] Performed By: #### 2 4356-8 ####[facility] LABCLIA [id number] [address] [place] Glucose Test strip (U) [Mass/Vol] Negative Normal Negative [facility] Comment on above: Order Comment: Speci men Type: URINE SPECIMENOrdering Facility: [facility] Address: [address] [place], [place] [address] Performed By: #### 2 4356-8 ####[facility] LABCLIA [id number] [place] [address] [place] Hemoglobin Ql (U) Negative Normal Negative [facility] Comment on above: Order Comment: Speci men Type: URINE SPECIMENOrdering Facility: [facility] Address: [address] [place], [place] [address] Performed By: #### 2 4356-8 ####[facility] LABCLIA [id number] [place] [address] [place] Ketones Ql (U) Negative Normal Negative [facility] Comment on above: Order Comment: Speci men Type: URINE SPECIMENOrdering Facility: [facility] Address: [address] [place], [place] [address] Performed By: #### 2 4356-8 ####[facility] LABCLIA [id number] [place] [address] [place] Leukocyte esterase Test strip Ql (U) Negative Normal Negative [facility] Comment on above: Order Comment: Speci men Type: URINE SPECIMENOrdering Facility: [facility] Address: [address] [place], [place] [address] Performed By: #### 2 4356-8 ####[facility] LABCLIA [id number] [place] [address] [place] Nitrite Ql (U) Negative Normal Negative [facility] Comment on above: Order Comment: Speci men Type: URINE SPECIMENOrdering Facility: [facility] Address: [address] [place], [place] [address] Performed By: #### 2 4356-8 ####[facility] LABCLIA [id number] [place] [address] [place] pH (U) 5.0 [pH] Normal 5.0-8.0 [facility] Comment on above: Order Comment: Speci men Type: URINE SPECIMENOrdering Facility: [facility] Address: [address] [place], [place] [address] Performed By: #### 2 4356-8 ####[facility] LABCLIA [id number] [place] [address] [place] Protein (U) [Mass/Vol] Negative Normal Negative [facility] Comment on above: Order Comment: Speci men Type: URINE SPECIMENOrdering Facility: [facility] Address: [address] [place], [place] [address] Performed By: #### 2 4356-8 ####[facility] LABCLIA [id number] [place] [address] [place] RBC LM.HPF (Urine sed) [#/Area] 0-3 /HPF Normal 0-3 /HPF [facility] Comment on above: Order Comment: Speci men Type: URINE SPECIMENOrdering Facility: [facility] Address: [address] [place], [place] [address] Performed By: #### 2 4356-8 ####[facility] LABCLIA [id number] [place] [address] [place] Specific gravity (U) [Rel density] 1.021 Normal 1.005-1.030 [facility] Comment on above: Order Comment: Speci men Type: URINE SPECIMENOrdering Facility: [facility] Address: [address] [place] [address] Performed By: #### 2 4356-8 ####[facility] LABCLIA [id number] [place] [address] [place] Urobilinogen Ql (U) 1+ Abnormal Negative [facility] Comment on above: Order Comment: Speci men Type: URINE SPECIMENOrdering Facility: [facility] Address: [address] [place] [address] Performed By: #### 2 4356-8 ####[facility] LABIA [id number] [place] [address] [place] WBC LM.HPF (Urine sed) [#/Area] 0-5 /HPF Normal 0-5 /HPF [facility] Comment on above: Order Comment: Speci men Type: URINE SPECIMENOrdering Facility: [facility] Address: [address] [place] [address] Performed By: #### 2 4356-8 ####[facility] LABIA [id number] [place] [address] [place] CONSULT PROGon 08-25-2021 CONSULT PROG Normal [facility] Comprehensive metabolic 2000 panelon 08-25-2021 Albumin [Mass/Vol] 3.6 g/dL Low 3.9-4.9 [facility] Comment on above: Order Comment: Speci men Type: BLOOD SPECIMENOrdering Facility: [facility] Address: [address] [place] [address] Performed By: #### 2 4323-8, 98980-7 ####[facility] LABCLIA [id number] [place] [address] [place] ALP [Catalytic activity/Vol] 190 U/L High 38-113 [facility] Comment on above: Order Comment: Speci men Type: BLOOD SPECIMENOrdering Facility: [facility] Address: [address] [place] [address] Performed By: #### 2 4323-8, 02019-3 ####[facility] LABCLIA [id number] [place] [address] [place] ALT [Catalytic activity/Vol] 58 U/L High 10-54 [facility] Comment on above: Order Comment: Speci men Type: BLOOD SPECIMENOrdering Facility: [facility] Address: [address] [place] [address] Performed By: #### 2 4323-8, 88321-9 ####[facility] LABCLIA [id number] [place] [address] [place] Anion gap [Moles/Vol] 10 mmol/L Normal 9-18 [facility] Comment on above: Order Comment: Speci men Type: BLOOD SPECIMENOrdering Facility: [facility] Address: [address] [place], [place] [address] Performed By: #### 2 4323-8, 85739-3 ####[facility] LABCLIA [id number] [place] [address] [place] AST [Catalytic activity/Vol] 44 U/L High 14-40 [facility] Comment on above: Order Comment: Speci men Type: BLOOD SPECIMENOrdering Facility: [facility] Address: [address] [place], [place] [address] Performed By: #### 2 4323-8, 85270-9 ####[facility] LABCLIA [id number] [place] [address] [place] Bilirubin [Mass/Vol] 1.3 mg/dL Normal 0.2-1.3 [facility] Comment on above: Order Comment: Speci men Type: BLOOD SPECIMENOrdering Facility: [facility] Address: [address] Performed By: #### 2 4323-8, 08426-3 ####[facility] LABCLIA [id number] [place] [address] [place] Calcium [Mass/Vol] 9.2 mg/dL Normal 8.5-10.2 [facility] Comment on above: Order Comment: Speci men Type: BLOOD SPECIMENOrdering Facility: [facility] Address: [address] [place], [place] [address] Performed By: #### 2 4323-8, 16416-7 ####[facility] LABCLIA [id number] [place] [address] [place] Chloride [Moles/Vol] 104 mmol/L Normal 97-105 [facility] Comment on above: Order Comment: Speci men Type: BLOOD SPECIMENOrdering Facility: [facility] Address: [address] [place], [place] [address] Performed By: #### 2 4323-8, 66056-5 ####[facility] LABCLIA [id number] [place] [address] [place] CO2 [Moles/Vol] 26 mmol/L Normal 22-30 [facility] Comment on above: Order Comment: Speci men Type: BLOOD SPECIMENOrdering Facility: [facility] Address: [address] [place], [place] [address] Performed By: #### 2 4323-8, 64347-9 ####[facility] LABCLIA [id number] [place] [address] [place] Creatinine [Mass/Vol] 0.98 mg/dL Normal 0.73-1.22 [facility] Comment on above: Order Comment: Speci men Type: BLOOD SPECIMENOrdering Facility: [facility] Address: [address] [place] [address] Performed By: #### 2 4323-8, 92986-3 ####[facility] [id number] [place] [address] [place] ESTIMATED GLOMERULAR FILTRATION RATE 79 mL/min/1.73m??? Normal >=60 [facility] Comment on above: Order Comment: An cadena Type: BLOOD SPECIMENOrdering Facility: [facility] Address: [address] [place] [address] Result Comment: Fabiano mated Glomerular Filtration Rate (eGFR) is calculated using the 2020 CKD-EPI creatinine equation. This equation utilizes serum creatinine, sex, and age as parameters. The creatinine assay has traceable calibration to isotope dilution-mass spectrometry. Refer to KDIGO guidelines for clinical interpretation. In patients with unstable renal function, e.g. those with acute kidney injury, the eGFR may not accurately reflect actual GFR. Performed By: #### 2 4323-8, 89957-0 ####[facility] LABIA [id number] [place] [address] [place] Glucose [Mass/Vol] 92 mg/dL Normal 74-99 [facility] Comment on above: Order Comment: An cadena Type: BLOOD SPECIMENOrdering Facility: [facility] Address: [address] [place] [address] Result Comment: The [place] [employer] (ADA) provides guidance for cutoff values for fasting glucose and random glucose. The ADA defines fasting as no caloric intake for at least 8 hours. Fasting plasma glucose results between 100 to 125 mg/dL indicate increased risk for diabetes (prediabetes).Fasting plasma glucose results greater than or equal to 126 mg/dL meet the criteria for diagnosis of diabetes. In the absence of unequivocal hyperglycemia, results should be confirmed by repeat testing. In a patient with classic symptoms of hyperglycemia or hyperglycemic crisis, random plasma glucose results greater than or equal to 200 mg/dL meet the criteria for diagnosis of diabetes.Reference: Standards of Medical Care in Diabetes 2016, [place] [employer]. Diabetes Care. 2016.39(Suppl 1). Performed By: #### 2 4323-8, 80917-3 ####[facility] LABCLIA [id number] [place] [address] [place] Potassium [Moles/Vol] 5.5 mmol/L High 3.7-5.1 [facility] Comment on above: Order Comment: Speci men Type: BLOOD SPECIMENOrdering Facility: [facility] Address: [address] [place], [place] [address] Performed By: #### 2 4323-8, 57160-7 ####[facility] LABCLIA [id number] [place] [address] [place] Protein [Mass/Vol] 6.9 g/dL Normal 6.3-8.0 [facility] Comment on above: Order Comment: Speci men Type: BLOOD SPECIMENOrdering Facility: [facility] Address: [address] [place] [address] Performed By: #### 2 4323-8, 78897-1 ####[facility] LABIA [id number] [place] [address] [place] Sodium [Moles/Vol] 140 mmol/L Normal 136-144 [facility] Comment on above: Order Comment: Speci men Type: BLOOD SPECIMENOrdering Facility: [facility] Address: [address] [place], [place] [address] Performed By: #### 2 4323-8, 69343-4 ####[facility] LABCLIA [id number] [place] [address] [place] Urea nitrogen [Mass/Vol] 40 mg/dL High 9-24 [facility] Comment on above: Order Comment: Speci men Type: BLOOD SPECIMENOrdering Facility: [facility] Address: [address] [place], [place] [address] Performed By: #### 2 4323-8, 66691-4 ####[facility] LABCLIA [id number] [address] NT-proBNP SerPl-mCncon 08-25 Natriuretic peptide.B prohormone N-Terminal [Mass/Vol] 1828 pg/mL High <450 [facility] Comment on above: Order Comment: Speci men Type: BLOOD SPECIMENOrdering Facility: [facility] Address: [address] [place] [address] Performed By: #### 2 4323-8, 94289-1 ####[facility] LABIA [id number] [address] Natriuretic peptide.B prohormone N-Terminal [Mass/Vol] 1612 pg/mL High <450 [facility] Comment on above: Order Comment: Speci men Type: BLOOD SPECIMENOrdering Facility: [facility] Address: [address] [place] [address] Performed By: #### 3 3762-6 ####[facility] LABIA [id number] [place] [address] [place] NURSING PROGon 08-25-2021 NURSING PROG Normal [facility] NURSING PROG Normal [facility] POTASSIUM BLDon 08-25-2021 Potassium [Moles/Vol] 5.0 mmol/L Normal 3.7-5.1 [facility] Comment on above: Order Comment: Speci men Type: BLOOD SPECIMENOrdering Facility: [facility] Address: [address] [place], [place] [address] Performed By: #### K 1 ####[facility] LABIA [id number] [place] [address] [place] PT panel Coag (PPP)on 2021 INR Coag (PPP) [Relative time] 1.7 {INR} High 0.9-1.3 [facility] Comment on above: Order Comment: Speci men Type: BLOOD SPECIMENOrdering Facility: [facility] Address: [address] [place], [place] [address] Result Comment: Samantha min K Antagonist (VKA) Therapeutic Range: INR 2 to 3 (Target INR of 2.5)Note: For patients treated with VKA drugs, such as warfarin, the [place] [employer] 2012 Guideline recommends a therapeutic INR range of 2 to 3 (target INR of 2.5). This recommendation includes high-risk patients with antiphospholipid syndrome with previous arterial or venous thromboembolism, current-generation mechanical or bioprosthetic aortic heart valve replacement.Note: Patients with mechanical aortic valve replacement and additional risk factors for thromboembolic events (atrial fibrillation, previous thromboembolism, LV dysfunction, hypercoagulable conditions) or an older generation mechanical AVR (i.e., ball in-Cage) or any mechanical MVR should have a INR therapeutic range of 2.5 to 3.5 (target INR of 3).Gerard GH, et al. Chest 2012, 141:7S-47SNishdorene RA, et al. [facility] 2017, 70: 252-289 Performed By: #### 3 4528-0 ####[facility] LABIA [id number] [place] [address] [place] PT Coag (PPP) [Time] 17.7 s High 9.7-13.0 [facility] Comment on above: Order Comment: Speci men Type: BLOOD SPECIMENOrdering Facility: [facility] Address: [address] [place] [address] Performed By: #### 3 4528-0 ####[facility] LABIA [id number] [place] [address] [place] CBC panel Auto (Bld)on 08-24 Erythrocyte distribution width (RBC) [Ratio] 22.5 % High 11.5-15.0 [facility] Comment on above: Order Comment: Speci men Type: BLOOD SPECIMENOrdering Facility: [facility] Address: [address] [place] [address] Performed By: #### 5 8410-2 ####[facility] LABIA [id number] [place] [address] [place] Hematocrit (Bld) [Volume fraction] 40.4 % Normal 39.0-51.0 [facility] Comment on above: Order Comment: Speci men Type: BLOOD SPECIMENOrdering Facility: [facility] Address: [address] [place] [address] Performed By: #### 5 8410-2 ####[facility] LABCLIA [id number] [place] [address] [place] Hemoglobin (Bld) [Mass/Vol] 12.4 g/dL Low 13.0-17.0 [facility] Comment on above: Order Comment: Speci men Type: BLOOD SPECIMENOrdering Facility: [facility] Address: [address] [place] [address] Performed By: #### 5 8410-2 ####[facility] LABCLIA [id number] [address] STATES OF [facility] MCH (RBC) [Entitic mass] 25.5 pg Low 26.0-34.0 [facility] Comment on above: Order Comment: Speci men Type: BLOOD SPECIMENOrdering Facility: [facility] Address: [address] [place] [address] Performed By: #### 5 8410-2 ####[facility] LABCLIA [id number] [place] [address] [place] MCHC (RBC) [Mass/Vol] 30.7 g/dL Normal 30.5-36.0 [facility] Comment on above: Order Comment: Speci men Type: BLOOD SPECIMENOrdering Facility: [facility] Address: [address] [place], [place] [address] Performed By: #### 5 8410-2 ####[facility] LABCLIA [id number] [place] [address] [place] MCV (RBC) [Entitic vol] 83.1 fL Normal 80.0-100.0 [facility] Comment on above: Order Comment: Speci men Type: BLOOD SPECIMENOrdering Facility: [facility] Address: [address] [place], [place] [address] Performed By: #### 5 8410-2 ####[facility] LABIA [id number] [place] [address] [place] Nucleated RBC (Bld) [#/Vol] 10*3/uL Normal <0.01 [facility] Comment on above: Order Comment: Speci men Type: BLOOD SPECIMENOrdering Facility: [facility] Address: [address] [place], [place] [address] Performed By: #### 5 8410-2 ####[facility] LABIA [id number] [place] [address] [place] Platelet mean volume (Bld) [Entitic vol] 9.9 fL Normal 9.0-12.7 [facility] Comment on above: Order Comment: Speci men Type: BLOOD SPECIMENOrdering Facility: [facility] Address: [address] [place], [place] [address] Performed By: #### 5 8410-2 ####[facility] LABIA [id number] [place] [address] [place] Platelets (Bld) [#/Vol] 291 10*3/uL Normal 150-400 [facility] Comment on above: Order Comment: Speci men Type: BLOOD SPECIMENOrdering Facility: [facility] Address: [address] [place], [place] [address] Performed By: #### 5 8410-2 ####[facility] LABIA [id number] [place] [address] [place] RBC (Bld) [#/Vol] 4.86 10*6/uL Normal 4.20-6.00 [facility] Comment on above: Order Comment: Speci men Type: BLOOD SPECIMENOrdering Facility: [facility] Address: [address] [place], [place] [address] Performed By: #### 5 8410-2 ####[facility] LABCLIA [id number] [place] [address] [place] WBC (Bld) [#/Vol] 9.22 10*3/uL Normal 3.70-11.00 [facility] Comment on above: Order Comment: Speci men Type: BLOOD SPECIMENOrdering Facility: [facility] Address: [address] [place], [place] [address] Performed By: #### 5 8410-2 ####[facility] LABCLIA [id number] [place] [address] [place] CONSULT PROGon 08-24-2021 CONSULT PROG Normal [facility] CONSULT PROG Normal [facility] Comprehensive metabolic 2000 panelon 08-24-2021 Albumin [Mass/Vol] 4.2 g/dL Normal 3.9-4.9 [facility] Comment on above: Order Comment: Speci men Type: BLOOD SPECIMENOrdering Facility: [facility] Address: [address] [place], [place] [address] Performed By: #### 2 4323-8 ####[facility] LABCLIA [id number] [place] [address] [place] ALP [Catalytic activity/Vol] 221 U/L High 38-113 [facility] Comment on above: Order Comment: Speci men Type: BLOOD SPECIMENOrdering Facility: [facility] Address: [address] [place], [place] [address] Performed By: #### 2 4323-8 ####[facility] LABCLIA [id number] [place] [address] [place] ALT [Catalytic activity/Vol] 77 U/L High 10-54 [facility] Comment on above: Order Comment: Speci men Type: BLOOD SPECIMENOrdering Facility: [facility] Address: [address] [place] [address] Performed By: #### 2 4323-8 ####[facility] LABCLIA [id number] [place] [address] [place] Anion gap [Moles/Vol] 11 mmol/L Normal 9-18 [facility] Comment on above: Order Comment: Speci men Type: BLOOD SPECIMENOrdering Facility: [facility] Address: [address] [place] [address] Performed By: #### 2 4323-8 ####[facility] LABCLIA [id number] [place] [address] [place] AST [Catalytic activity/Vol] 61 U/L High 14-40 [facility] Comment on above: Order Comment: Speci men Type: BLOOD SPECIMENOrdering Facility: [facility] Address: [address] [place] [address] Performed By: #### 2 4323-8 ####[facility] [facility] LABCLIA [id number] [place] [address] [place] Bilirubin [Mass/Vol] 1.4 mg/dL High 0.2-1.3 [facility] Comment on above: Order Comment: Speci men Type: BLOOD SPECIMENOrdering Facility: [facility] Address: [address] [place] [address] Performed By: #### 2 4323-8 ####[facility] LABCLIA [id number] [place] [address] [place] Calcium [Mass/Vol] 9.7 mg/dL Normal 8.5-10.2 [facility] Comment on above: Order Comment: Speci men Type: BLOOD SPECIMENOrdering Facility: [facility] Address: [address] [place], [place] [address] Performed By: #### 2 4323-8 ####[facility] LABCLIA [id number] [place] [address] [place] Chloride [Moles/Vol] 101 mmol/L Normal 97-105 [facility] Comment on above: Order Comment: Speci men Type: BLOOD SPECIMENOrdering Facility: [facility] Address: [address] [place], [place] [address] Performed By: #### 2 4323-8 ####[facility] LABCLIA [id number] [place] [address] [place] CO2 [Moles/Vol] 25 mmol/L Normal 22-30 [facility] Comment on above: Order Comment: Speci men Type: BLOOD SPECIMENOrdering Facility: [facility] Address: [address] [place] [address] Performed By: #### 2 4323-8 ####[facility] LABCLIA [id number] [address] STATES OF [facility] Creatinine [Mass/Vol] 1.05 mg/dL Normal 0.73-1.22 [facility] Comment on above: Order Comment: Speci men Type: BLOOD SPECIMENOrdering Facility: [facility] Address: [address] [place], [place] [address] Performed By: #### 2 4323-8 ####[facility] LABCLIA [id number] [address] STATES OF [facility] ESTIMATED GLOMERULAR FILTRATION RATE 73 mL/min/1.73m??? Normal >=60 [facility] Comment on above: Order Comment: Speci men Type: BLOOD SPECIMENOrdering Facility: [facility] Address: [address] [place], [place] [address] Result Comment: Fabiano mated Glomerular Filtration Rate (eGFR) is calculated using the 2020 CKD-EPI creatinine equation. This equation utilizes serum creatinine, sex, and age as parameters. The creatinine assay has traceable calibration to isotope dilution-mass spectrometry. Refer to KDIGO guidelines for clinical interpretation. In patients with unstable renal function, e.g. those with acute kidney injury, the eGFR may not accurately reflect actual GFR. Performed By: #### 2 4323-8 ####[facility] LABCLIA [id number] [place] [address] [place] Glucose [Mass/Vol] 145 mg/dL High 74-99 [facility] Comment on above: Order Comment: Speci men Type: BLOOD SPECIMENOrdering Facility: [facility] Address: [address] [place] [address] Result Comment: The [place] Diabetes Association (ADA) provides guidance for cutoff values for fasting glucose and random glucose. The ADA defines fasting as no caloric intake for at least 8 hours. Fasting plasma glucose results between 100 to 125 mg/dL indicate increased risk for diabetes (prediabetes).Fasting plasma glucose results greater than or equal to 126 mg/dL meet the criteria for diagnosis of diabetes. In the absence of unequivocal hyperglycemia, results should be confirmed by repeat testing. In a patient with classic symptoms of hyperglycemia or hyperglycemic crisis, random plasma glucose results greater than or equal to 200 mg/dL meet the criteria for diagnosis of diabetes.Reference: Standards of Medical Care in Diabetes 2016, [place] [employer]. Diabetes Care. 2016.39(Suppl 1). Performed By: #### 2 4323-8 ####[facility] LABIA [id number] [place] [address] [place] Potassium [Moles/Vol] 4.7 mmol/L Normal 3.7-5.1 [facility] Comment on above: Order Comment: Speci men Type: BLOOD SPECIMENOrdering Facility: [facility] Address: [address] [place] [address] Performed By: #### 2 4323-8 ####[facility] LABCLIA [id number] [place] [address] [place] Protein [Mass/Vol] 8.2 g/dL High 6.3-8.0 [facility] Comment on above: Order Comment: Speci men Type: BLOOD SPECIMENOrdering Facility: [facility] Address: [address] [place] [address] Performed By: #### 2 4323-8 ####[facility] LABCLIA [id number] [place] [address] [place] Sodium [Moles/Vol] 137 mmol/L Normal 136-144 [facility] Comment on above: Order Comment: An cadena Type: BLOOD SPECIMENOrdering Facility: [facility] Address: [address] [place] [address] Performed By: #### 2 4323-8 ####[facility] LABCLIA [id number] [address] [place] Urea nitrogen [Mass/Vol] 50 mg/dL High 11-24 [facility] Comment on above: Order Comment: An cadena Type: BLOOD SPECIMENOrdering Facility: [facility] Address: [address] [place] [address] Performed By: #### 2 4323-8 ####[facility] LABCLIA [id number] [address] [place] PT panel Coag (PPP)on 2021 INR Coag (PPP) [Relative time] 1.7 {INR} High 0.9-1.3 [facility] Comment on above: Order Comment: An cadena Type: BLOOD SPECIMENOrdering Facility: [facility] Address: [address] [place] [address] Result Comment: Samantha min K Antagonist (VKA) Therapeutic Range: INR 2 to 3 (Target INR of 2.5)Note: For patients treated with VKA drugs, such as warfarin, the [place] [employer] 2012 Guideline recommends a therapeutic INR range of 2 to 3 (target INR of 2.5). This recommendation includes high-risk patients with antiphospholipid syndrome with previous arterial or venous thromboembolism, current-generation mechanical or bioprosthetic aortic heart valve replacement.Note: Patients with mechanical aortic valve replacement and additional risk factors for thromboembolic events (atrial fibrillation, previous thromboembolism, LV dysfunction, hypercoagulable conditions) or an older generation mechanical AVR (i.e., ball in-Cage) or any mechanical MVR should have a INR therapeutic range of 2.5 to 3.5 (target INR of 3).Guyatt GH, et al. Chest 2012, 141:7S-47SJohnnyimtayler RA, et al. [facility] 2017, 70: 252-289 Performed By: #### 3 4528-0 ####[facility] LABCLIA [id number] [place] [address] [place] PT Coag (PPP) [Time] 17.2 s High 9.7-13.0 [facility] Comment on above: Order Comment: Speci men Type: BLOOD SPECIMENOrdering Facility: [facility] Address: [address] [place] [address] Performed By: #### 3 4528-0 ####[facility] LABIA [id number] [place] [address] [place] THERAPY NTon 08-24-2021 THERAPY NT Normal [facility] XR CHEST 2V FRONTAL/LATon XR CHEST 2V FRONTAL/LAT Normal [facility] CASE MANAGEMon 08-23-2021 CASE MANAGEM Normal [facility] Comprehensive metabolic 2000 panelon 08-23-2021 Albumin [Mass/Vol] 3.7 g/dL Low 3.9-4.9 [facility] Comment on above: Order Comment: Speci men Type: BLOOD SPECIMENOrdering Facility: [facility] Address: [address] [place], [place] [address] Performed By: #### 2 4323-8 ####[facility] LABCLIA [id number] [place] [address] [place] ALP [Catalytic activity/Vol] 187 U/L High 38-113 [facility] Comment on above: Order Comment: Speci men Type: BLOOD SPECIMENOrdering Facility: [facility] Address: [address] [place], [place] [address] Performed By: #### 2 4323-8 ####[facility] LABCLIA [id number] [place] [address] [place] ALT [Catalytic activity/Vol] 60 U/L High 10-54 [facility] Comment on above: Order Comment: Speci men Type: BLOOD SPECIMENOrdering Facility: [facility] Address: [address] [place] [address] Performed By: #### 2 4323-8 ####[facility] LABCLIA [id number] [place] [address] [place] Anion gap [Moles/Vol] 13 mmol/L Normal 9-18 [facility] Comment on above: Order Comment: Speci men Type: BLOOD SPECIMENOrdering Facility: [facility] Address: [address] [place], [place] [address] Performed By: #### 2 4323-8 ####[facility] LABCLIA [id number] [place] [address] [place] AST [Catalytic activity/Vol] 41 U/L High 14-40 [facility] Comment on above: Order Comment: Speci men Type: BLOOD SPECIMENOrdering Facility: [facility] Address: [address] [place] [address] Performed By: #### 2 4323-8 ####[facility] LABCLIA [id number] [place] [address] [place] Bilirubin [Mass/Vol] 1.3 mg/dL Normal 0.2-1.3 [facility] Comment on above: Order Comment: Speci men Type: BLOOD SPECIMENOrdering Facility: [facility] Address: [address] [place] [address] Performed By: #### 2 4323-8 ####[facility] LABCLIA [id number] [place] [address] [place] Calcium [Mass/Vol] 9.5 mg/dL Normal 8.5-10.2 [facility] Comment on above: Order Comment: Speci men Type: BLOOD SPECIMENOrdering Facility: [facility] Address: [address] [place], [place] [address] Performed By: #### 2 4323-8 ####[facility] LABCLIA [id number] [place] [address] [place] Chloride [Moles/Vol] 100 mmol/L Normal 97-105 [facility] Comment on above: Order Comment: Speci men Type: BLOOD SPECIMENOrdering Facility: [facility] Address: [address] [place], [place] [address] Performed By: #### 2 4323-8 ####[facility] LABCLIA [id number] [place] [address] [place] CO2 [Moles/Vol] 24 mmol/L Normal 22-30 [facility] Comment on above: Order Comment: Speci men Type: BLOOD SPECIMENOrdering Facility: [facility] Address: [address] [place] [address] Performed By: #### 2 4323-8 ####[facility] LABIA [id number] [place] [address] [place] Creatinine [Mass/Vol] 1.35 mg/dL High 0.73-1.22 [facility] Comment on above: Order Comment: Speci men Type: BLOOD SPECIMENOrdering Facility: [facility] Address: [address] [place], [place] [address] Performed By: #### 2 4323-8 ####[facility] LABIA [id number] [place] [address] [place] ESTIMATED GLOMERULAR FILTRATION RATE 54 mL/min/1.73m??? Low >=60 [facility] Comment on above: Order Comment: Speci men Type: BLOOD SPECIMENOrdering Facility: [facility] Address: [address] [place], [place] [address] Result Comment: Fabiano mated Glomerular Filtration Rate (eGFR) is calculated using the 2020 CKD-EPI creatinine equation. This equation utilizes serum creatinine, sex, and age as parameters. The creatinine assay has traceable calibration to isotope dilution-mass spectrometry. Refer to KDIGO guidelines for clinical interpretation. In patients with unstable renal function, e.g. those with acute kidney injury, the eGFR may not accurately reflect actual GFR. Performed By: #### 2 4323-8 ####[facility] LABCLIA [id number] [place] [address] [place] Glucose [Mass/Vol] 115 mg/dL High 74-99 [facility] Comment on above: Order Comment: Speci men Type: BLOOD SPECIMENOrdering Facility: [facility] Address: [address] [place], [place] [address] Result Comment: The [place] Diabetes Association (ADA) provides guidance for cutoff values for fasting glucose and random glucose. The ADA defines fasting as no caloric intake for at least 8 hours. Fasting plasma glucose results between 100 to 125 mg/dL indicate increased risk for diabetes (prediabetes).Fasting plasma glucose results greater than or equal to 126 mg/dL meet the criteria for diagnosis of diabetes. In the absence of unequivocal hyperglycemia, results should be confirmed by repeat testing. In a patient with classic symptoms of hyperglycemia or hyperglycemic crisis, random plasma glucose results greater than or equal to 200 mg/dL meet the criteria for diagnosis of diabetes.Reference: Standards of Medical Care in Diabetes 2016, [place] [employer]. Diabetes Care. 2016.39(Suppl 1). Performed By: #### 2 4323-8 ####[facility] LABCLIA [id number] [place] [address] [place] Potassium [Moles/Vol] 4.9 mmol/L Normal 3.7-5.1 [facility] Comment on above: Order Comment: Speci men Type: BLOOD SPECIMENOrdering Facility: [facility] Address: [address] [place] [address] Performed By: #### 2 4323-8 ####[facility] LABCLIA [id number] [address] [address] [place] Protein [Mass/Vol] 7.1 g/dL Normal 6.3-8.0 [facility] Comment on above: Order Comment: Speci men Type: BLOOD SPECIMENOrdering Facility: [facility] Address: [address] [place] [address] Performed By: #### 2 4323-8 ####[facility] LABCLIA [id number] [place] [address] [place] Sodium [Moles/Vol] 137 mmol/L Normal 136-144 [facility] Comment on above: Order Comment: Speci men Type: BLOOD SPECIMENOrdering Facility: [facility] Address: [address] [place] [address] Performed By: #### 2 4323-8 ####[facility] LABCLIA [id number] [place] [address] [place] Urea nitrogen [Mass/Vol] 66 mg/dL High 9-24 [facility] Comment on above: Order Comment: Speci men Type: BLOOD SPECIMENOrdering Facility: [facility] Address: [address] [place] [address] Performed By: #### 2 4323-8 ####[facility] LABIA [id number] [place] [address] [place] NUTRITIONon 08-23-2021 NUTRITION Normal [facility] PT panel Coag (PPP)on 2021 INR Coag (PPP) [Relative time] 1.6 {INR} High 0.9-1.3 [facility] Comment on above: Order Comment: mCi men Type: BLOOD SPECIMENOrdering Facility: [facility] Address: [address] [place] [address] Result Comment: Samantha min K Antagonist (VKA) Therapeutic Range: INR 2 to 3 (Target INR of 2.5)Note: For patients treated with VKA drugs, such as warfarin, the [place] [employer] 2012 Guideline recommends a therapeutic INR range of 2 to 3 (target INR of 2.5). This recommendation includes high-risk patients with antiphospholipid syndrome with previous arterial or venous thromboembolism, current-generation mechanical or bioprosthetic aortic heart valve replacement.Note: Patients with mechanical aortic valve replacement and additional risk factors for thromboembolic events (atrial fibrillation, previous thromboembolism, LV dysfunction, hypercoagulable conditions) or an older generation mechanical AVR (i.e., ball in-Cage) or any mechanical MVR should have a INR therapeutic range of 2.5 to 3.5 (target INR of 3).Greard GH, et al. Chest 2012, 141:7S-47SNishimtayler RA, et al. [facility] 2017, 70: 252-289 Performed By: #### 3 4528-0 ####[facility] LABCLIA [id number] [place] [address] [place] PT Coag (PPP) [Time] 16.1 s High 9.7-13.0 [facility] Comment on above: Order Comment: Speci men Type: BLOOD SPECIMENOrdering Facility: [facility] Address: [address] [place] [address] Performed By: #### 3 4528-0 ####[facility] LABIA [id number] [place] [address] [place] THERAPY NTon 08-23-2021 THERAPY NT Normal [facility] ALLIED HEALTHon 08-22-2021 ALLIED HEALTH Normal [facility] CASE MANAGEMon 08-22-2021 CASE MANAGEM Normal [facility] CBC panel Auto (Bld)on 08-22 Erythrocyte distribution width (RBC) [Ratio] 22.6 % High 11.5-15.0 [facility] Comment on above: Order Comment: Speci men Type: BLOOD SPECIMENOrdering Facility: [facility] Address: [address] [place] [place] [address] Performed By: #### 5 8410-2 ####[facility] LABIA [id number] [address] [place] Hematocrit (Bld) [Volume fraction] 41.3 % Normal 39.0-51.0 [facility] Comment on above: Order Comment: Speci men Type: BLOOD SPECIMENOrdering Facility: [facility] Address: [address] [place], [place] [address] Performed By: #### 5 8410-2 ####[facility] [id number] [address] [place] Hemoglobin (Bld) [Mass/Vol] 12.5 g/dL Low 13.0-17.0 [facility] Comment on above: Order Comment: Speci men Type: BLOOD SPECIMENOrdering Facility: [facility] Address: [address] [place], [place] [address] Performed By: #### 5 8410-2 ####[facility] [id number] [place] [address] [place] MCH (RBC) [Entitic mass] 25.1 pg Low 26.0-34.0 [facility] Comment on above: Order Comment: Speci men Type: BLOOD SPECIMENOrdering Facility: [facility] Address: [address] [place], [place] [address] Performed By: #### 5 8410-2 ####[facility] [id number] [address] [place] MCHC (RBC) [Mass/Vol] 30.3 g/dL Low 30.5-36.0 [facility] Comment on above: Order Comment: Speci men Type: BLOOD SPECIMENOrdering Facility: [facility] Address: [address] [place], [place] [address] Performed By: #### 5 8410-2 ####[facility] [id number] [place] [address] [place] MCV (RBC) [Entitic vol] 82.9 fL Normal 80.0-100.0 [facility] Comment on above: Order Comment: Speci men Type: BLOOD SPECIMENOrdering Facility: [facility] Address: [address] [place], [place] [address] Performed By: #### 5 8410-2 ####[facility] LABCLIA [id number] [place] [address] [place] Nucleated RBC (Bld) [#/Vol] 10*3/uL Normal <0.01 [facility] Comment on above: Order Comment: Speci men Type: BLOOD SPECIMENOrdering Facility: [facility] Address: [address] [place], [place] [address] Performed By: #### 5 8410-2 ####[facility] LABIA [id number] [place] [address] [place] Platelet mean volume (Bld) [Entitic vol] 10.2 fL Normal 9.0-12.7 [facility] Comment on above: Order Comment: Speci men Type: BLOOD SPECIMENOrdering Facility: [facility] Address: [address] [place] [address] Performed By: #### 5 8410-2 ####[facility] LABIA [id number] [place] [address] [place] Platelets (Bld) [#/Vol] 303 10*3/uL Normal 150-400 [facility] Comment on above: Order Comment: Speci men Type: BLOOD SPECIMENOrdering Facility: [facility] Address: [address] [place], [place] [address] Performed By: #### 5 8410-2 ####[facility] LABIA [id number] [place] [address] [place] RBC (Bld) [#/Vol] 4.98 10*6/uL Normal 4.20-6.00 [facility] Comment on above: Order Comment: Speci men Type: BLOOD SPECIMENOrdering Facility: [facility] Address: [address] [place], [place] [address] Performed By: #### 5 8410-2 ####[facility] LABIA [id number] [id number] [address] [place] WBC (Bld) [#/Vol] 10.18 10*3/uL Normal 3.70-11.00 [facility] Comment on above: Order Comment: Speci men Type: BLOOD SPECIMENOrdering Facility: [facility] Address: [address] [place] [address] Performed By: #### 5 8410-2 ####[facility] LABCLIA [id number] [address] OF [facility] Comprehensive metabolic 2000 panelon 08-22-2021 Albumin [Mass/Vol] 3.7 g/dL Low 3.9-4.9 [facility] Comment on above: Order Comment: Speci men Type: BLOOD SPECIMENOrdering Facility: [facility] Address: [address] [place] [address] Performed By: #### 2 4323-8 ####[facility] LABCLIA [id number] [address] [place] ALP [Catalytic activity/Vol] 196 U/L High 38-113 [facility] Comment on above: Order Comment: Speci men Type: BLOOD SPECIMENOrdering Facility: [facility] Address: [address] [place] [address] Performed By: #### 2 4323-8 ####[facility] LABCLIA [id number] [address] [place] ALT [Catalytic activity/Vol] 65 U/L High 10-54 [facility] Comment on above: Order Comment: Speci men Type: BLOOD SPECIMENOrdering Facility: [facility] Address: [address] [place], [place] [address] Performed By: #### 2 4323-8 ####[facility] LABCLIA [id number] [place] [address] [place] Anion gap [Moles/Vol] 15 mmol/L Normal 9-18 [facility] Comment on above: Order Comment: Speci men Type: BLOOD SPECIMENOrdering Facility: [facility] Address: [address] [place] [address] Performed By: #### 2 4323-8 ####[facility] LABCLIA [id number] [place] [address] [place] AST [Catalytic activity/Vol] 44 U/L High 14-40 [facility] Comment on above: Order Comment: Speci men Type: BLOOD SPECIMENOrdering Facility: [facility] Address: [address] [place], [place] [address] Performed By: #### 2 4323-8 ####[facility] LABCLIA [id number] [place] [address] [place] Bilirubin [Mass/Vol] 1.4 mg/dL High 0.2-1.3 [facility] Comment on above: Order Comment: Speci men Type: BLOOD SPECIMENOrdering Facility: [facility] Address: [address] [place] [address] Performed By: #### 2 4323-8 ####[facility] LABCLIA [id number] [place] [address] [place] Calcium [Mass/Vol] 9.3 mg/dL Normal 8.5-10.2 [facility] Comment on above: Order Comment: Speci men Type: BLOOD SPECIMENOrdering Facility: [facility] Address: [address] [place] [address] Performed By: #### 2 4323-8 ####[facility] LABCLIA [id number] [place] [address] [place] Chloride [Moles/Vol] 99 mmol/L Normal 97-105 [facility] Comment on above: Order Comment: Speci men Type: BLOOD SPECIMENOrdering Facility: [facility] Address: [address] [place] [address] Performed By: #### 2 4323-8 ####[facility] LABCLIA [id number] [place] [address] [place] CO2 [Moles/Vol] 25 mmol/L Normal 22-30 [facility] Comment on above: Order Comment: Speci men Type: BLOOD SPECIMENOrdering Facility: [facility] Address: [address] [place] [address] Performed By: #### 2 4323-8 ####[facility] LABCLIA [id number] [place] [address] [place] Creatinine [Mass/Vol] 1.52 mg/dL High 0.73-1.22 [facility] Comment on above: Order Comment: Speci men Type: BLOOD SPECIMENOrdering Facility: [facility] Address: [address] [place] [address] Performed By: #### 2 4323-8 ####[facility] LABIA [id number] [address] [place] ESTIMATED GLOMERULAR FILTRATION RATE 47 mL/min/1.73m??? Low >=60 [facility] Comment on above: Order Comment: Speci men Type: BLOOD SPECIMENOrdering Facility: [facility] Address: [address] [place] [address] Result Comment: Fabiano mated Glomerular Filtration Rate (eGFR) is calculated using the 2020 CKD-EPI creatinine equation. This equation utilizes serum creatinine, sex, and age as parameters. The creatinine assay has traceable calibration to isotope dilution-mass spectrometry. Refer to KDIGO guidelines for clinical interpretation. In patients with unstable renal function, e.g. those with acute kidney injury, the eGFR may not accurately reflect actual GFR. Performed By: #### 2 4323-8 ####[facility] LABCLIA [id number] [place] [address] [place] Glucose [Mass/Vol] 98 mg/dL Normal 74-99 [facility] Comment on above: Order Comment: Speci men Type: BLOOD SPECIMENOrdering Facility: [facility] Address: [address] [address] Result Comment: The [place] Diabetes Association (ADA) provides guidance for cutoff values for fasting glucose and random glucose. The ADA defines fasting as no caloric intake for at least 8 hours. Fasting plasma glucose results between 100 to 125 mg/dL indicate increased risk for diabetes (prediabetes).Fasting plasma glucose results greater than or equal to 126 mg/dL meet the criteria for diagnosis of diabetes. In the absence of unequivocal hyperglycemia, results should be confirmed by repeat testing. In a patient with classic symptoms of hyperglycemia or hyperglycemic crisis, random plasma glucose results greater than or equal to 200 mg/dL meet the criteria for diagnosis of diabetes.Reference: Standards of Medical Care in Diabetes 2016, [place] [employer]. Diabetes Care. 2016.39(Suppl 1). Performed By: #### 2 4323-8 ####[facility] LABIA [id number] [place] [address] [place] Potassium [Moles/Vol] 4.5 mmol/L Normal 3.7-5.1 [facility] Comment on above: Order Comment: Speci men Type: BLOOD SPECIMENOrdering Facility: [facility] Address: [address] [address] Performed By: #### 2 4323-8 ####[facility] LABIA [id number] [place] [address] [place] Protein [Mass/Vol] 7.2 g/dL Normal 6.3-8.0 [facility] Comment on above: Order Comment: Speci men Type: BLOOD SPECIMENOrdering Facility: [facility] Address: [address] [address] Performed By: #### 2 4323-8 ####[facility] LABIA [id number] [place] [address] [place] Sodium [Moles/Vol] 139 mmol/L Normal 136-144 [facility] Comment on above: Order Comment: Speci men Type: BLOOD SPECIMENOrdering Facility: [facility] Address: [address] [place] [address] Performed By: #### 2 4323-8 ####[facility] LABIA [id number] [place] [address] [place] Urea nitrogen [Mass/Vol] 74 mg/dL High 9-24 [facility] Comment on above: Order Comment: Speci men Type: BLOOD SPECIMENOrdering Facility: [facility] Address: [address] [place] [address] Performed By: #### 2 4323-8 ####[facility] [id number] [address] [place] PT panel Coag (PPP)on 2021 INR Coag (PPP) [Relative time] 1.8 {INR} High 0.9-1.3 [facility] Comment on above: Order Comment: Speci men Type: BLOOD SPECIMENOrdering Facility: [facility] Address: [address] [place] [address] Result Comment: Samantha min K Antagonist (VKA) Therapeutic Range: INR 2 to 3 (Target INR of 2.5)Note: For patients treated with VKA drugs, such as warfarin, the [place] [employer] 2012 Guideline recommends a therapeutic INR range of 2 to 3 (target INR of 2.5). This recommendation includes high-risk patients with antiphospholipid syndrome with previous arterial or venous thromboembolism, current-generation mechanical or bioprosthetic aortic heart valve replacement.Note: Patients with mechanical aortic valve replacement and additional risk factors for thromboembolic events (atrial fibrillation, previous thromboembolism, LV dysfunction, hypercoagulable conditions) or an older generation mechanical AVR (i.e., ball in-Cage) or any mechanical MVR should have a INR therapeutic range of 2.5 to 3.5 (target INR of 3).Gerard GH, et al. Chest 2012, 141:7S-47SBelén RA, et al. [facility] 2017, 70: 252-289 Performed By: #### 3 4528-0 ####[facility] LABIA [id number] [place] [address] [place] PT Coag (PPP) [Time] 18.4 s High 9.7-13.0 [facility] Comment on above: Order Comment: Speci men Type: BLOOD SPECIMENOrdering Facility: [facility] Address: [address] [place] [address] Performed By: #### 3 4528-0 ####[facility] LABIA [id number] [address] [place] CASE MANAGEMon 08-21-2021 CASE MANAGEM Normal [facility] CASE MANAGEM Normal [facility] CBC panel Auto (Bld)on 08-21 Erythrocyte distribution width (RBC) [Ratio] 22.7 % High 11.5-15.0 [facility] Comment on above: Order Comment: Speci men Type: BLOOD SPECIMENOrdering Facility: [facility] Address: [address] [place] [address] Performed By: #### 5 8410-2 ####[facility] LABIA [id number] [address] [place] Hematocrit (Bld) [Volume fraction] 39.5 % Normal 39.0-51.0 [facility] Comment on above: Order Comment: Speci men Type: BLOOD SPECIMENOrdering Facility: [facility] Address: [address] [place], [place] [address] Performed By: #### 5 8410-2 ####[facility] LABIA [id number] [place] [address] [place] Hemoglobin (Bld) [Mass/Vol] 12.0 g/dL Low 13.0-17.0 [facility] Comment on above: Order Comment: Speci men Type: BLOOD SPECIMENOrdering Facility: [facility] Address: [address] [place] [address] Performed By: #### 5 8410-2 ####[facility] LABCLIA [id number] [address] STATES OF [facility] MCH (RBC) [Entitic mass] 25.1 pg Low 26.0-34.0 [facility] Comment on above: Order Comment: Speci men Type: BLOOD SPECIMENOrdering Facility: [facility] Address: [address] [place] [address] Performed By: #### 5 8410-2 ####[facility] LABCLIA [id number] [address] MCHC (RBC) [Mass/Vol] 30.4 g/dL Low 30.5-36.0 [facility] Comment on above: Order Comment: Speci men Type: BLOOD SPECIMENOrdering Facility: [facility] Address: [address] [place] [address] Performed By: #### 5 8410-2 ####[facility] LABIA [id number] [address] [place] MCV (RBC) [Entitic vol] 82.5 fL Normal 80.0-100.0 [facility] Comment on above: Order Comment: Speci men Type: BLOOD SPECIMENOrdering Facility: [facility] Address: [address] [place] [address] Performed By: #### 5 8410-2 ####[facility] LABIA [id number] [address] [place] Nucleated RBC (Bld) [#/Vol] 10*3/uL Normal <0.01 [facility] Comment on above: Order Comment: Speci men Type: BLOOD SPECIMENOrdering Facility: [facility] Address: [address] [place], [place] [address] Performed By: #### 5 8410-2 ####[facility] LABCLIA [id number] [address] [place] Platelet mean volume (Bld) [Entitic vol] 10.1 fL Normal 9.0-12.7 [facility] Comment on above: Order Comment: Speci men Type: BLOOD SPECIMENOrdering Facility: [facility] Address: [address] [place], [place] [address] Performed By: #### 5 8410-2 ####[facility] LABCLIA [id number] [place] [address] [place] Platelets (Bld) [#/Vol] 330 10*3/uL Normal 150-400 [facility] Comment on above: Order Comment: Speci men Type: BLOOD SPECIMENOrdering Facility: [facility] Address: [address] [place], [place] [address] Performed By: #### 5 8410-2 ####[facility] LABIA [id number] [place] [address] [place] RBC (Bld) [#/Vol] 4.79 10*6/uL Normal 4.20-6.00 [facility] Comment on above: Order Comment: Speci men Type: BLOOD SPECIMENOrdering Facility: [facility] Address: [address] [place], [place] [address] Performed By: #### 5 8410-2 ####[facility] LABIA [id number] [place] [address] [place] WBC (Bld) [#/Vol] 13.05 10*3/uL High 3.70-11.00 [facility] Comment on above: Order Comment: Speci men Type: BLOOD SPECIMENOrdering Facility: [facility] Address: [address] [place], [place] [address] Performed By: #### 5 8410-2 ####[facility] LABIA [id number] [place] [address] [place] CONSULT PROGon 08-21-2021 CONSULT PROG Normal [facility] Comprehensive metabolic 2000 panelon 08-21-2021 Albumin [Mass/Vol] 3.7 g/dL Low 3.9-4.9 [facility] Comment on above: Order Comment: Speci men Type: BLOOD SPECIMENOrdering Facility: [facility] Address: [address] [place], [place] [address] Performed By: #### 2 4323-8 ####[facility] LABCLIA [id number] [place] [address] [place] ALP [Catalytic activity/Vol] 191 U/L High 38-113 [facility] Comment on above: Order Comment: Speci men Type: BLOOD SPECIMENOrdering Facility: [facility] Address: [address] [place], [place] [address] Performed By: #### 2 4323-8 ####[facility] LABCLIA [id number] [place] [address] [place] ALT [Catalytic activity/Vol] 69 U/L High 10-54 [facility] Comment on above: Order Comment: Speci men Type: BLOOD SPECIMENOrdering Facility: [facility] Address: [address] [place], [place] [address] Performed By: #### 2 4323-8 ####[facility] LABCLIA [id number] [place] [address] [place] Anion gap [Moles/Vol] 15 mmol/L Normal 9-18 [facility] Comment on above: Order Comment: Speci men Type: BLOOD SPECIMENOrdering Facility: [facility] Address: [address] [place], [place] [address] Performed By: #### 2 4323-8 ####[facility] LABCLIA [id number] [place] [address] [place] AST [Catalytic activity/Vol] 49 U/L High 14-40 [facility] Comment on above: Order Comment: Speci men Type: BLOOD SPECIMENOrdering Facility: [facility] Address: [address] [place], [place] [address] Performed By: #### 2 4323-8 ####[facility] LABCLIA [id number] [place] [address] [place] Bilirubin [Mass/Vol] 1.4 mg/dL High 0.2-1.3 [facility] Comment on above: Order Comment: Speci men Type: BLOOD SPECIMENOrdering Facility: [facility] Address: [address] [place], [place] [address] Performed By: #### 2 4323-8 ####[facility] LABCLIA [id number] [place] [address] [place] Calcium [Mass/Vol] 9.5 mg/dL Normal 8.5-10.2 [facility] Comment on above: Order Comment: Speci men Type: BLOOD SPECIMENOrdering Facility: [facility] Address: [address] [place], [place] [address] Performed By: #### 2 4323-8 ####[facility] LABCLIA [id number] [place] [address] [place] Chloride [Moles/Vol] 99 mmol/L Normal 97-105 [facility] Comment on above: Order Comment: Speci men Type: BLOOD SPECIMENOrdering Facility: [facility] Address: [address] [place], [place] [address] Performed By: #### 2 4323-8 ####[facility] LABCLIA [id number] [place] [address] [place] CO2 [Moles/Vol] 23 mmol/L Normal 22-30 [facility] Comment on above: Order Comment: Speci men Type: BLOOD SPECIMENOrdering Facility: [facility] Address: [address] [place] [address] Performed By: #### 2 4323-8 ####[facility] LABCLIA [id number] [place] [address] [place] Creatinine [Mass/Vol] 1.28 mg/dL High 0.73-1.22 [facility] Comment on above: Order Comment: An cadena Type: BLOOD SPECIMENOrdering Facility: [facility] Address: [address] [phone] Performed By: #### 2 4323-8 ####[facility] LABCLIA [id number] [place] [address] [place] ESTIMATED GLOMERULAR FILTRATION RATE 57 mL/min/1.73m??? Low >=60 [facility] Comment on above: Order Comment: An cadena Type: BLOOD SPECIMENOrdering Facility: [facility] Address: [address] Result Comment: Fabiano mated Glomerular Filtration Rate (eGFR) is calculated using the 2020 CKD-EPI creatinine equation. This equation utilizes serum creatinine, sex, and age as parameters. The creatinine assay has traceable calibration to isotope dilution-mass spectrometry. Refer to KDIGO guidelines for clinical interpretation. In patients with unstable renal function, e.g. those with acute kidney injury, the eGFR may not accurately reflect actual GFR. Performed By: #### 2 4323-8 ####[facility] LABCLIA [id number] [place] [address] [place] Glucose [Mass/Vol] 88 mg/dL Normal 74-99 [facility] Comment on above: Order Comment: An cadena Type: BLOOD SPECIMENOrdering Facility: [facility] Address: [address] [phone] Result Comment: The [place] Diabetes Association (ADA) provides guidance for cutoff values for fasting glucose and random glucose. The ADA defines fasting as no caloric intake for at least 8 hours. Fasting plasma glucose results between 100 to 125 mg/dL indicate increased risk for diabetes (prediabetes).Fasting plasma glucose results greater than or equal to 126 mg/dL meet the criteria for diagnosis of diabetes. In the absence of unequivocal hyperglycemia, results should be confirmed by repeat testing. In a patient with classic symptoms of hyperglycemia or hyperglycemic crisis, random plasma glucose results greater than or equal to 200 mg/dL meet the criteria for diagnosis of diabetes.Reference: Standards of Medical Care in Diabetes 2016, [place] [employer]. Diabetes Care. 2016.39(Suppl 1). Performed By: #### 2 4323-8 ####[facility] LABCLIA [id number] [place] [address] [place] Potassium [Moles/Vol] 4.2 mmol/L Normal 3.7-5.1 [facility] Comment on above: Order Comment: Speci men Type: BLOOD SPECIMENOrdering Facility: [facility] Address: [address] [place], [place] [address] Performed By: #### 2 4323-8 ####[facility] LABIA [id number] [place] [address] [place] Protein [Mass/Vol] 7.1 g/dL Normal 6.3-8.0 [facility] Comment on above: Order Comment: Speci men Type: BLOOD SPECIMENOrdering Facility: [facility] Address: [address] [place], [place] [address] Performed By: #### 2 4323-8 ####[facility] LABIA [id number] [place] [address] [place] Sodium [Moles/Vol] 137 mmol/L Normal 136-144 [facility] Comment on above: Order Comment: Speci men Type: BLOOD SPECIMENOrdering Facility: [facility] Address: [address] [place], [place] [address] Performed By: #### 2 4323-8 ####[facility] LABCLIA [id number] [place] [address] [place] Urea nitrogen [Mass/Vol] 62 mg/dL High 9-24 [facility] Comment on above: Order Comment: Speci men Type: BLOOD SPECIMENOrdering Facility: [facility] Address: [address] [place] [address] Performed By: #### 2 4323-8 ####[facility] LABCLIA [id number] [address] [place] ECHOLon 08-21-2021 ECHOL Normal [facility] PT panel Coag (PPP)on 2021 INR Coag (PPP) [Relative time] 1.8 {INR} High 0.9-1.3 [facility] Comment on above: Order Comment: Speci men Type: BLOOD SPECIMENOrdering Facility: [facility] Address: [address] [place], [place] [address] Result Comment: Samantha min K Antagonist (VKA) Therapeutic Range: INR 2 to 3 (Target INR of 2.5)Note: For patients treated with VKA drugs, such as warfarin, the [place] [employer] 2012 Guideline recommends a therapeutic INR range of 2 to 3 (target INR of 2.5). This recommendation includes high-risk patients with antiphospholipid syndrome with previous arterial or venous thromboembolism, current-generation mechanical or bioprosthetic aortic heart valve replacement.Note: Patients with mechanical aortic valve replacement and additional risk factors for thromboembolic events (atrial fibrillation, previous thromboembolism, LV dysfunction, hypercoagulable conditions) or an older generation mechanical AVR (i.e., ball in-Cage) or any mechanical MVR should have a INR therapeutic range of 2.5 to 3.5 (target INR of 3).Gerard GH, et al. Chest 2012, 141:7S-47SNishdorene RA, et al. [facility] 2017, 70: 252-289 Performed By: #### 3 4528-0 ####[facility] LABCLIA [id number] [address] [place] PT Coag (PPP) [Time] 18.7 s High 9.7-13.0 [facility] Comment on above: Order Comment: Speci men Type: BLOOD SPECIMENOrdering Facility: [facility] Address: [address] [place] [address] Performed By: #### 3 4528-0 ####[facility] LABCLIA [id number] [address] [place] THERAPY NTon 08-21-2021 THERAPY NT Normal [facility] ALLIED HEALTHon 08-20-2021 ALLIED HEALTH Normal [facility] CASE MANAGEMon 08-20-2021 CASE MANAGEM Normal [facility] CBC panel Auto (Bld)on 08-20 Erythrocyte distribution width (RBC) [Ratio] 22.8 % High 11.5-15.0 [facility] Comment on above: Order Comment: Speci men Type: BLOOD SPECIMENOrdering Facility: [facility] Address: [address] [place] [address] Performed By: #### 5 8410-2 ####[facility] LABCLIA [id number] [place] [address] [place] Hematocrit (Bld) [Volume fraction] 38.9 % Low 39.0-51.0 [facility] Comment on above: Order Comment: Speci men Type: BLOOD SPECIMENOrdering Facility: [facility] Address: [address] [place] [address] Performed By: #### 5 8410-2 ####[facility] LABCLIA [id number] [place] [address] [place] Hemoglobin (Bld) [Mass/Vol] 12.0 g/dL Low 13.0-17.0 [facility] Comment on above: Order Comment: Speci men Type: BLOOD SPECIMENOrdering Facility: [facility] Address: [address] [place], [place] [address] Performed By: #### 5 8410-2 ####[facility] LABCLIA [id number] [place] [address] [place] MCH (RBC) [Entitic mass] 25.5 pg Low 26.0-34.0 [facility] Comment on above: Order Comment: Speci men Type: BLOOD SPECIMENOrdering Facility: [facility] Address: [address] [place] [address] Performed By: #### 5 8410-2 ####[facility] LABCLIA [id number] [place] [address] [place] MCHC (RBC) [Mass/Vol] 30.8 g/dL Normal 30.5-36.0 [facility] Comment on above: Order Comment: Speci men Type: BLOOD SPECIMENOrdering Facility: [facility] Address: [address] [place] [address] Performed By: #### 5 8410-2 ####[facility] LABIA [id number] [place] [address] [place] MCV (RBC) [Entitic vol] 82.8 fL Normal 80.0-100.0 [facility] Comment on above: Order Comment: Speci men Type: BLOOD SPECIMENOrdering Facility: [facility] Address: [address] [place] [address] Performed By: #### 5 8410-2 ####[facility] LABIA [id number] [place] [address] [place] Nucleated RBC (Bld) [#/Vol] 10*3/uL Normal <0.01 [facility] Comment on above: Order Comment: Speci men Type: BLOOD SPECIMENOrdering Facility: [facility] Address: [address] [place], [place] [address] Performed By: #### 5 8410-2 ####[facility] LABIA [id number] [place] [address] [place] Platelet mean volume (Bld) [Entitic vol] 10.5 fL Normal 9.0-12.7 [facility] Comment on above: Order Comment: Speci men Type: BLOOD SPECIMENOrdering Facility: [facility] Address: [address] [place], [place] [address] Performed By: #### 5 8410-2 ####[facility] LABIA [id number] [place] [address] [place] Platelets (Bld) [#/Vol] 358 10*3/uL Normal 150-400 [facility] Comment on above: Order Comment: Speci men Type: BLOOD SPECIMENOrdering Facility: [facility] Address: [address] [place], [place] [address] Performed By: #### 5 8410-2 ####[facility] LABCLIA [id number] [place] [address] [place] RBC (Bld) [#/Vol] 4.70 10*6/uL Normal 4.20-6.00 [facility] Comment on above: Order Comment: Speci men Type: BLOOD SPECIMENOrdering Facility: [facility] Address: [address] [place] [address] Performed By: #### 5 8410-2 ####[facility] LABCLIA [id number] [place] [address] [place] WBC (Bld) [#/Vol] 12.35 10*3/uL High 3.70-11.00 [facility] Comment on above: Order Comment: Speci men Type: BLOOD SPECIMENOrdering Facility: [facility] Address: [address] [place], [place] [address] Performed By: #### 5 8410-2 ####[facility] LABCLIA [id number] [place] [address] [place] CONSULT PROGon 08-20-2021 CONSULT PROG Normal [facility] NURSING PROGon 08-20-2021 NURSING PROG Normal [facility] NUTRITIONon 08-20-2021 NUTRITION Normal [facility] PT panel Coag (PPP)on 2021 INR Coag (PPP) [Relative time] 2.0 {INR} High 0.9-1.3 [facility] Comment on above: Order Comment: Speci men Type: BLOOD SPECIMENOrdering Facility: [facility] Address: [address] [place], [place] [address] Result Comment: Samantha min K Antagonist (VKA) Therapeutic Range: INR 2 to 3 (Target INR of 2.5)Note: For patients treated with VKA drugs, such as warfarin, the [place] [employer] 2012 Guideline recommends a therapeutic INR range of 2 to 3 (target INR of 2.5). This recommendation includes high-risk patients with antiphospholipid syndrome with previous arterial or venous thromboembolism, current-generation mechanical or bioprosthetic aortic heart valve replacement.Note: Patients with mechanical aortic valve replacement and additional risk factors for thromboembolic events (atrial fibrillation, previous thromboembolism, LV dysfunction, hypercoagulable conditions) or an older generation mechanical AVR (i.e., ball in-Cage) or any mechanical MVR should have a INR therapeutic range of 2.5 to 3.5 (target INR of 3).Gerard GH, et al. Chest 2012, 141:7S-47SNishimura RA, et al. [facility] 2017, 70: 252-289 Performed By: #### 3 4528-0 ####[facility] LABCLIA [id number] [place] [address] [place] PT Coag (PPP) [Time] 20.4 s High 9.7-13.0 [facility] Comment on above: Order Comment: Speci men Type: BLOOD SPECIMENOrdering Facility: [facility] Address: [address] [place] [address] Performed By: #### 3 4528-0 ####[facility] LABCLIA [id number] [place] [address] [place] THERAPY NTon 08-20-2021 THERAPY NT Normal [facility] XR CHEST 2V FRONTAL/LATon XR CHEST 2V FRONTAL/LAT Normal [facility] CBC panel Auto (Bld)on 08-18 Erythrocyte distribution width (RBC) [Ratio] 22.5 % High 11.5-15.0 [facility] Comment on above: Order Comment: Speci men Type: BLOOD SPECIMENOrdering Facility: [facility] Address: [address] [place] [address] Performed By: #### 5 8410-2 ####[facility] LABCLIA [id number] [place] [address] [place] Hematocrit (Bld) [Volume fraction] 38.1 % Low 39.0-51.0 [facility] Comment on above: Order Comment: Speci men Type: BLOOD SPECIMENOrdering Facility: [facility] Address: [address] [place] [address] Performed By: #### 5 8410-2 ####[facility] LABIA [id number] [place] [address] [place] Hemoglobin (Bld) [Mass/Vol] 11.6 g/dL Low 13.0-17.0 [facility] Comment on above: Order Comment: Speci men Type: BLOOD SPECIMENOrdering Facility: [facility] Address: [address] [place] [address] Performed By: #### 5 8410-2 ####[facility] LABIA [id number] [address] [place] MCH (RBC) [Entitic mass] 25.1 pg Low 26.0-34.0 [facility] Comment on above: Order Comment: Speci men Type: BLOOD SPECIMENOrdering Facility: [facility] Address: [address] [place] [address] Performed By: #### 5 8410-2 ####[facility] LABIA [id number] [place] [address] [place] MCHC (RBC) [Mass/Vol] 30.4 g/dL Low 30.5-36.0 [facility] Comment on above: Order Comment: Speci men Type: BLOOD SPECIMENOrdering Facility: [facility] Address: [address] [place] [address] Performed By: #### 5 8410-2 ####[facility] LABIA [id number] [place] [address] [place] MCV (RBC) [Entitic vol] 82.5 fL Normal 80.0-100.0 [facility] Comment on above: Order Comment: Speci men Type: BLOOD SPECIMENOrdering Facility: [facility] Address: [address] [place] [address] Performed By: #### 5 8410-2 ####[facility] LABCLIA [id number] [place] [address] [place] Nucleated RBC (Bld) [#/Vol] 10*3/uL Normal <0.01 [facility] Comment on above: Order Comment: Speci men Type: BLOOD SPECIMENOrdering Facility: [facility] Address: [address] [place], [place] [address] Performed By: #### 5 8410-2 ####[facility] LABCLIA [id number] [place] [address] [place] Platelet mean volume (Bld) [Entitic vol] 9.9 fL Normal 9.0-12.7 [facility] Comment on above: Order Comment: Speci men Type: BLOOD SPECIMENOrdering Facility: [facility] Address: [address] [place], [place] [address] Performed By: #### 5 8410-2 ####[facility] LABCLIA [id number] [place] [address] [place] Platelets (Bld) [#/Vol] 312 10*3/uL Normal 150-400 [facility] Comment on above: Order Comment: Speci men Type: BLOOD SPECIMENOrdering Facility: [facility] Address: [address] [place] [phone] Performed By: #### 5 8410-2 ####[facility] LABCLIA [id number] [place] [address] [place] RBC (Bld) [#/Vol] 4.62 10*6/uL Normal 4.20-6.00 [facility] Comment on above: Order Comment: Speci men Type: BLOOD SPECIMENOrdering Facility: [facility] Address: [address] [place], [place] [address] Performed By: #### 5 8410-2 ####[facility] LABCLIA [id number] [place] [address] [place] WBC (Bld) [#/Vol] 6.54 10*3/uL Normal 3.70-11.00 [facility] Comment on above: Order Comment: Speci men Type: BLOOD SPECIMENOrdering Facility: [facility] Address: [address] [place], [place] [address] Performed By: #### 5 8410-2 ####[facility] LABCLIA [id number] [place] [address] [place] [facility] Comprehensive metabolic 2000 panelon 08-18-2021 Albumin [Mass/Vol] 3.5 g/dL Low 3.9-4.9 [facility] Comment on above: Order Comment: Speci men Type: BLOOD SPECIMENOrdering Facility: [facility] Address: [address] [place], [place] [address] Performed By: #### 2 4323-8 ####[facility] LABCLIA [id number] [place] [address] [place] ALP [Catalytic activity/Vol] 157 U/L High 38-113 [facility] Comment on above: Order Comment: Speci men Type: BLOOD SPECIMENOrdering Facility: [facility] Address: [address] [place] [address] Performed By: #### 2 4323-8 ####[facility] LABCLIA [id number] [place] [id number] [place] ALT [Catalytic activity/Vol] 66 U/L High 10-54 [facility] Comment on above: Order Comment: Speci men Type: BLOOD SPECIMENOrdering Facility: [facility] Address: [address] [place] [address] Performed By: #### 2 4323-8 ####[facility] LABCLIA [id number] [place] [address] [place] Anion gap [Moles/Vol] 9 mmol/L Normal 9-18 [facility] Comment on above: Order Comment: Speci men Type: BLOOD SPECIMENOrdering Facility: [facility] Address: [address] [place] [address] Performed By: #### 2 4323-8 ####[facility] LABCLIA [id number] [place] [address] [place] AST [Catalytic activity/Vol] 58 U/L High 14-40 [facility] Comment on above: Order Comment: Speci men Type: BLOOD SPECIMENOrdering Facility: [facility] Address: [address] [place], [place] [address] Performed By: #### 2 4323-8 ####[facility] LABCLIA [id number] [place] [address] [place] Bilirubin [Mass/Vol] 1.4 mg/dL High 0.2-1.3 [facility] Comment on above: Order Comment: Speci men Type: BLOOD SPECIMENOrdering Facility: [facility] Address: [address] [place] [phone] Performed By: #### 2 4323-8 ####[facility] LABCLIA [id number] [place] [address] [place] Calcium [Mass/Vol] 9.1 mg/dL Normal 8.5-10.2 [facility] Comment on above: Order Comment: Speci men Type: BLOOD SPECIMENOrdering Facility: [facility] Address: [address] [place] [address] Performed By: #### 2 4323-8 ####[facility] LABCLIA [id number] [place] [address] [place] Chloride [Moles/Vol] 104 mmol/L Normal 97-105 [facility] Comment on above: Order Comment: Speci men Type: BLOOD SPECIMENOrdering Facility: [facility] Address: [address] [place], [place] [address] Performed By: #### 2 4323-8 ####[facility] LABCLIA [id number] [place] [address] [place] CO2 [Moles/Vol] 23 mmol/L Normal 22-30 [facility] Comment on above: Order Comment: Speci men Type: BLOOD SPECIMENOrdering Facility: [facility] Address: [address] [place] [address] Performed By: #### 2 4323-8 ####[facility] LABCLIA [id number] [place] [address] [place] Creatinine [Mass/Vol] 0.65 mg/dL Low 0.73-1.22 [facility] Comment on above: Order Comment: Speci men Type: BLOOD SPECIMENOrdering Facility: [facility] Address: [address] [place], [place] [address] Performed By: #### 2 4323-8 ####[facility] LABCLIA [id number] [place] [address] [place] ESTIMATED GLOMERULAR FILTRATION RATE 96 mL/min/1.73m??? Normal >=60 [facility] Comment on above: Order Comment: Speci men Type: BLOOD SPECIMENOrdering Facility: [facility] Address: [address] [place], [place] [address] Result Comment: Fabiano mated Glomerular Filtration Rate (eGFR) is calculated using the 2020 CKD-EPI creatinine equation. This equation utilizes serum creatinine, sex, and age as parameters. The creatinine assay has traceable calibration to isotope dilution-mass spectrometry. Refer to KDIGO guidelines for clinical interpretation. In patients with unstable renal function, e.g. those with acute kidney injury, the eGFR may not accurately reflect actual GFR. Performed By: #### 2 4323-8 ####[facility] LABCLIA [id number] [place] [address] [place] Glucose [Mass/Vol] 93 mg/dL Normal 74-99 [facility] Comment on above: Order Comment: Speci men Type: BLOOD SPECIMENOrdering Facility: [facility] Address: [address] [place] [address] Result Comment: The [place] Diabetes [employer] (ADA) provides guidance for cutoff values for fasting glucose and random glucose. The ADA defines fasting as no caloric intake for at least 8 hours. Fasting plasma glucose results between 100 to 125 mg/dL indicate increased risk for diabetes (prediabetes).Fasting plasma glucose results greater than or equal to 126 mg/dL meet the criteria for diagnosis of diabetes. In the absence of unequivocal hyperglycemia, results should be confirmed by repeat testing. In a patient with classic symptoms of hyperglycemia or hyperglycemic crisis, random plasma glucose results greater than or equal to 200 mg/dL meet the criteria for diagnosis of diabetes.Reference: Standards of Medical Care in Diabetes 2016, [place] [employer]. Diabetes Care. 2016.39(Suppl 1). Performed By: #### 2 4323-8 ####[facility] LABCLIA [id number] [place] [address] [place] Potassium [Moles/Vol] 4.8 mmol/L Normal 3.7-5.1 [facility] Comment on above: Order Comment: Speci men Type: BLOOD SPECIMENOrdering Facility: [facility] Address: [address] [place], [place] [address] Performed By: #### 2 4323-8 ####[facility] LABIA [id number] [place] [address] [place] Protein [Mass/Vol] 6.5 g/dL Normal 6.3-8.0 [facility] Comment on above: Order Comment: Speci men Type: BLOOD SPECIMENOrdering Facility: [facility] Address: [address] [place], [place] [address] Performed By: #### 2 4323-8 ####[facility] LABCLIA [id number] [place] [address] [place] Sodium [Moles/Vol] 136 mmol/L Normal 136-144 [facility] Comment on above: Order Comment: Speci men Type: BLOOD SPECIMENOrdering Facility: [facility] Address: [address] [place] [address] Performed By: #### 2 4323-8 ####[facility] LABIA [id number] [place] [address] [place] Urea nitrogen [Mass/Vol] 22 mg/dL Normal 9-24 [facility] Comment on above: Order Comment: Speci men Type: BLOOD SPECIMENOrdering Facility: [facility] Address: [address] [place] [address] Performed By: #### 2 4323-8 ####[id number] [address] [place] CASE MANAGEMon 08-17-2021 CASE MANAGEM Normal [facility] CBC panel Auto (Bld)on 08-17 Erythrocyte distribution width (RBC) [Ratio] 22.5 % High 11.5-15.0 [facility] Comment on above: Order Comment: Speci men Type: BLOOD SPECIMENOrdering Facility: [facility] Address: [address] [place], [place] [address] Performed By: #### 5 8410-2 ####[facility] LABIA [id number] [address] [place] Hematocrit (Bld) [Volume fraction] 35.4 % Low 39.0-51.0 [facility] Comment on above: Order Comment: Speci men Type: BLOOD SPECIMENOrdering Facility: [facility] Address: [address] [place], [place] [address] Performed By: #### 5 8410-2 ####[facility] LABIA [id number] [address] [facility] Hemoglobin (Bld) [Mass/Vol] 10.7 g/dL Low 13.0-17.0 [facility] Comment on above: Order Comment: Speci men Type: BLOOD SPECIMENOrdering Facility: [facility] Address: [address] [place] [address] Performed By: #### 5 8410-2 ####[facility] LABCLIA [id number] [address] [place] OF [facility] MCH (RBC) [Entitic mass] 24.6 pg Low 26.0-34.0 [facility] Comment on above: Order Comment: Speci men Type: BLOOD SPECIMENOrdering Facility: [facility] Address: [address] [place] [address] Performed By: #### 5 8410-2 ####[facility] LABIA [id number] [address] STATES OF [facility] MCHC (RBC) [Mass/Vol] 30.2 g/dL Low 30.5-36.0 [facility] Comment on above: Order Comment: Speci men Type: BLOOD SPECIMENOrdering Facility: [facility] Address: [address] [place], [place] [address] Performed By: #### 5 8410-2 ####[facility] LABIA [id number] [address] [place] MCV (RBC) [Entitic vol] 81.4 fL Normal 80.0-100.0 [facility] Comment on above: Order Comment: Speci men Type: BLOOD SPECIMENOrdering Facility: [facility] Address: [address] [place], [place] [address] Performed By: #### 5 8410-2 ####[facility] LABCLIA [id number] [address] [place] Nucleated RBC (Bld) [#/Vol] 10*3/uL Normal <0.01 [facility] Comment on above: Order Comment: Speci men Type: BLOOD SPECIMENOrdering Facility: [facility] Address: [address] [place], [place] [address] Performed By: #### 5 8410-2 ####[facility] LABIA [id number] [place] [address] [place] Platelet mean volume (Bld) [Entitic vol] 9.8 fL Normal 9.0-12.7 [facility] Comment on above: Order Comment: Speci men Type: BLOOD SPECIMENOrdering Facility: [facility] Address: [address] [place], [place] [address] Performed By: #### 5 8410-2 ####[facility] LABIA [id number] [place] [address] [place] Platelets (Bld) [#/Vol] 343 10*3/uL Normal 150-400 [facility] Comment on above: Order Comment: Speci men Type: BLOOD SPECIMENOrdering Facility: [facility] Address: [address] [place], [place] [address] Performed By: #### 5 8410-2 ####[facility] LABIA [id number] [place] [address] [place] RBC (Bld) [#/Vol] 4.35 10*6/uL Normal 4.20-6.00 [facility] Comment on above: Order Comment: Speci men Type: BLOOD SPECIMENOrdering Facility: [facility] Address: [address] [place] [address] Performed By: #### 5 8410-2 ####[facility] LABIA [id number] [place] [address] [place] WBC (Bld) [#/Vol] 6.96 10*3/uL Normal 3.70-11.00 [facility] Comment on above: Order Comment: Speci men Type: BLOOD SPECIMENOrdering Facility: [facility] Address: [address] [place], [place] [address] Performed By: #### 5 8410-2 ####[facility] LABCLIA [id number] [place] [address] [place] CONSULT PROGon 08-17-2021 CONSULT PROG Normal [facility] CONSULT PROG Normal [facility] Comprehensive metabolic 2000 panelon 08-17-2021 Albumin [Mass/Vol] 3.3 g/dL Low 3.9-4.9 [facility] Comment on above: Order Comment: Speci men Type: BLOOD SPECIMENOrdering Facility: [facility] Address: [address] [place], [place] [address] Performed By: #### 2 4323-8 ####[facility] LABCLIA [id number] [place] [address] [place] ALP [Catalytic activity/Vol] 147 U/L High 38-113 [facility] Comment on above: Order Comment: Speci men Type: BLOOD SPECIMENOrdering Facility: [facility] Address: [address] [place], [place] [address] Performed By: #### 2 4323-8 ####[facility] LABCLIA [id number] [place] [address] [place] ALT [Catalytic activity/Vol] 59 U/L High 10-54 [facility] Comment on above: Order Comment: Speci men Type: BLOOD SPECIMENOrdering Facility: [facility] Address: [address] [place] [phone] Performed By: #### 2 4323-8 ####[facility] LABIA [id number] [place] [address] [place] Anion gap [Moles/Vol] 11 mmol/L Normal 9-18 [facility] Comment on above: Order Comment: Speci men Type: BLOOD SPECIMENOrdering Facility: [facility] Address: [address] [place], [place] [address] Performed By: #### 2 4323-8 ####[facility] LABCLIA [id number] [place] [address] [place] AST [Catalytic activity/Vol] 53 U/L High 14-40 [facility] Comment on above: Order Comment: Speci men Type: BLOOD SPECIMENOrdering Facility: [facility] Address: [address] [place], [place] [address] Performed By: #### 2 4323-8 ####[facility] LABCLIA [id number] [place] [address] [place] Bilirubin [Mass/Vol] 1.7 mg/dL High 0.2-1.3 [facility] Comment on above: Order Comment: Speci men Type: BLOOD SPECIMENOrdering Facility: [facility] Address: [address] [place], [place] [address] Performed By: #### 2 4323-8 ####[facility] LABIA [id number] [place] [address] [place] Calcium [Mass/Vol] 9.1 mg/dL Normal 8.5-10.2 [facility] Comment on above: Order Comment: Speci men Type: BLOOD SPECIMENOrdering Facility: [facility] Address: [address] [place], [place] [address] Performed By: #### 2 4323-8 ####[facility] LABCLIA [id number] [place] [address] [place] Chloride [Moles/Vol] 101 mmol/L Normal 97-105 [facility] Comment on above: Order Comment: Speci men Type: BLOOD SPECIMENOrdering Facility: [facility] Address: [address] [place] [address] Performed By: #### 2 4323-8 ####[facility] LABCLIA [id number] [place] [address] [place] CO2 [Moles/Vol] 24 mmol/L Normal 22-30 [facility] Comment on above: Order Comment: Speci men Type: BLOOD SPECIMENOrdering Facility: [facility] Address: [address] [place] [address] Performed By: #### 2 4323-8 ####[facility] LABCLIA [id number] [facility] [place] [address] [place] Creatinine [Mass/Vol] 0.84 mg/dL Normal 0.73-1.22 [facility] Comment on above: Order Comment: Speci men Type: BLOOD SPECIMENOrdering Facility: [facility] Address: [address] [place] [address] Performed By: #### 2 4323-8 ####[facility] LABCLIA [id number] [place] [address] [place] ESTIMATED GLOMERULAR FILTRATION RATE 89 mL/min/1.73m??? Normal >=60 [facility] Comment on above: Order Comment: Speci men Type: BLOOD SPECIMENOrdering Facility: [facility] Address: [address] [place] [address] Result Comment: Fabiano mated Glomerular Filtration Rate (eGFR) is calculated using the 2020 CKD-EPI creatinine equation. This equation utilizes serum creatinine, sex, and age as parameters. The creatinine assay has traceable calibration to isotope dilution-mass spectrometry. Refer to KDIGO guidelines for clinical interpretation. In patients with unstable renal function, e.g. those with acute kidney injury, the eGFR may not accurately reflect actual GFR. Performed By: #### 2 4323-8 ####[facility] LABCLIA [id number] [facility] [place] [address] [place] Glucose [Mass/Vol] 81 mg/dL Normal 74-99 [facility] Comment on above: Order Comment: Speci men Type: BLOOD SPECIMENOrdering Facility: [facility] Address: [address] [place] [address] Result Comment: The [place] Diabetes Association (ADA) provides guidance for cutoff values for fasting glucose and random glucose. The ADA defines fasting as no caloric intake for at least 8 hours. Fasting plasma glucose results between 100 to 125 mg/dL indicate increased risk for diabetes (prediabetes).Fasting plasma glucose results greater than or equal to 126 mg/dL meet the criteria for diagnosis of diabetes. In the absence of unequivocal hyperglycemia, results should be confirmed by repeat testing. In a patient with classic symptoms of hyperglycemia or hyperglycemic crisis, random plasma glucose results greater than or equal to 200 mg/dL meet the criteria for diagnosis of diabetes.Reference: Standards of Medical Care in Diabetes 2016, [place] [employer]. Diabetes Care. 2016.39(Suppl 1). Performed By: #### 2 4323-8 ####[facility] LABCLIA [id number] [place] [address] [place] Potassium [Moles/Vol] 4.4 mmol/L Normal 3.7-5.1 [facility] Comment on above: Order Comment: Speci men Type: BLOOD SPECIMENOrdering Facility: [facility] Address: [address] [place] [address] Performed By: #### 2 4323-8 ####[facility] LABCLIA [id number] [place] [address] [place] Protein [Mass/Vol] 6.3 g/dL Normal 6.3-8.0 [facility] Comment on above: Order Comment: Speci men Type: BLOOD SPECIMENOrdering Facility: [facility] Address: [address] [place], [place] [address] Performed By: #### 2 4323-8 ####[facility] LABCLIA [id number] [place] [address] [place] Sodium [Moles/Vol] 136 mmol/L Normal 136-144 [facility] Comment on above: Order Comment: Speci men Type: BLOOD SPECIMENOrdering Facility: [facility] Address: [address] [address] Performed By: #### 2 4323-8 ####[facility] LABCLIA [id number] [address] [place] Urea nitrogen [Mass/Vol] 31 mg/dL High 9-24 [facility] Comment on above: Order Comment: Speci men Type: BLOOD SPECIMENOrdering Facility: [facility] Address: [address] [place] [address] Performed By: #### 2 4323-8 ####[facility] LABIA [id number] [place] NURSING PROGon 08-17-2021 NURSING PROG Normal [facility] PT panel Coag (PPP)on 2021 INR Coag (PPP) [Relative time] 2.0 {INR} High 0.9-1.3 [facility] Comment on above: Order Comment: Speci men Type: BLOOD SPECIMENOrdering Facility: [facility] Address: [address] [place] [address] Result Comment: Samantha min K Antagonist (VKA) Therapeutic Range: INR 2 to 3 (Target INR of 2.5)Note: For patients treated with VKA drugs, such as warfarin, the [place] [employer] 2012 Guideline recommends a therapeutic INR range of 2 to 3 (target INR of 2.5). This recommendation includes high-risk patients with antiphospholipid syndrome with previous arterial or venous thromboembolism, current-generation mechanical or bioprosthetic aortic heart valve replacement.Note: Patients with mechanical aortic valve replacement and additional risk factors for thromboembolic events (atrial fibrillation, previous thromboembolism, LV dysfunction, hypercoagulable conditions) or an older generation mechanical AVR (i.e., ball in-Cage) or any mechanical MVR should have a INR therapeutic range of 2.5 to 3.5 (target INR of 3).Gerard GH, et al. Chest 2012, 141:7S-47SNishimura RA, et al. JAC 2017, 70: 252-289 Performed By: #### 3 4528-0 ####[facility] LABCLIA [id number] [address] [place] PT Coag (PPP) [Time] 20.5 s High 9.7-13.0 [facility] Comment on above: Order Comment: Speci men Type: BLOOD SPECIMENOrdering Facility: [facility] Address: [address] [place], [place] [address] Performed By: #### 3 4528-0 ####[facility] LABIA [id number] [place] [address] [place] THERAPY NTon 08-17-2021 THERAPY NT Normal [facility] XR CHEST 2V FRONTAL/LATon XR CHEST 2V FRONTAL/LAT Normal [facility] ARTERIAL BLOOD GASESon 08-16 BASE DEFICIT, ARTERIAL -1 mmol/L Normal -2-0 [facility] Comment on above: Order Comment: Speci men Type: ARTERIAL BLOOD SPECIMENOrdering Facility: [facility] Address: [address] [place] [address] Performed By: #### A LLBG ####[facility] LABIA [id number] [address] [place] Body temperature 98.6 [degF] Normal [facility] Comment on above: Order Comment: Speci men Type: ARTERIAL BLOOD SPECIMENOrdering Facility: [facility] Address: [address] [place], [place] [address] Performed By: #### A LLBG ####[facility] LABIA [id number] [place] [address] [place] CALCIUM IONIZED, PH CORRECTED 1.21 mmol/L Normal 1.08-1.30 [facility] Comment on above: Order Comment: Speci men Type: ARTERIAL BLOOD SPECIMENOrdering Facility: [facility] Address: [address] [place], [place] [address] Performed By: #### A LLBG ####[facility] LABIA [id number] [place] [address] [place] Calcium.ionized (Bld) [Mass/Vol] 1.21 mmol/L Normal 1.08-1.30 [facility] Comment on above: Order Comment: Speci men Type: ARTERIAL BLOOD SPECIMENOrdering Facility: [facility] Address: [address] [place], [place] [address] Performed By: #### A LLBG ####[facility] LABCLIA [id number] [place] [address] [place] Carboxyhemoglobin (BldA) [Mass fraction] 1.2 % Normal 0.0-2.0 [facility] Comment on above: Order Comment: Speci men Type: ARTERIAL BLOOD SPECIMENOrdering Facility: [facility] Address: [address] [place], [place] [address] Result Comment: Carb oxyhemoglobin Reference Range for Smokers: 2.0-8.0% Performed By: #### A LLBG ####[facility] LABCLIA [id number] [place] [address] [place] CO2 (Bld) [Partial pressure] 38 mm Hg Normal 36-46 [facility] Comment on above: Order Comment: Speci men Type: ARTERIAL BLOOD SPECIMENOrdering Facility: [facility] Address: [address] [place] [address] Performed By: #### A LLBG ####[facility] LABCLIA [id number] [place] [address] [place] CO2 [Moles/Vol] 24 mmol/L Normal 22-28 [facility] Comment on above: Order Comment: Speci men Type: ARTERIAL BLOOD SPECIMENOrdering Facility: [facility] Address: [address] [place] [address] Performed By: #### A LLBG ####[facility] LABCLIA [id number] [place] [address] [place] Glucose [Mass/Vol] 102 mg/dL Normal 60-105 [facility] Comment on above: Order Comment: Speci men Type: ARTERIAL BLOOD SPECIMENOrdering Facility: [facility] Address: [address] [place], [place] [address] Performed By: #### A LLBG ####[facility] LABCLIA [id number] [place] [address] [place] HCO3 (Bld) [Moles/Vol] 23 mmol/L Normal 22-26 [facility] Comment on above: Order Comment: Speci men Type: ARTERIAL BLOOD SPECIMENOrdering Facility: [facility] Address: [address] [place], [place] [address] Performed By: #### A LLBG ####[facility] LABCLIA [id number] [place] [address] [place] Hematocrit (Bld) [Volume fraction] 31.7 % Low 39.0-51.0 [facility] Comment on above: Order Comment: Speci men Type: ARTERIAL BLOOD SPECIMENOrdering Facility: [facility] Address: [address] [place], [place] [address] Performed By: #### A LLBG ####[facility] LABCLIA [id number] [place] [address] [place] Hemoglobin (Bld) [Mass/Vol] 10.2 g/dL Low 13.0-17.0 [facility] Comment on above: Order Comment: Speci men Type: ARTERIAL BLOOD SPECIMENOrdering Facility: [facility] Address: [address] [place], [place] [address] Performed By: #### A LLBG ####[facility] LABCLIA [id number] [place] [address] [place] Lactate [Moles/Vol] 0.8 mmol/L Normal 0.5-2.2 [facility] Comment on above: Order Comment: Speci men Type: ARTERIAL BLOOD SPECIMENOrdering Facility: [facility] Address: [address] [place], [place] [address] Performed By: #### A LLBG ####[facility] LABCLIA [id number] [place] [id number] [place] Methemoglobin (Bld) [Mass fraction] 0.8 % Normal 0.0-1.5 [facility] Comment on above: Order Comment: Speci men Type: ARTERIAL BLOOD SPECIMENOrdering Facility: [facility] Address: [address] [place], [place] [address] Performed By: #### A LLBG ####[facility] LABCLIA [id number] [place] [address] [place] O2 THERAPY RA=Room Air Normal [facility] Comment on above: Order Comment: Speci men Type: ARTERIAL BLOOD SPECIMENOrdering Facility: [facility] Address: [address] [place] [address] Performed By: #### A LLBG ####[facility] LABCLIA [id number] [place] [address] [place] Oxygen (Bld) [Partial pressure] 102 mm Hg High 85-95 [facility] Comment on above: Order Comment: Speci men Type: ARTERIAL BLOOD SPECIMENOrdering Facility: [facility] Address: [address] [place], [place] [address] Performed By: #### A LLBG ####[facility] LABCLIA [id number] [place] [id number] [place] OXYGEN SATURATION, ARTERIAL 98 % Normal 95-98 [facility] Comment on above: Order Comment: Speci men Type: ARTERIAL BLOOD SPECIMENOrdering Facility: [facility] Address: [address] [place] [address] Performed By: #### A LLBG ####[facility] LABCLIA [id number] [place] [id number] [place] Oxyhemoglobin (BldA) [Mass fraction] 96 % Normal 95-98 [facility] Comment on above: Order Comment: Speci men Type: ARTERIAL BLOOD SPECIMENOrdering Facility: [facility] Address: [address] [place] [address] Performed By: #### A LLBG ####[facility] LABCLIA [id number] [place] [address] [place] pH (Bld) 7.40 [pH] Normal 7.35-7.45 [facility] Comment on above: Order Comment: Speci men Type: ARTERIAL BLOOD SPECIMENOrdering Facility: [facility] Address: [address] [place] [address] Performed By: #### A LLBG ####[facility] LABIA [id number] [place] [address] [place] Potassium [Moles/Vol] 4.2 mmol/L Normal 3.5-5.0 [facility] Comment on above: Order Comment: Speci men Type: ARTERIAL BLOOD SPECIMENOrdering Facility: [facility] Address: [address] [place], [place] [address] Performed By: #### A LLBG ####[facility] LABIA [id number] [place] [address] [place] Sodium [Moles/Vol] 137 mmol/L Normal 136-144 [facility] Comment on above: Order Comment: Speci men Type: ARTERIAL BLOOD SPECIMENOrdering Facility: [facility] Address: [address] [place], [place] [address] Performed By: #### A LLBG ####[facility] LABCLIA [id number] [place] [address] [place] Base excess Calc (Bld) [Moles/Vol] 1 mmol/L Normal 0-2 [facility] Comment on above: Order Comment: Speci men Type: ARTERIAL BLOOD SPECIMENOrdering Facility: [facility] Address: [address] [place], [place] [address] Performed By: #### A LLBG ####[facility] LABCLIA [id number] [place] [address] [place] Body temperature 98.6 [degF] Normal [facility] Comment on above: Order Comment: Speci men Type: ARTERIAL BLOOD SPECIMENOrdering Facility: [facility] Address: [address] [place], [place] [address] Performed By: #### A LLBG ####[facility] LABCLIA [id number] [place] [address] [place] CALCIUM IONIZED, PH CORRECTED 1.22 mmol/L Normal 1.08-1.30 [facility] Comment on above: Order Comment: Speci men Type: ARTERIAL BLOOD SPECIMENOrdering Facility: [facility] Address: [address] [place], [place] [address] Performed By: #### A LLBG ####[facility] LABCLIA [id number] [place] [address] [place] Calcium.ionized (Bld) [Mass/Vol] 1.19 mmol/L Normal 1.08-1.30 [facility] Comment on above: Order Comment: Speci men Type: ARTERIAL BLOOD SPECIMENOrdering Facility: [facility] Address: [address] [place], [place] [address] Performed By: #### A LLBG ####[facility] LABIA [id number] [place] [address] [place] Carboxyhemoglobin (BldA) [Mass fraction] 1.5 % Normal 0.0-2.0 [facility] Comment on above: Order Comment: Speci men Type: ARTERIAL BLOOD SPECIMENOrdering Facility: [facility] Address: [address] [place], [place] [address] Result Comment: Carb oxyhemoglobin Reference Range for Smokers: 2.0-8.0% Performed By: #### A LLBG ####[facility] LABCLIA [id number] [place] [address] [place] CO2 (Bld) [Partial pressure] 37 mm Hg Normal 36-46 [facility] Comment on above: Order Comment: Speci men Type: ARTERIAL BLOOD SPECIMENOrdering Facility: [facility] Address: [address] [place], [place] [address] Performed By: #### A LLBG ####[facility] LABCLIA [id number] [place] [address] [place] CO2 [Moles/Vol] 26 mmol/L Normal 22-28 [facility] Comment on above: Order Comment: Speci men Type: ARTERIAL BLOOD SPECIMENOrdering Facility: [facility] Address: [address] [place], [place] [address] Performed By: #### A LLBG ####[facility] LABCLIA [id number] [place] [address] [place] Glucose [Mass/Vol] 102 mg/dL Normal 60-105 [facility] Comment on above: Order Comment: Speci men Type: ARTERIAL BLOOD SPECIMENOrdering Facility: [facility] Address: [address] [place], [place] [address] Performed By: #### A LLBG ####[facility] LABCLIA [id number] [place] [address] [place] HCO3 (Bld) [Moles/Vol] 25 mmol/L Normal 22-26 [facility] Comment on above: Order Comment: Speci men Type: ARTERIAL BLOOD SPECIMENOrdering Facility: [facility] Address: [address] [place], [place] [address] Performed By: #### A LLBG ####[facility] LABCLIA [id number] [place] [address] [place] Hematocrit (Bld) [Volume fraction] 34.6 % Low 39.0-51.0 [facility] Comment on above: Order Comment: Speci men Type: ARTERIAL BLOOD SPECIMENOrdering Facility: [facility] Address: [address] [place], [place] [address] Performed By: #### A LLBG ####[facility] LABCLIA [id number] [place] [address] [place] Hemoglobin (Bld) [Mass/Vol] 11.2 g/dL Low 13.0-17.0 [facility] Comment on above: Order Comment: Speci men Type: ARTERIAL BLOOD SPECIMENOrdering Facility: [facility] Address: [address] [place], [place] [address] Performed By: #### A LLBG ####[facility] LABIA [id number] [place] [address] [place] Lactate [Moles/Vol] 1.0 mmol/L Normal 0.5-2.2 [facility] Comment on above: Order Comment: Speci men Type: ARTERIAL BLOOD SPECIMENOrdering Facility: [facility] Address: [address] [place], [place] [address] Performed By: #### A LLBG ####[facility] LABIA [id number] [place] [address] [place] Methemoglobin (Bld) [Mass fraction] 0.7 % Normal 0.0-1.5 [facility] Comment on above: Order Comment: Speci men Type: ARTERIAL BLOOD SPECIMENOrdering Facility: [facility] Address: [address] [place], [place] [address] Performed By: #### A LLBG ####[facility] LABIA [id number] [place] [address] [place] O2 THERAPY RA=Room Air Normal [facility] Comment on above: Order Comment: Speci men Type: ARTERIAL BLOOD SPECIMENOrdering Facility: [facility] Address: [address] [place] [address] Performed By: #### A LLBG ####[facility] LABIA [id number] [place] [address] [place] Oxygen (Bld) [Partial pressure] 109 mm Hg High 85-95 [facility] Comment on above: Order Comment: Speci men Type: ARTERIAL BLOOD SPECIMENOrdering Facility: [facility] Address: [address] [place] [address] Performed By: #### A LLBG ####[facility] LABCLIA [id number] [place] [address] [place] OXYGEN SATURATION, ARTERIAL 99 % High 95-98 [facility] Comment on above: Order Comment: Speci men Type: ARTERIAL BLOOD SPECIMENOrdering Facility: [facility] Address: [address] [place] [address] Performed By: #### A LLBG ####[facility] LABCLIA [id number] [place] [address] [place] Oxyhemoglobin (BldA) [Mass fraction] 97 % Normal 95-98 [facility] Comment on above: Order Comment: Speci men Type: ARTERIAL BLOOD SPECIMENOrdering Facility: [facility] Address: [address] [place] [address] Performed By: #### A LLBG ####[facility] LABCLIA [id number] [place] [address] [place] pH (Bld) 7.44 [pH] Normal 7.35-7.45 [facility] Comment on above: Order Comment: Speci men Type: ARTERIAL BLOOD SPECIMENOrdering Facility: [facility] Address: [address] [place] [address] Performed By: #### A LLBG ####[facility] LABCLIA [id number] [place] [address] [place] Potassium [Moles/Vol] 4.3 mmol/L Normal 3.5-5.0 [facility] Comment on above: Order Comment: Speci men Type: ARTERIAL BLOOD SPECIMENOrdering Facility: [facility] Address: [address] [place], [place] [address] Performed By: #### A LLBG ####[facility] LABCLIA [id number] [place] [address] [place] Sodium [Moles/Vol] 138 mmol/L Normal 136-144 [facility] Comment on above: Order Comment: Speci men Type: ARTERIAL BLOOD SPECIMENOrdering Facility: [facility] Address: [address] [place] [address] Performed By: #### A LLBG ####[facility] LABCLIA [id number] [place] [address] [place] Base excess Calc (Bld) [Moles/Vol] 1 mmol/L Normal 0-2 [facility] Comment on above: Order Comment: Speci men Type: ARTERIAL BLOOD SPECIMENOrdering Facility: [facility] Address: [address] [place] [address] Performed By: #### A LLBG ####[facility] LABCLIA [id number] [place] [address] [place] Body temperature 98.6 [degF] Normal [facility] Comment on above: Order Comment: Speci men Type: ARTERIAL BLOOD SPECIMENOrdering Facility: [facility] Address: [address] [place], [place] [address] Performed By: #### A LLBG ####[facility] LABIA [id number] [place] [address] [place] CALCIUM IONIZED, PH CORRECTED 1.24 mmol/L Normal 1.08-1.30 [facility] Comment on above: Order Comment: Speci men Type: ARTERIAL BLOOD SPECIMENOrdering Facility: [facility] Address: [address] [place], [place] [address] Performed By: #### A LLBG ####[facility] LABCLIA [id number] [place] [address] [place] Calcium.ionized (Bld) [Mass/Vol] 1.21 mmol/L Normal 1.08-1.30 [facility] Comment on above: Order Comment: Speci men Type: ARTERIAL BLOOD SPECIMENOrdering Facility: [facility] Address: [address] [place], [place] [address] Performed By: #### A LLBG ####[facility] LABCLIA [id number] [place] [address] [place] Carboxyhemoglobin (BldA) [Mass fraction] 1.2 % Normal 0.0-2.0 [facility] Comment on above: Order Comment: Speci men Type: ARTERIAL BLOOD SPECIMENOrdering Facility: [facility] Address: [address] [place], [place] [address] Result Comment: Carb oxyhemoglobin Reference Range for Smokers: 2.0-8.0% Performed By: #### A LLBG ####[facility] LABCLIA [id number] [place] [address] [place] CO2 (Bld) [Partial pressure] 37 mm Hg Normal 36-46 [facility] Comment on above: Order Comment: Speci men Type: ARTERIAL BLOOD SPECIMENOrdering Facility: [facility] Address: [address] [place] [address] Performed By: #### A LLBG ####[facility] LABCLIA [id number] [place] [address] [place] [place] CO2 [Moles/Vol] 26 mmol/L Normal 22-28 [facility] Comment on above: Order Comment: Speci men Type: ARTERIAL BLOOD SPECIMENOrdering Facility: [facility] Address: [address] [place], [place] [address] Performed By: #### A LLBG ####[facility] LABIA [id number] [place] [address] [place] Glucose [Mass/Vol] 108 mg/dL High 60-105 [facility] Comment on above: Order Comment: Speci men Type: ARTERIAL BLOOD SPECIMENOrdering Facility: [facility] Address: [address] [place], [place] [address] Performed By: #### A LLBG ####[facility] LABCLIA [id number] [place] [address] [place] HCO3 (Bld) [Moles/Vol] 24 mmol/L Normal 22-26 [facility] Comment on above: Order Comment: Speci men Type: ARTERIAL BLOOD SPECIMENOrdering Facility: [facility] Address: [address] [place], [place] [address] Performed By: #### A LLBG ####[facility] LABCLIA [id number] [place] [address] [place] Hematocrit (Bld) [Volume fraction] 34.8 % Low 39.0-51.0 [facility] Comment on above: Order Comment: Speci men Type: ARTERIAL BLOOD SPECIMENOrdering Facility: [facility] Address: [address] [place], [place] [address] Performed By: #### A LLBG ####[facility] LABIA [id number] [place] [address] [place] Hemoglobin (Bld) [Mass/Vol] 11.3 g/dL Low 13.0-17.0 [facility] Comment on above: Order Comment: Speci men Type: ARTERIAL BLOOD SPECIMENOrdering Facility: [facility] Address: [address] [place], [place] [address] Performed By: #### A LLBG ####[facility] LABCLIA [id number] [place] [address] [place] Lactate [Moles/Vol] 0.8 mmol/L Normal 0.5-2.2 [facility] Comment on above: Order Comment: Speci men Type: ARTERIAL BLOOD SPECIMENOrdering Facility: [facility] Address: [address] [place], [place] [address] Performed By: #### A LLBG ####[facility] LABIA [id number] [place] [address] [place] Methemoglobin (Bld) [Mass fraction] 0.6 % Normal 0.0-1.5 [facility] Comment on above: Order Comment: Speci men Type: ARTERIAL BLOOD SPECIMENOrdering Facility: [facility] Address: [address] [place] [address] Performed By: #### A LLBG ####[facility] LABCLIA [id number] [place] [address] [place] O2 THERAPY RA=Room Air Normal [facility] Comment on above: Order Comment: Speci men Type: ARTERIAL BLOOD SPECIMENOrdering Facility: [facility] Address: [address] [place] [address] Performed By: #### A LLBG ####[facility] LABCLIA [id number] [place] [address] [place] Oxygen (Bld) [Partial pressure] 105 mm Hg High 85-95 [facility] Comment on above: Order Comment: Speci men Type: ARTERIAL BLOOD SPECIMENOrdering Facility: [facility] Address: [address] [place] [address] Performed By: #### A LLBG ####[facility] LABCLIA [id number] [place] [address] [place] OXYGEN SATURATION, ARTERIAL 98 % Normal 95-98 [facility] Comment on above: Order Comment: Speci men Type: ARTERIAL BLOOD SPECIMENOrdering Facility: [facility] Address: [address] [place] [address] Performed By: #### A LLBG ####[facility] LABCLIA [id number] [place] [id number] [place] Oxyhemoglobin (BldA) [Mass fraction] 96 % Normal 95-98 [facility] Comment on above: Order Comment: Speci men Type: ARTERIAL BLOOD SPECIMENOrdering Facility: [facility] Address: [address] [place] [id number] Performed By: #### A LLBG ####[facility] LABCLIA [id number] [place] [address] [place] pH (Bld) 7.43 [pH] Normal 7.35-7.45 [facility] Comment on above: Order Comment: Speci men Type: ARTERIAL BLOOD SPECIMENOrdering Facility: [facility] Address: [address] [place], [place] [address] Performed By: #### A LLBG ####[facility] LABCLIA [id number] [place] [address] [place] Potassium [Moles/Vol] 4.3 mmol/L Normal 3.5-5.0 [facility] Comment on above: Order Comment: Speci men Type: ARTERIAL BLOOD SPECIMENOrdering Facility: [facility] Address: [address] [place], [place] [address] Performed By: #### A LLBG ####[facility] LABIA [id number] [place] [address] [place] CBC panel Auto (Bld)on 08-16 Erythrocyte distribution width (RBC) [Ratio] 22.5 % High 11.5-15.0 [facility] Comment on above: Order Comment: Speci men Type: BLOOD SPECIMENOrdering Facility: [facility] Address: [address] [place], [place] [address] Performed By: #### 5 8410-2 ####[facility] LABCLIA [id number] [place] [address] [place] Hematocrit (Bld) [Volume fraction] 34.0 % Low 39.0-51.0 [facility] Comment on above: Order Comment: Speci men Type: BLOOD SPECIMENOrdering Facility: [facility] Address: [address] [place], [place] [address] Performed By: #### 5 8410-2 ####[facility] LABCLIA [id number] [place] [address] [place] [facility] Hemoglobin (Bld) [Mass/Vol] 10.9 g/dL Low 13.0-17.0 [facility] Comment on above: Order Comment: Speci men Type: BLOOD SPECIMENOrdering Facility: [facility] Address: [address] [place] [address] Performed By: #### 5 8410-2 ####[facility] LABIA [id number] [address] [place] MCH (RBC) [Entitic mass] 25.4 pg Low 26.0-34.0 [facility] Comment on above: Order Comment: Speci men Type: BLOOD SPECIMENOrdering Facility: [facility] Address: [address] [place] [address] Performed By: #### 5 8410-2 ####[facility] LABIA [id number] [address] STATES OF [facility] MCHC (RBC) [Mass/Vol] 32.1 g/dL Normal 30.5-36.0 [facility] Comment on above: Order Comment: Speci men Type: BLOOD SPECIMENOrdering Facility: [facility] Address: [address] [place], [place] [address] Performed By: #### 5 8410-2 ####[facility] LABIA [id number] [place] [address] [place] MCV (RBC) [Entitic vol] 79.3 fL Low 80.0-100.0 [facility] Comment on above: Order Comment: Speci men Type: BLOOD SPECIMENOrdering Facility: [facility] Address: [address] [place], [place] [address] Performed By: #### 5 8410-2 ####[facility] LABIA [id number] [place] [address] [place] Nucleated RBC (Bld) [#/Vol] 10*3/uL Normal <0.01 [facility] Comment on above: Order Comment: Speci men Type: BLOOD SPECIMENOrdering Facility: [facility] Address: [address] [place], [place] [address] Performed By: #### 5 8410-2 ####[facility] LABCLIA [id number] [place] [address] [place] Platelet mean volume (Bld) [Entitic vol] 10.2 fL Normal 9.0-12.7 [facility] Comment on above: Order Comment: Speci men Type: BLOOD SPECIMENOrdering Facility: [facility] Address: [address] [place], [place] [address] Performed By: #### 5 8410-2 ####[facility] LABCLIA [id number] [place] [address] [place] Platelets (Bld) [#/Vol] 382 10*3/uL Normal 150-400 [facility] Comment on above: Order Comment: Speci men Type: BLOOD SPECIMENOrdering Facility: [facility] Address: [address] [place], [place] [address] Performed By: #### 5 8410-2 ####[facility] LABCLIA [id number] [place] [address] [place] RBC (Bld) [#/Vol] 4.29 10*6/uL Normal 4.20-6.00 [facility] Comment on above: Order Comment: Speci men Type: BLOOD SPECIMENOrdering Facility: [facility] Address: [address] [place], [place] [address] Performed By: #### 5 8410-2 ####[facility] LABCLIA [id number] [place] [address] [place] WBC (Bld) [#/Vol] 8.56 10*3/uL Normal 3.70-11.00 [facility] Comment on above: Order Comment: Speci men Type: BLOOD SPECIMENOrdering Facility: [facility] Address: [address] [place] [address] Performed By: #### 5 8410-2 ####[facility] LABCLIA [id number] [address] [place] Comp Metab 2000 Pnl SerPlon 08-16-2021 Sodium [Moles/Vol] 136 mmol/L Normal 136-144 [facility] Comment on above: Order Comment: Speci men Type: BLOOD SPECIMENOrdering Facility: [facility] Address: [address] [place] [address] Performed By: #### 2 4323-8 ####[facility] LABCLIA [id number] [place] [address] [place] Order Comment: Speci men Type: ARTERIAL BLOOD SPECIMENOrdering Facility: [facility] Address: [address] [place], [place] [address] Performed By: #### A LLBG ####[facility] LABCLIA [id number] [address] OF [place] Comprehensive metabolic 2000 panelon 08-16-2021 Albumin [Mass/Vol] 3.7 g/dL Low 3.9-4.9 [facility] Comment on above: Order Comment: Speci men Type: BLOOD SPECIMENOrdering Facility: [facility] Address: [address] [place] [address] Performed By: #### 2 4323-8 ####[facility] LABCLIA [id number] [place] [address] [place] ALP [Catalytic activity/Vol] 152 U/L High 38-113 [facility] Comment on above: Order Comment: Speci men Type: BLOOD SPECIMENOrdering Facility: [facility] Address: [address] [place] [address] Performed By: #### 2 4323-8 ####[facility] LABCLIA [id number] [place] [address] [place] ALT [Catalytic activity/Vol] 62 U/L High 10-54 [facility] Comment on above: Order Comment: Speci men Type: BLOOD SPECIMENOrdering Facility: [facility] Address: [address] [place] [address] Performed By: #### 2 4323-8 ####[facility] LABCLIA [id number] [place] [address] [place] Anion gap [Moles/Vol] 11 mmol/L Normal 9-18 [facility] Comment on above: Order Comment: Speci men Type: BLOOD SPECIMENOrdering Facility: [facility] Address: [address] [place] [address] Performed By: #### 2 4323-8 ####[facility] LABCLIA [id number] [place] [address] [place] AST [Catalytic activity/Vol] 55 U/L High 14-40 [facility] Comment on above: Order Comment: Speci men Type: BLOOD SPECIMENOrdering Facility: [facility] Address: [address] [place], [place] [address] Performed By: #### 2 4323-8 ####[facility] LABCLIA [id number] [place] [address] [place] Bilirubin [Mass/Vol] 1.8 mg/dL High 0.2-1.3 [facility] Comment on above: Order Comment: Speci men Type: BLOOD SPECIMENOrdering Facility: [facility] Address: [address] [place], [place] [address] Performed By: #### 2 4323-8 ####[facility] LABCLIA [id number] [place] [address] [place] Calcium [Mass/Vol] 9.0 mg/dL Normal 8.5-10.2 [facility] Comment on above: Order Comment: Speci men Type: BLOOD SPECIMENOrdering Facility: [facility] Address: [address] [place], [place] [address] Performed By: #### 2 4323-8 ####[facility] LABCLIA [id number] [place] [address] [place] Chloride [Moles/Vol] 101 mmol/L Normal 97-105 [facility] Comment on above: Order Comment: Speci men Type: BLOOD SPECIMENOrdering Facility: [facility] Address: [address] [place], [place] [address] Performed By: #### 2 4323-8 ####[facility] LABCLIA [id number] [place] [address] [place] CO2 [Moles/Vol] 24 mmol/L Normal 22-30 [facility] Comment on above: Order Comment: Speci men Type: BLOOD SPECIMENOrdering Facility: [facility] Address: [address] [place], [place] [address] Performed By: #### 2 4323-8 ####[facility] LABCLIA [id number] [place] [address] [place] Creatinine [Mass/Vol] 0.93 mg/dL Normal 0.73-1.22 [facility] Comment on above: Order Comment: Speci men Type: BLOOD SPECIMENOrdering Facility: [facility] Address: [address] [place], [place] [address] Performed By: #### 2 4323-8 ####[facility] LABCLIA [id number] [place] [address] [place] ESTIMATED GLOMERULAR FILTRATION RATE 84 mL/min/1.73m??? Normal >=60 [facility] Comment on above: Order Comment: Speci men Type: BLOOD SPECIMENOrdering Facility: [facility] Address: [address] [place], [place] [address] Result Comment: Fabiano mated Glomerular Filtration Rate (eGFR) is calculated using the 2020 CKD-EPI creatinine equation. This equation utilizes serum creatinine, sex, and age as parameters. The creatinine assay has traceable calibration to isotope dilution-mass spectrometry. Refer to KDIGO guidelines for clinical interpretation. In patients with unstable renal function, e.g. those with acute kidney injury, the eGFR may not accurately reflect actual GFR. Performed By: #### 2 4323-8 ####[facility] LABCLIA [id number] [place] [address] [place] Glucose [Mass/Vol] 97 mg/dL Normal 74-99 [facility] Comment on above: Order Comment: An cadena Type: BLOOD SPECIMENOrdering Facility: [facility] Address: [address] [place] [address] Result Comment: The [place] [employer] (ADA) provides guidance for cutoff values for fasting glucose and random glucose. The ADA defines fasting as no caloric intake for at least 8 hours. Fasting plasma glucose results between 100 to 125 mg/dL indicate increased risk for diabetes (prediabetes).Fasting plasma glucose results greater than or equal to 126 mg/dL meet the criteria for diagnosis of diabetes. In the absence of unequivocal hyperglycemia, results should be confirmed by repeat testing. In a patient with classic symptoms of hyperglycemia or hyperglycemic crisis, random plasma glucose results greater than or equal to 200 mg/dL meet the criteria for diagnosis of diabetes.Reference: Standards of Medical Care in Diabetes 2016, [place] [employer]. Diabetes Care. 2016.39(Suppl 1). Performed By: #### 2 4323-8 ####[facility] LABIA [id number] [place] [address] [place] Potassium [Moles/Vol] 4.4 mmol/L Normal 3.7-5.1 [facility] Comment on above: Order Comment: An cadena Type: BLOOD SPECIMENOrdering Facility: [facility] Address: [address] [place] [phone] Performed By: #### 2 4323-8 ####[facility] LABCLIA [id number] [place] [address] [place] Protein [Mass/Vol] 6.5 g/dL Normal 6.3-8.0 [facility] Comment on above: Order Comment: An cadena Type: BLOOD SPECIMENOrdering Facility: [facility] Address: [address] [place] [address] Performed By: #### 2 4323-8 ####[facility] LABCLIA [id number] [address] [place] Urea nitrogen [Mass/Vol] 43 mg/dL High 9-24 [facility] Comment on above: Order Comment: An cadena Type: BLOOD SPECIMENOrdering Facility: [facility] Address: [address] [place] [address] Performed By: #### 2 4323-8 ####[facility] LABIA [id number] [address] [place] NURSING PROGon 08-16-2021 NURSING PROG Normal [facility] PT panel Coag (PPP)on 2021 INR Coag (PPP) [Relative time] 2.2 {INR} High 0.9-1.3 [facility] Comment on above: Order Comment: An cadena Type: BLOOD SPECIMENOrdering Facility: [facility] Address: [address] [place] [address] Result Comment: Samantha min K Antagonist (VKA) Therapeutic Range: INR 2 to 3 (Target INR of 2.5)Note: For patients treated with VKA drugs, such as warfarin, the [place] [employer] 2012 Guideline recommends a therapeutic INR range of 2 to 3 (target INR of 2.5). This recommendation includes high-risk patients with antiphospholipid syndrome with previous arterial or venous thromboembolism, current-generation mechanical or bioprosthetic aortic heart valve replacement.Note: Patients with mechanical aortic valve replacement and additional risk factors for thromboembolic events (atrial fibrillation, previous thromboembolism, LV dysfunction, hypercoagulable conditions) or an older generation mechanical AVR (i.e., ball in-Cage) or any mechanical MVR should have a INR therapeutic range of 2.5 to 3.5 (target INR of 3).Guyatt GH, et al. Chest 2012, 141:7S-47SNishimura RA, et al. [facility] 2017, 70: 252-289 Performed By: #### 3 4528-0 ####[facility] LABCLIA [id number] [place] [address] [place] PT Coag (PPP) [Time] 22.4 s High 9.7-13.0 [facility] Comment on above: Order Comment: Speci men Type: BLOOD SPECIMENOrdering Facility: [facility] Address: [address] [place] [address] Performed By: #### 3 4528-0 ####[facility] LABCLIA [id number] [place] [address] [place] THERAPY NTon 08-16-2021 THERAPY NT Normal [facility] TYPE + SCREENon 08-16-2021 ABO A Normal [facility] Comment on above: Order Comment: Speci men Type: BLOOD SPECIMENOrdering Facility: [facility] Address: [address] [place] [address] Performed By: #### T SCR ####[facility] BLOOD BANKIA [id number] [place] [address] [place] HISTORICAL AB SCR STATUS Negative Normal [facility] Comment on above: Order Comment: Speci men Type: BLOOD SPECIMENOrdering Facility: [facility] Address: [address] [place], [place] [address] Performed By: #### T SCR ####[facility] BLOOD BANKIA [id number] [place] [address] [place] Rh Nom (Bld) Positive Normal [facility] Comment on above: Order Comment: Speci men Type: BLOOD SPECIMENOrdering Facility: [facility] Address: [address] [place], [place] [address] Performed By: #### T SCR ####[facility] BLOOD BANKIA [id number] [place] [address] [place] TYPE AND SCREEN EXPIRATION 08/19/2021 23:59 Normal [facility] Comment on above: Order Comment: Speci men Type: BLOOD SPECIMENOrdering Facility: [facility] Address: [address] [place] [address] Performed By: #### T SCR ####[facility] BLOOD BANKIA [id number] [place] [address] [place] XR CHEST 1V FRONTAL PORTon 0 08-16-2021 XR CHEST 1V FRONTAL PORT Normal [facility] ARTERIAL BLOOD GASESon 08-15 Base excess Calc (Bld) [Moles/Vol] 0 mmol/L Normal 0-2 [facility] Comment on above: Order Comment: Speci men Type: ARTERIAL BLOOD SPECIMENOrdering Facility: [facility] Address: [address] [place], [place] [address] Performed By: #### A LLBG ####[facility] LABCLIA [id number] [address] Body temperature 98.6 [degF] Normal [facility] Comment on above: Order Comment: Speci men Type: ARTERIAL BLOOD SPECIMENOrdering Facility: [facility] Address: [address] [place], [place] [address] Performed By: #### A LLBG ####[facility] LABCLIA [id number] [place] [address] [place] CALCIUM IONIZED, PH CORRECTED 1.22 mmol/L Normal 1.08-1.30 [facility] Comment on above: Order Comment: Speci men Type: ARTERIAL BLOOD SPECIMENOrdering Facility: [facility] Address: [address] [place], [place] [address] Performed By: #### A LLBG ####[facility] LABCLIA [id number] [place] [address] [place] Calcium.ionized (Bld) [Mass/Vol] 1.19 mmol/L Normal 1.08-1.30 [facility] Comment on above: Order Comment: Speci men Type: ARTERIAL BLOOD SPECIMENOrdering Facility: [facility] Address: [address] [place], [place] [address] Performed By: #### A LLBG ####[facility] LABCLIA [id number] [place] [address] [place] Carboxyhemoglobin (BldA) [Mass fraction] 1.5 % Normal 0.0-2.0 [facility] Comment on above: Order Comment: Speci men Type: ARTERIAL BLOOD SPECIMENOrdering Facility: [facility] Address: [address] [place], [place] [address] Result Comment: Carb oxyhemoglobin Reference Range for Smokers: 2.0-8.0% Performed By: #### A LLBG ####[facility] LABCLIA [id number] [place] [address] [place] CO2 (Bld) [Partial pressure] 34 mm Hg Low 36-46 [facility] Comment on above: Order Comment: Speci men Type: ARTERIAL BLOOD SPECIMENOrdering Facility: [facility] Address: [address] [place], [place] [address] Performed By: #### A LLBG ####[facility] LABCLIA [id number] [place] [address] [place] CO2 [Moles/Vol] 25 mmol/L Normal 22-28 [facility] Comment on above: Order Comment: Speci men Type: ARTERIAL BLOOD SPECIMENOrdering Facility: [facility] Address: [address] [place], [place] [address] Performed By: #### A LLBG ####[facility] LABCLIA [id number] [place] [address] [place] Glucose [Mass/Vol] 116 mg/dL High 60-105 [facility] Comment on above: Order Comment: Speci men Type: ARTERIAL BLOOD SPECIMENOrdering Facility: [facility] Address: [address] [place], [place] [address] Performed By: #### A LLBG ####[facility] LABCLIA [id number] [place] [address] [place] HCO3 (Bld) [Moles/Vol] 23 mmol/L Normal 22-26 [facility] Comment on above: Order Comment: Speci men Type: ARTERIAL BLOOD SPECIMENOrdering Facility: [facility] Address: [address] [place], [place] [address] Performed By: #### A LLBG ####[facility] LABCLIA [id number] [place] [address] [place] Hematocrit (Bld) [Volume fraction] 34.5 % Low 39.0-51.0 [facility] Comment on above: Order Comment: Speci men Type: ARTERIAL BLOOD SPECIMENOrdering Facility: [facility] Address: [address] [place], [place] [address] Performed By: #### A LLBG ####[facility] LABCLIA [id number] [place] [address] [place] Hemoglobin (Bld) [Mass/Vol] 11.2 g/dL Low 13.0-17.0 [facility] Comment on above: Order Comment: Speci men Type: ARTERIAL BLOOD SPECIMENOrdering Facility: [facility] Address: [address] [place], [place] [address] Performed By: #### A LLBG ####[facility] LABCLIA [id number] [place] [address] [place] Lactate [Moles/Vol] 1.0 mmol/L Normal 0.5-2.2 [facility] Comment on above: Order Comment: Speci men Type: ARTERIAL BLOOD SPECIMENOrdering Facility: [facility] Address: [address] [place], [place] [address] Performed By: #### A LLBG ####[facility] LABCLIA [id number] [address] [address] [place] Methemoglobin (Bld) [Mass fraction] 0.8 % Normal 0.0-1.5 [facility] Comment on above: Order Comment: Speci men Type: ARTERIAL BLOOD SPECIMENOrdering Facility: [facility] Address: [address] [place], [place] [address] Performed By: #### A LLBG ####[facility] LABCLIA [id number] [place] [id number] [place] O2 THERAPY RA=Room Air Normal [facility] Comment on above: Order Comment: Speci men Type: ARTERIAL BLOOD SPECIMENOrdering Facility: [facility] Address: [address] [place], [place] [address] Performed By: #### A LLBG ####[facility] LABCLIA [id number] [place] [address] [place] Oxygen (Bld) [Partial pressure] 114 mm Hg High 85-95 [facility] Comment on above: Order Comment: Speci men Type: ARTERIAL BLOOD SPECIMENOrdering Facility: [facility] Address: [address] [place], [place] [phone] Performed By: #### A LLBG ####[facility] LABCLIA [id number] [place] [id number] [place] OXYGEN SATURATION, ARTERIAL 99 % High 95-98 [facility] Comment on above: Order Comment: Speci men Type: ARTERIAL BLOOD SPECIMENOrdering Facility: [facility] Address: [address] [place] [address] Performed By: #### A LLBG ####[facility] LABCLIA [id number] [place] [id number] [place] Oxyhemoglobin (BldA) [Mass fraction] 97 % Normal 95-98 [facility] Comment on above: Order Comment: Speci men Type: ARTERIAL BLOOD SPECIMENOrdering Facility: [facility] Address: [address] [place] [address] Performed By: #### A LLBG ####[facility] LABCLIA [id number] [place] [address] [place] pH (Bld) 7.45 [pH] Normal 7.35-7.45 [facility] Comment on above: Order Comment: Speci men Type: ARTERIAL BLOOD SPECIMENOrdering Facility: [facility] Address: [address] [place] [address] Performed By: #### A LLBG ####[facility] LABIA [id number] [place] [address] [place] Potassium [Moles/Vol] 4.4 mmol/L Normal 3.5-5.0 [facility] Comment on above: Order Comment: Speci men Type: ARTERIAL BLOOD SPECIMENOrdering Facility: [facility] Address: [address] [place], [place] [address] Performed By: #### A LLBG ####[facility] LABIA [id number] [place] [address] [place] Sodium [Moles/Vol] 137 mmol/L Normal 136-144 [facility] Comment on above: Order Comment: Speci men Type: ARTERIAL BLOOD SPECIMENOrdering Facility: [facility] Address: [address] [place] [phone] Performed By: #### A LLBG ####[facility] LABIA [id number] [place] [address] [place] Base excess Calc (Bld) [Moles/Vol] 0 mmol/L Normal 0-2 [facility] Comment on above: Order Comment: Speci men Type: ARTERIAL BLOOD SPECIMENOrdering Facility: [facility] Address: [address] [place] [phone] Performed By: #### A LLBG ####[facility] LABIA [id number] [place] [address] [place] Body temperature 98.6 [degF] Normal [facility] Comment on above: Order Comment: Speci men Type: ARTERIAL BLOOD SPECIMENOrdering Facility: [facility] Address: [address] [place], [place] [address] Performed By: #### A LLBG ####[facility] LABCLIA [id number] [place] [address] [place] CALCIUM IONIZED, PH CORRECTED 1.21 mmol/L Normal 1.08-1.30 [facility] Comment on above: Order Comment: Speci men Type: ARTERIAL BLOOD SPECIMENOrdering Facility: [facility] Address: [address] [place], [place] [address] Performed By: #### A LLBG ####[facility] LABCLIA [id number] [place] [address] [place] Calcium.ionized (Bld) [Mass/Vol] 1.15 mmol/L Normal 1.08-1.30 [facility] Comment on above: Order Comment: Speci men Type: ARTERIAL BLOOD SPECIMENOrdering Facility: [facility] Address: [address] [place], [place] [address] Performed By: #### A LLBG ####[facility] LABIA [id number] [address] [place] Carboxyhemoglobin (BldA) [Mass fraction] 1.7 % Normal 0.0-2.0 [facility] Comment on above: Order Comment: Speci men Type: ARTERIAL BLOOD SPECIMENOrdering Facility: [facility] Address: [address] [place], [place] [address] Result Comment: Carb oxyhemoglobin Reference Range for Smokers: 2.0-8.0% Performed By: #### A LLBG ####[facility] LABCLIA [id number] [place] [address] [place] CO2 (Bld) [Partial pressure] 30 mm Hg Low 36-46 [facility] Comment on above: Order Comment: Speci men Type: ARTERIAL BLOOD SPECIMENOrdering Facility: [facility] Address: [address] Performed By: #### A LLBG ####[facility] LABCLIA [id number] [place] [address] [place] CO2 [Moles/Vol] 23 mmol/L Normal 22-28 [facility] Comment on above: Order Comment: Speci men Type: ARTERIAL BLOOD SPECIMENOrdering Facility: [facility] Address: [address] [place], [place] [address] Performed By: #### A LLBG ####[facility] LABCLIA [id number] [place] [address] [place] Glucose [Mass/Vol] 126 mg/dL High 60-105 [facility] Comment on above: Order Comment: Speci men Type: ARTERIAL BLOOD SPECIMENOrdering Facility: [facility] Address: [address] [place], [place] [address] Performed By: #### A LLBG ####[facility] LABCLIA [id number] [place] [address] [place] HCO3 (Bld) [Moles/Vol] 23 mmol/L Normal 22-26 [facility] Comment on above: Order Comment: Speci men Type: ARTERIAL BLOOD SPECIMENOrdering Facility: [facility] Address: [address] [place], [place] [address] Performed By: #### A LLBG ####[facility] LABCLIA [id number] [place] [address] [place] Hematocrit (Bld) [Volume fraction] 33.5 % Low 39.0-51.0 [facility] Comment on above: Order Comment: Speci men Type: ARTERIAL BLOOD SPECIMENOrdering Facility: [facility] Address: [address] [place], [place] [address] Performed By: #### A LLBG ####[facility] LABIA [id number] [place] [address] [place] Hemoglobin (Bld) [Mass/Vol] 10.9 g/dL Low 13.0-17.0 [facility] Comment on above: Order Comment: Speci men Type: ARTERIAL BLOOD SPECIMENOrdering Facility: [facility] Address: [address] [place], [place] [address] Performed By: #### A LLBG ####[facility] LABIA [id number] [place] [address] [place] Lactate [Moles/Vol] 1.1 mmol/L Normal 0.5-2.2 [facility] Comment on above: Order Comment: Speci men Type: ARTERIAL BLOOD SPECIMENOrdering Facility: [facility] Address: [address] [place], [place] [address] Performed By: #### A LLBG ####[facility] LABIA [id number] [place] [address] [place] Methemoglobin (Bld) [Mass fraction] 0.7 % Normal 0.0-1.5 [facility] Comment on above: Order Comment: Speci men Type: ARTERIAL BLOOD SPECIMENOrdering Facility: [facility] Address: [address] [place], [place] [address] Performed By: #### A LLBG ####[facility] LABIA [id number] [place] [address] [place] O2 THERAPY RA=Room Air Normal [facility] Comment on above: Order Comment: Speci men Type: ARTERIAL BLOOD SPECIMENOrdering Facility: [facility] Address: [address] [place] [address] Performed By: #### A LLBG ####[facility] [id number] [place] [address] [place] Oxygen (Bld) [Partial pressure] 134 mm Hg High 85-95 [facility] Comment on above: Order Comment: Speci men Type: ARTERIAL BLOOD SPECIMENOrdering Facility: [facility] Address: [address] [place] [address] Performed By: #### A LLBG ####[facility] LABCLIA [id number] [place] [address] [place] OXYGEN SATURATION, ARTERIAL 100 % High 95-98 [facility] Comment on above: Order Comment: Speci men Type: ARTERIAL BLOOD SPECIMENOrdering Facility: [facility] Address: [address] [place] [address] Performed By: #### A LLBG ####[facility] LABCLIA [id number] [place] [address] [place] Oxyhemoglobin (BldA) [Mass fraction] 97 % Normal 95-98 [facility] Comment on above: Order Comment: Speci men Type: ARTERIAL BLOOD SPECIMENOrdering Facility: [facility] Address: [address] [place], [place] [address] Performed By: #### A LLBG ####[facility] LABCLIA [id number] [place] [address] [place] pH (Bld) 7.49 [pH] High 7.35-7.45 [facility] Comment on above: Order Comment: Speci men Type: ARTERIAL BLOOD SPECIMENOrdering Facility: [facility] Address: [address] [place] [address] Performed By: #### A LLBG ####[facility] LABCLIA [id number] [place] [address] [place] Potassium [Moles/Vol] 4.2 mmol/L Normal 3.5-5.0 [facility] Comment on above: Order Comment: Speci men Type: ARTERIAL BLOOD SPECIMENOrdering Facility: [facility] Address: [address] [place] [address] Performed By: #### A LLBG ####[facility] LABCLIA [id number] [place] [address] [place] Sodium [Moles/Vol] 135 mmol/L Low 136-144 [facility] Comment on above: Order Comment: Speci men Type: ARTERIAL BLOOD SPECIMENOrdering Facility: [facility] Address: [address] [place] [address] Performed By: #### A LLBG ####[facility] LABCLIA [id number] [place] [address] [place] BASE DEFICIT, ARTERIAL -1 mmol/L Normal -2-0 [facility] Comment on above: Order Comment: Speci men Type: ARTERIAL BLOOD SPECIMENOrdering Facility: [facility] Address: [address] [place] [address] Performed By: #### A LLBG ####[facility] LABCLIA [id number] [address] [place] Body temperature 98.6 [degF] Normal [facility] Comment on above: Order Comment: Speci men Type: ARTERIAL BLOOD SPECIMENOrdering Facility: [facility] Address: [address] [place], [place] [address] Performed By: #### A LLBG ####[facility] LABCLIA [id number] [place] [address] [place] CALCIUM IONIZED, PH CORRECTED 1.21 mmol/L Normal 1.08-1.30 [facility] Comment on above: Order Comment: Speci men Type: ARTERIAL BLOOD SPECIMENOrdering Facility: [facility] Address: [address] [place] [address] Performed By: #### A LLBG ####[facility] LABIA [id number] [place] [address] [place] Calcium.ionized (Bld) [Mass/Vol] 1.21 mmol/L Normal 1.08-1.30 [facility] Comment on above: Order Comment: Speci men Type: ARTERIAL BLOOD SPECIMENOrdering Facility: [facility] Address: [address] Performed By: #### A LLBG ####[facility] LABCLIA [id number] [place] [address] [place] Carboxyhemoglobin (BldA) [Mass fraction] 1.4 % Normal 0.0-2.0 [facility] Comment on above: Order Comment: Speci men Type: ARTERIAL BLOOD SPECIMENOrdering Facility: [facility] Address: [address] [place] [address] Result Comment: Carb oxyhemoglobin Reference Range for Smokers: 2.0-8.0% Performed By: #### A LLBG ####[facility] LABCLIA [id number] [place] [address] [place] CO2 (Bld) [Partial pressure] 37 mm Hg Normal 36-46 [facility] Comment on above: Order Comment: Speci men Type: ARTERIAL BLOOD SPECIMENOrdering Facility: [facility] Address: [address] [place], [place] [address] Performed By: #### A LLBG ####[facility] LABCLIA [id number] [place] [address] [place] CO2 [Moles/Vol] 24 mmol/L Normal 22-28 [facility] Comment on above: Order Comment: Speci men Type: ARTERIAL BLOOD SPECIMENOrdering Facility: [facility] Address: [address] [place] [address] Performed By: #### A LLBG ####[facility] LABCLIA [id number] [place] [address] [place] Glucose [Mass/Vol] 128 mg/dL High 60-105 [facility] Comment on above: Order Comment: Speci men Type: ARTERIAL BLOOD SPECIMENOrdering Facility: [facility] Address: [address] [place] [address] Performed By: #### A LLBG ####[facility] LABCLIA [id number] [place] [address] [place] HCO3 (Bld) [Moles/Vol] 23 mmol/L Normal 22-26 [facility] Comment on above: Order Comment: Speci men Type: ARTERIAL BLOOD SPECIMENOrdering Facility: [facility] Address: [address] [place] [address] Performed By: #### A LLBG ####[facility] LABIA [id number] [place] [address] [place] Hematocrit (Bld) [Volume fraction] 35.3 % Low 39.0-51.0 [facility] Comment on above: Order Comment: Speci men Type: ARTERIAL BLOOD SPECIMENOrdering Facility: [facility] Address: [address] [place] [address] Performed By: #### A LLBG ####[facility] LABIA [id number] [address] [place] Hemoglobin (Bld) [Mass/Vol] 11.5 g/dL Low 13.0-17.0 [facility] Comment on above: Order Comment: Speci men Type: ARTERIAL BLOOD SPECIMENOrdering Facility: [facility] Address: [address] [place] [address] Performed By: #### A LLBG ####[facility] LABIA [id number] [place] [address] [place] Lactate [Moles/Vol] 0.9 mmol/L Normal 0.5-2.2 [facility] Comment on above: Order Comment: Speci men Type: ARTERIAL BLOOD SPECIMENOrdering Facility: [facility] Address: [address] [place], [place] [address] Performed By: #### A LLBG ####[facility] LABIA [id number] [place] [id number] [address] [place] Methemoglobin (Bld) [Mass fraction] 0.7 % Normal 0.0-1.5 [facility] Comment on above: Order Comment: Speci men Type: ARTERIAL BLOOD SPECIMENOrdering Facility: [facility] Address: [address] Performed By: #### A LLBG ####[facility] LABCLIA [id number] [place] [address] [place] O2 THERAPY RA=Room Air Normal [facility] Comment on above: Order Comment: Speci men Type: ARTERIAL BLOOD SPECIMENOrdering Facility: [facility] Address: [address] [place], [place] [address] Performed By: #### A LLBG ####[facility] LABCLIA [id number] [place] [address] [place] Oxygen (Bld) [Partial pressure] 115 mm Hg High 85-95 [facility] Comment on above: Order Comment: Speci men Type: ARTERIAL BLOOD SPECIMENOrdering Facility: [facility] Address: [address] [place] [address] Performed By: #### A LLBG ####[facility] LABCLIA [id number] [address] [place] OXYGEN SATURATION, ARTERIAL 99 % High 95-98 [facility] Comment on above: Order Comment: Speci men Type: ARTERIAL BLOOD SPECIMENOrdering Facility: [facility] Address: [address] [place] [address] Performed By: #### A LLBG ####[facility] LABCLIA [id number] [place] [address] [place] Oxyhemoglobin (BldA) [Mass fraction] 97 % Normal 95-98 [facility] Comment on above: Order Comment: Speci men Type: ARTERIAL BLOOD SPECIMENOrdering Facility: [facility] Address: [address] [place] [address] Performed By: #### A LLBG ####[facility] LABCLIA [id number] [place] [address] [place] pH (Bld) 7.41 [pH] Normal 7.35-7.45 [facility] Comment on above: Order Comment: Speci men Type: ARTERIAL BLOOD SPECIMENOrdering Facility: [facility] Address: [address] [place], [place] [address] Performed By: #### A LLBG ####[facility] LABIA [id number] [place] [address] [place] Potassium [Moles/Vol] 4.2 mmol/L Normal 3.5-5.0 [facility] Comment on above: Order Comment: Speci men Type: ARTERIAL BLOOD SPECIMENOrdering Facility: [facility] Address: [address] [place], [place] [address] Performed By: #### A LLBG ####[facility] LABIA [id number] [place] [address] [place] Sodium [Moles/Vol] 136 mmol/L Normal 136-144 [facility] Comment on above: Order Comment: Speci men Type: ARTERIAL BLOOD SPECIMENOrdering Facility: [facility] Address: [address] [place] [address] Performed By: #### A LLBG ####[facility] LABIA [id number] [place] [address] [place] Base excess Calc (Bld) [Moles/Vol] 0 mmol/L Normal 0-2 [facility] Comment on above: Order Comment: Speci men Type: ARTERIAL BLOOD SPECIMENOrdering Facility: [facility] Address: [address] [place] [address] Performed By: #### A LLBG ####[facility] LABIA [id number] [place] [id number] [place] Body temperature 98.6 [degF] Normal [facility] Comment on above: Order Comment: Speci men Type: ARTERIAL BLOOD SPECIMENOrdering Facility: [facility] Address: [address] [place], [place] [address] Performed By: #### A LLBG ####[facility] LABCLIA [id number] [place] [address] [place] CALCIUM IONIZED, PH CORRECTED 1.24 mmol/L Normal 1.08-1.30 [facility] Comment on above: Order Comment: Speci men Type: ARTERIAL BLOOD SPECIMENOrdering Facility: [facility] Address: [address] [place] [address] Performed By: #### A LLBG ####[facility] LABIA [id number] [place] [address] [place] Calcium.ionized (Bld) [Mass/Vol] 1.23 mmol/L Normal 1.08-1.30 [facility] Comment on above: Order Comment: Speci men Type: ARTERIAL BLOOD SPECIMENOrdering Facility: [facility] Address: [address] [place] [address] Performed By: #### A LLBG ####[facility] LABIA [id number] [address] [place] Carboxyhemoglobin (BldA) [Mass fraction] 1.8 % Normal 0.0-2.0 [facility] Comment on above: Order Comment: Speci men Type: ARTERIAL BLOOD SPECIMENOrdering Facility: [facility] Address: [address] [place], [place] [address] Result Comment: Carb oxyhemoglobin Reference Range for Smokers: 2.0-8.0% Performed By: #### A LLBG ####[facility] LABIA [id number] [place] [address] [place] CO2 (Bld) [Partial pressure] 37 mm Hg Normal 36-46 [facility] Comment on above: Order Comment: Speci men Type: ARTERIAL BLOOD SPECIMENOrdering Facility: [facility] Address: [address] [place], [place] [address] Performed By: #### A LLBG ####[facility] LABCLIA [id number] [place] [address] [place] CO2 [Moles/Vol] 25 mmol/L Normal 22-28 [facility] Comment on above: Order Comment: Speci men Type: ARTERIAL BLOOD SPECIMENOrdering Facility: [facility] Address: [address] [place], [place] [address] Performed By: #### A LLBG ####[facility] LABCLIA [id number] [place] [address] [place] Glucose [Mass/Vol] 106 mg/dL High 60-105 [facility] Comment on above: Order Comment: Speci men Type: ARTERIAL BLOOD SPECIMENOrdering Facility: [facility] Address: [address] [place], [place] [address] Performed By: #### A LLBG ####[facility] LABCLIA [id number] [place] [address] [place] HCO3 (Bld) [Moles/Vol] 24 mmol/L Normal 22-26 [facility] Comment on above: Order Comment: Speci men Type: ARTERIAL BLOOD SPECIMENOrdering Facility: [facility] Address: [address] [place], [place] [address] Performed By: #### A LLBG ####[facility] LABCLIA [id number] [place] [address] [place] Hematocrit (Bld) [Volume fraction] 35.1 % Low 39.0-51.0 [facility] Comment on above: Order Comment: Speci men Type: ARTERIAL BLOOD SPECIMENOrdering Facility: [facility] Address: [address] [place], [place] [address] Performed By: #### A LLBG ####[facility] LABCLIA [id number] [place] [address] [place] Hemoglobin (Bld) [Mass/Vol] 11.4 g/dL Low 13.0-17.0 [facility] Comment on above: Order Comment: Speci men Type: ARTERIAL BLOOD SPECIMENOrdering Facility: [facility] Address: [address] [place], [place] [address] Performed By: #### A LLBG ####[facility] LABIA [id number] [place] [address] [place] Lactate [Moles/Vol] 0.8 mmol/L Normal 0.5-2.2 [facility] Comment on above: Order Comment: Speci men Type: ARTERIAL BLOOD SPECIMENOrdering Facility: [facility] Address: [address] [place], [place] [address] Performed By: #### A LLBG ####[facility] LABIA [id number] [place] [address] [place] Methemoglobin (Bld) [Mass fraction] 0.2 % Normal 0.0-1.5 [facility] Comment on above: Order Comment: Speci men Type: ARTERIAL BLOOD SPECIMENOrdering Facility: [facility] Address: [address] [place], [place] [address] Performed By: #### A LLBG ####[facility] LABIA [id number] [place] [address] [place] O2 THERAPY RA=Room Air Normal [facility] Comment on above: Order Comment: Speci men Type: ARTERIAL BLOOD SPECIMENOrdering Facility: [facility] Address: [address] [place] [address] Performed By: #### A LLBG ####[facility] LABIA [id number] [place] [address] [place] Oxygen (Bld) [Partial pressure] 101 mm Hg High 85-95 [facility] Comment on above: Order Comment: Speci men Type: ARTERIAL BLOOD SPECIMENOrdering Facility: [facility] Address: [address] [place] [address] Performed By: #### A LLBG ####[facility] LABCLIA [id number] [place] [address] [place] OXYGEN SATURATION, ARTERIAL 99 % High 95-98 [facility] Comment on above: Order Comment: Speci men Type: ARTERIAL BLOOD SPECIMENOrdering Facility: [facility] Address: [address] [place], [place] [address] Performed By: #### A LLBG ####[facility] LABCLIA [id number] [place] [address] [place] Oxyhemoglobin (BldA) [Mass fraction] 97 % Normal 95-98 [facility] Comment on above: Order Comment: Speci men Type: ARTERIAL BLOOD SPECIMENOrdering Facility: [facility] Address: [address] [place] [address] Performed By: #### A LLBG ####[facility] LABCLIA [id number] [place] [address] [place] pH (Bld) 7.43 [pH] Normal 7.35-7.45 [facility] Comment on above: Order Comment: Speci men Type: ARTERIAL BLOOD SPECIMENOrdering Facility: [facility] Address: [address] [place] [phone] Performed By: #### A LLBG ####[facility] LABCLIA [id number] [place] [address] [place] Potassium [Moles/Vol] 4.4 mmol/L Normal 3.5-5.0 [facility] Comment on above: Order Comment: Speci men Type: ARTERIAL BLOOD SPECIMENOrdering Facility: [facility] Address: [address] [place] [phone] Performed By: #### A LLBG ####[facility] LABCLIA [id number] [address] [place] Sodium [Moles/Vol] 134 mmol/L Low 136-144 [facility] Comment on above: Order Comment: Speci men Type: ARTERIAL BLOOD SPECIMENOrdering Facility: [facility] Address: [address] [place], [place] [address] Performed By: #### A LLBG ####[facility] LABCLIA [id number] [place] [address] [place] Base excess Calc (Bld) [Moles/Vol] 0 mmol/L Normal 0-2 [facility] Comment on above: Order Comment: Speci men Type: ARTERIAL BLOOD SPECIMENOrdering Facility: [facility] Address: [address] [place], [place] [address] Performed By: #### A LLBG ####[facility] LABCLIA [id number] [place] [address] [place] Body temperature 98.6 [degF] Normal [facility] Comment on above: Order Comment: Speci men Type: ARTERIAL BLOOD SPECIMENOrdering Facility: [facility] Address: [address] [place], [place] [address] Performed By: #### A LLBG ####[facility] LABCLIA [id number] [place] [address] [place] Order Comment: Speci men Type: VENOUS BLOOD SPECIMENOrdering Facility: [facility] Address: [address] [place], [place] [address] Performed By: #### 2 4344-4 ####[facility] LABCLIA [id number] [place] [address] [place] CALCIUM IONIZED, PH CORRECTED 1.25 mmol/L Normal 1.08-1.30 [facility] Comment on above: Order Comment: Speci men Type: ARTERIAL BLOOD SPECIMENOrdering Facility: [facility] Address: [address] [place], [place] [address] Performed By: #### A LLBG ####[facility] LABCLIA [id number] [place] [address] [place] Calcium.ionized (Bld) [Mass/Vol] 1.24 mmol/L Normal 1.08-1.30 [facility] Comment on above: Order Comment: Speci men Type: ARTERIAL BLOOD SPECIMENOrdering Facility: [facility] Address: [address] [place] [address] Performed By: #### A LLBG ####[facility] LABCLIA [id number] [place] [address] [place] Order Comment: Speci men Type: VENOUS BLOOD SPECIMENOrdering Facility: [facility] Address: [address] [place] [address] Performed By: #### 2 4344-4 ####[facility] LABIA [id number] [address] [place] Carboxyhemoglobin (BldA) [Mass fraction] 1.6 % Normal 0.0-2.0 [facility] Comment on above: Order Comment: Speci men Type: ARTERIAL BLOOD SPECIMENOrdering Facility: [facility] Address: [address] [place], [place] [address] Result Comment: Carb oxyhemoglobin Reference Range for Smokers: 2.0-8.0% Performed By: #### A LLBG ####[facility] LABIA [id number] [place] [address] [place] CO2 (Bld) [Partial pressure] 38 mm Hg Normal 36-46 [facility] Comment on above: Order Comment: Speci men Type: ARTERIAL BLOOD SPECIMENOrdering Facility: [facility] Address: [address] [place] [address] Performed By: #### A LLBG ####[facility] LABCLIA [id number] [place] [address] [place] CO2 [Moles/Vol] 25 mmol/L Normal 22-28 [facility] Comment on above: Order Comment: Speci men Type: ARTERIAL BLOOD SPECIMENOrdering Facility: [facility] Address: [address] [place], [place] [address] Performed By: #### A LLBG ####[facility] LABCLIA [id number] [place] [address] [place] Glucose [Mass/Vol] 114 mg/dL High 60-105 [facility] Comment on above: Order Comment: Speci men Type: ARTERIAL BLOOD SPECIMENOrdering Facility: [facility] Address: [address] [place], [place] [address] Performed By: #### A LLBG ####[facility] LABCLIA [id number] [place] [address] [place] HCO3 (Bld) [Moles/Vol] 24 mmol/L Normal 22-26 [facility] Comment on above: Order Comment: Speci men Type: ARTERIAL BLOOD SPECIMENOrdering Facility: [facility] Address: [address] [place], [place] [address] Performed By: #### A LLBG ####[facility] LABCLIA [id number] [place] [address] [place] Hematocrit (Bld) [Volume fraction] 34.4 % Low 39.0-51.0 [facility] Comment on above: Order Comment: Speci men Type: ARTERIAL BLOOD SPECIMENOrdering Facility: [facility] Address: [address] [place], [place] [address] Performed By: #### A LLBG ####[facility] LABCLIA [id number] [place] [address] [place] Hemoglobin (Bld) [Mass/Vol] 11.1 g/dL Low 13.0-17.0 [facility] Comment on above: Order Comment: Speci men Type: ARTERIAL BLOOD SPECIMENOrdering Facility: [facility] Address: [address] [place], [place] [address] Performed By: #### A LLBG ####[facility] LABCLIA [id number] [place] [address] [place] Lactate [Moles/Vol] 1.1 mmol/L Normal 0.5-2.2 [facility] Comment on above: Order Comment: Speci men Type: ARTERIAL BLOOD SPECIMENOrdering Facility: [facility] Address: [address] [place] [address] Performed By: #### A LLBG ####[facility] LABCLIA [id number] [place] [address] [place] Methemoglobin (Bld) [Mass fraction] 0.7 % Normal 0.0-1.5 [facility] Comment on above: Order Comment: Speci men Type: ARTERIAL BLOOD SPECIMENOrdering Facility: [facility] Address: [address] [place] [address] Performed By: #### A LLBG ####[facility] LABIA [id number] [place] [address] [place] O2 THERAPY RA=Room Air Normal [facility] Comment on above: Order Comment: Speci men Type: ARTERIAL BLOOD SPECIMENOrdering Facility: [facility] Address: [address] [place] [phone] Performed By: #### A LLBG ####[facility] LABIA [id number] [place] [address] [place] Order Comment: Speci men Type: VENOUS BLOOD SPECIMENOrdering Facility: [facility] Address: [address] [place] [phone] Performed By: #### 2 4344-4 ####[facility] LABIA [id number] [place] [address] [place] Oxygen (Bld) [Partial pressure] 97 mm Hg High 85-95 [facility] Comment on above: Order Comment: Speci men Type: ARTERIAL BLOOD SPECIMENOrdering Facility: [facility] Address: [address] [place] [phone] Performed By: #### A LLBG ####[facility] LABCLIA [id number] [place] [address] [place] OXYGEN SATURATION, ARTERIAL 97 % Normal 95-98 [facility] Comment on above: Order Comment: Speci men Type: ARTERIAL BLOOD SPECIMENOrdering Facility: [facility] Address: [address] [place], [place] [address] Performed By: #### A LLBG ####[facility] LABCLIA [id number] [place] [address] [place] Oxyhemoglobin (BldA) [Mass fraction] 95 % Normal 95-98 [facility] Comment on above: Order Comment: Speci men Type: ARTERIAL BLOOD SPECIMENOrdering Facility: [facility] Address: [address] [place] [address] Performed By: #### A LLBG ####[facility] LABCLIA [id number] [place] [address] [place] pH (Bld) 7.42 [pH] Normal 7.35-7.45 [facility] Comment on above: Order Comment: Speci men Type: ARTERIAL BLOOD SPECIMENOrdering Facility: [facility] Address: [address] [place] [phone] Performed By: #### A LLBG ####[facility] LABCLIA [id number] [place] [address] [place] Potassium [Moles/Vol] 4.5 mmol/L Normal 3.5-5.0 [facility] Comment on above: Order Comment: Speci men Type: ARTERIAL BLOOD SPECIMENOrdering Facility: [facility] Address: [address] [place], [place] [phone] Performed By: #### A LLBG ####[facility] LABCLIA [id number] [place] [id number] [facility] Order Comment: Speci men Type: VENOUS BLOOD SPECIMENOrdering Facility: [facility] Address: [address] [place] [address] Performed By: #### 2 4344-4 ####[facility] LABCLIA [id number] [address] [place] Sodium [Moles/Vol] 134 mmol/L Low 136-144 [facility] Comment on above: Order Comment: Speci men Type: ARTERIAL BLOOD SPECIMENOrdering Facility: [facility] Address: [address] [place] [address] Performed By: #### A LLBG ####[facility] LABCLIA [id number] [address] Order Comment: Speci men Type: VENOUS BLOOD SPECIMENOrdering Facility: [facility] Address: [address] [place] [address] Performed By: #### 2 4344-4 ####[facility] LABCLIA [id number] [address] [place] Bacteria Bld Culton 08-16-19 Bacteria identified Cx Nom (Bld) CULTURE, BLOOD: No growth 5 days Normal [facility] Comment on above: Performed By: #### 6 00-7 ####[facility] LABCLIA [id number] [address] OF [facility] Bacteria identified Cx Nom (Bld) CULTURE, BLOOD: No growth 5 days Normal [facility] Comment on above: Performed By: #### 6 00-7 ####[facility] LABCLIA [id number] [address] [place] CBC panel Auto (Bld)on 08-15 Erythrocyte distribution width (RBC) [Ratio] 22.2 % High 11.5-15.0 [facility] Comment on above: Order Comment: Speci men Type: BLOOD SPECIMENOrdering Facility: [facility] Address: [address] [place], [place] [address] Performed By: #### 5 8410-2 ####[facility] [id number] [address] [place] Hematocrit (Bld) [Volume fraction] 34.2 % Low 39.0-51.0 [facility] Comment on above: Order Comment: Speci men Type: BLOOD SPECIMENOrdering Facility: [facility] Address: [address] [place], [place] [address] Performed By: #### 5 8410-2 ####[facility] [id number] [place] [address] [place] Hemoglobin (Bld) [Mass/Vol] 10.6 g/dL Low 13.0-17.0 [facility] Comment on above: Order Comment: Speci men Type: BLOOD SPECIMENOrdering Facility: [facility] Address: [address] [place], [place] [address] Performed By: #### 5 8410-2 ####[facility] [id number] [address] [place] MCH (RBC) [Entitic mass] 24.9 pg Low 26.0-34.0 [facility] Comment on above: Order Comment: Speci men Type: BLOOD SPECIMENOrdering Facility: [facility] Address: [address] [place], [place] [address] Performed By: #### 5 8410-2 ####[facility] [id number] [place] [address] [place] MCHC (RBC) [Mass/Vol] 31.0 g/dL Normal 30.5-36.0 [facility] Comment on above: Order Comment: Speci men Type: BLOOD SPECIMENOrdering Facility: [facility] Address: [address] [place], [place] [address] Performed By: #### 5 8410-2 ####[facility] LABIA [id number] [address] STATES [facility] MCV (RBC) [Entitic vol] 80.5 fL Normal 80.0-100.0 [facility] Comment on above: Order Comment: Speci men Type: BLOOD SPECIMENOrdering Facility: [facility] Address: [address] [place] [phone] Performed By: #### 5 8410-2 ####[facility] [id number] [place] [address] [place] Nucleated RBC (Bld) [#/Vol] 10*3/uL Normal <0.01 [facility] Comment on above: Order Comment: Speci men Type: BLOOD SPECIMENOrdering Facility: [facility] Address: [address] [place] [phone] Performed By: #### 5 8410-2 ####[facility] [id number] [address] [place] Platelet mean volume (Bld) [Entitic vol] 10.1 fL Normal 9.0-12.7 [facility] Comment on above: Order Comment: Speci men Type: BLOOD SPECIMENOrdering Facility: [facility] Address: [address] [place] [address] Performed By: #### 5 8410-2 ####[facility] [id number] [place] [address] [place] Platelets (Bld) [#/Vol] 354 10*3/uL Normal 150-400 [facility] Comment on above: Order Comment: Speci men Type: BLOOD SPECIMENOrdering Facility: [facility] Address: [address] [place] [address] Performed By: #### 5 8410-2 ####[facility] [id number] [address] [place] RBC (Bld) [#/Vol] 4.25 10*6/uL Normal 4.20-6.00 [facility] Comment on above: Order Comment: Speci men Type: BLOOD SPECIMENOrdering Facility: [facility] Address: [address] [place], [place] [address] Performed By: #### 5 8410-2 ####[facility] LABIA [id number] [place] [address] [place] [facility] WBC (Bld) [#/Vol] 6.99 10*3/uL Normal 3.70-11.00 [facility] Comment on above: Order Comment: Speci men Type: BLOOD SPECIMENOrdering Facility: [facility] Address: [address] [place], [place] [address] Performed By: #### 5 8410-2 ####[facility] LABIA [id number] [address] OF [facility] CONSULT PROGon 08-15-2021 CONSULT PROG Normal [facility] Comprehensive metabolic 2000 panelon 08-15-2021 Albumin [Mass/Vol] 3.1 g/dL Low 3.9-4.9 [facility] Comment on above: Order Comment: Speci men Type: BLOOD SPECIMENOrdering Facility: [facility] Address: [address] [place], [place] [address] Performed By: #### 2 4323-8 ####[facility] LABIA [id number] [place] [address] [place] ALP [Catalytic activity/Vol] 148 U/L High 38-113 [facility] Comment on above: Order Comment: Speci men Type: BLOOD SPECIMENOrdering Facility: [facility] Address: [address] [place], [place] [address] Performed By: #### 2 4323-8 ####[facility] LABIA [id number] [place] [address] [place] ALT [Catalytic activity/Vol] 62 U/L High 10-54 [facility] Comment on above: Order Comment: Speci men Type: BLOOD SPECIMENOrdering Facility: [facility] Address: [address] [place] [address] Result Comment: Resu lts may be falsely increased due to interference from hemolysis. Suggest reorder as clinically indicated. Performed By: #### 2 4323-8 ####[facility] LABCLIA [id number] [address] STATES OF [facility] Anion gap [Moles/Vol] 11 mmol/L Normal 9-18 [facility] Comment on above: Order Comment: Speci men Type: BLOOD SPECIMENOrdering Facility: [facility] Address: [address] [place] [address] Performed By: #### 2 4323-8 ####[facility] LABCLIA [id number] [address] AST [Catalytic activity/Vol] 71 U/L High 14-40 [facility] Comment on above: Order Comment: Speci men Type: BLOOD SPECIMENOrdering Facility: [facility] Address: [address] [place] [address] Result Comment: Resu lts may be falsely increased due to interference from hemolysis. Suggest reorder as clinically indicated. Performed By: #### 2 4323-8 ####[facility] LABCLIA [id number] [address] [place] Bilirubin [Mass/Vol] 1.8 mg/dL High 0.2-1.3 [facility] Comment on above: Order Comment: Speci men Type: BLOOD SPECIMENOrdering Facility: [facility] Address: [address] [place] [address] Performed By: #### 2 4323-8 ####[facility] LABCLIA [id number] [place] [address] [place] Calcium [Mass/Vol] 9.0 mg/dL Normal 8.5-10.2 [facility] Comment on above: Order Comment: Speci men Type: BLOOD SPECIMENOrdering Facility: [facility] Address: [address] [place], [place] [address] Performed By: #### 2 4323-8 ####[facility] LABCLIA [id number] [place] [address] [place] Chloride [Moles/Vol] 98 mmol/L Normal 97-105 [facility] Comment on above: Order Comment: Speci men Type: BLOOD SPECIMENOrdering Facility: [facility] Address: [address] [place] [address] Performed By: #### 2 4323-8 ####[facility] LABCLIA [id number] [place] [address] [place] CO2 [Moles/Vol] 21 mmol/L Low 22-30 [facility] Comment on above: Order Comment: Speci men Type: BLOOD SPECIMENOrdering Facility: [facility] Address: [address] [place], [place] [address] Performed By: #### 2 4323-8 ####[facility] LABCLIA [id number] [place] [address] [place] Creatinine [Mass/Vol] 0.99 mg/dL Normal 0.73-1.22 [facility] Comment on above: Order Comment: Speci men Type: BLOOD SPECIMENOrdering Facility: [facility] Address: [address] [place], [place] [id number] Performed By: #### 2 4323-8 ####[facility] LABCLIA [id number] [place] [address] [place] ESTIMATED GLOMERULAR FILTRATION RATE 78 mL/min/1.73m??? Normal >=60 [facility] Comment on above: Order Comment: Speci men Type: BLOOD SPECIMENOrdering Facility: [facility] Address: [address] [place] [place] [address] Result Comment: Fabiano mated Glomerular Filtration Rate (eGFR) is calculated using the 2020 CKD-EPI creatinine equation. This equation utilizes serum creatinine, sex, and age as parameters. The creatinine assay has traceable calibration to isotope dilution-mass spectrometry. Refer to KDIGO guidelines for clinical interpretation. In patients with unstable renal function, e.g. those with acute kidney injury, the eGFR may not accurately reflect actual GFR. Performed By: #### 2 4323-8 ####[facility] LABIA [id number] [place] [address] [place] Glucose [Mass/Vol] 107 mg/dL High 74-99 [facility] Comment on above: Order Comment: Specgeorgette cadena Type: BLOOD SPECIMENOrdering Facility: [facility] Address: [address] [place] [address] Result Comment: The [place] Diabetes Association (ADA) provides guidance for cutoff values for fasting glucose and random glucose. The ADA defines fasting as no caloric intake for at least 8 hours. Fasting plasma glucose results between 100 to 125 mg/dL indicate increased risk for diabetes (prediabetes).Fasting plasma glucose results greater than or equal to 126 mg/dL meet the criteria for diagnosis of diabetes. In the absence of unequivocal hyperglycemia, results should be confirmed by repeat testing. In a patient with classic symptoms of hyperglycemia or hyperglycemic crisis, random plasma glucose results greater than or equal to 200 mg/dL meet the criteria for diagnosis of diabetes.Reference: Standards of Medical Care in Diabetes 2016, [place] [employer]. Diabetes Care. 2016.39(Suppl 1). Performed By: #### 2 4323-8 ####[facility] LABIA [id number] [place] [address] [place] Potassium [Moles/Vol] 5.0 mmol/L Normal 3.7-5.1 [facility] Comment on above: Order Comment: An cadena Type: BLOOD SPECIMENOrdering Facility: [facility] Address: [address] [place] [address] Performed By: #### 2 4323-8 ####[facility] LABIA [id number] [place] [address] [place] Protein [Mass/Vol] 6.4 g/dL Normal 6.3-8.0 [facility] Comment on above: Order Comment: Speci men Type: BLOOD SPECIMENOrdering Facility: [facility] Address: [address] [place] [address] Performed By: #### 2 4323-8 ####[facility] LABIA [id number] [place] [address] [place] Sodium [Moles/Vol] 130 mmol/L Low 136-144 [facility] Comment on above: Order Comment: Speci men Type: BLOOD SPECIMENOrdering Facility: [facility] Address: [address] [place] [address] Performed By: #### 2 4323-8 ####[facility] LABIA [id number] [place] [address] [place] Urea nitrogen [Mass/Vol] 53 mg/dL High 9-24 [facility] Comment on above: Order Comment: Speci men Type: BLOOD SPECIMENOrdering Facility: [facility] Address: [address] [place] [address] Performed By: #### 2 4323-8 ####[facility] LABIA [id number] [place] [address] [place] Gas and Carbon monoxide pane l (BldV)on 08-15-2021 Base excess Calc (BldV) [Moles/Vol] 1 mmol/L Normal 0-2 [facility] Comment on above: Order Comment: Speci men Type: VENOUS BLOOD SPECIMENOrdering Facility: [facility] Address: [address] [place], [place] [address] Performed By: #### 2 4344-4 ####[facility] LABIA [id number] [place] [address] [place] CALCIUM IONIZED, PH CORRECTED 1.22 mmol/L Normal 1.08-1.30 [facility] Comment on above: Order Comment: Speci men Type: VENOUS BLOOD SPECIMENOrdering Facility: [facility] Address: [address] [place] [address] Performed By: #### 2 4344-4 ####[facility] LABCLIA [id number] [address] [place] Carboxyhemoglobin (BldV) [Mass fraction] 1.4 % Normal 0.0-2.0 [facility] Comment on above: Order Comment: Speci men Type: VENOUS BLOOD SPECIMENOrdering Facility: [facility] Address: [address] [place] [address] Result Comment: Carb oxyhemoglobin Reference Range for Smokers: 2.0-8.0% Performed By: #### 2 4344-4 ####[facility] LABIA [id number] [place] [address] [place] CO2 (BldV) [Partial pressure] 45 mm[Hg] Normal 42-55 [facility] Comment on above: Order Comment: Speci men Type: VENOUS BLOOD SPECIMENOrdering Facility: [facility] Address: [address] [place] [address] Performed By: #### 2 4344-4 ####[facility] LABCLIA [id number] [place] [address] [place] CO2 [Moles/Vol] 27 mmol/L Normal 25-29 [facility] Comment on above: Order Comment: Speci men Type: VENOUS BLOOD SPECIMENOrdering Facility: [facility] Address: [address] [place] [address] Performed By: #### 2 4344-4 ####[facility] LABCLIA [id number] [place] [address] [place] Glucose [Mass/Vol] 109 mg/dL High 60-105 [facility] Comment on above: Order Comment: Speci men Type: VENOUS BLOOD SPECIMENOrdering Facility: [facility] Address: [address] [place], [place] [address] Performed By: #### 2 4344-4 ####[facility] LABIA [id number] [place] [address] [place] HCO3 (Bld) [Moles/Vol] 25 mmol/L Normal 24-28 [facility] Comment on above: Order Comment: Speci men Type: VENOUS BLOOD SPECIMENOrdering Facility: [facility] Address: [address] [place], [place] [address] Performed By: #### 2 4344-4 ####[facility] LABIA [id number] [place] [address] [place] Hematocrit (Bld) [Volume fraction] 33.2 % Low 39.0-51.0 [facility] Comment on above: Order Comment: Speci men Type: VENOUS BLOOD SPECIMENOrdering Facility: [facility] Address: [address] [place], [place] [address] Performed By: #### 2 4344-4 ####[facility] LABIA [id number] [place] [address] [place] Hemoglobin (Bld) [Mass/Vol] 10.8 g/dL Low 13.0-17.0 [facility] Comment on above: Order Comment: Speci men Type: VENOUS BLOOD SPECIMENOrdering Facility: [facility] Address: [address] [place], [place] [address] Performed By: #### 2 4344-4 ####[facility] LABIA [id number] [place] [address] [place] Lactate [Moles/Vol] 1.2 mmol/L Normal 0.5-2.2 [facility] Comment on above: Order Comment: Speci men Type: VENOUS BLOOD SPECIMENOrdering Facility: [facility] Address: [address] [place], [place] [address] Performed By: #### 2 4344-4 ####[facility] LABCLIA [id number] [address] [place] Methemoglobin (Bld) [Mass fraction] 0.8 % Normal 0.0-1.5 [facility] Comment on above: Order Comment: Speci men Type: VENOUS BLOOD SPECIMENOrdering Facility: [facility] Address: [address] [place] [address] Performed By: #### 2 4344-4 ####[facility] LABCLIA [id number] [place] [address] [place] Oxygen (BldV) [Partial pressure] 45 mm[Hg] Normal 35-45 [facility] Comment on above: Order Comment: Speci men Type: VENOUS BLOOD SPECIMENOrdering Facility: [facility] Address: [address] [place] [address] Performed By: #### 2 4344-4 ####[facility] LABIA [id number] [place] [address] [place] Oxygen saturation in Blood 75 % Normal 60-85 [facility] Comment on above: Order Comment: Speci men Type: VENOUS BLOOD SPECIMENOrdering Facility: [facility] Address: [address] [place] [id number] Performed By: #### 2 4344-4 ####[facility] LABCLIA [id number] [place] [address] [place] Oxyhemoglobin (BldV) [Mass fraction] 73 % Normal 60-85 [facility] Comment on above: Order Comment: Speci men Type: VENOUS BLOOD SPECIMENOrdering Facility: [facility] Address: [address] [place], [place] [address] Performed By: #### 2 4344-4 ####[facility] LABCLIA [id number] [place] [id number] [place] pH (BldV) 7.38 [pH] Normal 7.32-7.42 [facility] Comment on above: Order Comment: An cadena Type: VENOUS BLOOD SPECIMENOrdering Facility: [facility] Address: [address] [place] [address] Performed By: #### 2 4344-4 ####[facility] LABCLIA [id number] [address] OF [facility] NURSING PROGon 08-15-2021 NURSING PROG Normal [facility] PT panel Coag (PPP)on 2021 INR Coag (PPP) [Relative time] 1.8 {INR} High 0.9-1.3 [facility] Comment on above: Order Comment: An cadena Type: BLOOD SPECIMENOrdering Facility: [facility] Address: [address] [place] [address] Result Comment: Samantha min K Antagonist (VKA) Therapeutic Range: INR 2 to 3 (Target INR of 2.5)Note: For patients treated with VKA drugs, such as warfarin, the [place] [employer] 2012 Guideline recommends a therapeutic INR range of 2 to 3 (target INR of 2.5). This recommendation includes high-risk patients with antiphospholipid syndrome with previous arterial or venous thromboembolism, current-generation mechanical or bioprosthetic aortic heart valve replacement.Note: Patients with mechanical aortic valve replacement and additional risk factors for thromboembolic events (atrial fibrillation, previous thromboembolism, LV dysfunction, hypercoagulable conditions) or an older generation mechanical AVR (i.e., ball in-Cage) or any mechanical MVR should have a INR therapeutic range of 2.5 to 3.5 (target INR of 3).Gerard GH, et al. Chest 2012, 141:7S-47SNishdorene RA, et al. JACC 2017, 70: 252-289 Performed By: #### 3 4528-0 ####[facility] LABIA [id number] [address] [place] PT Coag (PPP) [Time] 18.6 s High 9.7-13.0 [facility] Comment on above: Order Comment: Speci men Type: BLOOD SPECIMENOrdering Facility: [facility] Address: [address] [place] [address] Performed By: #### 3 4528-0 ####[facility] LABIA [id number] [address] [place] Procalcitonin SerPl-mCncon 0 08-15-2021 Procalcitonin [Mass/Vol] 0.14 ng/mL High <0.09 [facility] Comment on above: Order Comment: Speci men Type: BLOOD SPECIMENOrdering Facility: [facility] Address: [address] [place] [address] Result Comment: For a guided interpretation of test results, please visit the Change in Procalcitonin Calculator, [email or web address]. Performed By: #### 3 3959-8 ####[facility] LABIA [id number] [address] [place] THERAPY NTon 08-15-2021 THERAPY NT Normal [facility] THERAPY NT Normal [facility] URINALYSIS, DIPSTICK ONLYon 08-15-2021 Bilirubin Ql (U) Negative Normal Negative [facility] Comment on above: Order Comment: Speci men Type: URINE SPECIMENOrdering Facility: [facility] Address: [address] [place], [place] [address] Performed By: #### U A ####[facility] LABIA [id number] [place] [address] [place] Clarity (Unsp spec) Slightly Cloudy Abnormal Clear [facility] Comment on above: Order Comment: Speci men Type: URINE SPECIMENOrdering Facility: [facility] Address: [address] [place], [place] [address] Performed By: #### U A ####[facility] LABIA [id number] [place] [address] [place] Color (U) Light Nargis Abnormal Yellow [facility] Comment on above: Order Comment: Speci men Type: URINE SPECIMENOrdering Facility: [facility] Address: [address] [place], [place] [address] Performed By: #### U A ####[facility] LABCLIA [id number] [address] Glucose Test strip (U) [Mass/Vol] 3+ Abnormal Negative [facility] Comment on above: Order Comment: Speci men Type: URINE SPECIMENOrdering Facility: [facility] Address: [address] [place], [place] [address] Performed By: #### U A ####[facility] LABCLIA [id number] [address] [place] Hemoglobin Ql (U) Negative Normal Negative [facility] Comment on above: Order Comment: Speci men Type: URINE SPECIMENOrdering Facility: [facility] Address: [address] [place], [place] [address] Performed By: #### U A ####[facility] LABCLIA [id number] [address] STATES [facility] Ketones Ql (U) Negative Normal Negative [facility] Comment on above: Order Comment: Speci men Type: URINE SPECIMENOrdering Facility: [facility] Address: [address] [place], [place] [address] Performed By: #### U A ####[facility] LABCLIA [id number] [address] [place] Leukocyte esterase Test strip Ql (U) Negative Normal Negative [facility] Comment on above: Order Comment: Speci men Type: URINE SPECIMENOrdering Facility: [facility] Address: [address] [place], [place] [address] Performed By: #### U A ####[facility] LABCLIA [id number] [place] [address] [place] Nitrite Ql (U) Negative Normal Negative [facility] Comment on above: Order Comment: Speci men Type: URINE SPECIMENOrdering Facility: [facility] Address: [address] [place], [place] [address] Performed By: #### U A ####[facility] LABCLIA [id number] [place] [address] [place] pH (U) 5.0 [pH] Normal 5.0-8.0 [facility] Comment on above: Order Comment: Speci men Type: URINE SPECIMENOrdering Facility: [facility] Address: [address] [place], [place] [address] Performed By: #### U A ####[facility] LABIA [id number] [address] STATES OF [facility] Protein (U) [Mass/Vol] Negative Normal Negative [facility] Comment on above: Order Comment: Speci men Type: URINE SPECIMENOrdering Facility: [facility] Address: [address] [place], [place] [address] Performed By: #### U A ####[facility] LABIA [id number] [address] Specific gravity (U) [Rel density] 1.021 Normal 1.005-1.030 [facility] Comment on above: Order Comment: Speci men Type: URINE SPECIMENOrdering Facility: [facility] Address: [address] [place], [place] [address] Performed By: #### U A ####[facility] LABIA [id number] [address] [place] Urobilinogen Ql (U) 2+ Abnormal Negative [facility] Comment on above: Order Comment: Speci men Type: URINE SPECIMENOrdering Facility: [facility] Address: [address] [place], [place] [address] Performed By: #### U A ####[facility] LABCLIA [id number] [place] [address] [place] XR CHEST 1V FRONTAL PORTon 0 08-15-2021 XR CHEST 1V FRONTAL PORT Normal [facility] CBC panel Auto (Bld)on 08-14 Erythrocyte distribution width (RBC) [Ratio] 22.5 % High 11.5-15.0 [facility] Comment on above: Order Comment: Speci men Type: BLOOD SPECIMENOrdering Facility: [facility] Address: [address] [place], [place] [address] Performed By: #### 5 8410-2 ####[facility] LABIA [id number] [place] [address] [place] Hematocrit (Bld) [Volume fraction] 37.1 % Low 39.0-51.0 [facility] Comment on above: Order Comment: Speci men Type: BLOOD SPECIMENOrdering Facility: [facility] Address: [address] [place], [place] [address] Performed By: #### 5 8410-2 ####[facility] LABCLIA [id number] [place] [address] [place] Hemoglobin (Bld) [Mass/Vol] 11.3 g/dL Low 13.0-17.0 [facility] Comment on above: Order Comment: Speci men Type: BLOOD SPECIMENOrdering Facility: [facility] Address: [address] [place], [place] [address] Performed By: #### 5 8410-2 ####[facility] LABCLIA [id number] [place] [address] [place] MCH (RBC) [Entitic mass] 24.8 pg Low 26.0-34.0 [facility] Comment on above: Order Comment: Speci men Type: BLOOD SPECIMENOrdering Facility: [facility] Address: [address] [place], [place] [address] Performed By: #### 5 8410-2 ####[facility] LABCLIA [id number] [place] [address] [place] MCHC (RBC) [Mass/Vol] 30.5 g/dL Normal 30.5-36.0 [facility] Comment on above: Order Comment: Speci men Type: BLOOD SPECIMENOrdering Facility: [facility] Address: [address] [place] [address] Performed By: #### 5 8410-2 ####[facility] LABIA [id number] [place] [address] [place] MCV (RBC) [Entitic vol] 81.5 fL Normal 80.0-100.0 [facility] Comment on above: Order Comment: Speci men Type: BLOOD SPECIMENOrdering Facility: [facility] Address: [address] [place] [address] Performed By: #### 5 8410-2 ####[facility] LABIA [id number] [place] [address] [place] Nucleated RBC (Bld) [#/Vol] 10*3/uL Normal <0.01 [facility] Comment on above: Order Comment: Speci men Type: BLOOD SPECIMENOrdering Facility: [facility] Address: [address] [place] [address] Performed By: #### 5 8410-2 ####[facility] LABIA [id number] [place] [address] [place] Platelet mean volume (Bld) [Entitic vol] 10.2 fL Normal 9.0-12.7 [facility] Comment on above: Order Comment: Speci men Type: BLOOD SPECIMENOrdering Facility: [facility] Address: [address] [place], [place] [address] Performed By: #### 5 8410-2 ####[facility] LABIA [id number] [place] [address] [place] Platelets (Bld) [#/Vol] 444 10*3/uL High 150-400 [facility] Comment on above: Order Comment: Speci men Type: BLOOD SPECIMENOrdering Facility: [facility] Address: [address] [place], [place] [address] Performed By: #### 5 8410-2 ####[facility] LABCLIA [id number] [place] [address] [place] RBC (Bld) [#/Vol] 4.55 10*6/uL Normal 4.20-6.00 [facility] Comment on above: Order Comment: Speci men Type: BLOOD SPECIMENOrdering Facility: [facility] Address: [address] [place] [address] Performed By: #### 5 8410-2 ####[facility] LABCLIA [id number] [place] [address] [place] WBC (Bld) [#/Vol] 6.47 10*3/uL Normal 3.70-11.00 [facility] Comment on above: Order Comment: Speci men Type: BLOOD SPECIMENOrdering Facility: [facility] Address: [address] [place], [place] [address] Performed By: #### 5 8410-2 ####[facility] LABCLIA [id number] [place] [address] [place] CONSULT PROGon 08-14-2021 CONSULT PROG Normal [facility] CONSULT PROG Normal [facility] Comprehensive metabolic 2000 panelon 08-14-2021 Albumin [Mass/Vol] 3.2 g/dL Low 3.9-4.9 [facility] Comment on above: Order Comment: Speci men Type: BLOOD SPECIMENOrdering Facility: [facility] Address: [address] [place], [place] [address] Performed By: #### 2 4323-8 ####[facility] LABCLIA [id number] [place] [address] [place] ALP [Catalytic activity/Vol] 151 U/L High 38-113 [facility] Comment on above: Order Comment: Speci men Type: BLOOD SPECIMENOrdering Facility: [facility] Address: [address] [place] [address] Performed By: #### 2 4323-8 ####[facility] LABCLIA [id number] [place] [address] [place] ALT [Catalytic activity/Vol] 59 U/L High 10-54 [facility] Comment on above: Order Comment: Speci men Type: BLOOD SPECIMENOrdering Facility: [facility] Address: [address] [place], [place] [address] Performed By: #### 2 4323-8 ####[facility] LABCLIA [id number] [place] [address] [place] Anion gap [Moles/Vol] 13 mmol/L Normal 9-18 [facility] Comment on above: Order Comment: Speci men Type: BLOOD SPECIMENOrdering Facility: [facility] Address: [address] [place], [place] [address] Performed By: #### 2 4323-8 ####[facility] LABCLIA [id number] [place] [address] [place] AST [Catalytic activity/Vol] 60 U/L High 14-40 [facility] Comment on above: Order Comment: Speci men Type: BLOOD SPECIMENOrdering Facility: [facility] Address: [address] [place] [address] Performed By: #### 2 4323-8 ####[facility] LABCLIA [id number] [place] [address] [place] Bilirubin [Mass/Vol] 2.1 mg/dL High 0.2-1.3 [facility] Comment on above: Order Comment: Speci men Type: BLOOD SPECIMENOrdering Facility: [facility] Address: [address] [place] [address] Performed By: #### 2 4323-8 ####[facility] LABCLIA [id number] [place] [address] [place] Calcium [Mass/Vol] 9.1 mg/dL Normal 8.5-10.2 [facility] Comment on above: Order Comment: Speci men Type: BLOOD SPECIMENOrdering Facility: [facility] Address: [address] [place] [address] Performed By: #### 2 4323-8 ####[facility] LABCLIA [id number] [place] [address] [place] Chloride [Moles/Vol] 100 mmol/L Normal 97-105 [facility] Comment on above: Order Comment: Speci men Type: BLOOD SPECIMENOrdering Facility: [facility] Address: [address] [place], [place] [address] Performed By: #### 2 4323-8 ####[facility] LABCLIA [id number] [place] [address] [place] CO2 [Moles/Vol] 22 mmol/L Normal 22-30 [facility] Comment on above: Order Comment: Speci men Type: BLOOD SPECIMENOrdering Facility: [facility] Address: [address] [place] [phone] Performed By: #### 2 4323-8 ####[facility] LABCLIA [id number] [place] [address] [place] Creatinine [Mass/Vol] 1.02 mg/dL Normal 0.73-1.22 [facility] Comment on above: Order Comment: Speci men Type: BLOOD SPECIMENOrdering Facility: [facility] Address: [address] [place] [address] Performed By: #### 2 4323-8 ####[facility] LABCLIA [id number] [place] [address] [place] ESTIMATED GLOMERULAR FILTRATION RATE 75 mL/min/1.73m??? Normal >=60 [facility] Comment on above: Order Comment: An cadena Type: BLOOD SPECIMENOrdering Facility: [facility] Address: [address] [place] [address] Result Comment: Fabiano mated Glomerular Filtration Rate (eGFR) is calculated using the 2020 CKD-EPI creatinine equation. This equation utilizes serum creatinine, sex, and age as parameters. The creatinine assay has traceable calibration to isotope dilution-mass spectrometry. Refer to KDIGO guidelines for clinical interpretation. In patients with unstable renal function, e.g. those with acute kidney injury, the eGFR may not accurately reflect actual GFR. Performed By: #### 2 4323-8 ####[facility] LABCLIA [id number] [place] [address] [place] Glucose [Mass/Vol] 69 mg/dL Low 74-99 [facility] Comment on above: Order Comment: An cadena Type: BLOOD SPECIMENOrdering Facility: [facility] Address: [address] [place] [address] Result Comment: The [place] Diabetes [employer] (ADA) provides guidance for cutoff values for fasting glucose and random glucose. The ADA defines fasting as no caloric intake for at least 8 hours. Fasting plasma glucose results between 100 to 125 mg/dL indicate increased risk for diabetes (prediabetes).Fasting plasma glucose results greater than or equal to 126 mg/dL meet the criteria for diagnosis of diabetes. In the absence of unequivocal hyperglycemia, results should be confirmed by repeat testing. In a patient with classic symptoms of hyperglycemia or hyperglycemic crisis, random plasma glucose results greater than or equal to 200 mg/dL meet the criteria for diagnosis of diabetes.Reference: Standards of Medical Care in Diabetes 2016, [place] [employer]. Diabetes Care. 2016.39(Suppl 1). Performed By: #### 2 4323-8 ####[facility] LABIA [id number] [place] [address] [place] Potassium [Moles/Vol] 4.4 mmol/L Normal 3.7-5.1 [facility] Comment on above: Order Comment: Speci men Type: BLOOD SPECIMENOrdering Facility: [facility] Address: [address] [place], [place] [address] Performed By: #### 2 4323-8 ####[facility] LABCLIA [id number] [place] [address] [place] Protein [Mass/Vol] 6.8 g/dL Normal 6.3-8.0 [facility] Comment on above: Order Comment: Speci men Type: BLOOD SPECIMENOrdering Facility: [facility] Address: [address] [place] [address] Performed By: #### 2 4323-8 ####[facility] LABCLIA [id number] [place] [address] [place] Sodium [Moles/Vol] 135 mmol/L Low 136-144 [facility] Comment on above: Order Comment: Speci men Type: BLOOD SPECIMENOrdering Facility: [facility] Address: [address] [place] [address] Performed By: #### 2 4323-8 ####[facility] LABCLIA [id number] [place] [address] [place] Urea nitrogen [Mass/Vol] 44 mg/dL High 9-24 [facility] Comment on above: Order Comment: Speci men Type: BLOOD SPECIMENOrdering Facility: [facility] Address: [address] [place], [place] [address] Performed By: #### 2 4323-8 ####[facility] LABCLIA [id number] [place] [address] [place] NUTRITIONon 08-14-2021 NUTRITION Normal [facility] PT panel Coag (PPP)on 2021 INR Coag (PPP) [Relative time] 1.5 {INR} High 0.9-1.3 [facility] Comment on above: Order Comment: Speci men Type: BLOOD SPECIMENOrdering Facility: [facility] Address: [address] [place] [address] Result Comment: Samantha min K Antagonist (VKA) Therapeutic Range: INR 2 to 3 (Target INR of 2.5)Note: For patients treated with VKA drugs, such as warfarin, the [place] [employer] 2012 Guideline recommends a therapeutic INR range of 2 to 3 (target INR of 2.5). This recommendation includes high-risk patients with antiphospholipid syndrome with previous arterial or venous thromboembolism, current-generation mechanical or bioprosthetic aortic heart valve replacement.Note: Patients with mechanical aortic valve replacement and additional risk factors for thromboembolic events (atrial fibrillation, previous thromboembolism, LV dysfunction, hypercoagulable conditions) or an older generation mechanical AVR (i.e., ball in-Cage) or any mechanical MVR should have a INR therapeutic range of 2.5 to 3.5 (target INR of 3).Gerard GH, et al. Chest 2012, 141:7S-47SNishimtayler RA, et al. [facility] 2017, 70: 252-289 Performed By: #### 3 4528-0 ####[facility] [id number] [place] [address] [place] PT Coag (PPP) [Time] 15.5 s High 9.7-13.0 [facility] Comment on above: Order Comment: Speci men Type: BLOOD SPECIMENOrdering Facility: [facility] Address: [address] [place] [address] Performed By: #### 3 4528-0 ####[facility] [id number] [place] [id number] [place] THERAPY NTon 08-14-2021 THERAPY NT Normal [facility] XR CHEST 1V FRONTAL PORTon 0 08-14-2021 XR CHEST 1V FRONTAL PORT Normal [facility] ALLIED HEALTHon 08-13-2021 ALLIED HEALTH Normal [facility] CASE MANAGEMon 08-13-2021 CASE MANAGEM Normal [facility] CBC panel Auto (Bld)on 08-13 Erythrocyte distribution width (RBC) [Ratio] 22.8 % High 11.5-15.0 [facility] Comment on above: Order Comment: Speci men Type: BLOOD SPECIMENOrdering Facility: [facility] Address: [address] [place], [place] [address] Performed By: #### 5 8410-2 ####[facility] LABCLIA [id number] [place] [address] [place] Hematocrit (Bld) [Volume fraction] 36.9 % Low 39.0-51.0 [facility] Comment on above: Order Comment: Speci men Type: BLOOD SPECIMENOrdering Facility: [facility] Address: [address] [place], [place] [address] Performed By: #### 5 8410-2 ####[facility] LABCLIA [id number] [place] [address] [place] Hemoglobin (Bld) [Mass/Vol] 11.1 g/dL Low 13.0-17.0 [facility] Comment on above: Order Comment: Speci men Type: BLOOD SPECIMENOrdering Facility: [facility] Address: [address] [place], [place] [address] Performed By: #### 5 8410-2 ####[facility] LABCLIA [id number] [place] [address] [place] MCH (RBC) [Entitic mass] 25.4 pg Low 26.0-34.0 [facility] Comment on above: Order Comment: Speci men Type: BLOOD SPECIMENOrdering Facility: [facility] Address: [address] [place], [place] [address] Performed By: #### 5 8410-2 ####[facility] LABCLIA [id number] [place] [address] [place] MCHC (RBC) [Mass/Vol] 30.1 g/dL Low 30.5-36.0 [facility] Comment on above: Order Comment: Speci men Type: BLOOD SPECIMENOrdering Facility: [facility] Address: [address] [place] [phone] Performed By: #### 5 8410-2 ####[facility] [id number] [address] MCV (RBC) [Entitic vol] 84.4 fL Normal 80.0-100.0 [facility] Comment on above: Order Comment: Speci men Type: BLOOD SPECIMENOrdering Facility: [facility] Address: [address] [place], [place] [address] Performed By: #### 5 8410-2 ####[facility] [id number] [place] [address] [place] Nucleated RBC (Bld) [#/Vol] 10*3/uL Normal <0.01 [facility] Comment on above: Order Comment: Speci men Type: BLOOD SPECIMENOrdering Facility: [facility] Address: [address] [place], [place] [address] Performed By: #### 5 8410-2 ####[facility] [id number] [place] [address] [place] Platelet mean volume (Bld) [Entitic vol] 9.8 fL Normal 9.0-12.7 [facility] Comment on above: Order Comment: Speci men Type: BLOOD SPECIMENOrdering Facility: [facility] Address: [address] [place] [address] Performed By: #### 5 8410-2 ####[facility] [id number] [place] [address] [place] Platelets (Bld) [#/Vol] 401 10*3/uL High 150-400 [facility] Comment on above: Order Comment: Speci men Type: BLOOD SPECIMENOrdering Facility: [facility] Address: [address] [place] [phone] Performed By: #### 5 8410-2 ####[facility] LABCLIA [id number] [address] [address] [place] RBC (Bld) [#/Vol] 4.37 10*6/uL Normal 4.20-6.00 [facility] Comment on above: Order Comment: Speci men Type: BLOOD SPECIMENOrdering Facility: [facility] Address: [address] [place], [place] [address] Performed By: #### 5 8410-2 ####[facility] LABCLIA [id number] [place] [address] [place] WBC (Bld) [#/Vol] 7.71 10*3/uL Normal 3.70-11.00 [facility] Comment on above: Order Comment: Speci men Type: BLOOD SPECIMENOrdering Facility: [facility] Address: [address] [place], [place] [address] Performed By: #### 5 8410-2 ####[facility] LABCLIA [id number] [place] [address] [place] CONSULTon 08-13-2021 CONSULT Normal [facility] Comprehensive metabolic 2000 panelon 08-13-2021 Albumin [Mass/Vol] 3.3 g/dL Low 3.9-4.9 [facility] Comment on above: Order Comment: Speci men Type: BLOOD SPECIMENOrdering Facility: [facility] Address: [address] [place] [address] Performed By: #### 2 4323-8 ####[facility] LABIA [id number] [place] [address] [place] ALP [Catalytic activity/Vol] 152 U/L High 38-113 [facility] Comment on above: Order Comment: Speci men Type: BLOOD SPECIMENOrdering Facility: [facility] Address: [address] [place], [place] [address] Performed By: #### 2 4323-8 ####[facility] LABCLIA [id number] [place] [address] [place] ALT [Catalytic activity/Vol] 58 U/L High 10-54 [facility] Comment on above: Order Comment: Speci men Type: BLOOD SPECIMENOrdering Facility: [facility] Address: [address] [place] [address] Performed By: #### 2 4323-8 ####[facility] LABCLIA [id number] [place] [address] [place] Anion gap [Moles/Vol] 15 mmol/L Normal 9-18 [facility] Comment on above: Order Comment: Speci men Type: BLOOD SPECIMENOrdering Facility: [facility] Address: [address] [place] [address] Performed By: #### 2 4323-8 ####[facility] LABCLIA [id number] [place] [address] [place] AST [Catalytic activity/Vol] 60 U/L High 14-40 [facility] Comment on above: Order Comment: Speci men Type: BLOOD SPECIMENOrdering Facility: [facility] Address: [address] [place], [place] [address] Performed By: #### 2 4323-8 ####[facility] LABCLIA [id number] [place] [address] [place] Bilirubin [Mass/Vol] 2.3 mg/dL High 0.2-1.3 [facility] Comment on above: Order Comment: Speci men Type: BLOOD SPECIMENOrdering Facility: [facility] Address: [address] [place], [place] [address] Performed By: #### 2 4323-8 ####[facility] LABCLIA [id number] [place] [address] [place] Calcium [Mass/Vol] 8.9 mg/dL Normal 8.5-10.2 [facility] Comment on above: Order Comment: Speci men Type: BLOOD SPECIMENOrdering Facility: [facility] Address: [address] [place] [address] Performed By: #### 2 4323-8 ####[facility] LABCLIA [id number] [place] [id number] [place] Chloride [Moles/Vol] 98 mmol/L Normal 97-105 [facility] Comment on above: Order Comment: Speci men Type: BLOOD SPECIMENOrdering Facility: [facility] Address: [address] [place], [place] [address] Performed By: #### 2 4323-8 ####[facility] LABCLIA [id number] [place] [address] [place] CO2 [Moles/Vol] 22 mmol/L Normal 22-30 [facility] Comment on above: Order Comment: Speci men Type: BLOOD SPECIMENOrdering Facility: [facility] Address: [address] [place], [place] [address] Performed By: #### 2 4323-8 ####[facility] LABCLIA [id number] [place] [address] [place] Creatinine [Mass/Vol] 1.12 mg/dL Normal 0.73-1.22 [facility] Comment on above: Order Comment: Speci men Type: BLOOD SPECIMENOrdering Facility: [facility] Address: [address] [place] [address] Performed By: #### 2 4323-8 ####[facility] LABCLIA [id number] [place] [id number] [place] ESTIMATED GLOMERULAR FILTRATION RATE 67 mL/min/1.73m??? Normal >=60 [facility] Comment on above: Order Comment: Speci men Type: BLOOD SPECIMENOrdering Facility: [facility] Address: [address] [place], [place] [address] Result Comment: Fabiano mated Glomerular Filtration Rate (eGFR) is calculated using the 2020 CKD-EPI creatinine equation. This equation utilizes serum creatinine, sex, and age as parameters. The creatinine assay has traceable calibration to isotope dilution-mass spectrometry. Refer to KDIGO guidelines for clinical interpretation. In patients with unstable renal function, e.g. those with acute kidney injury, the eGFR may not accurately reflect actual GFR. Performed By: #### 2 4323-8 ####[facility] LABCLIA [id number] [place] [address] [place] Glucose [Mass/Vol] 81 mg/dL Normal 74-99 [facility] Comment on above: Order Comment: An cadena Type: BLOOD SPECIMENOrdering Facility: [facility] Address: [address] [place] [address] Result Comment: The [place] Diabetes Association (ADA) provides guidance for cutoff values for fasting glucose and random glucose. The ADA defines fasting as no caloric intake for at least 8 hours. Fasting plasma glucose results between 100 to 125 mg/dL indicate increased risk for diabetes (prediabetes).Fasting plasma glucose results greater than or equal to 126 mg/dL meet the criteria for diagnosis of diabetes. In the absence of unequivocal hyperglycemia, results should be confirmed by repeat testing. In a patient with classic symptoms of hyperglycemia or hyperglycemic crisis, random plasma glucose results greater than or equal to 200 mg/dL meet the criteria for diagnosis of diabetes.Reference: Standards of Medical Care in Diabetes 2016, [place] [employer]. Diabetes Care. 2016.39(Suppl 1). Performed By: #### 2 4323-8 ####[facility] LABCLIA [id number] [place] [address] [place] Potassium [Moles/Vol] 4.2 mmol/L Normal 3.7-5.1 [facility] Comment on above: Order Comment: An cadena Type: BLOOD SPECIMENOrdering Facility: [facility] Address: [address] [place] [phone] Performed By: #### 2 4323-8 ####[facility] LABIA [id number] [place] [address] [place] Protein [Mass/Vol] 6.4 g/dL Normal 6.3-8.0 [facility] Comment on above: Order Comment: Speci men Type: BLOOD SPECIMENOrdering Facility: [facility] Address: [address] [place] [address] Performed By: #### 2 4323-8 ####[facility] LABCLIA [id number] [place] [address] [place] Sodium [Moles/Vol] 135 mmol/L Low 136-144 [facility] Comment on above: Order Comment: Speci men Type: BLOOD SPECIMENOrdering Facility: [facility] Address: [address] [place] [address] Performed By: #### 2 4323-8 ####[facility] LABCLIA [id number] [place] [address] [place] Urea nitrogen [Mass/Vol] 46 mg/dL High 9-24 [facility] Comment on above: Order Comment: Speci men Type: BLOOD SPECIMENOrdering Facility: [facility] Address: [address] [place] [address] Performed By: #### 2 4323-8 ####[facility] LABCLIA [id number] [place] [address] [place] NURSING PROGon 08-13-2021 NURSING PROG Normal [facility] NURSING PROG Normal [facility] PT panel Coag (PPP)on 2021 INR Coag (PPP) [Relative time] 1.4 {INR} High 0.9-1.3 [facility] Comment on above: Order Comment: Speci men Type: BLOOD SPECIMENOrdering Facility: [facility] Address: [address] [place] [address] Result Comment: Samantha min K Antagonist (VKA) Therapeutic Range: INR 2 to 3 (Target INR of 2.5)Note: For patients treated with VKA drugs, such as warfarin, the [place] [employer] 2012 Guideline recommends a therapeutic INR range of 2 to 3 (target INR of 2.5). This recommendation includes high-risk patients with antiphospholipid syndrome with previous arterial or venous thromboembolism, current-generation mechanical or bioprosthetic aortic heart valve replacement.Note: Patients with mechanical aortic valve replacement and additional risk factors for thromboembolic events (atrial fibrillation, previous thromboembolism, LV dysfunction, hypercoagulable conditions) or an older generation mechanical AVR (i.e., ball in-Cage) or any mechanical MVR should have a INR therapeutic range of 2.5 to 3.5 (target INR of 3).Gerard GH, et al. Chest 2012, 141:7S-47SNishdorene RA, et al. [facility] 2017, 70: 252-289 Performed By: #### 3 4528-0 ####[facility] [id number] [address] [place] PT Coag (PPP) [Time] 14.8 s High 9.7-13.0 [facility] Comment on above: Order Comment: Speci men Type: BLOOD SPECIMENOrdering Facility: [facility] Address: [address] [place] [address] Performed By: #### 3 4528-0 ####[facility] [id number] [address] [place] THERAPY NTon 08-13-2021 THERAPY NT Normal [facility] CBC panel Auto (Bld)on 08-12 Erythrocyte distribution width (RBC) [Ratio] 22.5 % High 11.5-15.0 [facility] Comment on above: Order Comment: Cmi surinder Type: BLOOD SPECIMENOrdering Facility: [facility] Address: [address] [place] [address] Performed By: #### 5 8410-2 ####[facility] [id number] [address] STATES OF [facility] Hematocrit (Bld) [Volume fraction] 37.2 % Low 39.0-51.0 [facility] Comment on above: Order Comment: Speci men Type: BLOOD SPECIMENOrdering Facility: [facility] Address: [address] [place] [address] Performed By: #### 5 8410-2 ####[facility] [id number] [place] [address] [place] Hemoglobin (Bld) [Mass/Vol] 11.4 g/dL Low 13.0-17.0 [facility] Comment on above: Order Comment: Speci men Type: BLOOD SPECIMENOrdering Facility: [facility] Address: [address] [place] [address] Performed By: #### 5 8410-2 ####[facility] [id number] [address] [place] MCH (RBC) [Entitic mass] 25.0 pg Low 26.0-34.0 [facility] Comment on above: Order Comment: Speci men Type: BLOOD SPECIMENOrdering Facility: [facility] Address: [address] [place] [address] Performed By: #### 5 8410-2 ####[facility] [id number] [address] [place] MCHC (RBC) [Mass/Vol] 30.6 g/dL Normal 30.5-36.0 [facility] Comment on above: Order Comment: Speci men Type: BLOOD SPECIMENOrdering Facility: [facility] Address: [address] [place], [place] [address] Performed By: #### 5 8410-2 ####[facility] [id number] [place] [address] [place] MCV (RBC) [Entitic vol] 81.6 fL Normal 80.0-100.0 [facility] Comment on above: Order Comment: Speci men Type: BLOOD SPECIMENOrdering Facility: [facility] Address: [address] [place], [place] [address] Performed By: #### 5 8410-2 ####[facility] LABCLIA [id number] [place] [address] [place] Nucleated RBC (Bld) [#/Vol] 10*3/uL Normal <0.01 [facility] Comment on above: Order Comment: Speci men Type: BLOOD SPECIMENOrdering Facility: [facility] Address: [address] [place] [address] Performed By: #### 5 8410-2 ####[facility] LABIA [id number] [place] [address] [place] Platelet mean volume (Bld) [Entitic vol] 9.8 fL Normal 9.0-12.7 [facility] Comment on above: Order Comment: Speci men Type: BLOOD SPECIMENOrdering Facility: [facility] Address: [address] [place] [address] Performed By: #### 5 8410-2 ####[facility] LABIA [id number] [place] [address] [place] Platelets (Bld) [#/Vol] 424 10*3/uL High 150-400 [facility] Comment on above: Order Comment: Speci men Type: BLOOD SPECIMENOrdering Facility: [facility] Address: [address] [place] [phone] Performed By: #### 5 8410-2 ####[facility] [facility] LABIA [id number] [place] [address] [place] RBC (Bld) [#/Vol] 4.56 10*6/uL Normal 4.20-6.00 [facility] Comment on above: Order Comment: Speci men Type: BLOOD SPECIMENOrdering Facility: [facility] Address: [address] [place] [phone] Performed By: #### 5 8410-2 ####[facility] LABCLIA [id number] [place] [address] [place] WBC (Bld) [#/Vol] 8.77 10*3/uL Normal 3.70-11.00 [facility] Comment on above: Order Comment: Speci men Type: BLOOD SPECIMENOrdering Facility: [facility] Address: [address] [place] [address] Performed By: #### 5 8410-2 ####[facility] LABCLIA [id number] [place] [address] [place] [facility] Comprehensive metabolic 2000 panelon 2021 Albumin [Mass/Vol] 3.4 g/dL Low 3.9-4.9 [facility] Comment on above: Order Comment: Speci men Type: BLOOD SPECIMENOrdering Facility: [facility] Address: [address] [place] [address] Performed By: #### 2 4323-8 ####[facility] LABCLIA [id number] [place] [address] [place] ALP [Catalytic activity/Vol] 151 U/L High 38-113 [facility] Comment on above: Order Comment: Speci men Type: BLOOD SPECIMENOrdering Facility: [facility] Address: [address] [place] [address] Performed By: #### 2 4323-8 ####[facility] LABCLIA [id number] [place] [address] [place] ALT [Catalytic activity/Vol] 55 U/L High 10-54 [facility] Comment on above: Order Comment: Speci men Type: BLOOD SPECIMENOrdering Facility: [facility] Address: [address] [place], [place] [address] Performed By: #### 2 4323-8 ####[facility] LABCLIA [id number] [place] [address] [place] Anion gap [Moles/Vol] 11 mmol/L Normal 9-18 [facility] Comment on above: Order Comment: Speci men Type: BLOOD SPECIMENOrdering Facility: [facility] Address: [address] [place] [address] Performed By: #### 2 4323-8 ####[facility] LABCLIA [id number] [place] [address] [place] AST [Catalytic activity/Vol] 58 U/L High 14-40 [facility] Comment on above: Order Comment: Speci men Type: BLOOD SPECIMENOrdering Facility: [facility] Address: [address] [place], [place] [address] Performed By: #### 2 4323-8 ####[facility] LABCLIA [id number] [place] [address] [place] Bilirubin [Mass/Vol] 2.5 mg/dL High 0.2-1.3 [facility] Comment on above: Order Comment: Speci men Type: BLOOD SPECIMENOrdering Facility: [facility] Address: [address] [place] [address] Performed By: #### 2 4323-8 ####[facility] LABCLIA [id number] [place] [address] [place] Calcium [Mass/Vol] 8.9 mg/dL Normal 8.5-10.2 [facility] Comment on above: Order Comment: Speci men Type: BLOOD SPECIMENOrdering Facility: [facility] Address: [address] [place] [address] Performed By: #### 2 4323-8 ####[facility] LABCLIA [id number] [place] [address] [place] Chloride [Moles/Vol] 98 mmol/L Normal 97-105 [facility] Comment on above: Order Comment: Speci men Type: BLOOD SPECIMENOrdering Facility: [facility] Address: [address] [place] [address] Performed By: #### 2 4323-8 ####[facility] LABCLIA [id number] [place] [address] [place] CO2 [Moles/Vol] 26 mmol/L Normal 22-30 [facility] Comment on above: Order Comment: Speci men Type: BLOOD SPECIMENOrdering Facility: [facility] Address: [address] [place] [address] Performed By: #### 2 4323-8 ####[facility] LABCLIA [id number] [place] [address] [place] Creatinine [Mass/Vol] 1.19 mg/dL Normal 0.73-1.22 [facility] Comment on above: Order Comment: Speci men Type: BLOOD SPECIMENOrdering Facility: [facility] Address: [address] [place] [address] Performed By: #### 2 4323-8 ####[facility] LABIA [id number] [address] STATES OF [facility] ESTIMATED GLOMERULAR FILTRATION RATE 63 mL/min/1.73m??? Normal >=60 [facility] Comment on above: Order Comment: Speci men Type: BLOOD SPECIMENOrdering Facility: [facility] Address: [address] [place] [address] Result Comment: Fabiano mated Glomerular Filtration Rate (eGFR) is calculated using the 2020 CKD-EPI creatinine equation. This equation utilizes serum creatinine, sex, and age as parameters. The creatinine assay has traceable calibration to isotope dilution-mass spectrometry. Refer to KDIGO guidelines for clinical interpretation. In patients with unstable renal function, e.g. those with acute kidney injury, the eGFR may not accurately reflect actual GFR. Performed By: #### 2 4323-8 ####[facility] LABCLIA [id number] [place] [address] [place] Glucose [Mass/Vol] 87 mg/dL Normal 74-99 [facility] Comment on above: Order Comment: Speci men Type: BLOOD SPECIMENOrdering Facility: [facility] Address: [address] [phone] Result Comment: The [place] Diabetes Association (ADA) provides guidance for cutoff values for fasting glucose and random glucose. The ADA defines fasting as no caloric intake for at least 8 hours. Fasting plasma glucose results between 100 to 125 mg/dL indicate increased risk for diabetes (prediabetes).Fasting plasma glucose results greater than or equal to 126 mg/dL meet the criteria for diagnosis of diabetes. In the absence of unequivocal hyperglycemia, results should be confirmed by repeat testing. In a patient with classic symptoms of hyperglycemia or hyperglycemic crisis, random plasma glucose results greater than or equal to 200 mg/dL meet the criteria for diagnosis of diabetes.Reference: Standards of Medical Care in Diabetes 2016, [place] [employer]. Diabetes Care. 2016.39(Suppl 1). Performed By: #### 2 4323-8 ####[facility] LABCLIA [id number] [place] [address] [place] Potassium [Moles/Vol] 4.7 mmol/L Normal 3.7-5.1 [facility] Comment on above: Order Comment: Speci men Type: BLOOD SPECIMENOrdering Facility: [facility] Address: [address] Performed By: #### 2 4323-8 ####[facility] LABCLIA [id number] [place] [address] [place] Protein [Mass/Vol] 6.6 g/dL Normal 6.3-8.0 [facility] Comment on above: Order Comment: Speci men Type: BLOOD SPECIMENOrdering Facility: [facility] Address: [address] [phone] Performed By: #### 2 4323-8 ####[facility] LABCLIA [id number] [place] [address] [place] Sodium [Moles/Vol] 135 mmol/L Low 136-144 [facility] Comment on above: Order Comment: Speci men Type: BLOOD SPECIMENOrdering Facility: [facility] Address: [address] [place] [address] Performed By: #### 2 4323-8 ####[facility] LABIA [id number] [place] [address] [place] Urea nitrogen [Mass/Vol] 39 mg/dL High 9-24 [facility] Comment on above: Order Comment: Speci men Type: BLOOD SPECIMENOrdering Facility: [facility] Address: [address] [place] [address] Performed By: #### 2 4323-8 ####[facility] LABIA [id number] [address] [place] DIGOXIN/LANOXINon 2021 Digoxin [Mass/Vol] 1.0 ng/mL Normal 0.6-1.2 [facility] Comment on above: Order Comment: Cmi surinder Type: BLOOD SPECIMENOrdering Facility: [facility] Address: [address] [place] [address] Result Comment: Prov ided therapeutic concentrations are based on the 2008 ESC Guidelines for the Diagnosis and Treatment of Acute and Chronic Heart Failure.Reference ranges and high/low indicator flags are provided as general guidelines only. The treating physician must determine appropriate target levels/dosing based on the specific clinical situation. Performed By: #### D IG ####[facility] [id number] [place] [address] [place] NURSING PROGon 2021 NURSING PROG Normal [facility] NURSING PROG Normal [facility] NURSING PROG Normal [facility] PT panel Coag (PPP)on 2021 INR Coag (PPP) [Relative time] 1.4 {INR} High 0.9-1.3 [facility] Comment on above: Order Comment: Speci men Type: BLOOD SPECIMENOrdering Facility: [facility] Address: [address] [place], [place] [address] Result Comment: Samantha min K Antagonist (VKA) Therapeutic Range: INR 2 to 3 (Target INR of 2.5)Note: For patients treated with VKA drugs, such as warfarin, the [place] [employer] 2012 Guideline recommends a therapeutic INR range of 2 to 3 (target INR of 2.5). This recommendation includes high-risk patients with antiphospholipid syndrome with previous arterial or venous thromboembolism, current-generation mechanical or bioprosthetic aortic heart valve replacement.Note: Patients with mechanical aortic valve replacement and additional risk factors for thromboembolic events (atrial fibrillation, previous thromboembolism, LV dysfunction, hypercoagulable conditions) or an older generation mechanical AVR (i.e., ball in-Cage) or any mechanical MVR should have a INR therapeutic range of 2.5 to 3.5 (target INR of 3).Gerard GH, et al. Chest 2012, 141:7S-47SNishimura RA, et al. [facility] 2017, 70: 252-289 Performed By: #### 3 4528-0 ####[facility] [id number] [place] [address] [place] PT Coag (PPP) [Time] 14.3 s High 9.7-13.0 [facility] Comment on above: Order Comment: Speci men Type: BLOOD SPECIMENOrdering Facility: [facility] Address: [address] [place] [address] Performed By: #### 3 4528-0 ####[facility] [id number] [address] [place] XR CHEST 2V FRONTAL/LATon XR CHEST 2V FRONTAL/LAT Normal [facility] CBC panel Auto (Bld)on 08-11 Erythrocyte distribution width (RBC) [Ratio] 22.5 % High 11.5-15.0 [facility] Comment on above: Order Comment: Speci men Type: BLOOD SPECIMENOrdering Facility: [facility] Address: [address] [place] [address] Performed By: #### 5 8410-2 ####[facility] LABIA [id number] [place] [address] [place] Hematocrit (Bld) [Volume fraction] 35.9 % Low 39.0-51.0 [facility] Comment on above: Order Comment: Speci men Type: BLOOD SPECIMENOrdering Facility: [facility] Address: [address] [place] [address] Performed By: #### 5 8410-2 ####[facility] LABCLIA [id number] [place] [address] [place] Hemoglobin (Bld) [Mass/Vol] 11.2 g/dL Low 13.0-17.0 [facility] Comment on above: Order Comment: Speci men Type: BLOOD SPECIMENOrdering Facility: [facility] Address: [address] [place] [address] Performed By: #### 5 8410-2 ####[facility] LABCLIA [id number] [place] [address] [place] MCH (RBC) [Entitic mass] 24.9 pg Low 26.0-34.0 [facility] Comment on above: Order Comment: Speci men Type: BLOOD SPECIMENOrdering Facility: [facility] Address: [address] [place], [place] [address] Performed By: #### 5 8410-2 ####[facility] LABCLIA [id number] [place] [address] [place] MCHC (RBC) [Mass/Vol] 31.2 g/dL Normal 30.5-36.0 [facility] Comment on above: Order Comment: Speci men Type: BLOOD SPECIMENOrdering Facility: [facility] Address: [address] [place], [place] [address] Performed By: #### 5 8410-2 ####[facility] LABCLIA [id number] [place] [address] [place] MCV (RBC) [Entitic vol] 79.8 fL Low 80.0-100.0 [facility] Comment on above: Order Comment: Speci men Type: BLOOD SPECIMENOrdering Facility: [facility] Address: [address] [place], [place] [address] Performed By: #### 5 8410-2 ####[facility] LABIA [id number] [place] [address] [place] Nucleated RBC (Bld) [#/Vol] 10*3/uL Normal <0.01 [facility] Comment on above: Order Comment: Speci men Type: BLOOD SPECIMENOrdering Facility: [facility] Address: [address] [place], [place] [address] Performed By: #### 5 8410-2 ####[facility] LABIA [id number] [place] [address] [place] Platelet mean volume (Bld) [Entitic vol] 9.7 fL Normal 9.0-12.7 [facility] Comment on above: Order Comment: Speci men Type: BLOOD SPECIMENOrdering Facility: [facility] Address: [address] [place], [place] [address] Performed By: #### 5 8410-2 ####[facility] LABIA [id number] [place] [address] [place] Platelets (Bld) [#/Vol] 436 10*3/uL High 150-400 [facility] Comment on above: Order Comment: Speci men Type: BLOOD SPECIMENOrdering Facility: [facility] Address: [address] [place] [address] Performed By: #### 5 8410-2 ####[facility] LABIA [id number] [place] [address] [place] RBC (Bld) [#/Vol] 4.50 10*6/uL Normal 4.20-6.00 [facility] Comment on above: Order Comment: Speci men Type: BLOOD SPECIMENOrdering Facility: [facility] Address: [address] [place], [place] [address] Performed By: #### 5 8410-2 ####[facility] LABCLIA [id number] [place] [address] [place] WBC (Bld) [#/Vol] 7.63 10*3/uL Normal 3.70-11.00 [facility] Comment on above: Order Comment: Speci men Type: BLOOD SPECIMENOrdering Facility: [facility] Address: [address] [place], [place] [address] Performed By: #### 5 8410-2 ####[facility] LABCLIA [id number] [place] [address] [place] [facility] Comprehensive metabolic 2000 panelon 08-11-2021 Albumin [Mass/Vol] 3.2 g/dL Low 3.9-4.9 [facility] Comment on above: Order Comment: Speci men Type: BLOOD SPECIMENOrdering Facility: [facility] Address: [address] [place], [place] [address] Performed By: #### 2 4323-8 ####[facility] LABCLIA [id number] [place] [address] [place] ALP [Catalytic activity/Vol] 149 U/L High 38-113 [facility] Comment on above: Order Comment: Speci men Type: BLOOD SPECIMENOrdering Facility: [facility] Address: [address] [place] [address] Performed By: #### 2 4323-8 ####[facility] LABCLIA [id number] [place] [address] [place] ALT [Catalytic activity/Vol] 53 U/L Normal 10-54 [facility] Comment on above: Order Comment: Speci men Type: BLOOD SPECIMENOrdering Facility: [facility] Address: [address] [place], [place] [address] Performed By: #### 2 4323-8 ####[facility] LABCLIA [id number] [place] [address] [place] Anion gap [Moles/Vol] 16 mmol/L Normal 9-18 [facility] Comment on above: Order Comment: Speci men Type: BLOOD SPECIMENOrdering Facility: [facility] Address: [address] [place] [address] Performed By: #### 2 4323-8 ####[facility] LABCLIA [id number] [place] [address] [place] AST [Catalytic activity/Vol] 63 U/L High 14-40 [facility] Comment on above: Order Comment: Speci men Type: BLOOD SPECIMENOrdering Facility: [facility] Address: [address] [place] [address] Performed By: #### 2 4323-8 ####[facility] LABCLIA [id number] [place] [address] [place] Bilirubin [Mass/Vol] 2.7 mg/dL High 0.2-1.3 [facility] Comment on above: Order Comment: Speci men Type: BLOOD SPECIMENOrdering Facility: [facility] Address: [address] [place], [place] [address] Performed By: #### 2 4323-8 ####[facility] LABCLIA [id number] [place] [address] [place] Calcium [Mass/Vol] 9.1 mg/dL Normal 8.5-10.2 [facility] Comment on above: Order Comment: Speci men Type: BLOOD SPECIMENOrdering Facility: [facility] Address: [address] [place], [place] [address] Performed By: #### 2 4323-8 ####[facility] LABCLIA [id number] [place] [id number] [place] Chloride [Moles/Vol] 96 mmol/L Low 97-105 [facility] Comment on above: Order Comment: Speci men Type: BLOOD SPECIMENOrdering Facility: [facility] Address: [address] [place] [address] Performed By: #### 2 4323-8 ####[facility] LABIA [id number] [place] [address] [place] CO2 [Moles/Vol] 23 mmol/L Normal 22-30 [facility] Comment on above: Order Comment: Speci men Type: BLOOD SPECIMENOrdering Facility: [facility] Address: [address] [place] [address] Performed By: #### 2 4323-8 ####[facility] [id number] [address] [place] OF [facility] Creatinine [Mass/Vol] 0.94 mg/dL Normal 0.73-1.22 [facility] Comment on above: Order Comment: Speci men Type: BLOOD SPECIMENOrdering Facility: [facility] Address: [address] [place] [address] Performed By: #### 2 4323-8 ####[facility] LABIA [id number] [address] ESTIMATED GLOMERULAR FILTRATION RATE 83 mL/min/1.73m??? Normal >=60 [facility] Comment on above: Order Comment: Speci men Type: BLOOD SPECIMENOrdering Facility: [facility] Address: [address] [place] [address] Result Comment: Fabiano mated Glomerular Filtration Rate (eGFR) is calculated using the 2020 CKD-EPI creatinine equation. This equation utilizes serum creatinine, sex, and age as parameters. The creatinine assay has traceable calibration to isotope dilution-mass spectrometry. Refer to KDIGO guidelines for clinical interpretation. In patients with unstable renal function, e.g. those with acute kidney injury, the eGFR may not accurately reflect actual GFR. Performed By: #### 2 4323-8 ####[facility] LABIA [id number] [place] [address] [place] Glucose [Mass/Vol] 87 mg/dL Normal 74-99 [facility] Comment on above: Order Comment: Speci men Type: BLOOD SPECIMENOrdering Facility: [facility] Address: [address] [place] [address] Result Comment: The [place] Diabetes Association (ADA) provides guidance for cutoff values for fasting glucose and random glucose. The ADA defines fasting as no caloric intake for at least 8 hours. Fasting plasma glucose results between 100 to 125 mg/dL indicate increased risk for diabetes (prediabetes).Fasting plasma glucose results greater than or equal to 126 mg/dL meet the criteria for diagnosis of diabetes. In the absence of unequivocal hyperglycemia, results should be confirmed by repeat testing. In a patient with classic symptoms of hyperglycemia or hyperglycemic crisis, random plasma glucose results greater than or equal to 200 mg/dL meet the criteria for diagnosis of diabetes.Reference: Standards of Medical Care in Diabetes 2016, [place] [employer]. Diabetes Care. 2016.39(Suppl 1). Performed By: #### 2 4323-8 ####[facility] LABCLIA [id number] [place] [address] [place] Potassium [Moles/Vol] 4.7 mmol/L Normal 3.7-5.1 [facility] Comment on above: Order Comment: Speci men Type: BLOOD SPECIMENOrdering Facility: [facility] Address: [address] [place], [place] [address] Performed By: #### 2 4323-8 ####[facility] LABCLIA [id number] [place] [address] [place] Protein [Mass/Vol] 6.6 g/dL Normal 6.3-8.0 [facility] Comment on above: Order Comment: Speci men Type: BLOOD SPECIMENOrdering Facility: [facility] Address: [address] [phone] Performed By: #### 2 4323-8 ####[facility] LABCLIA [id number] [place] [address] [place] Sodium [Moles/Vol] 135 mmol/L Low 136-144 [facility] Comment on above: Order Comment: An cadena Type: BLOOD SPECIMENOrdering Facility: [facility] Address: [address] [place] [address] Performed By: #### 2 4323-8 ####[facility] LABCLIA [id number] [address] [place] Urea nitrogen [Mass/Vol] 35 mg/dL High 9-24 [facility] Comment on above: Order Comment: An cadena Type: BLOOD SPECIMENOrdering Facility: [facility] Address: [address] [place] [address] Performed By: #### 2 4323-8 ####[facility] LABCLIA [id number] [place] [address] [place] NURSING PROGon 08-11-2021 NURSING PROG Normal [facility] PT panel Coag (PPP)on 2021 INR Coag (PPP) [Relative time] 1.3 {INR} Normal 0.9-1.3 [facility] Comment on above: Order Comment: An cadena Type: BLOOD SPECIMENOrdering Facility: [facility] Address: [address] [place] [address] Result Comment: Samantha min K Antagonist (VKA) Therapeutic Range: INR 2 to 3 (Target INR of 2.5)Note: For patients treated with VKA drugs, such as warfarin, the [place] [employer] 2012 Guideline recommends a therapeutic INR range of 2 to 3 (target INR of 2.5). This recommendation includes high-risk patients with antiphospholipid syndrome with previous arterial or venous thromboembolism, current-generation mechanical or bioprosthetic aortic heart valve replacement.Note: Patients with mechanical aortic valve replacement and additional risk factors for thromboembolic events (atrial fibrillation, previous thromboembolism, LV dysfunction, hypercoagulable conditions) or an older generation mechanical AVR (i.e., ball in-Cage) or any mechanical MVR should have a INR therapeutic range of 2.5 to 3.5 (target INR of 3).Gerard CONRAD, et al. Chest 2012, 141:7S-47SNishimtayler RA, et al. JAC 2017, 70: 252-289 Performed By: #### 3 4528-0 ####[facility] LABCLIA [id number] [place] [address] [place] PT Coag (PPP) [Time] 13.8 s High 9.7-13.0 [facility] Comment on above: Order Comment: Speci men Type: BLOOD SPECIMENOrdering Facility: [facility] Address: [address] [place] [address] Performed By: #### 3 4528-0 ####[facility] LABIA [id number] [address] [place] CASE MANAGEMon 08-10-2021 CASE MANAGEM Normal [facility] CBC panel Auto (Bld)on 08-10 Erythrocyte distribution width (RBC) [Ratio] 22.7 % High 11.5-15.0 [facility] Comment on above: Order Comment: Speci men Type: BLOOD SPECIMENOrdering Facility: [facility] Address: [address] [place], [place] [address] Performed By: #### 5 8410-2 ####[facility] LABIA [id number] [address] [place] Hematocrit (Bld) [Volume fraction] 33.8 % Low 39.0-51.0 [facility] Comment on above: Order Comment: Speci men Type: BLOOD SPECIMENOrdering Facility: [facility] Address: [address] [place], [place] [address] Performed By: #### 5 8410-2 ####[facility] LABIA [id number] [place] [address] [place] Hemoglobin (Bld) [Mass/Vol] 10.5 g/dL Low 13.0-17.0 [facility] Comment on above: Order Comment: Speci men Type: BLOOD SPECIMENOrdering Facility: [facility] Address: [address] [place] [address] Performed By: #### 5 8410-2 ####[facility] [id number] [address] STATES OF [facility] MCH (RBC) [Entitic mass] 24.7 pg Low 26.0-34.0 [facility] Comment on above: Order Comment: Speci men Type: BLOOD SPECIMENOrdering Facility: [facility] Address: [address] [place] [address] Performed By: #### 5 8410-2 ####[facility] [id number] [address] [place] MCHC (RBC) [Mass/Vol] 31.1 g/dL Normal 30.5-36.0 [facility] Comment on above: Order Comment: Speci men Type: BLOOD SPECIMENOrdering Facility: [facility] Address: [address] [place] [address] Performed By: #### 5 8410-2 ####[facility] [id number] [address] [place] MCV (RBC) [Entitic vol] 79.5 fL Low 80.0-100.0 [facility] Comment on above: Order Comment: Speci men Type: BLOOD SPECIMENOrdering Facility: [facility] Address: [address] [place], [place] [address] Performed By: #### 5 8410-2 ####[facility] [id number] [place] [address] [place] Nucleated RBC (Bld) [#/Vol] 10*3/uL Normal <0.01 [facility] Comment on above: Order Comment: Speci men Type: BLOOD SPECIMENOrdering Facility: [facility] Address: [address] [place], [place] [address] Performed By: #### 5 8410-2 ####[facility] LABCLIA [id number] [place] [address] [place] Platelet mean volume (Bld) [Entitic vol] 9.3 fL Normal 9.0-12.7 [facility] Comment on above: Order Comment: Speci men Type: BLOOD SPECIMENOrdering Facility: [facility] Address: [address] [place] [address] Performed By: #### 5 8410-2 ####[facility] LABIA [id number] [place] [address] [place] Platelets (Bld) [#/Vol] 470 10*3/uL High 150-400 [facility] Comment on above: Order Comment: Speci men Type: BLOOD SPECIMENOrdering Facility: [facility] Address: [address] [place] [phone] Performed By: #### 5 8410-2 ####[facility] LABIA [id number] [place] [address] [place] RBC (Bld) [#/Vol] 4.25 10*6/uL Normal 4.20-6.00 [facility] Comment on above: Order Comment: Speci men Type: BLOOD SPECIMENOrdering Facility: [facility] Address: [address] [place] [address] Performed By: #### 5 8410-2 ####[facility] LABIA [id number] [place] [address] [place] WBC (Bld) [#/Vol] 7.86 10*3/uL Normal 3.70-11.00 [facility] Comment on above: Order Comment: Speci men Type: BLOOD SPECIMENOrdering Facility: [facility] Address: [address] [place] [address] Performed By: #### 5 8410-2 ####[facility] LABCLIA [id number] [place] [address] [place] Comprehensive metabolic 2000 panelon 08-10-2021 Albumin [Mass/Vol] 3.3 g/dL Low 3.9-4.9 [facility] Comment on above: Order Comment: Speci men Type: BLOOD SPECIMENOrdering Facility: [facility] Address: [address] [place] [address] Performed By: #### 2 4323-8 ####[facility] LABCLIA [id number] [place] [address] [place] ALP [Catalytic activity/Vol] 144 U/L High 38-113 [facility] Comment on above: Order Comment: Speci men Type: BLOOD SPECIMENOrdering Facility: [facility] Address: [address] [place] [address] Performed By: #### 2 4323-8 ####[facility] LABCLIA [id number] [address] [place] ALT [Catalytic activity/Vol] 39 U/L Normal 10-54 [facility] Comment on above: Order Comment: Speci men Type: BLOOD SPECIMENOrdering Facility: [facility] Address: [address] [place] [address] Performed By: #### 2 4323-8 ####[facility] LABCLIA [id number] [place] [address] [place] Anion gap [Moles/Vol] 10 mmol/L Normal 9-18 [facility] Comment on above: Order Comment: Speci men Type: BLOOD SPECIMENOrdering Facility: [facility] Address: [address] [place], [place] [address] Performed By: #### 2 4323-8 ####[facility] LABCLIA [id number] [place] [address] [place] AST [Catalytic activity/Vol] 53 U/L High 14-40 [facility] Comment on above: Order Comment: Speci men Type: BLOOD SPECIMENOrdering Facility: [facility] Address: [address] [place] [address] Performed By: #### 2 4323-8 ####[facility] LABCLIA [id number] [place] [address] [place] Bilirubin [Mass/Vol] 3.1 mg/dL High 0.2-1.3 [facility] Comment on above: Order Comment: Speci men Type: BLOOD SPECIMENOrdering Facility: [facility] Address: [address] [place] [address] Performed By: #### 2 4323-8 ####[facility] LABCLIA [id number] [place] [address] [place] Calcium [Mass/Vol] 8.9 mg/dL Normal 8.5-10.2 [facility] Comment on above: Order Comment: Speci men Type: BLOOD SPECIMENOrdering Facility: [facility] Address: [address] [place] [address] Performed By: #### 2 4323-8 ####[facility] LABCLIA [id number] [place] [address] [place] Chloride [Moles/Vol] 97 mmol/L Normal 97-105 [facility] Comment on above: Order Comment: Speci men Type: BLOOD SPECIMENOrdering Facility: [facility] Address: [address] [place] [address] Performed By: #### 2 4323-8 ####[facility] LABCLIA [id number] [place] [address] [place] CO2 [Moles/Vol] 26 mmol/L Normal 22-30 [facility] Comment on above: Order Comment: Speci men Type: BLOOD SPECIMENOrdering Facility: [facility] Address: [address] [place] [address] Performed By: #### 2 4323-8 ####[facility] LABCLIA [id number] [address] [address] [place] Creatinine [Mass/Vol] 0.87 mg/dL Normal 0.73-1.22 [facility] Comment on above: Order Comment: An cadena Type: BLOOD SPECIMENOrdering Facility: [facility] Address: [address] [place] [address] Performed By: #### 2 4323-8 ####[facility] LABCLIA [id number] [address] [place] ESTIMATED GLOMERULAR FILTRATION RATE 89 mL/min/1.73m??? Normal >=60 [facility] Comment on above: Order Comment: An cadena Type: BLOOD SPECIMENOrdering Facility: [facility] Address: [address] [place] [address] Result Comment: Fabiano mated Glomerular Filtration Rate (eGFR) is calculated using the 2020 CKD-EPI creatinine equation. This equation utilizes serum creatinine, sex, and age as parameters. The creatinine assay has traceable calibration to isotope dilution-mass spectrometry. Refer to KDIGO guidelines for clinical interpretation. In patients with unstable renal function, e.g. those with acute kidney injury, the eGFR may not accurately reflect actual GFR. Performed By: #### 2 4323-8 ####[facility] LABCLIA [id number] [place] [address] [place] Glucose [Mass/Vol] 96 mg/dL Normal 74-99 [facility] Comment on above: Order Comment: An cadena Type: BLOOD SPECIMENOrdering Facility: [facility] Address: [address] [place] [address] Result Comment: The [place] Diabetes Association (ADA) provides guidance for cutoff values for fasting glucose and random glucose. The ADA defines fasting as no caloric intake for at least 8 hours. Fasting plasma glucose results between 100 to 125 mg/dL indicate increased risk for diabetes (prediabetes).Fasting plasma glucose results greater than or equal to 126 mg/dL meet the criteria for diagnosis of diabetes. In the absence of unequivocal hyperglycemia, results should be confirmed by repeat testing. In a patient with classic symptoms of hyperglycemia or hyperglycemic crisis, random plasma glucose results greater than or equal to 200 mg/dL meet the criteria for diagnosis of diabetes.Reference: Standards of Medical Care in Diabetes 2016, [place] [employer]. Diabetes Care. 2016.39(Suppl 1). Performed By: #### 2 4323-8 ####[facility] LABCLIA [id number] [place] [address] [place] Potassium [Moles/Vol] 4.6 mmol/L Normal 3.7-5.1 [facility] Comment on above: Order Comment: Speci men Type: BLOOD SPECIMENOrdering Facility: [facility] Address: [address] [place] [address] Performed By: #### 2 4323-8 ####[facility] LABCLIA [id number] [place] [address] [place] Protein [Mass/Vol] 6.6 g/dL Normal 6.3-8.0 [facility] Comment on above: Order Comment: Speci men Type: BLOOD SPECIMENOrdering Facility: [facility] Address: [address] [place], [place] [address] Performed By: #### 2 4323-8 ####[facility] LABCLIA [id number] [place] [address] [place] Sodium [Moles/Vol] 133 mmol/L Low 136-144 [facility] Comment on above: Order Comment: Speci men Type: BLOOD SPECIMENOrdering Facility: [facility] Address: [address] [place] [phone] Performed By: #### 2 4323-8 ####[facility] LABCLIA [id number] [place] [address] [place] Urea nitrogen [Mass/Vol] 27 mg/dL High 9-24 [facility] Comment on above: Order Comment: Speci men Type: BLOOD SPECIMENOrdering Facility: [facility] Address: [address] [place] [address] Performed By: #### 2 4323-8 ####[facility] [id number] [place] NURSING PROGon 08-10-2021 NURSING PROG Normal [facility] PT panel Coag (PPP)on 2021 INR Coag (PPP) [Relative time] 1.3 {INR} Normal 0.9-1.3 [facility] Comment on above: Order Comment: Speci men Type: BLOOD SPECIMENOrdering Facility: [facility] Address: [address] [place] [address] Result Comment: Samnatha min K Antagonist (VKA) Therapeutic Range: INR 2 to 3 (Target INR of 2.5)Note: For patients treated with VKA drugs, such as warfarin, the [place] [employer] 2012 Guideline recommends a therapeutic INR range of 2 to 3 (target INR of 2.5). This recommendation includes high-risk patients with antiphospholipid syndrome with previous arterial or venous thromboembolism, current-generation mechanical or bioprosthetic aortic heart valve replacement.Note: Patients with mechanical aortic valve replacement and additional risk factors for thromboembolic events (atrial fibrillation, previous thromboembolism, LV dysfunction, hypercoagulable conditions) or an older generation mechanical AVR (i.e., ball in-Cage) or any mechanical MVR should have a INR therapeutic range of 2.5 to 3.5 (target INR of 3).Gerard GH, et al. Chest 2012, 141:7S-47SNishshabanaura RA, et al. [facility] 2017, 70: 252-289 Performed By: #### 3 4528-0 ####[facility] [id number] [place] [id number] [place] PT Coag (PPP) [Time] 13.5 s High 9.7-13.0 [facility] Comment on above: Order Comment: Speci men Type: BLOOD SPECIMENOrdering Facility: [facility] Address: [address] [place], [place] [address] [phone] Performed By: #### 3 4528-0 ####[facility] LABCLIA [id number] [place] [address] [place] INR Coag (PPP) [Relative time] 1.3 {INR} Normal 0.9-1.3 [facility] Comment on above: Order Comment: Speci men Type: BLOOD SPECIMENOrdering Facility: [facility] Address: [address] [place] [address] Result Comment: Samantha min K Antagonist (VKA) Therapeutic Range: INR 2 to 3 (Target INR of 2.5)Note: For patients treated with VKA drugs, such as warfarin, the [place] [employer] 2012 Guideline recommends a therapeutic INR range of 2 to 3 (target INR of 2.5). This recommendation includes high-risk patients with antiphospholipid syndrome with previous arterial or venous thromboembolism, current-generation mechanical or bioprosthetic aortic heart valve replacement.Note: Patients with mechanical aortic valve replacement and additional risk factors for thromboembolic events (atrial fibrillation, previous thromboembolism, LV dysfunction, hypercoagulable conditions) or an older generation mechanical AVR (i.e., ball in-Cage) or any mechanical MVR should have a INR therapeutic range of 2.5 to 3.5 (target INR of 3).Gerard GH, et al. Chest 2012, 141:7S-47SNishimura RA, et al. [facility] 2017, 70: 252-289 Performed By: #### 3 4528-0 ####[facility] LABCLIA [id number] [place] [address] [place] PT Coag (PPP) [Time] 13.6 s High 9.7-13.0 [facility] Comment on above: Order Comment: Speci men Type: BLOOD SPECIMENOrdering Facility: [facility] Address: [address] [place] [address] Performed By: #### 3 4528-0 ####[facility] LABCLIA [id number] [place] [address] [place] THERAPY NTon 08-10-2021 THERAPY NT Normal [facility] XR CHEST 1V FRONTAL PORTon 0 08-10-2021 XR CHEST 1V FRONTAL PORT Normal [facility] Basic metabolic 2000 panelon 08-09-2021 Anion gap [Moles/Vol] 15 mmol/L Normal 9-18 [facility] Comment on above: Order Comment: Speci men Type: BLOOD SPECIMENOrdering Facility: [facility] Address: [address] [place], [place] [address] Performed By: #### 2 4321-2 ####[facility] LABCLIA [id number] [place] [address] [place] Calcium [Mass/Vol] 9.0 mg/dL Normal 8.5-10.2 [facility] Comment on above: Order Comment: Speci men Type: BLOOD SPECIMENOrdering Facility: [facility] Address: [address] [place], [place] [address] Performed By: #### 2 4321-2 ####[facility] LABCLIA [id number] [place] [address] [place] Chloride [Moles/Vol] 96 mmol/L Low 97-105 [facility] Comment on above: Order Comment: Speci men Type: BLOOD SPECIMENOrdering Facility: [facility] Address: [address] [place] [address] Performed By: #### 2 4321-2 ####[facility] LABCLIA [id number] [place] [address] [place] CO2 [Moles/Vol] 20 mmol/L Low 22-30 [facility] Comment on above: Order Comment: Speci men Type: BLOOD SPECIMENOrdering Facility: [facility] Address: [address] [place] [address] Performed By: #### 2 4321-2 ####[facility] LABCLIA [id number] [place] [id number] [place] Creatinine [Mass/Vol] 0.75 mg/dL Normal 0.73-1.22 [facility] Comment on above: Order Comment: An cadena Type: BLOOD SPECIMENOrdering Facility: [facility] Address: [address] [phone] Performed By: #### 2 4321-2 ####[facility] LABCLIA [id number] [place] [address] [place] ESTIMATED GLOMERULAR FILTRATION RATE 93 mL/min/1.73m??? Normal >=60 [facility] Comment on above: Order Comment: Speci men Type: BLOOD SPECIMENOrdering Facility: [facility] Address: [address] [place] [address] Result Comment: Fabiano mated Glomerular Filtration Rate (eGFR) is calculated using the 2020 CKD-EPI creatinine equation. This equation utilizes serum creatinine, sex, and age as parameters. The creatinine assay has traceable calibration to isotope dilution-mass spectrometry. Refer to KDIGO guidelines for clinical interpretation. In patients with unstable renal function, e.g. those with acute kidney injury, the eGFR may not accurately reflect actual GFR. Performed By: #### 2 4321-2 ####[facility] LABCLIA [id number] [place] [address] [place] Glucose [Mass/Vol] 116 mg/dL High 74-99 [facility] Comment on above: Order Comment: An surinder Type: BLOOD SPECIMENOrdering Facility: [facility] Address: [address] [place] [address] Result Comment: The [place] Diabetes Association (ADA) provides guidance for cutoff values for fasting glucose and random glucose. The ADA defines fasting as no caloric intake for at least 8 hours. Fasting plasma glucose results between 100 to 125 mg/dL indicate increased risk for diabetes (prediabetes).Fasting plasma glucose results greater than or equal to 126 mg/dL meet the criteria for diagnosis of diabetes. In the absence of unequivocal hyperglycemia, results should be confirmed by repeat testing. In a patient with classic symptoms of hyperglycemia or hyperglycemic crisis, random plasma glucose results greater than or equal to 200 mg/dL meet the criteria for diagnosis of diabetes.Reference: Standards of Medical Care in Diabetes 2016, [place] [employer]. Diabetes Care. 2016.39(Suppl 1). Performed By: #### 2 4321-2 ####[facility] LABCLIA [id number] [place] [address] [place] Potassium [Moles/Vol] 4.8 mmol/L Normal 3.7-5.1 [facility] Comment on above: Order Comment: Speci men Type: BLOOD SPECIMENOrdering Facility: [facility] Address: [address] [place] [address] Performed By: #### 2 4321-2 ####[facility] LABIA [id number] [place] [address] [place] Sodium [Moles/Vol] 131 mmol/L Low 136-144 [facility] Comment on above: Order Comment: Speci men Type: BLOOD SPECIMENOrdering Facility: [facility] Address: [address] [place] [address] Performed By: #### 2 4321-2 ####[facility] LABCLIA [id number] [place] [address] [place] Urea nitrogen [Mass/Vol] 24 mg/dL Normal 9-24 [facility] Comment on above: Order Comment: Speci men Type: BLOOD SPECIMENOrdering Facility: [facility] Address: [address] [place] [address] Performed By: #### 2 4321-2 ####[facility] LABIA [id number] [place] [address] [place] CASE MANAGEMon 08-09-2021 CASE MANAGEM Normal [facility] CONSULT PROGon 08-09-2021 CONSULT PROG Normal [facility] PT panel Coag (PPP)on 2021 INR Coag (PPP) [Relative time] 3.1 {INR} High 0.9-1.3 [facility] Comment on above: Order Comment: Speci men Type: BLOOD SPECIMENOrdering Facility: [facility] Address: [address] [place] [phone] Result Comment: Samantha min K Antagonist (VKA) Therapeutic Range: INR 2 to 3 (Target INR of 2.5)Note: For patients treated with VKA drugs, such as warfarin, the [place] [employer] 2012 Guideline recommends a therapeutic INR range of 2 to 3 (target INR of 2.5). This recommendation includes high-risk patients with antiphospholipid syndrome with previous arterial or venous thromboembolism, current-generation mechanical or bioprosthetic aortic heart valve replacement.Note: Patients with mechanical aortic valve replacement and additional risk factors for thromboembolic events (atrial fibrillation, previous thromboembolism, LV dysfunction, hypercoagulable conditions) or an older generation mechanical AVR (i.e., ball in-Cage) or any mechanical MVR should have a INR therapeutic range of 2.5 to 3.5 (target INR of 3).Gerard CONRAD, et al. Chest 2012, 141:7S-47SNishdorene RA, et al. [facility] 2017, 70: 252-289 Performed By: #### 3 4528-0 ####[facility] [id number] [place] [address] [place] PT Coag (PPP) [Time] 30.8 s High 9.7-13.0 [facility] Comment on above: Order Comment: An cadena Type: BLOOD SPECIMENOrdering Facility: [facility] Address: [address] [place] [phone] Performed By: #### 3 4528-0 ####[facility] [id number] [place] [id number] [place] THERAPY NTon 08-09-2021 THERAPY NT Normal [facility] THERAPY NT Normal [facility] CASE MANAGEMon 08-08-2021 CASE MANAGEM Normal [facility] CBC panel Auto (Bld)on 08-08 Erythrocyte distribution width (RBC) [Ratio] 22.8 % High 11.5-15.0 [facility] Comment on above: Order Comment: An cadena Type: BLOOD SPECIMENOrdering Facility: [facility] [facility] Address: [address] [place], [place] [address] Performed By: #### 5 8410-2 ####[facility] LABCLIA [id number] [address] [place] Hematocrit (Bld) [Volume fraction] 31.4 % Low 39.0-51.0 [facility] Comment on above: Order Comment: Speci men Type: BLOOD SPECIMENOrdering Facility: [facility] Address: [address] [place], [place] [address] Performed By: #### 5 8410-2 ####[facility] LABIA [id number] [place] [address] [place] Hemoglobin (Bld) [Mass/Vol] 9.8 g/dL Low 13.0-17.0 [facility] Comment on above: Order Comment: Speci men Type: BLOOD SPECIMENOrdering Facility: [facility] Address: [address] [place], [place] [address] Performed By: #### 5 8410-2 ####[facility] LABIA [id number] [place] [address] [place] MCH (RBC) [Entitic mass] 24.7 pg Low 26.0-34.0 [facility] Comment on above: Order Comment: Speci men Type: BLOOD SPECIMENOrdering Facility: [facility] Address: [address] [place], [place] [address] Performed By: #### 5 8410-2 ####[facility] LABCLIA [id number] [place] [address] [place] MCHC (RBC) [Mass/Vol] 31.2 g/dL Normal 30.5-36.0 [facility] Comment on above: Order Comment: Speci men Type: BLOOD SPECIMENOrdering Facility: [facility] Address: [address] [place], [place] [address] Performed By: #### 5 8410-2 ####[facility] LABCLIA [id number] [place] [address] [place] MCV (RBC) [Entitic vol] 79.3 fL Low 80.0-100.0 [facility] Comment on above: Order Comment: Speci men Type: BLOOD SPECIMENOrdering Facility: [facility] Address: [address] [place], [place] [address] Performed By: #### 5 8410-2 ####[facility] LABIA [id number] [place] [address] [place] Nucleated RBC (Bld) [#/Vol] 10*3/uL Normal <0.01 [facility] Comment on above: Order Comment: Speci men Type: BLOOD SPECIMENOrdering Facility: [facility] Address: [address] [place], [place] [address] Performed By: #### 5 8410-2 ####[facility] [id number] [place] [address] [place] Platelet mean volume (Bld) [Entitic vol] 9.6 fL Normal 9.0-12.7 [facility] Comment on above: Order Comment: Speci men Type: BLOOD SPECIMENOrdering Facility: [facility] Address: [address] [place], [place] [address] Performed By: #### 5 8410-2 ####[facility] [id number] [place] [address] [place] Platelets (Bld) [#/Vol] 358 10*3/uL Normal 150-400 [facility] Comment on above: Order Comment: Speci men Type: BLOOD SPECIMENOrdering Facility: [facility] Address: [address] [place], [place] [address] Performed By: #### 5 8410-2 ####[facility] [id number] [place] [address] [place] RBC (Bld) [#/Vol] 3.96 10*6/uL Low 4.20-6.00 [facility] Comment on above: Order Comment: Speci men Type: BLOOD SPECIMENOrdering Facility: [facility] Address: [address] [place], [place] [address] Performed By: #### 5 8410-2 ####[facility] LABCLIA [id number] [place] [address] [place] WBC (Bld) [#/Vol] 7.56 10*3/uL Normal 3.70-11.00 [facility] Comment on above: Order Comment: Speci men Type: BLOOD SPECIMENOrdering Facility: [facility] Address: [address] [place], [place] [address] Performed By: #### 5 8410-2 ####[facility] LABCLIA [id number] [place] [address] [place] CONSULT PROGon 08-08-2021 CONSULT PROG Normal [facility] Comprehensive metabolic 2000 panelon 08-08-2021 Albumin [Mass/Vol] 3.1 g/dL Low 3.9-4.9 [facility] Comment on above: Order Comment: Speci men Type: BLOOD SPECIMENOrdering Facility: [facility] Address: [address] [place] [address] Performed By: #### 2 4323-8 ####[facility] LABCLIA [id number] [place] [address] [place] ALP [Catalytic activity/Vol] 150 U/L High 38-113 [facility] Comment on above: Order Comment: Speci men Type: BLOOD SPECIMENOrdering Facility: [facility] Address: [address] [place], [place] [address] Performed By: #### 2 4323-8 ####[facility] LABCLIA [id number] [place] [address] [place] ALT [Catalytic activity/Vol] 29 U/L Normal 10-54 [facility] Comment on above: Order Comment: Speci men Type: BLOOD SPECIMENOrdering Facility: [facility] Address: [address] [place], [place] [address] Performed By: #### 2 4323-8 ####[facility] LABCLIA [id number] [place] [id number] [place] Anion gap [Moles/Vol] 12 mmol/L Normal 9-18 [facility] Comment on above: Order Comment: Speci men Type: BLOOD SPECIMENOrdering Facility: [facility] Address: [address] [place], [place] [address] Performed By: #### 2 4323-8 ####[facility] LABCLIA [id number] [place] [address] [place] AST [Catalytic activity/Vol] 39 U/L Normal 14-40 [facility] Comment on above: Order Comment: Speci men Type: BLOOD SPECIMENOrdering Facility: [facility] Address: [address] [place], [place] [address] Performed By: #### 2 4323-8 ####[facility] LABCLIA [id number] [place] [address] [place] Bilirubin [Mass/Vol] 3.5 mg/dL High 0.2-1.3 [facility] Comment on above: Order Comment: Speci men Type: BLOOD SPECIMENOrdering Facility: [facility] Address: [address] [place], [place] [address] Performed By: #### 2 4323-8 ####[facility] LABCLIA [id number] [place] [address] [place] Calcium [Mass/Vol] 8.6 mg/dL Normal 8.5-10.2 [facility] Comment on above: Order Comment: Speci men Type: BLOOD SPECIMENOrdering Facility: [facility] Address: [address] [place], [place] [address] Performed By: #### 2 4323-8 ####[facility] LABCLIA [id number] [place] [address] [place] Chloride [Moles/Vol] 99 mmol/L Normal 97-105 [facility] Comment on above: Order Comment: Speci men Type: BLOOD SPECIMENOrdering Facility: [facility] Address: [address] [place] [address] Performed By: #### 2 4323-8 ####[facility] LABCLIA [id number] [place] [address] [place] CO2 [Moles/Vol] 23 mmol/L Normal 22-30 [facility] Comment on above: Order Comment: Speci men Type: BLOOD SPECIMENOrdering Facility: [facility] Address: [address] [place] [address] Performed By: #### 2 4323-8 ####[facility] LABIA [id number] [place] [address] [place] Creatinine [Mass/Vol] 0.67 mg/dL Low 0.73-1.22 [facility] Comment on above: Order Comment: Speci men Type: BLOOD SPECIMENOrdering Facility: [facility] Address: [address] [place] [address] Performed By: #### 2 4323-8 ####[facility] LABIA [id number] [address] OF [facility] ESTIMATED GLOMERULAR FILTRATION RATE 96 mL/min/1.73m??? Normal >=60 [facility] Comment on above: Order Comment: Speci men Type: BLOOD SPECIMENOrdering Facility: [facility] Address: [address] [place] [address] Result Comment: Fabiano mated Glomerular Filtration Rate (eGFR) is calculated using the 2020 CKD-EPI creatinine equation. This equation utilizes serum creatinine, sex, and age as parameters. The creatinine assay has traceable calibration to isotope dilution-mass spectrometry. Refer to KDIGO guidelines for clinical interpretation. In patients with unstable renal function, e.g. those with acute kidney injury, the eGFR may not accurately reflect actual GFR. Performed By: #### 2 4323-8 ####[facility] LABCLIA [id number] [address] [address] [place] Glucose [Mass/Vol] 102 mg/dL High 74-99 [facility] Comment on above: Order Comment: Speci men Type: BLOOD SPECIMENOrdering Facility: [facility] Address: [address] [place] [address] Result Comment: The [place] [employer] (ADA) provides guidance for cutoff values for fasting glucose and random glucose. The ADA defines fasting as no caloric intake for at least 8 hours. Fasting plasma glucose results between 100 to 125 mg/dL indicate increased risk for diabetes (prediabetes).Fasting plasma glucose results greater than or equal to 126 mg/dL meet the criteria for diagnosis of diabetes. In the absence of unequivocal hyperglycemia, results should be confirmed by repeat testing. In a patient with classic symptoms of hyperglycemia or hyperglycemic crisis, random plasma glucose results greater than or equal to 200 mg/dL meet the criteria for diagnosis of diabetes.Reference: Standards of Medical Care in Diabetes 2016, [place] [employer]. Diabetes Care. 2016.39(Suppl 1). Performed By: #### 2 4323-8 ####[facility] LABCLIA [id number] [address] [address] [place] Potassium [Moles/Vol] 4.5 mmol/L Normal 3.7-5.1 [facility] Comment on above: Order Comment: Speci men Type: BLOOD SPECIMENOrdering Facility: [facility] Address: [address] [place] [address] Performed By: #### 2 4323-8 ####[facility] LABCLIA [id number] [address] [address] [place] Protein [Mass/Vol] 5.9 g/dL Low 6.3-8.0 [facility] Comment on above: Order Comment: Speci men Type: BLOOD SPECIMENOrdering Facility: [facility] Address: [address] [place] [address] Performed By: #### 2 4323-8 ####[facility] LABCLIA [id number] [place] [address] [place] Sodium [Moles/Vol] 134 mmol/L Low 136-144 [facility] Comment on above: Order Comment: Speci men Type: BLOOD SPECIMENOrdering Facility: [facility] Address: [address] [place] [address] Performed By: #### 2 4323-8 ####[facility] LABCLIA [id number] [place] [address] [place] Urea nitrogen [Mass/Vol] 24 mg/dL Normal 9-24 [facility] Comment on above: Order Comment: Speci men Type: BLOOD SPECIMENOrdering Facility: [facility] Address: [address] [place] [address] Performed By: #### 2 4323-8 ####[facility] LABIA [id number] [place] [address] [place] NUTRITIONon 08-08-2021 NUTRITION Normal [facility] PT panel Coag (PPP)on 2021 INR Coag (PPP) [Relative time] 1.2 {INR} Normal 0.9-1.3 [facility] Comment on above: Order Comment: Speci men Type: BLOOD SPECIMENOrdering Facility: [facility] Address: [address] [place] [address] Result Comment: Samantha min K Antagonist (VKA) Therapeutic Range: INR 2 to 3 (Target INR of 2.5)Note: For patients treated with VKA drugs, such as warfarin, the [place] [employer] 2012 Guideline recommends a therapeutic INR range of 2 to 3 (target INR of 2.5). This recommendation includes high-risk patients with antiphospholipid syndrome with previous arterial or venous thromboembolism, current-generation mechanical or bioprosthetic aortic heart valve replacement.Note: Patients with mechanical aortic valve replacement and additional risk factors for thromboembolic events (atrial fibrillation, previous thromboembolism, LV dysfunction, hypercoagulable conditions) or an older generation mechanical AVR (i.e., ball in-Cage) or any mechanical MVR should have a INR therapeutic range of 2.5 to 3.5 (target INR of 3).Gerard CONRAD, et al. Chest 2012, 141:7S-47SBelén RA, et al. [facility] 2017, 70: 252-289 Performed By: #### 3 4528-0 ####[facility] LABCLIA [id number] [place] [address] [place] PT Coag (PPP) [Time] 12.6 s Normal 9.7-13.0 [facility] Comment on above: Order Comment: Speci men Type: BLOOD SPECIMENOrdering Facility: [facility] Address: [address] [place], [place] [address] Performed By: #### 3 4528-0 ####[facility] LABCLIA [id number] [place] [address] [place] THERAPY NTon 08-08-2021 THERAPY NT Normal [facility] ALLIED HEALTHon 08-07-2021 ALLIED HEALTH Normal [facility] CASE MANAGEMon 08-07-2021 CASE MANAGEM Normal [facility] CASE MANAGEM Normal [facility] CBC W Auto Differential pane l (Bld)on 08-07-2021 Basophils (Bld) [#/Vol] 0.06 10*3/uL Normal <0.11 [facility] Comment on above: Order Comment: Speci men Type: BLOOD SPECIMENOrdering Facility: [facility] Address: [address] [place] [address] Performed By: #### 5 7021-8 ####[facility] LABCLIA [id number] [place] [address] [place] Basophils/100 WBC (Bld) 0.7 % Normal [facility] Comment on above: Order Comment: Speci men Type: BLOOD SPECIMENOrdering Facility: [facility] Address: [address] [place], [place] [address] Performed By: #### 5 7021-8 ####[facility] LABCLIA [id number] [place] [address] [place] Differential cell count method Nom (Bld) Auto Normal [facility] Comment on above: Order Comment: Speci men Type: BLOOD SPECIMENOrdering Facility: [facility] Address: [address] [place], [place] [address] Performed By: #### 5 7021-8 ####[facility] LABIA [id number] [place] [address] [place] Eosinophils (Bld) [#/Vol] 0.29 10*3/uL Normal <0.46 [facility] Comment on above: Order Comment: Speci men Type: BLOOD SPECIMENOrdering Facility: [facility] Address: [address] [place], [place] [address] Performed By: #### 5 7021-8 ####[facility] LABIA [id number] [address] [place] Eosinophils/100 WBC (Bld) 3.5 % Normal [facility] Comment on above: Order Comment: Speci men Type: BLOOD SPECIMENOrdering Facility: [facility] Address: [address] [place], [place] [address] Performed By: #### 5 7021-8 ####[facility] LABIA [id number] [place] [address] [place] Erythrocyte distribution width (RBC) [Ratio] 23.1 % High 11.5-15.0 [facility] Comment on above: Order Comment: Speci men Type: BLOOD SPECIMENOrdering Facility: [facility] Address: [address] [place], [place] [address] Performed By: #### 5 7021-8 ####[facility] LABCLIA [id number] [address] STATES OF [facility] Hematocrit (Bld) [Volume fraction] 33.7 % Low 39.0-51.0 [facility] Comment on above: Order Comment: Speci men Type: BLOOD SPECIMENOrdering Facility: [facility] Address: [address] [place] [address] Performed By: #### 5 7021-8 ####[facility] LABCLIA [id number] [address] OF [facility] Hemoglobin (Bld) [Mass/Vol] 10.4 g/dL Low 13.0-17.0 [facility] Comment on above: Order Comment: Speci men Type: BLOOD SPECIMENOrdering Facility: [facility] Address: [address] [place] [address] Performed By: #### 5 7021-8 ####[facility] LABCLIA [id number] [address] OF [facility] IMMATURE GRAN % 1.2 % Normal [facility] Comment on above: Order Comment: Speci men Type: BLOOD SPECIMENOrdering Facility: [facility] Address: [address] [place] [address] Performed By: #### 5 7021-8 ####[facility] LABIA [id number] [address] STATES OF [facility] IMMATURE GRAN ABS 0.10 k/uL High <0.10 [facility] Comment on above: Order Comment: Speci men Type: BLOOD SPECIMENOrdering Facility: [facility] Address: [address] [place] [address] Performed By: #### 5 7021-8 ####[facility] LABCLIA [id number] [address] [place] Lymphocytes (Bld) [#/Vol] 1.12 10*3/uL Normal 1.00-4.00 [facility] Comment on above: Order Comment: Speci men Type: BLOOD SPECIMENOrdering Facility: [facility] Address: [address] [place], [place] [address] Performed By: #### 5 7021-8 ####[facility] [id number] [address] STATES OF [facility] Lymphocytes/100 WBC (Bld) 13.6 % Normal [facility] Comment on above: Order Comment: Speci men Type: BLOOD SPECIMENOrdering Facility: [facility] Address: [address] [place], [place] [address] Performed By: #### 5 7021-8 ####[facility] [id number] [place] [address] [place] MCH (RBC) [Entitic mass] 24.5 pg Low 26.0-34.0 [facility] Comment on above: Order Comment: Speci men Type: BLOOD SPECIMENOrdering Facility: [facility] Address: [address] [place], [place] [address] Performed By: #### 5 7021-8 ####[facility] [id number] [place] [address] [place] MCHC (RBC) [Mass/Vol] 30.9 g/dL Normal 30.5-36.0 [facility] Comment on above: Order Comment: Speci men Type: BLOOD SPECIMENOrdering Facility: [facility] Address: [address] [place] [address] Performed By: #### 5 7021-8 ####[facility] [id number] [place] [address] [place] MCV (RBC) [Entitic vol] 79.5 fL Low 80.0-100.0 [facility] Comment on above: Order Comment: Speci men Type: BLOOD SPECIMENOrdering Facility: [facility] Address: [address] [place] [address] Performed By: #### 5 7021-8 ####[facility] LABCLIA [id number] [place] [address] [place] Monocytes (Bld) [#/Vol] 0.96 10*3/uL High <0.87 [facility] Comment on above: Order Comment: Speci men Type: BLOOD SPECIMENOrdering Facility: [facility] Address: [address] [place] [address] Performed By: #### 5 7021-8 ####[facility] LABCLIA [id number] [place] [address] [place] Monocytes/100 WBC (Bld) 11.7 % Normal [facility] Comment on above: Order Comment: Speci men Type: BLOOD SPECIMENOrdering Facility: [facility] Address: [address] [place] [address] Performed By: #### 5 7021-8 ####[facility] LABCLIA [id number] [place] [address] [place] Neutrophils (Bld) [#/Vol] 5.71 10*3/uL Normal 1.45-7.50 [facility] Comment on above: Order Comment: Speci men Type: BLOOD SPECIMENOrdering Facility: [facility] Address: [address] [place], [place] [address] Performed By: #### 5 7021-8 ####[facility] LABCLIA [id number] [place] [address] [place] Neutrophils/100 WBC (Bld) 69.3 % Normal [facility] Comment on above: Order Comment: Speci men Type: BLOOD SPECIMENOrdering Facility: [facility] Address: [address] [place] [address] Performed By: #### 5 7021-8 ####[facility] LABCLIA [id number] [place] [address] [place] Nucleated RBC (Bld) [#/Vol] 10*3/uL Normal <0.01 [facility] Comment on above: Order Comment: Speci men Type: BLOOD SPECIMENOrdering Facility: [facility] Address: [address] [place], [place] [address] Performed By: #### 5 7021-8 ####[facility] LABCLIA [id number] [place] [address] [place] Nucleated RBC/100 WBC (Bld) [Ratio] 0.0 /100 WBC Normal [facility] Comment on above: Order Comment: Speci men Type: BLOOD SPECIMENOrdering Facility: [facility] Address: [address] [place], [place] [address] Performed By: #### 5 7021-8 ####[facility] LABIA [id number] [place] [address] [place] Platelet mean volume (Bld) [Entitic vol] 9.7 fL Normal 9.0-12.7 [facility] Comment on above: Order Comment: Speci men Type: BLOOD SPECIMENOrdering Facility: [facility] Address: [address] [place], [place] [address] Performed By: #### 5 7021-8 ####[facility] LABIA [id number] [place] [address] [place] Platelets (Bld) [#/Vol] 307 10*3/uL Normal 150-400 [facility] Comment on above: Order Comment: Speci men Type: BLOOD SPECIMENOrdering Facility: [facility] Address: [address] [place] [address] Performed By: #### 5 7021-8 ####[facility] LABIA [id number] [place] [address] [place] RBC (Bld) [#/Vol] 4.24 10*6/uL Normal 4.20-6.00 [facility] Comment on above: Order Comment: Speci men Type: BLOOD SPECIMENOrdering Facility: [facility] Address: [address] [place], [place] [address] Performed By: #### 5 7021-8 ####[facility] LABCLIA [id number] [place] [address] [place] WBC (Bld) [#/Vol] 8.24 10*3/uL Normal 3.70-11.00 [facility] Comment on above: Order Comment: Speci men Type: BLOOD SPECIMENOrdering Facility: [facility] Address: [address] [place], [place] [address] Performed By: #### 5 7021-8 ####[facility] LABIA [id number] [place] [address] [place] CNDSon 08-07-2021 CNDS Normal [facility] CONSULTon 08-07-2021 CONSULT Normal [facility] Comprehensive metabolic 2000 panelon 08-07-2021 Albumin [Mass/Vol] 3.3 g/dL Low 3.9-4.9 [facility] Comment on above: Order Comment: Speci men Type: BLOOD SPECIMENOrdering Facility: [facility] [facility] Address: [address] [place], [place] [address] Performed By: #### 2 4323-8 ####[facility] LABCLIA [id number] [place] [address] [place] ALP [Catalytic activity/Vol] 158 U/L High 38-113 [facility] Comment on above: Order Comment: Speci men Type: BLOOD SPECIMENOrdering Facility: [facility] Address: [address] [place] [address] Performed By: #### 2 4323-8 ####[facility] LABIA [id number] [place] [address] [place] ALT [Catalytic activity/Vol] 29 U/L Normal 10-54 [facility] Comment on above: Order Comment: Speci men Type: BLOOD SPECIMENOrdering Facility: [facility] Address: [address] [place] [address] Performed By: #### 2 4323-8 ####[facility] LABCLIA [id number] [place] [address] [place] Anion gap [Moles/Vol] 13 mmol/L Normal 9-18 [facility] Comment on above: Order Comment: Speci men Type: BLOOD SPECIMENOrdering Facility: [facility] Address: [address] [place] [address] Performed By: #### 2 4323-8 ####[facility] LABCLIA [id number] [place] [address] [place] AST [Catalytic activity/Vol] 48 U/L High 14-40 [facility] Comment on above: Order Comment: Speci men Type: BLOOD SPECIMENOrdering Facility: [facility] Address: [address] [place], [place] [address] Performed By: #### 2 4323-8 ####[facility] LABCLIA [id number] [place] [address] [place] Bilirubin [Mass/Vol] 4.2 mg/dL High 0.2-1.3 [facility] Comment on above: Order Comment: Speci men Type: BLOOD SPECIMENOrdering Facility: [facility] Address: [address] [place] [address] Performed By: #### 2 4323-8 ####[facility] LABCLIA [id number] [place] [address] [place] Calcium [Mass/Vol] 8.2 mg/dL Low 8.5-10.2 [facility] Comment on above: Order Comment: Speci men Type: BLOOD SPECIMENOrdering Facility: [facility] Address: [address] [place] [address] Performed By: #### 2 4323-8 ####[facility] LABCLIA [id number] [place] [address] [place] Chloride [Moles/Vol] 97 mmol/L Normal 97-105 [facility] Comment on above: Order Comment: Speci men Type: BLOOD SPECIMENOrdering Facility: [facility] Address: [address] [place] [address] Performed By: #### 2 4323-8 ####[facility] LABCLIA [id number] [place] [address] [place] CO2 [Moles/Vol] 26 mmol/L Normal 22-30 [facility] Comment on above: Order Comment: Speci men Type: BLOOD SPECIMENOrdering Facility: [facility] Address: [address] [place] [address] Performed By: #### 2 4323-8 ####[facility] LABCLIA [id number] [place] [address] [place] Creatinine [Mass/Vol] 0.69 mg/dL Low 0.73-1.22 [facility] Comment on above: Order Comment: Speci men Type: BLOOD SPECIMENOrdering Facility: [facility] Address: [address] [place], [place] [address] Performed By: #### 2 4323-8 ####[facility] LABCLIA [id number] [address] OF [facility] ESTIMATED GLOMERULAR FILTRATION RATE 95 mL/min/1.73m??? Normal >=60 [facility] Comment on above: Order Comment: Speci men Type: BLOOD SPECIMENOrdering Facility: [facility] Address: [address] [place], [place] [address] Result Comment: Fabiano mated Glomerular Filtration Rate (eGFR) is calculated using the 2020 CKD-EPI creatinine equation. This equation utilizes serum creatinine, sex, and age as parameters. The creatinine assay has traceable calibration to isotope dilution-mass spectrometry. Refer to KDIGO guidelines for clinical interpretation. In patients with unstable renal function, e.g. those with acute kidney injury, the eGFR may not accurately reflect actual GFR. Performed By: #### 2 4323-8 ####[facility] LABCLIA [id number] [place] [address] [place] Glucose [Mass/Vol] 94 mg/dL Normal 74-99 [facility] Comment on above: Order Comment: Speci men Type: BLOOD SPECIMENOrdering Facility: [facility] Address: [address] [place] [address] Result Comment: The [place] Diabetes Association (ADA) provides guidance for cutoff values for fasting glucose and random glucose. The ADA defines fasting as no caloric intake for at least 8 hours. Fasting plasma glucose results between 100 to 125 mg/dL indicate increased risk for diabetes (prediabetes).Fasting plasma glucose results greater than or equal to 126 mg/dL meet the criteria for diagnosis of diabetes. In the absence of unequivocal hyperglycemia, results should be confirmed by repeat testing. In a patient with classic symptoms of hyperglycemia or hyperglycemic crisis, random plasma glucose results greater than or equal to 200 mg/dL meet the criteria for diagnosis of diabetes.Reference: Standards of Medical Care in Diabetes 2016, [place] Diabetes Association. Diabetes Care. 2016.39(Suppl 1). Performed By: #### 2 4323-8 ####[facility] LABIA [id number] [place] [address] [place] Potassium [Moles/Vol] 4.5 mmol/L Normal 3.7-5.1 [facility] Comment on above: Order Comment: Speci men Type: BLOOD SPECIMENOrdering Facility: [facility] Address: [address] [place] [place] [address] Performed By: #### 2 4323-8 ####[facility] LABIA [id number] [place] [address] [place] Protein [Mass/Vol] 5.2 g/dL Low 6.3-8.0 [facility] Comment on above: Order Comment: Speci men Type: BLOOD SPECIMENOrdering Facility: [facility] Address: [address] [place] [address] Performed By: #### 2 4323-8 ####[facility] LABCLIA [id number] [place] [address] [place] Sodium [Moles/Vol] 136 mmol/L Normal 136-144 [facility] Comment on above: Order Comment: Speci men Type: BLOOD SPECIMENOrdering Facility: [facility] Address: [address] [place] [address] Performed By: #### 2 4323-8 ####[facility] LABIA [id number] [place] [address] [place] Urea nitrogen [Mass/Vol] 21 mg/dL Normal 9-24 [facility] Comment on above: Order Comment: Speci men Type: BLOOD SPECIMENOrdering Facility: [facility] Address: [address] [place] [address] Performed By: #### 2 4323-8 ####[facility] [id number] [place] [address] [place] HGB A1Con 08-07-2021 Average glucose Estimated from glycated hemoglobin (Bld) [Mass/Vol] 105 mg/dL Normal [facility] Comment on above: Order Comment: Speci men Type: BLOOD SPECIMENOrdering Facility: [facility] Address: [address] [place] [address] Result Comment: eAG: (Estimated average glucose) is a calculated value from HgbA1c and is quality assurance representative of the average blood glucose level in the last 2-3 month period. Performed By: #### H BA1C ####[facility] [id number] [place] [address] [place] HbA1c (Bld) [Mass fraction] 5.3 % Normal 4.3-5.6 [facility] Comment on above: Order Comment: Speci men Type: BLOOD SPECIMENOrdering Facility: [facility] Address: [address] [place] [address] Result Comment: [place] Diabetes Association guidelines indicate that patients with HgbA1c in the range 5.7-6.4% are at increased risk for development of diabetes, and intervention by lifestyle modification may be beneficial. HgbA1c greater or equal to 6.5% is considered diagnostic of diabetes. Performed By: #### H BA1C ####[facility] LABCLIA [id number] [place] [address] [place] LDH SerPl-cCncon 08-07-2021 LDH [Catalytic activity/Vol] 313 U/L High 135-225 [facility] Comment on above: Order Comment: An cadena Type: BLOOD SPECIMENOrdering Facility: [facility] Address: [address] [place] [address] Performed By: #### 2 532-0 ####[facility] LABCLIA [id number] [place] [address] [place] NURSING PROGon 08-07-2021 NURSING PROG Normal [facility] PT panel Coag (PPP)on 2021 INR Coag (PPP) [Relative time] 1.2 {INR} Normal 0.9-1.3 [facility] Comment on above: Order Comment: An cadena Type: BLOOD SPECIMENOrdering Facility: [facility] Address: [address] [place] [address] Result Comment: Samantha min K Antagonist (VKA) Therapeutic Range: INR 2 to 3 (Target INR of 2.5)Note: For patients treated with VKA drugs, such as warfarin, the [place] [employer] 2012 Guideline recommends a therapeutic INR range of 2 to 3 (target INR of 2.5). This recommendation includes high-risk patients with antiphospholipid syndrome with previous arterial or venous thromboembolism, current-generation mechanical or bioprosthetic aortic heart valve replacement.Note: Patients with mechanical aortic valve replacement and additional risk factors for thromboembolic events (atrial fibrillation, previous thromboembolism, LV dysfunction, hypercoagulable conditions) or an older generation mechanical AVR (i.e., ball in-Cage) or any mechanical MVR should have a INR therapeutic range of 2.5 to 3.5 (target INR of 3).Guyatt GH, et al. Chest 2012, 141:7S-47SNishimura RA, et al. [facility] 2017, 70: 252-289 Performed By: #### 3 4528-0 ####[facility] LABCLIA [id number] [place] [address] [place] PT Coag (PPP) [Time] 12.8 s Normal 9.7-13.0 [facility] Comment on above: Order Comment: Speci men Type: BLOOD SPECIMENOrdering Facility: [facility] Address: [address] [place] [address] Performed By: #### 3 4528-0 ####[facility] LABIA [id number] [address] [place] THERAPY NTon 08-07-2021 THERAPY NT Normal [facility] XR CHEST 1V FRONTAL PORTon 0 08-07-2021 XR CHEST 1V FRONTAL PORT Normal [facility] aPTT PPPon 08-07-2021 aPTT Coag (PPP) [Time] 30.8 s Normal 23.0-32.4 [facility] Comment on above: Order Comment: Speci men Type: BLOOD SPECIMENOrdering Facility: [facility] Address: [address] [place] [address] Performed By: #### 1 4979-9 ####[facility] LABIA [id number] [address] [place] ALLIED HEALTHon 08-06-2021 ALLIED HEALTH Normal [facility] ARTERIAL BLOOD GASESon 08-06 Base excess Calc (Bld) [Moles/Vol] 4 mmol/L High 0-2 [facility] Comment on above: Order Comment: Speci men Type: ARTERIAL BLOOD SPECIMENOrdering Facility: [facility] Address: [address] [place] [address] Performed By: #### A LLBG ####[facility] LABCLIA [id number] [address] [place] Body temperature 98.24 [degF] Normal [facility] Comment on above: Order Comment: Speci men Type: ARTERIAL BLOOD SPECIMENOrdering Facility: [facility] Address: [address] [place], [place] [address] Performed By: #### A LLBG ####[facility] LABIA [id number] [place] [address] [place] CALCIUM IONIZED, PH CORRECTED 1.16 mmol/L Normal 1.08-1.30 [facility] Comment on above: Order Comment: Speci men Type: ARTERIAL BLOOD SPECIMENOrdering Facility: [facility] Address: [address] [place] [address] Performed By: #### A LLBG ####[facility] LABIA [id number] [place] [address] [place] Calcium.ionized (Bld) [Mass/Vol] 1.12 mmol/L Normal 1.08-1.30 [facility] Comment on above: Order Comment: Speci men Type: ARTERIAL BLOOD SPECIMENOrdering Facility: [facility] Address: [address] [place], [place] [address] Performed By: #### A LLBG ####[facility] LABIA [id number] [address] [place] Carboxyhemoglobin (BldA) [Mass fraction] 1.7 % Normal 0.0-2.0 [facility] Comment on above: Order Comment: Speci men Type: ARTERIAL BLOOD SPECIMENOrdering Facility: [facility] Address: [address] [place], [place] [address] Result Comment: Carb oxyhemoglobin Reference Range for Smokers: 2.0-8.0% Performed By: #### A LLBG ####[facility] LABCLIA [id number] [place] [address] [place] CO2 (Bld) [Partial pressure] 38 mm Hg Normal 36-46 [facility] Comment on above: Order Comment: Speci men Type: ARTERIAL BLOOD SPECIMENOrdering Facility: [facility] Address: [address] [place] [address] Performed By: #### A LLBG ####[facility] LABCLIA [id number] [place] [address] [place] CO2 [Moles/Vol] 29 mmol/L High 22-28 [facility] Comment on above: Order Comment: Speci men Type: ARTERIAL BLOOD SPECIMENOrdering Facility: [facility] Address: [address] [place] [address] Performed By: #### A LLBG ####[facility] LABCLIA [id number] [place] [address] [place] CO2 adjusted to patient's actual temperature (Bld) [Partial pressure] 38 mmHg Normal 36-46 [facility] Comment on above: Order Comment: Speci men Type: ARTERIAL BLOOD SPECIMENOrdering Facility: [facility] Address: [address] [place] [address] Performed By: #### A LLBG ####[facility] LABCLIA [id number] [place] [address] [place] Glucose [Mass/Vol] 114 mg/dL High 60-105 [facility] Comment on above: Order Comment: Speci men Type: ARTERIAL BLOOD SPECIMENOrdering Facility: [facility] Address: [address] [place] [address] Performed By: #### A LLBG ####[facility] LABCLIA [id number] [place] [id number] [place] HCO3 (Bld) [Moles/Vol] 28 mmol/L High 22-26 [facility] Comment on above: Order Comment: Speci men Type: ARTERIAL BLOOD SPECIMENOrdering Facility: [facility] Address: [address] [place], [place] [address] Performed By: #### A LLBG ####[facility] LABCLIA [id number] [place] [address] [place] Hematocrit (Bld) [Volume fraction] 31.4 % Low 39.0-51.0 [facility] Comment on above: Order Comment: Speci men Type: ARTERIAL BLOOD SPECIMENOrdering Facility: [facility] Address: [address] [place], [place] [id number] Performed By: #### A LLBG ####[facility] [id number] [place] [address] [place] Hemoglobin (Bld) [Mass/Vol] 10.2 g/dL Low 13.0-17.0 [facility] Comment on above: Order Comment: Speci men Type: ARTERIAL BLOOD SPECIMENOrdering Facility: [facility] Address: [address] [place], [place] [address] Performed By: #### A LLBG ####[facility] [id number] [place] [address] [place] Lactate [Moles/Vol] 1.3 mmol/L Normal 0.5-2.2 [facility] Comment on above: Order Comment: Speci men Type: ARTERIAL BLOOD SPECIMENOrdering Facility: [facility] Address: [address] [place], [place] [id number] Performed By: #### A LLBG ####[facility] [id number] [place] [address] [place] Methemoglobin (Bld) [Mass fraction] 1.1 % Normal 0.0-1.5 [facility] Comment on above: Order Comment: Speci men Type: ARTERIAL BLOOD SPECIMENOrdering Facility: [facility] Address: [address] [place] [address] Performed By: #### A LLBG ####[facility] [id number] [place] [address] [place] O2 THERAPY RA=Room Air Normal [facility] Comment on above: Order Comment: Speci men Type: ARTERIAL BLOOD SPECIMENOrdering Facility: [facility] Address: [address] [phone] Performed By: #### A LLBG ####[facility] LABCLIA [id number] [address] [address] [place] Oxygen (Bld) [Partial pressure] 89 mm Hg Normal 85-95 [facility] Comment on above: Order Comment: Speci men Type: ARTERIAL BLOOD SPECIMENOrdering Facility: [facility] Address: [address] [phone] Performed By: #### A LLBG ####[facility] LABCLIA [id number] [place] [address] [place] Oxygen adjusted to patient's actual temperature (Bld) [Partial pressure] 88 mmHg Normal 85-95 [facility] Comment on above: Order Comment: Speci men Type: ARTERIAL BLOOD SPECIMENOrdering Facility: [facility] Address: [address] [place] [address] Performed By: #### A LLBG ####[facility] LABCLIA [id number] [place] [id number] [place] OXYGEN SATURATION, ARTERIAL 97 % Normal 95-98 [facility] Comment on above: Order Comment: Speci men Type: ARTERIAL BLOOD SPECIMENOrdering Facility: [facility] Address: [address] [place] [address] Performed By: #### A LLBG ####[facility] LABCLIA [id number] [place] [id number] [place] Oxyhemoglobin (BldA) [Mass fraction] 95 % Normal 95-98 [facility] Comment on above: Order Comment: Speci men Type: ARTERIAL BLOOD SPECIMENOrdering Facility: [facility] Address: [address] [phone] Performed By: #### A LLBG ####[facility] LABCLIA [id number] [place] [address] [place] pH (Bld) 7.48 [pH] High 7.35-7.45 [facility] Comment on above: Order Comment: Speci men Type: ARTERIAL BLOOD SPECIMENOrdering Facility: [facility] Address: [address] [place] [address] Performed By: #### A LLBG ####[facility] LABIA [id number] [place] [address] [place] pH adjusted to patient's actual temperature (Bld) 7.48 High 7.35-7.45 [facility] Comment on above: Order Comment: Speci men Type: ARTERIAL BLOOD SPECIMENOrdering Facility: [facility] Address: [address] [place] [address] Performed By: #### A LLBG ####[facility] [id number] [place] [address] [place] Potassium [Moles/Vol] 4.0 mmol/L Normal 3.5-5.0 [facility] Comment on above: Order Comment: Speci men Type: ARTERIAL BLOOD SPECIMENOrdering Facility: [facility] Address: [address] [place], [place] [address] Performed By: #### A LLBG ####[facility] [id number] [place] [address] [place] Sodium [Moles/Vol] 134 mmol/L Low 136-144 [facility] Comment on above: Order Comment: Speci men Type: ARTERIAL BLOOD SPECIMENOrdering Facility: [facility] Address: [address] [place], [place] [phone] Performed By: #### A LLBG ####[facility] LABIA [id number] [place] [address] [place] Base excess Calc (Bld) [Moles/Vol] 5 mmol/L High 0-2 [facility] Comment on above: Order Comment: Speci men Type: ARTERIAL BLOOD SPECIMENOrdering Facility: [facility] Address: [address] [place], [place] [phone] Performed By: #### A LLBG ####[facility] LABCLIA [id number] [place] [address] [place] Body temperature 98.6 [degF] Normal [facility] Comment on above: Order Comment: Speci men Type: ARTERIAL BLOOD SPECIMENOrdering Facility: [facility] Address: [address] [place], [place] [phone] Performed By: #### A LLBG ####[facility] LABIA [id number] [place] [address] [place] CALCIUM IONIZED, PH CORRECTED 1.15 mmol/L Normal 1.08-1.30 [facility] Comment on above: Order Comment: Speci men Type: ARTERIAL BLOOD SPECIMENOrdering Facility: [facility] Address: [address] [place], [place] [phone] Performed By: #### A LLBG ####[facility] LABIA [id number] [place] [address] [place] Calcium.ionized (Bld) [Mass/Vol] 1.10 mmol/L Normal 1.08-1.30 [facility] Comment on above: Order Comment: Speci men Type: ARTERIAL BLOOD SPECIMENOrdering Facility: [facility] Address: [address] [place], [place] [address] Performed By: #### A LLBG ####[facility] LABIA [id number] [place] [address] [place] Carboxyhemoglobin (BldA) [Mass fraction] 2.2 % High 0.0-2.0 [facility] Comment on above: Order Comment: Speci men Type: ARTERIAL BLOOD SPECIMENOrdering Facility: [facility] Address: [address] [place], [place] [phone] Result Comment: Carb oxyhemoglobin Reference Range for Smokers: 2.0-8.0% Performed By: #### A LLBG ####[facility] LABCLIA [id number] [place] [address] [place] CO2 (Bld) [Partial pressure] 38 mm Hg Normal 36-46 [facility] Comment on above: Order Comment: Speci men Type: ARTERIAL BLOOD SPECIMENOrdering Facility: [facility] Address: [address] [place] [address] Performed By: #### A LLBG ####[facility] LABCLIA [id number] [place] [address] [place] CO2 [Moles/Vol] 30 mmol/L High 22-28 [facility] Comment on above: Order Comment: Speci men Type: ARTERIAL BLOOD SPECIMENOrdering Facility: [facility] Address: [address] [place], [place] [id number] Performed By: #### A LLBG ####[facility] LABCLIA [id number] [place] [address] [place] Glucose [Mass/Vol] 104 mg/dL Normal 60-105 [facility] Comment on above: Order Comment: Speci men Type: ARTERIAL BLOOD SPECIMENOrdering Facility: [facility] [facility] Address: [address] [place], [place] [address] Performed By: #### A LLBG ####[facility] LABCLIA [id number] [place] [address] [place] HCO3 (Bld) [Moles/Vol] 28 mmol/L High 22-26 [facility] Comment on above: Order Comment: Speci men Type: ARTERIAL BLOOD SPECIMENOrdering Facility: [facility] Address: [address] [place], [place] [address] Performed By: #### A LLBG ####[facility] LABCLIA [id number] [address] [id number] [address] [place] Hematocrit (Bld) [Volume fraction] 29.3 % Low 39.0-51.0 [facility] Comment on above: Order Comment: Speci men Type: ARTERIAL BLOOD SPECIMENOrdering Facility: [facility] Address: [address] [place], [place] [address] Performed By: #### A LLBG ####[facility] LABCLIA [id number] [place] [address] [place] Hemoglobin (Bld) [Mass/Vol] 9.5 g/dL Low 13.0-17.0 [facility] Comment on above: Order Comment: Speci men Type: ARTERIAL BLOOD SPECIMENOrdering Facility: [facility] Address: [address] [place], [place] [address] Performed By: #### A LLBG ####[facility] LABCLIA [id number] [address] [place] Lactate [Moles/Vol] 1.0 mmol/L Normal 0.5-2.2 [facility] Comment on above: Order Comment: Speci men Type: ARTERIAL BLOOD SPECIMENOrdering Facility: [facility] Address: [address] [place], [place] [address] Performed By: #### A LLBG ####[facility] LABCLIA [id number] [place] [address] [place] Methemoglobin (Bld) [Mass fraction] 0.4 % Normal 0.0-1.5 [facility] Comment on above: Order Comment: Speci men Type: ARTERIAL BLOOD SPECIMENOrdering Facility: [facility] Address: [address] [place], [place] [address] Performed By: #### A LLBG ####[facility] LABCLIA [id number] [place] [address] [place] O2 THERAPY RA=Room Air Normal [facility] Comment on above: Order Comment: Speci men Type: ARTERIAL BLOOD SPECIMENOrdering Facility: [facility] Address: [address] [place], [place] [address] Performed By: #### A LLBG ####[facility] LABCLIA [id number] [place] [address] [place] Oxygen (Bld) [Partial pressure] 83 mm Hg Low 85-95 [facility] Comment on above: Order Comment: Speci men Type: ARTERIAL BLOOD SPECIMENOrdering Facility: [facility] Address: [address] [place], [place] [address] Performed By: #### A LLBG ####[facility] LABIA [id number] [place] [address] [place] OXYGEN SATURATION, ARTERIAL 97 % Normal 95-98 [facility] Comment on above: Order Comment: Speci men Type: ARTERIAL BLOOD SPECIMENOrdering Facility: [facility] Address: [address] [place], [place] [address] Performed By: #### A LLBG ####[facility] LABIA [id number] [place] [address] [place] Oxyhemoglobin (BldA) [Mass fraction] 95 % Normal 95-98 [facility] Comment on above: Order Comment: Speci men Type: ARTERIAL BLOOD SPECIMENOrdering Facility: [facility] Address: [address] [place], [place] [address] Performed By: #### A LLBG ####[facility] LABIA [id number] [place] [address] [place] pH (Bld) 7.48 [pH] High 7.35-7.45 [facility] Comment on above: Order Comment: Speci men Type: ARTERIAL BLOOD SPECIMENOrdering Facility: [facility] Address: [address] [place], [place] [address] Performed By: #### A LLBG ####[facility] LABIA [id number] [place] [address] [place] Potassium [Moles/Vol] 3.9 mmol/L Normal 3.5-5.0 [facility] Comment on above: Order Comment: Speci men Type: ARTERIAL BLOOD SPECIMENOrdering Facility: [facility] Address: [address] [place], [place] [address] Performed By: #### A LLBG ####[facility] LABCLIA [id number] [place] [address] [place] Sodium [Moles/Vol] 133 mmol/L Low 136-144 [facility] Comment on above: Order Comment: Speci men Type: ARTERIAL BLOOD SPECIMENOrdering Facility: [facility] Address: [address] [place] [address] Performed By: #### A LLBG ####[facility] LABCLIA [id number] [place] [address] [place] CASE MANAGEMon 08-06-2021 CASE MANAGEM Normal [facility] CASE MGT INIT ASSESon 2021 CASE MGT INIT ASSES Normal [facility] CBC panel Auto (Bld)on 08-06 Hematocrit (Bld) [Volume fraction] 30.8 % Low 39.0-51.0 [facility] Comment on above: Order Comment: Speci men Type: BLOOD SPECIMENOrdering Facility: [facility] Address: [address] [place], [place] [address] Performed By: #### 5 8410-2 ####[facility] LABCLIA [id number] [place] [address] [place] RBC (Bld) [#/Vol] 4.00 10*6/uL Low 4.20-6.00 [facility] Comment on above: Order Comment: Speci men Type: BLOOD SPECIMENOrdering Facility: [facility] Address: [address] [place] [address] Performed By: #### 5 8410-2 ####[facility] LABCLIA [id number] [place] [address] [place] Comprehensive metabolic 2000 panelon 08-06-2021 Albumin [Mass/Vol] 2.9 g/dL Low 3.9-4.9 [facility] Comment on above: Order Comment: Speci men Type: BLOOD SPECIMENOrdering Facility: [facility] Address: [address] [place] [address] Performed By: #### 2 4323-8, 2777-, ####[facility] LABCLIA [id number] [place] [address] [place] ALP [Catalytic activity/Vol] 145 U/L High 38-113 [facility] Comment on above: Order Comment: Speci men Type: BLOOD SPECIMENOrdering Facility: [facility] Address: [address] [place] [address] Performed By: #### 2 4323-8, 2777, ####[facility] LABIA [id number] [address] [place] ALT [Catalytic activity/Vol] 24 U/L Normal 10-54 [facility] Comment on above: Order Comment: Speci men Type: BLOOD SPECIMENOrdering Facility: [facility] Address: [address] [place] [address] Performed By: #### 2 4323-8, 2777-1, ####[facility] LABCLIA [id number] [place] [id number] [place] Anion gap [Moles/Vol] 7 mmol/L Low 9-18 [facility] Comment on above: Order Comment: Speci men Type: BLOOD SPECIMENOrdering Facility: [facility] Address: [address] [place] [address] Performed By: #### 2 4323-8, 2777-1, ####[facility] LABCLIA [id number] [place] [address] [place] AST [Catalytic activity/Vol] 38 U/L Normal 14-40 [facility] Comment on above: Order Comment: Speci men Type: BLOOD SPECIMENOrdering Facility: [facility] Address: [address] [place], [place] [address] Performed By: #### 2 4323-8, 2777-1, ####[facility] LABCLIA [id number] [place] [address] [place] Bilirubin [Mass/Vol] 4.0 mg/dL High 0.2-1.3 [facility] Comment on above: Order Comment: Speci men Type: BLOOD SPECIMENOrdering Facility: [facility] Address: [address] [place], [place] [address] Performed By: #### 2 4323-8, 2777, ####[facility] LABCLIA [id number] [place] [address] [place] Calcium [Mass/Vol] 8.4 mg/dL Low 8.5-10.2 [facility] Comment on above: Order Comment: Speci men Type: BLOOD SPECIMENOrdering Facility: [facility] Address: [address] [place], [place] [address] Performed By: #### 2 4323-8, 2777, ####[facility] LABCLIA [id number] [place] [address] [place] Chloride [Moles/Vol] 97 mmol/L Normal 97-105 [facility] Comment on above: Order Comment: Speci men Type: BLOOD SPECIMENOrdering Facility: [facility] Address: [address] [place] [address] Performed By: #### 2 4323-8, 2777-1, ####[facility] LABCLIA [id number] [place] [id number] [place] CO2 [Moles/Vol] 28 mmol/L Normal 22-30 [facility] Comment on above: Order Comment: Speci men Type: BLOOD SPECIMENOrdering Facility: [facility] Address: [address] [place] [address] Performed By: #### 2 4323-8, 277-, ####[facility] LABCLIA [id number] [place] [address] [place] Creatinine [Mass/Vol] 0.61 mg/dL Low 0.73-1.22 [facility] Comment on above: Order Comment: Cmi men Type: BLOOD SPECIMENOrdering Facility: [facility] Address: [address] [place] [address] Performed By: #### 2 4323-8, 2776-03, ####[facility] LABCLIA [id number] [address] STATES OF [facility] ESTIMATED GLOMERULAR FILTRATION RATE 99 mL/min/1.73m??? Normal >=60 [facility] Comment on above: Order Comment: An men Type: BLOOD SPECIMENOrdering Facility: [facility] Address: [address] [place] [address] Result Comment: Fabiano mated Glomerular Filtration Rate (eGFR) is calculated using the 2020 CKD-EPI creatinine equation. This equation utilizes serum creatinine, sex, and age as parameters. The creatinine assay has traceable calibration to isotope dilution-mass spectrometry. Refer to KDIGO guidelines for clinical interpretation. In patients with unstable renal function, e.g. those with acute kidney injury, the eGFR may not accurately reflect actual GFR. Performed By: #### 2 4323-8, 2776-03, ####[facility] LABCLIA [id number] [place] [id number] [place] Glucose [Mass/Vol] 105 mg/dL High 74-99 [facility] Comment on above: Order Comment: Cmi men Type: BLOOD SPECIMENOrdering Facility: [facility] Address: [address] [place] [address] Result Comment: The [place] Diabetes Association (ADA) provides guidance for cutoff values for fasting glucose and random glucose. The ADA defines fasting as no caloric intake for at least 8 hours. Fasting plasma glucose results between 100 to 125 mg/dL indicate increased risk for diabetes (prediabetes).Fasting plasma glucose results greater than or equal to 126 mg/dL meet the criteria for diagnosis of diabetes. In the absence of unequivocal hyperglycemia, results should be confirmed by repeat testing. In a patient with classic symptoms of hyperglycemia or hyperglycemic crisis, random plasma glucose results greater than or equal to 200 mg/dL meet the criteria for diagnosis of diabetes.Reference: Standards of Medical Care in Diabetes 2016, [place] [employer] Association. Diabetes Care. 2016.39(Suppl 1). Performed By: #### 2 4323-8, 2776-03, ####[facility] LABCLIA [id number] [place] [address] [place] Potassium [Moles/Vol] 4.1 mmol/L Normal 3.7-5.1 [facility] Comment on above: Order Comment: Speci men Type: BLOOD SPECIMENOrdering Facility: [facility] Address: [address] [place] [phone] Performed By: #### 2 4323-8, 2776-03, ####[facility] LABCLIA [id number] [place] [address] [place] Protein [Mass/Vol] 5.6 g/dL Low 6.3-8.0 [facility] Comment on above: Order Comment: Speci men Type: BLOOD SPECIMENOrdering Facility: [facility] Address: [address] [place] [phone] Performed By: #### 2 4323-8, 2776-03, ####[facility] LABCLIA [id number] [address] [address] [place] Sodium [Moles/Vol] 132 mmol/L Low 136-144 [facility] Comment on above: Order Comment: Speci men Type: BLOOD SPECIMENOrdering Facility: [facility] Address: [address] [place] [address] Performed By: #### 2 4323-8, 277-, ####[facility] LABCLIA [id number] [place] [address] [place] Urea nitrogen [Mass/Vol] 22 mg/dL Normal 9-24 [facility] Comment on above: Order Comment: Speci men Type: BLOOD SPECIMENOrdering Facility: [facility] Address: [address] [place] [address] Performed By: #### 2 4323-8, 277-, ####[facility] LABCLIA [id number] [place] [address] [place] DIGOXIN/LANOXINon 08-06-2021 Digoxin [Mass/Vol] 0.7 ng/mL Normal 0.6-1.2 [facility] Comment on above: Order Comment: [facility] Type: BLOOD SPECIMENOrdering Facility: [facility] Address: [address] [place] [address] Result Comment: Prov ided therapeutic concentrations are based on the 2008 ESC Guidelines for the Diagnosis and Treatment of Acute and Chronic Heart Failure.Reference ranges and high/low indicator flags are provided as general guidelines only. The treating physician must determine appropriate target levels/dosing based on the specific clinical situation. Performed By: #### D IG ####[facility] LABCLIA [id number] [place] [address] [place] HCV RNA FAMILIA+probe Qnon 08-06 HBV surface Ag Ql (S) Negative Normal Negative [facility] Comment on above: Order Comment: Speci men Type: BLOOD SPECIMENOrdering Facility: [facility] Address: [place] [address] Performed By: #### 1 1011-4 ####[facility] LABCLIA [id number] [place] [address] [place] HCV Ab Ql (S) Negative Normal Negative [facility] Comment on above: Order Comment: Speci men Type: BLOOD SPECIMENOrdering Facility: [facility] Address: [place] [address] Result Comment: The result suggests no evidence of active infection with Hepatitis C virus. Should recent infection be suspected, repeat testing may be considered 4-6 weeks after this draw. Performed By: #### 1 1011-4 ####[facility] LABCLIA [id number] [place] [address] [place] HIV 1 and 2 Ab IA.rapid Nom Normal [facility] Comment on above: Order Comment: Speci men Type: BLOOD SPECIMENOrdering Facility: [facility] Address: [place] [address] Result Comment: Test not indicated. Performed By: #### 1 1011-4 ####[facility] LABCLIA [id number] [address] [place] HIV 1+2 Ab+HIV1 p24 Ag IA Ql Non-Reactive Normal Nonreactive [facility] Comment on above: Order Comment: Speci men Type: BLOOD SPECIMENOrdering Facility: [facility] Address: [place] [address] Performed By: #### 1 1011-4 ####[facility] LABCLIA [id number] [place] [address] [place] HIVINT Normal [facility] Comment on above: Order Comment: Speci men Type: BLOOD SPECIMENOrdering Facility: [facility] Address: [place] [address] Result Comment: No e vidence of HIV-1 or HIV-2 infection. Should recent infection be suspected, repeat testing may be considered 2-3 weeks after this draw.[place] Rev. Code 3701.243(E): This information has been disclosed to you from confidential records protected from disclosure by state law. ???You shall make no further disclosure of this information without the specific, written, and informed release of the individual to whom it pertains or as otherwise permitted by state law. A general authorization for the release of medical or other information is not sufficient for the purpose of the release of HIV test results or diagnoses. Performed By: #### 1 1011-4 ####[facility]ALTH[facility] [id number] [place] [address] [place] HIV1+2 Ab Ser Qlon 2 HIV 1+2 Ab Ql (S) Negative Normal Non-Reacti ve : Negative for both HIV1 and HIV2 antibodies. [facility] Comment on above: Order Comment: Speci men Type: BLOOD SPECIMENOrdering Facility: [facility] Address: [place] [address] Result Comment: A no n-reactive result does not preclude the possibility of exposure to HIV or infection with HIV. An antibody response to recent exposure may take several weeks to reach detectable levels with this assay.Performed by the [employer] Rapid HIV-1/2 Antibody Test.HIV Information: [place] Rev. Code 3701.243(E):This information has been disclosed to you from confidential records protected from disclosure by state law. You shall make no further disclosure of this information without the specific, written, and informed release of the individual to whom it pertains, or as otherwise permitted by state law. A general authorization for the release of medical or other information is not sufficient for the purpose of the release of HIV test results or diagnoses. Performed By: #### 7 918-6 ####[facility] [id number] [place] [address] [place] Magnesium SerPl-mCncon 08-06 Magnesium [Mass/Vol] 2.2 mg/dL Normal 1.7-2.3 [facility] Comment on above: Order Comment: Speci men Type: BLOOD SPECIMENOrdering Facility: [facility] Address: [address] [place] [phone] Performed By: #### 2 4323-8, 2777-1, 10185-0 ####[facility] LABIA [id number] [place] [address] [place] PT panel Coag (PPP)on 2021 INR Coag (PPP) [Relative time] 1.3 {INR} Normal 0.9-1.3 [facility] Comment on above: Order Comment: An cadena Type: BLOOD SPECIMENOrdering Facility: [facility] Address: [address] [place], [place] [address] Result Comment: Samantha min K Antagonist (VKA) Therapeutic Range: INR 2 to 3 (Target INR of 2.5)Note: For patients treated with VKA drugs, such as warfarin, the [place] [employer] 2012 Guideline recommends a therapeutic INR range of 2 to 3 (target INR of 2.5). This recommendation includes high-risk patients with antiphospholipid syndrome with previous arterial or venous thromboembolism, current-generation mechanical or bioprosthetic aortic heart valve replacement.Note: Patients with mechanical aortic valve replacement and additional risk factors for thromboembolic events (atrial fibrillation, previous thromboembolism, LV dysfunction, hypercoagulable conditions) or an older generation mechanical AVR (i.e., ball in-Cage) or any mechanical MVR should have a INR therapeutic range of 2.5 to 3.5 (target INR of 3).Mickitt GH, et al. Chest 2012, 141:7S-47SNishimura RA, et al. [facility] 2017, 70: 252-289 Performed By: #### 3 4528-0, 68661-3 ####[facility] LABIA [id number] [place] [address] [place] PT Coag (PPP) [Time] 13.1 s High 9.7-13.0 [facility] Comment on above: Order Comment: An cadena Type: BLOOD SPECIMENOrdering Facility: [facility] Address: [address] [place] [address] Performed By: #### 3 4528-0, 74650-9 ####[facility] LABIA [id number] [place] [id number] [place] Phosphate SerPl-mCncon 08-06 Phosphate [Mass/Vol] 3.4 mg/dL Normal 2.7-4.8 [facility] Comment on above: Order Comment: Speci men Type: BLOOD SPECIMENOrdering Facility: [facility] Address: [address] [place], [place] [address] Performed By: #### 2 4323-8, 2777-1, 53015-6 ####[facility] LABCLIA [id number] [place] [address] [place] THERAPY NTon 08-06-2021 THERAPY NT Normal [facility] XR CHEST 1V FRONTAL PORTon 0 08-06-2021 XR CHEST 1V FRONTAL PORT Normal [facility] aPTT PPPon 08-06-2021 aPTT Coag (PPP) [Time] 32.2 s Normal 23.0-32.4 [facility] Comment on above: Order Comment: Speci men Type: BLOOD SPECIMENOrdering Facility: [facility] Address: [address] [place], [place] [address] [address] Performed By: #### 3 4528-0, 84081-8 ####[facility] LABCLIA [id number] [address] [place] No Panel Informationon 07-26 [facility] CT CHEST CARDIAC WO IVCONon 07-24-2021 [facility] Comprehensive metabolic 2000 panelon 07-24-2021 Albumin [Mass/Vol] 3.9 g/dL 3.9 - 4.9 g/dL [facility] ALP [Catalytic activity/Vol] 153 U/L High 38 - 113 U/L [facility] ALT [Catalytic activity/Vol] 13 U/L 10 - 54 U/L [facility] Anion gap [Moles/Vol] 10 mmol/L 9 - 18 mmol/L [facility] AST [Catalytic activity/Vol] 15 U/L 14 - 40 U/L [facility] Bilirubin [Mass/Vol] 1.5 mg/dL High 0.2 - 1 .3 mg/dL [facility] Calcium [Mass/Vol] 9.2 mg/dL 8.5 - 10. 2 mg/dL [facility] Chloride [Moles/Vol] 102 mmol/L 97 - 10 5 mmol/L [facility] CO2 [Moles/Vol] 25 mmol/L 22 - 30 mmol/L [facility] Creatinine [Mass/Vol] 0.83 mg/dL 0.73 - 1.22 mg/dL [facility] Estimated Glomerular Filtration Rate 90 mL/min/1.73m >=60 mL/min/1.73m [facility] Glucose [Mass/Vol] 106 mg/dL High 74 - 99 mg/dL [facility] Potassium [Moles/Vol] 4.2 mmol/L 3.7 - 5.1 mmol/L [facility] Protein [Mass/Vol] 7.2 g/dL 6.3 - 8.0 g/dL [facility] Sodium [Moles/Vol] 137 mmol/L 136 - 144 mmol/L [facility] Urea nitrogen [Mass/Vol] 14 mg/dL 9 - 24 mg/dL [facility] GLUCOSE, BLOOD (POC)on 07-24 Glucose [Mass/Vol] 126 mg/dL Abnormal 74 - 99 mg/dL [facility] Glucose [Mass/Vol] 94 mg/dL 74 - 99 mg/dL [facility] NT PRO BNPon 07-24-2021 Natriuretic peptide.B prohormone N-Terminal [Mass/Vol] 9144 pg/mL High <450 pg/mL [facility] XR CHEST 2V FRONTAL/LATon [facility] Vital Signs Date Time Vital Sign Value Performing Clinician Facility 12-26-2023 16:15-0400 Diastolic blood pressure 59 mm[Hg] Ken Fuller MD Work Phone: [facility] 12-26-2023 16:15-0400 Heart rate 50 /min Ken Fuller MD Work Phone: [facility] 12-26-2023 16:15-0400 Respiratory rate 16 /min Ken Fuller MD Work Phone: [facility] 12-26-2023 16:15-0400 SaO2% (BldA) [Mass fraction] 95 % Ken Fuller MD Work Phone: [facility] 12-26-2023 16:15-0400 Systolic blood pressure 148 mm[Hg] Ken Fuller MD Work Phone: [facility] 12-26-2023 14:53-0400 Body height 190.5 cm Ken Fuller MD Work Phone: [facility] 12-26-2023 14:53-0400 Body mass index (BMI) [Ratio] 23.25 kg/m2 Ken Fuller MD Work Phone: [facility] 12-26-2023 14:53-0400 Body temperature 97.59 [degF] Ken Fuller MD Work Phone: [facility] 12-26-2023 14:53-0400 Body weight 84.37 kg Ken Fuller MD Work Phone: [facility] 06-23-2023 08:46-0400 Body height 190.5 cm Ada Willams MD Work Phone: [facility] [employer] 06-23-2023 08:46-0400 Body mass index (BMI) [Ratio] 24 kg/m2 Ada Willams MD Work Phone: [facility] [employer] 06-23-2023 08:46-0400 Body weight 87.09 kg Ada Willams MD Work Phone: [facility] [employer] 06-23-2023 08:46-0400 Diastolic blood pressure 66 mm[Hg] Ada Willams MD Work Phone: [facility] [employer] 06-23-2023 08:46-0400 Heart rate 79 /min Ada Willams MD Work Phone: [facility] [employer] 06-23-2023 08:46-0400 Systolic blood pressure 179 mm[Hg] Ada Willams MD Work Phone: [employer] 06-13-2023 13:00-0400 Diastolic blood pressure 67 mm[Hg] Ada Willams MD Work Phone: [employer] 06-13-2023 13:00-0400 Heart rate 60 /min Ada Willams MD Work Phone: [facility] [employer] 06-13-2023 13:00-0400 Respiratory rate 16 /min Ada Willams MD Work Phone: [facility] [employer] 06-13-2023 13:00-0400 SaO2% (BldA) [Mass fraction] 95 % Ada Willams MD Work Phone: [facility] [employer] 06-13-2023 13:00-0400 Systolic blood pressure 171 mm[Hg] Ada Willams MD Work Phone: [facility] [employer] 06-13-2023 12:04-0400 Body temperature 97 [degF] Ada Willams MD Work Phone: [facility] [employer] 06-13-2023 10:36-0400 Body height 190.5 cm Ada Willams MD Work Phone: [facility] [employer] 06-13-2023 10:36-0400 Body mass index (BMI) [Ratio] 23.87 kg/m2 Ada Willams MD Work Phone: [facility] [employer] 06-13-2023 10:36-0400 Body weight 86.64 kg Ada Willams MD Work Phone: [facility] [employer] 05-18-2023 07:00-0400 Body temperature 97.5 [degF] Az Liu DO Work Phone: [facility] 05-18-2023 07:00-0400 Diastolic blood pressure 71 mm[Hg] Az Liu DO Work Phone: [facility] 05-18-2023 07:00-0400 Heart rate 73 /min Az Liu DO Work Phone: [facility] 05-18-2023 07:00-0400 Respiratory rate 18 /min Az Liu DO Work Phone: [facility] 05-18-2023 07:00-0400 SaO2% (BldA) [Mass fraction] 95 % Az Liu DO Work Phone: [facility] 05-18-2023 07:00-0400 Systolic blood pressure 160 mm[Hg] Az Liu DO Work Phone: [facility] 05-18-2023 05:00-0400 Body mass index (BMI) [Ratio] 26.46 kg/m2 Az Liu DO Work Phone: [facility] 05-18-2023 05:00-0400 Body weight 86.2 kg Az Liu DO Work Phone: [facility] 05-15-2023 20:19-0400 Body height 180.5 cm Az Liu DO Work Phone: [facility] 03-31-2023 09:30-0500 Body height 190.5 cm Ada Willams MD Work Phone: [facility] 03-31-2023 09:30-0500 Body mass index (BMI) [Ratio] 23.75 kg/m2 Ada iWllams MD Work Phone: [facility] 03-31-2023 09:30-0500 Body weight 86.18 kg Ada Willams MD Work Phone: [facility] 03-31-2023 09:30-0500 Diastolic blood pressure 67 mm[Hg] Ada Willams MD Work Phone: [facility] 03-31-2023 09:30-0500 Heart rate 49 /min Ada Willams MD Work Phone: [facility] 03-31-2023 09:30-0500 Systolic blood pressure 169 mm[Hg] Ada Willams MD Work Phone: [facility] 01-22-2023 11:57-0500 Diastolic blood pressure 70 mm[Hg] Ada Willams MD Work Phone: [facility] 01-22-2023 11:57-0500 Systolic blood pressure 140 mm[Hg] Ada Willams MD Work Phone: [facility] 01-22-2023 11:44-0500 Body height 190.5 cm Ada Willams MD Work Phone: [facility] [employer] 01-22-2023 11:44-0500 Body mass index (BMI) [Ratio] 21.75 kg/m2 Ada Willams MD Work Phone: [facility] [employer] 01-22-2023 11:44-0500 Body weight 78.93 kg Ada Willams MD Work Phone: [facility] [employer] 01-22-2023 11:44-0500 Heart rate 59 /min Ada Willams MD Work Phone: [facility] [employer] 01-15-2023 09:54-0500 Body temperature 98.29 [degF] Adi Ortega MD Work Phone: [facility] [employer] 01-15-2023 09:54-0500 Diastolic blood pressure 74 mm[Hg] Adi Ortega MD Work Phone: [facility] [employer] 01-15-2023 09:54-0500 Heart rate 88 /min Adi Ortega MD Work Phone: [facility] [employer] 01-15-2023 09:54-0500 Respiratory rate 16 /min Adi Ortega MD Work Phone: [facility] [employer] 01-15-2023 09:54-0500 SaO2% (BldA) [Mass fraction] 100 % Adi Ortega MD Work Phone: [facility] [employer] 01-15-2023 09:54-0500 Systolic blood pressure 139 mm[Hg] Adi Ortega MD Work Phone: [facility] [employer] 01-13-2023 09:45-0500 Body height 190.5 cm Adi Ortega MD Work Phone: [facility] [employer] 01-13-2023 06:00-0500 Body mass index (BMI) [Ratio] 22.49 kg/m2 Adi Ortega MD Work Phone: [facility] [employer] 01-13-2023 06:00-0500 Body weight 81.6 kg Adi Ortega MD Work Phone: [facility] 01-18-2022 11:39-0500 Body temperature 98.6 [degF] Oliver Mccollum DO Work Phone: [facility] 01-18-2022 11:39-0500 Diastolic blood pressure 89 mm[Hg] Oliver Mccollum DO Work Phone: [facility] 01-18-2022 11:39-0500 Heart rate 128 /min Oliver Mccollum DO Work Phone: [facility] 01-18-2022 11:39-0500 Respiratory rate 14 /min Oliver Chun DO Work Phone: [facility] 01-18-2022 11:39-0500 SaO2% (BldA) [Mass fraction] 96 % Oliver Chun DO Work Phone: [facility] 01-18-2022 11:39-0500 Systolic blood pressure 138 mm[Hg] Oliver Chun DO Work Phone: [facility] 01-14-2022 00:52-0500 Body height 190.5 cm Oliver Chun DO Work Phone: [facility] 01-14-2022 00:52-0500 Body mass index (BMI) [Ratio] 22.25 kg/m2 Oliver Chun DO Work Phone: [facility] 01-14-2022 00:52-0500 Body weight 80.74 kg Oliver Chun DO Work Phone: [facility] 07-24-2021 10:16-0400 Diastolic blood pressure 95 mm[Hg] Jens Bae MD Work Phone: [facility] 07-24-2021 10:16-0400 Heart rate 102 /min Jens Bae MD Work Phone: [facility] 07-24-2021 10:16-0400 Respiratory rate 22 /min Jens Bae MD Work Phone: [facility] 07-24-2021 10:16-0400 SaO2% (BldA) [Mass fraction] 96 % Jens Bae MD Work Phone: [facility] 07-24-2021 10:16-0400 Systolic blood pressure 132 mm[Hg] Jens Bae MD Work Phone: [facility] 07-24-2021 10:130400 Body height 190.5 cm Jens Bae MD Work Phone: [facility] 07-24-2021 10:130400 Body weight 100.92 kg Jens Bae MD Work Phone: [facility] Encounters Encounter Date Encounter Type Care Provider Facility Start: 12-30-2023 Evaluation and management of inpatient APPLE LAZCANO [facility] Start: 12-30-2023 End: 12-30-2023 Emergency department patient visit [facility] Start: 12-26-2023 End: 12-26-2023 Emergency department patient visit Ken Fuller MD Work Phone: [facility] Emergency Medicine Comment on above: Fall, initial encoun ter (Primary Dx); Contusion of right hip, initial encounter; Humeral head fracture, right, closed, initial encounter; Closed fracture of proximal end of right humerus, unspecified fracture morphology, initial encounter Start: 11-05-2023 End: 11-08-2023 Evaluation and management of inpatient TATYANA Pearce GOETZ [facility] Start: 11-05-2023 Evaluation and management of inpatient [facility] Start: 11-05-2023 End: 11-05-2023 Emergency department patient visit DONAL HERNANDEZ [facility] Start: 11-05-2023 End: 11-05-2023 ambulatory MACY JENS [facility] Start: 06-23-2023 End: [facility]23 [facility] Start: 06-23-2023 End: 06-23-2023 Postop follow up visit related to original px Ada Willams MD Work Phone: [facility] Comment on above: SDH (subdural hemato ma) (HCC) (Primary Dx) Start: 06-13-2023 End: 06-13-2023 Evaluation and management of inpatient ADA WILLAMS [facility] Start: 06-13-2023 End: 06-13-2023 Evaluation and management of inpatient Ada Willams MD Work Phone: [facility] Comment on above: Exposed orthopaedic hardware (CMS/HCC) (HCC) (Primary Dx); Traumatic subdural hemorrhage with loss of consciousness status unknown, initial encounter (HCC); Post-operative pain Start: 06-12-2023 Telephone encounter Ada morales MD Work Phone: [facility] Comment on above: other (DNR) Start: 06-06-2023 End: 06-07-[address] [facility] Start: 05-15-2023 End: 05-27-2023 ambulatory AZ Pearce [facility] Start: 05-15-2023 End: 05-15-2023 Subsequent hospital visit by physician Quincy Dave [facility] Comment on above: Arrived Start: 05-15-2023 End: 05-18-2023 Evaluation and management of inpatient Az Liu Work Phone: [facility] 3 Comment on above: Acute on chronic con gestive heart failure, unspecified heart failure type (CMS/HCC) (Primary Dx); Acute hypoxemic respiratory failure (CMS/HCC); 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 Start: 03-31-2023 End: 03-31-2023 Office outpatient visit 25 minutes Ada Willams MD Work Phone: [facility] Comment on above: SDH (subdural hemato ma) (HCC) (Primary Dx) Start: 01-22-2023 End: 01-22-2023 ambulatory ADA WILLAMS [facility] Start: 01-22-2023 End: 01-22-2023 Postop follow up visit related to original px Ada Willams MD Work Phone: [facility] Comment on above: SDH (subdural hemato ma) (HCC) (Primary Dx) Start: 01-20-2023 Telephone encounter Ada morales MD Work Phone: [facility] Comment on above: Cancelled Appointmen t Advice Only Start: 01-10-2023 Telephone encounter Catrina gilbert MD Work Phone: [facility] Clinical Communication Comment on above: Letter for School/Wo rk (Letter for son to be able to go to the bank to pay bills for pt, and will have some overdue bills, says he spoke to someone 01/07/23 and he thinks Catrina Rodríguez) Start: 01-07-2023 End: 01-15-2023 Evaluation and management of inpatient ADI FLY [facility] Start: 01-06-2023 End: 01-15-2023 Evaluation and management of inpatient Adi Ortega MD Work Phone: [facility] Comment on above: SDH (subdural hemato ma) (HCC) (Primary Dx); Cognitive impairment; Fall, initial encounter Start: 01-14-2022 End: 01-18-2022 Emergency department patient visit Oliver Mccollum DO Work Phone: [facility] Start: 01-13-2022 End: 01-14-2022 Emergency department patient visit Eloisa Marshall Kayden [facility] Emergency 14 Start: 08-09-2021 Orders Only Jens Bae MD Work Phone: Cardiology Comment on above: 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) Start: 07-27-2021 End: 08-29-2021 Evaluation and management of inpatient EDWARD G SOLTESZ Facility:[facility] Start: 07-26-2021 End: 07-27-2021 ambulatory VENKATA RAMIREZ Facility:[facility] Start: 07-26-2021 End: 07-26-2021 ambulatory VENKATA RAMIREZ Facility:[facility] Start: 07-26-2021 End: 07-26-2021 Subsequent hospital visit by physician Ct 2 Main Qb (I-Stat) Radiology Start: 07-26-2021 Patient encounter status Anest hesia Clearance Work Phone: [facility] Start: 07-26-2021 End: 07-26-2021 Patient encounter procedure Pulm Fct Lab Main 6 Addon Work Phone: [facility] Start: 07-26-2021 End: 07-26-2021 ambulatory Pulm Fct Lab Main 6 Addon Work Phone: Pulmonary Medicine Comment on above: Spirometry Start: 07-26-2021 End: 07-26-2021 Admission to same day surgery center Anesthesia Clearance Work Phone: Cardiothoracic Start: 07-26-2021 End: 07-26-2021 Patient encounter procedure Anesthesia Clearance Work Phone: Cardiothoracic Comment on above: Encounter for preope rative anesthesiology assessment for cardiac surgery (Primary Dx) Cardiomyopathy, isch emic (Primary Dx); Mitral valve disorder; Atherosclerosis of coronary artery of [place] heart, unspecified vessel or lesion type, unspecified whether angina present; Disease of tricuspid valve Start: 07-26-2021 End: 07-27-2021 ambulatory VENKATA RAMIREZ Facility:[facility] Start: 07-25-2021 Encounter for other preprocedural examination MACY BARCENAS [facility] Start: 07-25-2021 Patient encounter status Sulma Sesay DO Work Phone: [facility] Start: 07-25-2021 End: 07-26-2021 ambulatory TALITA SESAY Facility:[facility] Start: 07-25-2021 End: 07-25-2021 ambulatory Talita Sesay DO Work Phone: Cardiology Start: 07-25-2021 End: 07-25-2021 Patient encounter procedure Talita Sesay DO Work Phone: [facility] Start: 07-24-2021 End: 07-24-2021 ambulatory VENKATA RAMIREZ Facility:[facility] Start: 07-24-2021 Telephone encounter Talita lockhartmaicol DO Work Phone: Cardiology Comment on above: Patient Education Start: 07-24-2021 Encounter for preprocedural cardiovascular examination MACY NARINDER [facility] Start: 07-24-2021 End: 07-25-2021 ambulatory MACY BARCENAS Facility:[facility] Start: 07-24-2021 End: 07-24-2021 Subsequent hospital visit by physician Ct 2 Main Qb (I-Stat) Radiology Comment on above: Cardiomyopathy, isch emic [I25.5] Start: 07-24-2021 End: 07-25-2021 ambulatory MACY BARCENAS Facility:[facility] Start: 07-24-2021 End: 07-24-2021 Patient encounter status Xr J1 Work Phone: Radiology Start: 07-24-2021 End: 07-24-2021 Subsequent hospital visit by physician Anshu Chest Main J1 Work Phone: Radiology Comment on above: Cardiomyopathy, isch emic [I25.5] Start: 07-24-2021 End: 07-24-2021 Patient encounter procedure Jens Bae MD Work Phone: Cardiology Comment on above: Chronic systolic HF (heart failure) (HCC) (Primary Dx); Other chest pain Start: 07-24-2021 End: 07-24-2021 ambulatory VENKATA RAMIREZ Facility:[facility] Start: 07-24-2021 End: 07-24-2021 ambulatory VENKATA RAMIREZ Facility:[facility] Start: 07-24-2021 End: 07-24-2021 Subsequent hospital visit by physician [facility] Comment on above: Cardiomyopathy, isch emic [I25.5] Start: 07-17-2021 Telephone encounter Kiley nazario RN Work Phone: Case Management Comment on above: Care Coordination (C are Continuum Advisor Assessment ) Start: 06-26-2021 End: 06-26-2021 ambulatory MACY BARCENAS Facility:[facility] Start: 06-12-2021 Patient encounter status Byron Ramirez MD Work Phone: Cardiothoracic Start: 06-12-2021 Telephone encounter Tevin armenta MD Work Phone: Cardiothoracic Comment on above: Insurance Inquiry Case Review Cardiac Preop Checkl ist Start: 06-11-2021 Telephone encounter Tevin armenta MD Work Phone: Cardiothoracic Comment on above: Request Outside [facility] Records Procedures Date Procedure Procedure Detail Performing Clinician Start: 12-26-2023 Radex shoulder compl ete minimum 2 views Ken Fuller MD Work Phone: Start: 06-13-2023 Antibody screen ADA KINNEY Comment on above: Performed By: #### L [id number], [id number], [id number] #### Web Retailer: SHARDA CAM ([phone]) [address] Start: 06-13-2023 Cul bact xcpt urine blood/stool aerobic isol Ada Willams MD Work Phone: Start: 06-13-2023 ABO and Rh group [Ty pe] in Blood by Confirmatory method Ramona Odonnell [employer] Work Phone: Start: 06-13-2023 Blood typing serologic abo Ramona Odonnell [employer] Work Phone: Start: 05-18-2023 DISCHARGE PATIENT BRIANELIZABETH Madrigal EDGAR Start: 05-18-2023 EXTRA TUBES DONAL EDG AR Start: 05-18-2023 LAVENDER TOP DONAL EDG AR Start: 05-18-2023 Basic metabolic 2000 panel - Serum or Plasma DONAL HERNANDEZ Start: 05-18-2023 EXTRA TUBES Tara Blanco MD Work Phone: Start: 05-18-2023 WING Blanco MD Work Phone: Start: 05-18-2023 Basic metabolic pane l calcium total Barry Mckay DO Work Phone: Start: 05-17-2023 CBC panel - Blood by Automated count DONALLISANDRA HERNANDEZ Start: 05-17-2023 Comprehensive metabo lic 2000 panel - Serum or Plasma DONALLISANDRA HERNANDEZ Start: 05-17-2023 Comprehensive metabo lic panel Barry Mckay DO Work Phone: Start: 05-16-2023 CYTOLOGY CONSULTATIO N (NON-GYNECOLOGIC) DONAL DAVID Start: 05-16-2023 PH, BODY FLUID DONAL E DGAR Start: 05-16-2023 BODY FLUID CELL COUNT R ACHEL DAVID Start: 05-16-2023 BODY FLUID CELL COUN T WITH DIFFERENTIAL DONAL DAVID Start: 05-16-2023 BODY FLUID CELL DIFFERENTIAL DONAL DAVID Start: 05-16-2023 GLUCOSE, FLUID DONAL E DGAR Start: 05-16-2023 LACTATE DEHYDROGENASE, FLUID DONAL DAVID Start: 05-16-2023 PROTEIN, TOTAL FLUID RA JAZIEL DAVID Start: 05-16-2023 Cell count and Diffe rential panel - Body fluid Barry Mckay DO Work Phone: Start: 05-16-2023 Cell count misc body fluids w/differential count Barry Mckay DO Work Phone: Start: 05-16-2023 Cell count panel - B murali fluid Barry Mckay DO Work Phone: Start: 05-16-2023 Glucose [Mass/volume ] in Body fluid Barry Mckay DO Work Phone: Start: 05-16-2023 Lactate dehydrogenas e [Enzymatic activity/volume] in Body fluid by Lactate to pyruvate reaction Barry Mckay DO Work Phone: Start: 05-16-2023 Protein [Mass/volume ] in Body fluid Barry Mckay DO Work Phone: Start: 05-16-2023 RESPIRATORY CULTURE/SMEAR DONAL DAVID Start: 05-16-2023 TRANSTHORACIC ECHO ( TTE) COMPLETE DONAL HERNANDEZ Start: 05-16-2023 EXTRA TUBES DONAL EDG AR Start: 05-16-2023 LAVENDER TOP DONAL WEBSTER AR Start: 05-16-2023 Smr prim src gram/gi emsa stain bct fungi/cell Tara Blanco MD Work Phone: Start: 05-16-2023 Echo tthrc r-t 2d w/ wom-mode compl spec&colr d Tara Blanco MD Work Phone: Start: 05-16-2023 Basic metabolic 2000 panel - Serum or Plasma DONAL HERNANDEZ Start: 05-16-2023 PROCALCITONIN DONAL FORD Start: 05-16-2023 Lactate dehydrogenas e [Enzymatic activity/volume] in Serum or Plasma DONAL HERNANDEZ Start: 05-16-2023 Protein [Mass/volume ] in Serum or Plasma DONAL HERNANDEZ Start: 05-16-2023 EXTRA TUBES Tara Blanco MD Work Phone: Start: 05-16-2023 LAVENDER TOP Tara Blanco MD Work Phone: Start: 05-16-2023 End: 05-16-2023 Basic metabolic panel calcium total Tara Blanco MD Work Phone: Start: 05-16-2023 FULL CODE DONAL WEBSTER AR Start: 05-16-2023 MEASURE HEIGHT DONAL Troy DGAR Start: 05-16-2023 TELEMETRY MONITORING RA JAZIEL HERNANDEZ Start: 05-16-2023 WEIGH PATIENT DONAL FORD Start: 05-16-2023 IP CONSULT TO HEART FAILURE NAVIGATOR DONAL HERNANDEZ Start: 05-15-[address] HERNANDEZ Start: 05-15-2023 ED TO FLOOR BED REQUEST DONAL HERNANDEZ Start: 05-15-2023 EXTRA URINE PLATT TUBE R ACHEL DAVID Start: 05-15-2023 URINALYSIS MICROSCOP IC WITH REFLEX CULTURE DONAL HERNANDEZ Start: 05-15-2023 URINALYSIS WITH REFL EX CULTURE AND MICROSCOPIC DONAL HERNANDEZ Start: 05-15-2023 CT ANGIO CHEST FOR P ULMONARY EMBOLISM DONAL HERNANDEZ Start: 05-15-2023 Urinalysis complete W Reflex Culture panel - Urine Az Pearce Kristy DO Work Phone: Start: 05-15-2023 Urnls dip stick/tabl et reagent auto microscopy Az Pearce Kristy DO Work Phone: Start: 05-15-2023 INFLUENZA A AND B PCR R [facility] DAVID Start: 05-15-2023 SARS-COV-2 PCR DONAL E DGAR Start: 05-15-2023 aPTT in Blood by Coa gulation assay DONAL DAVID Start: 05-15-2023 Bacteria identified in Blood by Culture [facility] Start: 05-15-2023 CBC W Auto Different ial panel - Blood [facility] Start: 05-15-2023 Comprehensive metabo lic 2000 panel - Serum or Plasma [facility] Start: 05-15-2023 D-DIMER, NON VTE [facility] Start: 05-15-2023 Lactate [Moles/volum e] in Serum or Plasma [facility] Start: 05-15-2023 Natriuretic peptide B [Mass/volume] in Blood [facility] Start: 05-15-2023 PROTIME-INR SHIRLEY ED AR Start: 05-15-2023 TROPONIN I, HIGH SENSITIVITY [facility] Start: 05-15-2023 XR CHEST 1 VIEW [facility] Start: 05-15-2023 INITIATE DROPLET PLU S ISOLATION [facility] Start: 05-15-2023 INSERT PERIPHERAL IV RA [facility] DAVID Start: 05-15-2023 ECG 12-LEAD SHIR[facility] ED AR Start: 05-15-2023 Ct angiography chest w/contrast/noncontrast Az Pearce Kristy DO Work Phone: Start: 05-15-2023 End: 05-15-2023 Culture bacterial blood aerobic w/id isolates Az Nicholasvashti DO Work Phone: Start: 05-15-2023 Influenza virus A an d B RNA [Identifier] in Unspecified specimen by FAMILIA with probe detection Az Pearce Kristy DO Work Phone: Start: 05-15-2023 SARS-CoV-2 (COVID-19 ) RNA [Presence] in Respiratory specimen by FAMILIA with probe detection Az Liu DO Work Phone: Start: 05-15-2023 Comprehensive metabo lic panel Az Liu DO Work Phone: Start: 05-15-2023 Radiologic exam ches t single view Az Liu DO Work Phone: Start: 05-15-2023 End: 05-15-2023 Ecg routine ecg w/least 12 lds i&r only Az Liu DO Work Phone: Start: 01-13-2023 Radex spine thoracol umbar junction min 2 views Amanda Torres [employer] Work Phone: Start: 01-09-2023 Basic metabolic pane l calcium total Sonia Martin Orosz [employer] Work Phone: Start: 01-08-2023 Radiologic exam ches t single view Bashir C Gemma DO Work Phone: Start: 01-08-2023 Radiologic exam abdo men [address] MD Work Phone: Start: 01-08-2023 Ct head/brain w/o co ntrast material Sonia Martin Orosz [employer] Work Phone: Start: 01-08-2023 Basic metabolic pane l calcium total Sonia Martin Orosz [employer] Work Phone: Start: 01-07-2023 End: 01-07-2023 Craniectomy hmtma supratentorial extra/subdural Ada Willams MD Work Phone: Start: 01-07-2023 Ecg routine ecg w/le ast 12 lds trcg only w/o i&r Irineo Meehan MD Work Phone: Start: 01-07-2023 Ct head/brain w/o co ntrast material Bashir C Gemma DO Work Phone: Start: 01-06-2023 Basic metabolic pane l calcium total Bashir C Gemma DO Work Phone: Start: 01-18-2022 SARS-CoV-2 (COVID-19 ) RNA [Presence] in Respiratory specimen by FAMILIA with probe detection Nicki Busch Kemp [employer] Work Phone: Start: 01-18-2022 Prothrombin time Kelsy Black [facility],PharmD Start: 01-17-2022 End: 01-17-2022 Basic metabolic panel calcium ionized Yassine Ac MD Work Phone: Start: 01-17-2022 Prothrombin time Kelsy Black [facility],PharmD Start: 01-16-2022 Radiologic examinati on knee 1/2 views Clark Ansarigh Rex [employer] Work Phone: Start: 01-16-2022 Prothrombin time Clark Goodman FLOOR SWEEPER Work Phone: Start: 01-15-2022 Blood count complete automated Leonardo Montano FLOOR SWEEPER Work Phone: Start: 01-14-2022 End: 01-14-2022 Mri spinal canal thoracic w/o contrast khoal Doug Garay MD Work Phone: Start: 01-14-2022 Culture bacterial quanttative colony count urine Oliver Mccollum DO Work Phone: Start: 01-14-2022 Urnls dip stick/tabl et reagent auto microscopy Mariann Callejas FLOOR SWEEPER Work Phone: Start: 01-14-2022 Ct head/brain w/o co ntrast material Mariann Callejas FLOOR SWEEPER Work Phone: Start: 01-14-2022 End: 01-14-2022 Computerized tomography, limited studies Oliver Mccollum DO Work Phone: Start: 01-14-2022 Assay of magnesium Elenita Callejas FLOOR SWEEPER Work Phone: Start: 01-14-2022 Hepatic function panel Mariann Callejas FLOOR SWEEPER Work Phone: Start: 08-16-2021 Antibody screen MACY BEGUM Comment on above: Order Comment: Speci men Type: BLOOD SPECIMENOrdering Facility: [facility] Address: [address] [place], [place] [id number] Performed By: #### T SCR ####CC MAIN BLOOD BANKCLIA [id number] OLIVIA [facility] [id number] [place] [id number] [facility] Start: 07-26-2021 Ct angio abd&plvis c ntrst mtrl w/wo cntrst img Jens Bae MD Work Phone: Start: 07-26-2021 Ct angiography chest w/contrast/noncontrast Jens Bae MD Work Phone: Start: 07-26-2021 Spmtry w/vc expirato ry nany w/wo mxml vol vntj Venkata Ramirez MD Work Phone: Start: 07-24-2021 Ct thorax w/o contra st material Venkata Ramirez MD Work Phone: Start: 07-24-2021 Radiologic exam ches t 2 views Venkata Ramirez MD Work Phone: Start: 07-24-2021 Myocrd img pet prfuj electric mule operator std rst&strs cncrnt ct Venkata Ramirez MD Work Phone: Start: 07-24-2021 End: 07-24-2021 Gluc bld gluc mntr dev cleared fda spec home use [facility] Provider Plan of Treatment Date Care Activity Detail Author Start: 01-14-2032 DTaP/Tdap/Td Vaccines (2 - Td or Tdap) DTaP/Tdap/Td Vaccines (2 - Td or Tdap) [facility] Start: 11-07-2024 Creatinine measurement Creatinine Level [facility] Start: 11-07-2024 Potassium measurement Potassium Level [facility] Start: 11-05-2024 Echocardiography Echocardiogram [facility] Start: 07-24-2024 DIABETES SCREEN DIABETES SCREEN [facility] Start: 05-17-2024 Creatinine measurement Creatinine Level [facility] Start: 05-17-2024 Potassium measurement Potassium Level [facility] Start: 05-15-2024 Echocardiography Echocardiogram [facility] Start: 01-10-2024 Creatinine measurement Creatinine Level [facility] Start: 01-10-2024 Potassium measurement Potassium Level [facility] Start: 01-06-2024 End: 01-06-2024 Patient encounter procedure 01/06/2024 1:00 PM EST Appointment [facility] [address] [facility] [address] [place] [address] [facility] 3 Start: 11-02-2023 COVID-19 Vaccine ( season) COVID-19 Vaccine () [facility] Start: 11-02-2023 Influenza vaccination [facility] Start: 06-23-2023 End: 06-23-2023 Patient encounter procedure [facility] Start: 06-13-2023 End: 06-13-2023 Admission to same day surgery center 06/13/2023 12:30 PM EDT - 06/13/2023 1:30 PM EDT Surgery [facility] MA[facility] OR [address] [place] [address] Ada Willams MD [address] [place] [address] REVISION OF RIGHT POSTERIOR CRANIAL WOUND, REMOVAL OF CRANIAL PLATE [71728 (CPT )] [facility] Comment on above: REVISION OF RIGHT POSTERIOR CRANIAL WOUN D, REMOVAL OF CRANIAL PLATE [73601 (CPT )] Start: 06-13-2023 End: 06-13-2023 Anesthesia consultation 06/13/2023 12:30 PM EDT Anesthesia Event [facility] OR [address] [place] [address] Rocael Bernal RN [facility] Start: 06-13-2023 End: 06-13-2023 Rmvl bone flap/prosthetic plate skull REMOVAL OF BONE FLAP OR PROSTHETIC PLATE OF SKULL Traumatic subdural hemorrhage with loss of consciousness status unknown, initial encounter (HCC) 06/13/2023 12:30 PM EDT [facility] Operating Room Start: 06-13-2023 Subsequent hospital visit by physician 06/13/2023 12:30 PM EDT Hospital Encounter [facility] [address] [place] [address] Ada Willams MD [address] [place] [phone] [facility] Start: 06-06-2023 End: 06-06-2023 Admission to same day surgery center 06/06/2023 7:30 AM EDT - 06/06/2023 8:30 AM EDT Surgery [facility] MAIN OR [address] [place] [address] Ada Willams MD [address] [place] [address] REVISION OF RIGHT POSTERIOR CRANIAL WOUND, REMOVAL OF CRANIAL PLATE [34977 (CPT )] [facility] MAIN OR Comment on above: REVISION OF RIGHT POSTERIOR CRANIAL WOUN D, REMOVAL OF CRANIAL PLATE [70381 (CPT )] Start: 06-06-2023 End: 06-06-2023 Rmvl bone flap/prosthetic plate skull REMOVAL OF BONE FLAP OR PROSTHETIC PLATE OF SKULL Traumatic subdural hemorrhage with loss of consciousness status unknown, initial encounter ([facility]) 06/06/2023 7:30 AM EDT [facility] Operating Room Start: 06-06-2023 Subsequent hospital visit by physician 06/06/2023 7:30 AM EDT Hospital Encounter [facility] [address] [place] [address] Ada Willams MD [address] [place] [address] [facility] MAIN OR Start: 05-30-2023 End: 05-30-2023 Admission to [facility] 05/30/2023 12:30 PM EDT Pre-Admission Testing [facility] Pre-Admit Testing [address] [place] [address] [facility] Pre-Admit Testing Start: 05-07-2023 End: 05-07-2023 Patient encounter procedure 05/07/2023 9:00 AM EST Office Visit [facility] [address] [phone] Ada Willams MD [address] [place] [phone] [facility] Start: 04-25-2023 End: 04-25-2023 Admission to same day surgery center 04/25/2023 7:30 AM EST - 04/25/2023 8:30 AM EST Surgery [facility] MAIN OR [address] [place] [address] Ada Willams MD [address] [place] [phone] REVISION OF RIGHT POSTERIOR CRANIAL WOUND, REMOVAL OF CRANIAL PLATE [03303 (CPT )] [facility] MAIN OR Comment on above: REVISION OF RIGHT POSTERIOR CRANIAL WOUN D, REMOVAL OF CRANIAL PLATE [62985 (CPT )] Start: 04-25-2023 End: 04-25-2023 Rmvl bone flap/prosthetic plate skull REMOVAL OF BONE FLAP OR PROSTHETIC PLATE OF SKULL Traumatic subdural hemorrhage with loss of consciousness status unknown, initial encounter ([facility]) 04/25/2023 7:30 AM EST [facility] Operating Room Start: 04-25-2023 Subsequent hospital visit by physician 04/25/2023 7:30 AM EST Hospital Encounter [facility] [address] [facility] [place] [address] Ada Willams MD [address] [place] [phone] [facility] Start: 04-18-2023 End: 04-18-2023 Admission to establishment 04/18/2023 7:30 AM EST Pre-Admission Testing [facility] Pre-Admit Testing [address] [place] [phone] [facility] Pre-Admit Testing Start: 03-03-2023 Medicare Advantage Annual Wellness Visit Medicare [facility] Annual Wellness Visit [facility] Start: 01-22-2023 End: 01-22-2023 Patient encounter procedure 01/22/2023 11:30 AM EST Office Visit [address] [phone] Ada Willams MD [address] [place] [phone] [facility] Start: 01-20-2023 End: 01-20-2023 Patient encounter procedure 01/20/2023 9:15 AM EST Office Visit [address] [phone] Ada Willams MD [address] [place] [phone] [facility] Start: 11-01-2022 COVID-19 Vaccine ( season) COVID-19 Vaccine ( season) [facility] Start: 11-01-2022 Influenza vaccination Influenza Vaccine (#1) [facility] Start: 08-07-2022 Diabetes mellitus screening Diabetes Screening [facility] Start: 02-06-2022 Hemoglobin A1c/Hemoglobin.total in Blood HBA1C [facility] Start: 01-13-2022 End: 01-14-2023 Lidocaine 2% - EPINEPHrine 1:100,000 Injectable SubCutaneous Once ; DOSE = 5 mL SubCutaneous OnceClinician Notes: Nursing to leave at bedside for physician to administer Start: 13-Jan-2022 End: 13-Jan-2023 Ordered: 13-Jan-2022 Eloisa Norris I Intent Comments: Nursing to leave at bedside for physician to administer [facility] Comment on above: Nursing to leave at bedside for physicia n to administer Start: 11-01-2021 Influenza [facility] Start: 09-24-2021 End: 11-24-2021 aPTT in Platelet poor plasma by Coagulation assay ACTIVATED PTT Lab Routine Cardiomyopathy, ischemic Controlled type 2 diabetes mellitus without complication, unspecified whether ad terminal makeup operator insulin use (HCC) Shortness of breath Heart disease Pre-operative cardiovascular examination Atherosclerosis of coronary artery of [place] heart, unspecified vessel or lesion type, unspecified whether angina present 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 Expected: 09/24/2021 (Approximate), Expires: 11/24/2021 [facility] Work Phone: Comment on above: Expected: 09/24/2021 (Approximate), Expi res: 11/24/2021 Start: 09-24-2021 End: 11-24-2021 CBC W Auto Differential panel - Blood CBC + DIFF Lab Routine Cardiomyopathy, ischemic Controlled type 2 diabetes mellitus without complication, unspecified whether retirement insulin use (HCC) Shortness of breath Heart disease Pre-operative cardiovascular examination Atherosclerosis of coronary artery of [place] heart, unspecified vessel or lesion type, unspecified whether angina present 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 Expected: 09/24/2021, Expires: 11/24/2021 [facility] Work Phone: Comment on above: Expected: 09/24/2021, Expires: 2 Start: 09-24-2021 End: 11-24-2021 Comprehensive metabolic 2000 panel - Serum or Plasma COMP METABOLIC PANEL Lab Routine Cardiomyopathy, ischemic Controlled type 2 diabetes mellitus without complication, unspecified whether retirement insulin use (HCC) Shortness of breath Heart disease Pre-operative cardiovascular examination Atherosclerosis of coronary artery of [place] heart, unspecified vessel or lesion type, unspecified whether angina present 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 Expected: 09/24/2021, Expires: 11/24/2021 [facility] Work Phone: Comment on above: Expected: 09/24/2021, Expires: 2 Start: 09-24-2021 End: 11-24-2021 Hemoglobin A1c/Hemoglobin.total in Blood HGB A1C Lab Routine Cardiomyopathy, ischemic Controlled type 2 diabetes mellitus without complication, unspecified whether retirement insulin use (HCC) Shortness of breath Heart disease Pre-operative cardiovascular examination Atherosclerosis of coronary artery of [place] heart, unspecified vessel or lesion type, unspecified whether angina present 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 Expected: 09/24/2021 (Approximate), Expires: 11/24/2021 [facility] Work Phone: Comment on above: Expected: 09/24/2021 (Approximate), Expi res: 11/24/2021 Start: 09-24-2021 End: 11-24-2021 Lactate dehydrogenase [Enzymatic activity/volume] in Serum or Plasma LD LACTATE DEHYDRO Lab Routine Cardiomyopathy, ischemic Controlled type 2 diabetes mellitus without complication, unspecified whether ad terminal makeup operator insulin use (HCC) Shortness of breath Heart disease Pre-operative cardiovascular examination Atherosclerosis of coronary artery of [place] heart, unspecified vessel or lesion type, unspecified whether angina present 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 Expected: 09/24/2021, Expires: 11/24/2021 [facility] Work Phone: Comment on above: Expected: 09/24/2021, Expires: Start: 09-24-2021 End: 11-24-2021 PT panel - Platelet poor plasma by Coagulation assay PROTHROMBIN TIME/PT Lab Routine Cardiomyopathy, ischemic Controlled type 2 diabetes mellitus without complication, unspecified whether retirement insulin use (HCC) Shortness of breath Heart disease Pre-operative cardiovascular examination Atherosclerosis of coronary artery of [place] heart, unspecified vessel or lesion type, unspecified whether angina present 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 Expected: 09/24/2021, Expires: 11/24/2021 [facility] Work Phone: Comment on above: Expected: 09/24/2021, Expires: 2 Start: 09-24-2021 End: 11-24-2021 URINALYSIS, DIPSTICK ONLY URINALYSIS, DIPSTICK ONLY Lab Routine Cardiomyopathy, ischemic Controlled type 2 diabetes mellitus without complication, unspecified whether retirement insulin use (HCC) Shortness of breath Heart disease Pre-operative cardiovascular examination Atherosclerosis of coronary artery of [place] heart, unspecified vessel or lesion type, unspecified whether angina present 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 Expected: 09/24/2021, Expires: 11/24/2021 [facility] Work Phone: Comment on above: Expected: 09/24/2021, Expires: 2 Start: 08-09-2021 End: 10-09-2021 Basic metabolic 2000 panel - Serum or Plasma BASIC METABOLIC PNL Lab Routine Chronic combined systolic and diastolic heart failure (HCC) Expected: 08/09/2021, Expires: 10/09/2021 [facility] Work Phone: Comment on above: Expected: 08/09/2021, Expires: 2 Start: 08-09-2021 End: 10-09-2021 Magnesium [Mass/volume] in Serum or Plasma MAGNESIUM BLD Lab Routine Chronic combined systolic and diastolic heart failure (HCC) Expected: 08/09/2021, Expires: 10/09/2021 [facility] Work Phone: Comment on above: Expected: 08/09/2021, Expires: 2 Start: 06-25-2021 End: 10-25-2021 SARS-CoV-2 (COVID-19) RNA [Presence] in Respiratory specimen by FAMILIA with probe detection INTERMEDIATE RAPID COVID Microbiology Routine Cardiomyopathy, ischemic Controlled type 2 diabetes mellitus without complication, unspecified whether retirement insulin use (HCC) Shortness of breath Heart disease Pre-operative cardiovascular examination Atherosclerosis of coronary artery of [place] heart, unspecified vessel or lesion type, unspecified whether angina present 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 Expected: 06/25/2021, Expires: 10/25/2021 [facility] Work Phone: Comment on above: Expected: 06/25/2021, Expires: 2 Start: 06-25-2021 End: 08-25-2021 TYPE AND SCREEN,30 DAY TYPE AND SCREEN,30 DAY Blood Bank Routine Cardiomyopathy, ischemic Controlled type 2 diabetes mellitus without complication, unspecified whether ad terminal makeup operator insulin use (HCC) Shortness of breath Heart disease Pre-operative cardiovascular examination Atherosclerosis of coronary artery of [place] heart, unspecified vessel or lesion type, unspecified whether angina present 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 Expected: 06/25/2021, Expires: 08/25/2021 [facility] Work Phone: Comment on above: Expected: 06/25/2021, Expires: 2 Start: 03-03-2021 ADVANCE DIRECTIVE DISCUSSION ADVANCE DIRECTIVE DISCUSSION [facility] Start: 10-04-2020 COVID-19 VACCINE (3 - Booster for Moderna series) COVID-19 VACCINE (3 - Booster for Moderna series) [facility] Start: 08-11-2018 RSV High Risk: (Elderly (60+) or Population) (1 - 1-dose 75+ series) RSV High Risk: (Elderly (60+) or Population) (1 - 1-dose 75+ series) [facility] Start: 03-13-2015 DIABETES SCREEN DIABETES SCREEN [facility] Start: 02-17-2013 Hepatitis B surface antibody level LDL CHOLESTEROL [facility] Start: 12-01-2009 PNEUMOCOCCAL: 65+ (2 - PCV) PNEUMOCOCCAL: 65+ (2 - PCV) [facility] Start: 2003 RSV Immunization aged 60 or older (1 - 1-dose 60+ series) RSV Immunization aged 60 or older (1 - 1-dose 60+ series) [facility] Start: 08-11-1993 SHINGRIX VACCINE (1 of 2) SHINGRIX VACCINE (1 of 2) [facility] Start: 08-11-1993 Zoster Vaccines (1 of 2) Zoster Vaccines (1 of 2) [facility] Start: 08-11-1962 Urine microalbumin profile DTAP,TDAP,TD (1 - Tdap) [facility] Start: 08-11-1961 ANNUAL PCP TEAM CHRONIC DISEASE VISIT ANNUAL PCP TEAM CHRONIC DISEASE VISIT [facility] Start: 08-11-1961 BP CONTROLLED (<130/80) BP CONTROLLED (<130/80) [facility] Start: 08-11-1961 HEPATITIS C SCREENING HEPATITIS C SCREENING [facility] Start: 08-11-1961 Hepatitis C screening Hepatitis C Screening [facility] Start: 1955 Adult depression screening assessment DEPRESSION SCREENING [facility] Start: 08-11-1953 3 comp foot exam completed DIABETIC FOOT EXAM [facility] Start: 08-11-1953 Hepatitis B screening URINE ALBUMIN:CREATININE RATIO [facility] Start: 08-11-1953 Hepatitis C antibody, confirmatory test DILATED RETINAL EXAM [facility] Start: 08-11-1948 COVID-19 VACCINE (1) COVID-19 VACCINE (1) [facility] Start: 1943 Echocardiography Echocardiogram [facility] Start: 1943 Lipid panel Lipid Panel [facility] Start: 1943 Medicare Advantage Annual Wellness Visit (AWV) Medicare Advantage Annual Wellness Visit (AWV) [facility] Start: 1943 Medicare Annual Wellness Visit Medicare Annual Wellness Visit (AWV) [facility] Start: 1943 Screening for osteoporosis Bone Density Scan [facility] Aerobic and Anaerobi c Culture with Stain [facility] [employer] [facility] Work Phone: Comment on above: Release Upon Ordering for 1 Occurrences starting 06/13/2023 Bacteria identified in Blood by Culture [facility] Work Phone: Bacteria identified in Unspecified specimen by Aerobe culture Culture, Aerobic Bacteria with Gram Stain Microbiology Routine Traumatic subdural hemorrhage with loss of consciousness status unknown, initial encounter (HCC) 06/13/2023 11:38 AM EDT [facility] End: 06-13-2023 Bacteria identified in Unspecified specimen by Anaerobe culture [facility] Comment on above: Once for 1 Occurrences starting 06/13/19 until 06/13/2023 CONFIRM BLOOD TYPE CONFIRM BLOOD TYPE Blood Bank Routine Cardiomyopathy, ischemic Controlled type 2 diabetes mellitus without complication, unspecified whether ad terminal makeup operator insulin use ([facility]) Shortness of breath Heart disease Pre-operative cardiovascular examination Atherosclerosis of coronary artery of [place] heart, unspecified vessel or lesion type, unspecified whether angina present 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 Ordered: 06/25/2021 [facility] Work Phone: Comment on above: Ordered: 06/25/2021 End: 08-23-2022 Ct angio abd&plvis cntrst mtrl w/wo cntrst img CTA ABD/PEL W IVCON Radiology STAT Other chest pain 1 Occurrences starting 07/24/2021 until 08/23/2022 [facility] Work Phone: Comment on above: 1 Occurrences starting 07/24/2021 until 08/23/2022 End: 08-23-2022 Ct angiography chest w/contrast/noncontrast CTA CHEST (GATED) W IVCON Radiology STAT Other chest pain 1 Occurrences starting 07/24/2021 until 08/23/2022 [facility] Work Phone: Comment on above: 1 Occurrences starting 07/24/2021 until 08/23/2022 Ct thorax w/o contra st material CT CHEST CARDIAC WO IVCON Radiology Routine Cardiomyopathy, ischemic Controlled type 2 diabetes mellitus without complication, unspecified whether retirement insulin use (HCC) Shortness of breath Heart disease Pre-operative cardiovascular examination Atherosclerosis of coronary artery of [place] heart, unspecified vessel or lesion type, unspecified whether angina present 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 Ordered: 06/25/2021 [facility] Work Phone: Comment on above: Ordered: 06/25/2021 End: 06-25-2022 ECG COMPLETE ECG COMPLETE ECG Routine Cardiomyopathy, ischemic Controlled type 2 diabetes mellitus without complication, unspecified whether ad terminal makeup operator insulin use (HCC) Shortness of breath Heart disease Pre-operative cardiovascular examination Atherosclerosis of coronary artery of [place] heart, unspecified vessel or lesion type, unspecified whether angina present 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 1 Occurrences starting 06/25/2021 until 06/25/2022 [facility] Work Phone: Comment on above: 1 Occurrences starting 06/25/2021 until 06/25/2022 Echocardiography ECHO Cardiology Routine Cardiomyopathy, ischemic Controlled type 2 diabetes mellitus without complication, unspecified whether ad terminal makeup operator insulin use (HCC) Shortness of breath Heart disease Pre-operative cardiovascular examination Atherosclerosis of coronary artery of [place] heart, unspecified vessel or lesion type, unspecified whether angina present 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 Ordered: 06/25/2021 [facility] Work Phone: Comment on above: Ordered: 06/25/2021 Electrocardiogram, 12-lead PRN ACS symptoms Electrocardiogram, 12-lead PRN ACS symptoms ECG Routine As needed until discontinued starting 05/15/2023 [facility] Service Area Work Phone: Comment on above: As needed until discontinued starting Electrocardiogram, 12-lead PRN ACS symptoms Electrocardiogram, 12-lead PRN ACS symptoms ECG Routine As needed until discontinued starting 05/16/2023 [facility] Work Phone: Comment on above: As needed until discontinued starting End: 05-15-2023 Extra Urine Platt Tube Extra Urine Platt Tube Lab Timed Once for 1 Occurrences starting 05/15/2023 until 05/15/2023 [facility] Work Phone: Comment on above: Once for 1 Occurrences starting 05/15/19 until 05/15/2023 LUNG DIFFUSION CAPAC ITY (DLCO) LUNG DIFFUSION CAPACITY (DLCO) PFT Routine Cardiomyopathy, ischemic Controlled type 2 diabetes mellitus without complication, unspecified whether retirement insulin use (HCC) Shortness of breath Heart disease Pre-operative cardiovascular examination Atherosclerosis of coronary artery of [place] heart, unspecified vessel or lesion type, unspecified whether angina present 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 Ordered: 06/25/2021 [facility] Work Phone: Comment on above: Ordered: 06/25/2021 NM PET/CT CARDIAC PE RF REST/STRESS NM PET/CT CARDIAC PERF REST/STRESS Radiology Routine Cardiomyopathy, ischemic Controlled type 2 diabetes mellitus without complication, unspecified whether ad terminal makeup operator insulin use (HCC) Shortness of breath Heart disease Pre-operative cardiovascular examination Atherosclerosis of coronary artery of [place] heart, unspecified vessel or lesion type, unspecified whether angina present 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 Ordered: 06/25/2021 [facility] Work Phone: Comment on above: Ordered: 06/25/2021 NM PET/CT CARDIAC VIABILITY NM PET/CT CARDIAC VIABILITY Radiology Routine Cardiomyopathy, ischemic Controlled type 2 diabetes mellitus without complication, unspecified whether ad terminal makeup operator insulin use (HCC) Shortness of breath Heart disease Pre-operative cardiovascular examination Atherosclerosis of coronary artery of [place] heart, unspecified vessel or lesion type, unspecified whether angina present 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 Ordered: 06/25/2021 [facility] Work Phone: Comment on above: Ordered: 06/25/2021 End: 05-16-2023 Non-gynecological cytology method study [facility] Service Area Work Phone: Comment on above: Once (Lab) for 1 Occurrences starting until 05/16/2023 PVR ANK PRESS [facility] PVR AN K PRESS [facility] Vascular Lab Routine Cardiomyopathy, ischemic Controlled type 2 diabetes mellitus without complication, unspecified whether ad terminal makeup operator insulin use (HCC) Shortness of breath Heart disease Pre-operative cardiovascular examination Atherosclerosis of coronary artery of [place] heart, unspecified vessel or lesion type, unspecified whether angina present 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 Ordered: 06/25/2021 [facility] Work Phone: Comment on above: Ordered: 06/25/2021 End: 07-25-2022 Radiologic exam chest 2 views XR CHEST 2V FRONTAL/LAT Radiology Routine Cardiomyopathy, ischemic Controlled type 2 diabetes mellitus without complication, unspecified whether ad terminal makeup operator insulin use (HCC) Shortness of breath Heart disease Pre-operative cardiovascular examination Atherosclerosis of coronary artery of [place] heart, unspecified vessel or lesion type, unspecified whether angina present 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 1 Occurrences starting 06/25/2021 until 07/25/2022 [facility] Work Phone: Comment on above: 1 Occurrences starting 06/25/2021 until 07/25/2022 End: 05-16-2023 Respiratory care eval and treat Respiratory care eval and treat Respiratory Care Routine Once for 1 Occurrences starting 05/16/2023 until 05/16/2023 [facility] Work Phone: Comment on above: Once for 1 Occurrences starting 05/16/19 until 05/16/2023 SPIROMETRY BASELINE ONLY [facility] Work Phone: Comment on above: Ordered: 06/25/2021 End: 05-15-2023 Urinalysis complete W Reflex Culture panel - Urine [facility] Service Area Work Phone: Comment on above: Once (Lab) for 1 Occurrences starting until 05/15/2023 End: 06-25-2022 US CAROTID ARTERIES [facility] US CAROTID ARTERIES [facility] Vascular Lab Routine Cardiomyopathy, ischemic Controlled type 2 diabetes mellitus without complication, unspecified whether ad terminal makeup operator insulin use (HCC) Shortness of breath Heart disease Pre-operative cardiovascular examination Atherosclerosis of coronary artery of [place] heart, unspecified vessel or lesion type, unspecified whether angina present 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 1 Occurrences starting 06/25/2021 until 06/25/2022 [facility] Work Phone: Comment on above: 1 Occurrences starting 06/25/2021 until 06/25/2022 US LEG VEIN MAP [facility] US LEG VEIN MAP [facility] Vascular Lab Routine Cardiomyopathy, ischemic Controlled type 2 diabetes mellitus without complication, unspecified whether retirement insulin use (HCC) Shortness of breath Heart disease Pre-operative cardiovascular examination Atherosclerosis of coronary artery of [place] heart, unspecified vessel or lesion type, unspecified whether angina present 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 Ordered: 06/25/2021 [facility] Work Phone: Comment on above: Ordered: 06/25/2021 [facility] Immunizations Immunization Date Immunization Notes Care Provider Gregory tineo 01-13-2022 tetanus toxoid, redu esperanza diphtheria toxoid, and acellular pertussis vaccine, adsorbed Macy Narinder Other Phone: [facility] 12-21-2011 influenza virus vacc ine, unspecified formulation Tevin Knight MD Work Phone: [facility] 11-28-2010 influenza virus vacc ine, unspecified formulation Tevin Knight MD Work Phone: [facility] Work Phone: 12-01-2008 pneumococcal polysaccharide vaccine, 23 valent Kiley Dudley RN Work Phone: [facility] Payers Date Payer Category Payer Medicare (Managed Care) [employer]IC[employer] [id number] 2022 Medicare [id number] 2021 Medicare [employer] [id number] 2021-Present [phone] [address] [place] [phone] O [id number] 2021 Medicare [id number] 2018 Medicare [employer]NA MEDICARE HU[employer]NA MEDICARE PPO [id number] 2018-Present [phone] [address] [address] [place] [address] PPO [id number] 1945 Unknown [id number] [id number] 1945 Unknown [id number]. 2.1245 1945 Unknown [id number]. 2.1247 1945 Unknown [id number]. 2.1243 1945 Unknown [id number]. 2.124 1945 Unknown [id number]. 2.124 1945 Unknown [id number] [id number]. 2.124 1945 Unknown [id number] [id number] 1945 Unknown [id number]. 2.903 1945 Unknown [id number] [id number] 1945 Unknown [id number] [id number] Unknown Social History Date Type Detail Facility Start: 01-14-2022 End: 11-05-2023 Tobacco smoking status NHIS Ex-smoker [facility] End: 03-03-2013 History of tobacco use Current smoker [facility] End: 03-03-2013 History of tobacco use Cigarette Smoker [facility] Start: 11-05-2013 End: 01-22-2023 Alcohol intake Current drinker of alcohol (finding) [facility] Start: 1945 Sex Assigned At Not on file [facility] Start: 06-16-2021 End: 12-26-2023 Exposure to SARS-CoV-2 (event) Not sure [facility] Start: 07-24-2021 End: 03-31-2023 Alcohol intake Ex-drinker (finding) [facility] Tobacco smoking consumption unknown [facility] Start: 01-14-2022 End: 11-05-2023 Tobacco use and exposure Smokeless tobacco non-user [facility] Start: 01-14-2022 Alcohol Comment rare [facility] Start: 01-06-2023 End: 11-05-2023 History of Social function [facility] Start: 01-06-2023 End: 11-05-2023 Humiliation, Afraid, Rape, and Kick questionnaire [HARK] [facility] Within the last year , have you been afraid of your partner or ex-partner? No [facility] How often to you hav e a drink containing alcohol? Never [facility] How many standard dr inks containing alcohol do you have on a typical day? Patient does not drink [facility] Start: 1945 Sex Assigned At Male [facility] Start: 01-09-2023 Gender identity Identifies as male gender (finding) [facility] Start: 01-22-2023 Alcohol Comment OCC [facility] Start: 05-15-2023 End: 12-26-2023 Alcohol intake Lifetime non-drinker (finding) [facility] Work Phone: How hard is it for y ou to pay for the very basics like food, housing, medical care, and heating Not very hard [facility] Work Phone: Medical Equipment Procedure Code Equipment Code Equipment Origin al Text Equipment Identifier Dates Stent Uret 7fr 2 6cm W/O Gw Inl - [id number] Start: 11-13-2010 Comment on above: Description: string removed STENT URET 7FR 26CM W/O GW INL - [id number] Stent Uret 7fr 2 6cm W/O Gw Inl - [id number] Start: 11-13-2010 Comment on above: Description: string removed STENT URET 7FR 26CM W/O GW INL - [id number] Clip Atriclip [place] 180d Long 35mm 25mm Internal Head - [id number] Start: 07-27-2021 Graft Gelweave 1 0mm Straight Gelatin Polyester Woven 30cm Cardiovascular - [id number] Start: 07-27-2021 Band Monreal Ancor e 35.8mm 29.8mm 27mm 67mm Annuloplasty Chordal Guide System - [id number] Start: 07-27-2021 [place] Thk1.65mm P tfe [id number] Cardiovascular Patch Sterile - [id number] Start: 07-27-2021 Pump Impella Ventricular Assist 5.5 Smart Assist Us - [id number] Start: 07-27-2021 Valve Aort 25mm Crp-Ed Thfx - [id number] Start: 07-27-2021 Cath Evd Bactise al - [id number] Start: 01-07-2023 Cover Micro Bur Hl W/Tab 10mm - [id number] Start: 01-07-2023 1.5 Mm Self-Dril ling Screw, [id number] Start: 01-07-2023 Cath Evd Bactise al - [id number] Start: 01-07-2023 Plate Shunt Unv3 14mm W/Tab - [id number] Start: 01-07-2023 Pacemaker System , Micra [id number], With Introducer - [id number] - [id number] Start: 11-06-2023 Clinical Notes 11-02-2010 to 01-02-2024 Discharge InstructionsAttachmentsKen Fuller MD - 12/26/2023 2:45 PM Elvira Fuller MD - 12/26/2023 2:45 PM Tobin Willams MD - 06/23/2023 8:45 AM EDTDischarge InstructionsPharmacy Note Date & Type Note Facility 01-02-2024 Note [facility] PROGRESS NOTE Assessment and Plan Ada June is a 78 y.o. 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 No head injury. No loss of consciousness CT head: Negative for acute intracranial abnormalities. 2 right-sided and 2 left-sided surgical and frontal audie holes noted, new compared to imaging from 2021 CT hip right revealed acute, mildly comminuted, nondisplaced intra-articular fracture extending from the anterior aspect of the acetabulum through the medial wall of the acetabulum into the posterior aspect of the acetabulum. Cleared by trauma/Ortho. No acute surgical intervention Vitamin D 42 Pain management with tramadol prn, tylenol prn and morphine prn Fall precautions PT/OT evaluation, patient currently lives at her assisted living facility. 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 Appears compensated. Home regimen: Eliquis 5 mg twice daily, atorvastatin 20 mg daily, spironolactone 25 mg daily, Lasix 40 mg daily, hydralazine 100 mg 3 times daily, amlodipine 10 mg daily, Toprol-XL 25 mg daily Most recent BP 156/49. Hold home Lasix, Toprol-XL, Will restart spironolactone, hydralazine for better control of BP on 01/02/2024 Continue home Eliquis, atorvastatin, and amlodipine. History of type 2 diabetes mellitus Most recent hemoglobin A1c 5.3 on 08/07/2021 Inpatient blood glucose goal 140-180. Most recent blood glucose 149 Low-dose sliding scale insulin and hypoglycemia protocol in place Monitor POC glucose GERD Continue Protonix Depression Continue Remeron 7.5 nightly Constipation Start patient on stool softener and MiraLAX daily Dulcolax suppository as needed KUB ordered on 01/01, no ileus or mechanical obstruction Mag milk ordered the patient Urinary retention S/p Chu insertion Continue Chu for now, consult urology Resolved acute medical issues Discharge Planning Medically Stable for Discharge Date: TBD Patient requires continued hospitalization due to: S/P FALL, right humerus and acetabulum fracture Discharge Location: [facility] Quality Measures DVT Prophylaxis: eliquis Chu Catheter: absent Code Status Primary Contact Information Subjective Patient was seen and examined today morning at bedside. Still complaining of constipation, last BM was 6 days ago, KUB was ordered, mag milk is going to be given to the patient today. Encouraged the patient for OOB and work with PT OT. Discussed with the patient at bedside treatment plan as able answer all his questions. Objective BP (!) 166/64 Pulse (!) 50 Temp 98.2 degrees F (36.8 degrees C) (Oral) Resp 14 Ht 6' 3 Wt 84.4 kg (186 lb) SpO2 95% BMI 23.25 kg/m Physical Examination General Appearance: alert; well appearing; in no acute distress HEENT: Head- normocephalic; Eyes- EOMI, sclera anicteric; Throat- mucous membranes moist Cardiovascular: regular rate and rhythm; normal S1, S2; no murmurs, rubs, clicks or gallops; peripheral edema absent Respiratory: lungs clear to auscultation; without wheezes, rales or rhonchi; on room air Abdomen: soft, non-tender, non-distended Neurological: oriented x 3; normal speech; no focal findings or movement disorder noted Musculoskeletal:limited range of motion over the right shoulder, sling in place Skin: normal coloration Psych: normal mood and affect AUTHENTICATED BY TAMMY TRAN, ON 01/02/2024 12:48:24 [facility] 01-01-2024 Note [facility] PROGRESS NOTE Assessment and Plan Ada June is a 78 y.o. 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 No head injury. No loss of consciousness CT head: Negative for acute intracranial abnormalities. 2 right-sided and 2 left-sided surgical and frontal audie holes noted, new compared to imaging from 2021 CT hip right revealed acute, mildly comminuted, nondisplaced intra-articular fracture extending from the anterior aspect of the acetabulum through the medial wall of the acetabulum into the posterior aspect of the acetabulum. Cleared by trauma/Ortho. No acute surgical intervention Vitamin D 42 Pain management with tramadol prn, tylenol prn and morphine prn Fall precautions PT/OT evaluation, patient currently lives at her assisted living facility. May need rehab on discharge Atrial fibrillation with controlled ventricular response, on Eliquis Combined systolic and diastolic heart failure History of head trauma with subdural hemorrhage Bradycardia, intermittent, in setting of above Hypertension Hyperlipidemia Rate intermittently in mid 50s during interview and examinations Suspected to be symptomatic in setting of recurrent, frequent, falls No echo on record. Appears compensated. Pending further evaluation. BNP, troponin, chest x-ray, EKG pending Home regimen: Eliquis 5 mg twice daily, atorvastatin 20 mg daily, spironolactone 25 mg daily, Lasix 40 mg daily, hydralazine 100 mg 3 times daily, amlodipine 10 mg daily, Toprol-XL 25 mg daily Most recent BP 156/49. Hold home Lasix, hydralazine, Toprol-XL, spironolactone Heart rate goal less than 110 Continue home Eliquis, atorvastatin, and amlodipine. History of type 2 diabetes mellitus Most recent hemoglobin A1c 5.3 on 08/07/2021 Inpatient blood glucose goal 140-180. Most recent blood glucose 149 Low-dose sliding scale insulin and hypoglycemia protocol in place Monitor POC glucose GERD Continue Protonix Depression Continue Remeron 7.5 nightly Constipation Start patient on stool softener and MiraLAX daily Dulcolax suppository as needed Resolved acute medical issues Discharge Planning Medically Stable for Discharge Date: TBD Patient requires continued hospitalization due to: S/P FALL, right humerus and acetabulum fracture Discharge Location: ECF Quality Measures DVT Prophylaxis: eliquis Chu Catheter: absent Code Status Primary Contact Information Subjective Patient resting comfortably. Complains of constipation Patient complains of 6 out of 10 right shoulder pain Increase activity Objective BP (!) 173/67 Pulse (!) 51 Temp 98.1 degrees F (36.7 degrees C) (Oral) Resp 18 Ht 6' 3 Wt 84.4 kg (186 lb) SpO2 96% BMI 23.25 kg/m Physical Examination General Appearance: alert; well appearing; in no acute distress HEENT: Head- normocephalic; Eyes- EOMI, sclera anicteric; Throat- mucous membranes moist Cardiovascular: regular rate and rhythm; normal S1, S2; no murmurs, rubs, clicks or gallops; peripheral edema absent Respiratory: lungs clear to auscultation; without wheezes, rales or rhonchi; on room air Abdomen: soft, non-tender, non-distended Neurological: oriented x 3; normal speech; no focal findings or movement disorder noted Musculoskeletal:limited range of motion over the right shoulder, sling in place Skin: normal coloration Psych: normal mood and affect AUTHENTICATED BY ALEAH ARMENDARIZ, ON 01/01/2024 14:40:08 [facility] 12-31-2023 Note [facility] PROGRESS NOTE Assessment and Plan Ada June is a 78 y.o. 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 No head injury. No loss of consciousness CT head: Negative for acute intracranial abnormalities. 2 right-sided and 2 left-sided surgical and frontal audie holes noted, new compared to imaging from 2021 CT hip right revealed acute, mildly comminuted, nondisplaced intra-articular fracture extending from the anterior aspect of the acetabulum through the medial wall of the acetabulum into the posterior aspect of the acetabulum. Cleared by trauma/Ortho. No acute surgical intervention Vitamin D 42 B12/folate, BNP, troponin, EKG pending Pain management Fall precautions PT/OT evaluation, patient currently lives at her assisted living facility. May need rehab on discharge Atrial fibrillation with controlled ventricular response, on Eliquis Combined systolic and diastolic heart failure History of head trauma with subdural hemorrhage Bradycardia, intermittent, in setting of above Hypertension Hyperlipidemia Rate intermittently in mid 50s during interview and examinations Suspected to be symptomatic in setting of recurrent, frequent, falls No echo on record. Appears compensated. Pending further evaluation. BNP, troponin, chest x-ray, EKG pending Home regimen: Eliquis 5 mg twice daily, atorvastatin 20 mg daily, spironolactone 25 mg daily, Lasix 40 mg daily, hydralazine 100 mg 3 times daily, amlodipine 10 mg daily, Toprol-XL 25 mg daily Most recent BP 156/49. Hold home Lasix, hydralazine, Toprol-XL, spironolactone Heart rate goal less than 110 Continue home Eliquis, atorvastatin, and amlodipine. History of type 2 diabetes mellitus Most recent hemoglobin A1c 5.3 on 08/07/2021 Inpatient blood glucose goal 140-180. Most recent blood glucose 149 Low-dose sliding scale insulin and hypoglycemia protocol in place Monitor POC glucose GERD Continue Protonix Depression Continue Remeron 7.5 nightly Resolved acute medical issues Discharge Planning Medically Stable for Discharge Date: TBD Patient requires continued hospitalization due to: S/P FALL, right humerus and acetabulum fracture Discharge Location: [facility] Quality Measures DVT Prophylaxis: eliquis Chu Catheter: absent Code Status Primary Contact Information Subjective Patient resting comfortably Complains of 8/10 pain over his right shoulder Increase activity Objective BP (!) 154/74 Comment: rn notified Pulse (!) 57 Comment: rn notified Temp 97.7 degrees F (36.5 degrees C) Resp 18 Ht 6' 3 Wt 84.4 kg (186 lb) SpO2 96% BMI 23.25 kg/m Physical Examination General Appearance: alert; well appearing; in no acute distress HEENT: Head- normocephalic; Eyes- EOMI, sclera anicteric; Throat- mucous membranes moist Cardiovascular: regular rate and rhythm; normal S1, S2; no murmurs, rubs, clicks or gallops; peripheral edema absent Respiratory: lungs clear to auscultation; without wheezes, rales or rhonchi; on room air Abdomen: soft, non-tender, non-distended Neurological: oriented x 3; normal speech; no focal findings or movement disorder noted Musculoskeletal:limited range of motion over the right shoulder, sling in place Skin: normal coloration Psych: normal mood and affect AUTHENTICATED BY ALEAH ARMENDARIZ ON 12/31/2023 14:05:39 [facility] 12-30-2023 Note [facility] HISTORY AND PHYS ICAL -- [facility] Patient Name: Ada June : 1945 MR #: [id number] Admit Date: 12/30/2023 Physicians: Rowena, Physician (Family); Brian Hurtado DO (Referring) Ada June is a 78 y.o. 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 No head injury. No loss of consciousness CT head: Negative for acute intracranial abnormalities. 2 right-sided and 2 left-sided surgical and frontal audie holes noted, new compared to imaging from 2021 CT hip right revealed acute, mildly comminuted, nondisplaced intra-articular fracture extending from the anterior aspect of the acetabulum through the medial wall of the acetabulum into the posterior aspect of the acetabulum. Cleared by trauma/Ortho. No acute surgical intervention Vitamin D 42 B12/folate, BNP, troponin, EKG pending Pain management Fall precautions PT/OT evaluation Continuous telemetry Atrial fibrillation with controlled ventricular response, on Eliquis Combined systolic and diastolic heart failure History of head trauma with subdural hemorrhage Bradycardia, intermittent, in setting of above Hypertension Hyperlipidemia Rate intermittently in mid 50s during interview and examinations Suspected to be symptomatic in setting of recurrent, frequent, falls No echo on record. Appears compensated. Pending further evaluation. BNP, troponin, chest x-ray, EKG pending Home regimen: Eliquis 5 mg twice daily, atorvastatin 20 mg daily, spironolactone 25 mg daily, Lasix 40 mg daily, hydralazine 100 mg 3 times daily, amlodipine 10 mg daily, Toprol-XL 25 mg daily Most recent BP 156/49. Hold home Lasix, hydralazine, Toprol-XL, spironolactone Heart rate goal less than 110 Continue home Eliquis, atorvastatin, and amlodipine. Resume rest of the hypertensives as tolerated Considering cardiology consult for assistance with inpatient optimization Continuous telemetry Fall precautions History of type 2 diabetes mellitus Most recent hemoglobin A1c 5.3 on 08/07/2021 Inpatient blood glucose goal 140-180. Most recent blood glucose 149 Low-dose sliding scale insulin and hypoglycemia protocol in place Monitor POC glucose GERD Continue Protonix Concern for uncontrolled depression Intermittently tearful during interview and examination. No SI. Previously on 15 mg nightly of Remeron. Resume with reduced dose of Remeron 7.5 nightly Polypharmacy Need for medication reconciliation Lives in assisted living Does have current and past medications listed as current Will confirm with pharmacy, and resume current medications as tolerated Need for goals of care clarifications Per chart review, patient was DNR-CC at some point Currently being treated outpatient. Currently full code - unverified Pending verification Residence prior to admission: ECF/SNF Was patient transferred from outlying hospital or ED no Quality Measures DVT Prophylaxis: eliquis Chu Catheter: absent Medication Reconciliation: Unverified--pending verification Admitted with these risk variables: Please see assessment and plan for further details. Estimated Date of Discharge greater than 2 midnights Code Status Full Code; unverified; reason pending verification Chief Complaint fall History of Present Illness Ada June is a 78 y.o. 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 Patient seen and examined at bedside. Right upper extremity stabilized. Patient reports a fall prior to presentation. States that he is rollator moved and he could not hold himself. He did fell forward on right side with hip injury. No head trauma. No loss of consciousness. Patient denies any current or recent illness. He denies any fever, chills, shortness of breath, lightheadedness, dizziness, nausea, vomiting, dysuria, urinary frequency, or urgency. He denies any change in bowel movement. Patient was seen by trauma. Current right hip fracture nonoperative. Medical management recommended. Patient admitted to [facility] (more content not included)... [facility] 12-30-2023 Note [facility] SURGICAL HISTORY & PHYSICAL/CONSULTATION NOTE ======== Trauma: Admitted with these risk variables:Cardiac Arrhythmia, CHF, and Coagulation Defect. Please see assessment and plan for further details. INJURIES: Right humerus fracture Right acetabulum fracture ASSESSMENT & PLAN/ACTIVE MEDICAL PROBLEMS: Right humerus Right acetabulum fracture S/p fall on 12/25. Pain with ambulation despite percocet [address] with acetabulum fx. - consult ortho Cardiac Arrhythmia Coagulation Defect Afib on eliquis CHF No s/s of fluid overload at this time On lasix at [facility] Remote Fall On 12/25. - will obtain CT head and c spine DNRCC At [facility], confirmed with patient. INCIDENTAL FINDINGS: N/A. CHIEF COMPLAINT: Hip pain Notification Time: 1645 Arrival at Bedside: 1655 HISTORY OF PRESENT ILLNESS / INJURY (HPI): Mr. June is an 78-year-old male who resides at [facility] who sustained a fall on Monday 12/25. He states he felt his rollator rolling backwards when it went over a curb causing him to fall onto his right side. He was seen at an the [facility] hospital where x-rays were obtained of right humerus and right hip demonstrating a right humerus fracture and he was discharged back to the nursing facility with Percocet. Patient continued to endorse pain with ambulating. He states he was having difficulty bearing weight on his right leg. He was taken back to an the [facility] hospital where CT imaging was done and reported a right hip fracture. Patient was transferred to [facility] for further evaluation. On exam he is alert and oriented x 3 moving all extremities. Has pain to his right hip and right humerus with ecchymosis to his right arm along with a small abrasion along his back. PAST MEDICAL HISTORY (PMH): Past Medical History: Diagnosis Date Atrial fibrillation (HCC) BPH (benign prostatic hyperplasia) CAD (coronary artery disease) Congestive heart failure (CHF) (HCC) GERD (gastroesophageal reflux disease) Hyperlipidemia Hypertension Insomnia Iron deficiency anemia Type 2 diabetes mellitus (HCC) Past Surgical History: Procedure Laterality Date CARDIAC SURGERY CABG x 3 with valve repair and cardiac implant HERNIA REPAIR INGUINAL OPEN scar tissue removal ureter stent scar tissue removal. TOTAL HIP ARTHROPLASTY Left Social History Tobacco Use Smoking status: Former Types: Cigarettes Smokeless tobacco: Never Vaping Use Vaping status: Never Used Substance Use Topics Alcohol use: Yes Comment: rare Drug use: Never History reviewed. No pertinent family history. MEDICATIONS: Eliquis Lasix ALLERGIES: No Known Allergies REVIEW OF SYSTEMS: COVID19 Screen: Negative for fever, cough, SOB, exposure. Constitutional Symptoms: Negative for unexplained falls, weight loss Eyes: Negative for eye pain or vision changes Ears, Nose, Mouth, Throat: Negative for rhinorrhea, nasal pain, dysphagia, hoarseness Cardiovascular: Negative for chest pain, orthopnea, edema Respiratory: Negative for cough, shortness of breath Gastrointestinal: Negative for abdominal pain, nausea, vomiting, diarrhea Genitourinary: Negative for dysuria, hematuria Musculoskeletal: Right shoulder and hip pain Skin/Breast: Negative for rash, itching, lesions Neurological: Negative for paresthesia, paralysis, loss of bowel or bladder control, loss of consciousness Psychiatric: Negative for depression, anxiety, or suicidal ideations Endocrine: Negative for heat/cold intolerance, polydipsia, polyphagia, polyuria Hematologic/Lymphatic: Negative for antiplatelet use, family hx of clotting or bleeding disorders. +anticoagulant use. Allergic/Immunologic: Allergies reviewed, no use of immunosuppressants or active chemotherapy Other than the above items, the remainder of a complete review of systems is otherwise negative. PHYSICAL EXAM: BP (!) 173/70 Pulse 60 Temp 97.9 degrees F (36.6 degrees C) (Oral) Resp (!) 21 Ht 6' 3 Wt 84.4 kg (186 lb) SpO2 94% BMI 23.25 kg/m Body mass index is 23.25 kg/m . GENERAL: Appears age appropriate. NEUROLOGICAL: Alert and oriented X 3. Follows commands with extremities x4. No focal neurologic deficits noted. GCS = 15 Head Eyes Ear Nose Throat: Head: Atraumatic, normocephalic. Neck: Supple, trachea midline, no midline tenderness, step offs, bony crepitus. CARDIOVASCULAR: irregular rate and rhythm. A-fib. No peripheral edema noted. 2+ pulses radial/DP/PT bilaterally. RESPIRATORY: Lungs, clear to auscultation bilaterally. Respiratory effort unlabored without use of accessory muscles. ABDOMINAL: Rounded, soft, nontender, nondistended. No guarding or peritoneal signs. GENITOURINARY: Normal genitalia for age without lesion or trauma. MUSCULOSKELETAL: Extremities atraumatic without (more content not included)... [facility] 12-26-2023 Hospital Discharge instructions Ken Fuller MD - 12/26/2023 4:28 PM EDT SLING AND SWATHE ICE REST PERCOCET FOR PAIN ORTHOPEDIC FOLLOW UP NEXT WEEK The following attachments cannot be sent through Care Everywhere.Preventing Falls ED (Kazakh)Upper Arm Fracture ED (Kazakh)documented in this encounter [facility] Work Phone: 12-26-2023 Emergency department Note Images from the original note were not included. Chief Complaint: FALL This is an 78-year-old male who was sitting in a rollator outside apparently the front wheels slipped onto the dirt lurching the rollator sideways causing him to fall out and landed on pavement on his right hip and right shoulder he complains of pain in both both areas mostly in the right shoulder. Paramedics brought him here to the emergency department. Denies any head and neck injury denies any rib pains he was able to relate minimally and able to move his right leg after the fall. He has had left hip replacement in the past and has had a subdural hematoma evacuated with a craniotomy on the right side from a previous fall also. He thinks he still is on anticoagulants. He denies any head or neck injury at this time Review of Systems Constitutional: Negative for chills. HENT: Negative. Eyes: Negative. Respiratory: Negative. Cardiovascular: Negative. Gastrointestinal: Negative for abdominal pain, nausea and vomiting. Genitourinary: Negative for flank pain. Musculoskeletal: Positive for arthralgias, joint swelling and myalgias. Negative for neck pain and neck stiffness. Skin: Negative for wound. Neurological: Negative for dizziness, weakness and light-headedness. Hematological: Bruises/bleeds easily. Psychiatric/Behavioral: Negative. All other systems reviewed and are negative. Physical Exam Vitals reviewed. Constitutional: Appearance: He is obese. Comments: Is awake and coherent able answer questions appropriately has had some mild discomfort currently but not toxic in appearance HENT: Head: Normocephalic and atraumatic. Right Ear: Tympanic membrane normal. Left Ear: Tympanic membrane normal. Nose: Nose normal. Mouth/Throat: Mouth: Mucous membranes are dry. Pharynx: Oropharynx is clear. Eyes: Extraocular Movements: Extraocular movements intact. Conjunctiva/sclera: Conjunctivae normal. Pupils: Pupils are equal, round, and reactive to light. Cardiovascular: Rate and Rhythm: Normal rate. Pulses: Normal pulses. Heart sounds: No murmur heard. Pulmonary: Effort: Pulmonary effort is normal. Breath sounds: Normal breath sounds. Comments: No rib tenderness there is no crepitus no bruising to the ribs Abdominal: General: Bowel sounds are normal. There is no distension. Palpations: Abdomen is soft. There is no mass. Tenderness: There is no abdominal tenderness. There is no right CVA tenderness or left CVA tenderness. Hernia: No hernia is present. Musculoskeletal: Right shoulder: Swelling, effusion, tenderness and bony tenderness present. Decreased range of motion. Arms: Cervical back: Normal range of motion and neck supple. No rigidity or tenderness. Right hip: Tenderness and bony tenderness present. No deformity. Normal range of motion. Legs: Skin: General: Skin is warm and dry. Capillary Refill: Capillary refill takes less than 2 seconds. Findings: No bruising or erythema. Neurological: General: No focal deficit present. Mental Status: He is alert. Sensory: No sensory deficit. Motor: No weakness. Psychiatric: Mood and Affect: Mood normal. Behavior: Behavior normal. Labs Reviewed - No data to display XR shoulder right 2+ views Final Result Oblique mildly displaced acute fracture of the metaphysis of the proximal right humerus. Signed by Ramone Matute MD XR hip right with pelvis when performed 2 or 3 views Final Result Moderate degenerative changes within the right hip joint. Signed by Camron Sin MD Procedures Medical Decision Making Ivorian diagnose include right shoulder contusion right shoulder fracture humeral head fracture AC joint separation right hip contusion right hip fracture. Patient was given morphine sulfate 2 mg intravenously for pain and x-rays of the right shoulder and hip and pelvis were ordered at this time. Strays of the hip and pelvis were negative x-rays of the right shoulder showed a humeral head and a proximal humerus fracture. Sling and swath was applied. Patient will follow-up with orthopedics for follow-up either or [facility] where he has been seen in the past for fracture Diagnoses as of 12/26/23 163 Fall, initial encounter Contusion of right hip, initial encounter Humeral head fracture, right, closed, initial encounter Closed fracture of proximal end of right humerus, unspecified fracture morphology, initial encounter Ken Fuller MD 12/26/23 1630 documented in this encounter [facility] Work Phone: 12-26-2023 Physician Emergency department Note Images from the original note were not included. Chief Complaint: FALL This is an 78-year-old male who was sitting in a rollator outside apparently the front wheels slipped onto the dirt lurching the rollator sideways causing him to fall out and landed on pavement on his right hip and right shoulder he complains of pain in both both areas mostly in the right shoulder. Paramedics brought him here to the emergency department. Denies any head and neck injury denies any rib pains he was able to relate minimally and able to move his right leg after the fall. He has had left hip replacement in the past and has had a subdural hematoma evacuated with a craniotomy on the right side from a previous fall also. He thinks he still is on anticoagulants. He denies any head or neck injury at this time Review of Systems Constitutional: Negative for chills. HENT: Negative. Eyes: Negative. Respiratory: Negative. Cardiovascular: Negative. Gastrointestinal: Negative for abdominal pain, nausea and vomiting. Genitourinary: Negative for flank pain. Musculoskeletal: Positive for arthralgias, joint swelling and myalgias. Negative for neck pain and neck stiffness. Skin: Negative for wound. Neurological: Negative for dizziness, weakness and light-headedness. Hematological: Bruises/bleeds easily. Psychiatric/Behavioral: Negative. All other systems reviewed and are negative. Physical Exam Vitals reviewed. Constitutional: Appearance: He is obese. Comments: Is awake and coherent able answer questions appropriately has had some mild discomfort currently but not toxic in appearance HENT: Head: Normocephalic and atraumatic. Right Ear: Tympanic membrane normal. Left Ear: Tympanic membrane normal. Nose: Nose normal. Mouth/Throat: Mouth: Mucous membranes are dry. Pharynx: Oropharynx is clear. Eyes: Extraocular Movements: Extraocular movements intact. Conjunctiva/sclera: Conjunctivae normal. Pupils: Pupils are equal, round, and reactive to light. Cardiovascular: Rate and Rhythm: Normal rate. Pulses: Normal pulses. Heart sounds: No murmur heard. Pulmonary: Effort: Pulmonary effort is normal. Breath sounds: Normal breath sounds. Comments: No rib tenderness there is no crepitus no bruising to the ribs Abdominal: General: Bowel sounds are normal. There is no distension. Palpations: Abdomen is soft. There is no mass. Tenderness: There is no abdominal tenderness. There is no right CVA tenderness or left CVA tenderness. Hernia: No hernia is present. Musculoskeletal: Right shoulder: Swelling, effusion, tenderness and bony tenderness present. Decreased range of motion. Arms: Cervical back: Normal range of motion and neck supple. No rigidity or tenderness. Right hip: Tenderness and bony tenderness present. No deformity. Normal range of motion. Legs: Skin: General: Skin is warm and dry. Capillary Refill: Capillary refill takes less than 2 seconds. Findings: No bruising or erythema. Neurological: General: No focal deficit present. Mental Status: He is alert. Sensory: No sensory deficit. Motor: No weakness. Psychiatric: Mood and Affect: Mood normal. Behavior: Behavior normal. Labs Reviewed - No data to display XR shoulder right 2+ views Final Result Oblique mildly displaced acute fracture of the metaphysis of the proximal right humerus. Signed by Ramone Matute MD XR hip right with pelvis when performed 2 or 3 views Final Result Moderate degenerative changes within the right hip joint. Signed by Camron Sin MD Procedures Medical Decision Making Ivorian diagnose include right shoulder contusion right shoulder fracture humeral head fracture AC joint separation right hip contusion right hip fracture. Patient was given morphine sulfate 2 mg intravenously for pain and x-rays of the right shoulder and hip and pelvis were ordered at this time. Strays of the hip and pelvis were negative x-rays of the right shoulder showed a humeral head and a proximal humerus fracture. Sling and swath was applied. Patient will follow-up with orthopedics for follow-up either or [facility] where he has been seen in the past for fracture Diagnoses as of 12/26/23 1630 Fall, initial encounter Contusion of right hip, initial encounter Humeral head fracture, right, closed, initial encounter Closed fracture of proximal end of right humerus, unspecified fracture morphology, initial encounter Ken Fuller MD 12/26/23 1630 [facility] Work Phone: 06-23-2023 History of Present illness Narrative NEUROSURGERY and SPINE POST-OP NOTE Patient Name: Ada June Patient : 1945 PCP: Jenelle Oconnell MD History of Present Ilness: Patient is post-op revision of right cranial wound with removal of cranial plate performed on 06/13/23. Patient was discharged with a 1 week course of doxycycline in which he states he has completed. He has noticed no redness swelling or drainage from his incision, denies any fevers or chills. Past Medical History: Past Medical History: Diagnosis Date Benign localized prostatic hyperplasia without lower urinary tract symptoms (LUTS) Chronic systolic (congestive) heart failure (HCC) Essential (primary) hypertension Gastro-esophageal reflux disease without esophagitis Hyperlipemia Insomnia, unspecified Iron deficiency anemia, unspecified Other malaise Traumatic subdural hemorrhage with loss of consciousness (HCC) Unspecified atrial fibrillation (HCC) Unspecified fall, initial encounter Unspecified fracture of shaft of humerus, left arm, initial encounter for closed fracture Past Surgical History: Past Surgical History: Procedure Laterality Date AORTIC VALVE REPLACEMENT CRANIAL SURGERY (HISTORICAL) N/A 06/13/2023 REVISION OF RIGHT POSTERIOR CRANIAL WOUND, REMOVAL OF CRANIAL PLATE Home Medications: Prior to Admission medications Medication Sig Start Date End Date Taking? Authorizing Provider acetaminophen (Tylenol) 500 MG tablet Take 1,000 mg by mouth every 8 hours as needed. Yes Historical Provider, aluminum & magnesium hydroxide-simethicone (Mylanta) 200-200-20 MG/5ML oral suspension Take 15 mL by mouth every 6 hours as needed. Yes Historical Provider, aluminum-magnesium hydroxide 200-200 MG/5ML suspension Take 30 mL by mouth Daily as needed for heartburn. Yes Historical Provider, apixaban (Eliquis) 5 MG tablet Take 5 mg by mouth 2 times daily. Last dose 06/06/[address] Willams's office Yes Historical Provider, Ascorbic Acid (vitamin C) 250 MG tablet Take 500 mg by mouth Daily with lunch. Yes Historical Provider, atorvastatin (Lipitor) 20 MG tablet Take 20 mg by mouth Nightly. Yes Historical Provider, Cholecalciferol (DIALYVITE VITAMIN D 5000 PO) Take 1 tablet by mouth Daily with lunch. Yes Historical Provider, doxycycline (Vibramycin) 100 MG capsule Take 1 capsule (100 mg) by mouth 2 times daily for 10 days. Take with at least 8 ounces (large glass) of water, do not lie down for 30 minutes after 06/13/23 06/23/23 Yes Sonia Garces, OTILIA - FLOOR SWEEPER Ferrex 150 Forte 150-0.025-1 MG capsule Take 1 capsule by mouth Daily with lunch. 05/24/23 Yes Historical Provider, furosemide (Lasix) 40 MG tablet Take 40 mg by mouth in the morning and 40 mg in the evening. 05/21/21 05/17/24 Yes Historical Provider, hydrALAZINE (Apresoline) 50 MG tablet Take 50 mg by mouth in the morning and 50 mg at noon and 50 mg in the evening. Yes Historical Provider, Melatonin 3 MG capsule Take 3 mg by mouth Nightly. Yes Historical Provider, zlwgobhu-ibvvtfrxdh-cdacxayjv (Polysporin) ophthalmic ointment Daily as needed. Yes Historical Provider, omeprazole (PriLOSEC) [address] capsule Take 20 mg by mouth Nightly. Do not crush or chew. Yes Historical Provider, senna-docusate (Kristyn-Colace) 8.6-50 MG tablet Take 1 tablet by mouth 2 times daily as needed for constipation. Yes Historical Provider, spironolactone (Aldactone) 25 MG tablet Take 25 mg by mouth Nightly. Yes Historical Provider, amLODIPine (Norvasc) 10 MG tablet Take 1 tablet (10 mg) by mouth daily. Patient taking differently: Take 10 mg by mouth Nightly. 01/15/23 06/13/23 Katya Oliver PA-C oxyCODONE-acetaminophen (Percocet) 5-325 MG tablet Take 1 tablet by mouth every 6 hours as needed for severe pain (7-10) (pain) for up to 5 days. 06/13/23 06/18/23 Sonia Garces APRN - FLOOR SWEEPER Allergies: Patient has no known allergies. Social History: TOBACCO: reports that he quit smoking about 15 years ago. His smoking use included cigarettes. He does not have any smokeless tobacco history on file. ETOH: reports that he does not currently use alcohol. RECREATIONAL DRUG USE: Social History Substance and Sexual Activity Drug Use Not Currently Family History: No family history on file. Review of Systems: Review of Systems Constitutional: Negative. HENT: Negative. Eyes: Negative. Respiratory: Negative. Cardiovascular: Negative. Gastrointestinal: Negative. Endocrine: Negative. Genitourinary: Negative. Musculoskeletal: Negative. Skin: Negative. Neurological: Negative. Psychiatric/Behavioral: Negative. Physical Examination: Vitals: 06/23/23 0846 BP: (!) 179/66 Pulse: 79 Physical Exam Constitutional: Appearance: Normal appearance. HENT: Head: Normocephalic. Eyes: Extraocular Movements: Extraocular movements intact. Pupils: Pupils are equal, round, and reactive to light. Cardiovascular: Rate and Rhythm: Normal rate. Pulmonary: Effort: Pulmonary effort is normal. Abdominal: Palpations: Abdomen is soft. Musculoskeletal: General: Normal range of motion. Cervical back: Normal range of motion and neck supple. Skin: General: Skin is warm and dry. Neurological: General: No focal deficit present. Mental Status: He is alert. Psychiatric: Mood and Affect: Mood normal. Judgment: Judgment normal. Neurologic Exam Cranial Nerves CN III, IV, Pupils are equal, round, and reactive to light. Incision edges are well-approximated, there is no swelling bleeding or drainage. Thick scab formation over incision site. Reinforced wound care education with patient. Advised not to pick at the scabs. Results Labs: Last 24hrs No results found for this or any previous visit (from the past 24 hour(s)). Radiology Personal review: None for review ASSESSMENT / PLAN : S/P removal of exposed audie hole plate, with reclosure of wound. He is doing very well, the incision is healing well. No evidence of infection. He finished his course of oral abx. He can now follow up with us PRN. He and his son were pleased with his surgical results and progress. Diagnosis Plan 1. SDH (subdural hematoma) (HCC) documented in this encounter [facility] 06-13-2023 Note Formatting of this n ote might be different from the original. Pt has ambulated, voided, and has been given discharge instructions with son at bedside. All questions have been answered. Pt is ready for discharge [facility] 06-13-2023 Note Formatting of this n ote might be different from the original. Pt has ambulated, voided, and has been given discharge instructions with son at bedside. All questions have been answered. Pt is ready for discharge [facility] 06-13-2023 Miscellaneous Notes Pt has ambulated, voided, and has been given discharge instructions with son at bedside. All questions have been answered. Pt is ready for discharge OPERATIVE NOTE Patient Name: Ada June : 1945 DATE OF PROCEDURE: 06/13/2023 SURGEON: Ada Willams MD ACOUSTICAL LOGGING ENGINEER: Sonia Garces CNP PREOPERATIVE DIAGNOSES: Infected R audie hole incision POSTOPERATIVE DIAGNOSES: Same PROCEDURE: I&D of right posterior bur hole incision, with removal of bur hole cover with primary closure ANESTHESIA: General ESTIMATED BLOOD LOSS: Minimal INDICATION FOR PROCEDURE: Mr. June is a 77-year-old gentleman who underwent a bilateral bur hole procedure for subdural hematomas sometime ago. He presented to the neurosurgical office several months ago with an exposed bur hole cover on the right. Risks and benefits of removal of the plate were discussed with him and his family, they eventually decided to have it removed. DESCRIPTION OF PROCEDURE: Patient was brought to the op room general endotracheal esthesia was induced. The right side of his head and previous and bone marked which shaved appropriately he was prepped and draped in the normal sterile fashion. After proper timeout identify the patient, the site of surgery type surgery the incision was fully opened and careful dissection performed to expose the bur hole cover the cranial remover set was used to remove the screws and this allowed the bur hole cover to be removed. We saw several small areas of purulence that were thoroughly irrigated out. A 15 blade was then used to debride the skin edges and then 2-0 Vicryl was used to close the galea followed by oswaldo on the skin. Sterile dressing was placed. He was taken back to recovery room to be discharged home. There is no neurosurgical resident available to assist the case, the nurse practitioner assisted to provide suction retraction assistance with opening and closing allow the case to be performed safely. documented in this encounter [facility] 06-13-2023 Note Patient: Ada June Procedure Summary Date: 06/13/23 Room / Location: [facility] OR [address] [place] [address] Operating Room Anesthesia Start: 1115 Anesthesia Stop: Procedure: REVISION OF RIGHT POSTERIOR CRANIAL WOUND, REMOVAL OF CRANIAL PLATE (Head) Diagnosis: Traumatic subdural hemorrhage with loss of consciousness status unknown, initial encounter (HCC) (Traumatic subdural hemorrhage with loss of consciousness status unknown, initial encounter (HCC) [S06.5XAA]) Surgeons: Ada Willams MD Responsible Provider: Del Anguiano DO Anesthesia Type: general ASA Status: 3 Anesthesia Type: general Vitals Value Taken Time BP 172/70 06/13/23 1208 Temp 36.1 ?C (97 ?F) 06/13/23 1204 Pulse 55 06/13/23 1207 Resp 15 06/13/23 1204 SpO2 99 % 06/13/23 1207 Vitals shown include unfiled device data. Anesthesia Post Evaluation Patient location during evaluation: PACU Patient participation: complete - patient participated Level of consciousness: awake and alert Pain management: satisfactory to patient Airway patency: patent Dental Injury: no Cardiovascular status: acceptable, blood pressure returned to baseline and hemodynamically stable Respiratory status: acceptable and spontaneous ventilation Hydration status: euvolemic Nausea/Vomiting: controlled No notable events documented. Patient can be discharged once all PACU criteria has been met. [facility] 06-13-2023 Note Patient: Ada June Procedure Summary Date: 06/13/23 Room / Location: [address] Operating Room Anesthesia Start: 1115 Anesthesia Stop: Procedure: REVISION OF RIGHT POSTERIOR CRANIAL WOUND, REMOVAL OF CRANIAL PLATE (Head) Diagnosis: Traumatic subdural hemorrhage with loss of consciousness status unknown, initial encounter (HCC) (Traumatic subdural hemorrhage with loss of consciousness status unknown, initial encounter (HCC) [S06.5XAA]) Surgeons: Ada Willams MD Responsible Provider: Del Anguiano DO Anesthesia Type: general ASA Status: 3 Anesthesia Type: general Vitals Value Taken Time BP 172/70 06/13/23 1208 Temp 36.1 ?C (97 ?F) 06/13/23 1204 Pulse 55 06/13/23 1207 Resp 15 06/13/23 1204 SpO2 99 % 06/13/23 1207 Vitals shown include unfiled device data. Anesthesia Post Evaluation Patient location during evaluation: PACU Patient participation: complete - patient participated Level of consciousness: awake and alert Pain score: 0 Pain management: satisfactory to patient Multimodal analgesia pain management approach Airway patency: patent Two or more strategies used to mitigate risk of obstructive sleep apnea Cardiovascular status: acceptable and hemodynamically stable Respiratory status: acceptable Hydration status: acceptable No notable events documented. Anesthesia Post Evaluation I completed my handoff to the receiving clinician during which we: 1. Identified the patient 2. Identified the responsible provider 3. Reviewed the pertinent medical history 4. Discussed the surgical course 5. Reviewed intra-op anesthesia management and issues during anesthesia 6. Set expectations for post-procedure period 7. Allowed opportunity for questions and acknowledgement of understanding. [facility] 06-13-2023 Note Airway Date/Time: 06/13/2023 11:22 AM Urgency: scheduled Airway not difficult General Information and Staff Patient location during procedure: Procedural Resident/MORTGAGE LOAN COUNSELOR: OTILIA Landa CRNA Performed: SRNA Indications and Patient Condition Indications for airway management: anesthesia Sedation level: Asleep Preoxygenated: yes Patient position: sniffing Mask difficulty assessment: 1 - vent by mask Final Airway Details Final airway type: endotracheal airway Successful airway: ETT Cuffed: yes Successful intubation technique: direct laryngoscopy Facilitating devices/methods: intubating stylet Endotracheal tube insertion site: oral Blade: Samantha Blade size: #4 ETT size (mm): 8.0 Cormack-Lehane Classification: grade I - full view of glottis Placement verified by: capnometry Measured from: lips ETT to lips (cm): 22 Number of attempts at approach: 1 [facility] 06-13-2023 Hospital Discharge instructions OTILIA Carroll CNP - 06/13/2023 12:17 PM EDT Patient may remove dressing tomorrow morning. Incision has oswaldo and is safe to be open to air Wash incision daily with warm soapy water or Clint's baby soap Do not apply ointments or lotions to the incision Complete full course of antibiotics; make sure to eat yogurt/cheeses. Antibiotic may cause Stomach upset. Call the office for any questions of concerns documented in this encounter [facility] 06-13-2023 Note Formatting of this n ote might be different from the original. OPERATIVE NOTE Patient Name: Ada June : 1945 DATE OF PROCEDURE: 06/13/2023 SURGEON: Ada Willams MD ACOUSTICAL LOGGING ENGINEER: Sonia Garces CNP PREOPERATIVE DIAGNOSES: Infected R audie hole incision POSTOPERATIVE DIAGNOSES: Same PROCEDURE: I&D of right posterior bur hole incision, with removal of bur hole cover with primary closure ANESTHESIA: General ESTIMATED BLOOD LOSS: Minimal INDICATION FOR PROCEDURE: Mr. June is a 77-year-old gentleman who underwent a bilateral bur hole procedure for subdural hematomas sometime ago. He presented to the neurosurgical office several months ago with an exposed bur hole cover on the right. Risks and benefits of removal of the plate were discussed with him and his family, they eventually decided to have it removed. DESCRIPTION OF PROCEDURE: Patient was brought to the op room general endotracheal esthesia was induced. The right side of his head and previous and bone marked which shaved appropriately he was prepped and draped in the normal sterile fashion. After proper timeout identify the patient, the site of surgery type surgery the incision was fully opened and careful dissection performed to expose the bur hole cover the cranial remover set was used to remove the screws and this allowed the bur hole cover to be removed. We saw several small areas of purulence that were thoroughly irrigated out. A 15 blade was then used to debride the skin edges and then 2-0 Vicryl was used to close the galea followed by oswaldo on the skin. Sterile dressing was placed. He was taken back to recovery room to be discharged home. There is no neurosurgical resident available to assist the case, the nurse practitioner assisted to provide suction retraction assistance with opening and closing allow the case to be performed safely. [facility] 06-13-2023 Note Formatting of this n ote might be different from the original. OPERATIVE NOTE Patient Name: Ada June : 1945 DATE OF PROCEDURE: 06/13/2023 SURGEON: Ada Willams MD ACOUSTICAL LOGGING ENGINEER: Sonia Garces CNP PREOPERATIVE DIAGNOSES: Infected R audie hole incision POSTOPERATIVE DIAGNOSES: Same PROCEDURE: I&D of right posterior bur hole incision, with removal of bur hole cover with primary closure ANESTHESIA: General ESTIMATED BLOOD LOSS: Minimal INDICATION FOR PROCEDURE: Mr. June is a 77-year-old gentleman who underwent a bilateral bur hole procedure for subdural hematomas sometime ago. He presented to the neurosurgical office several months ago with an exposed bur hole cover on the right. Risks and benefits of removal of the plate were discussed with him and his family, they eventually decided to have it removed. DESCRIPTION OF PROCEDURE: Patient was brought to the op room general endotracheal esthesia was induced. The right side of his head and previous and bone marked which shaved appropriately he was prepped and draped in the normal sterile fashion. After proper timeout identify the patient, the site of surgery type surgery the incision was fully opened and careful dissection performed to expose the bur hole cover the cranial remover set was used to remove the screws and this allowed the bur hole cover to be removed. We saw several small areas of purulence that were thoroughly irrigated out. A 15 blade was then used to debride the skin edges and then 2-0 Vicryl was used to close the galea followed by oswaldo on the skin. Sterile dressing was placed. He was taken back to recovery room to be discharged home. There is no neurosurgical resident available to assist the case, the nurse practitioner assisted to provide suction retraction assistance with opening and closing allow the case to be performed safely. [facility] 06-12-2023 Note History Of Present I kary June is a 77 y.o. male presenting with a history of B audie holes for SDH in the past. One of the R sided audie hole plates has eroded through the skin. Past Medical History He has a past medical history of Benign localized prostatic hyperplasia without lower urinary tract symptoms (LUTS), Chronic systolic (congestive) heart failure (HCC), Essential (primary) hypertension, Gastro-esophageal reflux disease without esophagitis, Hyperlipemia, Insomnia, unspecified, Iron deficiency anemia, unspecified, Other malaise, Traumatic subdural hemorrhage with loss of consciousness (HCC), Unspecified atrial fibrillation (HCC), Unspecified fall, initial encounter, and Unspecified fracture of shaft of humerus, left arm, initial encounter for closed fracture. Surgical History He has a past surgical history that includes Aortic valve replacement. Social History He reports that he quit smoking about 15 years ago. His smoking use included cigarettes. He does not have any smokeless tobacco history on file. He reports that he does not currently use alcohol. He reports that he does not currently use drugs. Allergies Patient has no known allergies. Medications No medications prior to admission. Review of Systems Physical Exam Last Recorded Vitals There were no vitals taken for this visit. Relevant Results Assessment/Plan Active Problems: There are no active Hospital Problems. Exposed R audie hole plate Removal of R audie hole plate Risks/Benefits of the surgery have been discussed with the patient including but not limited to stroke, seizures, infection, hemorrhage, speech difficulty, permanent weakness and . Pt and family understand and agree to the procedure [facility] 06-12-2023 History and physical note History Of Present Illness Ada June is a 77 y.o. male presenting with a history of B audie holes for SDH in the past. One of the R sided audie hole plates has eroded through the skin. Past Medical History He has a past medical history of Benign localized prostatic hyperplasia without lower urinary tract symptoms (LUTS), Chronic systolic (congestive) heart failure (HCC), Essential (primary) hypertension, Gastro-esophageal reflux disease without esophagitis, Hyperlipemia, Insomnia, unspecified, Iron deficiency anemia, unspecified, Other malaise, Traumatic subdural hemorrhage with loss of consciousness (HCC), Unspecified atrial fibrillation (HCC), Unspecified fall, initial encounter, and Unspecified fracture of shaft of humerus, left arm, initial encounter for closed fracture. Surgical History He has a past surgical history that includes Aortic valve replacement. Social History He reports that he quit smoking about 15 years ago. His smoking use included cigarettes. He does not have any smokeless tobacco history on file. He reports that he does not currently use alcohol. He reports that he does not currently use drugs. Allergies Patient has no known allergies. Medications No medications prior to admission. Review of Systems Physical Exam Last Recorded Vitals There were no vitals taken for this visit. Relevant Results Assessment/Plan Active Problems: There are no active Hospital Problems. Exposed R audie hole plate Removal of R audie hole plate Risks/Benefits of the surgery have been discussed with the patient including but not limited to stroke, seizures, infection, hemorrhage, speech difficulty, permanent weakness and . Pt and family understand and agree to the procedure [facility] Work Phone: 06-12-2023 History and physical note History Of Present Illness Ada June is a 77 y.o. male presenting with a history of B audie holes for SDH in the past. One of the R sided audie hole plates has eroded through the skin. Past Medical History He has a past medical history of Benign localized prostatic hyperplasia without lower urinary tract symptoms (LUTS), Chronic systolic (congestive) heart failure (HCC), Essential (primary) hypertension, Gastro-esophageal reflux disease without esophagitis, Hyperlipemia, Insomnia, unspecified, Iron deficiency anemia, unspecified, Other malaise, Traumatic subdural hemorrhage with loss of consciousness (HCC), Unspecified atrial fibrillation (HCC), Unspecified fall, initial encounter, and Unspecified fracture of shaft of humerus, left arm, initial encounter for closed fracture. Surgical History He has a past surgical history that includes Aortic valve replacement. Social History He reports that he quit smoking about 15 years ago. His smoking use included cigarettes. He does not have any smokeless tobacco history on file. He reports that he does not currently use alcohol. He reports that he does not currently use drugs. Allergies Patient has no known allergies. Medications No medications prior to admission. Review of Systems Physical Exam Last Recorded Vitals There were no vitals taken for this visit. Relevant Results Assessment/Plan Active Problems: There are no active Hospital Problems. Exposed R audie hole plate Removal of R audie hole plate Risks/Benefits of the surgery have been discussed with the patient including but not limited to stroke, seizures, infection, hemorrhage, speech difficulty, permanent weakness and . Pt and family understand and agree to the procedure documented in this encounter [facility] 06-12-2023 History of Present illness Narrative Chart review completed in order to place pre operative orders for anesthesia. EK01/06/23 ECG 12-LEAD 01/08/2023 12:53 PM (Final) Impression Atrial fibrillation Borderline left axis deviation Anterior infarct, old Nonspecific T abnormalities, lateral leads Electronically Signed On 01-08-2023 12:53:32 EST by Shayla Mari Signed by: Shayla Mari MD on 01/08/2023 12:53 PM ECHO and EF: No results found for this or any previous visit. Labs: Lab Results Component Value Date WBC 8.9 01/09/2023 HGB 10.9 (L) 01/09/2023 HCT 32.1 (L) 01/09/2023 MCV 87.2 01/09/2023 PLT 174 01/09/2023 Lab Results Component Value Date NA 132 (L) 01/09/2023 K 4.0 01/09/2023 CL 100 01/09/2023 CO2 24 01/09/2023 BUN 29 (H) 01/09/2023 CREATININE 0.78 01/09/2023 GLUCOSE 104 (H) 01/09/2023 CALCIUM 8.7 01/09/2023 Past Medical History: Past Medical History: Diagnosis Date Benign localized prostatic hyperplasia without lower urinary tract symptoms (LUTS) Chronic systolic (congestive) heart failure (HCC) Essential (primary) hypertension Gastro-esophageal reflux disease without esophagitis Hyperlipemia Insomnia, unspecified Iron deficiency anemia, unspecified Other malaise Traumatic subdural hemorrhage with loss of consciousness (HCC) Unspecified atrial fibrillation (HCC) Unspecified fall, initial encounter Unspecified fracture of shaft of humerus, left arm, initial encounter for closed fracture Past Surgical History: No past surgical history on file. Medications Prior to Admission: Prior to Admission medications Medication Sig Start Date End Date Taking? Authorizing Provider acetaminophen (Tylenol) 500 MG tablet Take 1,000 mg by mouth every 8 hours as needed. Historical Provider, aluminum & magnesium hydroxide-simethicone (Mylanta) 200-200-20 MG/5ML oral suspension Take 15 mL by mouth every 6 hours as needed. Historical Provider, aluminum-magnesium hydroxide 200-200 MG/5ML suspension Take 30 mL by mouth Daily as needed for heartburn. Historical Provider, amLODIPine (Norvasc) 10 MG tablet Take 1 tablet (10 mg) by mouth daily. Patient taking differently: Take 10 mg by mouth Nightly. 01/15/23 02/14/23 Katya Oliver PA-C apixaban (Eliquis) 5 MG tablet Take 5 mg by mouth 2 times daily. Last dose 06/06/[address] Willams's office Historical Provider, Ascorbic Acid (vitamin C) 250 MG tablet Take 500 mg by mouth Daily with lunch. Historical Provider, atorvastatin (Lipitor) 20 MG tablet Take 20 mg by mouth Nightly. Historical Provider, Cholecalciferol (DIALYVITE VITAMIN D 5000 PO) Take 1 tablet by mouth Daily with lunch. Historical Provider, Ferrex 150 Forte 150-0.025-1 MG capsule Take 1 capsule by mouth Daily with lunch. 05/24/23 Historical Provider, furosemide (Lasix) 40 MG tablet Take 40 mg by mouth in the morning and 40 mg in the evening. 05/21/21 05/17/24 Historical Provider, hydrALAZINE (Apresoline) 50 MG tablet Take 50 mg by mouth in the morning and 50 mg at noon and 50 mg in the evening. Historical Provider, Melatonin 3 MG capsule Take 3 mg by mouth Nightly. Historical Provider, czgpddtd-sqtuadazxu-hgmjxqjgo (Polysporin) ophthalmic ointment Daily as needed. Historical Provider, omeprazole (PriLOSEC) [address] capsule Take 20 mg by mouth Nightly. Do not crush or chew. Historical Provider, senna-docusate (Kristyn-Colace) 8.6-50 MG tablet Take 1 tablet by mouth 2 times daily as needed for constipation. Historical Provider, spironolactone (Aldactone) 25 MG tablet Take 25 mg by mouth Nightly. Historical Provider, amLODIPine (Norvasc) 5 MG tablet Take 5 mg by mouth daily. 06/11/23 Historical Provider, LUTEIN PO Take 25 mg by mouth. 06/11/23 Historical Provider, QUEtiapine (SEROquel) 25 MG tablet Take 0.5 tablets (12.5 mg) by mouth 2 times daily as needed (first line for agitation) for up to 10 days. 01/15/23 06/11/23 Katya Oliver PA-C QUEtiapine (SEROquel) 50 MG tablet Take 1 tablet (50 mg) by mouth Nightly. 01/15/23 06/11/23 Katya Oliver PA-C tamsulosin (Flomax) 0.4 MG 24 hr capsule Take 1 capsule (0.4 mg) by mouth daily. Patient not taking: Reported on 03/31/2023 01/15/23 06/11/23 Katya Oliver PA-C warfarin (Coumadin) 4 MG tablet 5 mg. 08/30/21 06/11/23 Historical Provider, Allergies: Patient has no known allergies. Social History: TOBACCO: reports that he quit smoking about 15 years ago. His smoking use included cigarettes. He does not have any smokeless tobacco history on file. ETOH: reports that he does not currently use alcohol. Social History Substance and Sexual Activity Drug Use Not Currently Family History: No family history on file. documented in this encounter [facility] 06-12-2023 Miscellaneous Notes Per Homer at pre-admission testing, patient has a DNR comfort care. documented in this encounter [facility] 06-12-2023 Telephone encounter Note Per Homer at pre-admission testing, patient has a DNR comfort care. 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 (+) Longstanding persistent atrial fibrillation (HCC) Past Medical History: Past Medical History: No date: Benign localized prostatic hyperplasia without lower urinary tract symptoms (LUTS) No date: Chronic systolic (congestive) heart failure (HCC) No date: Essential (primary) hypertension No date: Gastro-esophageal reflux disease without esophagitis No date: Hyperlipemia No date: Insomnia, unspecified No date: Iron deficiency anemia, unspecified No date: Other malaise No date: Traumatic subdural hemorrhage with loss of consciousness (HCC) No date: Unspecified atrial fibrillation (HCC) No date: Unspecified fall, initial encounter No date: Unspecified fracture of shaft of humerus, left arm, initial encounter for closed fracture Past Surgical History: No past surgical history on file. Social History: TOBACCO: reports that he quit smoking about 15 years ago. His smoking use included cigarettes. He does not have any smokeless tobacco history on file. ETOH: reports that he does not currently use alcohol. Social History Substance and Sexual Activity Drug Use Not Currently Family History: No family history on file. Screening: unknown Clinical information reviewed: Physical Exam Airway Mallampati: II Neck ROM: limited Mouth Open: limitedendotracheal tube not in place Cardiovascular Dental (+) edentulous Pulmonary Abdominal Other findings: Pt forgetful , thinks he is at home, able to identify himself and his birthdate Anesthesia Plan Any family history or previous problems with anesthesia no ASA 3 general Any family history or previous problems with anesthesia no(PAT phone call - chart info previous OR) The patient is not a current smoker. Anesthesia Vazquez Considerations T&S needs ordered dos ERAS Type Short ERAS Per protocol tylenol, pepcid, xanax No gabapentin age greater than 69 [place] Screening Labs: Lab Results Component Value Date WBC 8.9 01/09/2023 HGB 10.9 (L) 01/09/2023 HCT 32.1 (L) 01/09/2023 MCV 87.2 01/09/2023 PLT 174 01/09/2023 Lab Results Component Value Date NA 132 (L) 01/09/2023 K 4.0 01/09/2023 CL 100 01/09/2023 CO2 24 01/09/2023 BUN 29 (H) 01/09/2023 CREATININE 0.78 01/09/2023 GLUCOSE 104 (H) 01/09/2023 CALCIUM 8.7 01/09/2023 EGFR >90.0 01/09/2023 05/16/23 CONCLUSIONS: 1. Left ventricular systolic function is normal with a 55-60% estimated ejection fraction. 2. There is low normal right ventricular systolic function. 3. Sequelae of mitral valve ring repair noted-mean gradient 6 mm at a heart rate of 54 bpm. 4. Moderate biatrial dilatation (visually). 5. Hemodynamics/2D images suggestive of normal functioning of bioprosthetic aortic valve. No prior gradients available for comparison. 6. Poorly visualized anatomical structures due to suboptimal image quality. 01/06/23 05/15/23 Atrial fibrillation with premature ventricular or aberrantly conducted complexes Left axis deviation Inferior infarct (cited on or before 15-MAY-2023) Anteroseptal infarct (cited on or before 15-MAY-2023) Abnormal ECG When compared with ECG of 15-MAY-2023 16:00, (unconfirmed) Anterior leads [facility] 05-18-2023 History of Present illness Narrative Patient is ready for discharge and will return to [facility]. SW did call [facility] and spoke with RN to inform of discharge. Message left for son to return call to see if he will transport patient home. Son did return call and asked if patient will need oxygen,and Sw said that he will. Son did call [facility] and they will provide tank for him to use. 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 SW did let charge nurse know. Patient to return to [facility] Received call from son that his dad is on eloquist and asked about the cost of this. He is aware that there is a coupon for this. This prescription was called into patients pharmacy with [facility]. Explained that we could ask the dr to write a prescription and so could take to pharmacy and son was in agreement with this. SW did call [facility] and left message for RN to see if she can cancel that prescription until son can see if coupon could be used. SAADIA Mcghee Reviewed patient in care rounds this morning and patient could be discharged tomorrow if medically stable. He will return to [facility]. Ct to follow SAADIA Mcghee Ada June is a 77 y.o. male on day 2 of admission presenting with Acute on chronic congestive heart failure, unspecified heart failure type (CMS/HCC). Subjective Patient seen and examined at the bedside this morning He is resting comfortably in bed He currently has no major complaints He is feeling well he states his breathing is much improved Have no major complaints currently Objective Vitals 24HR Heart Rate: [60-79] Temp: [36 C (96.8 F)-37.9 C (100.2 F)] Resp: [18-22] BP: (127-177)/(55-74) Weight: [88.2 kg (194 lb 7.1 oz)] SpO2: [90 %-99 %] Intake/Output last 3 Shifts: Intake/Output Summary (Last 24 hours) at 05/17/2023 0915 Last data filed at 05/17/2023 0850 Gross per 24 hour Intake 1700 ml Output 4925 ml Net -3225 ml Physical Exam Constitutional: Appearance: Normal appearance. HENT: Head: Normocephalic and atraumatic. Right Ear: External ear normal. Left Ear: External ear normal. Nose: Nose normal. Mouth/Throat: Mouth: Mucous membranes are moist. Pharynx: Oropharynx is clear. Eyes: Extraocular Movements: Extraocular movements intact. Conjunctiva/sclera: Conjunctivae normal. Pupils: Pupils are equal, round, and reactive to light. Cardiovascular: Rate and Rhythm: Normal rate. Rhythm irregular. Pulmonary: Effort: Pulmonary effort is normal. Breath sounds: Normal breath sounds. Abdominal: General: Abdomen is flat. Palpations: Abdomen is soft. Musculoskeletal: General: Swelling present. Right lower leg: Edema present. Left lower leg: Edema present. Skin: General: Skin is warm and dry. Comments: He has a sebaceous cyst on his right upper back Neurological: General: No focal deficit present. Mental Status: He is alert and oriented to person, place, and time. Psychiatric: Mood and Affect: Mood normal. Behavior: Behavior normal. Scheduled medications amLODIPine, 10 mg, oral, Daily apixaban, 5 mg, oral, q12h atorvastatin, 20 mg, oral, Daily furosemide, 40 mg, intravenous, q12h hydrALAZINE, 50 mg, oral, TID melatonin, 3 mg, oral, Nightly oxygen, , inhalation, Continuous - Inhalation pantoprazole, 20 mg, oral, Daily before breakfast perflutren protein A microsphere, 0.5 mL, intravenous, Once in imaging sennosides-docusate sodium, 1 tablet, oral, BID spironolactone, 25 mg, oral, Daily sulfur hexafluoride microsphr, 2 mL, intravenous, Once in imaging Continuous medications PRN medications PRN medications: acetaminophen OR acetaminophen OR acetaminophen, magnesium hydroxide, ondansetron ODT OR ondansetron Relevant Results Assessment/Plan Principal Problem: Acute on chronic congestive heart failure, unspecified heart failure type (CMS/HCC) Acute on chronic diastolic congestive heart failure 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 We will continue IV Lasix for another 24 hours I will adjust his spironolactone to twice per day His blood pressure is better at this time His volume status is also much improved EMILY hose to legs bilaterally He is agreeable to Eliquis going forward as long as his insurance will pay and it appears that his co-pay will be quite low Barry Mckay DO 05/16/23 1521 Discharge Planning Living Arrangements Alone ([facility]) Support Systems Children Assistance Needed cane Type of Residence Assisted living Do you have animals or pets at home? No Care Facility Name [facility] Who is requesting discharge planning? Provider Home or Post Acute Services Other (Comment) (Assisted Living) Patient expects to be discharged to: [facility] Does the patient need discharge transport arranged? Yes RoundTrip coordination needed? Yes Has discharge transport been arranged? No Financial Resource Strain How hard is it for you to pay for the very basics like food, housing, medical care, and heating? Pt Unable Patient Choice Provider Choice list and CMS website (https://medicare.gov/care-compar e#search) for post-acute Quality and Resource Measure Data were provided and reviewed with: Patient Patient / Family choosing to utilize agency / facility established prior to hospitalization Yes Care Transitions: Patient reviewed during care round meeting this AM and is not medically ready for discharge. ADOD 24 hours. Met with patient at bedside. Role of TCC explained. Demographics and contacts verified with patient. States he has been residing at the [facility] for approx 1 month. PCP is Donal Hernandez. He uses [facility] pharmacy in [place] for medication needs. His son or daughter cherry picker operator medications and deliver to the [facility] living. He uses a cane with ambulation. He is independent with ADL's but has assistance when needed. He does not drive; son and daughter are his mode of transportation. IMM explained, signed and copy provided. Voiced understanding. Original placed in chart. Discharge plan is to return to [facility] when medically ready. Brittani Rock RN/TCC -[id number] Spoke to nurse at [facility] to update on ADOD and verified patient will be returning there at discharge. Spoke to patient son Guilherme June. He states patient moved into assisted living approx 1 month ago and this will be for the retirement. Care team to follow. Brittani Rock RN/TCC Ada June is a 77 y.o. male on day 1 of admission presenting with Acute on chronic congestive heart failure, unspecified heart failure type (CMS/HCC). Subjective Patient seen and examined at the bedside this morning He is resting fairly comfortably in bed Continues to have shortness of breath Also has swelling of his lower extremities States that this has been going on for a while and he was not getting good answers and continued to have more and more exertional dyspnea Objective Vitals 24HR Heart Rate: [53-79] Temp: [36.2 C (97.1 F)-36.9 C (98.5 F)] Resp: [18-24] BP: (127-209)/(61-82) Height: [180.5 cm (5' 11.06 )-190.5 cm (6' 3 )] Weight: [85.3 kg (188 lb)-92.2 kg (203 lb 4.2 oz)] SpO2: [80 %-97 %] Intake/Output last 3 Shifts: Intake/Output Summary (Last 24 hours) at 05/16/2023 1121 Last data filed at 05/16/2023 1101 Gross per 24 hour Intake 118 ml Output 5155 ml Net -5037 ml Physical Exam Constitutional: Appearance: Normal appearance. HENT: Head: Normocephalic and atraumatic. Right Ear: External ear normal. Left Ear: External ear normal. Nose: Nose normal. Mouth/Throat: Mouth: Mucous membranes are moist. Pharynx: Oropharynx is clear. Eyes: Extraocular Movements: Extraocular movements intact. Conjunctiva/sclera: Conjunctivae normal. Pupils: Pupils are equal, round, and reactive to light. Cardiovascular: Rate and Rhythm: Normal rate and regular rhythm. Pulmonary: Effort: Pulmonary effort is normal. Breath sounds: Normal breath sounds. Comments: Very diminished in the right base Abdominal: General: Abdomen is flat. Palpations: Abdomen is soft. Musculoskeletal: General: Swelling present. Right lower leg: Edema present. Left lower leg: Edema present. Skin: General: Skin is warm and dry. Comments: He has a sebaceous cyst on his right upper back Neurological: General: No focal deficit present. Mental Status: He is alert and oriented to person, place, and time. Psychiatric: Mood and Affect: Mood normal. Behavior: Behavior normal. Scheduled medications amLODIPine, 10 mg, oral, Daily atorvastatin, 20 mg, oral, Daily furosemide, 40 mg, intravenous, q12h hydrALAZINE, 50 mg, oral, TID melatonin, 3 mg, oral, Nightly oxygen, , inhalation, Continuous - Inhalation pantoprazole, 20 mg, oral, Daily before breakfast sennosides-docusate sodium, 1 tablet, oral, BID spironolactone, 25 mg, oral, Daily Continuous medications PRN medications PRN medications: acetaminophen OR acetaminophen OR acetaminophen, magnesium hydroxide, ondansetron ODT OR ondansetron Relevant Results Assessment/Plan Principal Problem: Acute on chronic congestive heart failure, unspecified heart failure type (CMS/HCC) Acute on chronic diastolic congestive heart failure 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 Coronary artery disease with CABG in the past Listed history of atrial fibrillation Hypertension Bilateral pleural effusions right much greater than left Dyspnea with exertion Peripheral edema with volume overload Plan: We will perform a thoracentesis at the bedside and send fluid for analysis It appears clinically that he is in a CHF exacerbation We will continue IV Lasix He is currently on Aldactone amlodipine and hydroxyzine for his blood pressure He states that his anticoagulant was stopped by his access nurse as an outpatient I am going to go ahead and place him back on Eliquis 5 mg twice daily here with his atrial fibrillation We will follow blood pressure closely and adjust medicines as needed Continue diuresis Place EMILY hose to legs bilaterally Barry Mckay DO documented in this encounter [facility] Work Phone: 05-18-2023 Hospital course Narrative Discharge Diagnosis Acute on chronic congestive heart failure, unspecified heart failure type (CMS/HCC) Issues Requiring Follow-Up He needs to follow-up with his primary care physician and with his access nurse. Test Results Pending At Discharge Pending Labs Order Current Status Extra Urine Platt Tube Collected (05/15/23 1855) Cytology (Non-Gynecologic) In process Urinalysis with Reflex Culture and Microscopic In process Blood Culture Preliminary result Blood Culture Preliminary result Hospital Course He presented to the hospital with worsening shortness of breath. He was found to have a large right pleural effusion and underwent a thoracentesis of 2 L. The pleural fluid was transudative in nature He improved dramatically after this was drained for him He also has diuresed well with loop diuretics He was started back on anticoagulation due to his atrial fibrillation with heart disease He currently today is feeling much better his respiratory status is much improved I did explain to him that his pleural effusion may recur We will keep him on loop diuretics going forward but if this recurs and he gets short of breath again he can call at any time for possible need for thoracentesis in the future Pertinent Physical Exam At Time of Discharge Physical Exam Constitutional: Appearance: Normal appearance. HENT: Head: Normocephalic and atraumatic. Right Ear: External ear normal. Left Ear: External ear normal. Nose: Nose normal. Mouth/Throat: Mouth: Mucous membranes are moist. Pharynx: Oropharynx is clear. Eyes: Extraocular Movements: Extraocular movements intact. Conjunctiva/sclera: Conjunctivae normal. Pupils: Pupils are equal, round, and reactive to light. Cardiovascular: Rate and Rhythm: Normal rate. Rhythm irregular. Pulmonary: Effort: Pulmonary effort is normal. Breath sounds: Normal breath sounds. Abdominal: General: Abdomen is flat. Palpations: Abdomen is soft. Musculoskeletal: General: No swelling. Right lower leg: No edema. Left lower leg: No edema. Skin: General: Skin is warm and dry. Comments: He has a sebaceous cyst on his right upper back Neurological: General: No focal deficit present. Mental Status: He is alert and oriented to person, place, and time. Psychiatric: Mood and Affect: Mood normal. Behavior: Behavior normal. Outpatient Follow-Up No future appointments. Barry Mckay DO documented in this encounter [facility] Work Phone: 05-18-2023 Plan of care note Problem: Pain - Adult Goal: Verbalizes/displays adequate comfort level or baseline comfort level 05/18/2023525 by Dawn Lunsford RN Outcome: Progressing 05/18/2023525 by Dawn Lunsford RN Outcome: Progressing Problem: Safety - Adult Goal: Free from fall injury 05/18/2023525 by Dawn Lunsford RN Outcome: Progressing 05/18/2023525 by Dawn Lunsford RN Outcome: Progressing Problem: Discharge Planning Goal: Discharge to home or other facility with appropriate resources 05/18/2023525 by Dawn Lunsford RN Outcome: Progressing 05/18/2023525 by Dawn Lunsford RN Outcome: Progressing Problem: Chronic Conditions and Co-morbidities Goal: Patient's chronic conditions and co-morbidity symptoms are monitored and maintained or improved 05/18/2023525 by Dawn Lunsford RN Outcome: Progressing 05/18/2023525 by Dawn Lunsford RN Outcome: Progressing Problem: Fall/Injury Goal: Not fall by end of shift 05/18/2023525 by Dawn Lunsford RN Outcome: Progressing 05/18/2023525 by Dawn Lunsford RN Outcome: Progressing Goal: Be free from injury by end of the shift 05/18/2023525 by Dawn Lunsford RN Outcome: Progressing 05/18/2023525 by Dawn Lunsford RN Outcome: Progressing Goal: Verbalize understanding of personal risk factors for fall in the hospital 05/18/2023525 by Dawn Lunsford RN Outcome: Progressing 05/18/2023525 by Dawn Lunsford RN Outcome: Progressing Goal: Verbalize understanding of risk factor reduction measures to prevent injury from fall in the home 05/18/2023525 by Dawn Lunsford RN Outcome: Progressing 05/18/2023525 by Dawn Lunsford RN Outcome: Progressing Goal: Use assistive devices by end of the shift 05/18/2023525 by Dawn Lunsford RN Outcome: Progressing 05/18/2023525 by Dawn Lunsford RN Outcome: Progressing Goal: Pace activities to prevent fatigue by end of the shift 05/18/2023525 by Dawn Lunsford RN Outcome: Progressing 05/18/2023525 by Dawn Lunsford RN Outcome: Progressing Problem: Heart Failure Goal: Improved gas exchange this shift 05/18/2023525 by Dawn Lunsford RN Outcome: Progressing 05/18/2023525 by Dawn Lunsford RN Outcome: Progressing Goal: Improved urinary output this shift 05/18/2023525 by Dawn Lunsford RN Outcome: Progressing 05/18/2023525 by Dawn Lunsford RN Outcome: Progressing Goal: Reduction in peripheral edema within 24 hours 05/18/2023525 by Dawn Lunsford RN Outcome: Progressing 05/18/2023525 by Dawn Lunsford RN Outcome: Progressing Goal: Report improvement of dyspnea/breathlessness this shift 05/18/2023525 by Dawn Lunsford RN Outcome: Progressing 05/18/2023525 by Dawn Lunsford RN Outcome: Progressing Goal: Weight from fluid excess reduced over 2-3 days, then stabilize 05/18/2023525 by Dawn Lunsford RN Outcome: Progressing 05/18/2023525 by Dawn Lunsford RN Outcome: Progressing Goal: Increase self care and/or family involvement in 24 hours 05/18/2023525 by Dawn Lunsford RN Outcome: Progressing 05/18/2023525 by Dawn Lunsford RN Outcome: Progressing Problem: Respiratory Goal: Clear secretions with interventions this shift Outcome: Progressing Goal: Minimize anxiety/maximize coping throughout shift Outcome: Progressing Goal: Minimal/no exertional discomfort or dyspnea this shift Outcome: Progressing Goal: No signs of respiratory distress (eg. Use of accessory muscles. Peds grunting) Outcome: Progressing Goal: Patent airway maintained this shift Outcome: Progressing Goal: Tolerate mechanical ventilation evidenced by VS/agitation level this shift Outcome: Progressing Goal: Tolerate pulmonary toileting this shift Outcome: Progressing Goal: Verbalize decreased shortness of breath this shift Outcome: Progressing Goal: Wean oxygen to maintain O2 saturation per order/standard this shift Outcome: Progressing Goal: Increase self care and/or family involvement in next 24 hours Outcome: Progressing The patient's goals for the shift include no shortness of breath The clinical goals for the shift include decrease swelling Pt remains on 4LNC this shift. Nonpitting edema noted in lower extremities. [facility] 05-18-2023 Miscellaneous Notes Problem: Pain - Adult Goal: Verbalizes/displays adequate comfort level or baseline comfort level 05/18/2023525 by Dawn Lunsford RN Outcome: Progressing 05/18/2023525 by Dawn Lunsford RN Outcome: Progressing Problem: Safety - Adult Goal: Free from fall injury 05/18/2023525 by Dawn Lunsford RN Outcome: Progressing 05/18/2023525 by Dawn Lunsford RN Outcome: Progressing Problem: Discharge Planning Goal: Discharge to home or other facility with appropriate resources 05/18/2023525 by Dawn Lunsford RN Outcome: Progressing 05/18/2023525 by Dawn Lunsford RN Outcome: Progressing Problem: Chronic Conditions and Co-morbidities Goal: Patient's chronic conditions and co-morbidity symptoms are monitored and maintained or improved 05/18/2023525 by Dawn Lunsford RN Outcome: Progressing 05/18/2023525 by Dawn Lunsford RN Outcome: Progressing Problem: Fall/Injury Goal: Not fall by end of shift 05/18/2023525 by Dawn Lunsford RN Outcome: Progressing 05/18/2023525 by Dawn Lunsford RN Outcome: Progressing Goal: Be free from injury by end of the shift 05/18/2023525 by Dawn Lunsford RN Outcome: Progressing 05/18/2023525 by Dawn Lunsford RN Outcome: Progressing Goal: Verbalize understanding of personal risk factors for fall in the hospital 05/18/2023525 by Dawn Lunsford RN Outcome: Progressing 05/18/2023525 by Dawn Lunsford RN Outcome: Progressing Goal: Verbalize understanding of risk factor reduction measures to prevent injury from fall in the home 05/18/2023525 by Dawn Lunsford RN Outcome: Progressing 05/18/2023525 by Dawn Lunsford RN Outcome: Progressing Goal: Use assistive devices by end of the shift 05/18/2023525 by Dawn Lunsford RN Outcome: Progressing 05/18/2023525 by Dawn Lunsford RN Outcome: Progressing Goal: Pace activities to prevent fatigue by end of the shift 05/18/2023525 by Dawn Lunsford RN Outcome: Progressing 05/18/2023525 by Dawn Lunsford RN Outcome: Progressing Problem: Heart Failure Goal: Improved gas exchange this shift 05/18/2023525 by Dawn Lunsford RN Outcome: Progressing 05/18/2023525 by Dawn Lunsford RN Outcome: Progressing Goal: Improved urinary output this shift 05/18/2023525 by Dawn Lunsford RN Outcome: Progressing 05/18/2023525 by Dawn Lunsford RN Outcome: Progressing Goal: Reduction in peripheral edema within 24 hours 05/18/2023525 by Dawn Lunsford RN Outcome: Progressing 05/18/2023525 by Dawn Lunsford RN Outcome: Progressing Goal: Report improvement of dyspnea/breathlessness this shift 05/18/2023525 by Dawn Lunsford RN Outcome: Progressing 05/18/2023525 by Dawn Lunsford RN Outcome: Progressing Goal: Weight from fluid excess reduced over 2-3 days, then stabilize 05/18/2023525 by Dawn Lunsford RN Outcome: Progressing 05/18/2023525 by Dawn Lunsford RN Outcome: Progressing Goal: Increase self care and/or family involvement in 24 hours 05/18/2023525 by Dawn Lunsford RN Outcome: Progressing 05/18/2023525 by Dawn Lunsford RN Outcome: Progressing Problem: Respiratory Goal: Clear secretions with interventions this shift Outcome: Progressing Goal: Minimize anxiety/maximize coping throughout shift Outcome: Progressing Goal: Minimal/no exertional discomfort or dyspnea this shift Outcome: Progressing Goal: No signs of respiratory distress (eg. Use of accessory muscles. Peds grunting) Outcome: Progressing Goal: Patent airway maintained this shift Outcome: Progressing Goal: Tolerate mechanical ventilation evidenced by VS/agitation level this shift Outcome: Progressing Goal: Tolerate pulmonary toileting this shift Outcome: Progressing Goal: Verbalize decreased shortness of breath this shift Outcome: Progressing Goal: Wean oxygen to maintain O2 saturation per order/standard this shift Outcome: Progressing Goal: Increase self care and/or family involvement in next 24 hours Outcome: Progressing The patient's goals for the shift include no shortness of breath The clinical goals for the shift include decrease swelling Pt remains on 4LNC this shift. Nonpitting edema noted in lower extremities. Despite taking home dose of oral hydralazine 50 mg, blood pressure still elevated 183/74. I will go ahead and give 10 mg IV hydralazine one-time stat. documented in this encounter [facility] Work Phone: 05-17-2023 Nurse Note Attempted to place EMILY hose per the order, unable to place as we do not have a big enough size for the patient. [facility] 05-17-2023 Nurse Note Attempted to place EMILY hose per the order, unable to place as we do not have a big enough size for the patient. Patient bp 161/59 and heartrate 61 at present . Message left with dr. Mckay. Dr. Mckay notified of 10 beat vtach documented in this encounter [facility] Work Phone: 05-16-2023 Nurse Note Patient bp 161/59 and heartrate 61 at present . Message left with dr. Mckay. [facility] 05-16-[address] Mckay notified of 10 beat vtach [facility] 05-16-2023 Procedure note Right thoracentesis Reason: Right pleural effusion Consent: Obtained from patient at bedside Timeout: Performed at bedside with Tracie Procedure: Using direct ultrasound visualization the right chest was visualized Is a good target A spot was made on the skin The site was then cleaned thoroughly with chlorhexidine and draped in sterile fashion Lidocaine was used to anesthetize the area and with the 22-gauge needle fluid was easily aspirated A small nafisa was made in the skin The 6 Ivorian catheter was then placed over the needle into the thoracic cavity and yellow fluid was was against easily aspirated The fluid was aspirated up to 2 L He did have some coughing and chest pain with the aspiration when he was coughing Fluid appeared clear yellow There was no air aspirated We stopped at 2 L We will send fluid for analysis Immediately after the procedure he started to feel better No chest x-ray needed as no air aspirated and was uncomplicated although a large amount was aspirated at 2 L [facility] Work Phone: 05-16-2023 Procedure note Right thoracentesis Reason: Right pleural effusion Consent: Obtained from patient at bedside Timeout: Performed at bedside with Tracie Procedure: Using direct ultrasound visualization the right chest was visualized Is a good target A spot was made on the skin The site was then cleaned thoroughly with chlorhexidine and draped in sterile fashion Lidocaine was used to anesthetize the area and with the 22-gauge needle fluid was easily aspirated A small nafisa was made in the skin The 6 Ivorian catheter was then placed over the needle into the thoracic cavity and yellow fluid was was against easily aspirated The fluid was aspirated up to 2 L He did have some coughing and chest pain with the aspiration when he was coughing Fluid appeared clear yellow There was no air aspirated We stopped at 2 L We will send fluid for analysis Immediately after the procedure he started to feel better No chest x-ray needed as no air aspirated and was uncomplicated although a large amount was aspirated at 2 L documented in this encounter [facility] Work Phone: 05-16-2023 Consult note Associated Order (s): IP CONSULT TO HEART FAILURE NAVIGATOR [facility] Failure [facility] was consulted for a Heart Failure Clinic screening. Notes, labs, flowsheets and medications reviewed in EMR. 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 Patient was instructed to follow up with Automotive Paint Technician to reevaluate restarting anticoagulation. Automotive Paint Technician/PCP: Dr. Carin Pulido Last Echo: 05/16/23 EF: 55-60% BNP: 618 on 05/15/23 Met with Ada at bedside to discuss the Heart Failure Clinic and provide education about managing CHF. Ada stated that he currently is seeing Dr. Del Rosario in [place] as his Automotive Paint Technician and has an appointment scheduled in June and he would like to continue his cardiac care with. Dr. Del Rosario. Discussed daily weights while at home and limiting salt intake. Ada stated he has tried Mrs. Dash, but is not a fan, so he does still add a little bit of salt to his food. Ada denied any further questions regarding heart failure management. [facility] 05-16-2023 Consult note Associated Order (s): IP CONSULT TO HEART FAILURE NAVIGATOR Heart Failure Clinic was consulted for a Heart Failure Clinic screening. Notes, labs, flowsheets and medications reviewed in EMR. 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 Patient was instructed to follow up with Automotive Paint Technician to reevaluate restarting anticoagulation. Automotive Paint Technician/PCP: Dr. Carin Pulido Last Echo: 05/16/23 EF: 55-60% BNP: 618 on 05/15/23 Met with Ada at bedside to discuss the Heart Failure Clinic and provide education about managing CHF. Ada stated that he currently is seeing Dr. 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 Dr. Del Rosario. Discussed daily weights while at home and limiting salt intake. Ada stated he has tried Mrs. Clemens, but is not a fan, so he does still add a little bit of salt to his food. Ada denied any further questions regarding heart failure management. documented in this encounter [facility] Work Phone: 05-16-2023 Note Formatting of this n ote might be different from the original. Despite taking home dose of oral hydralazine 50 mg, blood pressure still elevated 183/74. I will go ahead and give 10 mg IV hydralazine one-time stat. [facility] Work Phone: 05-15-2023 History and physical note History Of Present Illness Ada June is a 77 y.o. male Who presented to the emergency room from [facility] for shortness of breath and hypoxia and a productive cough. On presentation; blood pressure 209/64, heart rate 65, respiratory rate 20, afebrile, saturation oxygen 80% on room air. Patient was placed on 4 L nasal cannula oxygen. Pertinent findings on blood workup; hemoglobin 10.7, [id number], and BNP 618. CT angio of the chest showed pulmonary edema with large right-sided pleural effusion. There is also mediastinal lymphadenopathy. Patient was given in the emergency room 40 mg IV Lasix and then admitted to the medical service for further investigation and management. Upon encounter now, patient resting in his bed. Still reports shortness of breath. He said that this happened the past week. That has been progressively worsening. Initially on exertion and eventually became at rest. And he has been having this productive cough. Yellowish/clear phlegm. No fever or chills. No chest pain. No palpitations. He did notice swelling in his bilateral ankles. ROS 10 systems were reviewed and were negative except for those noted in the history of present illness. Past Medical History Past Medical History: Diagnosis Date CHF (congestive heart failure) (CMS/HCC) Hypertension Pertinent medical history also documented in my below narrative Surgical History History reviewed. No pertinent surgical history. Pertinent surgical history also documented in my below narrative Social History He reports that he quit smoking about 15 years ago. His smoking use included cigarettes. He has never used smokeless tobacco. He reports that he does not drink alcohol and does not use drugs. Family History No family history on file. Allergies Patient has no known allergies. Medications Prior to Admission Medication Sig Dispense Refill Last Dose acetaminophen (Tylenol) 500 mg tablet Take 2 tablets (1,000 mg) by mouth 2 times a day. 05/15/2023 alum-mag hydroxide-simeth (Mylanta) 200-200-20 mg/5 mL oral suspension Take 15 mL by mouth every 6 hours if needed for indigestion or heartburn. Unknown amLODIPine (Norvasc) 10 mg tablet Take 1 tablet (10 mg) by mouth once daily. Unknown ascorbic acid (Vitamin C) 500 mg tablet Take 1 tablet (500 mg) by mouth once daily. Unknown atorvastatin (Lipitor) 20 mg tablet Take 1 tablet (20 mg) by mouth once daily. Unknown benzonatate (Tessalon) 100 mg capsule Take 1 capsule (100 mg) by mouth 3 times a day as needed for cough. Do not crush or chew. Unknown cholecalciferol (Vitamin D3) 5,000 Units tablet Take 1 tablet (5,000 Units) by mouth once daily. Unknown hydrALAZINE (Apresoline) 50 mg tablet Take 1 tablet (50 mg) by mouth 3 times a day. Unknown iron polysaccharides (Nu-Iron,Niferex) 150 mg iron capsule Take 1 capsule (150 mg) by mouth once daily. Unknown loperamide (Imodium A-D) 2 mg tablet Take 2 tablets (4 mg) by mouth 4 times a day as needed for diarrhea. Unknown magnesium hydroxide (Milk of Magnesia) 400 mg/5 mL suspension Take 30 mL by mouth once daily as needed for constipation. Unknown melatonin 3 mg capsule Take 1 capsule by mouth once daily at bedtime. Unknown fhhzdhin-kejvqczhxIg-viuhqzstG (Neosporin Original) ointment Apply 1 Application topically 2 times a day. Unknown omeprazole (PriLOSEC) [address] capsule Take 1 capsule (20 mg) by mouth once daily in the morning. Take before meals. Do not crush or chew. Unknown sennosides-docusate sodium (Kristyn-Colace) 8.6-50 mg tablet Take 1 tablet by mouth 2 times a day. Unknown spironolactone (Aldactone) 25 mg tablet Take 1 tablet (25 mg) by mouth once daily. Unknown traMADol (Ultram) 50 mg tablet Take 1 tablet (50 mg) by mouth. Unknown Last Recorded Vitals Blood pressure (!) 182/70, pulse 53, temperature 36.2 C (97.2 F), resp. rate 20, height 1.805 m (5' 11.06 ), weight 92.2 kg (203 lb 4.2 oz), SpO2 91 %. Physical Exam Constitutional: General: He is not in acute distress. Appearance: He is not ill-appearing. Comments: Awake alert and oriented x3 HENT: Mouth/Throat: Pharynx: Oropharynx is clear. Eyes: Pupils: Pupils are equal, round, and reactive to light. Cardiovascular: Rate and Rhythm: Normal rate. Rhythm irregular. Heart sounds: Normal heart sounds. Pulmonary: Comments: Distant breath sounds with diminished air entry at the lower lobes. Abdominal: General: Abdomen is flat. Bowel sounds are normal. There is no distension. Palpations: Abdomen is soft. Tenderness: There is no abdominal tenderness. Musculoskeletal: Comments: There is a moderate pitting edema around both ankles. No edema noted in the legs or in the feet Skin: General: Skin is warm. Neurological: General: No focal deficit present. Psychiatric: Mood and Affect: Mood normal. Behavior: Behavior normal. Thought Content: Thought content normal. Judgment: Judgment normal. Relevant Results Results for orders placed or performed during the hospital encounter of 05/15/23 (from the past 24 hour(s)) CBC and Auto Differential Result Value Ref Range WBC 9.0 4.4 - 11.3 x10*3/uL nRBC 0.0 0.0 - 0.0 /100 WBCs RBC 3.70 (L) 4.50 - 5.90 x10*6/uL Hemoglobin 10.4 (L) 13.5 - 17.5 g/dL Hematocrit 33.6 (L) 41.0 - 52.0 % MCV 91 80 - 100 fL MCH 28.1 26.0 - 34.0 pg MCHC 31.0 (L) 32.0 - 36.0 g/dL RDW 15.8 (H) 11.5 - 14.5 % Platelets 295 150 - 450 x10*3/uL Neutrophils % 79.6 40.0 - 80.0 % Immature Granulocytes %, Automated 0.3 0.0 - 0.9 % Lymphocytes % 10.7 13.0 - 44.0 % Monocytes % 8.2 2.0 - 10.0 % Eosinophils % 0.6 0.0 - 6.0 % Basophils % 0.6 0.0 - 2.0 % Neutrophils Absolute 7.13 (H) 1.60 - 5.50 x10*3/uL Immature Granulocytes Absolute, Automated 0.03 0.00 - 0.50 x10*3/uL Lymphocytes Absolute 0.96 0.80 - 3.00 x10*3/uL Monocytes Absolute 0.73 0.05 - 0.80 x10*3/uL Eosinophils Absolute 0.05 0.00 - 0.40 x10*3/uL Basophils Absolute 0.05 0.00 - 0.10 x10*3/uL Comprehensive metabolic panel Result Value Ref Range Glucose 147 (H) 74 - 99 mg/dL Sodium 141 136 - 145 mmol/L Potassium 3.8 3.5 - 5.3 mmol/L Chloride 109 (H) 98 - 107 mmol/L Bicarbonate 23 21 - 32 mmol/L Anion Gap 13 10 - 20 mmol/L Urea Nitrogen 21 6 - 23 mg/dL Creatinine 0.81 0.50 - 1.30 mg/dL eGFR 90 >60 mL/min/1.73m*2 Calcium 8.8 8.6 - 10.3 mg/dL Albumin 3.6 3.4 - 5.0 g/dL Alkaline Phosphatase 117 33 - 136 U/L Total Protein 7.1 6.4 - 8.2 g/dL AST 11 9 - 39 U/L Bilirubin, Total 0.8 0.0 - 1.2 mg/dL ALT 11 10 - 52 U/L Troponin I, High Sensitivity Result Value Ref Range Troponin I, High Sensitivity 24 (H) 0 - 20 ng/L B-Type Natriuretic Peptide Result Value Ref Range BNP 618 (H) 0 - 99 pg/mL D-Dimer, Quantitative Non VTE Result Value Ref Range D-Dimer Non VTE, Quant (ng/mL FEU) 1,709 (H) <=500 ng/mL FEU Lactate Result Value Ref Range Lactate 1.1 0.4 - 2.0 mmol/L aPTT Result Value Ref Range aPTT 36 27 - 38 seconds Protime-INR Result Value Ref Range Protime 15.7 (H) 9.8 - 12.8 seconds INR 1.4 (H) 0.9 - 1.1 Sars-CoV-2 PCR Result Value Ref Range Coronavirus 2019, PCR Not Detected Not Detected Influenza A, and B PCR Result Value Ref Range Flu A Result Not Detected Not Detected Flu B Result Not Detected Not Detected Urinalysis with Reflex Culture and Microscopic Result Value Ref Range Color, Urine Colorless (N) Straw, Yellow Appearance, Urine Clear Clear Specific [place], Urine 1.011 1.005 - 1.035 pH, Urine 6.0 5.0, 5.5, 6.0, 6.5, 7.0, 7.5, 8.0 Protein, Urine 30 (1+) (N) NEGATIVE mg/dL Glucose, Urine NEGATIVE NEGATIVE mg/dL Blood, Urine NEGATIVE NEGATIVE Ketones, Urine NEGATIVE NEGATIVE mg/dL Bilirubin, Urine NEGATIVE NEGATIVE Urobilinogen, Urine <2.0 <2.0 mg/dL Nitrite, Urine NEGATIVE NEGATIVE Leukocyte Esterase, Urine NEGATIVE NEGATIVE Urinalysis Microscopic Result Value Ref Range WBC, Urine NONE 1-5, NONE /HPF RBC, Urine 1-2 NONE, 1-2, 3-5 /HPF CT angio chest for pulmonary embolism Result Date: 05/15/2023 Interpreted By: Orly Ibarra, STUDY: CT ANGIO CHEST FOR PULMONARY EMBOLISM; 05/15/2023 5:34 pm INDICATION: Signs/Symptoms:dyspnea. elevated d dimer. COMPARISON: None. ACCESSION NUMBER(S): [id number] ORDERING CLINICIAN: [place] LIU TECHNIQUE: Helical data acquisition of the chest was obtained with IV contrast material. MIP reconstructions. 68 mL of Omnipaque 350. Images were reformatted in axial, coronal, and sagittal planes. FINDINGS: Lungs and Pleura: Large right and small left pleural effusion with loculations. Interlobular septal thickening and ground-glass opacities suggestive of pulmonary edema. Mild paraseptal pulmonary emphysematous changes. No pneumothorax. Mediastinum and axilla: No evidence of pulmonary embolism. Subcarinal lymphadenopathy measuring 18 mm. Lymphadenopathy in the pretracheal and paratracheal stations also noted, as well as aortopulmonary window, measuring up to 17 mm. Cardiomegaly. No pericardial effusion. Reflux of contrast into the hepatic veins suggesting increased right heart pressure. No thoracic aortic aneurysm. Atherosclerosis. Atrial clip. Advanced coronary artery calcifications. Sternotomy wires status post CABG. Visualized Upper Abdomen: No worrisome findings in the visualized upper abdomen. MSK/Chest Wall: Left humeral neck fracture. No pulmonary embolism. Pulmonary edema with large right and small left pleural effusion. Mild pulmonary emphysematous changes. Mediastinal lymphadenopathy, reactive or neoplastic. Consider 3-6 month follow-up to ensure resolution. Signed by: Orly Ibarra 05/15/2023 6:30 PM Dictation workstation: [id number] XR chest 1 view Result Date: 05/15/2023 Interpreted By: Kamini Crawford, STUDY: XR CHEST 1 VIEW; 05/15/2023 4:19 pm INDICATION: CLINICAL INFORMATION: Signs/Symptoms:dyspnea. COMPARISON: None ACCESSION NUMBER(S): [id number] ORDERING CLINICIAN: [place] LIU TECHNIQUE: Portable chest one view. FINDINGS: The cardiac size is indeterminate in view of the AP projection. 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 A device overlying the left side of the mediastinum is thought to represent a left atrial appendage clip. There are diffuse hazy alveolar infiltrates present bilaterally along with moderate-sized bilateral effusions, more marked on the right. Postsurgical appearance of the chest. Bilateral infiltrates and effusions. Infiltrates and effusions raises the possibility of pulmonary edema and CHF. Follow-up to assure complete clearing is suggested. MACRO: none Signed by: Kamini Crawford 05/15/2023 4:47 PM Dictation workstation: [id number] Assessment/Plan 77-year-old male with a past medical history of coronary artery disease status post CABG, systolic CHF, atrial fibrillation, reported status post aortic valve replacement, s/p mitral valve repair, orthostatic hypotension, iron deficiency anemia, hypertension, hyperlipidemia, insomnia, GERD, BPH, subdural hematoma secondary to a fall and s/p bilateral bur hole evacuation 01/07/2023 who presented to the emergency room from assisted living facility for shortness of breath and a productive cough. On presentation, patient was found to have a hypertensive urgency along with an acute hypoxemic respiratory failure in the setting of pulmonary edema and a large right-sided pleural effusion. Admit patient to the inpatient medical service with telemetry and vital signs monitoring. Order echocardiogram Consult critical care given the right-sided pleural effusion and for consideration of thoracentesis Give Lasix 40 mg IV twice a day. Monitor ins and outs closely. Repeat BMP tomorrow. Given the productive cough, and given the right-sided pleural effusion, I will order procalcitonin level as well as sputum culture. But still, no clinical indications for antibiotic coverage. Continue home medications including the spironolactone 25 mg daily I am not sure why patient is not on any beta-blockers despite the reported history of coronary artery disease, atrial fibrillation, and congestive heart failure. I will wait for the echocardiogram report to come back and then decide on the next step. Also not sure why patient is not on any Eliquis. In the morning, we will try to reach out to his access nurse office to have a better understanding. SCDs for DVT prophylaxis Full code (This note was generated with voice recognition software and may contain errors including spelling, grammar, syntax and misrecognition of what was dictated, that are not fully corrected) Tara Blanco MD [facility] Work Phone: 05-15-2023 History and physical note History Of Present Illness Ada June is a 77 y.o. male Who presented to the emergency room from [facility] for shortness of breath and hypoxia and a productive cough. On presentation; blood pressure 209/64, heart rate 65, respiratory rate 20, afebrile, saturation oxygen 80% on room air. Patient was placed on 4 L nasal cannula oxygen. Pertinent findings on blood workup; hemoglobin 10.7, [id number], and BNP 618. CT angio of the chest showed pulmonary edema with large right-sided pleural effusion. There is also mediastinal lymphadenopathy. Patient was given in the emergency room 40 mg IV Lasix and then admitted to the medical service for further investigation and management. Upon encounter now, patient resting in his bed. Still reports shortness of breath. He said that this happened the past week. That has been progressively worsening. Initially on exertion and eventually became at rest. And he has been having this productive cough. Yellowish/clear phlegm. No fever or chills. No chest pain. No palpitations. He did notice swelling in his bilateral ankles. ROS 10 systems were reviewed and were negative except for those noted in the history of present illness. Past Medical History Past Medical History: Diagnosis Date CHF (congestive heart failure) (CMS/[facility], [facility]) Hypertension Pertinent medical history also documented in my below narrative Surgical History History reviewed. No pertinent surgical history. Pertinent surgical history also documented in my below narrative Social History He reports that he quit smoking about 15 years ago. His smoking use included cigarettes. He has never used smokeless tobacco. He reports that he does not drink alcohol and does not use drugs. Family History No family history on file. Allergies Patient has no known allergies. Medications Prior to Admission Medication Sig Dispense Refill Last Dose acetaminophen (Tylenol) 500 mg tablet Take 2 tablets (1,000 mg) by mouth 2 times a day. 05/15/2023 alum-mag hydroxide-simeth (Mylanta) 200-200-20 mg/5 mL oral suspension Take 15 mL by mouth every 6 hours if needed for indigestion or heartburn. Unknown amLODIPine (Norvasc) 10 mg tablet Take 1 tablet (10 mg) by mouth once daily. Unknown ascorbic acid (Vitamin C) 500 mg tablet Take 1 tablet (500 mg) by mouth once daily. Unknown atorvastatin (Lipitor) 20 mg tablet Take 1 tablet (20 mg) by mouth once daily. Unknown benzonatate (Tessalon) 100 mg capsule Take 1 capsule (100 mg) by mouth 3 times a day as needed for cough. Do not crush or chew. Unknown cholecalciferol (Vitamin D3) 5,000 Units tablet Take 1 tablet (5,000 Units) by mouth once daily. Unknown hydrALAZINE (Apresoline) 50 mg tablet Take 1 tablet (50 mg) by mouth 3 times a day. Unknown iron polysaccharides (Nu-Iron,Niferex) 150 mg iron capsule Take 1 capsule (150 mg) by mouth once daily. Unknown loperamide (Imodium A-D) 2 mg tablet Take 2 tablets (4 mg) by mouth 4 times a day as needed for diarrhea. Unknown magnesium hydroxide (Milk of Magnesia) 400 mg/5 mL suspension Take 30 mL by mouth once daily as needed for constipation. Unknown melatonin 3 mg capsule Take 1 capsule by mouth once daily at bedtime. Unknown jlgoxcwy-jhlfbevknWi-fkhauekiX (Neosporin Original) ointment Apply 1 Application topically 2 times a day. Unknown omeprazole (PriLOSEC) [address] capsule Take 1 capsule (20 mg) by mouth once daily in the morning. Take before meals. Do not crush or chew. Unknown sennosides-docusate sodium (Kristyn-Colace) 8.6-50 mg tablet Take 1 tablet by mouth 2 times a day. Unknown spironolactone (Aldactone) 25 mg tablet Take 1 tablet (25 mg) by mouth once daily. Unknown traMADol (Ultram) 50 mg tablet Take 1 tablet (50 mg) by mouth. Unknown Last Recorded Vitals Blood pressure (!) 182/70, pulse 53, temperature 36.2 C (97.2 F), resp. rate 20, height 1.805 m (5' 11.06 ), weight 92.2 kg (203 lb 4.2 oz), SpO2 91 %. Physical Exam Constitutional: General: He is not in acute distress. Appearance: He is not ill-appearing. Comments: Awake alert and oriented x3 HENT: Mouth/Throat: Pharynx: Oropharynx is clear. Eyes: Pupils: Pupils are equal, round, and reactive to light. Cardiovascular: Rate and Rhythm: Normal rate. Rhythm irregular. Heart sounds: Normal heart sounds. Pulmonary: Comments: Distant breath sounds with diminished air entry at the lower lobes. Abdominal: General: Abdomen is flat. Bowel sounds are normal. There is no distension. Palpations: Abdomen is soft. Tenderness: There is no abdominal tenderness. Musculoskeletal: Comments: There is a moderate pitting edema around both ankles. No edema noted in the legs or in the feet Skin: General: Skin is warm. Neurological: General: No focal deficit present. Psychiatric: Mood and Affect: Mood normal. Behavior: Behavior normal. Thought Content: Thought content normal. Judgment: Judgment normal. Relevant Results Results for orders placed or performed during the hospital encounter of 05/15/23 (from the past 24 hour(s)) CBC and Auto Differential Result Value Ref Range WBC 9.0 4.4 - 11.3 x10*3/uL nRBC 0.0 0.0 - 0.0 /100 WBCs RBC 3.70 (L) 4.50 - 5.90 x10*6/uL Hemoglobin 10.4 (L) 13.5 - 17.5 g/dL Hematocrit 33.6 (L) 41.0 - 52.0 % MCV 91 80 - 100 fL MCH 28.1 26.0 - 34.0 pg MCHC 31.0 (L) 32.0 - 36.0 g/dL RDW 15.8 (H) 11.5 - 14.5 % Platelets 295 150 - 450 x10*3/uL Neutrophils % 79.6 40.0 - 80.0 % Immature Granulocytes %, Automated 0.3 0.0 - 0.9 % Lymphocytes % 10.7 13.0 - 44.0 % Monocytes % 8.2 2.0 - 10.0 % Eosinophils % 0.6 0.0 - 6.0 % Basophils % 0.6 0.0 - 2.0 % Neutrophils Absolute 7.13 (H) 1.60 - 5.50 x10*3/uL Immature Granulocytes Absolute, Automated 0.03 0.00 - 0.50 x10*3/uL Lymphocytes Absolute 0.96 0.80 - 3.00 x10*3/uL Monocytes Absolute 0.73 0.05 - 0.80 x10*3/uL Eosinophils Absolute 0.05 0.00 - 0.40 x10*3/uL Basophils Absolute 0.05 0.00 - 0.10 x10*3/uL Comprehensive metabolic panel Result Value Ref Range Glucose 147 (H) 74 - 99 mg/dL Sodium 141 136 - 145 mmol/L Potassium 3.8 3.5 - 5.3 mmol/L Chloride 109 (H) 98 - 107 mmol/L Bicarbonate 23 21 - 32 mmol/L Anion Gap 13 10 - 20 mmol/L Urea Nitrogen 21 6 - 23 mg/dL Creatinine 0.81 0.50 - 1.30 mg/dL eGFR 90 >60 mL/min/1.73m*2 Calcium 8.8 8.6 - 10.3 mg/dL Albumin 3.6 3.4 - 5.0 g/dL Alkaline Phosphatase 117 33 - 136 U/L Total Protein 7.1 6.4 - 8.2 g/dL AST 11 9 - 39 U/L Bilirubin, Total 0.8 0.0 - 1.2 mg/dL ALT 11 10 - 52 U/L Troponin I, High Sensitivity Result Value Ref Range Troponin I, High Sensitivity 24 (H) 0 - 20 ng/L B-Type Natriuretic Peptide Result Value Ref Range BNP 618 (H) 0 - 99 pg/mL D-Dimer, Quantitative Non VTE Result Value Ref Range D-Dimer Non VTE, Quant (ng/mL FEU) 1,709 (H) <=500 ng/mL FEU Lactate Result Value Ref Range Lactate 1.1 0.4 - 2.0 mmol/L aPTT Result Value Ref Range aPTT 36 27 - 38 seconds Protime-INR Result Value Ref Range Protime 15.7 (H) 9.8 - 12.8 seconds INR 1.4 (H) 0.9 - 1.1 Sars-CoV-2 PCR Result Value Ref Range Coronavirus 2019, PCR Not Detected Not Detected Influenza A, and B PCR Result Value Ref Range Flu A Result Not Detected Not Detected Flu B Result Not Detected Not Detected Urinalysis with Reflex Culture and Microscopic Result Value Ref Range Color, Urine Colorless (N) Straw, Yellow Appearance, Urine Clear Clear Specific [place], Urine 1.011 1.005 - 1.035 pH, Urine 6.0 5.0, 5.5, 6.0, 6.5, 7.0, 7.5, 8.0 Protein, Urine 30 (1+) (N) NEGATIVE mg/dL Glucose, Urine NEGATIVE NEGATIVE mg/dL Blood, Urine NEGATIVE NEGATIVE Ketones, Urine NEGATIVE NEGATIVE mg/dL Bilirubin, Urine NEGATIVE NEGATIVE Urobilinogen, Urine <2.0 <2.0 mg/dL Nitrite, Urine NEGATIVE NEGATIVE Leukocyte Esterase, Urine NEGATIVE NEGATIVE Urinalysis Microscopic Result Value Ref Range WBC, Urine NONE 1-5, NONE /HPF RBC, Urine 1-2 NONE, 1-2, 3-5 /HPF CT angio chest for pulmonary embolism Result Date: 05/15/2023 Interpreted By: Orly Ibarra, STUDY: CT ANGIO CHEST FOR PULMONARY EMBOLISM; 05/15/2023 5:34 pm INDICATION: Signs/Symptoms:dyspnea. elevated d dimer. COMPARISON: None. ACCESSION NUMBER(S): [id number] ORDERING CLINICIAN: [place] LIU TECHNIQUE: Helical data acquisition of the chest was obtained with IV contrast material. MIP reconstructions. 68 mL of Omnipaque 350. Images were reformatted in axial, coronal, and sagittal planes. FINDINGS: Lungs and Pleura: Large right and small left pleural effusion with loculations. Interlobular septal thickening and ground-glass opacities suggestive of pulmonary edema. Mild paraseptal pulmonary emphysematous changes. No pneumothorax. Mediastinum and axilla: No evidence of pulmonary embolism. Subcarinal lymphadenopathy measuring 18 mm. Lymphadenopathy in the pretracheal and paratracheal stations also noted, as well as aortopulmonary window, measuring up to 17 mm. Cardiomegaly. No pericardial effusion. Reflux of contrast into the hepatic veins suggesting increased right heart pressure. No thoracic aortic aneurysm. Atherosclerosis. Atrial clip. Advanced coronary artery calcifications. Sternotomy wires status post CABG. Visualized Upper Abdomen: No worrisome findings in the visualized upper abdomen. MSK/Chest Wall: Left humeral neck fracture. No pulmonary embolism. Pulmonary edema with large right and small left pleural effusion. Mild pulmonary emphysematous changes. Mediastinal lymphadenopathy, reactive or neoplastic. Consider 3-6 month follow-up to ensure resolution. Signed by: Orly Ibarra 05/15/2023 6:30 PM Dictation workstation: [id number] XR chest 1 view Result Date: 05/15/2023 Interpreted By: Kamini Crawford, STUDY: XR CHEST 1 VIEW; 05/15/2023 4:19 pm INDICATION: CLINICAL INFORMATION: Signs/Symptoms:dyspnea. COMPARISON: None ACCESSION NUMBER(S): [id number] ORDERING CLINICIAN: AZ LIU TECHNIQUE: Portable chest one view. FINDINGS: The cardiac size is indeterminate in view of the AP projection. 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 A device overlying the left side of the mediastinum is thought to represent a left atrial appendage clip. There are diffuse hazy alveolar infiltrates present bilaterally along with moderate-sized bilateral effusions, more marked on the right. Postsurgical appearance of the chest. Bilateral infiltrates and effusions. Infiltrates and effusions raises the possibility of pulmonary edema and CHF. Follow-up to assure complete clearing is suggested. MACRO: none Signed by: Kamini Crawford 05/15/2023 4:47 PM Dictation workstation: [id number] Assessment/Plan 77-year-old male with a past medical history of coronary artery disease status post CABG, systolic CHF, atrial fibrillation, reported status post aortic valve replacement, s/p mitral valve repair, orthostatic hypotension, iron deficiency anemia, hypertension, hyperlipidemia, insomnia, GERD, BPH, subdural hematoma secondary to a fall and s/p bilateral bur hole evacuation 01/07/2023 who presented to the emergency room from assisted living facility for shortness of breath and a productive cough. On presentation, patient was found to have a hypertensive urgency along with an acute hypoxemic respiratory failure in the setting of pulmonary edema and a large right-sided pleural effusion. Admit patient to the inpatient medical service with telemetry and vital signs monitoring. Order echocardiogram Consult critical care given the right-sided pleural effusion and for consideration of thoracentesis Give Lasix 40 mg IV twice a day. Monitor ins and outs closely. Repeat BMP tomorrow. Given the productive cough, and given the right-sided pleural effusion, I will order procalcitonin level as well as sputum culture. But still, no clinical indications for antibiotic coverage. Continue home medications including the spironolactone 25 mg daily I am not sure why patient is not on any beta-blockers despite the reported history of coronary artery disease, atrial fibrillation, and congestive heart failure. I will wait for the echocardiogram report to come back and then decide on the next step. Also not sure why patient is not on any Eliquis. In the morning, we will try to reach out to his access nurse office to have a better understanding. SCDs for DVT prophylaxis Full code (This note was generated with voice recognition software and may contain errors including spelling, grammar, syntax and misrecognition of what was dictated, that are not fully corrected) Tara Blanco MD documented in this encounter [facility] Work Phone: 05-15-2023 Emergency department Note Associated Order(s): ECG 12 lead HPI Chief Complaint Patient presents with Shortness of Breath Pt from [facility] living with SOB. Hypoxic on RA. Reports recently started on oxygen at but prior to this week was not on oxygen. Has hx of CHF with increased peripheral edema over the last 2-3 days, Limitations to History: None HPI: 77-year-old male presents with concern for shortness of breath. Concern for worsening CHF. Patient placed on 1.5 L by nasal cannula by the nurse practitioner at [facility] 4 days ago. States he has had a cough productive of sputum. Denies any fever, chills, nausea, vomiting, abdominal pain, urinary symptoms. Additional History Obtained from: EMS ------ Physical Exam: VS: As documented in the triage note and EMR flowsheet from this visit were reviewed. Appearance: Alert. cooperative, in no acute distress. Skin: Intact, dry skin, no lesions, rash, petechiae or purpura. Eyes: PERRLA, EOMs intact, Conjunctiva pink with no redness or exudates. HENT: Normocephalic, atraumatic. Nares patent. No intraoral lesions. Neck: Supple, without meningismus. Trachea at midline. No lymphadenopathy. Pulmonary: Clear bilaterally with good chest wall excursion. No rales, rhonchi or wheezing. No accessory muscle use or stridor. Cardiac: Regular rate and rhythm, no rubs, murmurs, or gallops. Abdomen: Abdomen is soft, nontender, and nondistended. No palpable organomegaly. No rebound or guarding. No CVA tenderness. Nonsurgical abdomen. Genitourinary: Exam deferred. Musculoskeletal: Full range of motion. Pulses full and equal. No cyanosis, clubbing. Bilateral 2-3+ pitting edema. Neurological: Cranial nerves are grossly intact, grossly normal sensation, no weakness, no focal findings identified. Psychiatric: Appropriate mood and affect. No data recorded Patient History No past medical history on file. No past surgical history on file. No family history on file. Social History Tobacco Use Smoking status: Not on file Smokeless tobacco: Not on file Substance Use Topics Alcohol use: Not on file Drug use: Not on file Physical Exam ED Triage Vitals Temp Pulse Resp BP -- -- -- -- SpO2 Temp src Heart Rate Source Patient Position -- -- -- -- BP Location FiO2 (%) -- -- Physical Exam ED Course & MDM Diagnoses as of 05/16/23 1527 Acute on chronic congestive heart failure, unspecified heart failure type (CMS/HCC) Acute hypoxemic respiratory failure (CMS/HCC) Medical Decision Making Medical Decision Making: Patient hypoxemic upon arrival. Placed on 4 L by nasal cannula. Elevated BNP. Chest x-ray shows pulmonary edema. Treated with Lasix. Will be admitted for further diuresis and evaluation of his CHF. Stable at time of admission. Differential Diagnoses Considered: CHF exacerbation, pneumonia, pneumothorax, ACS Independent Interpretation of Studies: I independently interpreted: Chest x-ray shows pulmonary edema. Escalation of Care: Appropriate for admission for further treatment and evaluation. Case discussed with admitting hospitalist. Procedure ECG 12 lead Performed by: Az Liu DO Authorized by: Az Liu DO ECG interpreted by ED Physician in the absence of a access nurse: yes Comments: EKG interpreted by Dr. Az Liu: Atrial fibrillation at 65 bpm. QTc [address] changes. PVC. Az Liu DO 05/16/23 1529 documented in this encounter [facility] Work Phone: 05-15-2023 Physician Emergency department Note Associated Order(s): ECG 12 lead HPI Chief Complaint Patient presents with Shortness of Breath Pt from [facility] assisted living with SOB. Hypoxic on RA. Reports recently started on oxygen at but prior to this week was not on oxygen. Has hx of CHF with increased peripheral edema over the last 2-3 days, Limitations to History: None HPI: 77-year-old male presents with concern for shortness of breath. Concern for worsening CHF. Patient placed on 1.5 L by nasal cannula by the nurse practitioner at [facility] 4 days ago. States he has had a cough productive of sputum. Denies any fever, chills, nausea, vomiting, abdominal pain, urinary symptoms. Additional History Obtained from: EMS ------ Physical Exam: VS: As documented in the triage note and EMR flowsheet from this visit were reviewed. Appearance: Alert. cooperative, in no acute distress. Skin: Intact, dry skin, no lesions, rash, petechiae or purpura. Eyes: PERRLA, EOMs intact, Conjunctiva pink with no redness or exudates. HENT: Normocephalic, atraumatic. Nares patent. No intraoral lesions. Neck: Supple, without meningismus. Trachea at midline. No lymphadenopathy. Pulmonary: Clear bilaterally with good chest wall excursion. No rales, rhonchi or wheezing. No accessory muscle use or stridor. Cardiac: Regular rate and rhythm, no rubs, murmurs, or gallops. Abdomen: Abdomen is soft, nontender, and nondistended. No palpable organomegaly. No rebound or guarding. No CVA tenderness. Nonsurgical abdomen. Genitourinary: Exam deferred. Musculoskeletal: Full range of motion. Pulses full and equal. No cyanosis, clubbing. Bilateral 2-3+ pitting edema. Neurological: Cranial nerves are grossly intact, grossly normal sensation, no weakness, no focal findings identified. Psychiatric: Appropriate mood and affect. No data recorded Patient History No past medical history on file. No past surgical history on file. No family history on file. Social History Tobacco Use Smoking status: Not on file Smokeless tobacco: Not on file Substance Use Topics Alcohol use: Not on file Drug use: Not on file Physical Exam ED Triage Vitals Temp Pulse Resp BP -- -- -- -- SpO2 Temp src Heart Rate Source Patient Position -- -- -- -- BP Location FiO2 (%) -- -- Physical Exam ED Course & MDM Diagnoses as of 05/16/23 1527 Acute on chronic congestive heart failure, unspecified heart failure type (CMS/HCC) Acute hypoxemic respiratory failure ([facility]) Medical Decision Making Medical Decision Making: Patient hypoxemic upon arrival. Placed on 4 L by nasal cannula. Elevated BNP. Chest x-ray shows pulmonary edema. Treated with Lasix. Will be admitted for further diuresis and evaluation of his CHF. Stable at time of admission. Differential Diagnoses Considered: CHF exacerbation, pneumonia, pneumothorax, ACS Independent Interpretation of Studies: I independently interpreted: Chest x-ray shows pulmonary edema. Escalation of Care: Appropriate for admission for further treatment and evaluation. Case discussed with admitting hospitalist. Procedure ECG 12 lead Performed by: Az Liu DO Authorized by: Az Liu DO ECG interpreted by ED Physician in the absence of a access nurse: yes Comments: EKG interpreted by Dr. Az Liu: Atrial fibrillation at 65 bpm. QTc [address] changes. PVC. Az Liu DO 05/16/23 1529 [facility] Work Phone: 05-12-2023 Telephone encounter Note Surgery is approved Surg 06/05 PAT 05/29 12:30 PO 06/22 1 Case# [id number] Packet will be mailed to patient Left vm with direct # for cb [facility] 05-12-2023 Miscellaneous Notes Surgery is approved Surg 06/05 PAT 05/29 12:30 PO 06/22 1 Case# [id number] Packet will be mailed to patient Left vm with direct # for cb Discussed with Dr. Willams; this will be done as an outpatient procedure barring an issues in surgery. Per Dr. Willams note, he stated that this was going to be done outpatient and they patient and family are both under the impression that they will be in and out same day This is an inpatient procedure Is this outpatient or outpatient bedded? Pt's son called he's still in the hospital and he will call back to reschedule. Spoke to son and he wants to keep surgery date for right now. He stated once he finds out more he will back and if they need to move it he will at that time. No auth was required for surgery. Pt son left another vm, requesting call back Pt's son LM stating he fell and is in hospital and is wanting to reschedule? Call back provided. Surgery: 04/25/23 @730 PAT: 04/18/23 @730 PO: 05/07/23 @9 Case #[id number] Spoke to pt's son and made him aware no further questions. [place] [address]. Auth was submitted. Sent a message to Radha Al for cpt codes for surgery. Will submit once I hear back. documented in this encounter [facility] 05-11-[address] Rachel aparicio; this will be done as an outpatient procedure barring an issues in surgery. [facility] 05-11-2023 Telephone encounter Note Discussed with Dr. Willams; this will be done as an outpatient procedure barring an issues in surgery. [facility] Work Phone: 05-09-2023 Note This is an inpatient procedure [facility] 05-09-2023 Telephone encounter Note Per Dr. Willams note, he stated that this was going to be done outpatient and they patient and family are both under the impression that they will be in and out same day [facility] 05-09-[address] Willams note, he stated that this was going to be done outpatient and they patient and family are both under the impression that they will be in and out same day This is an inpatient procedure Is this outpatient or outpatient bedded? Pt's son called he's still in the hospital and he will call back to reschedule. Spoke to son and he wants to keep surgery date for right now. He stated once he finds out more he will back and if they need to move it he will at that time. No auth was required for surgery. Pt son left another , requesting call back Pt's son LM stating he fell and is in hospital and is wanting to reschedule? Call back provided. Surgery: 04/25/23 @730 PAT: 04/18/23 @730 PO: 05/07/23 @9 Case #[id number] Spoke to pt's son and made him aware no further questions. [place] [address]. Auth was submitted. Sent a message to Radha Al for cpt codes for surgery. Will submit once I hear back. documented in this encounter [facility] 05-09-2023 Telephone encounter Note This is an inpatient procedure [facility] [employer] Work Phone: 05-09-2023 Telephone encounter Note Is this outpatient or outpatient bedded? [facility] 04-15-2023 Miscellaneous Notes Pt's son called he's still in the hospital and he will call back to reschedule. Spoke to son and he wants to keep surgery date for right now. He stated once he finds out more he will back and if they need to move it he will at that time. No auth was required for surgery. Pt son left another , requesting call back Pt's son LM stating he fell and is in hospital and is wanting to reschedule? Call back provided. Surgery: 04/25/23 @730 PAT: 04/18/23 @730 PO: 05/07/23 @9 Case #[id number] Spoke to pt's son and made him aware no further questions. [place]ha [place] [id number]. Auth was submitted. Sent a message to Radha Al for cpt codes for surgery. Will submit once I hear back. documented in this encounter [facility] 04-15-2023 Telephone encounter Note Pt's son called he's still in the hospital and he will call back to reschedule. [facility] [employer] 04-08-2023 Telephone encounter Note Spoke to son and he wants to keep surgery date for right now. He stated once he finds out more he will back and if they need to move it he will at that time. No auth was required for surgery. [facility] [employer] 04-08-2023 Miscellaneous Notes Spoke to son and he wants to keep surgery date for right now. He stated once he finds out more he will back and if they need to move it he will at that time. No auth was required for surgery. Pt son left another , requesting call back Pt's son LM stating he fell and is in hospital and is wanting to reschedule? Call back provided. Surgery: 04/25/23 @730 PAT: 04/18/23 @730 PO: 05/07/23 @9 Case #[id number] Spoke to pt's son and made him aware no further questions. [place] [address]. Auth was submitted. Sent a message to Radha Al for cpt codes for surgery. Will submit once I hear back. documented in this encounter [facility] 04-08-2023 Telephone encounter Note Pt son left another vm, requesting call back [facility] 04-07-2023 Telephone encounter Note Pt's son LM stating he fell and is in hospital and is wanting to reschedule? Call back provided. [facility] 04-07-2023 Miscellaneous Notes Pt's son LM stating he fell and is in hospital and is wanting to reschedule? Call back provided. Surgery: 04/25/23 @730 PAT: 04/18/23 @730 PO: 05/07/23 @9 Case #[id number] Spoke to pt's son and made him aware no further questions. [place]oke [place] Radha [place] 48677. Auth was submitted. Sent a message to Radha Al for cpt codes for surgery. Will submit once I hear back. documented in this encounter [facility] 04-07-2023 Telephone encounter Note Message released to patient as written. Patient's further questions if applicable: Donal states she would like to inform the office the patient's JIGAR note was never received today, 04/07/23. Donal states she would like to have the patient's note refaxed to fax number: [phone]. Donal states she will keep an eye out for the document to be received. Please contact Donal and advise. Were all questions from office addressed or relayed to the patient from encounter: Yes [facility] 04-07-2023 Miscellaneous Notes Message released to patient as written. Patient's further questions if applicable: Donal states she would like to inform the office the patient's JIGAR note was never received today, 04/07/23. Donal states she would like to have the patient's note refaxed to fax number: [phone]. Donal states she will keep an eye out for the document to be received. Please contact Donal and advise. Were all questions from office addressed or relayed to the patient from encounter: Yes Note faxed. Name of caller: Donal Contact phone number: [phone] Relationship to Patient: [facility] Provider: екатерина Practice: neuro Chief Complaint/Reason for Call: donal is calling in stating that they are needing the office visit notes from when the patient seen the provider on 03/31/23 for the incision check. if the office could fax them over to [phone] please advise and thank you Best time of day caller can be reached: any Patient advised that office/PCP has 24-48 business hours to return their call: Yes documented in this encounter [facility] [employer] 04-07-2023 Telephone encounter Note Note faxed. [facility] [employer] 04-04-2023 Telephone encounter Note Name of caller: Donal Contact phone number: [phone] Relationship to Patient: [facility] Provider: екатерина Practice: neuro Chief Complaint/Reason for Call: donal is calling in stating that they are needing the office visit notes from when the patient seen the provider on 03/31/23 for the incision check. if the office could fax them over to [phone] please advise and thank you Best time of day caller can be reached: any Patient advised that office/PCP has 24-48 business hours to return their call: Yes [facility] [employer] 04-01-2023 Telephone encounter Note Surgery: 04/25/23 @730 PAT: 04/18/23 @730 PO: 05/07/23 @9 Case #[id number] Spoke to pt's son and made him aware no further questions. [facility] [employer] 04-01-2023 Miscellaneous Notes Surgery: 04/25/23 @730 PAT: 04/18/23 @730 PO: 05/07/23 @9 Case #[id number] Spoke to pt's son and made him aware no further questions. [place]oke [place]ha [place] [address]. Auth was submitted. Sent a message to Radha Al for cpt codes for surgery. Will submit once I hear back. documented in this encounter [facility] [employer] 03-31-2023 Telephone encounter Note [place]oke [place] [address]. Auth was submitted. [facility] [employer] 03-31-2023 Miscellaneous Notes [place]oke [place] [address]. Auth was submitted. Sent a message to Radha Al for cpt codes for surgery. Will submit once I hear back. documented in this encounter [facility] [employer] 03-31-2023 Telephone encounter Note Sent a message to Radha Al for cpt codes for surgery. Will submit once I hear back. [facility] [employer] 03-31-2023 History of Present illness Narrative Images from the original note were not included. NEUROSURGERY and SPINE POST-OP NOTE Patient Name: Ada June Patient : 1945 PCP: Jenelle Oconnell MD History of Present Ilness: Patient is post-op bilateral bur hole performed 01/07/23. He was reported by his health nurse that he is having delayed healing at the incision site; bluish metal plate is exposed. He reports that he has had no fevers, there has been minimal drainage from the incision site. The incision area of question is the right sided posterior incision for [place] hole. His son reports that he was placed on a course of antibiotics which she has completed. He thinks that this was Keflex. They are also reporting mupirocin ointment over the wound as well. Past Medical History: History reviewed. No pertinent past medical history. Past Surgical History: History reviewed. No pertinent surgical history. Home Medications: Prior to Admission medications Medication Sig Start Date End Date Taking? Authorizing Provider acetaminophen (Tylenol) 500 MG tablet Take 2 tablets (1,000 mg) by mouth in the morning and 2 tablets (1,000 mg) at noon and 2 tablets (1,000 mg) before bedtime. Do all this for 10 days. 01/15/23 01/25/23 Katya Oliver PA-C amLODIPine (Norvasc) 10 MG tablet Take 1 tablet (10 mg) by mouth daily. 01/15/23 02/14/23 Katya Oliver PA-C amLODIPine (Norvasc) 5 MG tablet Take 5 mg by mouth daily. Historical Provider, atorvastatin (Lipitor) 20 MG tablet Take 20 mg by mouth daily. Historical Provider, enoxaparin (Lovenox) 30 MG/0.3ML solution prefilled syringe Inject 0.3 mL (30 mg) under the skin in the morning and 0.3 mL (30 mg) in the evening. While in facility. 01/15/23 02/14/23 Katya Oliver PA-C melatonin 3 MG tablet Take 1 tablet (3 mg) by mouth Nightly. 01/15/23 02/14/23 Katya Oliver PA-C omeprazole (PriLOSEC) [address] capsule Take 20 mg by mouth daily. Do not crush or chew. Historical Provider, ondansetron ODT (Zofran-ODT) 4 MG disintegrating tablet Take 1 tablet (4 mg) by mouth every 8 hours as needed for nausea or vomiting for up to 7 days. 01/15/23 01/22/23 Katya Oliver PA-C oxyCODONE (Roxicodone) 5 MG immediate release tablet Take 0.5-1 tablets (2.5-5 mg) by mouth every 6 hours as needed for moderate pain (4-6) or severe pain (7-10) (pain) for up to 7 days. 01/15/23 01/22/23 Katya Oliver PA-C polyethylene glycol, PEG, 3350 (Miralax) 17 g packet Take 17 g by mouth Daily as needed (constipation) for up to 10 days. 01/15/23 01/25/23 Katya Oliver PA-C QUEtiapine (SEROquel) 25 MG tablet Take 0.5 tablets (12.5 mg) by mouth 2 times daily as needed (first line for agitation) for up to 10 days. 01/15/23 01/25/23 Katya Oliver PA-C QUEtiapine (SEROquel) 50 MG tablet Take 1 tablet (50 mg) by mouth Nightly. 01/15/23 02/14/23 Katya Oliver PA-C sennosides (Senokot) 8.6 MG tablet Take 1 tablet (8.6 mg) by mouth Nightly. 01/15/23 02/14/23 Katya Oliver PA-C spironolactone (Aldactone) 25 MG tablet Take 25 mg by mouth daily. Historical Provider, tamsulosin (Flomax) 0.4 MG 24 hr capsule Take 1 capsule (0.4 mg) by mouth daily. 01/15/23 Katya Oliver PA-C Allergies: Patient has no known allergies. Social History: TOBACCO: reports that he quit smoking about 15 years ago. His smoking use included cigarettes. He does not have any smokeless tobacco history on file. ETOH: reports that he does not currently use alcohol. RECREATIONAL DRUG USE: Social History Substance and Sexual Activity Drug Use Not Currently Family History: No family history on file. Review of Systems: Review of Systems Constitutional: Negative. HENT: Negative. Eyes: Negative. Respiratory: Negative. Cardiovascular: Negative. Gastrointestinal: Negative. Endocrine: Negative. Genitourinary: Negative. Musculoskeletal: Negative. Skin: Negative. Neurological: Negative. Psychiatric/Behavioral: Negative. Physical Examination: Vitals: 03/31/23 0930 BP: (!) 169/67 Pulse: (!) 49 Physical Exam Constitutional: Appearance: Normal appearance. HENT: Head: Normocephalic. Comments: Right-sided posterior bur hole incision with scabbing present, edges are not well-approximated. Incision is open with exposed hardware. Eyes: Extraocular Movements: Extraocular movements intact. Pupils: Pupils are equal, round, and reactive to light. Cardiovascular: Rate and Rhythm: Normal rate. Pulmonary: Effort: Pulmonary effort is normal. Abdominal: Palpations: Abdomen is soft. Musculoskeletal: General: Normal range of motion. Cervical back: Normal range of motion and neck supple. Skin: General: Skin is warm and dry. Neurological: General: No focal deficit present. Mental Status: He is alert and oriented to person, place, and time. Cranial Nerves: Cranial nerves 2-12 are intact. Motor: Motor strength is normal. Gait: Gait is intact. Psychiatric: Mood and Affect: Mood normal. Judgment: Judgment normal. Neurologic Exam Mental Status Oriented to person, place, and time. Cranial Nerves Cranial nerves II through XII intact. CN III, IV, Pupils are equal, round, and reactive to light. Motor Exam Muscle bulk: normal Overall muscle tone: normal Strength Strength 5/5 throughout. Sensory Exam Light touch normal. Gait, Coordination, and Reflexes Gait Gait: normal The right posterior cranial bur hole incision is open, you can see the blue cranial plate at the bottom of the incision there is no active drainage. Results Labs: Last 24hrs No results found for this or any previous visit (from the past 24 hour(s)). Radiology Personal review: ASSESSMENT / PLAN : Right posterior bur hole dehiscence of incision. Today I recommended to him and his son I&D of that incision with removal of the cranial plate. Risks and benefits of the procedure were discussed with him, they would like to proceed with surgery. Will schedule him for surgery at his convenience. Procedure: Revision of R posterior cranial wound, removal of cranial plate Anesthesia: GET Time: 1 Positioning/Frame: Supine Company/Implants: N O-Arm: N C-Arm: N Stealth Navigation: N Davalos: Horseshoe Microscope: N Brace: N Pre-Op Imaging:N Intranerve: N Inpatient/Outpatient: Out Medications to DC: N Other:Dont know a code for this, ask Radha Al Diagnosis Plan 1. SDH (subdural hematoma) (HCC) documented in this encounter [facility] 01-22-2023 History of Present illness Narrative NEUROSURGERY and SPINE POST-OP NOTE Patient Name: Ada June Patient : 1945 PCP: Jenelle Oconnell MD /History of Present Ilness: Patient is post-op bilateral bur hole performed ~ 2 weeks ago. He is doing very well, both he and his family feel he is much improved mental status wilburn and neurologically postoperatively. Past Medical History: History reviewed. No pertinent past medical history. Past Surgical History: History reviewed. No pertinent surgical history. Home Medications: Prior to Admission medications Medication Sig Start Date End Date Taking? Authorizing Provider acetaminophen (Tylenol) 500 MG tablet Take 2 tablets (1,000 mg) by mouth in the morning and 2 tablets (1,000 mg) at noon and 2 tablets (1,000 mg) before bedtime. Do all this for 10 days. 01/15/23 01/25/23 Katya Oliver PA-C amLODIPine (Norvasc) 10 MG tablet Take 1 tablet (10 mg) by mouth daily. 01/15/23 02/14/23 Katya Oliver PA-C amLODIPine (Norvasc) 5 MG tablet Take 5 mg by mouth daily. Historical Provider, atorvastatin (Lipitor) 20 MG tablet Take 20 mg by mouth daily. Historical Provider, enoxaparin (Lovenox) 30 MG/0.3ML solution prefilled syringe Inject 0.3 mL (30 mg) under the skin in the morning and 0.3 mL (30 mg) in the evening. While in facility. 01/15/23 02/14/23 Katya Oliver PA-C melatonin 3 MG tablet Take 1 tablet (3 mg) by mouth Nightly. 01/15/23 02/14/23 Katya Oliver PA-C omeprazole (PriLOSEC) [address] capsule Take 20 mg by mouth daily. Do not crush or chew. Historical Provider, ondansetron ODT (Zofran-ODT) 4 MG disintegrating tablet Take 1 tablet (4 mg) by mouth every 8 hours as needed for nausea or vomiting for up to 7 days. 01/15/23 01/22/23 Katya Oliver PA-C oxyCODONE (Roxicodone) 5 MG immediate release tablet Take 0.5-1 tablets (2.5-5 mg) by mouth every 6 hours as needed for moderate pain (4-6) or severe pain (7-10) (pain) for up to 7 days. 01/15/23 01/22/23 Katya Oliver PA-C polyethylene glycol, PEG, 3350 (Miralax) 17 g packet Take 17 g by mouth Daily as needed (constipation) for up to 10 days. 01/15/23 01/25/23 Katya Oliver PA-C QUEtiapine (SEROquel) 25 MG tablet Take 0.5 tablets (12.5 mg) by mouth 2 times daily as needed (first line for agitation) for up to 10 days. 01/15/23 01/25/23 Katya Oliver PA-C QUEtiapine (SEROquel) 50 MG tablet Take 1 tablet (50 mg) by mouth Nightly. 01/15/23 02/14/23 Katya Oliver PA-C sennosides (Senokot) 8.6 MG tablet Take 1 tablet (8.6 mg) by mouth Nightly. 01/15/23 02/14/23 Katya Oliver PA-C spironolactone (Aldactone) 25 MG tablet Take 25 mg by mouth daily. Historical Provider, tamsulosin (Flomax) 0.4 MG 24 hr capsule Take 1 capsule (0.4 mg) by mouth daily. 01/15/23 Katay Olivre PA-C Allergies: Patient has no known allergies. Social History: TOBACCO: reports that he quit smoking about 9 years ago. His smoking use included cigarettes. He does not have any smokeless tobacco history on file. ETOH: reports current alcohol use. RECREATIONAL DRUG USE: Social History Substance and Sexual Activity Drug Use Not Currently Family History: No family history on file. Review of Systems: Review of Systems Physical Examination: Vitals: 01/22/23 1144 BP: (!) 178/72 Pulse: 59 Physical Exam Neurologic Exam Incisions are healing appropriately Results Labs: Last 24hrs No results found for this or any previous visit (from the past 24 hour(s)). Radiology Personal review: Follow-up CT scan of the head on postop day 1 shows an excellent result with good resolution of the bilateral subdural hematomas ASSESSMENT / PLAN : He is status post bilateral bur holes for subdural hematoma. He is progressing as expected. He will continue his home exercise and therapy program. We encouraged him to not pick at his incisions and allow the scab to fall off over time. He can now follow-up with us on an as-needed basis. He and his family are quite pleased with his surgical results. Diagnosis Plan 1. SDH (subdural hematoma) (HCC) documented in this encounter [facility] 01-20-2023 Telephone encounter Note Appointment rescheduled to get sutures out. Directions given to family. [facility] 01-20-2023 Miscellaneous Notes Appointment rescheduled to get sutures out. Directions given to family. Called patient back. Left vouce mail with office to call back. Cancelled his appointment for today. Name of Caller: Yareli Contact Phone Number: [phone] Reason for Appointment: pt needs to re-schedule his appt please call yareli back to re-schedule Office Name: neurology Medication Refills need, if any: Medication Name: documented in this encounter [facility] 01-20-2023 Telephone encounter Note Name of caller: Susanne Contact phone number: [phone] Relationship to Patient: [facility] Provider: Dr. Willams Practice: Neurosurgery Chief Complaint/Reason for Call: Susanne states that she would like to know if the doctor would like for them to remove the pt oswaldo at their facility. Please call Susanne and advise. Best time of day caller can be reached: Any Patient advised that office/PCP has 24-48 business hours to return their call: No [facility] 01-20-2023 Miscellaneous Notes Name of caller: Susanne Contact phone number: [phone] Relationship to Patient: [facility] Provider: Dr. Willams Practice: Neurosurgery Chief Complaint/Reason for Call: Susanne states that she would like to know if the doctor would like for them to remove the pt oswaldo at their facility. Please call Susanne and advise. Best time of day caller can be reached: Any Patient advised that office/PCP has 24-48 business hours to return their call: No documented in this encounter [facility] 01-20-2023 Telephone encounter Note Called patient back. Left vouce mail with office to call back. Cancelled his appointment for today. [facility] 01-20-2023 Telephone encounter Note Name of Caller: Yareli Contact Phone Number: [phone] Reason for Appointment: pt needs to re-schedule his appt please call yareli back to re-schedule Office Name: neurology Medication Refills need, if any: Medication Name: [facility] 01-15-2023 Note Department of Trauma / Critical Care Discharge Summary Name: Ada June Date: 01/15/2023 7:14 AM : 1945 Age/Sex: 77 y.o. male Admit Date: 01/06/23 Discharge Date: 01/15/23 Attending: Adi Ortega MD Discharge Diagnosis: 1. SDH (subdural hematoma) (HCC) 2. Cognitive impairment 3. 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 BMI Classification: Normal Weight (BMI 18.5-24.9) Reason for Hospitalization: The patient was admitted for acute on chronic SDH. Hospital Course (Care, treatment and services provided): Please see H&P and prior notes for more detailed summary of previous investigations and clinical assessment prior to this admission. Brief HPI 77 yo M s/p fall from standing on coumadin. Fall was unwitnessed, patients son found him in the bathtub after. Patient was noted by family to have AMS over the last couple days. Patient went to OR with NSGY 01/07 for evacuation of bilateral SDH and returned to the SICU after the procedure. 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 PROCEDURES: - Bilateral craniotomy and evacuation of subdural hematoma with NSGY Incidental Findings: none Hospital course: Patient was a direct admit transfer from [place] with acute/subacute bilateral SDH, was given Kcentra and Vit K. Cardiology evaluated patient and hold OAC was determined until OP follow up with Cardiology where further evaluation will be needed whether to restart or not. NSGY consent patient for audie holes for evacuation which he received on 01/07/23. Subdural drains were removed and patient transferred to surgical floor. Exam continued to improve and patient able to start working with PT/OT. Rehab was recommended and patient agreeable. Palliaitve, Geriatrics and Psych involved in patients care. He established his son as HCPSNEHAL. Discharged to [place] [facility] in stable condition. Alda to be removed 01/20. Consultations: IP CONSULT TO NEUROSURGERY IP CONSULT TO PALLIATIVE CARE IP CONSULT TO GERIATRICS IP CONSULT TO CARDIOLOGY IP CONSULT TO SOCIAL WORK IP CONSULT TO PSYCHIATRY PCP: Jenelle Oconnell MD Recommended Follow-ups: Treatments and Procedures with outcomes: Labs: Data Review Data CBC with Differential: No results found for: WBC , RBC , HGB , HCT , PLT CMP: No results found for: NA , K , CL , CO2 , BUN , CREATININE , AGRATIO , LABGLOM , GLUCOSE , PROT , CALCIUM , BILITOT , ALKPHOS , AST , ALT BMP: Hepatic Function Panel: Ionized Calcium: No components found for: IONCA Magnesium: No results found for: MG Phosphorus: No results found for: PHOS PT/INR: No results found for: PROTIME , INR PTT: No results found for: APTT [APTT Last 3 Troponin: No results found for: TROPONINI Urine Culture: No components found for: CURINE Blood Culture: No components found for: CBLOOD , CFUNGUSBL Blood Culture from Central Line: No components found for: CBLOODLN Stool Culture: No components found for: CSTOOL Sputum Culture: No components found for: CSPUTUM Sputum Culture for AFB: No components found for: CAFBSM Wound Culture: n/a Procedures: - Bilateral craniotomy and evacuation of subdural hematoma with NSGY Significant Imaging Results: ECG 12 lead Result Date: 01/08/2023 Atrial fibrillation Borderline left axis deviation Anterior infarct, old Nonspecific T abnormalities, lateral leads Electronically Signed On 01-08-2023 12:53:32 EST by [address]ayla Mari CT head wo IV contrast Result Date: 01/07/2023 Patient Name: ADA JUNE : 1945 Exam Date/Time: 01/07/2023 04:25 Procedure: CT HEAD WO IV CONTRAST Ordering Provider: ORTEGA LAURA Reason For Exam: SDH, prior CT in PACS EXAMINATION: CT HEAD WO IV CONTRAST HISTORY: Subdural hemorrhage. TECHNIQUE: CT head without contrast. Dose reduction was employed with automated exposure control. COMPARISON: None. RESULT: Study was not presented to me for interpretation until time of dictation on 01/07/2023. 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 There is at least mild mass effect on the bilateral frontal and parietal lobes as well as right temporal lobe with areas of (more content not included)... [facility] 01-15-2023 Miscellaneous Notes Patient Choice Patient Name: ADA JUNE Date of : 1945 All Providers Sent Referral Name: [facility] Address: [address] [place] [address] Notified patient at bedside of pending dc and cherry picker operator to to [facility]. Permission given to call son Guilherme to notify. Family Communication Number Called: [phone] Name of Designated Family Senior Contract Specialist: Guilherme Relationship to Patient: son Phone Call Outcome: I spoke with the individual listed above. Family Senior Contract Specialist Updated on the Following: Updated on dc to [facility] [facility] and cherry picker operator time. Images from the original note were not included. Care Management Progress Note Transport set for noon cherry picker operator to [facility]. Will call son this am notify of approval and dc time. Discharge Milestones and Delays Expected Date/Time: 01/15/[address] discharge order Complete med reconciliation Case mgmt discharge readiness Clinical Stability Diagnsotic Workup Expected Discharge History Expected Date/Time Set By Reviewed At 01/15/2023 Midday Mona Terry RN 01/15/2023 5:28 AM 01/14/2023 Mona Terry RN 01/14/2023 11:39 AM 01/15/2023 Rosalba Jones RN 01/13/2023 10:[address] [facility] 01/11/2023 Tamra Callejas RN 01/10/2023 9:56 AM 01/10/2023 Mona Terry RN 01/10/2023 5:21 AM 01/13/2023 Mona Terry RN 01/09/2023 6:50 AM 01/13/2023 Mona Terry RN 01/08/2023 9:13 AM 01/09/2023 Bashir Celeste DO 01/06/2023 10:26 PM Length of Stay (Days): 9 GMLOS: 6.6 The patient is Moderately Stable - Low risk of patient condition declining or worsening The patient's goals for the shift include Remain safe The clinical goals for the shift include stable neuro status Over the shift, the patient did make progress toward the following goals. Barriers to progression include n/a. Recommendations to address these barriers include n/a. Auth received for admission to [facility]. [id number]. Called admissions left message requesting return call. Images from the original note were not included. Care Management Progress Note Requested auth to be submitted for [facility]. Awaiting approval. CM MATEO completed, and ambulance sheet at desk. Discharge Milestones and Delays Expected Date/Time: 01/14/[address] discharge order Complete med reconciliation Case mgmt discharge readiness Clinical Stability Diagnsotic Workup Expected Discharge History Expected Date/Time Set By Reviewed At 01/14/2023 Mona Terry RN 01/14/2023 11:39 AM 01/15/2023 Rosalba Jones RN 01/13/2023 10:[address] [facility] 01/11/2023 Tamra Callejas RN 01/10/2023 9:56 AM 01/10/2023 Mona Terry RN 01/10/2023 5:21 AM 01/13/2023 Mona Terry RN 01/09/2023 6:50 AM 01/13/2023 Mona Terry RN 01/08/2023 9:13 AM 01/09/2023 Bashir Celeste DO 01/06/2023 10:26 PM Length of Stay (Days): 8 GMLOS: 6.6 Updated Notes placed to [facility] via [facility] per TCC request. Await review and response regarding ability to accept. TCC notified. Images from the original note were not included. Care Management Progress Note Auth was started on 01/10/2023 to go to [facility], they were requesting updated PT/OT/ST notes. [facility] was tasked to send. CM to await auth. Discharge Milestones and Delays Expected Date/Time: 01/15/[address] discharge order Complete med reconciliation Case mgmt discharge readiness Clinical Stability Diagnsotic Workup Expected Discharge History Expected Date/Time Set By Reviewed At 01/15/2023 Rosalba Jones RN 01/13/2023 10:[address] [facility] 01/11/2023 Tamra Callejas RN 01/10/2023 9:56 AM 01/10/2023 Mona Terry RN 01/10/2023 5:21 AM 01/13/2023 Mona Terry RN 01/09/2023 6:50 AM 01/13/2023 Mona Terry RN 01/08/2023 9:13 AM 01/09/2023 Bashir Celeste DO 01/06/2023 10:26 PM Length of Stay (Days): 7 GMLOS: 6.6 Problem: Potential for Falls Goal: I will remain free of falls Outcome: Progressing Problem: Pain - Adult Goal: Verbalizes/displays adequate comfort level or baseline comfort level Outcome: Progressing Problem: Safety - Adult Goal: Free from fall injury Outcome: Progressing Problem: Chronic Conditions and Co-morbidities Goal: Patient's chronic conditions and co-morbidity symptoms are monitored and maintained or improved Outcome: Progressing Problem: Potential for Compromised Skin Integrity Goal: Skin Integrity is Maintained or Improved Outcome: Progressing The patient is Moderately Stable - Low risk of patient condition declining or worsening The patient's goals for the shift include The clinical goals for the shift include stable neuro status Over the shift, the patient did not make progress toward the following goals. Barriers to progression include . Recommendations to address these barriers include . Family Communication Name of Designated Family Senior Contract Specialist: Guilherme Slade Relationship: son Phone Call Outcome: I spoke with the individual listed above. Family Senior Contract Specialist Updated on the Following: Family requested to speak with me, I went to the bedside and spoke with patient's son Guilherme June at length regarding his concerns. He states he believes his father does not have the ability to make his own financial or health care decisions. He explains many concerns about his father being scammed out of thousands of dollars. He also states his finances need attention as they are not in good standing. His dad no longer drives and his cognition is concerning to the son. Guilherme explains that is dad is good at leading providers to believe that he is competent but Guilherme explains many instances that concern him about his dad's baseline mental health and capacity. Guilherme would like his father to eventually be placed as he does not believe he is safe to be home alone. He is attempting to obtain the legal documents needed to assist his father with health and financial decisions. The gas operations superintendent licensed clinical social worker and geriatric teams were notified to assist with these goals. Spoke with Guilherme June again, he is requesting a [facility] evaluation due to his father's history of an obsession/addiction to contact various women. Guilherme states that his father has spent approximately $60-70,000 over the last 1.5 to 2 years for various pictures and communication with women. Guilherme is frustrated/concerned and does not understand why his dad continues these behaviors, despite him addressing this with his father. He has explained that these are scams , yet the behaviors continue. Problem: Knowledge Deficit Goal: Patient/family/caregiver demonstrates understanding of disease process, treatment plan, medications, and discharge instructions Outcome: Progressing Problem: Potential for Falls Goal: I will remain free of falls Outcome: Progressing Problem: Pain - Adult Goal: Verbalizes/displays adequate comfort level or baseline comfort level Outcome: Progressing Problem: Safety - Adult Goal: Free from fall injury Outcome: Progressing Problem: Chronic Conditions and Co-morbidities Goal: Patient's chronic conditions and co-morbidity symptoms are monitored and maintained or improved Outcome: Progressing Problem: Safety - Non-violent/Interference with Medical Treatment Restraint Goal: Remains free of injury from restraints (Restraint for Interference with Surface Plate Finisher) Outcome: Progressing Goal: Free from restraint(s) (Restraint for Interference with Surface Plate Finisher) Outcome: Progressing Problem: Problem Interventions Goal: Assess Nutritional Intake Outcome: Progressing Problem: Potential for Compromised Skin Integrity Goal: Skin Integrity is Maintained or Improved Outcome: Progressing Goal: Nutritional status is improving Outcome: Progressing Problem: Urinary Incontinence Goal: Perineal skin integrity is maintained or improved Outcome: Progressing The clinical goals for the shift include stable neuro status Palliative Care Interdisciplinary Team Note: Diagnosis: Principal Problem: SDH (subdural hematoma) (HCC) Active Problems: Acute metabolic encephalopathy Fall Cognitive impairment Debility Coronary artery disease involving [place] coronary artery of [place] heart Longstanding persistent atrial fibrillation (HCC) 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 male with chief complaint of: SDH Reason Palliative Following:Goals of Care Plan:sign off dc to [facility] Code Status: Full Code Medications: Palliative Care Not Managing Any Medications Nursing: Jail Care Social Work: No Unmet Needs Spiritual Care: No Unmet Needs Pharmacy: No Unmet Needs Psychology/Psychiatry: No Unmet Needs Images from the original note were not included. Care Management Progress Note PT recs rehab. Met with patient at bedside, agreeable to placement. Would like [facility]. Referral sent. Spoke with Kellen in admissions, accepted and submitted for insurance approval. Ambulance sheet at desk. CM MATEO completed. Following. Discharge Milestones and Delays Expected Date/Time: 01/11/[address] discharge order Complete med reconciliation Case mgmt discharge readiness Clinical Stability Diagnsotic Workup Expected Discharge History Expected Date/Time Set By Reviewed At 01/11/2023 Tamra Callejas RN 01/10/2023 9:56 AM 01/10/2023 Mona Terry RN 01/10/2023 5:21 AM 01/13/2023 Mona Terry RN 01/09/2023 6:50 AM 01/13/2023 Mona Terry RN 01/08/2023 9:13 AM 01/09/2023 Bashir Celeste DO 01/06/2023 10:26 PM Length of Stay (Days): 4 GMLOS: 6.6 Problem: Knowledge Deficit Goal: Patient/family/caregiver demonstrates understanding of disease process, treatment plan, medications, and discharge instructions Outcome: Progressing Problem: Potential for Falls Goal: I will remain free of falls Outcome: Progressing Images from the original note were not included. Care Management Progress Note Patient remains on T2, s/p fall with SDH. POD#1 audie holes, drains in place. Speech eval pending.. PT/OT pending for dc recommendations. Geriatrics and Palliative Care following. Will follow for dc needs. Discharge Milestones and Delays Expected Date/Time: 01/13/[address] discharge order Complete med reconciliation Case mgmt discharge readiness Clinical Stability Diagnsotic Workup Expected Discharge History Expected Date/Time Set By Reviewed At 01/13/2023 Mona Terry RN 01/08/2023 9:13 AM 01/09/2023 Bashir Celeste DO 01/06/2023 10:26 PM Length of Stay (Days): 2 GMLOS: 3.1 Palliative Care Interdisciplinary Team Note: Diagnosis: Principal Problem: SDH (subdural hematoma) (HCC) Active Problems: Acute metabolic encephalopathy Fall Cognitive impairment Debility Chief Complaint: Ada June is a 77 y.o. male with chief complaint of: SDH Reason Palliative Following:Goals of Care Plan:Follow Clinical Course and Ongoing Goals of Care Discussions Code Status: Full Code Medications: Palliative Care Not Managing Any Medications Nursing: Jail Care Social Work: No Unmet Needs Spiritual Care: No Unmet Needs Pharmacy: No Unmet Needs Psychology/Psychiatry: No Unmet Needs OPERATIVE NOTE Patient Name: Ada June : 1945 DATE OF PROCEDURE: 01/07/2023 SURGEON: Ada Willams MD ACOUSTICAL LOGGING ENGINEER: Sonia Garces CNP PREOPERATIVE DIAGNOSES: Bilateral subacute subdural hematomas POSTOPERATIVE DIAGNOSES: Same PROCEDURE: Bilateral bur holes for subdural hematoma ANESTHESIA: General ESTIMATED BLOOD LOSS: Minimal INDICATION FOR PROCEDURE: Mr. June is a 77-year-old gentleman who takes Coumadin for A-fib who presented from an outside hospital with bilateral subacute subdural hematomas with some mass effect on both cerebral hemispheres. Risks and benefits of bilateral bur holes were discussed with his son, they wish to proceed. DESCRIPTION OF PROCEDURE: Patient was brought to the operative room general endotracheal esthesia was induced. He is then supine on operative table his head rested on a horseshoe. Both sides of his head and previous been marked they were shaved appropriately proper place for incisions were drawn and he was prepped and draped in the normal sterile fashion. After appropriate timeout identifying the patient, the type surgery site of surgery point 5% Marcaine with epinephrine was instilled into all 4 future incisions. Skin incision was started on the right. Mastoid retractors were used to hold both incisions open platform worker was used to create a bur hole in each incision. The dura was coagulated good hemostasis obtained. Then the dura was opened with 15 blade and chronic subdural blood came rushing out of the anterior bur hole and subacute subdural blood came out of the posterior bur hole. There was thorough irrigation through the bur holes until the irrigation consistently returned clear. A subdural drain was placed from the posterior bur hole towards the anterior bur hole. Then the posterior bur hole was closed with a bur hole cover followed by galeal 2-0 Vicryl sutures and oswaldo on the skin. The anterior bur hole was then irrigated full of saline and closed with a bur hole cover galeal 2-0 Vicryl sutures with oswaldo on the skin. 2-0 Vicryl was used to sew the CLIFF drain in place. Then the procedure was repeated on the left side with 2 incisions platform worker make a bur hole in each incision the dura was coagulated and opened and again chronic and subdural blood came out of both bur holes it was irrigated till it was consistently returning clear. A subdural drain was placed posteriorly towards the anterior bur hole again the posterior bur hole was closed first followed by the anterior bur hole after was irrigated full of saline. Sterile dressings were placed he was extubated taken back to the ICU in stable fashion. There is no neurosurgical resident available to assist the case, the nurse practitioner assist to provide suction retraction assistance with opening and closing allow the case to be performed safely. Care Managment Initial Assessment Date: 01/08/2023 Patient Name: Ada June : 1945 Patient Information Source of Information: (chart review) Cognition/Language: Impaired Permission given to speak with patient quality assurance representative/caregiver as indicated: Confirmation of Payer with patient/family: Yes Payer Name: [employer]: Confirmation of Primary Care Physician: Confirmed PCP Name: Shannon Seen in last 2 years?: Yes Primary Caregiver: Self If assistance needed, confirmed caregiver ready, willing and able to care for patient at discharge: Yes Confirmed with: family Living Arrangements Current Residence: Private Residence Number of Floors Number of Entry Steps: Bed/Bath Levels: Facility: Facility Name: Plan to Return: No Lives with: Alone Support Systems: Family members Activities of Daily Living Ambulation: Independent Bathing/Dressing: Independent Elimination/Continence/Toileting: Independent Feeding: Independent Who Assists with Activities of Daily Living: Instrumental Activities of Daily Living Prescription Coverage: Yes Pharmacy Used: Medication Management: Transportation/Shopping: Assistance Provider Transportation/Shopping Assistance Provider Name: family Transportation Mode: Needs Assistance with Transportation at Discharge: Meal Preparation: Independent Laundry/Cleaning: Independent Finances/Bill Paying: Independent Communication: Independent Types of Care Services/Equipment Utilized Care Services: Dialysis Type: Durable Medical Equipment: Patient's Goal/Discharge Plan Patient expects to be discharged to: rehab Discharge Planning Actions: Continue to follow Patient's Choice Rights and [employer] and Collaborative Relationships Disclosed as Indicated for Post-Acute Care: NA Interdisciplinary Team Engagement: PT/OT, Palliative Care, Geriatric Assessment Social Work Referral for: Additional Information: Patient admitted T2, found down SDH. Neurosurgery following plans for surgery today for audie holes. PT/OT when appropraite to assist with dc planning. Will follow. Mona Terry RN Problem: Knowledge Deficit Goal: Patient/family/caregiver demonstrates understanding of disease process, treatment plan, medications, and discharge instructions Outcome: Progressing Problem: Potential for Falls Goal: I will remain free of falls Outcome: Progressing documented in this encounter [facility] 01-15-2023 Note Formatting of this n ote might be different from the original. Patient Choice Patient Name: ADA JUNE Date of : 1945 All Providers Sent Referral Name: [facility] Address: [address] [place] [id number] [employer] [facility] [employer] 01-15-2023 Note Formatting of this n ote might be different from the original. Patient Choice Patient Name: ADA JUNE Date of : 1945 All Providers Sent Referral Name: [facility] Address: [address] [place] [address] [employer] [facility] [employer] 01-15-2023 Note Formatting of this n ote might be different from the original. Notified patient at bedside of pending dc and cherry picker operator to to [facility]. Permission given to call son Guilherme to notify. Family Communication Number Called: [phone] Name of Designated Family Senior Contract Specialist: Guilherme Relationship to Patient: son Phone Call Outcome: I spoke with the individual listed above. Family Senior Contract Specialist Updated on the Following: Updated on dc to [facility] and cherry picker operator time. [employer] [facility] [employer] 01-15-2023 Note Formatting of this n ote might be different from the original. Notified patient at bedside of pending dc and cherry picker operator to to [facility]. Permission given to call son Guilherme to notify. Family Communication Number Called: [phone] Name of Designated Family Senior Contract Specialist: Guilherme Relationship to Patient: son Phone Call Outcome: I spoke with the individual listed above. Family Senior Contract Specialist Updated on the Following: Updated on dc to [facility] and cherry picker operator time. [employer] [facility] [employer] 01-15-2023 Note Care Management Prog ress Note Transport set for noon cherry picker operator to [facility]. Will call son this am notify of approval and dc time. Discharge Milestones and Delays Expected Date/Time: 01/15/[address] discharge order Complete med reconciliation Case mgmt discharge readiness Clinical Stability Diagnsotic Workup Expected Discharge History Expected Date/Time Set By Reviewed At 01/15/2023 Midday Mona Terry RN 01/15/2023 5:28 AM 01/14/2023 Mona Terry RN 01/14/2023 11:39 AM 01/15/2023 Rosalba Jones RN 01/13/2023 10:[address] [facility] 01/11/2023 Tamra Callejas RN 01/10/2023 9:56 AM 01/10/2023 Mona Terry RN 01/10/2023 5:21 AM 01/13/2023 Mona Terry RN 01/09/2023 6:50 AM 01/13/2023 Mona Terry RN 01/08/2023 9:13 AM 01/09/2023 Bashir Celeste DO 01/06/2023 10:26 PM Length of Stay (Days): 9 GMLOS: 6.6 [facility] 01-15-2023 Note Formatting of this n ote is different from the original. Images from the original note were not included. Care Management Progress Note Transport set for noon cherry picker operator to [facility]. Will call son this am notify of approval and dc time. Discharge Milestones and Delays Expected Date/Time: 01/15/[address] discharge order Complete med reconciliation Case mgmt discharge readiness Clinical Stability Diagnsotic Workup Expected Discharge History Expected Date/Time Set By Reviewed At 01/15/2023 Midday Mona Terry RN 01/15/2023 5:28 AM 01/14/2023 Mona Terry RN 01/14/2023 11:39 AM 01/15/2023 Rosalba Jones RN 01/13/2023 10:29 AM [facility] 01/11/2023 Tamra Callejas RN 01/10/2023 9:56 AM 01/10/2023 Mona Terry RN 01/10/2023 5:21 AM 01/13/2023 Mona Terry RN 01/09/2023 6:50 AM 01/13/2023 Mona Terry RN 01/08/2023 9:13 AM 01/09/2023 Bashir Celeste, DO 01/06/2023 10:26 PM Length of Stay (Days): 9 GMLOS: 6.6 [facility] 01-15-2023 Note Formatting of this n ote is different from the original. Images from the original note were not included. Care Management Progress Note Transport set for noon cherry picker operator to [facility]. Will call son this am notify of approval and dc time. Discharge Milestones and Delays Expected Date/Time: 01/15/[address] discharge order Complete med reconciliation Case mgmt discharge readiness Clinical Stability Diagnsotic Workup Expected Discharge History Expected Date/Time Set By Reviewed At 01/15/2023 Midday Mona Terry RN 01/15/2023 5:28 AM 01/14/2023 Mona Terry RN 01/14/2023 11:39 AM 01/15/2023 Rosalba Jones RN 01/13/2023 10:[address] [facility] 01/11/2023 Tamra Callejas RN 01/10/2023 9:56 AM 01/10/2023 Mona Terry RN 01/10/2023 5:21 AM 01/13/2023 Mona Terry RN 01/09/2023 6:50 AM 01/13/2023 Mona Terry RN 01/08/2023 9:13 AM 01/09/2023 Bashir Celeste DO 01/06/2023 10:26 PM Length of Stay (Days): 9 GMLOS: 6.6 [facility] 01-14-2023 Plan of care note The patient is Moderately Stable - Low risk of patient condition declining or worsening The patient's goals for the shift include Remain safe The clinical goals for the shift include stable neuro status Over the shift, the patient did make progress toward the following goals. Barriers to progression include n/a. Recommendations to address these barriers include n/a. [facility] 01-14-2023 Note Formatting of this n ote might be different from the original. Auth received for admission to [facility]. [id number]. Called admissions left message requesting return call. [facility] 01-14-2023 Note Formatting of this n ote might be different from the original. Auth received for admission to [facility]. [id number]. Called admissions left message requesting return call. [facility] 01-14-2023 Note Care Management Prog ress Note Requested auth to be submitted for [facility]. Awaiting approval. CM MATEO completed, and ambulance sheet at desk. Discharge Milestones and Delays Expected Date/Time: 01/14/[address] discharge order Complete med reconciliation Case mgmt discharge readiness Clinical Stability Diagnsotic Workup Expected Discharge History Expected Date/Time Set By Reviewed At 01/14/2023 Mona Terry RN 01/14/2023 11:39 AM 01/15/2023 Rosalba Jones RN 01/13/2023 10:[address] [facility] 01/11/2023 Tamra Callejas RN 01/10/2023 9:56 AM 01/10/2023 Mona Terry RN 01/10/2023 5:21 AM 01/13/2023 Mona Terry RN 01/09/2023 6:50 AM 01/13/2023 Mona Terry RN 01/08/2023 9:13 AM 01/09/2023 Bashir Celeste DO 01/06/2023 10:26 PM Length of Stay (Days): 8 GMLOS: 6.6 [facility] 01-14-2023 Note Formatting of this n ote is different from the original. Images from the original note were not included. Care Management Progress Note Requested auth to be submitted for [facility]. Awaiting approval. CM MATEO completed, and ambulance sheet at desk. Discharge Milestones and Delays Expected Date/Time: 01/14/[address] discharge order Complete med reconciliation Case mgmt discharge readiness Clinical Stability Diagnsotic Workup Expected Discharge History Expected Date/Time Set By Reviewed At 01/14/2023 Mona Terry RN 01/14/2023 11:39 AM 01/15/2023 Rosalba Jones RN 01/13/2023 10:[address] [facility] 01/11/2023 Tmara Callejas RN 01/10/2023 9:56 AM 01/10/2023 Mona Terry RN 01/10/2023 5:21 AM 01/13/2023 Mona Terry RN 01/09/2023 6:50 AM 01/13/2023 Mona Terry RN 01/08/2023 9:13 AM 01/09/2023 Bashir Celeste DO 01/06/2023 10:26 PM Length of Stay (Days): 8 GMLOS: 6.6 [facility] 01-14-2023 Note Formatting of this n ote is different from the original. Images from the original note were not included. Care Management Progress Note [facility] Awaiting approval. CM MATEO completed, and ambulance sheet at desk. Discharge Milestones and Delays Expected Date/Time: 01/14/[address] discharge order Complete med reconciliation Case mgmt discharge readiness Clinical Stability Diagnsotic Workup Expected Discharge History Expected Date/Time Set By Reviewed At 01/14/2023 Mona Terry RN 01/14/2023 11:39 AM 01/15/2023 Rosalba Jones RN 01/13/2023 10:[address] [facility] 01/11/2023 Tamra Callejas RN 01/10/2023 9:56 AM 01/10/2023 Mona Terry RN 01/10/2023 5:21 AM 01/13/2023 Mona Terry RN 01/09/2023 6:50 AM 01/13/2023 Mona Terry RN 01/08/2023 9:13 AM 01/09/2023 Bashir Celeste DO 01/06/2023 10:26 PM Length of Stay (Days): 8 GMLOS: 6.6 [facility] 01-13-2023 Note Care Management Prog ress Note Auth was started on 01/10/2023 to go to [facility], they were requesting updated PT/OT/ST notes. [facility] was tasked to send. CM to await auth. Discharge Milestones and Delays Expected Date/Time: 01/15/[address] discharge order Complete med reconciliation Case mgmt discharge readiness Clinical Stability Diagnsotic Workup Expected Discharge History Expected Date/Time Set By Reviewed At 01/15/2023 Rosalba Jones RN 01/13/2023 10:[address] [facility] 01/11/2023 Tamra Callejas RN 01/10/2023 9:56 AM 01/10/2023 Mona Terry RN 01/10/2023 5:21 AM 01/13/2023 Mona Terry RN 01/09/2023 6:50 AM 01/13/2023 Mona Terry RN 01/08/2023 9:13 AM 01/09/2023 Bashir Celeste DO 01/06/2023 10:26 PM Length of Stay (Days): 7 GMLOS: 6.6 [facility] 01-13-2023 History of Present illness Narrative Nutrition Assessment Type and Reason for Visit: Reassess Nutrition Recommendations/Plan: Continue Easy to Chew Diet, as deemed safe and appropriate by [employer] SEQUE[employer]ATION PLANT ENGINEER Encourage patient to participate in room service and order well balanced meals Please record % meals consumed in flow-sheet for most accurate nutrient intake assessment. Obtain actual standing scale weight as able for most accurate anthropometric data RDN to continue to monitor weekly: fluid accumulation, weight, skin integrity, trends in lab values, tolerance of diet and ability to meet > 75% estimated needs via PO, improvement in clinical status, discharge planning. Malnutrition Assessment: Malnutrition Status: At risk for malnutrition (Comment) (monitor PO intake and ability to meet needs) Context: Acute Illness Findings of the 6 clinical characteristics of malnutrition: Energy Intake: Mild decrease in energy intake (Comment) (inadeqaute intake x3 days d/t NPO diet order, PO 100% tolerating diet well\) Weight Loss: No significant weight loss Body Fat Loss: Unable to assess Muscle Mass Loss: Unable to assess (observed severe muscle loss on upper extremities, unable to assess if r/t sarcopenia vs malnutrition) Fluid Accumulation: No significant fluid accumulation 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 s/p evacuation of bilateral SDH on 01/07. Post-op has remained stable, transferred from ICU to [facility] on 01/09/23. Met [employer] SE[employer] ENGINEER goals, continues on Easy to Chew diet. Pyschaitry consulted due to family concerns regarding patient ability to make decisions and care for himself, per their assessment: does appear to retain capacity for medical decision-making but is in agreement it would be in best interest to designate (son, daughter) HCPOA in the event one is needed during current admission and/or in the future . Resting in chair at bedside during assessment. Per patient appetite has been intact and eating well. Consumed two scrambled eggs, cottage cheese, and oatmeal for breakfast this morning. Denies: pain, nausea, GI distress, difficulty swallowing. PO 100%. Prior to admit, feels he was doing well at home. Eating well, does endorse a hundred pound weight loss since my open heart surgery on July 27, 2021 . Per EMR review, 212# 07/11/21, and 171.7# in January 2022. Patient states his weight has been stable ~165#, weight loss ~15% over the past 18 months. Deferred NFPE at this time, observed severe sites of muscle loss, on upper body- cannot assess if r/t sarcopenia vs malnutrition as he endorses a good appetite. Estimated Daily Nutrient Needs: Energy Requirements Based On: Kcal/kg Weight Used for Energy Requirements: Admission Weight for Energy Calculation (kg): 77.9 kg Total Energy Requirements (kcals/day): 8780-2159 kcal/day (25-30 kcal/kg) Weight Used for Protein Requirements: Admission Weight in Kg Used for Protein Requirements: 77.9 kg Estimated Total Protein (g/day): 94-101 gm protein/day (1.2-1.3 gm protein/kg) Estimated Daily Total Fluid (ml/day): per MD Nutrition Related Findings: +I/O balance. PO 100% +bm and bowel sounds. Meds and labs reviewed. Tristen score=20 +trace BUE and +nonpitting BLE edema noted. Wound Type: Surgical Incision (bilateral scalp) Current Nutrition Therapies: Adult diet Easy to Chew Current Oral Intake Average Meal Intake: 76-100% Average Supplements Intake: None Ordered Anthropometric Measures: Height: 190.5 cm (6' 3 ) Current Body Weight: 81.6 kg (179 lb 14.3 oz) Admission Body Weight: 76 kg (167 lb 8.8 oz) Usual Body Weight: 91.2 kg (201 lb) (per EPIC: 12/28- 174#, 12/02- 173.6#, 08/01- 163#, 06/22- 194#, 06/14- 200#, 01/23/22- 201#, 12/03/21- 180.7#) % Weight Change (Calculated): -10.5 [place] Body Weight (lbs) (Calculated): 196 lbs [place] Body Weight (Kg) (Calculated): 89 kg % [place] Body Weight (Calculated): 91.8 % BMI (kg/m2) (Calculated): 22.5 Weight Adjustment For: No Adjustment BMI Categories: Normal Weight (BMI 22.0 to 24.9) age over 65 Nutrition Diagnosis: Increased nutrient needs related to cognitive or neurological impairment, acute injury/trauma as evidenced by (acute post op period, s/p evacuation of bilateral SDH on 01/07) Nutrition Interventions: Nutrition Education/Counseling: Education not indicated Coordination of Nutrition Care: Continue to monitor while inpatient Plan of Care discussed with: patient Goals: Previous Goal Met: Progressing toward Goal(s) Goals: prior to discharge, PO intake 75% or greater Nutrition Monitoring and Evaluation: Behavioral-Environmental Outcomes: None Identified Food/Nutrient Intake Outcomes: Food and Nutrient Intake Physical Signs/Symptoms Outcomes: Biochemical Data, Chewing or Swallowing, GI Status, Nausea or Vomiting, Skin, Weight, Nutrition Focused Physical Findings, Meal Time Behavior, Hemodynamic Status, Fluid Status or Edema Discharge Planning: Too soon to determine Shara Gar RDN, LDN Contact: *[phone] Images from the original note were not included. PHYSICAL THERAPY [facility] Treatment Note Name/MRN: Ada June ([id number]) Date of : 1945 Age: 77 y.o. Room/Bed: N3-360/N3-360 A Discharge Recommendation: SNF Equipment Needed: TBD at next level of care, already owns a rollator Prior Level of Function ADL Assistance: Independent Ambulation Assistance: Independent Transfer Assistance: Independent Assessment Pt has improved with transfers and was able to ambulate today but displays generalized weakness and requires min assist with all functional mobility. Not safe to be home alone. Recommend inpt PT at discharge. Subjective Pt supine in bed with HOB up. Agreeable to PT. Pads soaked in urine on bed due to urinal getting too full while using it in bed. Pain: Pt denies any current pain. Medical Precautions: No active isolations Proper PPE donned/doffed in accordance with facility standards. Fall Risk: Shin Fall Risk Score: 70 (High Risk) Precautions/Restrictions: Seizure Precautions Overall Cognitive Status: WNL Overall Orientation Status: Oriented to Place and Oriented to Person Family/Caregiver Present: none Objective Ambulation Ambulation 1 Assistive device(s) used: front wheeled walker Assist level: Min Assist Distance (ft): 40 ft x 2 Quality of gait: instability through all phases, flexed posture Transfers/Mobility Sit to stand: Min Assist Stand to sit: Min Assist Cues for hand placement Device(s) used: front wheeled walker Exercises Seated therapeutic exercises: ankle pumps, marching, LAQ, hip adduction with pillow squeeze, hip abduction with manual resistance, all x 10 reps. Bed Mobility Supine to sit: Min Assist Scooting: SBA HOB elevated Plan Continue acute PT per plan of care. Safety/Education Safety Safety Devices in place: All fall risk precautions in place, call light within reach, left in chair, chair alarm in place, and gait belt Restraints: No Education Education Given To: patient Education Provided: Gait Training, Transfer Training, Discharge Recommendations, and Benefits of Increasing Activity Education Method: Verbal Barriers to Learning: None Education Outcome: Continued Education Needed Outcome Measures AM-PAC AM-PAC Inpatient Mobility Raw Score (No Stairs) : 16 [facility] Score: Walked 25 ft or more (i.e. walked outside of room) Goals Patient Stated Goal: To get better Encounter Problems Encounter Problems (Active) Balance Patient will maintain dynamic standing balance for 15 minutes with SBA in order to demonstrate decreased risk of falling. (Progressing) Start: 01/08/23 Expected End: 02/05/23 Mobility Patient will ambulate 50 feet with SBA and least restrictive device in order to improve safety and independence with mobility. (Progressing) Start: 01/08/23 Expected End: 02/05/23 Patient will ascend and descend 3 stairs with least restrictive device and SBA in order to safely negotiate home. (Not Addressed) Start: 01/08/23 Expected End: 02/05/23 Pain - Adult Transfers Patient will perform bed mobility with SBA in order to improve independence and prepare for out of bed mobility. (Progressing) Start: 01/08/23 Expected End: 02/05/23 Patient will complete sit to stand transfer with SBA to least restrictive device in order to improve safety and prepare for out of bed mobility. (Progressing) Start: 01/08/23 Expected End: 02/05/23 Therapy Time Individual Co-treatment Time In 0943 Time Out 1009 Minutes 26 Timed Code Treatment Minutes: 26 Minutes (gait, TP) Hattie Rodas PTA Images from the original note were not included. Speech-Language Pathology SPEECH LANGUAGE PATHOLOGY [facility] [facility] Dysphagia Treatment Note Patient Name: Ada June Evaluation Date: 01/13/2023 Date of : 1945 Admission Date: 01/06/2023 10:07 PM Age: 77 y.o. Room/Bed: N3-360/N3-360 A Subjective Patient alert and cooperative. Seen upright in bed. Answers all basic questions with clear, strong vocal quality. Follows all basic commands. No visitors at bedside. Spoke with RNYolanda, who cleared pt for treatment. Current Diet: Dietary Orders (From admission, onward) Start Ordered 01/10/23 1056 Adult diet Easy to Chew Diet effective now Question: Diet type Answer: Easy to Chew 01/10/23 1056 Aspiration Precautions: - Upright positioning for all PO intake - Small bites/sips - Alternate solid and liquids Oxygen: Oxygen Therapy: None (Room air) Pain: RN managing pain. PPE Worn: gloves Objective & Assessment Activity 1: Assess diet tolerance The patient tolerated easy to chew solids/thin liquids with independence. Adequate mastication, full bolus clearance, and no overt s/s of aspiration/penetration. Vocal quality remained clear. Discussed potential to upgrade to regular, but per patient request to remain with easy to chew due to dentition. Plan & Recommendations Plan: Patient has achieved all acute care [employer] ENGINEER goals. Speech therapy to sign off at this time. D/C Recommendations: No follow up therapy recommended post discharge Education Education Given: swallowing strategies, diet recommendations Given To: patient Response: verbalizes understanding Goals Patient Stated Goal: To get home Encounter Problems Encounter Problems (Resolved) Swallowing Patient will participate in repeat clinical dysphagia evaluation (Completed) Start: 01/08/23 Expected End: 01/22/23 Resolved: 01/09/23 Swallowing Patient will tolerate the least restrictive diet consistency to allow for safe consumption of daily meals (Completed) Start: 01/09/23 Expected End: 01/23/23 Resolved: 01/13/23 Patient will tolerate recommended food and liquid consistencies without clinical signs and symptoms of aspirations (Completed) Start: 01/09/23 Expected End: 01/23/23 Resolved: 01/13/23 Therapy Time [employer]INEER Individual Minutes Time In: 0820 Time Out: 0840 Minutes: 20 KHUSHBOO KinseyCARBON SEQUESTRATION PLANT ENGINEER [facility] Geriatric Medicine Inpatient Consult Service Admission Date: 01/06/2023 Assessment Principal Problem: SDH (subdural hematoma) (HCC) Active Problems: Acute metabolic encephalopathy Fall Cognitive impairment Debility Coronary artery disease involving [place] coronary artery of [place] heart Longstanding persistent atrial fibrillation (HCC) 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 Delirium Plan Acute Metabolic Encephalopathy -Improving on conversation this morning -Etiology likely subdural hematoma, trauma, hospital environment -Encourage PO intake, time up in chair, family visits, supervised ambulation, and sleep hygiene -If agitated, assess for and consider treating for pain -QTc= 457 -Recommend continuing scheduled Seroquel 50 mg nightly -Recommend continuing Seroquel 12.5 mg PRN BID first line for agitation is patient is danger to self/others/treatment- Has not required PRN medication for agitation -Recommend haldol 0.5 mg IM every 8 hours second line for agitation if patient is unable to tolerate oral medications. Continue to monitor Qtc due to risk of Qtc prolongation. -Cascade PRN Seroquel or Haldol for ONLY if danger to self/others/treatment -Continue scheduled melatonin at HS -Monitor for constipation/urinary retention - last BM 01/12/23 -Possible medication contributions: decadron (one dose received in OR) -Per psychiatry note, patient appears to retain capacity for medical decision-making at this time, patient agreeable to designating a HCPOA while able should one be needed during hospitalization or in the future . -Per conversation this morning, patient does have medical decision making capacity to choose disposition on discharge. He verbalizes he is agreeable to go to SNF ([facility]) on discharge. If patient should change his mind and decline SNF without a significant improvement in function, then would recommend re-evaluation of capacity. Declining functional status Falls -Related to physical deconditioning, diabetes, heart disease, cognitive impairment -Continue PT/OT as able while inpatient -Palliative care following for ongoing goals of care discussion -Vitamin D 52 -Anticipate d/c to SNF for ongoing daily PT/OT , likely [facility] SNF Cognitive deficits -+ history of cognitive decline at home reported per son since heart surgery a year ago in July. + history of decline in IADL's. Reported difficulty with medications, concern for scamming -TSH WNL, B12 WNL -Head imaging - CT head (01/08/23): Impression shows Interval postsurgical changes, with placement of surgical drains and large amount of pneumocephalus -History concerning for baseline dementia -Recommend outpatient follow up at [facility] for more in depth cognitive evaluation when in usual state of health. -Son discussed with RN concerns over the past year of his father sending out large quantities of money to unknown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 3.5 - 5.1 mmol/L CHLORIDE 100 98 - 107 mmol/L CARBON DIOXIDE 24 22 - 30 mmol/L UREA NITROGEN 29 (H) 9 - 20 mg/dL CREATININE 0.78 0.66 - 1.25 mg/dL GLUCOSE 104 (H) 70 - 100 mg/dL CALCIUM 8.7 8.4 - 10.4 mg/dL ANION GAP 9 3 - 13 mmol/L eGFR >90.0 >60.0 mL/min/1.73m*2 Lab Results Component Value Date TSH 0.474 01/08/2023 Lab Results Component Value Date [id number] 425 01/08/2023 Lab Results Component Value Date VITD25 52 01/08/2023 Reviewed: allergies, previous encounters, social history, imaging, active problem lists, medications, and labs Images from the original note were not included. Daily Trauma Progress Note Resident 01/09/2023 6:22 AM Admit Date: 01/06/2023 Post Trauma Day 01/06/2023 Fall Mechanical HPI: 77 yo M s/p fall from standing on coumadin. Fall was unwitnessed, patients son found him in the bathtub after. Patient was noted by family to have AMS over the last couple days. Patient went to OR with NSGY 01/07 for evacuation of bilateral SDH and returned to the SICU after the procedure. 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 PROCEDURES: - Bilateral craniotomy and evacuation of subdural hematoma with NSGY CHIEF COMPLAINT: Mech fall, delirium PREVIOUS 24 HOUR EVENTS: - Initial hypoactive delirium became more agitated yesterday, patient placed in soft restraints - Repeat CT head stable Consults: IP CONSULT TO NEUROSURGERY IP CONSULT TO PALLIATIVE CARE IP CONSULT TO GERIATRICS IP CONSULT TO CARDIOLOGY IP CONSULT TO SOCIAL WORK MEDICATIONS: Current Facility-Administered Medications: albuterol (2.5 MG/3ML) 0.083% nebulizer solution 2.5 mg, 2.5 mg, Nebulization, q2h PRN, Sonia Garces, OTILIA - FLOOR SWEEPER amLODIPine (Norvasc) tablet 5 mg, 5 mg, Oral, Daily, Narinder Lane MD, 5 mg at 01/08/23 1629 atorvastatin (Lipitor) tablet 20 mg, 20 mg, Oral, Daily, Narinder Lane MD, 20 mg at 01/08/23 2132 haloperidol lactate (Haldol) injection 0.5 mg, 0.5 mg, IntraMUSCular, q6h PRN, Martina Rausch APRN - FLOOR SWEEPER hydrALAZINE (Apresoline) injection 10 mg, 10 mg, IntraVENous, q2h PRN, Bashir C Gemma, DO HYDROmorphone (Dilaudid) injection 0.25 mg, 0.25 mg, IntraVENous, q3h PRN, Sonia Kangsingrid TOWERMAN - FLOOR SWEEPER labetalol (Normodyne,Trandate) injection 20 mg, 20 mg, IntraVENous, q2h PRN, Bashir Celeste, melatonin tablet 3 mg, 3 mg, Oral, Nightly, Martina Rausch APRN - FLOOR SWEEPER, 3 mg at 01/08/232131 ondansetron ODT (Zofran-ODT) disintegrating tablet 4 mg, 4 mg, Oral, q8h PRN OR ondansetron (Zofran) injection 4 mg, 4 mg, IntraVENous, q6h PRN, Sonia Kangsz, TOWERMAN - FLOOR SWEEPER pantoprazole (ProtoNix) EC tablet 40 mg, 40 mg, Oral, Nightly OR pantoprazole (ProtoNix) 40 mg in sodium chloride (PF) 0.9 % 10 mL injection, 40 mg, IntraVENous, Nightly, Sonia Salazar Orosz, TOWERMAN - FLOOR SWEEPER, 40 mg at 01/08/232131 pantoprazole (ProtoNix) EC tablet 40 mg, 40 mg, Oral, [facility], Narinder Lane MD polyethylene glycol (PEG) 3350 (Miralax) packet 17 g, 17 g, Oral, Daily PRN, Sonia Kangsingrid TOWERMAN - FLOOR SWEEPER polyethylene glycol (PEG) 3350 (Miralax) packet 17 g, 17 g, Oral, Daily, Lesley Asencio MD QUEtiapine (SEROquel) tablet 12.5 mg, 12.5 mg, Oral, BID PRN, Martina Rausch APRN - FLOOR SWEEPER QUEtiapine (SEROquel) tablet 50 mg, 50 mg, Oral, Nightly, Sri Lugo APRN - FLOOR SWEEPER, 50 mg at 01/08/232131 sennosides (Senokot) tablet 8.6 mg, 1 tablet, Oral, Nightly, Lesley Asencio MD, 8.6 mg at 01/08/232131 sodium chloride 0.9 % infusion, 5-250 mL/hr, IntraVENous, PRN, Sonia Garces, OTILIA - FLOOR SWEEPER spironolactone (Aldactone) tablet 25 mg, 25 mg, Oral, Daily, Narinder Lane MD, 25 mg at 01/08/23 1834 tamsulosin (Flomax) 24 hr capsule 0.4 mg, 0.4 mg, Oral, Daily, OTILIA Carroll CNP ARE THERE PERTINENT UPDATES TO PAST,FAMILY, OR SOCIAL HISTORY?: No Subjective: Patient doing well this morning, seems to be less agitated and more calm. Per nursing he got good rest last night. AO x3, able to follow commands and answer questions appropriately. Patient was informed of plans for today including repeat evaluation and swallow study, he states he will give his best effort. Review of Systems Constitutional: Negative. HENT: Negative. Dressings clean/dry/intact over surgical sites Eyes: Negative. Respiratory: Negative. Cardiovascular: Negative. Gastrointestinal: Negative. Endocrine: Negative. Genitourinary: Negative. Musculoskeletal: Negative. Skin: Negative. Neurological: Negative for dizziness, speech difficulty, light-headedness, numbness and headaches. Objective: Patient Vitals for the past 24 hrs: BP Temp Temp src Pulse Resp SpO2 Height 01/09/23 0500 (!) 115/98 -- -- 93 17 100 % -- 01/09/23 0400 137/71 36.4 C (97.6 F) Temporal 92 16 99 % -- 01/09/23 0000 117/80 36.6 C (97.9 F) Temporal 82 18 98 % -- 01/08/23 2300 112/58 -- -- 98 15 99 % -- 01/08/23 2202 (!) 113/45 -- -- 97 16 99 % -- 01/08/23 2200 96/59 -- -- 77 15 100 % -- 01/08/23 2100 (!) 143/76 -- -- 84 15 98 % -- 01/08/23 2000 (!) 148/62 37 C (98.6 F) Temporal 82 17 100 % -- 01/08/23 1900 (!) 148/65 -- -- 69 15 98 % -- 01/08/23 1800 133/60 -- -- 86 21 96 % -- 01/08/23 1700 (!) 150/62 -- -- 85 13 97 % -- 01/08/23 1600 (!) 146/75 36.7 C (98.1 F) Temporal 70 21 95 % -- 01/08/23 1500 125/71 -- -- 75 15 92 % -- 01/08/23 1400 (!) 143/105 -- -- 75 21 93 % -- 01/08/23 1300 (!) 150/67 -- -- 67 25 92 % -- 01/08/23 1200 (!) 147/61 36.7 C (98 F) Temporal 85 26 93 % -- 01/08/23 1100 130/71 -- -- 73 15 96 % -- 01/08/23 1000 131/60 -- -- 77 18 97 % -- 01/08/23 0900 126/59 -- -- 73 17 95 % -- 01/08/23 0800 (!) 140/42 -- -- 71 16 94 % -- 01/08/23 0752 -- -- -- -- -- -- 1.905 m (6' 3 ) 01/08/23 0700 (!) 147/73 -- -- 56 16 -- -- Intake/Output Summary (Last 24 hours) at 01/09/2023 0622 Last data filed at 01/09/2023 0500 Gross per 24 hour Intake 1616 ml Output 474 ml Net 1142 ml I/O this shift: In: 80 [NG/GT:80] Out: 150 [Urine:150] Last BM: Yesterday Diet: Dietary Orders (From admission, onward) Start Ordered 01/08/23 172 Diet, tube feeding no tray Nasogastric; Glucerna 1.5 Bret; Continuous; Yes; 10; Q 4 Hours; 10; 60; 150; Q 4 Hours Diet effective now Question Answer Comment Route: Nasogastric Formula: Glucerna 1.5 Bret Delivery Method: Continuous Continuous Advance Tube Feeding? Yes Advancement Volume (mL/hr) 10 Advancement Frequency: Q 4 Hours Continuous Initial Rate (Recommended mL/hr) 10 Continuous Goal Rate (Recommended mL/hr) 60 Flush volume (mL): 150 Flush frequency: Q 4 Hours 01/08/23 1728 CVP: No Chest Tubes: R: No L: No PHYSICAL: Physical Exam Constitutional: General: He is not in acute distress. Appearance: Normal appearance. HENT: Head: Comments: Dressings intact over surgical incisions. No active bleeding or drainage, subdural drains in place functioning well. Right Ear: External ear normal. Left Ear: External ear normal. Eyes: Extraocular Movements: Extraocular movements intact. Pupils: Pupils are equal, round, and reactive to light. Cardiovascular: Rate and Rhythm: Normal rate. Rhythm irregular. Pulses: Normal pulses. Pulmonary: Effort: Pulmonary effort is normal. No respiratory distress. Abdominal: General: Abdomen is flat. Palpations: Abdomen is soft. Musculoskeletal: General: Normal range of motion. Cervical back: Normal range of motion and neck supple. Skin: General: Skin is warm and dry. Neurological: General: No focal deficit present. Mental Status: He is alert and oriented to person, place, and time. Mental status is at baseline. Sutures or oswaldo? Yes O2: / / / Data Review Data CBC with Differential: Lab Results Component Value Date WBC 8.9 01/09/2023 RBC 3.68 (L) 01/09/2023 HGB 10.9 (L) 01/09/2023 HCT 32.1 (L) 01/09/2023 PLT 174 01/09/2023 CMP: Lab Results Component Value Date NA 132 (L) 01/09/2023 K 4.0 01/09/2023 CL 100 01/09/2023 CO2 24 01/09/2023 BUN 29 (H) 01/09/2023 CREATININE 0.78 01/09/2023 GLUCOSE 104 (H) 01/09/2023 CALCIUM 8.7 01/09/2023 BMP: Hepatic Function Panel:Ionized Calcium: No components found for: IONCA Magnesium: Lab Results Component Value Date MG 2.0 01/06/2023 Phosphorus: No results found for: PHOS PT/INR: Lab Results Component Value Date PROTIME 13.1 (H) 01/06/2023 INR 1.2 (H) 01/06/2023 PTT: Lab Results Component Value Date APTT 24.1 01/06/2023 [APTT Last 3 Troponin: No results found for: TROPONINI Urine Culture: No components found for: CURINE Blood Culture: No components found for: CBLOOD , CFUNGUSBL Blood Culture from Central Line: No components found for: CBLOODLN Stool Culture: No components found for: CSTOOL Sputum Culture: No components found for: CSPUTUM Sputum Culture for AFB: No components found for: CAFBSM Wound Culture: N/A Radiology: XR chest 1 view Narrative: Patient Name: ADA JUNE : 1945 Exam Date/Time: 01/08/2023 19:49 Procedure: XR CHEST 1 VIEW Ordering Provider: ORTEGA LAURA Reason For Exam: DYSPNEA PORTABLE CHEST: INDICATION: Dyspnea COMPARISON: No previous studies are available for comparison. Obtained at 1947 hours. A single portable AP radiograph of the chest was obtained. The heart is normal in size. The mediastinal silhouette is normal. There are heavy interstitial markings and patchy infiltrative changes. A small left effusion is present. There is no pleural thickening. Arthritic changes of the spine and shoulders are present. An NG tube is noted overlying left upper quadrant. Impression: Patchy bilateral infiltrates and small left effusion. Report Dictated on Electronically Signed By: Quincy Babin DO Electronically Signed Date/Time: 01/08/2023 10:00 PM EST XR abdomen 1 view Patient Name: ADA JUNE : 1945 Exam Date/Time: 01/08/2023 14:33 Procedure: XR ABDOMEN 1 VIEW Ordering Provider: ORTEGA LAURA Reason For Exam: Doboff placement verification EXAM TYPE: XR ABDOMEN 1 VIEW EXAM DATE AND TIME: 01/08/2023 2:33 PM EST INDICATION: 77 years Male with Dobbhoff tube placement COMPARISON: none TECHNIQUE: AP supine radiograph of the abdomen and pelvis was obtained. FINDINGS: Limited as only a portion of the abdomen was included in the [id number]. An enteric tube terminates overlying the gastric body. The visualized bowel loops are normal in caliber. Limited evaluation for free air or air-fluid levels on supine-only imaging. Degenerative changes in the spine. Report Dictated on Electronically Signed By: Bashir Clark MD Electronically Signed Date/Time: 01/08/2023 3:01 PM EST ECG 12 lead Atrial fibrillation Borderline left axis deviation Anterior infarct, old Nonspecific T abnormalities, lateral leads Electronically Signed On 01-08-2023 12:53:32 EST by Shayla Mari CT head wo IV contrast Narrative: Patient Name: ADA JUNE : 1945 [facility]#: [id number] Exam Date/Time: 01/08/2023 05:13 Procedure: CT HEAD WO IV CONTRAST Ordering Provider: GARCES JENNIFER Reason For Exam: Subdural hematoma Examination: CT head Technique: Axial CT images of the head were obtained without IV contrast at 3 mm intervals. Dose reduction was employed with automatic exposure control. Coronal and sagittal reconstructed images were also provided for review. Indication: Subdural hematoma Findings: Comparison: Previous day The patient is status post placement of two intracranial drains on the right and one intracranial drain on the left extending along the anterior left temporal lobe. Large amount of right and left frontal pneumocephalus is present. There are numerous overlying surgical skin oswaldo overlying the drains. No significant midline shift is present. Small hypodensity present within the right lentiform nucleus and left lentiform nucleus, somewhat similar. The ventricles, sulci and cisterns are otherwise unremarkable. There is diffuse calcification of the carotid siphons and distal vertebral arteries. Paranasal sinuses are grossly clear. Mastoid air cells are grossly clear. 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 Has multiple anti-agitation medications ordered - Elevate HOB 30 degrees - Hold anticoagulation, no DVT ppx while drains in place - Neuro checks q4hr - SBP goal <140 - Patient restarted on home amlodipine, has prn meds available - BP well controlled overnight, pt did require prn meds - CARBON SEQUESTRATION PLANT ENGINEER re-eval today, failed yesterday - Palliative consult - Geriatrics consult - Delirium: 12.5 seroquel BID with HS dose via DHT. Has low dose haldol available - Did not require haldol overnight - 3 mg melatonin nightly to be continued at home Cardiovascular - Hemodynamically stable - Home amlodipine, labetalol/hydralazine prn doses increased last night - Telemetry Pulmonary - Standard O2 protocol - IS - Duonebs PRN FEN/GI - Repeat CARBON SEQUESTRATION PLANT ENGINEER eval completed, ok for soft bite sized diets - Dobbhoff removed, will start PO meds and food - Zofran PRN - Daily BMP, CBC, Mg, Phos - No acute issues - Chu in place, will remove tomorrow - Flomax 0.4 mg daily for urinary retention - Monitor I/Os - Goal UOP > 0.5 ml/kg/hr Endocrine - No acute issues Heme - Hgb stable - No transfusions indicated ID - No acute issues - No antibiotics indicated Lines/Devices: - PIV - Subdural drains removed Prophylaxis: DVT: SCDs, start DVT ppx tomorrow per NSGY Has DVT PPX been started? No If no, why? Tomorrow GI: Protonix Pressure Ulcer: Continue to monitor, q2 turns Musculoskeletal: - PT/OT - Up with assistance - All extremities AT Is the patient in restraints?: No Medications Reconciled- Yes [x] NO [] Disposition: Transfer to [facility] [facility] Vishal Lane MD General Surgery Resident PGY-1 01/09/23 6:22 AM This note may have been dictated using [employer] Practice Edition 2.6 and/or [employer] Voice Recognition Feature. The document was proofread; however, unrecognized voice recognition night time nanny errors may be present. 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 I personally discussed the review of systems and interviewed the patient along with performing a physical examination. I reviewed the recent events, imaging, labs, vital signs. In addition, I discussed the patient's condition and treatment options with him/her when possible. I have also reviewed and agree with the past medical, family, and social history unless otherwise noted. All of the patient's questions were answered and family updated when appropriate and possible. A complete review of systems was obtained and is negative except as stated in HPI and/or Subjective Section. -as per Dr. Lane's note -I evaluated patient on 01/09/23 -patient admitted evening of 01/06 with bilateral acute on chronic SDHs Neuro: POD#2 from OR with Neurosurg for [place] hole evacuation of bilateral SDHs, head CT yesterday with expected post-op changes, continue serial neuro checks, subdural drains were removed this AM by Neurosurg...Delirium: much improved today after initiating Seroquel yesterday, low dose PRN haldol also avialable (though has not needed) CV: h/o a-fib on warfarin, appreciate Cards recs, patient does NOT have mechanical valve, continue to hold anticoagulation; avoid hypertension -Pulm: no acute concerns -FENGI: passed Speech eval today for soft & bite-sized, will remove DHT -: chu placed for OR, on Flomax after urinary retention 01/07, will continue chu for today as he has not actually had Floxmax yet given it could not be crushed for previous DHT -Heme: SCDs, continue to hold anticoagulation, Lovenox for DVT prophylaxis may be started tomorrow -ID: no acute concerns -Dispo: okay to transfer out if ICU to 3W/3N, current PT recs are SNF Total Care Time throughout the day today was >= 50 minutes (including chart/data review/analysis, care coordination, and [id number] encounter), and was spent discussing/counseling the patient/family regarding the care plan for Ada June. I examined the patient independently. I reviewed relevant data myself and may have also done so in the context of team rounds. A full chart review was performed. Level of Medical Decision Making: [x]High []Moderate []Low Complexity: [x]Acute or chronic illness/injury posing a threat to life or bodily function without treatment (HIGH) []Chronic illness with severe exacerbation, progression, or side effect of treatment (HIGH) []Chronic illness with mild to moderate exacerbation, progression, or side effect of treatment (MOD) []Previously undiagnosed (new) problem with uncertain prognosis (MOD) []Acute illness with systemic symptoms (MOD) []Acute, complicated injury (MOD) []Multiple stable chronic illnesses (MOD) Risk: [x]Parental controlled substances (HIGH) []Decision not to resuscitate or to de-escalate care because of poor prognosis (HIGH) []Decision regarding major surgery with identified patient or procedure risk factors (HIGH) []Decision regarding emergency surgery (HIGH) [x]Drug or treatment/therapy requiring intensive monitoring (HIGH) []Prescription drug management (MOD) []Decision regarding surgery with identified patient or procedure risk factors (MOD) []Diagnosis or treatment significantly limited by social determinants of health (MOD) Personally Reviewed/Independently interpreted patient's: [x]Epic notes [x]Radiology studies [x]Labs []EKG []Ordering tests []Other Discussed/ With: [x]Patient/Family [x]RN [x]Consultants []Primary Team [x]SW/TCC []Other Time was spent: -Reviewing the medical record, including recent tests and results -Ordering prescription medications/tests and procedures -Communicating results to the patient/family/caregiver -Counseling/educating the patient/family/caregiver -Documenting clinical information in the patient's electronic record -Co-ordination of care for the patient -Performing a medically appropriate exam and evaluation Eleazar Arenas MD, FACS Trauma, Surgical Critical Care, & Acute Care Surgery Department of Surgery [facility] Pager: [phone] ~~~~~~~~~~~~~~~~~~~~~~~~~~~~~~~~~ ~~~~~~~~~~~~~~~~~~~~~~~~~~~~ This note may have been dictated using Dragon Medical Practice Edition 2.6 and/or [employer] Voice Recognition Feature. The document was proofread; however, unrecognized voice recognition night time nanny errors may be present. Images from the original note were not included. PHYSICAL THERAPY [facility] Initial Evaluation Name/MRN: Ada June ([id number]) Evaluation Date: 01/08/2023 Date of : 1945 Admission Date: 01/06/2023 10:07 PM Age: 77 y.o. Room/Bed: T2-219/T2-219 A Discharge Recommendation: SNF Equipment Needed: TBD at next level of care Assessment IMPRESSION: Pt admitted to hospital due to SDH following fall on coumadin. Underwent bilateral audie hole surgery with drains placed 01/07. Bilateral mitt restraints. Alert and able to respond appropriately to questions. A&O x 3. Completing bed mobility with maxA x 1, sat at EOB x 7 minutes with modA x 1 and occasionally SBA for brief periods of time (5-10 sec). Trialed x 3 sit to stand transfers with maxA and was unable to achieve standing position due to anterior sliding/kicking of bilateral LE's. Pt does not have shoes in room. 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 RN aware. Recommending SNF at discharge due to skilled needs at this time. Diagnosis: SDH following fall on coumadin. Underwent bilateral audie hole surgery with drains placed 01/07. Prognosis: fair Performance Deficits /Impairments: Decreased Functional Mobility, Decreased ADL status, Decreased Strength, Decreased Safety Awareness, Decreased Cognition, Decreased Endurance, Decreased Balance, and Decreased Posture Decision Making: Medium Complexity Subjective Pt cleared for therapy by RN. Audie hole drains clamped prior to session. No complaints of pain. A&O x 3 Pain: Pt denies any current pain. Past Medical History: No past medical history on file. Past Surgical History: No past surgical history on file. 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 Fall Risk: Shin Fall Risk Score: 75 (High Risk) Precautions/Restrictions: Other Position/Activity Restriction: Audie hole drains, catheter, Tele, PIV Family/Caregiver Present: none Overall Cognitive Status: Exceptions - Arousal/alertness: appropriate responses to stimuli - Following commands: follows one step commands with increased time and follows one step commands with repetition - Memory: decreased recall of precautions - Safety judgement: decreased awareness of need for assistance and decreased awareness of need for safety - Problem solving: assistance required to generate solutions, assistance required to identify errors made, and assistance required to correct errors made - Initiation: requires cues for all - Sequencing: requires cues for all Overall Orientation Status: Oriented to Place, Oriented to Time, and Oriented to Person Vision: wears glasses at all times and and are being used during the eval Hearing: normal Social/Functional History Patient admitted from home. Lives With: Alone Type of Home: single family home Home Layout: Single Level Home Home Access: Stairs to Enter with Rails (# of stairs: 2) Bathroom Shower/Tub: Toilet: N/A Home Equipment: none Homemaking Responsibilities: Independent Receives Help From: None Active Orthodontic Laboratory Technician: Prior Level of Function ADL Assistance: Independent Ambulation Assistance: Independent Transfer Assistance: Independent Objective Lower Extremity Assessment AROM: WFL PROM: WFL Strength: Exceptions: Globally atleast 3/5 strength bilateral LE's Bed Mobility: Supine to sit: Max Assist Sit to supine: Max Assist Scooting: Max Assist, x2 Person Assist Transfers Sit to stand: Max Assist X 3 trials with pt unable to complete stand due to anterior sliding/kicking of bilateral LE's. Bilateral knee and foot block with continued inability to complete stand. Ambulation Did not assess this session. Balance: Pt sat at EOB x 7 min with modA. Significant lateral lean to the R with occasional retro lean. SBA for brief periods (5-10 sec) before returning to modA. Posture: fair Sitting - Static: Mod Assist Sitting - Dynamic: Mod Assist Standing - Static: Unable to achieve standing position with maxA Standing - Dynamic: Unable to assess Outcome Measures AM-PAC How much HELP from another person do you currently need Turning from your back to your side while in a flat bed without using bedrails?: Total Moving from lying on your back to sitting on the side of a flat bed without using bedrails?: Total Moving to and from a bed to a chair (including a wheelchair)?: Total Standing up from a chair using your arms (wheelchair or bedside chair)?: Total Walking in a hospital room?: Total Stair climbing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 for SDH evacuation, B drains in place. Speech is more clear today, remains confused but able to answer questions more appropriately today. No pain, CP, abdominal pain, breathing is easy, slight nausea overnight but without vomiting, no BM this admission Ada June is a 77 y.o. male living alone at home, independent, no longer driving, PMHx includes: afib on coumadin, CAD, DM, HTN, heart valve replacement, found in bathtub fully clothed unresponsive by son, taken to [place] ER CTH revealing SDH transferred to [facility] ICU for care. Seen by neurosurgery with plans for B audie holes today. Palliative care consulted for goals of care Goals of care:Continue Current Management Advance Directives: Full Code Surrogate: Child Prognosis: unknown Spiritual assessment: No spiritual distress identified Bereavement and grief: Grief Issues Not Identified Review of Systems ROS: See palliative care ROS/ESAS below; All other systems were reviewed and are negative. Mars Symptom Assessment Score Mars Score Pain Score 0 Tiredness Score 0 Nausea Score 0 Depression Score 0 Anxiety Score 0 Drowsiness Score 0 Anorexia Score (0= eating well, 10= not eating) 3 Wellbeing Score (10= worst sense of well-being) 5 Constipation 0 Dyspnea Score (0= no shortness of breath) 0 FLACC Scale (For Pain Assessment of the Non-Verbal Patient) Patient is verbal Assessed by: patient and provider. 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 Objective: Physical Exam BP (!) 147/73 Comment: Hydralazine given. Pulse 56 Temp 36.8 C (98.3 F) (Temporal) Resp 16 Ht 6' 3.5 (1.918 m) Wt 171 lb 11.8 oz (77.9 kg) SpO2 97% BMI 21.18 kg/m Physical Exam Vitals and nursing note reviewed. HENT: Head: Comments: Dressing intact, drains intact Nose: Nose normal. Mouth/Throat: Mouth: Mucous membranes are moist. Eyes: General: Right eye: No discharge. Left eye: No discharge. Cardiovascular: Rate and Rhythm: Normal rate and regular rhythm. Pulses: Normal pulses. Heart sounds: Normal heart sounds. Comments: No edema B post tib/dorsalis pedis palpable Pulmonary: Effort: Pulmonary effort is normal. Breath sounds: Normal breath sounds. Abdominal: General: Bowel sounds are normal. There is no distension. Palpations: Abdomen is soft. There is no mass. Musculoskeletal: Cervical back: Normal range of motion and neck supple. Right lower leg: No edema. Left lower leg: No edema. Skin: General: Skin is warm and dry. Comments: fragile Neurological: Mental Status: He is disoriented. Comments: Speech improved today Psychiatric: Behavior: Behavior is cooperative. Comments: No agitation Current Medications: Inpatient medications reviewed: yes Home medications reviewed: yes OARRS Reviewed: copied from initial consult: Yes-oxycodone 5mg #18(3D) filled 01/29/22 24 Hour PRN Meds: reviewed Results/Verification of Data Review Objective data reviewed (be specific which labs, imaging reports with dates reviewed): MAR/vitals/labs/CTH report reviewed 01/08/23 Data in Support of Terminal Illness: Is patient hospice appropriate? no Son called in to unit to speak with this RN about concerns he has been having over this past year about his father sending out large quantities of money to unknown individuals on the internet as well as other questionable behaviors typically being sexual in nature. Son is currently requesting a psychiatric evaluation. Dr. Lane with SICU team notified of conversation and the request for psych consult. Physical therapy eval and treat orders received. Per orders, patient is on strict bed rest at this time. Will follow and evaluate when able. CLARE Gomez Images from the original note were not included. Daily Trauma Progress Note Resident 01/08/2023 6:37 AM Admit Date: 01/06/2023 Post Trauma Day 01/06/2023 Unwitnessed mechanical fall on eliquis HPI: 77 yo M s/p fall from standing on coumadin. Fall was unwitnessed, patients son found him in the bathtub after. Patient was noted by family to have AMS over the last couple days. 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 PROCEDURES: - Bilateral craniotomy and evacuation of subdural hematoma with NSGY CHIEF COMPLAINT: Mechanical fall, AMS PREVIOUS 24 HOUR EVENTS: - OR with NSGY, patient was extubated and returned to T2 SICU in stable fasion Consults: IP CONSULT TO NEUROSURGERY IP CONSULT TO PALLIATIVE CARE IP CONSULT TO GERIATRICS IP CONSULT TO CARDIOLOGY MEDICATIONS: Current Facility-Administered Medications: albuterol (2.5 MG/3ML) 0.083% nebulizer solution 2.5 mg, 2.5 mg, Nebulization, q2h PRN, Sonia A Orosz, [employer]OWERMAN - FLOOR SWEEPER ceFAZolin (Ancef) 1,000 mg in sodium chloride 0.9 % 50 mL IVPB, 1,000 mg, IntraVENous, q8h, Sonia A Orosz, TOWERMAN - FLOOR SWEEPER, Last Rate: 100 mL/hr at 01/08/23 0623, 1,000 mg at 01/08/23 0623 hydrALAZINE (Apresoline) injection 10 mg, 10 mg, IntraVENous, q2h PRN, Sonia A Orosz, TOWERMAN - FLOOR SWEEPER, 10 mg at 01/08/23 0313 HYDROmorphone (Dilaudid) injection 0.25 mg, 0.25 mg, IntraVENous, q3h PRN, Sonia A Orosz, TOWERMAN - FLOOR SWEEPER labetalol (Normodyne,Trandate) injection 10 mg, 10 mg, IntraVENous, q2h PRN, Sonia A Orosz, TOWERMAN - FLOOR SWEEPER, 10 mg at 01/08/23 0558 ondansetron ODT (Zofran-ODT) disintegrating tablet 4 mg, 4 mg, Oral, q8h PRN OR ondansetron (Zofran) injection 4 mg, 4 mg, IntraVENous, q6h PRN, Sonia A Orosz, TOWERMAN - FLOOR SWEEPER pantoprazole (ProtoNix) EC tablet 40 mg, 40 mg, Oral, Nightly OR pantoprazole (ProtoNix) 40 mg in sodium chloride (PF) 0.9 % 10 mL injection, 40 mg, IntraVENous, Nightly, Sonia Garces [employer]OWERMAN - FLOOR SWEEPER, 40 mg at 01/07/232019 polyethylene glycol (PEG) 3350 (Miralax) packet 17 g, 17 g, Oral, Daily PRN, Sonia Salazar Orosz, TOWERMAN - FLOOR SWEEPER polyethylene glycol (PEG) 3350 (Miralax) packet 17 g, 17 g, Oral, Daily, Lesley Asencio MD sennosides (Senokot) tablet 8.6 mg, 1 tablet, Oral, Nightly, Lesley Asencio MD sodium chloride 0.9 % infusion, 5-250 mL/hr, IntraVENous, PRN, Sonia Garces [employer]OWERMAN - FLOOR SWEEPER sodium chloride 0.9 % infusion, 100 mL/hr, IntraVENous, Continuous, Sonia Garces [employer]OWERMAN - FLOOR SWEEPER, Last Rate: 100 mL/hr at 01/08/23 0306, 100 mL/hr at 01/08/23 0306 tamsulosin (Flomax) 24 hr capsule 0.4 mg, 0.4 mg, Oral, Daily, Sonia Garces [employer]OWERMAN - FLOOR SWEEPER ARE THERE PERTINENT UPDATES TO PAST,FAMILY, OR SOCIAL HISTORY?: No Subjective: Patient resting comfortably in bed. S/p bilateral audie hole SDH evacuation yesterday with NSGY. He is awake and able to answer questions and follow simple commands. No changes in vision, word finding difficulties, or new numbness or tingling. Patient states he is not having pain after surgery. Doing well this morning Review of Systems Constitutional: Negative. HENT: Dressing intact over surgical incisions. Eyes: Negative. Respiratory: Negative. Cardiovascular: Negative. Gastrointestinal: Negative. Endocrine: Negative. Genitourinary: Negative. Musculoskeletal: Negative. Skin: Negative. Objective: Patient Vitals for the past 24 hrs: BP Temp Temp src Pulse Resp SpO2 Weight 01/08/23 0600 136/51 -- -- 65 18 -- -- 01/08/23 0500 (!) 144/57 -- -- 60 18 97 % 77.9 kg (171 lb 11.8 oz) 01/08/23 0400 (!) 124/44 36.8 C (98.3 F) Temporal 63 16 97 % -- 01/08/23 0315 (!) 124/94 -- -- -- 16 97 % -- 01/08/23 0300 (!) 153/54 36.7 C (98 F) -- 71 20 99 % -- 01/08/23 0245 (!) 153/76 -- -- 70 16 98 % -- 01/08/23 0230 (!) 146/49 -- -- 66 16 -- -- 01/08/23 0215 (!) 139/108 -- -- 71 14 -- -- 01/08/23 0200 (!) 155/53 -- -- 64 14 100 % -- 01/08/23 0145 (!) 140/75 -- -- 62 16 98 % -- 01/08/23 0130 (!) 158/55 -- -- 61 20 98 % -- 01/08/23 0115 (!) 156/90 -- -- 69 18 97 % -- 01/08/23 0105 (!) 139/49 -- -- 66 16 98 % -- 01/08/23 0100 (!) 166/58 -- -- 67 15 98 % -- 01/08/23 0045 (!) 141/71 -- -- 65 18 99 % -- 01/08/23 0030 (!) 133/115 -- -- 74 17 98 % -- 01/08/23 0000 (!) 146/60 -- -- 75 19 98 % -- 01/07/23 2300 (!) 123/98 36.2 C (97.1 F) Temporal 66 16 99 % -- 01/07/23 2200 137/54 -- -- 69 17 100 % -- 01/07/23 2100 (!) 131/47 -- -- 62 14 99 % -- 01/07/23 2000 134/69 36.4 C (97.5 F) Temporal 64 15 99 % -- 01/07/23 1900 (!) 139/49 -- -- 59 16 99 % -- 01/07/23 1845 (!) 146/49 -- -- 72 25 98 % -- 01/07/23 1830 128/53 -- -- 71 17 99 % -- 01/07/23 1818 (!) 168/54 -- -- 67 -- -- -- 01/07/23 1815 (!) 146/55 -- -- 68 17 96 % -- 01/07/23 1800 (!) 144/44 -- -- 67 17 100 % -- 01/07/23 1745 127/61 -- -- 60 17 99 % -- 01/07/23 1730 (!) 145/50 36.4 C (97.6 F) Temporal 62 20 99 % -- 01/07/23 1715 136/58 36.5 C (97.7 F) Temporal 59 (!) 11 100 % -- 01/07/23 1700 (!) 119/92 36.5 C (97.7 F) Temporal 63 16 100 % -- 01/07/23 1645 -- 36.3 C (97.3 F) Temporal 65 14 100 % -- 01/07/23 1630 -- 36.2 C (97.1 F) Temporal 55 (!) 28 100 % -- 01/07/23 1400 (!) 145/58 -- -- 74 19 97 % -- 01/07/23 1345 -- -- -- 74 15 97 % -- 01/07/23 1330 -- -- -- 68 17 98 % -- 01/07/23 1315 -- -- -- 74 21 100 % -- 01/07/23 1300 (!) 135/47 -- -- 65 13 96 % -- 01/07/23 1200 139/66 37 C (98.6 F) Temporal 70 19 99 % -- 01/07/23 1100 (!) 140/69 -- -- 76 15 98 % -- 01/07/23 1000 (!) 142/81 -- -- 60 18 97 % -- 01/07/23 0900 123/56 -- -- 73 12 98 % -- 01/07/23 0800 (!) 135/113 36.8 C (98.3 F) Temporal 69 13 99 % -- Intake/Output Summary (Last 24 hours) at 01/08/2023 0637 Last data filed at 01/08/2023 0500 Gross per 24 hour Intake 3190.9 ml Output 1105 ml Net 2085.9 ml I/O this shift: In: 1295 [I.V.:1295] Out: 655 [Urine:600; Drains:35; Blood:20] Last BM: Prior to admission Diet: Dietary Orders (From admission, onward) Start Ordered 01/07/23 1626 NPO diet Diet effective now 01/07/23 1626 CVP: No Chest Tubes: R: No L: No PHYSICAL: Physical Exam Constitutional: Appearance: Normal appearance. HENT: Head: Comments: Patient has post op dressing in place. Bilateral CLIFF drains in place from surgery. No active bleeding from incisions, dressing clean/dry/intact Cardiovascular: Rate and Rhythm: Normal rate. Rhythm irregular. Pulses: Normal pulses. Pulmonary: Effort: Pulmonary effort is normal. Breath sounds: Normal breath sounds. Abdominal: General: Abdomen is flat. Palpations: Abdomen is soft. Musculoskeletal: General: Normal range of motion. Skin: General: Skin is warm and dry. Neurological: General: No focal deficit present. Mental Status: He is alert and oriented to person, place, and time. Mental status is at baseline. Sutures or oswaldo? Yes O2: / / / Data Review Data CBC with Differential: Lab Results Component Value Date WBC 9.4 01/08/2023 RBC 3.54 (L) 01/08/2023 HGB 10.5 (L) 01/08/2023 HCT 30.9 (L) 01/08/2023 PLT 184 01/08/2023 CMP: Lab Results Component Value Date NA 134 (L) 01/08/2023 K 4.4 01/08/2023 CL 103 01/08/2023 CO2 22 01/08/2023 BUN 34 (H) 01/08/2023 CREATININE 0.88 01/08/2023 GLUCOSE 139 (H) 01/08/2023 CALCIUM 8.8 01/08/2023 BMP: Hepatic Function Panel:Ionized Calcium: No components found for: IONCA Magnesium: Lab Results Component Value Date MG 2.0 01/06/2023 Phosphorus: No results found for: PHOS PT/INR: Lab Results Component Value Date PROTIME 13.1 (H) 01/06/2023 INR 1.2 (H) 01/06/2023 PTT: Lab Results Component Value Date APTT 24.1 01/06/2023 [APTT Last 3 Troponin: No results found for: TROPONINI Urine Culture: No components found for: CURINE Blood Culture: No components found for: CBLOOD , CFUNGUSBL Blood Culture from Central Line: No components found for: CBLOODLN Stool Culture: No components found for: CSTOOL Sputum Culture: No components found for: CSPUTUM Sputum Culture for AFB: No components found for: CAFBSM Wound Culture: N/A Radiology: CT head wo IV contrast Narrative: Patient Name: AAD JUNE : 1945 Exam Date/Time: 01/07/2023 04:25 Procedure: CT HEAD WO IV CONTRAST Ordering Provider: ORTEGA LAURA Reason For Exam: SDH, prior CT in PACS EXAMINATION: CT HEAD WO IV CONTRAST HISTORY: Subdural hemorrhage. TECHNIQUE: CT head without contrast. Dose reduction was employed with automated exposure control. COMPARISON: None. RESULT: Study was not presented to me for interpretation until time of dictation on 01/07/2023. 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 There is at least mild mass effect on the bilateral frontal and parietal lobes as well as right temporal lobe with areas of sulcal effacement. No midline shift or evidence of transient or herniation. Chronic change: Scattered patchy foci of low attenuation are present within supratentorial white matter which is a nonspecific finding but likely represents mild microvascular ischemia. Evidence focus of the right basal ganglia and anterior limb of the right internal capsule suggests a lacunar infarct, age indeterminate though suspected to be chronic and unchanged from prior head CT. Atherosclerotic calcifications of the carotid siphons and vertebral arteries. Ventricles: Stable normal caliber and morphology. Other: The calvarium, skull base, imaged paranasal sinuses, mastoids, orbits and extracranial soft tissues are unremarkable. Impression: Stable mixed attenuating bilateral holohemispheric subdural hemorrhages and unchanged mass effect. 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 Microvascular ischemic changes. 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 Assessment: Plan: Neuro / Spine - Pain control: Dilaudid 0.25 q3hr PRN - Patient used multiple times overnight, well controlled - Elevate HOB 30 degrees - Hold anticoagulation, DVT ppx - Neuro checks q1hr - SBP goal < 140 - Patient required PRNs multiple times overnight - [employer] ENGINEER eval today, recommend strict NPO - Palliative consult, appreciate recs - Geriatrics consult, appreciate recs Cardiovascular - Hemodynamically stable - Cardiology consult, hold anticoagulation until able to be seen as an outpatient - Labetalol/hydralazine prn - Continue using prn medications while NPO - Telemetry Pulmonary - Standard O2 protocol - IS - Duonebs PRN FEN/GI - NPO with NS 100cc/hr - Zofran PRN - [employer] ENGINEER eval today - Daily BMP, CBC, Mg, Phos - No acute issues - Monitor I/Os - - Goal UOP > 0.5 ml/kg/hr Endocrine - No acute issues Heme - Hgb stable - No transfusions indicated ID - No acute issues - No antibiotics indicated Psych - Per patients son, has 1 year history of abnormal behavior including inappropriate texting and concern for over the phone scam susceptibility - Geriatrics involved for patient's delirium, patient pulled his arterial line out today - 1 time dose 0.5 ativan given, geriatrics recs seroquil 12.5 BID prn - Patient placed in soft restraints Lines/Devices: - PIV - Chu, will remove today - CLIFF drains x2 postop, will stay in place per neurosurgery Prophylaxis: DVT: SCDs, no chemoppx Has DVT PPX been started? No If no, why? Head bleed, post op GI: None indicated Pressure Ulcer: Continue to monitor, q2 turns Musculoskeletal: - PT/OT - Bedrest - All extremities AT Is the patient in restraints?: Yes Medications Reconciled- Yes [] NO [x] Disposition: T2 SICU while subdural drains are in place Narinder Lane MD General Surgery Resident PGY-1 01/08/23 6:37 AM This note may have been dictated using [employer] Practice Edition 2.6 and/or [employer] Voice Recognition Feature. The document was proofread; however, unrecognized voice recognition night time nanny errors may be present. 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 I personally discussed the review of systems and interviewed the patient along with performing a physical examination. I reviewed the recent events, imaging, labs, vital signs. In addition, I discussed the patient's condition and treatment options with him/her when possible. I have also reviewed and agree with the past medical, family, and social history unless otherwise noted. All of the patient's questions were answered and family updated when appropriate and possible. A complete review of systems was obtained and is negative except as stated in HPI and/or Subjective Section. -as per Dr. Lane's note -I evaluated patient on 01/08/23 -patient admitted evening of 01/06 with bilateral acute on chronic SDHs Neuro: OR yesterday with Neurosurg for Audie hole evacuation of bilateral SDHs, AM head CT today with expected post-op changes, continue serial neuro checks, subdural drains will remain in-place today...Delirium: hypoactive initially with visual hallucinations (bugs on ceiling), then developed into more hyperactive/agitated delirium, DHT placed for BID Seroquel and additional HS dose, low-dose PRN haldol available for breakthrough CV: h/o a-fib on warfarin, appreciate Cards recs, patient does NOT have mechanical valve, continue to hold anticoagulation; avoid hypertension -Pulm: no acute concerns -FENGI: failed Speech eval today, DHT placed, start tube feeds -: chu placed for OR, on Flomax after urinary retention yesterday morning, will continue chu for today, continue Flomax -Heme: SCDs, continue to hold anticoagulation -ID: no acute concerns -Dispo: continue ICU care Total Care Time throughout the day today was >= 50 minutes (including chart/data review/analysis, care coordination, and [id number] encounter), and was spent discussing/counseling the patient/family regarding the care plan for Ada June. I examined the patient independently. I reviewed relevant data myself and may have also done so in the context of team rounds. A full chart review was performed. Level of Medical Decision Making: [x]High []Moderate []Low Complexity: [x]Acute or chronic illness/injury posing a threat to life or bodily function without treatment (HIGH) []Chronic illness with severe exacerbation, progression, or side effect of treatment (HIGH) []Chronic illness with mild to moderate exacerbation, progression, or side effect of treatment (MOD) []Previously undiagnosed (new) problem with uncertain prognosis (MOD) []Acute illness with systemic symptoms (MOD) []Acute, complicated injury (MOD) []Multiple stable chronic illnesses (MOD) Risk: [x]Parental controlled substances (HIGH) []Decision not to resuscitate or to de-escalate care because of poor prognosis (HIGH) []Decision regarding major surgery with identified patient or procedure risk factors (HIGH) []Decision regarding emergency surgery (HIGH) [x]Drug or treatment/therapy requiring intensive monitoring (HIGH) []Prescription drug management (MOD) []Decision regarding surgery with identified patient or procedure risk factors (MOD) []Diagnosis or treatment significantly limited by social determinants of health (MOD) Personally Reviewed/Independently interpreted patient's: [x]Epic notes [x]Radiology studies [x]Labs []EKG []Ordering tests []Other Discussed/ With: [x]Patient/Family [x]RN [x]Consultants []Primary Team [x]SW/TCC []Other Time was spent: -Reviewing the medical record, including recent tests and results -Ordering prescription medications/tests and procedures -Communicating results to the patient/family/caregiver -Counseling/educating the patient/family/caregiver -Documenting clinical information in the patient's electronic record -Co-ordination of care for the patient -Performing a medically appropriate exam and evaluation Eleazar Arenas MD, FACS Trauma, Surgical Critical Care, & Acute Care Surgery Department of Surgery [facility] Pager: [phone] ~~~~~~~~~~~~~~~~~~~~~~~~~~~~~~~~~ ~~~~~~~~~~~~~~~~~~~~~~~~~~~~ This note may have been dictated using [employer] Medical Practice Edition 2.6 and/or [employer] Voice Recognition Feature. The document was proofread; however, unrecognized voice recognition night time nanny errors may be present. Speech-Language Pathology Patient is currently NPO with plans for OR this afternoon. ST will re-attempt as schedule permits and condition improves. Brittani Lira MA CCC-[employer] Physical Therapy Evaluation and Treatment Order Received. As per chart review, Plan for bilateral audie holes for evacuation of SDH today with Dr. Willams. Will hold and continue to follow History Of Present Illness Ada June is a 77 y.o. gentleman who is presenting following a fall in the bathroom in which he hit his head. PMH significant for HTN , HLD, CAD and chronic A-fib. He had an aortic valve replacement and CABG done in July of 2021. He has been anticoagulated with Warfarin for his A-fib. He was found clothed, lying in the bathtub by his son. Patient has difficulty recalling events preceding the fall. He is only able to say that he was sitting on the edge of the tub and then he fell. He does not say why he was sitting at the edge of the tub. He appears confused, but denies chest pain, SOB, N/V, headache. Due to his head injury history is a bit challenging Past Medical History He has no past medical history on file. Surgical History He has no past surgical history on file. Social History He reports that he quit smoking about 9 years ago. His smoking use included cigarettes. He does not have any smokeless tobacco history on file. No history on file for alcohol use and drug use. Allergies Patient has no known allergies. Medications No medications prior to admission. Review of Systems Unable to perform ROS: Mental status change Constitutional: Negative for chills, fatigue and fever. HENT: Negative for trouble swallowing. Respiratory: Negative for cough, chest tightness and shortness of breath. Cardiovascular: Negative for chest pain. Gastrointestinal: Negative for abdominal pain, blood in stool, constipation, diarrhea, nausea and vomiting. Genitourinary: Negative for dysuria, hematuria and urgency. Musculoskeletal: Negative for myalgias and neck pain. Skin: Negative for rash. Neurological: Positive for dizziness. Negative for tremors, weakness, numbness and headaches. Hematological: Bruises/bleeds easily (d/t anticoagulation). Psychiatric/Behavioral: Positive for confusion and decreased concentration. Negative for agitation and sleep disturbance. Physical Exam Constitutional: General: He is not in acute distress. Appearance: He is not toxic-appearing. Cardiovascular: Rate and Rhythm: Normal rate. Rhythm irregular. Pulses: Normal pulses. Heart sounds: Normal heart sounds. No murmur heard. No gallop. Pulmonary: Effort: Pulmonary effort is normal. No respiratory distress. Breath sounds: Normal breath sounds. No wheezing or rhonchi. Abdominal: General: Abdomen is flat. Bowel sounds are normal. There is no distension. Palpations: Abdomen is soft. Tenderness: There is no abdominal tenderness. Skin: General: Skin is warm and dry. Findings: Bruising present. Neurological: Mental Status: He is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 peak gradient is 27 mmHg, the mean gradient is 16 mmHg and the dimensionless valve index is 0.25. - Estimated right ventricular systolic pressure is 54 mmHg consistent with moderate pulmonary hypertension. Estimated right atrial pressure is 15 mmHg based on IVC assessment. RVSP may be underestimated given severe TR. - No echo contrast available. - Possible abdominal aortic dissection seen in the abdominal aorta (clips [id number]). Consider tomographic imaging to better assess, particularly given upcoming scheduled cardiac surgery. - Discussed possible dissection with Dr. Bae whom the patient saw in clinic earlier today. - The patient has not had a prior CC echocardiographic exam for comparison. * * * Final * * * CT CHEST CARDIAC WO IVCON Collection Time: 07/24/21 1:11 PM Impression IMPRESSION: 1. The thoracic aorta is normal in caliber. Mild to moderate luminal calcification, with sparing of the ascending segment. There is no definite acute aortic pathology. 2. Severe biatrial enlargement. Probable left ventricular enlargement 3. Lung windows demonstrate mild emphysematous changes, with an upper lobe predominance. Moderate right and small left pleural effusions, with adjacent atelectasis and associated fissural fluid. [employer] Assistant Principal: PSC[employer] Transcribe Date/Time: Jul 24 2021 3:16P Dictated by : DAISY MALDONADO MD This examination was interpreted and the report reviewed and electronically signed by: DAISY MALDONADO MD on Jul 24 2021 3:43PM EST XR CHEST 2V FRONTAL/LAT Collection Time: 07/24/21 11:43 AM Impression IMPRESSION: As above High School Assistant Principal: PSC[employer] Transcribe Date/Time: Jul 25 2021 12:25A Dictated by : PEARL ROSSI MD This examination was interpreted and the report reviewed and electronically signed by: PEARL ROSSI MD on Jul 25 2021 12:26AM EST ECG COMPLETE Collection Time: 07/24/21 11:37 AM Impression ATRIAL FIBRILLATION WITH PREMATURE VENTRICULAR COMPLEXES ANTERIOR MYOCARDIAL INFARCTION , AGE UNDETERMINED ABNORMAL ECG Assessment No problem-specific Assessment & Plan notes found for this encounter. ANESTHESIA FINDINGS: Intubation History: No history of difficult intubation. No abnormal airway history Significant Anesthesia Considerations: none Airway History: No history of difficult airway No abnormal airway history Prepared for Surgery: optimally prepared for surgery, pending day of surgery. The Following Tests/Procedures Have Been Initiated: Orders Placed This Encounter mupirocin (BACTROBAN) 2 % ointment Sig: Apply a small amount in each nostril using a cotton swab twice the day before surgery and once the morning of surgery. Dispense: 22 g Refill: 0 Order Comments: Supply patient with Q-tips and instruction sheet ASA Class: 4 Planned Anesthetic: general I - PHYSICAL EVALUATION AIRWAY Tracheostomy tube not present Mallampati: I. TM distance: >3 FB. Neck ROM: full ROM without neurological symptoms. Mouth opening: adequate. Short neck: no. Thick neck: no DENTAL Dentures, upper: complete. II - ANESTHESIA PLAN ASA Score: 4 Anesthetic Plan: general Airway type: ETT Informed Consent Anesthetic risks, benefits, alternatives, personnel and consent discussed: yes. Patient / Responsible Alliance Party agrees to proceed: yes Patient / Surrogate agrees to blood products: Yes Instructions Given to Patient: Instructions located in the after visit summary. Patient given verbal and written preop instructions and voices comprehension and compliance. Signature: Aliya Oliva MD Patient Name: Ada June Date: July 26, 2021 Time: 11:16 AM Pager/Contact #: * Jenna Gonzalez MD - 07/26/2021 11:14 AM EDT Cardiothoracic Anesthesiology Preoperative Assessment Service Date: 07/26/2021 Service Time: 11:14 AM Primary Care Physician: Macy Barcenas MD Subjective *TCI General* COVID-19 Immunization Status Overdue - COVID-19 VACCINE (3 - Booster for Moderna series) Overdue since 10/04/2020 05/04/2020 Imm Admin: COVID-19 vaccine, full dose (MODERNA) 04/07/2020 Imm Admin: COVID-19 vaccine, full dose (MODERNA) The patient has the following: ACTIVE PROBLEM LIST Esophageal Reflux Diverticulosis of Colon (Without Mention of Hemorrhage) Benign Neoplasm of Colon Carotid Artery Occlusion Hyperlipidemia Essential Hypertension, Benign Depression S/P Hip Replacement Numbness of Fingers of Both Hands Retroperitoneal Fibrosis Incisional Hernia Personal History of Colonic Polyps Discharge Planning Issues Preop Testing Cad (Coronary Artery Disease) PAST MEDICAL HISTORY Diagnosis Date Atrial fibrillation (HCC) Benign neoplasm of colon CAD (coronary artery disease) Cardiomyopathy (HCC) Carotid stenosis Congestive heart failure (HCC) Depressive disorder Diabetes mellitus (HCC) Diabetic neuropathy (HCC) Family history of malignant neoplasm of gastrointestinal tract GERD (gastroesophageal reflux disease) Hepatitis CHILD Herniated disc L4-5 HTN (hypertension), benign Hydronephrosis Hyperlipidemia Macular degeneration RIGHT EYE Migraine, unspecified, with intractable migraine, so stated, without mention of status migrainosus [id number]-[id number] X 8YRS Mitral valve regurgitation Tricuspid valve regurgitation PAST SURGICAL HISTORY Procedure Laterality Date ARTERY X-RAYS, NECK 01-10-09 ARTHROSCOPY KNEE DIAGNOSTIC W/WO SYNOVIAL BX SPX Arthroscopy, knee ARTHRP ACETBLR/PROX FEM PROSTC AGRFT/ALGRFT 11-28-08 Hip replacement, total, left (Dr. Juan Carlos Kemp, [facility]) ARTL CATHJ/CANNULJ MNTR/TRANSFUSION SPX PRQ 01-13-09 COLONOSCOPY FLX DX W/COLLJ SPEC WHEN PFRMD 1997 Colonoscopy COLONOSCOPY FLX DX W/COLLJ SPEC WHEN PFRMD 06/27/08 Colonoscopy COLONOSCOPY FLX DX W/COLLJ SPEC WHEN PFRMD 11-05-13 LAPS RPR INCISIONAL HERNIA NCRC8/STRANGULATED 05-16-11 PAST SURGICAL HISTORY OF bakers cyst removed PAST SURGICAL HISTORY OF umbilical hernia repair PAST SURGICAL HISTORY OF right inguinal hernia repair PAST SURGICAL HISTORY OF RIGHT KNEE ARTHROSCOPIC REPAIR PAST SURGICAL HISTORY OF 11/2010 CYST,URETEOSCOPY,BILATERAL STENT PLACEMENT PAST SURGICAL HISTORY OF Nov 2008 Hip replacement post fracture -- Dr. Juan Carlos Kemp SLCTV CATHJ 1ST 2ND ORD [facility] 01-10-09 SLCTV CATHJ EA 1ST ORD [facility] 01-10-09 TEAEC W/PATCH GRF CAROTID VERTB SUBCLAV NECK INC 01-13-09 RIGHT TEAEC W/PATCH GRF CAROTID VERTB SUBCLAV NECK INC 05/08/2009 left carotid endarterectomy FAMILY HISTORY Problem Relation Age of Onset Breast Cancer Mother Colon Cancer Father diagnosed age 91 Breast Cancer Sister No Known Problems Sister No Known Problems Sister other (other) Brother in infancy Coronary Artery Disease Other none Diabetes Other none Prostate Cancer Other none Social History Tobacco Use Smoking status: Former Smoker Years: 40.00 Types: Cigarettes Quit date: 11/27/2008 Years since quittin.6 Smokeless tobacco: Never Used Tobacco comment: SMOKED ANYWHERE BETWEEN 0.5-3 PPD Vaping Use Vaping Use: Never used Substance Use Topics Alcohol use: Not Currently Comment: occ Drug use: No Prior to Admission medications as of 07/24/21 1013 Medication Sig Last Dose Taking cholecalciferol (VITAMIN D-3) 5,000 unit tab Take 5,000 Units by mouth once daily. LUTEIN-ZEAXANTHIN ORAL Take 1 capsule by mouth once daily. 07-24-2021: lutein 25 mg-Zeaxanthin 5 mg sacubitril-valsartan (ENTRESTO) 24-26 mg tablet Take 1 tablet by mouth twice daily. amLODIPine (NORVASC) 5 mg tablet Take 5 mg by mouth once daily. carvedilol (COREG) 6.25 mg tablet Take 6.25 mg by mouth twice daily with meals. atorvastatin (LIPITOR) 20 mg tablet Take 20 mg by mouth every evening. warfarin (COUMADIN) 5 mg tablet Take 5 mg by mouth daily as directed. 07-24-2021: on hold since 07-21-2021 but prior was taking 7.5 mg daily. glimepiride (AMARYL) 1 mg tablet Take 1 mg by mouth daily with breakfast. torsemide (DEMADEX) 20 mg tablet Take 1 tablet by mouth once daily for 7 days. omeprazole 20 mg capsule Take 1 capsule by mouth once daily. No medication comments found. ALLERGIES No Known Allergies Objective Pain Assessment: Vitals: There were no vitals taken for this visit. Diagnostic tests reviewed for today's visit: Lab Value Units Date High Low HB No results within date range. HCT No results within date range. WBC No results within date range. PLT No results within date range. NA 137 mmol/L 07/24/2021 144 136 K 4.2 mmol/L 07/24/2021 5.1 3.7 GLUC 106 mg/dL 07/24/2021 99 74 BUN 14 mg/dL 07/24/2021 24 9 CREAT 0.83 mg/dL 07/24/2021 1.22 0.73 PTSEC No results within date range. INR No results within date range. APTT No results within date range. ALT 13 U/L 07/24/2021 54 10 AST 15 U/L 07/24/2021 40 14 TBILI 1.5 mg/dL 07/24/2021 1.3 0.2 TSH No results within date range. Lab Value Units Date High Low HCGQT No results within date range. UHCG No results within date range. HCG, BODY* No results within date range. Lab Value Units Date High Low ABORHD No results within date range. ABSCREEN No results within date range. No results found for: HBA1C Recent Results (from the past 8760 hour(s)) ECHO Collection Time: 07/24/21 2:41 PM Impression CONCLUSIONS: - Exam indication: Initial evaluation of known cardiomyopathy - The left ventricle is dilated. Left ventricular systolic function is moderately decreased. EF = 30 5% (visual est.) Beat to beat LV systolic variability d/t frequent ectopic beats. - The right ventricle is normal in size. Right ventricular systolic function is mildly decreased. - The left atrial cavity is mildly dilated. - The right atrial cavity is dilated. - There is moderately severe (3+) mitral valve regurgitation. Regurgitant orifice area (PISA) is 0.28 cm . - There is severe (3+ - 4+) tricuspid valve regurgitation. Two separate TR jets seen. - There is low flow, low gradient, low EF, moderately severe aortic valve stenosis caused by calcified valve. AV area is 0.87 cm (0.35 cm /m ) by continuity, VTI. The peak gradient is 27 mmHg, the mean gradient is 16 mmHg and the dimensionless valve index is 0.25. - Estimated right ventricular systolic pressure is 54 mmHg consistent with moderate pulmonary hypertension. Estimated right atrial pressure is 15 mmHg based on IVC assessment. RVSP may be underestimated given severe TR. - No echo contrast available. - Possible abdominal aortic dissection seen in the abdominal aorta (clips [id number]). Consider tomographic imaging to better assess, particularly given upcoming scheduled cardiac surgery. - Discussed possible dissection with Dr. Bae whom the patient saw in clinic earlier today. - The patient has not had a prior CC echocardiographic exam for comparison. * * * Final * * * CT CHEST CARDIAC WO IVCON Collection Time: 07/24/21 1:11 PM Impression IMPRESSION: 1. The thoracic aorta is normal in caliber. Mild to moderate luminal calcification, with sparing of the ascending segment. There is no definite acute aortic pathology. 2. Severe biatrial enlargement. Probable left ventricular enlargement 3. Lung windows demonstrate mild emphysematous changes, with an upper lobe predominance. Moderate right and small left pleural effusions, with adjacent atelectasis and associated fissural fluid. High School Assistant Principal: YING Transcribe Date/Time: Jul 24 2021 3:16P Dictated by : DAISY MALDONADO MD This examination was interpreted and the report reviewed and electronically signed by: DAISY MALDONADO MD on Jul 24 2021 3:43PM EST XR CHEST 2V FRONTAL/LAT Collection Time: 07/24/21 11:43 AM Impression IMPRESSION: As above High School Assistant Principal: YING Transcribe Date/Time: Jul 25 2021 12:25A Dictated by : PEARL ROSSI MD This examination was interpreted and the report reviewed and electronically signed by: PEARL ROSSI MD on Jul 25 2021 12:26AM EST ECG COMPLETE Collection Time: 07/24/21 11:37 AM Impression ATRIAL FIBRILLATION WITH PREMATURE VENTRICULAR COMPLEXES ANTERIOR MYOCARDIAL INFARCTION , AGE UNDETERMINED ABNORMAL ECG Assessment No problem-specific Assessment & Plan notes found for this encounter. *TCI Scoring & Plan* Adult - Exam and Plan Instructions Given to Patient: Instructions located in the after visit summary. Patient given verbal and written preop instructions and voices comprehension and compliance. Signature: Jenna Gonzalez MD Patient Name: Ada June Date: July 26, 2021 Time: 11:14 AM Pager/Contact #: documented in this encounterHolmes County [facility] History of Present illness Narrative* Gustavo Moreno MD - 07/25/2021 11:51 AM EDT Heart Failure Procedural Consent Documentation: Name: Ada June Procedure: Right heart catheterization Informed Consent: The risks including radiation skin injury, benefits, and anticipated outcomes of the procedure, therisk and benefits of the alternatives to the procedure,and the roles and tasks of the personnel to be involved, were discussed with the patient, and the patient consents to the procedure and agrees to proceed. Consent date/time: July 25, 2021 11:51 AM Consented by: Gustavo Moreno MD See separate Procedural Sedation Consent form if sedation is to be administered. UNIVERSAL PROTOCOL / SAFETY CHECKLIST Procedure to be Performed: Right heart catheterization Sign In: A Moment of CARE was completed. Personnel directly involved with the procedure wore the appropriate PPE (Personal Protective Equipment). Patient/Surrogate Stated/Verified: PATIENT VERIFIED(optional for EMERGENT procedures): Patient name, Date of , Relevant allergies and The intended procedure Time Out Communication: Intended patient and procedure match the source documents. Consent documented and matches the intended procedure. Sign Out: SIGN OUT (optional for EMERGENT procedures): No specimen collected. Gustavo Moreno MD History and Physical: Ada June is a 75 year old year-old patient here for Right Heart Catheterization for the indication of pre-operative evaluation. Pertinent examination today revealed: Lungs: Normal respiratory effort Heart: Regular rate and rhythm Post Procedural Plan: Discharge Home Gustavo Moreno MD documented in this encounterHolmes County [facility]05-[facility] Miscellaneous Notes* Telephone Encounter - Dang Fofana RN - 07/24/2021 4:35 PM EDT CARDIOVASCULAR LAB INSTRUCTIONS: Readiness to Learn: Cognitive Ability: Alert and oriented Motivation To Learn: Interested Family/Significant Other Support: Unable to assess - Family not present Instruction Provided To: Patient and family member Patient Learns Best By: Verbal Instruction Factors Affecting Learning: None Physical Limitations Affecting Learning: None Learning Response: Procedure: Right Heart Diagnostic Pre procedure education topics: Arrival time/NPO Status/Medications/Travel Covid19/Driving restrictions Instructions/Restrictions Patient/Family Response Evaluation: Verbalizes understanding Follow Up Plan and Medication: As directed by physician Instruction/Supplemental Material Given: Cardiac catheterization instructions, procedure information, hospital information, hotel information. Instructed By Dang Fofana RN. In Department of CARDIOLOGY. documented in this encounterHolmes County [facility]05-[facility] History of Present illness Narrative* RT Dm(R) - 07/24/2021 12:30 PM EDT Radiology Service Progress Note PATIENT NAME: Ada June DATE OF SERVICE: July 24, 2021 TIME: 1:03 PM PATIENT IDENTITY VERIFICATION COMPLETED USING TWO (2) IDENTIFIERS: Name and Date of confirmedby patient verbally and Name and Date of confirmed by identification band. FALL SCREENING: Has the patient had 2 falls in the last year or 1 fall with injury or currently using an Ambulatory Assistive Device (Walker, Cane, Wheelchair, Crutches, etc.)? Yes, Patient High Riskfor Falls What interventions were put in place to prevent falls during this visit? Yellow Falls Risk Wristband Applied and Offered Assistance with Transfers/Clothing PATIENT GENDER DATA: Male PATIENT RELEVANT IMPLANT DATA REVIEWED: Yes RADIOLOGY DEPARTMENT: CT; Exam(s) Completed: Cardiac PERIPHERAL IV DATA: Not applicable SIGNED BY: RT Toby(R) July 24, 2021 1:03 PM documented in this encounterHolmes County [facility]05-24-2022 History of Present illness Narrative* RT More(R) - 07/24/2021 11:50 AM EDT Radiology Service Progress Note PATIENT NAME: Ada June DATE OF SERVICE: July 24, 2021 TIME: 12:32 PM PATIENT IDENTITY VERIFICATION COMPLETED USING TWO (2) IDENTIFIERS: Name and Date of confirmedby patient verbally. FALL SCREENING: Has the patient had 2 falls in the last year or 1 fall with injury or currently using an Ambulatory Assistive Device (Walker, Cane, Wheelchair, Crutches, etc.)? No PATIENT GENDER DATA: Male PATIENT RELEVANT IMPLANT DATA REVIEWED: Not Applicable RADIOLOGY DEPARTMENT: General X-ray: Exam(s) Completed: Chest X-Ray PERIPHERAL IV DATA: Not applicable SIGNED BY: RT More(R) July 24, 2021 12:32 PM documented in this encounterHolmes County [facility]05-24-2022 Instructions* Patient Instructions* Jens Bae MD - 07/24/2021 11:04 AM EDT - It was a pleasure to meet you in clinic today! - I think we have room to tune you up further (taking some extra fluid off and escalating your heart failure medication) but I am OK with proceeding to surgery in the next few days documented in this encounterHolmes County [facility]05[facility] History of Present illness Narrative* Jens Bae MD - 07/24/2021 10:15 AM EDT Images from the original note were not included. Heart and Vascular [facility] SECTION OF HEART FAILURE and CARDIAC TRANSPLANT MEDICINE OUTPATIENT VISIT DATE July 24, 2021 OUTPATIENT VISIT TYPE NEW PRIMARY CARE PHYSICIAN: Macy Barcenas [address] [place] [address] CHIEF COMPLAINT: Pre-operative evaluation NURSING INTAKE (Patient s concerns and/or recent hospitalizations/ER visits): Ada June is a 75 year old male from [place], [place] here today for cardiovascular evaluation related to ischemic cardiomyopathy; evaluation prior to surgery. Referred by Dr. Ramirez for HF evaluation prior to 07/27/21 surgery: Case reviewed. 75yo M with CAD, ICM, HFrEF, AF. LHC shows severe 3 vessel disease with good targets. ECHO shows EF 25% with mild MR and TR. BMI 26. S/p bilateral CEA. Ok to schedule for Coronary Artery Bypass+Maze +/- Mitral Valve Repair/TVrepair possible Impella assist. Will need non contrast chest CT, [facility] echo, PET viability, PFTs, JOSÉ/PVR, vein map, and RHC. Will also need HF cards evaluation. Likely good candidate for Coronary Artery Bypass and will not needadvanced therapies. HF Nursing Assessment: Interim Hospitalizations and/or ER visits: No Chest Pain: No Skipping or irregular heartbeats: No Shortness of breath at rest: No Shortness of breath with activity: Yes Cough: Yes Waking up in the middle of the night gasping for air: No but sleeps in a recliner Lightheadedness or dizziness: On rare occasions Feeling like you are going to pass out: No Actually passing out: No Poor energy level: Yes Unintentional weight gain: Yes Unintentional weight loss: No Swelling in your legs,feet, abdomen: Yes Filling up quickly when you eat: No HISTORY OF PRESENT ILLNESS: Mr. Jnue is a 75 year old man with a past medical history most notable for DM2, HTN, HLD, CAD with ensuant recently diagnosed ischemic cardiomyopathy (LVEF 25%), and atrial fibrillation now presenting for pre-operative evaluation prior to CABG with Dr. Ramirez. He has a longstanding history of high blood pressure and a more recent diagnosis of diabetes 3-4 years ago, but despite this was in his usual state of health until early this year when he presented to his primary care physician for an annual wellness check and was told he had a heart murmur. He hadbeen previously active and engaged in activities such as yardwork without limitation by fatigue or dyspnea, and has a flight of stairs in the house which he could ascend without dyspnea or slowing. His only complaint over this time frame was of occasional lower extremity edema beginning in late 2020. In early May, however, he awoke and didn't feel right; he likens this to a sensation of bronchitis. He began to notice more exertional dypsnea when ascending the same flight of stairs. He reachedout to his primary care physician and was routed to an urgent care facility and was treated with analbuterol inhaler for presumptive bronchospasm. He did not improve with this and [facility] thought he appeared to be volume overloaded and initiated him on furosemide and potassium chloride and he reports that he lost 50 pounds shortly thereafter. He unsurprisingly felt clinically markedly improved after this and his breathing improved as well (from roughly NYHA III to NYHA II). In the subsequent workup for this, he underwent echocardiography which showed an LVEF of 25% (globally reduced) with associated 1-2+ MR and largely preserved right ventricular function; he was then referred for LHC and RHC which revealed multivessel disease (mild LMT, 75% pLAD, 75% mLAD, 75% D1, 85% oLCx, and diffuse moderate to severe disease within the RCA). RHC showed an RA of 8, PA of 40/14 (28) with a PCWP of 19 and what appears to be a prominent V wave to ~30, With a Bill index of 3.98 L/min/m2 and a thermo index of 2.26 L/min/2. His current heart failure medical regimen is relatively minimal - he is on carvedilol 6.25mg BID, sacubitril/valsartan 24/26mg. PAST MEDICAL HISTORY Diagnosis Date Atrial fibrillation (HCC) Benign neoplasm of colon CAD (coronary artery disease) Cardiomyopathy (HCC) Carotid stenosis Congestive heart failure (HCC) Depressive disorder Diabetes mellitus (HCC) Diabetic neuropathy (HCC) Family history of malignant neoplasm of gastrointestinal tract GERD (gastroesophageal reflux disease) Hepatitis CHILD Herniated disc L4-5 HTN (hypertension), benign Hydronephrosis Hyperlipidemia Macular degeneration RIGHT EYE Migraine, unspecified, with intractable migraine, so stated, without mention of status migrainosus [id number] X 8YRS Mitral valve regurgitation Tricuspid valve regurgitation PAST SURGICAL HISTORY Procedure Laterality Date ARTERY X-RAYS, NECK 01-10-09 ARTHROSCOPY KNEE DIAGNOSTIC W/WO SYNOVIAL BX SPX Arthroscopy, knee ARTHRP ACETBLR/PROX FEM PROSTC AGRFT/ALGRFT 11-28-08 Hip replacement, total, left (Dr. Juan Carlos Kemp, [facility]) ARTL CATHJ/CANNULJ MNTR/TRANSFUSION SPX PRQ 01-13-09 COLONOSCOPY FLX DX W/COLLJ SPEC WHEN PFRMD 1997 Colonoscopy COLONOSCOPY FLX DX W/COLLJ SPEC WHEN PFRMD 06/27/08 Colonoscopy COLONOSCOPY FLX DX W/COLLJ SPEC WHEN PFRMD 11-05-13 LAPS RPR INCISIONAL HERNIA NCRC8/STRANGULATED 05-16-11 PAST SURGICAL HISTORY OF bakers cyst removed PAST SURGICAL HISTORY OF umbilical hernia repair PAST SURGICAL HISTORY OF right inguinal hernia repair PAST SURGICAL HISTORY OF RIGHT KNEE ARTHROSCOPIC REPAIR PAST SURGICAL HISTORY OF 11/2010 CYST,URETEOSCOPY,BILATERAL STENT PLACEMENT PAST SURGICAL HISTORY OF Nov 2008 Hip replacement post fracture -- Dr. Juan Carlos Kemp [facility] CATHJ 1ST 2ND ORD [facility] 01-10-09 [facility] CATHJ EA 1ST ORD [facility] 01-10-09 TEAEC W/PATCH GRF CAROTID VERTB SUBCLAV NECK INC 01-13-09 RIGHT TEAEC W/PATCH GRF CAROTID VERTB SUBCLAV NECK INC 05/08/2009 left carotid endarterectomy SOCIAL HISTORY Social History Tobacco Use Smoking status: Former Smoker Years: 40.00 Types: Cigarettes Quit date: 11/27/2008 Years since quittin.6 Smokeless tobacco: Never Used Tobacco comment: SMOKED ANYWHERE BETWEEN 0.5-3 PPD Vaping Use Vaping Use: Never used Substance Use Topics Alcohol use: Not Currently Comment: occ Drug use: No FAMILY HISTORY Problem Relation Age of Onset Breast Cancer Mother Colon Cancer Father diagnosed age 91 Breast Cancer Sister No Known Problems Sister No Known Problems Sister other (other) Brother in infancy Coronary Artery Disease Other none Diabetes Other none Prostate Cancer Other none ALLERGIES: ALLERGIES No Known Allergies CURRENT MEDICATIONS: cholecalciferol (VITAMIN D-3) 5,000 unit tab Take 5,000 Units by mouth once daily. LUTEIN-ZEAXANTHIN ORAL Take 1 capsule by mouth once daily. 07-24-2021: lutein 25 mg-Zeaxanthin 5 mg sacubitril-valsartan (ENTRESTO) 24-26 mg tablet Take 1 tablet by mouth twice daily. amLODIPine (NORVASC) 5 mg tablet Take 5 mg by mouth once daily. carvedilol (COREG) 6.25 mg tablet Take 6.25 mg by mouth twice daily with meals. atorvastatin (LIPITOR) 20 mg tablet Take 20 mg by mouth every evening. warfarin (COUMADIN) 5 mg tablet Take 5 mg by mouth daily as directed. 07-24-2021: on hold since 07-21-2021 but prior was taking 7.5 mg daily. glimepiride (AMARYL) 1 mg tablet Take 1 mg by mouth daily with breakfast. omeprazole 20 mg capsule Take 1 capsule by mouth once daily. REVIEW OF SYSTEMS: CONSTITUTION: Positive for: Recent weight change HEENT: Negative for: Hearing loss, Nosebleeds, Mouth sores, Trouble swallowing, Dry mouth RESPIRATORY: Positive for: Cough and Difficulty breathing GASTROINTESTINAL: Negative for: Melena, Diarrhea, Nausea, Abdominal distension, Early satiety MUSCULOSKELETAL: Positive for: Arthralgias NEUROLOGICAL: Negative for: Headaches, Dizziness SKIN: Positive for: Rash EYES: Positive for: Visual disturbance CARDIOVASCULAR: Positive for: Leg swelling GENITOURINARY: Negative for: Difficulty urinatiing PATIENT ENTERED DATA: No flowsheet data found. No flowsheet data found. No flowsheet data found. PHYSICAL EXAMINATION: BP 132/95 (BP Site: Right Arm, BP Position: Sitting, BP Cuff Size: Regular Adult) Pulse 102 Resp 22 Ht 190.5 cm (6' 3 ) Wt 100.9 kg (222 lb 8 oz) SpO2 96% BMI 27.81 kg/m General: Well appearing, in no acute distress. Skin: No clubbing, no cyanosis. Eyes: Extra ocular movements intact Oropharynx: Teeth in good repair. Neck: JVP 11cm, no carotid bruits, carotids have a normal upstroke, no palpable thyromegaly. Lungs: Clear to auscultation bilaterally, no wheezing or rhonchi. Heart: Regular rhythm, PMI not displaced, S1, S2 normal, no S3, no S4, no heaves, no rub and no murmur. Abdomen: Soft, nontender, bowel sounds normal, no palpable organomegaly, no bruits. Extremities: 2+ peripheral edema to knees . Grade 2/4 distal pulses bilaterally. Neuro: Oriented to person, place and time, alert, cooperative, gait coordinated. CARDIOVASCULAR MEDICINE TESTING: I have personally reviewed the TTE and LHC. 07/24/21 Cardiac PET 07/24/[address] 07/24/21 ECHO 07/25/21 RH 07/26/21 vascular US OSH CATH 06/05/2021 OSH ECHO 05/10/2021 OSH STRESS 05/03/2019 IMPRESSION: NYHA Functional Class: II Stage: C heart failure Target weight: ~210 lbs Mr. June is a 75 year old man with a past medical history most notable for DM2, HTN, HLD, CAD with ensuant recently diagnosed ischemic cardiomyopathy (LVEF 25%), and atrial fibrillation now presenting for pre-operative evaluation prior to CABG with Dr. Ramirez. Overall he appears somewhat volume up but otherwise well compensated; I am reassured by the absenceof significant scar on his PET and without overt wall thinning on echocardiography that he will have a good chance for left ventricular recovery. He would benefit from a little further optimization pre- operatively - as his OR date is on Friday, will begin gentle oral diuresis with a goal of being net negative 5-10 lbs prior to that date (and can formally adjudicate filling pressures at [facility] tomorrow). Once renal function stable after CABG but prior to discharge, would favor initiation of empagliflozin 10mg and MRA with low dose spironolactone (e.g., 12.5mg) Of note, he does appear to have at least moderate aortic stenosis - suspect a component of this is pseudostenosis from his diminished stroke volume but there is also moderate calcification of his leaflets. Addressing this up front would certainly add complexity and extend his intra-operative time -would obtain TAMERA intra-operatively and I will defer to surgical opinion whether we should pursue AVR concomitantly at this time or delay and have TAVR evaluation down the road. Heart Failure specific medications (list current, note updates or changes, note prior intolerance): BB: Carvedilol 6.25mg PO BID ACEI/ARB/ARNI: Sacubitril/valsartan 24/26mg MRA: None yet - recommend starting inpatient after surgery if renal function stable SGLT2: None yet - recommend starting inpatient after surgery if renal function stable Diuretic: Start torsemide 20mg daily now Digoxin: NA Vasodilators: NA Anti-arrhythmics: NA Ivabradine: NA Other anti-HTN: NA PLAN AND RECOMMENDATIONS: Chronic systolic HF / ICM CAD - Continue GDMT initiation as outlined above - Warm, well perfused on examination - formally assess indices tomorrow but do not anticipate need for tMCS at time of surgery - Agree with proceeding to CABG with consideration for TVr and MVr, +/- AVR concomitantly at time of surgery. - Continue atorvastatin, repeat lipids now I personally interviewed, confirmed and edited the above information as obtained by others I personally spent 65 minutes in total time involved in the management and care of this patient. Wediscussed natural history of disease, current treatment options, and future potential treatment options. We discussed diet, exercise, other non-medical management as above. Jens Bae MD [facility] Section Of Heart Failure and Cardiac Transplant Medicine Heart and Vascular [place] [facility] Desk [id number] [place] [address] documented in this encounterHolmes County [facility]05-24-2022 History of Present illness Narrative* Sheree Alberts RN - 07/24/2021 7:00 AM EDT RADIOLOGY SERVICE PROGRESS NOTE SERVICE DATE: 07/24/2021 SERVICE TIME: 7:26 AM PATIENT IDENTITY VERIFICATION COMPLETED USING TWO (2) STANDARD IDENTIFIERS: Name and Date of confirmed by patient verbally and Name and Date of confirmed by identification band PATIENT GENDER DATA: male ALLERGIES: Reviewed and unchanged MEDICATIONS REVIEWED BY: Carpenter Assembler and Sheree Alberts RN PROCEDURE TYPE: NM PET Myocardial Imagin.4 mg of Regadenoson was administered at 0752 over 10 Seconds. Reversal agent used: None. and NM PET Myocardial Action Taken: POCT Blood Glucose 94 mg/dL at 0706 (QC = OK). 12.5 gms Dextrose 50 administered IV at 0708. No viability per Dr. Sorenson IV SITE: Ambulatory: A peripheral IV was started in the Right antecubital site with a Angio cath: 20 gauge. and A Saline lock was inserted per protocol POST EXAM PIV STATUS: Discontinued PATIENT DISCHARGED TO: Ambulatory patient, left [place] department area. A Diagnostic radioactive procedure has taken place, with no further precautions necessary other than routine body substance precautions. More information regarding radiation safety can be found usingthis link: [email or web address] SIGNATURE: Sheree Alberts RN PATIENT NAME: Ada June DATE: July 24, 2021 TIME: 7:26 AM PAGER/CONTACT #: * RT Alireza(R) - 07/24/2021 7:00 AM EDT RADIOLOGY SERVICE PROGRESS NOTE SERVICE DATE: 07/24/2021 SERVICE TIME: 7:38 AM PATIENT IDENTITY VERIFICATION COMPLETED USING TWO (2) STANDARD IDENTIFIERS: Name and Date of confirmed by patient verbally FALL SCREENING: Has the patient had 2 falls in the last year or 1 fall with injury or currently using an Ambulatory Assistive Device (Walker, Cane, Wheelchair, Crutches, etc.)? No PATIENT GENDER DATA: .male ALLERGIES: Reviewed and unchanged MEDICATIONS REVIEWED: Yes PATIENT RELEVANT IMPLANT DATA REVIEWED: Not Applicable CREATININE: Creatinine Date Value Ref Range Status 03/13/2012 0.96 0.70 - 1.40 mg/dL Final 09/16/2011 1.15 0.7 - 1.4 mg/dL Final 12/28/2010 1.14 0.7 - 1.4 mg/dL Final eGFR-All Other Races Date Value Ref Range Status 03/13/2012 >60 . Final Comment: eGFR (Estimated GFR) Units of measure: mL/min/1.73 meters squared eGFR is derived from the reexpressed MDRD Study equation using the following parameters: serum creatinine, age, gender and race. The creatinine assay has been calibrated to be traceable to IDMS. An eGFR <60 mL/min/1.73m2 for >3 months is consistent with chronic kidney disease. Refer to KDOQI guidelines for clinical interpretation. eGFR- Date Value Ref Range Status 03/13/2012 >60 Final P.O.C.T. RESULTS: POC done: Yes, See Lab Tab July 24, [address] PERFORMED: No IV SITE: Ambulatory: A peripheral IV was started in the Right antecubital site with a Angio cath: 20 gauge. POST EXAM PIV STATUS: Discontinued PROCEDURE TYPE: GA PET Myocardial Imagin.3 mCi Rb-82(Rubidium) was administered IV for Rest Imaging at 0735. 30.1 mCi Rb-82(Rubidium) was administered IV for Stress Imaging at 0753. Viability Imaging performed: No per Dr. Yip. PATIENT DISCHARGED TO: Ambulatory patient, left [place] department area. A Diagnostic radioactive procedure has taken place, with no further precautions necessary other than routine body substance precautions. More information regarding radiation safety can be found usingthis link: [email or web address] SIGNATURE: RT Alireza(Mina) PATIENT NAME: Ada June DATE: July 24, 2021 TIME: 7:38 AM PAGER/CONTACT #: documented in this encounterHolmes County [facility]05-[facility] Miscellaneous Notes* Telephone Encounter - Kiley Dudley RN - 07/17/2021 4:14 PM EDT CARE CONTINUUM ADVISOR ASSESSMENT PRIMARY CARE PHYSICIAN: Macy Barcenas MD OR Surgery Date:07/27/21 [facility]CI Appointment:07/25/21 Health Insurance: [facility] Medicare Financial Resources: Retired Primary Contact: Extended Emergency Contact Information Primary Emergency Contact: SladeGiovanniRadha Address: [address] [address] [place] Relation: Spouse Secondary Emergency Contact: Sonia Diop Relation: Daughter Other Important Patient Contacts: None 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 Yes, requested copies for chart -The one in [facility] is not current- had a stroke changed to son Vishal June. Does Patient Have Concerns About Advance Directives? No Education Provided: Yes, will bring copy SOCIAL: Living Arrangement: Home Lives With: Spouse Stairs: One story home 2-4 stairs to enter home Do you have any concerns with food and/or affording food?: No Do you have reliable transportation to and from surgery/appointments?:Yes, son Vishal June will provide transportation. Medication Adherence: Do you have any concerns with your prescription medication?: No Who do you use for pharmacy?: [address] [phone] - [address] [place] [phone] Pre-Hospital Baseline Mental Status: Alert & Oriented Informant: Self What is your current functional status?: Perform ADLs independently , patient is the Caregiver for his . Equipment: Do you currently use any equipment at home for your medical condition or to help you get around? Cane - Straight Crutches Hand Held Shower Tub bench/chair Walker Wheelchair Rollator Active Services/Needs: None Do you have a community development aide contact through your insurance or [employer]?: No Has the Patient Been in a Jail Facility in the Past 30 days? No FREEDOM OF CHOICE: Level of Care Discussed: Home Care, Jail Facility, Inpatient Rehab Facility and Cardiac Rehab Financial Disclosure Provided: No Financial Disclaimer Provided: Yes, regarding pre-cert / insurance authorization Provider List: Home Care, Rehab Facility and Jail Facility Provider list within the patient's requested geographic area shared with the patient/family: Yes - Within [address] of [address] [place] [address] Provider Choices Collected Acute Rehab: 1. [facility] Home Health: 1. [facility] At home Jail: 1. [facility] SNF Interventions: Discussed importance of active PCP relationship and follow up Discussed insurance risks, gaps, and programs available Advanced Directives Education Discussed reliable transportation needs for surgery and follow up appointments Discussed prescription medications adherence Plan to go to Cardiac Rehab if needed. Kiley Dudley RN documented in this encounterHol[facility] Miscellaneous Notes* Telephone Encounter - Arelis Bass RN - 06/25/2021 1:44 PM EDT Records reviewed by Dr. Ramirez who wishes to offer surgery. Spoke with patient and offered surgical date of 07/27 which he has accepted. Cardiac Surgery PreOp Checklist Patient Name: Ada June OR Surgery Date: 07/27 [facility] Appt. Date: 07/26 Primary Care Provider: Macy Barcenas MD Definition Comments Diabetes/Insulin Pump A1-c and Endo consult (need for pump pt) Hgb A1C ordered. Hypothyroid/thyroid nodules TSH/US of thyroid if new nodule n/a Stroke (CVA) Neurology consult n/a Dysphagia, stricture w/no recent dilation, Cartagena's Esophagus GI consult n/a Von Willebrand/thrombocytopenia/ Blood... Hematology consult n/a Abnormal labs from outside Place any necessary consults n/a Cardiac Cath Correct birthday/include all images/moving if outside cath Right heart cath ordered. Outside cath from [place] for surgery. Redo OHS/Robotic surgery/radiation to chest CT or CTA/if outside CT will need in-house CXR, CardiacMRI ordered Mechanical valve Admit for Heparin/Lovenox bridge n/a Female <50 y/o HCG n/a Heparin allergy hx of HIT Vascular Medicine consult n/a Nickel/Metal allergy Dermatology consult n/a Breast implants/Robotic candidates Plastic Surgery consult n/a Urinary strictures Urology consult/Urology consult to OR n/a All stimulators/spinal stimulator Type of stimulator n/a PPM/AICD Device check n/a Valve/TAVR/TEVAR/Myectomy/ascending aorta Dental clearance/Dental Consult at [facility] Patient is edentulous and will not require dental clearance. CABG surgery with previous CABG/varicose vein/vein stripping Leg vein mapping ordered LMT disease > 30% or Carotid Bruits Carotid ultrasound ordered Descending Aneurysm/TEVAR/TAA Pre-admit/hydration/spinal drain to be placed: IR/OR/Not Needed n/a Dialysis patient IHD day prior to OHS n/a CABG with no ECHO results Discussion w/surgeon results for dental clearance: preop/postop n/a Advanced Directives Instructions given to patient n/a FMLA Forward to AA n/a Test/Consult not needed Communicate in Epic or Access n/a Record of decreased PFTs, known lung disease Any pulmonary consult n/a Pulmonary embolectomy Needs US/Duplex BLE, VQ scan RHC, possible LHC, Pulmonary and/or Vascular consult n/a Abnormal CT All>1cm if further workup/consult needed n/a [employer]itory Notification of packet and general knowledge given to pt n/a * Telephone Encounter - Venkata Ramirez MD - 06/21/2021 10:59 AM EDT Case reviewed. 75yo M with CAD, ICM, HFrEF, AF. LHC shows severe 3 vessel disease with good targets. ECHO shows EF 25% with mild MR and TR. BMI 26. S/p bilateral CEA. Ok to schedule for Coronary Artery Bypass+Maze +/- Mitral Valve Repair/TVrepair possible Impella assist. Will need non contrast chest CT, [facility] echo, PET viability, PFTs, JOSÉ/PVR, vein map, and RHC. Will also need HF cards evaluation. Likely good candidate for Coronary Artery Bypass and will not needadvanced therapies. * Telephone Encounter - Yanira Ortiz - 06/12/2021 2:29 PM EDT Records in [facility] Cath 06/05/21 in [facility] TTE - 05/10/21 in [facility] Stress Echo - 05/2019 in [facility] documented in this encounterHol[facility]04[facility] Miscellaneous Notes* Telephone Encounter - Sheree Mccollum - 06/12/2021 1:51 PM EDT [place] documented in this encounterHol[facility]04[facility] Miscellaneous Notes* Telephone Encounter - Abiola Hooker - 06/12/2021 1:[address] Knight has reviewed the available records and is referring this patient to Dr. Ramirez. Spokewith patient and he is agreeable. Explained process for that team to review and reach out to patient. Encouraged him to call back with any questions in the interim. Abiola Hooker RN documented in this encounterHolmes [facility]09[facility] History of Past illness Narrative* Problem Noted Date Resolved Date Hydronephrosis 11/02/2010 10/02/2011 Overview: Dr. Lex Gil, [facility] -> bilateral ureteral stent placement on 11/13/10, and bilateral ureterolysis with omental wrap on 12/18/10. Pathology revealed benign tissue Acute renal insufficiency 10/05/20102011 Overview: Creatinine suddenly 2.8 as of October 2010 -- priors normal, last done spring 2009 Family history of malignant neoplasm of gastrointestinal tract 05/27/2008 09/12/2009 documented as of this encounter (statuses as of 06/11/2021) [facility] History of Past illness Narrative* Problem Noted Date Resolved Date Hydronephrosis 11/02/2010 10/02/2011 Overview: Dr. Lex Gil, [facility] -> bilateral ureteral stent placement on 11/13/10, and bilateral ureterolysis with omental wrap on 12/18/10. Pathology revealed benign tissue Acute renal insufficiency 10/05/20102011 Overview: Creatinine suddenly 2.8 as of October 2010 -- priors normal, last done spring 2009 Family history of malignant neoplasm of gastrointestinal tract 05/27/2008 09/12/2009 documented as of this encounter (statuses as of 06/12/2021) [facility] of Past illness Narrative* Problem Noted Date Resolved Date Hydronephrosis 11/02/2010 10/02/2011 Overview: Dr. Lex Gil, [facility] -> bilateral ureteral stent placement on 11/13/10, and bilateral ureterolysis with omental wrap on 12/18/10. Pathology revealed benign tissue Acute renal insufficiency 10/05/20102011 Overview: Creatinine suddenly 2.8 as of October 2010 -- priors normal, last done spring 2009 Family history of malignant neoplasm of gastrointestinal tract 05/27/2008 09/12/2009 documented as of this encounter (statuses as of 06/25/2021) [facility] of Past illness Narrative* Problem Noted Date Resolved Date Hydronephrosis 11/02/2010 10/02/2011 Overview: Dr. Lex Gil, [facility] -> bilateral ureteral stent placement on 11/13/10, and bilateral ureterolysis with omental wrap on 12/18/10. Pathology revealed benign tissue Acute renal insufficiency 10/05/20102011 Overview: Creatinine suddenly 2.8 as of October 2010 -- priors normal, last done spring 2009 Family history of malignant neoplasm of gastrointestinal tract 05/27/2008 09/12/2009 documented as of this encounter (statuses as of 07/17/2021) [facility] of Past illness Narrative* Problem Noted Date Resolved Date Hydronephrosis 11/02/2010 10/02/2011 Overview: Dr. Lex Gil, [facility] -> bilateral ureteral stent placement on 11/13/10, and bilateral ureterolysis with omental wrap on 12/18/10. Pathology revealed benign tissue Acute renal insufficiency 10/05/20102011 Overview: Creatinine suddenly 2.8 as of October 2010 -- priors normal, last done spring 2009 Family history of malignant neoplasm of gastrointestinal tract 05/27/2008 09/12/2009 documented as of this encounter (statuses as of 07/24/2021) [facility] of Past illness Narrative* Problem Noted Date Resolved Date Hydronephrosis 11/02/2010 10/02/2011 Overview: Dr. Lex Gil, [facility] -> bilateral ureteral stent placement on 11/13/10, and bilateral ureterolysis with omental wrap on 12/18/10. Pathology revealed benign tissue Acute renal insufficiency 10/05/20102011 Overview: Creatinine suddenly 2.8 as of October 2010 -- priors normal, last done spring 2009 Family history of malignant neoplasm of gastrointestinal tract 05/27/2008 09/12/2009 documented as of this encounter (statuses as of 07/25/2021) [facility] of Past illness Narrative* Problem Noted Date Resolved Date Hydronephrosis 11/02/2010 10/02/2011 Overview: Dr. Lex Gil, [facility] -> bilateral ureteral stent placement on 11/13/10, and bilateral ureterolysis with omental wrap on 12/18/10. Pathology revealed benign tissue Acute renal insufficiency 10/05/20102011 Overview: Creatinine suddenly 2.8 as of October 2010 -- priors normal, last done spring 2009 Family history of malignant neoplasm of gastrointestinal tract 05/27/2008 09/12/2009 documented as of this encounter (statuses as of 07/25/2021) [facility] of Past illness Narrative* Problem Noted Date Resolved Date Hydronephrosis 11/02/2010 10/02/2011 Overview: Dr. Lex Gil, [facility] -> bilateral ureteral stent placement on 11/13/10, and bilateral ureterolysis with omental wrap on 12/18/10. Pathology revealed benign tissue Acute renal insufficiency 10/05/20102011 Overview: Creatinine suddenly 2.8 as of October 2010 -- priors normal, last done spring 2009 Family history of malignant neoplasm of gastrointestinal tract 05/27/2008 09/12/2009 documented as of this encounter (statuses as of 07/25/2021) [facility] of Past illness Narrative* Problem Noted Date Resolved Date Hydronephrosis 11/02/2010 10/02/2011 Overview: Dr. Lex Gil, [facility] -> bilateral ureteral stent placement on 11/13/10, and bilateral ureterolysis with omental wrap on 12/18/10. Pathology revealed benign tissue Acute renal insufficiency 10/05/20102011 Overview: Creatinine suddenly 2.8 as of October 2010 -- priors normal, last done spring 2009 Family history of malignant neoplasm of gastrointestinal tract 05/27/2008 09/12/2009 documented as of this encounter (statuses as of 07/25/2021) [facility] of Past illness Narrative* Problem Noted Date Resolved Date Hydronephrosis 11/02/2010 10/02/2011 Overview: Dr. Lex Gil, [facility] -> bilateral ureteral stent placement on 11/13/10, and bilateral ureterolysis with omental wrap on 12/18/10. Pathology revealed benign tissue Acute renal insufficiency 10/05/20102011 Overview: Creatinine suddenly 2.8 as of October 2010 -- priors normal, last done spring 2009 Family history of malignant neoplasm of gastrointestinal tract 05/27/2008 09/12/2009 documented as of this encounter (statuses as of 07/25/2021) [facility] of Past illness Narrative* Problem Noted Date Resolved Date Hydronephrosis 11/02/2010 10/02/2011 Overview: Dr. Lex Gil, [facility] -> bilateral ureteral stent placement on 11/13/10, and bilateral ureterolysis with omental wrap on 12/18/10. Pathology revealed benign tissue Acute renal insufficiency 10/05/20102011 Overview: Creatinine suddenly 2.8 as of October 2010 -- priors normal, last done spring 2009 Family history of malignant neoplasm of gastrointestinal tract 05/27/2008 09/12/2009 documented as of this encounter (statuses as of 07/25/2021) [facility] of Past illness Narrative* Problem Noted Date Resolved Date Hydronephrosis 11/02/2010 10/02/2011 Overview: Dr. Lex Gil, [facility] -> bilateral ureteral stent placement on 11/13/10, and bilateral ureterolysis with omental wrap on 12/18/10. Pathology revealed benign tissue Acute renal insufficiency 10/05/20102011 Overview: Creatinine suddenly 2.8 as of October 2010 -- priors normal, last done spring 2009 Family history of malignant neoplasm of gastrointestinal tract 05/27/2008 09/12/2009 documented as of this encounter (statuses as of 07/26/2021) [facility] of Past illness Narrative* Problem Noted Date Resolved Date Hydronephrosis 11/02/2010 10/02/2011 Overview: Dr. Lex Gil, [facility] -> bilateral ureteral stent placement on 11/13/10, and bilateral ureterolysis with omental wrap on 12/18/10. Pathology revealed benign tissue Acute renal insufficiency 10/05/20102011 Overview: Creatinine suddenly 2.8 as of October 2010 -- priors normal, last done spring 2009 Family history of malignant neoplasm of gastrointestinal tract 05/27/2008 09/12/2009 documented as of this encounter (statuses as of 07/26/2021) [facility] of Past illness Narrative* Problem Noted Date Resolved Date Hydronephrosis 11/02/2010 10/02/2011 Overview: Dr. Lex Gil, [facility] -> bilateral ureteral stent placement on 11/13/10, and bilateral ureterolysis with omental wrap on 12/18/10. Pathology revealed benign tissue Acute renal insufficiency 10/05/20102011 Overview: Creatinine suddenly 2.8 as of October 2010 -- priors normal, last done spring 2009 Family history of malignant neoplasm of gastrointestinal tract 05/27/2008 09/12/2009 documented as of this encounter (statuses as of 07/26/2021) [facility] of Past illness Narrative* Problem Noted Date Resolved Date Hydronephrosis 11/02/2010 10/02/2011 Overview: Dr. Lex Gil, [facility] -> bilateral ureteral stent placement on 11/13/10, and bilateral ureterolysis with omental wrap on 12/18/10. Pathology revealed benign tissue Acute renal insufficiency 10/05/20102011 Overview: Creatinine suddenly 2.8 as of October 2010 -- priors normal, last done spring 2009 Family history of malignant neoplasm of gastrointestinal tract 05/27/2008 09/12/2009 documented as of this encounter (statuses as of 07/27/2021) [facility] note* Diagnosis Cardiomyopathy, ischemic- Primary Other specified forms of chronic ischemic heart disease Controlled type 2 diabetes mellitus without complication, unspecified whether ad terminal makeup operator insulin use (HCC) Shortness of breath Heart disease Heart disease, unspecified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 of Machine Installer 06/17/2023 10:55 AM Advance Directives and Livin g Will 06/17/2023 10:55 AM Latest Code Status on File Code Status Date Activated Date Inactivated Comments Full Code 06/13/2023 10:39 AM 06/13/2023 4:31 PM Code Status History Code Status Date Activated Date Inactivated Comments Full Code 01/06/2023 10:26 PM 01/15/2023 2:24 PM Date Activated Date Inactivated Comments 11/05/2023 9:42 PM Question Answer Comments Plan of Care: Code Status Discussion Completed Decision Maker: Patient Date Activated Date Inactivated Comments 11/05/2023 9:39 PM 11/05/2023 9:42 PM Question Answer Comments Plan of Care: Code Status Discussion Completed Decision Maker: Patient Date Activated Date Inactivated Comments 05/16/2023 12:31 AM 11/05/2023 9:39 PM Question Answer Comments Plan of Care: Code Status Discussion Completed Decision Maker: Patient Medications Administered Section Inactive Administered Medications - up to 3 most recent administrations Medication Order MAR Action Action Date Dose Rate Site dextrose 50 % 12.5 g injection 12.5 g, INTRAVENOUS, ONCE, 1 dose, On Fri07/24/21 at 0830, - NONCYTOTOXIC VESICANT - Given 07/24/2021 7:08 AM EDT 12.5 g Reason for Referral Specialty Diagnoses / Procedures Referred By Joanna slade Referred To Contact CT IMAGING Diagnoses Other chest pain Procedures CTA CHEST (GATED) W IVCON CT ANGIOGRAPHY CHEST W/CONTRAST/NONCONTRAST Jens Bae MD [address] [place] [address] Ct Imaging Referral ID Status Reason Start Date Expiration Date Visits Requested Visits Authorized [id number] Authorized Auto-Generat ed Referral Patient Cleared - Admin/Chairm an/Director advise to proceed 07/25/2021 09/23/2021 1 1 Specialty Diagnoses / Procedures Referred By Joanna slade Referred To Contact CT IMAGING Diagnoses Other chest pain Procedures CTA ABD/PEL W IVCON CT ANGIO ABD&PLVIS CNTRST MTRL W/WO CNTRST Jens Bell MD [address] [place] [address] Ct Imaging Referral ID Status Reason Start Date Expiration Date Visits Requested Visits Authorized [id number] Authorized Auto-Generat ed Referral Patient Cleared - Admin/Chairm an/Director advise to proceed 07/25/2021 09/23/2021 1 1 Health Concerns Infection Onset Date Last Indicated Resolved Time COVID-19 Rule-Out 07/26/2021 07/26/2021 07/26/2021 3:27 PM EDT Summary Purpose Family History No Family History Records FoundNo Family History Records FoundNo Family History Records FoundNo Family History Records FoundNo Family History Records FoundNo Family History Records FoundNo Family History Records FoundNo Family History Records FoundNo Family History Records Found Additional Source Comments Source Comments (unrecognize d section and content) In the event this informatio n is protected by the Federal Confidentiality of Alcohol and Drug Abuse Patient Records regulations: The Federal rules restrict any use of the information to criminally investigate or prosecute any alcohol or drug abuse patient.[facility] the event this information is protected by the Federal Confidentiality of Alcohol and Drug Abuse Patient Records regulations: The Federal rules restrict any use of the information to criminally investigate or prosecute any alcohol or drug abuse patient.[facility] the event this information is protected by the Federal Confidentiality of Alcohol and Drug Abuse Patient Records regulations: The Federal rules restrict any use of the information to criminally investigate or prosecute any alcohol or drug abuse patient.[facility] the event this information is protected by the Federal Confidentiality of Alcohol and Drug Abuse Patient Records regulations: The Federal rules restrict any use of the information to criminally investigate or prosecute any alcohol or drug abuse patient.[facility] the event this information is protected by the Federal Confidentiality of Alcohol and Drug Abuse Patient Records regulations: The Federal rules restrict any use of the information to criminally investigate or prosecute any alcohol or drug abuse patient.[facility] the event this information is protected by the Federal Confidentiality of Alcohol and Drug Abuse Patient Records regulations: The Federal rules restrict any use of the information to criminally investigate or prosecute any alcohol or drug abuse patient.[facility] the event this information is protected by the Federal Confidentiality of Alcohol and Drug Abuse Patient Records regulations: The Federal rules restrict any use of the information to criminally investigate or prosecute any alcohol or drug abuse patient.[facility] the event this information is protected by the Federal Confidentiality of Alcohol and Drug Abuse Patient Records regulations: The Federal rules restrict any use of the information to criminally investigate or prosecute any alcohol or drug abuse patient.[facility] the event this information is protected by the Federal Confidentiality of Alcohol and Drug Abuse Patient Records regulations: The Federal rules restrict any use of the information to criminally investigate or prosecute any alcohol or drug abuse patient.[facility] the event this information is protected by the Federal Confidentiality of Alcohol and Drug Abuse Patient Records regulations: The Federal rules restrict any use of the information to criminally investigate or prosecute any alcohol or drug abuse patient.[facility] the event this information is protected by the Federal Confidentiality of Alcohol and Drug Abuse Patient Records regulations: The Federal rules restrict any use of the information to criminally investigate or prosecute any alcohol or drug abuse patient.[facility] Hospital[facility] the event this information is protected by the Federal Confidentiality of Alcohol and Drug Abuse Patient Records regulations: The Federal rules restrict any use of the information to criminally investigate or prosecute any alcohol or drug abuse patient.[facility] Hospital[facility] the event this information is protected by the Federal Confidentiality of Alcohol and Drug Abuse Patient Records regulations: The Federal rules restrict any use of the information to criminally investigate or prosecute any alcohol or drug abuse patient.[facility] Hospital[facility] the event this information is protected by the Federal Confidentiality of Alcohol and Drug Abuse Patient Records regulations: The Federal rules restrict any use of the information to criminally investigate or prosecute any alcohol or drug abuse patient.[facility] Hospital[facility] the event this information is protected by the Federal Confidentiality of Alcohol and Drug Abuse Patient Records regulations: The Federal rules restrict any use of the information to criminally investigate or prosecute any alcohol or drug abuse patient.[facility] Hospital[facility] the event this information is protected by the Federal Confidentiality of Alcohol and Drug Abuse Patient Records regulations: The Federal rules restrict any use of the information to criminally investigate or prosecute any alcohol or drug abuse patient.[facility] HospitalIn the event this information is protected by the Federal Confidentiality of Alcohol and Drug Abuse Patient Records regulations: The Federal rules restrict any use of the information to criminally investigate or prosecute any alcohol or drug abuse patient.[facility] HospitalIn the event this information is protected by the Federal Confidentiality of Alcohol and Drug Abuse Patient Records regulations: The Federal rules restrict any use of the information to criminally investigate or prosecute any alcohol or drug abuse patient.[facility] HospitalIn the event this information is protected by the Federal Confidentiality of Alcohol and Drug Abuse Patient Records regulations: The Federal rules restrict any use of the information to criminally investigate or prosecute any alcohol or drug abuse patient.[facility] Reason for Visit (unrecogniz ed section and content) Reason Comments Request Outside Medical Records Reason Comments Insurance Inquiry Reason Comments Case Review Reason Comments Cardiac Preop Checklist Reason Comments Care Coordination Care Continuum Advis or Assessment Reason Comments Patient Education Reason Comments Radiology CT Specialty Diagnoses / Procedures Referred By Contac t Referred To Contact CT IMAGING Diagnoses Cardiomyopathy, ischemic Controlled type 2 diabetes mellitus without complication, unspecified whether ad terminal makeup operator insulin use (HCC) Shortness of breath Heart disease Pre-operative cardiovascular examination Atherosclerosis of coronary artery of [place] heart, unspecified vessel or lesion type, unspecified whether angina present 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 Procedures CT CHEST CARDIAC WO IVCON DIAGNOSTIC COMPUTED TOMOGRAPHY THORAX W/O Venkata Dial MD [address] [place] [address] Ct Imaging Referral ID Status Reason Start Date Expiration Date V isits Requested Visits Authorized [id number] Closed Auto-Generate d Referral 07/11/2021 09/10/2021 1 1 Reason Comments Radio Main J1 Reason Comments Radiology [place] Specialty Diagnoses / Procedures Referred By Contact Referred To Contact MOLECULAR & FUNCTIONAL IMAGING Diagnoses Cardiomyopathy, ischemic Controlled type 2 diabetes mellitus without complication, unspecified whether ad terminal makeup operator insulin use (HCC) Shortness of breath Heart disease Pre-operative cardiovascular examination Atherosclerosis of coronary artery of [place] heart, unspecified vessel or lesion type, unspecified whether angina present 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 Procedures NM PET/CT CARDIAC VIABILITY MYOCRD IMG PET PRFUJ W/METAB 2RTRACER CNCRNT CT Venkata Ramirez MD [address] [place] [address] Molecular & Functional Imaging [address] [place] [address] Referral ID Status Reason Start Date Expiration Date V isits Requested Visits Authorized [id number] Closed Auto-Generate d Referral 07/11/2021 09/14/2021 1 1 Specialty Diagnoses / Procedures Referred By Contac t Referred To Contact Cardiology Diagnoses Cardiomyopathy, ischemic Controlled type 2 diabetes mellitus without complication, unspecified whether ad terminal makeup operator insulin use (HCC) Shortness of breath Heart disease Pre-operative cardiovascular examination Atherosclerosis of coronary artery of [place] heart, unspecified vessel or lesion type, unspecified whether angina present 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 Procedures CONSULT TO CARDIOLOGY OFFICE/OUTPATIENT [facility] 60-74 MINUTES Venkata Ramirez MD [address] [place] [address] Referral ID Status Reason Start Date Expiration Date Visits Requested Visits Authorized [id number] Pending Review PCP Requested Referral 06/25/2021 06/25/2022 1 1 Reason Comments Spirometry Specialty Diagnoses / Procedures Referred By Trishaac t Referred To Contact [facility] Diagnoses Cardiomyopathy, ischemic Controlled type 2 diabetes mellitus without complication, unspecified whether ad terminal makeup operator insulin use (HCC) Shortness of breath Heart disease Pre-operative cardiovascular examination Atherosclerosis of coronary artery of [place] heart, unspecified vessel or lesion type, unspecified whether angina present 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 Procedures SPIROMETRY BASELINE ONLY SPMTRY W/VC EXPIRATORY NANY W/WO MXML VOL VNTJ Venkata Ramirez MD [address] [place] [address] [facility] [address] [place] [address] Referral ID Status Reason Start Date Expiration Date V isits Requested Visits Authorized [id number] Closed Auto-Generate d Referral 07/11/2021 03/02/2022 1 1 Specialty Diagnoses / Procedures Referred By Contac t Referred To Contact [facility] Diagnoses Cardiomyopathy, ischemic Controlled type 2 diabetes mellitus without complication, unspecified whether ad terminal makeup operator insulin use (HCC) Shortness of breath Heart disease Pre-operative cardiovascular examination Atherosclerosis of coronary artery of [place] heart, unspecified vessel or lesion type, unspecified whether angina present 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 Procedures LUNG DIFFUSION CAPACITY (DLCO) DIFFUSING CAPACITY Venkata Ramirez MD [address] [place] [address] [facility] [address] [place] [address] Referral ID Status Reason Start Date Expiration Date V isits Requested Visits Authorized [id number] Closed Auto-Generate d Referral 07/11/2021 03/02/2022 1 1 Specialty Diagnoses / Procedures Referred By Joanna t Referred To Contact CT IMAGING Diagnoses Other chest pain Procedures CTA ABD/PEL W IVCON CT ANGIO ABD&PLVIS CNTRST MTRL W/WO CNTRST Jens Bell MD [id number] Imaging Referral ID Status Reason Start Date Expiration Date V isits Requested Visits Authorized [id number] Closed Auto-Generat ed Referral Patient Cleared - Admin/Chairm an/Director advise to proceed 07/25/2021 09/23/2021 1 1 Specialty Diagnoses / Procedures Referred By Joanna t Referred To Contact Diagnoses SDH (subdural hematoma) (HCC) Subdural hematoma Procedures S06.5XAA Adi Ortega MD [address] [place] [address] [address] [place] [address] Referral ID Status Reason Start Date Expiration Date Visits Re quested Visits Authorized [id number] 1 Reason Onset Date Comments Cancelled Appointment 01/20/2023 Reason Comments Post-op Post Op- Bilateral C anastasia. Reason Onset Date Comments Letter for School/Work 01/10/2023 Letter fo r son to be able to go to the bank to pay bills for pt, and will have some overdue bills, says he spoke to someone 01/07/23 and he thinks Catrina Cuevaskhadijah Reason Onset Date Comments Advice Only 01/20/2023 Reason Comments Post-op Incision check Reason Onset Date Comments Surgery Scheduling 03/31/2023 Reason Onset Date Comments office notes 04/04/2023 Reason Comments Shortness of Breath [facility] with SOB. Hypoxic on RA. Reports recently started on oxygen at but prior to this week was not on oxygen. Has hx of CHF with increased peripheral edema over the last 2-3 days, Specialty Diagnoses / Procedures Referred By Contac t Referred To Contact Diagnoses Acute hypoxemic respiratory failure (CMS/HCC) Acute on chronic congestive heart failure, unspecified heart failure type (CMS/HCC) Procedures NO CODED SERVICES ENTERED Tara Sneed MD [address] [place] [address] [address] Referral ID Status Reason Start Date Expiration Date Visits Re quested Visits Authorized [id number] 1 1 Reason Onset Date Comments other 06/12/2023 DNR Specialty Diagnoses / Procedures Referred By Contac t Referred To Contact Diagnoses Traumatic subdural hemorrhage with loss of consciousness status unknown, initial encounter ([facility] Traumatic subdural hemorrhage with loss of consciousness status unknown, initial encounter ([facility]) [S06.5XAA] Procedures SC RMVL BONE FLAP/PROSTHETIC PLATE SKULL REVISION OF RIGHT POSTERIOR CRANIAL WOUND, REMOVAL OF CRANIAL PLATE Ada Willams MD [facility] [place] [address] [facility] Main Or [address] [place] [address] Referral ID Status Reason Start Date Expiration Date Visits Re quested Visits Authorized [id number] 1 1 Reason Comments Post-op po Reason Comments Fall Patient was in his r ollator and fell off. Denies LOC, c/o R shoulder and R hip pain. Care Teams (unrecognized sec tion and content) Juvenile Probation Officer Relationship Specialty Start Date End Date Macy Barcenas MD PCP - General Family Practice 09/29/13 Ada Stone [address] [place] [address] Automotive Paint Technician Cardiology 06/11/21 Juvenile Probation Officer Relationship Specialty Start Date End Date Macy Barcenas MD PCP - General Family Practice 09/29/13 Ada Stone [address] [place] [address] Automotive Paint Technician Cardiology 06/11/21 Juvenile Probation Officer Relationship Specialty Start Date End Date Macy Barcenas MD PCP - General Family Practice 09/29/13 Ada Stone [address] [place] [address] Automotive Paint Technician Cardiology 06/11/21 Juvenile Probation Officer Relationship Specialty Start Date End Date Macy Barcenas MD PCP - General Family Practice 09/29/13 Ada Stone [address] [place] [address] Automotive Paint Technician Cardiology 06/11/21 Jens Bae MD [address] [place] [address] Primary Staff Physician Cardiology 07/24/21 Juvenile Probation Officer Relationship Specialty Start Date End Date Macy Barcenas MD PCP - General Family Practice 09/29/13 Ada Stone Cris [address] [place] [address] Automotive Paint Technician Cardiology 06/11/21 Jens Bae MD [address] [place] [address] Primary Staff Physician Cardiology 07/24/21 Juvenile Probation Officer Relationship Specialty Start Date End Date Macy Barcenas MD PCP - General Family Practice 09/29/13 Ada Stone [address] [address] Automotive Paint Technician Cardiology 06/11/21 Jens Bae MD [address] [place] [address] Primary Staff Physician Cardiology 07/24/21 Juvenile Probation Officer Relationship Specialty Start Date End Date Macy Barcenas MD PCP - General Family Practice 09/29/13 Ada Stone [address] [address] Automotive Paint Technician Cardiology 06/11/21 Jens Bae MD [address] [place] [address] Primary Staff Physician Cardiology 07/24/21 Juvenile Probation Officer Relationship Specialty Start Date End Date Macy Barcenas MD PCP - General Family Practice 09/29/13 Ada Stone [address] [place] [address] Automotive Paint Technician Cardiology 06/11/21 Jens Bae MD [address] [place] [address] Primary Staff Physician Cardiology 07/24/21 Juvenile Probation Officer Relationship Specialty Start Date End Date Macy Barcenas MD PCP - General Family Practice 09/29/13 Ada Stone [address] [address] Automotive Paint Technician Cardiology 06/11/21 Jens Bae MD [address] [place] [address] Primary Staff Physician Cardiology 07/24/21 Juvenile Probation Officer Relationship Specialty Start Date End Date Macy Barcenas MD PCP - General Family Practice 09/29/13 Ada Stone [facility] [address] [address] Automotive Paint Technician Cardiology 06/11/21 Jens Bae MD [address] [place] [address] Primary Staff Physician Cardiology 07/24/21 Juvenile Probation Officer Relationship Specialty Start Date End Date Macy Barcenas MD PCP - General Family Practice 09/29/13 Ada Stone [address] [facility] [address] [address] Automotive Paint Technician Cardiology 06/11/21 Jens Bae MD [address] [place] [address] Primary Staff Physician Cardiology 07/24/21 Juvenile Probation Officer Relationship Specialty Start Date End Date Macy Barcenas MD PCP - General Family Practice 09/29/13 Ada Stone [address] [facility] [address] [place] [address] Automotive Paint Technician Cardiology 06/11/21 Jens Bae MD [address] [place], [place] [phone] Primary Staff Physician Cardiology 07/24/21 Juvenile Probation Officer Relationship Specialty Start Date End Date Mcay Barcenas MD PCP - General Family Practice 09/29/13 Ada Stone [address] [facility] [address] [place] [address] Automotive Paint Technician Cardiology 06/11/21 Jens Bae MD [address] [place] [address] Primary Staff Physician Cardiology 07/24/21 Juvenile Probation Officer Relationship Specialty Start Date End Date Macy Barcenas MD [address] [place], [place] [phone] PCP - General Family Medicine 01/14/22 Juvenile Probation Officer Relationship Specialty Start Date End Date Jenelle Oconnell MD [address] [place] [address] PCP - General Family Medicine 01/06/23 Juvenile Probation Officer Relationship Specialty Start Date End Date Jenelle Oconnell MD [address] [place] [address] PCP - General Family Medicine 01/06/23 Juvenile Probation Officer Relationship Specialty Start Date End Date Jenelle Oconnell MD [address] [place] [phone] PCP - General Family Medicine 01/06/23 Juvenile Probation Officer Relationship Specialty Start Date End Date Jenelle Oconnell MD [address] [place] [phone] PCP - General Family Medicine 01/06/23 Juvenile Probation Officer Relationship Specialty Start Date End Date Jenelle Oconnell MD [address] [place] [phone] PCP - General Family Medicine 01/06/23 Juvenile Probation Officer Relationship Specialty Start Date End Date Jenelle Oconnell MD [address] [place] [phone] PCP - General Family Medicine 01/06/23 Juvenile Probation Officer Relationship Specialty Start Date End Date Jenelle Oconnell MD [address] [place] [phone] PCP - General Family Medicine 01/06/23 Juvenile Probation Officer Relationship Specialty Start Date End Date Jenelle Oconnell MD [address] [place] [phone] PCP - General Family Medicine 01/06/23 Juvenile Probation Officer Relationship Specialty Start Date End Date Jenelle Oconnell MD [address] [place] [phone] PCP - General Family Medicine 01/06/23 Juvenile Probation Officer Relationship Specialty Start Date End Date Jenelle Oconnell MD [facility] [address] [place] [address] PCP - General Family Medicine 01/06/23 Juvenile Probation Officer Relationship Specialty Start Date End Date Donal Hernandez [facility] [address] [place] [phone] PCP - [facility] Medicine 05/15/23 Juvenile Probation Officer Relationship Specialty Start Date End Date Donal Hernandez [facility] [address] [phone] PCP - [facility] Medicine 05/15/23 Juvenile Probation Officer Relationship Specialty Start Date End Date Jenelle Oconnell MD [facility] [address] [place] [phone] PCP - General Family Medicine 01/06/23 Juvenile Probation Officer Relationship Specialty Start Date End Date [facility] [address] [phone] PCP - General Family Medicine 05/15/23 <item> Privacy Markings (unrecogniz ed section and content) Section Author: Yasmin Amaro PROHIBITION ON REDISCLOSURE OF CONFIDENTIAL INFORMATION This notice accompanies a disclosure of information concerning a client made to you with the consent of such client. Scheduled Active and Recently Administ ered Medications (unrecognized section and content) Medication Order 01/16/2022 01/17/2022 01/18/2022 atorvastatin (LIPITOR) tablet 20 mg 20 mg, Oral, Nightly, First dose on Fri01/14/22 at 0215 2115 (Given - Provider: Donal Youngblood, LICHA) 2210 (Given - Provider: Fidelia Oconnor RN) cholecalciferol (vitamin D3) tablet 5,000 Units 5,000 Units, Oral, Daily, First dose on Fri01/14/22 at 0900 0803 (Given - Provider: Eulalia Liu RN) 0956 (Given - Provider: Mago Haji RN) 0944 (Given - Provider: Mago Haji RN) magnesium hydroxide (MOM) 400 mg/5 mL suspension 2,400 mg 2,400 mg (30 mL), Oral, Daily, First dose on Fri01/16/22 at 1230 1159 (Given - Provider: Eulalia Liu RN) 1001 (Given - Provider: Mago Haji RN) 0952 (Given - Provider: Mago Haji RN) metoprolol succinate (TOPROL-XL) 24 hr tablet 12.5 mg (CANCELED) 12.5 mg, Oral, Daily, First dose on Fri01/14/22 at 0900, DO NOT CRUSH OR CHEW. 0803 (Given - Provider: Eulalia Liu RN) 0956 (Given - Provider: Mago Haji RN) metoprolol succinate (TOPROL-XL) 24 hr tablet 12.5 mg (COMPLETED) 12.5 mg, Oral, Once, On Mai 01/17/22 at 1430, For 1 dose, DO NOT CRUSH OR CHEW. 1339 (Given - Provider: Mago Haji RN) metoprolol succinate (TOPROL-XL) 24 hr tablet 25 mg 25 mg, Oral, Daily, First dose (after last modification) on Fri01/18/22 at 0900, DO NOT CRUSH OR CHEW. 0944 (Given - Provider: Mago Haji RN) mirtazapine (REMERON) tablet 15 mg 15 mg, Oral, Nightly, First dose on Fri01/14/22 at 0215 2115 (Given - Provider: Donal Youngblood, RN) 2210 (Given - Provider: Fidelia Oconnor, LICHA) pantoprazole (PROTONIX) EC tablet 40 mg 40 mg, Oral, Daily, First dose on Fri01/14/22 at 0900, DO NOT CRUSH OR CHEW. 0803 (Given - Provider: Eulalia Liu RN) 0957 (Given - Provider: Mago Haji RN) 0944 (Given - Provider: Mago Haji RN) polyethylene glycol (MIRALAX) powder 17 g 17 g, Oral, Daily, First dose on Fri01/16/22 at 1200 1157 (Given - Provider: Eulalia Liu RN) 0957 (Given - Provider: Mago Haji RN) 0944 (Given - Provider: Mago Haji RN) sacubitriL-valsartan (ENTRESTO) 24-26 mg per tablet 1 tablet 1 tablet, Oral, 2 times daily, First dose on Fri01/14/22 at 1100 1157 (Given - Provider: Eulalia Liu RN)2356 (Given - Provider: Donal Youngblood RN) 1132 (Given - Provider: Mago Haji RN)2210 (Given - Provider: Fidelia Oconnor, LICHA) 1056 (Given - Provider: Mago Haji RN) warfarin (COUMADIN) tablet 3 mg (COMPLETED) 3 mg, Oral, Once, On Fri01/16/22 at 1800, For 1 dose, Check INR prior to administration. Notify physician if patient refuses med. CATEGORY D HAZARDOUS DRUG use safe handling precautions. Use reference link to view PPE guidelines. Minimize crushing/splitting only to situations where clinically necessary. P/U LISTED HAZARDOUS DRUG. Dispose of waste in Black Container. 180 (Given - Provider: Eulalia Liu RN) warfarin (COUMADIN) tablet 3 mg (COMPLETED) 3 mg, Oral, Once, On Fri01/17/22 at 1800, For 1 dose, Check INR prior to administration. Notify physician if patient refuses med. CATEGORY D HAZARDOUS DRUG use safe handling precautions. Use reference link to view PPE guidelines. Minimize crushing/splitting only to situations where clinically necessary. P/U LISTED HAZARDOUS DRUG. Dispose of waste in Black Container. 1730 (Given - Provider: Mago Haji, LICHA) warfarin (COUMADIN) tablet 5 mg 5 mg, Oral, Once, On Fri01/18/22 at 1800, For 1 dose, Check INR prior to administration. Notify physician if patient refuses med. CATEGORY D HAZARDOUS DRUG use safe handling precautions. Use reference link to view PPE guidelines. Minimize crushing/splitting only to situations where clinically necessary. P/U LISTED HAZARDOUS DRUG. Dispose of waste in Black Container. PRN Medication Order 01/16/2022 01/17/2022 01/18/2022 acetaminophen (TYLENOL) tablet 650 mg 650 mg, Oral, Every 4 hours PRN, mild pain, fever 100.4 F or greater, headaches, Starting on Fri01/14/22 at 0123, [] If ketorolac (TORADOL) is ordered and active, use it first for mild pain. 0007 (Given - Provider: Donal Youngblood RN) methocarbamoL (ROBAXIN) tablet 500 mg 500 mg, Oral, 3 times daily PRN, muscle spasms, Starting on Fri01/14/22 at 0123 naloxone (NARCAN) injection 0.1 mg(Linked Group 1) 0.1 mg, Intravenous, As needed, opioid reversal, For respiratory rate less than or equal to 8 per minute., Starting on Fri01/14/22 at 0123, Mix nalOXone (NARCAN) 0.4 mg (1mL) with 9 mL of Normal Saline to total 10 mL. Administer 0.1 mg (2.5mL) IV Push every 2 minutes until respiratory rate is 10 or greater. naloxone (NARCAN) injection 0.4 mg(Linked Group 1) 0.4 mg, Intravenous, As needed, opioid reversal, patient is pulseless, breathless, and unresponsive, Starting on Fri01/14/22 at 0123, Call a code first, then administer naloxone dose undiluted IV Push over 30 seconds. ondansetron (ZOFRAN) injection 4 mg(Linked Group 2) 4 mg, Intravenous, Every 6 hours PRN, nausea, vomiting, Starting on Fri01/14/22 at 0123, [] Oral or IV - use oral route if tolerated. ondansetron (ZOFRAN-ODT) disintegrating tablet 4 mg(Linked Group 2) 4 mg, Oral, Every 6 hours PRN, nausea, vomiting, Starting on Fri01/14/22 at 0123, [] Oral or IV - use oral route if tolerated. Formulation requires tablet remain in sealed package until immediately prior to dose being administered. sodium chloride (PF) (NS) flush 5 mL(Linked Group 3) 5 mL, Intravenous, As needed, line care, Starting on Fri01/14/22 at 0056 traMADoL (ULTRAM) tablet 50 mg 50 mg, Oral, Every 6 hours PRN, moderate to severe pain, Starting on Fri01/14/22 at 0123 1414 (Given - Provider: Eulalia Liu RN)2115 (Given - Provider: Donal Youngblood, LICHA) 0442 (Given - Provider: Donal Youngblood RN) Linked Groups Order Group 1: naloxone (NARCAN) injection 0.1 mgJump to med 0.1 mg, Intravenous, As needed, opioid reversal, For respiratory rate less than or equal to 8 per minute., Starting on Fri01/14/22 at 0123
Mix nalOXone (NARCAN) 0.4 mg (1mL) with 9 mL of Normal Saline to total 10 mL. Administer 0.1 mg (2.5mL) IV Push every 2 minutes until respiratory rate is 10 or greater.
And Notify physician (CANCELED) STAT, Until discontinued, Starting on Fri01/14/22 at 0124, Until Specified
Respiratory rate less than: 8
For respiratory rate less than or equal to 8, notify physician and/or appropriate staff for additional orders. And naloxone (NARCAN) injection 0.4 mgJump to med 0.4 mg, Intravenous, As needed, opioid reversal, patient is pulseless, breathless, and unresponsive, Starting on Fri01/14/22 at 0123
Call a code first, then administer naloxone dose undiluted IV Push over 30 seconds.
Group 2: ondansetron (ZOFRAN-ODT) disintegrating tablet 4 mgJump to med 4 mg, Oral, Every 6 hours PRN, nausea, vomiting, Starting on Fri01/14/22 at 0123
[] Oral or IV - use oral route if tolerated. Formulation requires tablet remain in sealed package until immediately prior to dose being administered.
Or ondansetron (ZOFRAN) injection 4 mgJump to med 4 mg, Intravenous, Every 6 hours PRN, nausea, vomiting, Starting on Fri01/14/22 at 0123
[] Oral or IV - use oral route if tolerated.
Group 3: Insert peripheral IV (COMPLETED) JENNY, Once, On Fri01/14/22 at 0057, For 1 occurrence And Saline lock IV (CANCELED) JENNY, Once, On Fri01/14/22 at 0057, For 1 occurrence And sodium chloride (PF) (NS) flush 5 mLJump to med 5 mL, Intravenous, As needed, line care, Starting on Fri01/14/22 at 0056 And sodium chloride 0.9% (NS) (CANCELED) 0-150 mL/hr, Intravenous, As needed, To flush line after IV infusions when no maintenance IV ordered or a compatibility issue. Infuse 20ml at the same rate as the secondary infusion, Starting on Fri01/14/22 at 0056
Run as Primary IV. NOT intended for KVO.
Scheduled Medication Order 01/13/2023 01/14/2023 01/15/2023 acetaminophen (Tylenol) tablet 1,000 mg 1,000 mg, Oral, Every 8 hours, First dose on Fri01/10/23 at 0900, Maximum dose of acetaminophen is 4000 mg from all sources in 24 hours. 0112 (Given - Provider: Theodora Sarmiento RN)1019 (Given - Provider: Yolanda Clay RN)1633 (Given - Provider: Yolanda Clay RN) 0100 (Not Given - Provider: Mao Kent RN - Reason: Patient/family refused)0933 (Given - Provider: Camron Reyna, LICHA)1813 (Given - Provider: Camron Reyna, LICHA) 0100 (Not Given - Provider: Mao Kent RN - Reason: Patient/family refused)0836 (Given - Provider: Aftab Rachel LPN) amLODIPine (Norvasc) tablet 10 mg 10 mg, Oral, Daily, First dose (after last modification) on Fri01/11/23 at 0900 1019 (Given - Provider: Yolanda Clay RN) 0933 (Given - Provider: Camron Reyna RN) 0836 (Given - Provider: Aftab Rachel LPN) atorvastatin (Lipitor) tablet 20 mg 20 mg, Oral, Daily, First dose on Fri01/08/23 at 2099 2058 (Given - Provider: Mao Kent RN) 2017 (Given - Provider: Mao Kent RN) enoxaparin (Lovenox) syringe 30 mg 30 mg, SubCUTAneous, Every 12 hours, First dose on Fri01/10/23 at 1000, Indication of Use: Prophylaxis-DVT/PE, Indications: Prophylaxis of Venous Thromboembolism 1018 (Given - Provider: Yolanda Clay, RN)2058 (Given - Provider: Mao Kent RN) 0933 (Given - Provider: Camron Reyna RN)2017 (Given - Provider: Mao Ketn RN) 1000 (Given - Provider: Aftab Rachel LPN) melatonin tablet 3 mg 3 mg, Oral, Nightly, First dose on Fri01/08/23 at 2099 2058 (Given - Provider: Mao Kent RN) 2017 (Given - Provider: Mao Kent RN) pantoprazole (ProtoNix) EC tablet 40 mg 40 mg, Oral, Daily before breakfast, First dose on Fri01/09/23 at 0700, Substituted for omeprazole (Prilosec). Do not crush, chew, or split. 0634 (Given - Provider: Theodora Sarmiento RN) 0933 (Given - Provider: Camron Reyna RN) 0836 (Given - Provider: Aftab Rachel LPN) polyethylene glycol (PEG) 3350 (Miralax) packet 17 g 17 g, Oral, Daily, First dose on Fri01/08/23 at 0900 1018 (Given - Provider: Yolanda Clay RN) 0933 (Given - Provider: Camron Reyna RN) 0836 (Given - Provider: Aftab Rachel LPN) QUEtiapine (SEROquel) tablet 50 mg 50 mg, Oral, Nightly, First dose on Fri01/08/23 at 2099 2057 (Given - Provider: Mao Kent RN) 2016 (Given - Provider: Mao Kent RN) sennosides (Senokot) tablet 8.6 mg 8.6 mg (1 tablet), Oral, Nightly, First dose on Fri01/07/23 at 2200 2059 (Given - Provider: Mao Kent, RN) 2017 (Given - Provider: Mao Kent RN) spironolactone (Aldactone) tablet 25 mg 25 mg, Oral, Daily, First dose on Fri01/08/23 at 1500 1019 (Given - Provider: Yolanda Clay, LICHA) 0933 (Given - Provider: Camron Reyna RN) 0836 (Given - Provider: Aftab Rachel LPN) tamsulosin (Flomax) 24 hr capsule 0.4 mg 0.4 mg, Oral, Daily, First dose on Fri01/07/23 at 0945, Do not crush, chew, or split. 1019 (Given - Provider: Yolanda Clay RN) 0933 (Given - Provider: Camron Reyna RN) 0836 (Given - Provider: Aftab Rachel LPN) PRN Medication Order 01/13/2023 01/14/2023 01/15/2023 albuterol (2.5 MG/3ML) 0.083% nebulizer solution 2.5 mg 2.5 mg, Nebulization, Every 4 hours PRN, wheezing, shortness of breath, Starting on Fri01/11/23 at 0945, Initiate RT Bronchodilator Protocol: haloperidol lactate (Haldol) injection 0.5 mg 0.5 mg, IntraMUSCular, Every 6 hours PRN, agitation, second line for agitation, Starting on Fri01/08/23 at 1246, IM route of administration preferred. Because of the risk of TdP and QT prolongation, ECG monitoring is recommended if haloperidol is given IV hydrALAZINE (Apresoline) injection 10 mg 10 mg, IntraVENous, Every 4 hours PRN, high blood pressure, SBP > 150, hold for HR > 105 second line, Starting on Fri01/10/23 at 0851 labetalol (Normodyne,Trandate) injection 20 mg 20 mg, IntraVENous, Every 4 hours PRN, high blood pressure, SBP > 150, hold for HR < 60 first line, Starting on Fri01/10/23 at 0852 ondansetron (Zofran) injection 4 mg(Linked Group 1) 4 mg, IntraVENous, Every 6 hours PRN, nausea, vomiting, Starting on Fri01/06/23 at 2220, 1st Line. Give IV if patient is unable to take orally. If inadequate response within 60 minutes, proceed to next-line agent or contact provider if no further options ordered. ondansetron ODT (Zofran-ODT) disintegrating tablet 4 mg(Linked Group 1) 4 mg, Oral, Every 8 hours PRN, nausea, vomiting, Starting on Fri01/06/23 at 2220, 1st Line. If inadequate response within 60 minutes, proceed to next-line agent or contact provider if no further options ordered. Patient should allow tablet to dissolve on tongue. Do not remove from blister pack until just before administering. oxyCODONE (Roxicodone) immediate release tablet 2.5 mg 2.5 mg, Oral, Every 4 hours PRN, moderate pain (4-6), severe pain (7-10), pain, Starting on Fri01/10/23 at 0849 polyethylene glycol (PEG) 3350 (Miralax) packet 17 g 17 g, Oral, Daily PRN, constipation, Starting on Fri01/06/23 at 2220, 1st line for treatment of constipation - give scheduled if no bowel movement in past 24 hours. QUEtiapine (SEROquel) tablet 12.5 mg 12.5 mg, Oral, 2 times daily PRN, agitation, first line for agitation, Starting on Fri01/08/23 at 1257 sodium chloride 0.9 % infusion 5-250 mL/hr, IntraVENous, PRN, if patient receiving piggyback infusions and maintenance fluids are not ordered OR KVO fluids to protect IV site / prevent frequent line interruptions / long duration, Starting on Fri01/06/23 at 2220, For piggyback infusion, administer at same rate as piggyback for a total of 25 mL. Enter 25 mL into dose field and piggyback rate into rate field of order. If piggyback is infusing at a rate less than 100 mL/hr, enter 25 mL into dose field and 100 mL/hr into rate field of order. For KVO fluids, enter rate of 20 mL/hr or less into rate field of order. Linked Groups Order Group 1: ondansetron ODT (Zofran-ODT) disintegrating tablet 4 mgJump to med 4 mg, Oral, Every 8 hours PRN, nausea, vomiting, Starting on Fri01/06/23 at 2220, 1st Line. If inadequate response within 60 minutes, proceed to next-line agent or contact provider if no further options ordered. Patient should allow tablet to dissolve on tongue. Do not remove from blister pack until just before administering. Or ondansetron (Zofran) injection 4 mgJump to med 4 mg, IntraVENous, Every 6 hours PRN, nausea, vomiting, Starting on Fri01/06/23 at 2220, 1st Line. Give IV if patient is unable to take orally. If inadequate response within 60 minutes, proceed to next-line agent or contact provider if no further options ordered. Scheduled Medication Order 05/16/2023 05/17/2023 05/18/2023 amLODIPine (Norvasc) tablet 10 mg 10 mg, oral, Daily, First dose on Fri05/16/23 at 0900 0924 (Given - Provider: Hattie Trevizo RN) 0824 (Given - Provider: Cheryl Chawla RN) 0802 (Given - Provider: Cheryl Chawla RN) apixaban (Eliquis) tablet 5 mg 5 mg, oral, Every 12 hours, First dose on Fri05/16/23 at 1200 1225 (Given - Provider: Hattie Trevizo RN)2345 (Given - Provider: Candi Negron RN) 1100 (Given - Provider: Cheryl Chawla RN) 0036 (Given - Provider: Dawn Lunsford RN)1109 (Given - Provider: Cheryl Chawla RN) atorvastatin (Lipitor) tablet 20 mg 20 mg, oral, Daily, First dose on Fri05/16/23 at 0900 0924 (Given - Provider: Hattie Trevizo RN) 0824 (Given - Provider: Cheryl Chawla RN) 0802 (Given - Provider: Cheryl Chawla RN) furosemide (Lasix) injection 40 mg 40 mg, intravenous, Every 12 hours, First dose on Fri05/16/23 at 0700 0635 (Given - Provider: Yeni Robles RN)1811 (Given - Provider: Hattie Trevizo RN) 0530 (Given - Provider: Candi Negron RN)1801 (Given - Provider: Cheryl Chawla RN) 0802 (Given - Provider: Cheryl Chawla RN)1900 (Due) hydrALAZINE (Apresoline) injection 10 mg (COMPLETED) 10 mg, intravenous, Once, On Fri05/16/23 at 0630, For 1 dose 0635 (Given - Provider: Yeni Robles RN) hydrALAZINE (Apresoline) tablet 50 mg 50 mg, oral, 3 times daily, First dose (after last modification) on Fri05/16/23 at 0215 0218 (Given - Provider: Yeni Robles RN)0924 (Given - Provider: Hattie Trevizo RN)1511 (Given - Provider: Hattie Trevizo, RN)205 (Given - Provider: Candi Negron RN) 0824 (Given - Provider: Cheryl Chawla RN)1600 (Given - Provider: Cheryl Chawla RN)1999 (Given - Provider: Dawn Lunsford, LICHA) 08 (Given - Provider: Cheryl Chawla RN)1500 (Due)2100 (Due) melatonin tablet 3 mg 3 mg, oral, Nightly, First dose on Fri05/16/23 at 0100 0100 (Not Given - Provider: Yeni Robles RN - Reason: Patient/family refused)2050 (Given - Provider: Candi Negron RN) 1999 (Given - Provider: Dawn Lunsford RN) 2100 (Due) oxygen (O2) therapy inhalation, Continuous - Inhalation, First dose on Fri05/15/23 at 1610, Device: Nasal Cannula, Rate in liters per minute: 4 LPM 0052 (Rate/Dose Verify - Provider: Irena Clark, AREA REPRESENTATIVE)0554 (Rate/Dose Verify - Provider: Deysi Acharya MAINSPRING STRIP INSPECTOR)0600 (Rate/Dose Change - Provider: Theresa Luong RN)0800 (Due)0922 (Rate/Dose Verify - Provider: Theresa Luong RN)1000 (Rate/Dose Verify - Provider: Theresa Luong RN)2000 (Due)2100 (Rate/Dose Verify - Provider: Candi Negron RN)2101 (Rate/Dose Verify - Provider: Catrina Matthews, AREA REPRESENTATIVE) 0000 (Rate/Dose Verify - Provider: Candi Negron RN)0044 (Rate/Dose Verify - Provider: Catrina Matthews RRT)0600 (Rate/Dose Verify - Provider: Tiffanie Gonzalez RRT)0800 (Due - Provider: Tiffanie Gonzalez RRT)1000 (Rate/Dose Verify - Provider: Tiffanie Gonzalez RRT)1947 (Rate/Dose Verify - Provider: Catrina Matthews RRT)1948 (Rate/Dose Verify - Provider: Catrina Matthews RRT)2000 (Due) 0058 (Rate/Dose Verify - Provider: Catrina Matthews RRT)0800 (Due)0801 (Rate/Dose Verify - Provider: Cheryl Chawla RN - Comment: 4L)1999 (Due) pantoprazole (ProtoNix) EC tablet 20 mg 20 mg, oral, Daily before breakfast, First dose on Fri05/16/23 at 0700, Do not crush, chew, or split. 0635 (Given - Provider: Yeni Robles RN) 0824 (Given - Provider: Cheryl Chawla RN) 0802 (Given - Provider: Cheryl Chawla RN) perflutren lipid microspheres (Definity) injection 1 mL of dilution (COMPLETED) 1 mL of dilution, intravenous, Once in imaging, Starting on Fri05/16/23 at 0627, For 1 dose, CV Medications, Contrast - for use by imaging provider only. Prior to administration, Definity product must be activated. First, bring vial to room temperature. Then, shake vial for 45 seconds. Do not use if the 45 second activation cycle has not been completed. Following activation, the product will appear as a milky white suspension and may be used immediately. If not used within 5 minutes of activation, re-suspend by inverting and shaking the vial for 10 seconds. Discard unused product. Administration: Dilute 1.3 mL of activated DEFINITY with 8.7 mL of normal saline in a 10 mL syringe. Inject 0.5 mL of diluted DEFINITY when notified the images/film are unclear to enhance view of Left Ventricular borders. Repeat 0.5 mL of DEFINITY until clear images are obtained, not to exceed 10 mLs. Once images are obtained or limit of medication is reached, flush line with 10 mL of Normal Saline. 0627 (Given - Provider: Tracie Box RN - Comment: Administered 2ml of diluted definity as handling tech instructed.) perflutren protein A microsphere (Optison) injection 0.5 mL 0.5 mL, intravenous, Once in imaging, Starting on Fri05/16/23 at 2213, For 1 dose, CV Medications sennosides-docusate sodium (Kristyn-Colace) 8.6-50 mg per tablet 1 tablet 1 tablet, oral, 2 times daily, First dose on Fri05/16/23 at 0100 0100 (Not Given - Provider: Yeni Robles RN - Reason: Other - Comment: to start in AM)09 (Given - Provider: Hattie Trevizo RN)2051 (Given - Provider: Candi Negron RN) 08 (Given - Provider: Cheryl Chawla RN)1999 (Given - Provider: Dawn Lunsford RN) 08 (Given - Provider: Cheryl Chawla RN)2100 (Due) spironolactone (Aldactone) tablet 25 mg (CANCELED) 25 mg, oral, Daily, First dose on Fri05/16/23 at 0900 0924 (Given - Provider: Hattie Trevizo RN) 08 (Given - Provider: Cheryl Chawla RN) spironolactone (Aldactone) tablet 25 mg 25 mg, oral, 2 times daily, First dose (after last modification) on Fri05/17/23 at 2100 2000 (Given - Provider: Dawn Lunsford RN) 08 (Given - Provider: Cheryl Chawla RN)2100 (Due) sulfur hexafluoride microsphr (Lumason) injection 24.28 mg 24.28 mg (2 mL), intravenous, Once in imaging, Starting on Fri05/16/23 at 2213, For 1 dose, CV Medications, Follow administration with 5 mL NaCL 0.9% injection. PRN Medication Order 05/16/2023 05/17/2023 05/18/2023 acetaminophen (Tylenol) oral liquid 650 mg(Linked Group 1) 650 mg, oral, Every 4 hours PRN, pain mild (1-3), first line, Starting on Fri05/16/23 at 0031, Give oral liquid per feeding tube if present. 1958 (See Alternative - Provider: Dawn Lunsford, LICHA) acetaminophen (Tylenol) suppository 650 mg(Linked Group 1) 650 mg, rectal, Every 4 hours PRN, pain mild (1-3), first line, Starting on Fri05/16/23 at 0031, Give rectally if unable to administer by mouth or feeding tube., If ordered PRN for pain, nurse is permitted to administer this medication for higher pain scores based on patient preference? Yes 1958 (See Alternative - Provider: Dawn Lunsford RN) acetaminophen (Tylenol) tablet 650 mg(Linked Group 1) 650 mg, oral, Every 4 hours PRN, pain mild (1-3), first line, Starting on Fri05/16/23 at 0031, If ordered PRN for pain, nurse is permitted to administer this medication for higher pain scores based on patient preference? Yes 1958 (Given - Provider: Kurtis Lunsford RN) magnesium hydroxide (Milk of Magnesia) 2,400 mg/10 mL suspension 10 mL 10 mL, oral, Daily PRN, constipation, first line, Starting on Fri05/16/23 at 0031, Contact provider if no bowel movement in past 48 hours. Concentrated product. Follow administration with 8 ounces of water. ondansetron (Zofran) injection 4 mg(Linked Group 2) 4 mg, intravenous, Every 8 hours PRN, nausea/vomiting, first line, Starting on Fri05/16/23 at 0031, 1st Line. Give IV if patient is unable to take orally. If inadequate response within 60 minutes, proceed to next-line agent for same PRN reason or contact provider if no further options ordered. When administering via IV Push, administer over 3-5 minutes. ondansetron ODT (Zofran-ODT) disintegrating tablet 4 mg(Linked Group 2) 4 mg, oral, Every 8 hours PRN, nausea/vomiting, first line, Starting on Fri05/16/23 at 0031, 1st Line. Patient should allow tablet to dissolve on tongue. Do not remove from blister pack until just before administering. If inadequate response within 60 minutes, proceed to next-line agent for same PRN reason or contact provider if no further options ordered. Linked Groups Order Group 1: acetaminophen (Tylenol) tablet 650 mgJump to med 650 mg, oral, Every 4 hours PRN, pain mild (1-3), first line, Starting on Fri05/16/23 at 0031
If ordered PRN for pain, nurse is permitted to administer this medication for higher pain scores based on patient preference? Yes Or acetaminophen (Tylenol) oral liquid 650 mgJump to med 650 mg, oral, Every 4 hours PRN, pain mild (1-3), first line, Starting on Fri05/16/23 at 0031
Give oral liquid per feeding tube if present.
Or acetaminophen (Tylenol) suppository 650 mgJump to med 650 mg, rectal, Every 4 hours PRN, pain mild (1-3), first line, Starting on Fri05/16/23 at 0031
Give rectally if unable to administer by mouth or feeding tube.
If ordered PRN for pain, nurse is permitted to administer this medication for higher pain scores based on patient preference? Yes Group 2: ondansetron ODT (Zofran-ODT) disintegrating tablet 4 mgJump to med 4 mg, oral, Every 8 hours PRN, nausea/vomiting, first line, Starting on Fri05/16/23 at 0031
1st Line. Patient should allow tablet to dissolve on tongue. Do not remove from blister pack until just before administering. If inadequate response within 60 minutes, proceed to next-line agent for same PRN reason or contact provider if no further options ordered.
Or ondansetron (Zofran) injection 4 mgJump to med 4 mg, intravenous, Every 8 hours PRN, nausea/vomiting, first line, Starting on Fri05/16/23 at 0031
1st Line. Give IV if patient is unable to take orally. If inadequate response within 60 minutes, proceed to next-line agent for same PRN reason or contact provider if no further options ordered. When administering via IV Push, administer over 3-5 minutes.
Scheduled Medication Order 06/11/2023 06/12/2023 06/13/2023 acetaminophen (Tylenol) tablet 1,000 mg 1,000 mg, Oral, Once, On Fri06/13/23 at 1045, For 1 dose, Preprocedure, Maximum dose of acetaminophen is 4000 mg from all sources in 24 hours. Do not administer if patient has taken tylenol <6 hours earlier. Do not give if contraindicated ie. patient has active liver disease or cirrhosis. 1045 (Not Given - Pr ovider: Dina Rabago RN - Reason: Other - Comment: pt took at home) ceFAZolin in dextrose 4% (Ancef) IVPB 2,000 mg (COMPLETED) 2,000 mg, IntraVENous, Administer over 30 Minutes, Once, On Fri06/13/23 at 1045, For 1 dose, Preprocedure, Administer within 1 hour prior to incision. Recommend to repeat in 3-4 hours after initial dose if still intra-op. premix bag, Suspected Indication (Select all that apply): Surgical Prophylaxis 1122 (Given - Provid er: Roxanna Fried, OTILIA - KIRAN) famotidine (Pepcid) tablet 20 mg (COMPLETED)(Linked Group 1) 20 mg, Oral, Once, On Fri06/13/23 at 1045, For 1 dose, Preprocedure, IV or ORAL 1047 (Given - Provid er: Dina Rabago RN) sodium chloride 0.9% (NS) flush 10 mL 10 mL, IntraVENous, Every 12 hours scheduled (2 times per day), First dose on Fri06/13/23 at 2100, Recovery (only) sodium chloride 0.9% (NS) flush 5-40 mL 5-40 mL, IntraVENous, Every 12 hours, First dose on Fri06/13/23 at 1045, Preprocedure, For Line Patency: Peripheral IV = 5 mL; Midline or Central Line = 10 mL/lumen. If following IV push medication, administer flush at same rate as the IV push. Flush volume is determined by type of infusion therapy being given. For non-viscous solutions use: Peripheral IV = 5 mL Midline or Central Line = 10 mL/lumen For viscous solutions (i.e. blood components, parenteral nutrition, contrast media, or after obtaining blood sample) use: Peripheral IV = 10 mL Midline or Central Line = 20 mL/lumen 1045 (Canceled Entry - Provider: Automatic Discharge Provider - Comment: Automatically canceled at discontinue of medication order) sodium chloride 0.9% (NS) flush 5-40 mL 5-40 mL, IntraVENous, Every 12 hours scheduled (2 times per day), First dose on Fri06/13/23 at 1045, Preprocedure, or Line Patency: Peripheral IV = 5 mL; Midline or Central Line = 10 mL/lumen. If following IV push medication, administer flush at same rate as the IV push. Flush volume is determined by type of infusion therapy being given. For non-viscous solutions use: Peripheral IV = 5 mL Midline or Central Line = 10 mL/lumen For viscous solutions (i.e. blood components, parenteral nutrition, contrast media, or after obtaining blood sample) use: Peripheral IV = 10 mL Midline or Central Line = 20 mL/lumen 1045 (Canceled Entry - Provider: Automatic Discharge Provider - Comment: Automatically canceled at discontinue of medication order) Continuous Medication Order 06/11/2023 06/12/2023 06/13/2023 lactated Ringer's (LR) infusion 50 mL/hr, IntraVENous, Continuous, Starting on Fri06/13/23 at 1045, Preprocedure, Upon admission to sameday - please start iv if patient does not have iv access. Use 500ml NS for patients on dialysis. 1047 (New Bag - Prov ider: Dina Rabago RN)1115 (Continued by Anesthesia - Provider: OTILIA Landa CRNA)1126 (Paused - Provider: OTILIA Landa CRNA - Comment: Switch to gravity)1127 (Restarted - Provider: OTILIA Landa CRNA)1146 (Anesthesia Volume Adjustment - Provider: OTILIA Landa CRNA) lactated ringers infusion 125 mL/hr, IntraVENous, Continuous, Starting on Fri06/13/23 at 1215, Recovery (only) 1215 (Canceled Entry - Provider: Automatic Discharge Provider - Comment: Automatically canceled at discontinue of medication order) PRN Medication Order 06/11/2023 06/12/2023 06/13/2023 ALPRAZolam (Xanax) disintegrating tablet 0.25 mg 0.25 mg, Oral, PRN, anxiety, Starting on Fri06/13/23 at 1039, Preprocedure diphenhydrAMINE (BENADryl) injection 12.5 mg 12.5 mg, IntraVENous, Once PRN, itching, Starting on Fri06/13/23 at 1209, For 1 dose, Recovery (only) fentaNYL (Sublimaze) injection 25 mcg 25 mcg, IntraVENous, Every 5 min PRN, moderate pain (4-6), Starting on Fri06/13/23 at 1209, For 3 doses, Recovery (only), Phase I and Phase II- Initial therapy for moderate pain (4-6). Restricted to a 90 minute time frame starting when the patient can verbally state their pain score. If after 2 doses the pain score does not decrease by more than one point, then call the provider. If oral meds are utilized, do not return to initial therapy medications. fentaNYL (Sublimaze) injection 50 mcg 50 mcg, IntraVENous, Every 5 min PRN, severe pain (7-10), Starting on Fri06/13/23 at 1209, For 3 doses, Recovery (only), Phase I and Phase II- Initial therapy for severe pain (7-10). Restricted to a 90 minute time frame starting when the patient can verbally state their pain score. If after 2 doses the pain score does not decrease by more than one point, then call the provider. If oral meds are utilized, do not return to initial therapy medications. 1214 (Given - Provid er: Roz Newton RN)1244 (Given - Provider: Roz Newton RN) hydrALAZINE (Apresoline) injection 5 mg (COMPLETED)(Linked Group 2) 5 mg, IntraVENous, Every 15 min PRN, high blood pressure, for SBP greater than 160 mmHg for 2 consecutive measurements taken from different sites, Starting on Fri06/13/23 at 1209, For 2 doses, Recovery (only), PRN for SBP > 160 for 2 consecutive measurements, and if one of the following conditions is met: 1) If IV labetolol is ineffective. 2) If HR is under 60. 3) If patient has heart block, COPD or asthma. If both labetalol and hydralazine ineffective, notify anesthesia provider. 1235 (Given - Provid er: Roz Newton RN)1248 (Given - Provider: Roz Newton RN) ondansetron (Zofran) injection 4 mg 4 mg, IntraVENous, Once PRN, nausea, Starting on Fri06/13/23 at 1209, For 1 dose, Recovery (only), Initial antiemetic therapy. oxyCODONE (Roxicodone) immediate release tablet 10 mg (COMPLETED)(Linked Group 3) 10 mg, Oral, PRN, severe pain (7-10), Starting on Fri06/13/23 at 1209, For 1 dose, Recovery (only), PHASE II 1300 (Given - Provid er: Roz Newton RN) sodium chloride 0.9 % bolus 500 mL 500 mL, IntraVENous, at 1,000 mL/hr, Administer over 0.5 Hours, PRN, Anti-nausea, Starting on Fri06/13/23 at 1209, Recovery (only), Indications: Anti-nausea sodium chloride 0.9 % infusion 5-250 mL/hr, IntraVENous, PRN, if patient receiving piggyback infusions and maintenance fluids are not ordered OR KVO fluids to protect IV site / prevent frequent line interruptions / long duration, Starting on Fri06/13/23 at 1039, Preprocedure, For piggyback infusion, administer at same rate as piggyback for a total of 25 mL. Enter 25 mL into dose field and piggyback rate into rate field of order. If piggyback is infusing at a rate less than 100 mL/hr, enter 25 mL into dose field and 100 mL/hr into rate field of order. For KVO fluids, enter rate of 20 mL/hr or less into rate field of order. sodium chloride 0.9 % infusion 5-250 mL/hr, IntraVENous, PRN, if patient receiving piggyback infusions and maintenance fluids are not ordered OR KVO fluids to protect IV site / prevent frequent line interruptions/ long duration, Starting on Fri06/13/23 at 1039, Preprocedure, For piggyback infusion, administer at same rate as piggyback for a total of 25 mL. Enter 25 mL into dose field and piggyback rate into rate field of order. If piggyback is infusing at a rate less than 100 mL/hr, enter 25 mL into dose field and 100 mL/hr into rate field of order. For KVO fluids, enter rate of 20 mL/hr or less into rate field of order. sodium chloride 0.9 % infusion 5-250 mL/hr, IntraVENous, PRN, if patient receiving piggyback infusions and maintenance fluids are not ordered OR KVO fluids to protect IV site / prevent frequent line interruptions/ long duration, Starting on Fri06/13/23 at 1209, Recovery (only), For piggyback infusion, administer at same rate as piggyback for a total of 25 mL. Enter 25 mL into dose field and piggyback rate into rate field of order. If piggyback is infusing at a rate less than 100 mL/hr, enter 25 mL into dose field and 100 mL/hr into rate field of order. For KVO fluids, enter rate of 20 mL/hr or less into rate field of order. sodium chloride 0.9 % irrigation solution (CANCELED) As needed, Starting on Fri06/13/23 at 1138, Intraprocedure 1138 (Given - Provid er: Ada Willams MD) sodium chloride 0.9% (NS) flush 10 mL 10 mL, IntraVENous, PRN, line care, Starting on Fri06/13/23 at 1209, Recovery (only), After every IV line use sodium chloride 0.9% (NS) flush 5-40 mL 5-40 mL, IntraVENous, PRN, line care, After every IV line use, Starting on Fri06/13/23 at 1039, Preprocedure, For Line Patency: Peripheral IV = 5 mL; Midline or Central Line = 10 mL/lumen. If following IV push medication, administer flush at same rate as the IV push. Flush volume is determined by type of infusion therapy being given. For non-viscous solutions use: Peripheral IV = 5 mL Midline or Central Line = 10 mL/lumen For viscous solutions (i.e. blood components, parenteral nutrition, contrast media, or after obtaining blood sample) use: Peripheral IV = 10 mL Midline or Central Line = 20 mL/lumen sodium chloride 0.9% (NS) flush 5-40 mL 5-40 mL, IntraVENous, PRN, line care, After every IV line use, Starting on Fri06/13/23 at 1039, Preprocedure, or Line Patency: Peripheral IV = 5 mL; Midline or Central Line = 10 mL/lumen. If following IV push medication, administer flush at same rate as the IV push. Flush volume is determined by type of infusion therapy being given. For non-viscous solutions use: Peripheral IV = 5 mL Midline or Central Line = 10 mL/lumen For viscous solutions (i.e. blood components, parenteral nutrition, contrast media, or after obtaining blood sample) use: Peripheral IV = 10 mL Midline or Central Line = 20 mL/lumen Linked Groups Order Group 1: famotidine (Pepcid) tablet 20 mg (COMPLETED)Jump to med 20 mg, Oral, Once, On Fri06/13/23 at 1045, For 1 dose, Preprocedure, IV or ORAL Or famotidine (Pepcid) 20 mg in sodium chloride (PF) 0.9 % 10 mL injection (COMPLETED) 20 mg, IntraVENous, Administer over 2 Minutes, Once, On Fri06/13/23 at 1045, For 1 dose, Preprocedure, IV or ORAL Group 2: labetalol (Normodyne,Trandate) injection 5 mg (COMPLETED) 5 mg, IntraVENous, Every 10 min PRN, high blood pressure, for SBP greater than 160 mmHg for 2 consecutive measurements taken from different sites., Starting on Fri06/13/23 at 1209, For 2 doses, Recovery (only), PRN for SBP >160 for 2 consecutive measurements, if HR is 60 or greater. If beta lashell is contraindicated (HR less than 60, heart block, COPD or asthma) use hydralazine IV order. Or hydrALAZINE (Apresoline) injection 5 mg (COMPLETED)Jump to med 5 mg, IntraVENous, Every 15 min PRN, high blood pressure, for SBP greater than 160 mmHg for 2 consecutive measurements taken from different sites, Starting on Fri06/13/23 at 1209, For 2 doses, Recovery (only), PRN for SBP > 160 for 2 consecutive measurements, and if one of the following conditions is met: 1) If IV labetolol is ineffective. 2) If HR is under 60. 3) If patient has heart block, COPD or asthma. If both labetalol and hydralazine ineffective, notify anesthesia provider. Group 3: oxyCODONE (Roxicodone) immediate release tablet 5 mg (COMPLETED) 5 mg, Oral, PRN, moderate pain (4-6), Starting on Fri06/13/23 at 1209, For 1 dose, Recovery (only), PHASE II Or oxyCODONE (Roxicodone) immediate release tablet 10 mg (COMPLETED)Jump to med 10 mg, Oral, PRN, severe pain (7-10), Starting on Fri06/13/23 at 1209, For 1 dose, Recovery (only), PHASE II Scheduled Medication Order 12/24/2023 12/25/2023 12/26/2023 morphine injection 2 mg (COMPLETED) 2 mg, intravenous, Once, On Fri12/26/23 at 1500, For 1 dose 1505 (Given - Provid er: Shelly Her RN) oxyCODONE-acetaminophen (Percocet) 5-325 mg per tablet 1 tablet (COMPLETED) 1 tablet, oral, Once, On Fri12/26/23 at 1705, For 1 dose, If ordered PRN for pain, nurse is permitted to administer this medication for higher pain scores based on patient preference? Yes 1704 (Given - Provid er: Shelly Her RN) (unrecognized sect ion and content) No Status Records FoundNo Status Records FoundNo Status Records FoundNo Status Records FoundNo Status Records FoundNo Status Records FoundNo Status Records FoundNo Status Records FoundNo Status Records Found INFORMATION SOURCE (unrecogn ized section and content) DATE CREATED AUTHOR 02/05/2022 [facility] DATE CREATED AUTHOR AUTHOR'S ORGANIZ ATION 04/15/2022 [facility] DATE CREATED AUTHOR AUTHOR'S ORGANIZ ATION 06/23/2023 [facility] DATE CREATED AUTHOR AUTHOR'S ORGANIZ ATION 11/07/2023 [facility] DATE CREATED AUTHOR AUTHOR'S ORGANIZ ATION 11/10/[address] [facility] DATE CREATED AUTHOR AUTHOR'S ORGANIZ ATION 11/17/2023 [facility] DATE CREATED AUTHOR AUTHOR'S ORGANIZ ATION 12/30/2023 [facility] DATE CREATED AUTHOR AUTHOR'S ORGANIZ ATION 01/02/2024 [facility] DATE CREATED AUTHOR AUTHOR'S ORGANIZ ATION 01/03/2024 [facility] FOR RECORDS PERTAINING TO PATIENTS WHO ARE OR HAVE BEEN ENROLLED IN A CHEMICAL DEPENDENCY/SUBSTANCEABUSE PROGRAM, SOME INFORMATION MAY BE OMITTED. This clinical summary was aggregated from multiple sources. Caution should be exercised in using it in the provision of clinical care. This summary normalizes information from multiple sources, and as a consequence, information in this document may materially change the coding, format and clinical context of patient data. In addition, data may be omitted in some cases. CLINICAL DECISIONS SHOULD BE BASED ON THE PRIMARY CLINICAL RECORDS. [employer] provides no warranty or guarantee of the accuracy or completeness of information in this document.
[2024-01-04 12:04] VITALS: BP 167/61; PULSE 98; RESP 16; TEMP 36.7; O2SAT 99
[2024-01-04 12:41] VITALS: BMI 24.3
--- NOTE | 2024-01-04 12:57 | HP.PCM_ITS ---
HPI - General General Date of Admission: 01/04/24 Date of Service: 01/05/24 Chief Complaint: Here for rehabilitation. HPI Narrative ADA JUNE, is a 78 Male who presents with followin12/30/2023 Admit to [facility]. Fall, CT head negative for acute injury. CT right hip showed nondisplaced acetabular fracture, no surgery recommended. PT/OT. 12/31/2023 Right humerus fracture, treat nonsurgically. PT/OT SNF. 01/04/2024 Admit to TCU with debility, here for rehabilitation, strengthening, prior to discharge to [facility]. [facility] Medical History (Updated 01/04/24 @ 13:[address] 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 Diabetes mellitus, type II Caregiver stress Hydronephrosis Depression Ulnar neuropathy Osteoporosis Vitamin D deficiency GERD (gastroesophageal reflux disease) Hyperlipidemia Essential hypertension New onset atrial fibrillation Home Medications ?Medication ?Instructions ?Recorded ?Last Taken ?Type atorvastatin 20 mg tablet 20 mg PO QHS CHOLESTEROL 04/05/19 04/01/23 History omeprazole 20 mg capsule,delayed 20 mg PO DAILY.TCU ACID REFLUX 10/09/21 04/01/23 History release cholecalciferol (vitamin D3) 125 125 mcg PO DAILY SUPPLEMENT 04/02/23 04/01/23 History mcg (5,000 unit) capsule melatonin 3 mg tablet 3 mg PO QHS SLEEP 04/02/23 04/01/23 History hydralazine 25 mg tablet 50 mg (2 x 25 mg) PO TID 30 days 04/16/23 Unknown Rx #180 tabs oxycodone 5 mg tablet 5 mg PO Q4H PRN PRN Pain Score 04/16/23 Unknown Rx 4-10 7 days #42 tabs polysaccharide iron complex 150 mg 150 mg PO DAILY Supplement 30 days 04/16/23 Unknown Rx iron capsule (Ferrex) #30 caps sennosides 8.6 mg-docusate sodium 2 tab PO BID 30 days #120 tabs 04/16/23 Unknown Rx 50 mg tablet (Stool Softener-Stimulant Laxative) apixaban 5 mg tablet (Eliquis) 5 mg PO BID thinner 06/30/23 01/04/24 History furosemide 40 mg tablet 40 mg PO BID water pill 06/30/23 Unknown History acetaminophen 500 mg tablet 1,000 mg PO Q8 PRN pain 01/04/24 01/03/24 History alendronate 70 mg tablet 70 mg PO QWEEK supplement 01/04/24 Unknown History aluminum-magnesium hydroxide 200 15 ml PO Q6H PRN stomach 01/04/24 Unknown History mg-200 mg/5 mL oral suspension amlodipine 10 mg tablet 10 mg PO DAILY blood pressure 01/04/24 Unknown History amlodipine 5 mg tablet 10 mg PO DAILY Blood pressure 01/04/24 Unknown History ascorbic acid (vitamin C) 500 mg 500 mg PO DAILY supplement 01/04/24 Unknown History tablet diphenhydramine HCl 25 mg tablet 25 mg PO QHS PRN allergy symptoms 01/04/24 Unknown History (Banophen) glimepiride 1 mg tablet 1 mg PO DAILY dm 01/04/24 Unknown History hydralazine 50 mg tablet 50 mg PO Q8H PRN blood pressure 01/04/24 Unknown History lutein 25 mg-zeaxanthin 5 mg 1 cap PO DAILY Supplement 01/04/24 Unknown History capsule magnesium hydroxide 400 mg/5 mL 2,400 mg PO DAILY PRN constipation 01/04/24 Unknown History oral suspension metoprolol succinate 25 mg 25 mg PO DAILY Blood pressure 01/04/24 Unknown History tablet,extended release 24 hr mirtazapine 15 mg tablet 15 mg PO QHS Depression 01/04/24 Unknown History sacubitril 24 mg-valsartan 26 mg 1 tab PO BID CHF 01/04/24 Unknown History tablet (Entresto) spironolactone 25 mg tablet 25 mg PO DAILY BLOOD PRESSURE 01/04/24 Unknown History Allergy/AdvReac Type Severity Reaction Status Date / Time No Known Allergies Allergy Verified 06/30/23 13:48 Family History Mother , when patient was age 14, metastatic breast cancer Breast cancer Father , age 93 , unknown cause No problems noted. Surgical History History of diana hole surgery History of coronary artery bypass surgery (~07/27/21) History of mitral valve repair (~07/27/21) History of aortic valve replacement with bioprosthetic valve (~07/27/21) History of right and left heart catheterization (LHC) (~06/05/21) History of arthroplasty of right ankle History of total left hip arthroplasty abdominal incisional hernia repair (2011) History of ureter repair (2010) Social History (Updated 01/04/24 @ 13:[address] Jesse Mixon MD) household members: none and other details: [facility] housing: assisted living facility Smoking Status: Former smoker how long ago did patient quit smokin years ago alcohol intake: current alcohol intake frequency: holidays/special occasions only substance use type: does not use caffeine: Yes Type: coffee Number of servings: 4 ROS Constitutional Constitutional: Denies chills, fever(s) or weight gain ENT HEENT: Denies headache(s), nasal congestion or nasal discharge Cardiovascular Cardiovascular: Denies chest pain or palpitations Respiratory/Chest Respiratory/Chest: Denies cough, excessive phlegm production or shortness of breath with exertion Gastrointestinal Gastrointestinal: Denies abdominal pain, nausea or vomiting Genitourinary Genitourinary: Denies dysuria Musculoskeletal Musculoskeletal: Denies joint pain or joint swelling Integumentary Integumentary: Denies rash or wounds Neurologic Neurologic: Denies focal weakness, numbness or tingling Psychiatric Psychiatric: Denies anxiety, auditory hallucinations, depression, homicidal ideation or suicidal ideation Vital Signs Vital Signs Vital Signs: 01/04/24 12:04 Temperature 98.1 F Temperature Source Temporal Pulse Rate 98 Respiratory Rate 16 Blood Pressure 167/61 H Blood Pressure Mean 96 Blood Pressure Source Monitor Blood Pressure Position Semi-Fowlers Blood Pressure Location Left Arm Pulse Ox 99 Oxygen Delivery Method Room Air Weight Weight: 88.405 kg Body Mass Index (BMI) 24.3 Physical Exam Const alert General Appearance: cooperative HEENT normocephalic Eyes PERRL and EOMs intact bilaterally Neck supple, no JVD and no carotid bruits Resp normal respiratory effort, normal air movement and clear to auscultation bilaterally Cardio regular rate and regular rhythm GI normal to inspection, nondistended, normoactive bowel sounds, non-tender and non-distended Extremity normal capillary refill General Extremity: Negative for edema Skin no rashes or lesions noted General Skin Exam: no breakdown Psych affect normal Appearance: appropriate Results Lab / Micro Data 01/05/24 05:10 01/05/24 05:10 Assessment & Plan Assessment/Plan (1) Debility: (2) Right humeral fracture: (3) Closed right acetabular fracture: (4) Essential (primary) hypertension: (5) Hyperlipidemia: (6) Vitamin D deficiency: (7) Iron deficiency anemia: (8) Insomnia: (9) GERD (gastroesophageal reflux disease): (10) Atrial fibrillation: (11) Heart failure with reduced ejection fraction: (12) History of subdural hemorrhage: (13) BPH (benign prostatic hyperplasia): PLAN: Plan 78 year old male with below past medical history hospitalized for right humerus fracture, right nondisplaced acetabular fracture, both treated nonsurgically, admitted to TCU with debility, here for rehabilitation, strengthening, prior to discharge to [facility]. * Debility - PT/OT. * Pain - Tylenol 1000mg q6 prn pain (1-3), Tramadol 50mg q6 prn pain (4-5), Oxycodone 5mg q4 prn pain (6-10). * Bowel - senna/colace 2 tablets bid, Magnesium citrate 300mL po daily prn. * Adult immunization - Administer pneumonia vaccine, covid vaccine, flu vaccine as appropriate. * DVT prophylaxis - on Eliquis. * Osteoporosis - Alendronate 70mg qweek. * GERD - Pantoprazole 20mg daily, Mylanta II 15ml q6 prn. * Hypertension - Metoprolol succinate 25mg daily, Amlodipine 10mg daily, Hydralazine 50mg q8 prn. * Atrial fibrillation - Metoprolol succinate 25mg daily, Eliquis 5mg bid. * Iron deficiency anemia - Ferrex 150mg daily, Vitamin C 500mg daily. * Hyperlipidemia - Atorvastatin 20mg qhs. * Vitamin D deficiency - D3 125mcg daily. * HFrEF - Metoprolol succinate 25mg daily, Entresto 24/16mg bid, Aldactone 25mg daily, Furosemide 40mg bid. * Diabetes mellitus II - Glimepiride 1mg daily. * Depression/insomnia/appetite loss - Mirtazapine 15mg qhs, stable chronic fpc use, GDR not recommended. * Macular degeneration - Healthy Eyes 1 capsule daily.
[2024-01-04 13:31] VITALS: PULSE 98; RESP 16; O2SAT 99
[2024-01-04] MEDS: Furosemide 40 MG Tablet PO (15:14)
[2024-01-04] MEDS: SACUBITRIL/VALSARTAN 24/26 MG TABLET 1 EACH PO (23:19)
[2024-01-04] MEDS: APIXABAN 5 MG TABLET PO (23:19)
[2024-01-04] MEDS: Mirtazapine 15 MG Tablet PO (23:19)
[2024-01-04] MEDS: Atorvastatin Calcium 20 MG Tablet PO (23:19)
[2024-01-04] MEDS: oxyCODONE 5 MG Tablet PO (23:20)
[2024-01-04] MEDS: Acetaminophen 500 MG Tablet 1000 MG PO (23:20)
[2024-01-04] MEDS: 0.9% Saline Lock 10 ML Syringe IV (23:22)
[2024-01-04 23:25] VITALS: BP 162/101; PULSE 58
[2024-01-04] MEDS: hydrALAZINE 50 MG Tablet PO (23:25)
[2024-01-05 05:55] LABS: Absolute Lymphocyte Count 1.76 X10^3/uL (0.83-4.51); Absolute Neutrophil Count 15.2 X10^3/uL (2.0-7.7); Basophil# 0.08 X10^3/uL; Basophil% 0.4 % (0-1); Eosinophil# 0.12 X10^3/uL; Eosinophils% 0.6 % (0-5); Hematocrit 34.3 % (40-54); Hemoglobin 10.9 g/dL (13.0-16.5); Lymphocyte # 1.76 X10^3/ul (0.83-4.51); Lymphocyte % 9.3 % (19-41); Mean Corp Hgb Conc 31.8 g/dL (32-36); Mean Corpuscular Hgb 27.2 pg (27.0-32.0); Mean Corpuscular Volume 85.5 fL (80-94); Mean Platelet Vol. 9.9 fl (6.2-12.0); Monocyte# 1.63 X10^3/uL; Monocyte% 8.6 % (0-10); NRBC Flagged by Analyzer 0 % (0-5); Neutrophil # 15.21 X10^3/uL (2.7-7.7); Neutrophil % 80.3 % (47-70); POSITIVE DIFFERENTIAL YES; Platelet Count 379 K/mm3 (150-450); RBC Distribution Width CV 15.4 % (11.6-14.6); RBC Distribution Width SD 48.7 fl (35.1-43.9); Red Blood Count 4.01 M/mm3 (4.6-6.2)
[2024-01-05] MEDS: Furosemide 40 MG Tablet PO ×2 (05:56→14:13)
[2024-01-05] MEDS: Acetaminophen 500 MG Tablet 1000 MG PO ×2 (05:56→20:41)
[2024-01-05] MEDS: oxyCODONE 5 MG Tablet PO (05:57)
[2024-01-05 05:58] VITALS: BP 141/57; PULSE 58
[2024-01-05 06:03] LABS: Differential Indicated SCAN CRITERIA MET
[2024-01-05 06:36] LABS: Differential Comment SCANNED; Platelet Estimate ADEQUATE (ADEQ); Red Cell Morphology NORM C+C NORMAL (NORM C&C)
[2024-01-05 06:42] LABS: Anion Gap 8 (5-15); BUN 46 mg/dL (7-18); BUN/Creat Ratio 35.1 RATIO (10-20); Chloride 102 mmol/L (98-107); Creatinine, Serum 1.31 mg/dL (0.70-1.30); EST Glomerular Filtration Rate 56 mL/min (>60); Est Glom Filt Rate - Afr Amer 68 mL/min (>60); Estimated Creatinine Clearance 53.75 ml/min; Glucose 141 mg/dL (74-106); Potassium 4.6 mmol/L (3.5-5.1); Sodium Level 133 mmol/L (136-145)
[2024-01-05 09:06] VITALS: BP 113/47; PULSE 62; RESP 16; TEMP 36.7; O2SAT 97
[2024-01-05] MEDS: Glimepiride 1 MG Tablet PO ×2 (09:09)
[2024-01-05] MEDS: Spironolactone 25 MG Tablet PO (09:09)
[2024-01-05 09:10] VITALS: PULSE 62
[2024-01-05] MEDS: Senna/Docusate Sodium 1 Tablet 2 TABLET PO ×2 (09:10→20:42)
[2024-01-05] MEDS: Metoprolol(XL)Succ 25 MG Tablet PO (09:10)
[2024-01-05] MEDS: Multivitamin (Healthy Eyes) Capsule 1 CAP PO (09:10)
[2024-01-05] MEDS: APIXABAN 5 MG TABLET PO ×2 (09:10→20:42)
[2024-01-05] MEDS: SACUBITRIL/VALSARTAN 24/26 MG TABLET 1 EACH PO ×2 (09:10→20:42)
[2024-01-05] MEDS: amLODIPine 10 MG Tablet PO (09:10)
[2024-01-05] MEDS: Iron Polysaccharide Complex 150 MG CAPSULE PO (09:10)
[2024-01-05] MEDS: Pantoprazole Sodium 20 MG Tablet PO (09:10)
[2024-01-05] MEDS: Ascorbic Acid 500 MG Tablet PO (09:11)
[2024-01-05] MEDS: 0.9% Saline Lock 10 ML Syringe IV (09:11)
[2024-01-05] MEDS: Cholecalciferol (Vit D3) 125 MCG CAPSULE (5,000 UNITS) PO (09:11)
[2024-01-05] MEDS: Tuberculin,Purif.prot.deriv. 50 TU/ML Vial 0.1 ML ID (10:09)
--- NOTE | 2024-01-05 10:38 | NURSING ---
Side Stitcher Note; Activity Asset: Complete Edilberto has returned to TCU for continued therapy. He remains independent in his choice of daily activities and family will visits daily. He will read the paper and enjoys talking with others. At this time he has stated he would prefer to stay in his room and watch tv or read. Edilberto welcomes visits from the software test engineer and therapy dog when available. Staff will remind him of in room and group activities and respect his right to say no.
--- NOTE | 2024-01-05 12:17 | NURSING ---
Spoke with MATT at [facility], per their records resident was supposed to follow-up with ortho Dr. Hari Mortensen. RN called and left requesting return call. .
--- NOTE | 2024-01-05 14:51 | NURSING ---
message left with omid barboza NP office regarding recent & past pneumonia vaccines. awaiting return call.
--- NOTE | 2024-01-05 16:17 | CASEMGMT ---
Social Work SW met with patient to complete initial assessment. Pt known to this worker from previous stay. Verified contacts. Pt confirmed code status as DNR-CC. Pt resides at [facility] and enjoys it. Pt explained he took a stupid risk and fell from the seat of his rollator . SW educated to [facility] insurance with [employer] 01/07 and continued stay is not guaranteed with each review. Pt will return to [place], if able. SW sent updated clinicals to [place] via [facility] to inquire LOC needs for pt to return. SW will continue to follow for DC planning. 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
[2024-01-05] MEDS: Menthol/Lanolin/Calamine/Znox 113 GM Tube 1 APPLIC TOPICAL ×2 (16:25→20:41)
[2024-01-05] MEDS: traMADol 50 MG Tablet PO (18:23)
--- NOTE | 2024-01-05 19:50 | NURSING ---
staff reported pt had not voided since early AM, As staff were getting ready to Bladder scan, pt needed to use urinal immediately, voided 150cc & was incont as well. Will update fitting room associate to check bladder scan later for urinary retention
--- NOTE | 2024-01-05 20:31 | NURSING ---
Patient agitated states I can't pee! Do something about it . A&Ox3. Bladder scan performed, unable to obtain reading. Straight cath order PRN in place. Patient requests straight cath. states They had to do it the other day at [facility], try it again . Straight cath with aseptic technique per policy. 150cc ariane urine obtained. Patient states that feels better . Dayshift RN reports patient was incontinent of large amount of urine prior to shift change. Patient reports I feel alot better . No distress observed or reported at this time. Call light in reach. Denies dysuria at this time. Denies pain.
[2024-01-05] MEDS: Mirtazapine 15 MG Tablet PO (20:42)
[2024-01-05] MEDS: Atorvastatin Calcium 20 MG Tablet PO (20:42)
[2024-01-05 20:48] VITALS: BP 113/52; PULSE 68; RESP 16; O2SAT 97
[2024-01-05 20:49] VITALS: PULSE 68; O2SAT 97
[2024-01-06] MEDS: 0.9% Saline Lock 10 ML Syringe IV ×3 (05:17→22:40)
[2024-01-06] MEDS: oxyCODONE 5 MG Tablet PO ×2 (05:17→11:46)
[2024-01-06] MEDS: Furosemide 40 MG Tablet PO (05:18)
[2024-01-06 05:53] LABS: Absolute Lymphocyte Count 1.78 X10^3/uL (0.83-4.51); Basophil# 0.05 X10^3/uL; Basophil% 0.3 % (0-1); Eosinophil# 0.15 X10^3/uL; Eosinophils% 0.8 % (0-5); Hematocrit 31.8 % (40-54); Lymphocyte # 1.78 X10^3/ul (0.83-4.51); Lymphocyte % 9.1 % (19-41); Mean Corp Hgb Conc 31.4 g/dL (32-36); Mean Corpuscular Hgb 27.1 pg (27.0-32.0); Mean Corpuscular Volume 86.2 fL (80-94); Mean Platelet Vol. 9.8 fl (6.2-12.0); Monocyte# 1.34 X10^3/uL; Monocyte% 6.9 % (0-10); NRBC Flagged by Analyzer 0 % (0-5); Neutrophil # 15.96 X10^3/uL (2.7-7.7); Neutrophil % 81.9 % (47-70); Platelet Count 390 K/mm3 (150-450); RBC Distribution Width CV 15.8 % (11.6-14.6); RBC Distribution Width SD 50.1 fl (35.1-43.9); Red Blood Count 3.69 M/mm3 (4.6-6.2); White Blood Count 19.5 K/mm3 (4.4-11.0)
[2024-01-06 06:21] LABS: Bedside Glucose 92 mg/dL (74-106)
--- NOTE | 2024-01-06 06:23 | NURSING ---
pt. c/o dysuria, written communication left for Dr. Mixon review this AM
[2024-01-06 06:36] LABS: Anion Gap 10 (5-15); BUN 75 mg/dL (7-18); BUN/Creat Ratio 38.7 RATIO (10-20); Calcium,Total 8.6 mg/dL (8.5-10.1); Chloride 101 mmol/L (98-107); Creatinine, Serum 1.94 mg/dL (0.70-1.30); EST Glomerular Filtration Rate 36 mL/min (>60); Est Glom Filt Rate - Afr Amer 43 mL/min (>60); Glucose 100 mg/dL (74-106); Potassium 4.3 mmol/L (3.5-5.1); Sodium Level 132 mmol/L (136-145)
[2024-01-06 09:09] VITALS: BP 119/55; PULSE 61
[2024-01-06] MEDS: amLODIPine 10 MG Tablet PO (09:09)
[2024-01-06] MEDS: Ascorbic Acid 500 MG Tablet PO (09:09)
[2024-01-06] MEDS: Iron Polysaccharide Complex 150 MG CAPSULE PO (09:09)
[2024-01-06] MEDS: Cholecalciferol (Vit D3) 125 MCG CAPSULE (5,000 UNITS) PO (09:09)
[2024-01-06] MEDS: APIXABAN 5 MG TABLET PO ×2 (09:09→22:35)
[2024-01-06] MEDS: Metoprolol(XL)Succ 25 MG Tablet PO (09:09)
[2024-01-06] MEDS: Spironolactone 25 MG Tablet PO (09:09)
[2024-01-06] MEDS: SACUBITRIL/VALSARTAN 24/26 MG TABLET 1 EACH PO ×2 (09:09→22:35)
[2024-01-06] MEDS: Pantoprazole Sodium 20 MG Tablet PO (09:09)
[2024-01-06] MEDS: Multivitamin (Healthy Eyes) Capsule 1 CAP PO (09:09)
[2024-01-06] MEDS: Senna/Docusate Sodium 1 Tablet 2 TABLET PO ×2 (09:09→22:35)
[2024-01-06] MEDS: Menthol/Lanolin/Calamine/Znox 113 GM Tube 1 APPLIC TOPICAL ×2 (09:10→22:35)
--- NOTE | 2024-01-06 11:20 | CON.PCM_ITS ---
Assessment & Plan Assessment/Plan (1) Right humeral fracture: (2) Right acetabular fracture: PLAN: Plan I do not have any images of either the humerus or the acetabulum or reports to recommend any orthopedic intervention at this time. I did ask our nursing department to try to obtain CT scan report of his right hip. In addition it would be nice to see the orthopedic consultation that was performed. Further recommendations following images and reports. HPI Consult Data Date of Consult: 01/06/24 HPI Narrative HPI Narrative: ADA JUNE, is a 78 M who presents after being transferred from an outside hospital after sustaining a ground-level fall at his assisted living facility his rollator slipped out in front of him when he was attempting to open a recedes peanut butter cup. He subsequently fell onto his right side injuring his right upper extremity and his right pelvis. Reports indicate he had a humeral fracture of some sort on the right side of note he had a left proximal humerus fracture this past March treated conservatively. Patient is right- hand dominant. We do not have imaging or documentation from orthopedics where he was seen. In addition he was noted to have a CT scan demonstrating a nondisplaced acetabular fracture on the right side. Patient states he was instructed to be weightbearing as tolerated on the side again we do not have documentation of this however the patient is cognizant and lucid and I believe he is aware of his situation. At this point he does have pain in his right humerus about the anterior aspect more proximally he does have have pain in his right hip as well. [facility] Medical History (Updated 01/06/24 @ 11:[address] 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 Diabetes mellitus, type II Caregiver stress Hydronephrosis Depression Ulnar neuropathy Osteoporosis Vitamin D deficiency GERD (gastroesophageal reflux disease) Hyperlipidemia Essential hypertension New onset atrial fibrillation Home Medications ?Medication ?Instructions ?Recorded ?Last Taken ?Type atorvastatin 20 mg tablet 20 mg PO QHS CHOLESTEROL 04/05/19 04/01/23 History omeprazole 20 mg capsule,delayed 20 mg PO DAILY.TCU ACID REFLUX 10/09/21 04/01/23 History release cholecalciferol (vitamin D3) 125 125 mcg PO DAILY SUPPLEMENT 04/02/23 04/01/23 History mcg (5,000 unit) capsule melatonin 3 mg tablet 3 mg PO QHS SLEEP 04/02/23 04/01/23 History hydralazine 25 mg tablet 50 mg (2 x 25 mg) PO TID 30 days 04/16/23 Unknown Rx #180 tabs oxycodone 5 mg tablet 5 mg PO Q4H PRN PRN Pain Score 04/16/23 Unknown Rx 4-10 7 days #42 tabs polysaccharide iron complex 150 mg 150 mg PO DAILY Supplement 30 days 04/16/23 Unknown Rx iron capsule (Ferrex) #30 caps sennosides 8.6 mg-docusate sodium 2 tab PO BID 30 days #120 tabs 04/16/23 Unknown Rx 50 mg tablet (Stool Softener-Stimulant Laxative) apixaban 5 mg tablet (Eliquis) 5 mg PO BID thinner 06/30/23 01/04/24 History furosemide 40 mg tablet 40 mg PO BID water pill 06/30/23 Unknown History acetaminophen 500 mg tablet 1,000 mg PO Q8 PRN pain 01/04/24 01/03/24 History alendronate 70 mg tablet 70 mg PO QWEEK supplement 01/04/24 Unknown History aluminum-magnesium hydroxide 200 15 ml PO Q6H PRN stomach 01/04/24 Unknown History mg-200 mg/5 mL oral suspension amlodipine 10 mg tablet 10 mg PO DAILY blood pressure 01/04/24 Unknown History amlodipine 5 mg tablet 10 mg PO DAILY Blood pressure 01/04/24 Unknown History ascorbic acid (vitamin C) 500 mg 500 mg PO DAILY supplement 01/04/24 Unknown History tablet diphenhydramine HCl 25 mg tablet 25 mg PO QHS PRN allergy symptoms 01/04/24 Unknown History (Banophen) glimepiride 1 mg tablet 1 mg PO DAILY dm 01/04/24 Unknown History hydralazine 50 mg tablet 50 mg PO Q8H PRN blood pressure 01/04/24 Unknown History lutein 25 mg-zeaxanthin 5 mg 1 cap PO DAILY Supplement 01/04/24 Unknown History capsule magnesium hydroxide 400 mg/5 mL 2,400 mg PO DAILY PRN constipation 01/04/24 Unknown History oral suspension metoprolol succinate 25 mg 25 mg PO DAILY Blood pressure 01/04/24 Unknown History tablet,extended release 24 hr mirtazapine 15 mg tablet 15 mg PO QHS Depression 01/04/24 Unknown History sacubitril 24 mg-valsartan 26 mg 1 tab PO BID CHF 01/04/24 Unknown History tablet (Entresto) spironolactone 25 mg tablet 25 mg PO DAILY BLOOD PRESSURE 01/04/24 Unknown History Allergy/AdvReac Type Severity Reaction Status Date / Time No Known Allergies Allergy Verified 06/30/23 13:48 Family History Mother , when patient was age 14, metastatic breast cancer Breast cancer Father , age 93 , unknown cause No problems noted. Surgical History History of diana hole surgery History of coronary artery bypass surgery (~07/27/21) History of mitral valve repair (~07/27/21) History of aortic valve replacement with bioprosthetic valve (~07/27/21) History of right and left heart catheterization (LHC) (~06/05/21) History of arthroplasty of right ankle History of total left hip arthroplasty abdominal incisional hernia repair (2011) History of ureter repair (2010) Social History (Updated 01/04/24 @ 13:[address] Jesse Mixon MD) household members: none and other details: [facility] housing: assisted living facility Smoking Status: Former smoker how long ago did patient quit smokin years ago alcohol intake: current alcohol intake frequency: holidays/special occasions only substance use type: does not use caffeine: Yes Type: coffee Number of servings: 4 Physical Exam Const alert, oriented x3 and no apparent distress General Appearance: cooperative and comfortable Extremity Extremity Narrative: His right shoulder is in a sling. There is ecchymosis from the mid humerus down his compartments are soft he is tender to palpation of the anterior superior humeral area. He is nontender in the elbow forearm wrist or hand. Is neurovascular intact radial median ulnar AIN PIN nerves axillary nerve. There is no open wounds. In regards to his right hip he does not have any significant pain with logroll there is no ecchymosis erythema or open wounds that I can appreciate around his hip although I did not roll him completely over. His compartments are soft he is neurovascular intact right lower extremity EHL tibialis anterior gastrocsoleus intact sensation light touch 2 out of 4 pedal pulse. Lab / Micro Data 01/06/24 05:12 01/06/24 05:12 Labs: Laboratory Results - last 24 hr 01/06/24 05:12: WBC 19.5 H, RBC 3.69 L, Hgb 10.0 L, Hct 31.8 L, MCV 86.2, MCH 27.1, MCHC 31.4 L, RDW Std Deviation 50.1 H, RDW Coeff of Elayne 15.8 H, Plt Count 390, MPV 9.8, Immature Gran % (Auto) 1.000 H, Neut % (Auto) 81.9 H, Lymph % (Auto) 9.1 L, [place] % (Auto) 6.9, Eos % (Auto) 0.8, Baso % (Auto) 0.3, Absolute Neuts (auto) 16.0 H, Absolute Lymphs (auto) 1.78, Nucleated RBC % 0, Sodium 132 L, Potassium 4.3, Chloride 101, Carbon Dioxide 22.0, Anion Gap 10, BUN 75 H, C reatinine 1.94 H, Estim Creat Clear Calc 36.30, Est GFR (MDRD) Af Amer 43 L, Est GFR (MDRD) Non-Af 36 L, BUN/Creatinine Ratio 38.7 H, Glucose 100, Calcium 8.6 01/06/24 05:59: POC Glucose 92
[2024-01-06] MEDS: Acetaminophen 500 MG Tablet 1000 MG PO (11:46)
--- NOTE | 2024-01-06 11:50 | PCM.PN.DRR ---
Documented by User: Kristine Black 01/06/24 12:15 TCU RX Drug Regimen Review Subjective/Objective Subjective/Objective Subjective: TCU Admission. 78 YOM hospitalized for right humerus fracture, right nondisplaced acetabular fracture, both treated nonsurgically. Admitted to TCU with debility for strengthening and rehabilitation. Objective: Allergies No Known Allergies Allergy (Verified 06/30/23 13:48) Current Medications Generic Name Dose Route Start Last Admin Trade Name Freq PRN Reason Stop Dose Admin Acetaminophen 1,000 mg 01/04/24 12:57 01/05/24 20:41 Acetaminophen 500 Mg Tablet PO 1,000 mg Q6H PRN PRN Administration Pain Score 1-3 Al Hydroxide/Mg Hydroxide 15 ml 01/04/24 14:19 Mag Hydrox/Al Hydrox/Simeth 30 Ml Udc PO Q6H PRN stomach Alendronate Sodium 70 mg 01/07/24 07:00 Alendronate Sodium 70 Mg Tablet PO QWEEK [facility] Amlodipine Besylate 10 mg 01/05/24 10:00 01/06/24 09:09 Amlodipine 10 Mg Tablet PO 10 mg DAILY CRAIG Administration Protocol Apixaban 5 mg 01/04/24 22:00 01/06/24 09:09 Apixaban 5 Mg Tablet PO 5 mg BID CRAIG Administration Ascorbic Acid 500 mg 01/05/24 10:00 01/06/24 09:09 Ascorbic Acid 500 Mg Tablet PO 500 mg DAILY CRAIG Administration Atorvastatin Calcium 20 mg 01/04/24 22:00 01/05/24 20:42 Atorvastatin Calcium 20 Mg Tablet PO 20 mg QHS CRAIG Administration Calamine/Phenol 1 applic 01/05/24 14:50 01/06/24 09:10 Menthol/Lanolin/Calamine/Znox 113 Gm Tube TOPICAL 1 applic BID CRAIG Administration Protocol Cholecalciferol 125 mcg 01/05/24 10:00 01/06/24 09:09 Cholecalciferol (Vit D3) 125 Mcg Capsule (5,000 Units) PO 125 mcg DAILY CRAIG Administration Furosemide 40 mg 01/04/24 14:00 01/06/24 05:18 Furosemide 40 Mg Tablet PO 40 mg BIDLX CRAIG Administration Protocol Glimepiride 1 mg 01/05/24 08:00 01/05/24 09:09 Glimepiride 1 Mg Tablet PO 1 mg DAILYCM CRAIG Administration Hydralazine HCl 50 mg 01/04/24 12:39 01/04/24 23:25 Hydralazine 50 Mg Tablet PO 50 mg Q8H PRN Administration blood pressure Protocol Magnesium Citrate 300 ml 01/04/24 13:12 Magnesium Citrate 300 Ml PO DAILY PRN Constipation Metoprolol Succinate 25 mg 01/05/24 10:00 01/06/24 09:09 Metoprolol(Xl)Succ 25 Mg Tablet PO 25 mg DAILY CRAIG Administration Protocol Mirtazapine 15 mg 01/04/24 22:00 01/05/24 20:42 Mirtazapine 15 Mg Tablet PO 15 mg QHS CRAIG Administration Multivitamins/Minerals 1 cap 01/05/24 10:00 01/06/24 09:09 Multivitamin (Healthy Eyes) Capsule PO 1 cap DAILY CRAIG Administration Oxycodone HCl 5 mg 01/04/24 12:56 01/06/24 05:17 Oxycodone 5 Mg Tablet PO 5 mg Q4H PRN PRN Administration Pain Score 6-10 or Pre PT/OT Pantoprazole Sodium 20 mg 01/05/24 10:00 01/06/24 09:09 Pantoprazole Sodium 20 Mg Tablet PO 20 mg DAILY CRAIG Administration Polysaccharide Iron Complex 150 mg 01/05/24 10:00 01/06/24 09:09 Iron Polysaccharide Complex 150 Mg Capsule PO 150 mg DAILY CRAIG Administration Sacubitril/Valsartan 1 each 01/04/24 22:00 01/06/24 09:09 Sacubitril/Valsartan 24/26 Mg Tablet PO 1 each BID CRAIG Administration Senna/Docusate Sodium 2 tablet 01/04/24 22:00 01/06/24 09:09 Senna/Docusate Sodium 1 Tablet PO 2 tablet BID CRAIG Administration Sodium Chloride 10 - 40 ml 01/04/24 12:35 01/06/24 05:17 0.9% Saline Lock 10 Ml Syringe IV 10 ml UD PRN Administration SALINE FLUSH Spironolactone 25 mg 01/05/24 10:00 01/06/24 09:09 Spironolactone 25 Mg Tablet PO 25 mg DAILY CRAIG Administration Protocol Tramadol HCl 50 mg 01/04/24 12:56 01/05/24 18:23 Tramadol 50 Mg Tablet PO 50 mg Q6H PRN PRN Administration Pain Score 4-5 or Pre PT/OT Tuberculin PPD 0.1 ml 01/12/24 10:00 Tuberculin,Purif.Prot.Deriv. 50 Tu/Ml Vial ID 01/12/24 10:01 X1 ONE Problem List Right acetabular fracture (Acute) History of subdural hemorrhage (Acute) Vitamin D deficiency (Acute) Essential (primary) hypertension (Acute) Closed right acetabular fracture (Acute) Right humeral fracture (Acute) BPH (benign prostatic hyperplasia) (Acute) Insomnia (Acute) Iron deficiency anemia (Acute) GERD (gastroesophageal reflux disease) (Acute) Atrial fibrillation (Acute) Hyperlipidemia (Acute) Debility (Acute) Vital Signs Temp Pulse Resp BP Pulse Ox O2 Del Method 98.1 F 61 16 119/55 L 97 Room Air 01/05/24 09:06 01/06/24 09:09 01/05/24 20:48 01/06/24 09:09 01/05/24 20:49 01/05/24 20:49 Oxygen Delivery Method Room Air Weight: 88.405 kg Body Mass Index (BMI) 24.3 Sodium 132 mmol/L (136-145) L 01/06/24 05:12 Potassium 4.3 mmol/L (3.5-5.1) 01/06/24 05:12 Chloride 101 mmol/L (98-107) 01/06/24 05:12 Carbon Dioxide 22.0 mmol/L (21.0-32.0) 01/06/24 05:12 Anion Gap 10 (5-15) 01/06/24 05:12 BUN 75 mg/dL (7-18) H 01/06/24 05:12 Creatinine 1.94 mg/dL (0.70-1.30) H 01/06/24 05:12 Est GFR (MDRD) Af Amer 43 mL/min (>60) L 01/06/24 05:12 Est GFR (MDRD) Non-Af 36 mL/min (>60) L 01/06/24 05:12 BUN/Creatinine Ratio 38.7 RATIO (10-20) H 01/06/24 05:12 Glucose 100 mg/dL (74-106) 01/06/24 05:12 Assessment/Plan: 1. Pain: acetaminophen 1000mg PO Q6H PRN pain 1-3, tramadol 50mg PO Q6H PRN pain 4-5 and oxycodone 5mg PO Q4H PRN pain 6-10. Resident has had 3 doses of acetaminophen, 1 dose of tramadol and 3 doses of oxycodone for pain scores of 2-7 in the shoulder/arm/generalized pain. Please continue to monitor for increased pain, PRN usage, constipation, renal function and respiratory depression. 2. Bowel: senna/docusate 2T PO BID and magnesium citrate 300mL PO daily PRN constipation. Resident has not had any PRN doses. Please continue to monitor for constipation and PRN usage. Last documented bowel movement was 01/06/24. 3. Hypertension/atrial fibrillation/HFrEF: apixaban 5mg PO BID, metoprolol succinate 25mg PO daily, amlodipine 10mg PO daily, Entresto 24/26mg PO BID, spironolactone 25mg PO daily, furosemide 40mg PO BID and hydralazine 50mg PO Q8H PRN SBP >150. Resident has had 1 PRN dose. Please continue to monitor S/S of bleeding, hemoglobin (last 10g/dL), BP (last 119/55), HR (last 61), swelling, potassium (last 4.3mmol/L), PRN usage and renal function. 4. Hyperlipidemia: atorvastatin 20mg PO QHS. Please consider ordering a lipid panel as the last panel was from 12/2022. Thanks. Please continue to monitor for muscle pain and LFTs (last 04/03/23). 5. Iron deficiency anemia: Ferrex 150mg PO DAILYCM and ascorbic acid 500mg PO daily. Please continue to monitor hemoglobin (last 10g/dL), constipation, dark stools and iron studies (last 04/04/23). 6. GERD: pantoprazole 20mg PO daily and Mylanta II 15mL PO Q6H PRN stomach. Please continue to monitor for S/S of GERD, PRN usage (no doses given), diarrhea (BEERs medication). 7. Diabetes mellitus II: glimepiride 1mg PO daily. Please consider ordering a hemoglobin A1c as the last is from 04/03/23. Thanks. Please continue to monitor for S/S for hypoglycemia (BEERs) and glucose (last 100mg/dL). 8. Osteoporosis: alendronate 70mg PO weekly. Please continue to monitor BMD, renal function, jaw pain and GI upset. Please administer first thing in the morning on an empty stomach with a full glass of water and remain upright for at least 30 minutes following administration. 9. Macular degeneration/vitamin D deficiency: healthy eyes 1C PO daily and cholecalciferol 125mcg PO daily. Please consider ordering a vitamin D level as the last level is from 12/2022. Thanks. Assessment/Plan for indications treated with psychotropic medications: 1. Depression/insomnia/appetite loss: mirtazapine 15mg PO QHS. Please see physician note regarding GDR. Please continue to monitor for suicidal ideation (black box warning), appetite improvement, excessive drowsiness and sodium (last 132mmol/L). Medical chart and medication regimen reviewed. The following medication irregularities or issues were identified: 1. Atorvastatin 20mg PO QHS. Please consider ordering a lipid panel as the last panel was from 12/2022. Thanks. 2. Glimepiride 1mg PO daily. Please consider ordering a hemoglobin A1c as the last is from 04/03/23. Thanks. 3. Cholecalciferol 125mcg PO daily. Please consider ordering a vitamin D level as the last level is from 12/2022. Thanks. Date Date of Note: 01/06/24 Documented by User: Dr. Jesse Mixon MD 01/06/24 13:40 TCU RX Drug Regimen Review Provider Comments Provider responsibility Provider Comments to Recommendations by Pharmacy Agree
[2024-01-06 12:24] VITALS: BMI 24.3
--- NOTE | 2024-01-06 12:37 | NURSING ---
Called [facility] radiology, they will push CT images to [facility] system so Dr. Slaughter can see them. Reports will be faxed to U.
--- NOTE | 2024-01-06 13:35 | RAD_ITS ---
STUDY: X-RAY - RIGHT HUMERUS REASON FOR EXAM: Male, 78 years old. F/U of Right Humerus Fx TECHNIQUE: 2 view(s) of the humerus. COMPARISON: None. FINDINGS: Acute nondisplaced oblique fracture of the neck of the humerus. There is no demonstrated fracture or osseous destructive process. There is no demonstrated soft tissue abnormality. RAD/Humerus min 2 Views IMPRESSION: Acute nondisplaced humeral neck fracture. Electronically Signed: Darnell Cutler MD at 8:54 EST ,
--- NOTE | 2024-01-06 13:35 | RAD_ITS ---
STUDY: X-RAY - PELVIS AND RIGHT HIP REASON FOR EXAM: Male, 78 years old. F/U of Right hip Fx -- AP and Judet views TECHNIQUE: 3 views of the pelvis and hip. COMPARISON: None. FINDINGS: There is a non-specific bowel gas pattern. Normal visualized soft tissue structures. Normal bilateral iliac wings, sacroiliac joints and visualized sacrum. Normal bilateral superior and inferior pubic rami. Normal pubic symphysis. Normal bilateral ischial tuberosities. Normal visualized femoral head. Normal acetabulum. Normal hip joint. RAD/Hip uni 4+ views with Pelvis IMPRESSION: Normal x-ray examination of the pelvis and hip. Electronically Signed: Darnell Cutler MD at 8:56 EST ,
[2024-01-06 13:49] LABS: Pathologist Review Reviewed
[2024-01-06 14:23] VITALS: BP 116/66; PULSE 52; RESP 16; TEMP 35.7; O2SAT 96
[2024-01-06 14:45] LABS: Cholesterol 111 mg/dL (200); High Density Lipoprotein 27 mg/dL; Triglycerides 123 mg/dL; Very Low Density Lipoprotein 25 mg/dL (5-40)
[2024-01-06 14:50] LABS: Vitamin D,25 Hydroxy 55.7 ng/mL
--- NOTE | 2024-01-06 15:29 | CASEMGMT ---
Social Work CHANO phoned [facility] and spoke with Marli ([phone]) to inquire about clinicals and pts LOF to return. Marli requested SW resend clinicals, but stated pt cannot be a marino lift to return. Pt can be a x2 assist if he is making good progress to become a one assist. Marli stated she would complete an onsite prior to DC to ensure pt can return. CHANO educated no DC date, but insurance update is 01/07, and if issued LCD, onsite to be 01/08. Marli expressed understanding. CHANO resent clinicals via [facility]. Will continue to follow. GLORIA WhiteW
[2024-01-06 15:34] LABS: Hemoglobin A1c 6.3 % (3.8-5.6)
[2024-01-06 16:44] LABS: Mucous, Urine 0 SEEN /hpf (<or=2+)
[2024-01-06 16:48] LABS: Color, Urine Yellow (Yellow); Glucose, Dipstick Normal (Normal); Ketone-Dipstick Negative (Negative); Leukocyte Esterase-Dipstick 500 /ul (Negative); Nitrite-Dipstick Negative (Negative); Occult Blood-Urine Negative /ul (Negative); Protein-Dipstick 15 mg/dl (Negative); Urine Bilirubin Dipstick Negative (Negative); Urine Clarity Sl. Cloudy (Clear); Urine Urobilinogen 1 mg/dl (Normal)
[2024-01-06 17:13] LABS: Bacteria 3+ /hpf (None Seen); Hyaline Cast 0-5 SEEN /lpf (0-5); Red Blood Cells-Urine 0-5 SEEN /hpf (0-5); Squamous Epithelial Cells - UA 0-5 SEEN /hpf (0-5); Transitional Epithelial - Ur 0-5 SEEN /hpf (0-5); White Blood Cells 25-50 SEEN /hpf (0-5)
[2024-01-06 20:35] VITALS: PULSE 61; O2SAT 94
[2024-01-06] MEDS: Atorvastatin Calcium 20 MG Tablet PO (22:35)
[2024-01-06] MEDS: Mirtazapine 15 MG Tablet PO (22:35)
[2024-01-06] MEDS: Ciprofloxacin 250 MG Tablet PO (22:35)
[2024-01-07] MEDS: Acetaminophen 500 MG Tablet 1000 MG PO ×3 (02:34→20:26)
[2024-01-07] MEDS: oxyCODONE 5 MG Tablet PO ×2 (02:35→06:37)
[2024-01-07] MEDS: traMADol 50 MG Tablet PO ×2 (05:18→13:27)
[2024-01-07] MEDS: Ciprofloxacin 250 MG Tablet PO ×2 (05:19→20:26)
[2024-01-07 05:40] LABS: Absolute Lymphocyte Count 1.49 X10^3/uL (0.83-4.51); Absolute Neutrophil Count 11.5 X10^3/uL (2.0-7.7); Basophil# 0.06 X10^3/uL; Basophil% 0.4 % (0-1); Eosinophil# 0.13 X10^3/uL; Eosinophils% 0.9 % (0-5); Hemoglobin 10.2 g/dL (13.0-16.5); Lymphocyte # 1.49 X10^3/ul (0.83-4.51); Lymphocyte % 10.3 % (19-41); Mean Corp Hgb Conc 31.9 g/dL (32-36); Mean Corpuscular Hgb 27.3 pg (27.0-32.0); Mean Corpuscular Volume 85.8 fL (80-94); Mean Platelet Vol. 9.7 fl (6.2-12.0); Monocyte# 1.22 X10^3/uL; Monocyte% 8.4 % (0-10); NRBC Flagged by Analyzer 0 % (0-5); Neutrophil # 11.46 X10^3/uL (2.7-7.7); Neutrophil % 78.8 % (47-70); Platelet Count 429 K/mm3 (150-450); RBC Distribution Width CV 15.8 % (11.6-14.6); RBC Distribution Width SD 49.7 fl (35.1-43.9); Red Blood Count 3.73 M/mm3 (4.6-6.2); White Blood Count 14.5 K/mm3 (4.4-11.0)
[2024-01-07 06:19] LABS: Bedside Glucose 99 mg/dL (74-106)
[2024-01-07] MEDS: Alendronate Sodium 70 MG Tablet PO (06:39)
[2024-01-07 06:46] LABS: Anion Gap 10 (5-15); BUN 104 mg/dL (7-18); BUN/Creat Ratio 49.5 RATIO (10-20); Calcium,Total 8.7 mg/dL (8.5-10.1); Chloride 101 mmol/L (98-107); EST Glomerular Filtration Rate 32 mL/min (>60); Est Glom Filt Rate - Afr Amer 39 mL/min (>60); Estimated Creatinine Clearance 33.53 ml/min; Glucose 99 mg/dL (74-106); Potassium 4.6 mmol/L (3.5-5.1); Sodium Level 131 mmol/L (136-145)
--- NOTE | 2024-01-07 06:58 | NURSING ---
Lab calls w/ BUN at 104. Left note for Dr. Mixon to review this am.
--- NOTE | 2024-01-07 07:01 | PCM.PN.ORT ---
Objective Data Objective Data Vital Signs: Vital Signs Temp Pulse Resp BP Pulse Ox O2 Del Method 96.3 F L 61 16 116/66 94 Room Air 01/06/24 14:23 01/06/24 20:35 01/06/24 14:23 01/06/24 14:23 01/06/24 20:35 01/06/24 20:35 Oxygen Delivery Method Room Air Weight: 195 lb 12.8 oz Body Mass Index (BMI) 24.3 Intake & Output: Intake and Output for Last 24 Hours 01/05/24 01/06/24 01/07/24 23:59 23:59 23:59 Intake Total 460 / 460 240 / 240 150 / 150 Output Total 120 / 120 Balance 460 / 460 120 / 120 150 / 150 Lab / Micro Data 01/07/24 05:14 01/07/24 05:14 Labs: Laboratory Results - last 24 hr 01/05/24 05:10: Diff Path Review Reviewed 01/06/24 05:12: Hemoglobin A1c 6.3 H, Triglycerides 123, Cholesterol 111, LDL Cholesterol 59, VLDL Cholesterol 25, HDL Cholesterol 27 L, Vitamin D 25-Hydroxy 55.7 01/06/24 16:30: Urine Color Yellow, Urine Clarity Sl. Cloudy, Urine pH 5.0, Ur Specific [place] 1.020, Urine Protein 15 H, Urine Glucose (UA) Normal, Urine Ketones Negative, Urine Occult Blood Negative, Urine Nitrite Negative, Urine Bilirubin Negative, Urine Urobilinogen 1 H, Ur Leukocyte Esterase 500 H, Urine RBC 0-5 SEEN, Urine WBC 25-50 SEEN, Ur Squamous Epith Cells 0-5 SEEN, Ur Transition Epith Cell 0-5 SEEN, Urine Bacteria 3+, Hyaline Casts 0-5 SEEN, Urine Mucus 0 SEEN 01/07/24 05:14: WBC 14.5 H, RBC 3.73 L, Hgb 10.2 L, Hct 32.0 L, MCV 85.8, MCH 27.3, MCHC 31.9 L, RDW Std Deviation 49.7 H, RDW Coeff of Elayne 15.8 H, Plt Count 429, MPV 9.7, Immature Gran % (Auto) 1.200 H, Neut % (Auto) 78.8 H, Lymph % (Auto) 10.3 L, [place] % (Auto) 8.4, Eos % (Auto) 0.9, Baso % (Auto) 0.4, Absolute Neuts (auto) 11.5 H, Absolute Lymphs (auto) 1.49, Nucleated RBC % 0, Sodium 131 L, Potassium 4.6, Chloride 101, Carbon Dioxide 20.0 L, Anion Gap 10, BUN 104 H*, Creatinine 2.10 H, Estim Creat Clear Calc 33.53, Est GFR (MDRD) Af Amer 39 L, Est GFR (MDRD) Non-Af 32 L, BUN/Creatinine Ratio 49.5 H, Glucose 99, Calcium 8.7 01/07/24 05:57: POC Glucose 99 Assessment & Plan Assessment/Plan (1) Right humeral fracture: QUALIFIERS: Encounter type: initial encounter Humerus Location: proximal Fracture type: closed Fracture alignment: displaced (2) Right acetabular fracture: PLAN: Plan Reviewed images of right humerus and hip. In regards to right proximal humerus fracture recommend continued sling immobilization encourage elbow range of motion 3 times a day start pendulum shoulder range of motion when pain allows no active shoulder range of motion encourage wrist and finger range of motion to prevent swelling. In regards to the hip acetabular fracture still have not received CT CAP scan report but based on images nondisplaced fracture will not change previous orders of weightbearing status that was recommended by outside facility orthopedic team. Recommend repeat x-ray 4 weeks for both injuries.
--- NOTE | 2024-01-07 07:32 | US_ITS ---
STUDY: RENAL ULTRASOUND - COMPLETE REASON FOR EXAM: Male, 78 years old. LATANYA TECHNIQUE: Ultrasound evaluation of the kidneys was performed with real-time and static sharma-scale imaging. COMPARISON: Comparison is made with prior study dated 2013. FINDINGS: RIGHT KIDNEY: Normal location of the right kidney, which is normal in size. The right kidney measures 11.6 cm x 5.4 cm x 4.8 cm. There is a normal cortex of the right kidney. The renal cortex measures 1.5 cm. There is no right renal mass or cyst. There are no right renal calculi. There is no right hydronephrosis. DISTAL RIGHT URETER: There is non-visualization of the distal right ureter. There is no demonstrated right ureterovesical junction calculus. There is a visualized right ureteral jet. LEFT KIDNEY: Normal location of the left kidney, which is normal in size. The left kidney measures 10.8 cm x 5.1 cm x 5.4 cm. There is a normal cortex of the left kidney. The renal cortex measures 1.4 cm. There is no left renal mass or cyst. There are no left renal calculi. There is no left hydronephrosis. DISTAL LEFT URETER: There is non-visualization of the distal left ureter. There is no demonstrated left ureterovesical junction calculus. There is a visualized left ureteral jet. BLADDER: The distended urinary bladder has a volume of 141 ml. Echogenic debris is seen within the bladder. There is a normal wall thickness of the distended urinary bladder. There is no demonstrated mass within the urinary bladder. There are no demonstrated bladder calculi. US/Kidney and Bladder IMPRESSION: Normal ultrasound of the kidneys and urinary bladder. Electronically Signed: Jake Caceres MD at 14:37 EST ,
[2024-01-07] MEDS: Cholecalciferol (Vit D3) 125 MCG CAPSULE (5,000 UNITS) PO (08:16)
[2024-01-07] MEDS: Pantoprazole Sodium 20 MG Tablet PO (08:16)
[2024-01-07] MEDS: Glimepiride 1 MG Tablet PO (08:17)
[2024-01-07] MEDS: Ascorbic Acid 500 MG Tablet PO (08:17)
[2024-01-07] MEDS: Iron Polysaccharide Complex 150 MG CAPSULE PO (08:17)
[2024-01-07] MEDS: Senna/Docusate Sodium 1 Tablet 2 TABLET PO ×2 (08:17→20:29)
[2024-01-07] MEDS: Multivitamin (Healthy Eyes) Capsule 1 CAP PO (08:18)
[2024-01-07] MEDS: Menthol/Lanolin/Calamine/Znox 113 GM Tube 1 APPLIC TOPICAL ×2 (08:19→20:28)
[2024-01-07] MEDS: APIXABAN 5 MG TABLET PO ×2 (08:20→20:27)
[2024-01-07 08:26] VITALS: BP 118/48; PULSE 52; RESP 18; TEMP 36.8; O2SAT 97
[2024-01-07] MEDS: 0.9% Normal Saline (1000mL) 1,000 ML 75 ML IV (09:43)
--- NOTE | 2024-01-07 10:16 | CASEMGMT ---
Social Work Plan of care meeting held today with pt present and pt's son on speaker phone. PT/OT/ST/Nutrition/Activities updated on pt's progress since admission. Pt lives at [facility]. The [facility] has stated they can take pt back at an assist of 2 but not with marino lift. Pt is currently using a marino for transfers and therapy has a goal for transfers without the marino. CHANO updated pt that [facility] next review date is 01/07 and continued stay is not guaranteed. CHANO provided pt with written communication on insurance process and copay coverage during stay. Pt's son states that he has been working with the [place] [employer] [place] [facility] Aging to get a lift chair for the patient. Process was started over 6 months ago. Son requesting SW contact [facility] to determine status of this lift chair. Will continue with treatment plan at this time. SAADIA Friend
[2024-01-07 10:40] VITALS: BP 111/63; PULSE 50
--- NOTE | 2024-01-07 10:54 | NURSING ---
Pt's bp 111/63, p [address] Mixon, received order to hold following AM medications: Entresto, Spironolactone, Metoprolol, Amlodipine.
--- NOTE | 2024-01-07 13:23 | CASEMGMT ---
Social Work Phone call placed to the [place] [facility] to discuss obtaining lift chair for patient. VM left for Neida Gaspar ([phone]) requesting return call to discuss progress with chair. SAADIA Torres
--- NOTE | 2024-01-07 13:30 | NURSING ---
Dr. Mixon updated that pt has not voided since 0200 pt bladder scanned for 253ml. N.O. received to insert Herring cath for retention. Order read back.
[2024-01-07] MEDS: Tamsulosin HCl 0.4 MG Capsule PO (18:21)
--- NOTE | 2024-01-07 19:04 | CON.PCM.RE_ITS ---
Assessment & Plan Assessment/Plan (1) LATANYA (acute kidney injury): PLAN: baseline Cr is 0.9 normal now 2.1 renal US pending Bp borderline hold lasix hold aldactone if BP remains low will hold entresto as well HPI Consult Data Date of Consult: 01/07/24 HPI Narrative Reason for Consultation: latanya HPI Narrative: ADA JUNE, is a 78 M who is admitted in TCU for rehab after recent hospital stay at [facility]. renal consulted for LATANYA. normal baseline as of Apr. now around 2.1. denies any voiding issues. history of CHF. currently on goal directed therapy, entresto aldactone and lasix. Bp is borderline low. [facility] Medical History (Updated 01/07/24 @ 19:[address] Chantell Rob MD) Hepatitis Former smoker Lower extremity edema Nonrheumatic aortic (valve) stenosis Non-rheumatic mitral valve stenosis Non-rheumatic tricuspid valve insufficiency Non-rheumatic mitral regurgitation Atherosclerotic heart disease of [place] coronary artery without angina pectoris Paroxysmal atrial fibrillation custodial current use of anticoagulant Diabetes mellitus, type II Caregiver stress Hydronephrosis Depression Ulnar neuropathy Osteoporosis Vitamin D deficiency GERD (gastroesophageal reflux disease) Hyperlipidemia Essential hypertension New onset atrial fibrillation Home Medications ?Medication ?Instructions ?Recorded ?Last Taken ?Type atorvastatin 20 mg tablet 20 mg PO QHS CHOLESTEROL 04/05/19 04/01/23 History omeprazole 20 mg capsule,delayed 20 mg PO DAILY.TCU ACID REFLUX 10/09/21 04/01/23 History release cholecalciferol (vitamin D3) 125 125 mcg PO DAILY SUPPLEMENT 04/02/23 04/01/23 History mcg (5,000 unit) capsule melatonin 3 mg tablet 3 mg PO QHS SLEEP 04/02/23 04/01/23 History hydralazine 25 mg tablet 50 mg (2 x 25 mg) PO TID 30 days 04/16/23 Unknown Rx #180 tabs oxycodone 5 mg tablet 5 mg PO Q4H PRN PRN Pain Score 04/16/23 Unknown Rx 4-10 7 days #42 tabs polysaccharide iron complex 150 mg 150 mg PO DAILY Supplement 30 days 04/16/23 Unknown Rx iron capsule (Ferrex) #30 caps sennosides 8.6 mg-docusate sodium 2 tab PO BID 30 days #120 tabs 04/16/23 Unknown Rx 50 mg tablet (Stool Softener-Stimulant Laxative) apixaban 5 mg tablet (Eliquis) 5 mg PO BID thinner 06/30/23 01/04/24 History furosemide 40 mg tablet 40 mg PO BID water pill 06/30/23 Unknown History acetaminophen 500 mg tablet 1,000 mg PO Q8 PRN pain 01/04/24 01/03/24 History alendronate 70 mg tablet 70 mg PO QWEEK supplement 01/04/24 Unknown History aluminum-magnesium hydroxide 200 15 ml PO Q6H PRN stomach 01/04/24 Unknown History mg-200 mg/5 mL oral suspension amlodipine 10 mg tablet 10 mg PO DAILY blood pressure 01/04/24 Unknown History amlodipine 5 mg tablet 10 mg PO DAILY Blood pressure 01/04/24 Unknown History ascorbic acid (vitamin C) 500 mg 500 mg PO DAILY supplement 01/04/24 Unknown History tablet diphenhydramine HCl 25 mg tablet 25 mg PO QHS PRN allergy symptoms 01/04/24 Unknown History (Banophen) glimepiride 1 mg tablet 1 mg PO DAILY dm 01/04/24 Unknown History hydralazine 50 mg tablet 50 mg PO Q8H PRN blood pressure 01/04/24 Unknown History lutein 25 mg-zeaxanthin 5 mg 1 cap PO DAILY Supplement 01/04/24 Unknown History capsule magnesium hydroxide 400 mg/5 mL 2,400 mg PO DAILY PRN constipation 01/04/24 Unknown History oral suspension metoprolol succinate 25 mg 25 mg PO DAILY Blood pressure 01/04/24 Unknown History tablet,extended release 24 hr mirtazapine 15 mg tablet 15 mg PO QHS Depression 01/04/24 Unknown History sacubitril 24 mg-valsartan 26 mg 1 tab PO BID CHF 01/04/24 Unknown History tablet (Entresto) spironolactone 25 mg tablet 25 mg PO DAILY BLOOD PRESSURE 01/04/24 Unknown History Allergy/AdvReac Type Severity Reaction Status Date / Time No Known Allergies Allergy Verified 06/30/23 13:48 Family History Mother , when patient was age 14, metastatic breast cancer Breast cancer Father , age 93 , unknown cause No problems noted. Surgical History History of diana hole surgery History of coronary artery bypass surgery (~07/27/21) History of mitral valve repair (~07/27/21) History of aortic valve replacement with bioprosthetic valve (~07/27/21) History of right and left heart catheterization (LHC) (~06/05/21) History of arthroplasty of right ankle History of total left hip arthroplasty abdominal incisional hernia repair (2011) History of ureter repair (2010) Social History (Updated 01/04/24 @ 13:[address] Jesse Mixon MD) household members: none and other details: [facility] housing: assisted living facility Smoking Status: Former smoker how long ago did patient quit smokin years ago alcohol intake: current alcohol intake frequency: holidays/special occasions only substance use type: does not use caffeine: Yes Type: coffee Number of servings: 4 ROS ROS Narrative negative except above Physical Exam Narrative Alert awake oriented x 3 no obvious distress no pallor no icterus no JVD s1s2 no murmurs lungs clear abdomen soft no organomegaly no edema no cyanosis Lab / Micro Data 01/07/24 05:14 01/07/24 05:14 Labs: Laboratory Results - last 24 hr 01/07/24 05:14: WBC 14.5 H, RBC 3.73 L, Hgb 10.2 L, Hct 32.0 L, MCV 85.8, MCH 27.3, MCHC 31.9 L, RDW Std Deviation 49.7 H, RDW Coeff of Elayne 15.8 H, Plt Count 429, MPV 9.7, Immature Gran % (Auto) 1.200 H, Neut % (Auto) 78.8 H, Lymph % (Auto) 10.3 L, [place] % (Auto) 8.4, Eos % (Auto) 0.9, Baso % (Auto) 0.4, Absolute Neuts (auto) 11.5 H, Absolute Lymphs (auto) 1.49, Nucleated RBC % 0, Sodium 131 L, Potassium 4.6, Chloride 101, Carbon Dioxide 20.0 L, Anion Gap 10, BUN 104 H*, Creatinine 2.10 H, Estim Creat Clear Calc 33.53, Est GFR (MDRD) Af Amer 39 L, E st GFR (MDRD) Non-Af 32 L, BUN/Creatinine Ratio 49.5 H, Glucose 99, Calcium 8.7 01/07/24 05:57: POC Glucose 99 Micro: Microbiology 01/07/24 16:45 Stool Stool Occult Blood (DOUG) - Final 01/06/24 16:30 Urine, Clean Catch Urine Culture - Preliminary GNR lactose pharmacy 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 Electronically Signed: Darnell Cutler MD at 8:56 EST , Humerus X-Ray 01/06/24 13:35 IMPRESSION: Acute nondisplaced humeral neck fracture. Electronically Signed: Darnell Cutler MD at 8:54 EST , Renal Ultrasound 01/07/24 07:32 IMPRESSION: Normal ultrasound of the kidneys and urinary bladder. Electronically Signed: Jake Caceres MD at 14:37 EST ,
[2024-01-07] MEDS: Mirtazapine 15 MG Tablet PO (20:26)
[2024-01-07] MEDS: SACUBITRIL/VALSARTAN 24/26 MG TABLET 1 EACH PO (20:26)
[2024-01-07] MEDS: Atorvastatin Calcium 20 MG Tablet PO (20:27)
[2024-01-07 21:30] VITALS: BP 111/48; PULSE 67
[2024-01-08 06:16] LABS: Bedside Glucose 105 mg/dL (74-106)
[2024-01-08] MEDS: Acetaminophen 500 MG Tablet 1000 MG PO ×3 (06:26→22:45)
[2024-01-08] MEDS: Ciprofloxacin 250 MG Tablet PO ×2 (06:26→22:45)
[2024-01-08 06:38] LABS: Absolute Lymphocyte Count 1.28 X10^3/uL (0.83-4.51); Absolute Neutrophil Count 8.5 X10^3/uL (2.0-7.7); Basophil# 0.04 X10^3/uL; Basophil% 0.4 % (0-1); Eosinophil# 0.23 X10^3/uL; Eosinophils% 2.1 % (0-5); Hematocrit 30.2 % (40-54); Hemoglobin 9.5 g/dL (13.0-16.5); Lymphocyte # 1.28 X10^3/ul (0.83-4.51); Lymphocyte % 11.5 % (19-41); Mean Corp Hgb Conc 31.5 g/dL (32-36); Mean Corpuscular Volume 85.8 fL (80-94); Mean Platelet Vol. 9.4 fl (6.2-12.0); Monocyte# 0.96 X10^3/uL; Monocyte% 8.6 % (0-10); NRBC Flagged by Analyzer 0 % (0-5); Neutrophil % 76.1 % (47-70); Platelet Count 401 K/mm3 (150-450); RBC Distribution Width CV 15.9 % (11.6-14.6); RBC Distribution Width SD 50.2 fl (35.1-43.9); Red Blood Count 3.52 M/mm3 (4.6-6.2); White Blood Count 11.2 K/mm3 (4.4-11.0)
[2024-01-08 07:12] LABS: Anion Gap 9 (5-15); BUN 109 mg/dL (7-18); BUN/Creat Ratio 58.3 RATIO (10-20); Calcium,Total 8.5 mg/dL (8.5-10.1); Chloride 106 mmol/L (98-107); Creatinine, Serum 1.87 mg/dL (0.70-1.30); EST Glomerular Filtration Rate 37 mL/min (>60); Est Glom Filt Rate - Afr Amer 45 mL/min (>60); Estimated Creatinine Clearance 37.66 ml/min; Glucose 104 mg/dL (74-106); Sodium Level 134 mmol/L (136-145)
[2024-01-08] MEDS: 0.9% Normal Saline (1000mL) 1,000 ML 75 ML IV ×2 (07:58→22:43)
[2024-01-08] MEDS: Iron Polysaccharide Complex 150 MG CAPSULE PO (08:00)
[2024-01-08] MEDS: Senna/Docusate Sodium 1 Tablet 2 TABLET PO (08:00)
[2024-01-08] MEDS: Ascorbic Acid 500 MG Tablet PO (08:00)
[2024-01-08] MEDS: Glimepiride 1 MG Tablet PO (08:01)
[2024-01-08] MEDS: APIXABAN 5 MG TABLET PO ×2 (08:01→22:45)
[2024-01-08] MEDS: Cholecalciferol (Vit D3) 125 MCG CAPSULE (5,000 UNITS) PO (08:01)
[2024-01-08] MEDS: Pantoprazole Sodium 20 MG Tablet PO (08:01)
[2024-01-08] MEDS: Multivitamin (Healthy Eyes) Capsule 1 CAP PO (08:01)
[2024-01-08 08:02] VITALS: BP 121/50; PULSE 51
[2024-01-08] MEDS: Metoprolol(XL)Succ 25 MG Tablet PO (08:02)
[2024-01-08] MEDS: amLODIPine 10 MG Tablet PO (08:02)
[2024-01-08] MEDS: SACUBITRIL/VALSARTAN 24/26 MG TABLET 1 EACH PO ×2 (08:02→22:45)
[2024-01-08] MEDS: Menthol/Lanolin/Calamine/Znox 113 GM Tube 1 APPLIC TOPICAL ×2 (08:03→22:47)
--- NOTE | 2024-01-08 08:13 | MDS.RN ---
MDS pain interview completed.
[2024-01-08 08:30] VITALS: BP 121/50; PULSE 51; RESP 18; TEMP 36.6; O2SAT 96
[2024-01-08] MEDS: traMADol 50 MG Tablet PO ×2 (09:13→17:11)
[2024-01-08] MEDS: Tamsulosin HCl 0.4 MG Capsule PO (17:10)
[2024-01-08 21:30] VITALS: BP 111/49; PULSE 79
[2024-01-08] MEDS: Mirtazapine 15 MG Tablet PO (22:44)
[2024-01-08] MEDS: Atorvastatin Calcium 20 MG Tablet PO (22:45)
[2024-01-09] MEDS: Acetaminophen 500 MG Tablet 1000 MG PO ×3 (05:32→21:42)
[2024-01-09] MEDS: Ciprofloxacin 250 MG Tablet PO ×2 (05:34→21:40)
[2024-01-09 06:44] LABS: Anion Gap 5 (5-15); BUN 95 mg/dL (7-18); BUN/Creat Ratio 73.1 RATIO (10-20); Calcium,Total 8.3 mg/dL (8.5-10.1); Chloride 112 mmol/L (98-107); EST Glomerular Filtration Rate 56 mL/min (>60); Est Glom Filt Rate - Afr Amer 68 mL/min (>60); Estimated Creatinine Clearance 54.17 ml/min; Glucose 76 mg/dL (74-106); Potassium 4.5 mmol/L (3.5-5.1); Sodium Level 137 mmol/L (136-145)
[2024-01-09 06:46] LABS: Bedside Glucose 74 mg/dL (74-106)
--- NOTE | 2024-01-09 06:55 | NURSING ---
juice given for blood sugar of 74 this am.
[2024-01-09] MEDS: Menthol/Lanolin/Calamine/Znox 113 GM Tube 1 APPLIC TOPICAL ×2 (09:05→22:13)
[2024-01-09] MEDS: APIXABAN 5 MG TABLET PO ×2 (09:05→21:40)
[2024-01-09] MEDS: Cholecalciferol (Vit D3) 125 MCG CAPSULE (5,000 UNITS) PO (09:05)
[2024-01-09] MEDS: Ascorbic Acid 500 MG Tablet PO (09:05)
[2024-01-09] MEDS: Pantoprazole Sodium 20 MG Tablet PO (09:05)
[2024-01-09] MEDS: SACUBITRIL/VALSARTAN 24/26 MG TABLET 1 EACH PO ×2 (09:05→21:41)
[2024-01-09] MEDS: Senna/Docusate Sodium 1 Tablet 2 TABLET PO ×2 (09:05→21:41)
[2024-01-09] MEDS: Iron Polysaccharide Complex 150 MG CAPSULE PO (09:05)
[2024-01-09] MEDS: amLODIPine 10 MG Tablet PO (09:05)
[2024-01-09] MEDS: Multivitamin (Healthy Eyes) Capsule 1 CAP PO (09:05)
[2024-01-09 09:26] VITALS: BP 131/50; PULSE 51
[2024-01-09 10:42] VITALS: PULSE 51
[2024-01-09] MEDS: oxyCODONE 5 MG Tablet 10 MG PO ×2 (11:00→21:44)
--- NOTE | 2024-01-09 11:02 | CASEMGMT ---
BIMS () and PHQ9 (0) interviews completed on this date for MDS assessment. SAADIA Friend
[2024-01-09 15:27] VITALS: BP 136/51; PULSE 50; RESP 14; TEMP 36.1; O2SAT 100
[2024-01-09] MEDS: Tamsulosin HCl 0.4 MG Capsule PO (17:08)
[2024-01-09] MEDS: Atorvastatin Calcium 20 MG Tablet PO (21:40)
[2024-01-09] MEDS: Mirtazapine 15 MG Tablet PO (21:41)
[2024-01-09 22:36] VITALS: PULSE 52; RESP 16; O2SAT 98
--- NOTE | 2024-01-09 22:48 | NURSING ---
Patient confused tonight, not knowing where things were. Was able to tell this nurse time and place. Patient had been sleeping, was reoriented to room. Will continue to monitor.
[2024-01-10] MEDS: traMADol 50 MG Tablet PO (06:17)
[2024-01-10] MEDS: Acetaminophen 500 MG Tablet 1000 MG PO ×3 (06:18→22:15)
[2024-01-10] MEDS: Ciprofloxacin 250 MG Tablet PO ×2 (06:18→22:15)
[2024-01-10] MEDS: 0.9% Saline Lock 10 ML Syringe IV (06:20)
[2024-01-10 06:56] LABS: Bedside Glucose 102 mg/dL (74-106)
[2024-01-10] MEDS: Glimepiride 1 MG Tablet PO (08:32)
[2024-01-10] MEDS: Menthol/Lanolin/Calamine/Znox 113 GM Tube 1 APPLIC TOPICAL ×2 (08:32→22:13)
[2024-01-10] MEDS: Pantoprazole Sodium 20 MG Tablet PO (08:33)
[2024-01-10] MEDS: SACUBITRIL/VALSARTAN 24/26 MG TABLET 1 EACH PO ×2 (08:33→22:15)
[2024-01-10] MEDS: APIXABAN 5 MG TABLET PO ×2 (08:33→22:15)
[2024-01-10] MEDS: Multivitamin (Healthy Eyes) Capsule 1 CAP PO (08:33)
[2024-01-10] MEDS: Iron Polysaccharide Complex 150 MG CAPSULE PO (08:33)
[2024-01-10] MEDS: amLODIPine 10 MG Tablet PO (08:33)
[2024-01-10] MEDS: Senna/Docusate Sodium 1 Tablet 2 TABLET PO ×2 (08:33→22:15)
[2024-01-10] MEDS: Ascorbic Acid 500 MG Tablet PO (08:34)
[2024-01-10] MEDS: Cholecalciferol (Vit D3) 125 MCG CAPSULE (5,000 UNITS) PO (08:34)
[2024-01-10 11:04] VITALS: BP 121/45; PULSE 50; RESP 18; TEMP 36.4; O2SAT 97
[2024-01-10] MEDS: oxyCODONE 5 MG Tablet 10 MG PO (14:17)
[2024-01-10] MEDS: Tamsulosin HCl 0.4 MG Capsule PO (17:11)
[2024-01-10] MEDS: Mirtazapine 15 MG Tablet PO (22:15)
[2024-01-10] MEDS: Atorvastatin Calcium 20 MG Tablet PO (22:15)
[2024-01-11] MEDS: oxyCODONE 5 MG Tablet 10 MG PO ×2 (01:15→09:36)
[2024-01-11] MEDS: 0.9% Saline Lock 10 ML Syringe IV ×2 (01:16→17:15)
[2024-01-11] MEDS: Acetaminophen 500 MG Tablet 1000 MG PO ×3 (06:19→21:58)
[2024-01-11] MEDS: Ciprofloxacin 250 MG Tablet PO ×2 (06:19→21:57)
[2024-01-11] MEDS: traMADol 50 MG Tablet PO (06:24)
[2024-01-11 06:26] LABS: Bedside Glucose 129 mg/dL (74-106)
[2024-01-11] MEDS: Menthol/Lanolin/Calamine/Znox 113 GM Tube 1 APPLIC TOPICAL ×2 (09:30→21:59)
[2024-01-11] MEDS: APIXABAN 5 MG TABLET PO ×2 (09:30→21:57)
[2024-01-11] MEDS: Multivitamin (Healthy Eyes) Capsule 1 CAP PO (09:31)
[2024-01-11] MEDS: Iron Polysaccharide Complex 150 MG CAPSULE PO (09:31)
[2024-01-11] MEDS: SACUBITRIL/VALSARTAN 24/26 MG TABLET 1 EACH PO ×2 (09:31→21:58)
[2024-01-11] MEDS: Glimepiride 1 MG Tablet PO (09:31)
[2024-01-11] MEDS: amLODIPine 10 MG Tablet PO (09:32)
[2024-01-11] MEDS: Pantoprazole Sodium 20 MG Tablet PO (09:32)
[2024-01-11] MEDS: Ascorbic Acid 500 MG Tablet PO (09:33)
[2024-01-11] MEDS: Senna/Docusate Sodium 1 Tablet 2 TABLET PO ×2 (09:33→21:59)
[2024-01-11] MEDS: Cholecalciferol (Vit D3) 125 MCG CAPSULE (5,000 UNITS) PO (09:34)
[2024-01-11 09:41] VITALS: BP 127/47; PULSE 50; O2SAT 98
[2024-01-11 13:20] VITALS: RESP 14; TEMP 36.1
[2024-01-11] MEDS: Tamsulosin HCl 0.4 MG Capsule PO (17:14)
[2024-01-11] MEDS: Mirtazapine 15 MG Tablet PO (21:58)
[2024-01-11] MEDS: Atorvastatin Calcium 20 MG Tablet PO (21:58)
[2024-01-12] MEDS: Acetaminophen 500 MG Tablet 1000 MG PO ×3 (05:16→20:39)
[2024-01-12] MEDS: Ciprofloxacin 250 MG Tablet PO ×2 (05:16→20:40)
[2024-01-12 06:02] LABS: Absolute Lymphocyte Count 1.48 X10^3/uL (0.83-4.51); Absolute Neutrophil Count 5.8 X10^3/uL (2.0-7.7); Basophil# 0.06 X10^3/uL; Basophil% 0.7 % (0-1); Eosinophil# 0.45 X10^3/uL; Eosinophils% 5.1 % (0-5); Hematocrit 30.4 % (40-54); Hemoglobin 9.4 g/dL (13.0-16.5); Lymphocyte # 1.48 X10^3/ul (0.83-4.51); Lymphocyte % 16.7 % (19-41); Mean Corp Hgb Conc 30.9 g/dL (32-36); Mean Corpuscular Hgb 27.4 pg (27.0-32.0); Mean Corpuscular Volume 88.6 fL (80-94); Mean Platelet Vol. 9.3 fl (6.2-12.0); Monocyte# 0.74 X10^3/uL; Monocyte% 8.4 % (0-10); NRBC Flagged by Analyzer 0 % (0-5); Neutrophil # 5.78 X10^3/uL (2.7-7.7); Neutrophil % 65.1 % (47-70); Platelet Count 458 K/mm3 (150-450); RBC Distribution Width CV 16.4 % (11.6-14.6); RBC Distribution Width SD 53.5 fl (35.1-43.9); Red Blood Count 3.43 M/mm3 (4.6-6.2); White Blood Count 8.9 K/mm3 (4.4-11.0)
[2024-01-12 06:25] LABS: Anion Gap 4 (5-15); BUN 56 mg/dL (7-18); BUN/Creat Ratio 54.4 RATIO (10-20); Calcium,Total 8.6 mg/dL (8.5-10.1); Chloride 114 mmol/L (98-107); Creatinine, Serum 1.03 mg/dL (0.70-1.30); EST Glomerular Filtration Rate 74 mL/min (>60); Est Glom Filt Rate - Afr Amer 89 mL/min (>60); Estimated Creatinine Clearance 68.37 ml/min; Glucose 92 mg/dL (74-106); Potassium 5.4 mmol/L (3.5-5.1); Sodium Level 140 mmol/L (136-145)
[2024-01-12 06:37] LABS: Bedside Glucose 86 mg/dL (74-106)
[2024-01-12] MEDS: Multivitamin (Healthy Eyes) Capsule 1 CAP PO (07:53)
[2024-01-12] MEDS: Ascorbic Acid 500 MG Tablet PO (07:53)
[2024-01-12] MEDS: Glimepiride 1 MG Tablet PO (07:53)
[2024-01-12] MEDS: Cholecalciferol (Vit D3) 125 MCG CAPSULE (5,000 UNITS) PO (07:53)
[2024-01-12] MEDS: APIXABAN 5 MG TABLET PO ×2 (07:53→20:40)
[2024-01-12] MEDS: Pantoprazole Sodium 20 MG Tablet PO (07:53)
[2024-01-12] MEDS: Iron Polysaccharide Complex 150 MG CAPSULE PO (07:53)
[2024-01-12] MEDS: Menthol/Lanolin/Calamine/Znox 113 GM Tube 1 APPLIC TOPICAL ×2 (07:55→20:42)
[2024-01-12] MEDS: amLODIPine 10 MG Tablet PO (07:55)
[2024-01-12] MEDS: SACUBITRIL/VALSARTAN 24/26 MG TABLET 1 EACH PO ×2 (07:55→20:40)
[2024-01-12] MEDS: Senna/Docusate Sodium 1 Tablet 2 TABLET PO ×2 (07:56→20:38)
[2024-01-12] MEDS: Sodium Polystyrene Sulfonate 15 GM/60 ML UDC 30 GM PO (08:36)
[2024-01-12] MEDS: Tuberculin,Purif.prot.deriv. 50 TU/ML Vial 0.1 ML ID (08:36)
--- NOTE | 2024-01-12 08:48 | NURSING ---
Replenishment Merchandising Associate Note; MDS for 01/11/2024 Complete
[2024-01-12 09:36] VITALS: BP 147/50; PULSE 52; RESP 16; TEMP 36.2; O2SAT 97
--- NOTE | 2024-01-12 10:00 | NURSING ---
Offered covid vaccine, VIS provided. Refuses at this time. He would like to get at his facility after DC.
--- NOTE | 2024-01-12 11:45 | CASEMGMT ---
Addendum entered by Roxanna Wiley 01/13/24 13:06: SW spoke with pt at bedside. Informed him of [facility] and [facility] accepting. Pt would like time to make a decision and await outcome of insurance update. SW agreed. WIll continue to follow. Addendum entered by Roxanna Wiley 01/13/24 09:09: Son returned call and does not have a preference. SW to speak with pt on preference, if SNF is needed. Son did inquire about follow up with Neida Gaspar on the status of pt's lift chair delivery. CHANO noted there was a call made to her on 01/06, but no return call. SW to follow up. Son appreciative. CHANO phoned Neida Gaspar, who was unable to tell this worker about the status of the lift chair. Neida explained the pt was approved for one, but in October, the lift chairs were on backorder. Neida provided this worker with the company and number who is supplying the lift chairs to f/u on the status. [employer] [phone] SW phoned the [employer] and was directed to Kadie. SW left VM requesting return call. Will continue to follow. Addendum entered by Roxanna Wiley 01/13/24 08:53: SW left VM with son to update on both SNFs accepting and estimated pricing. Original Note: Social Work SW phoned son to inquire about alt DC plan if insurance issues LCD from NRD 01/13. Son aware [facility] cannot accept with marino or heavy two assist. SW offered to refer to other SNFs. Son aware for pt to received part B therapies, pt will need to be at an [facility] SNF. CHANO verbally provided those choices: [facility], [facility] and [facility]. D/t location son prefers [facility] or [facility]. SW to make referrals. CHANO will continue to follow. Sent referrals to W and SW via [employer]. GLORIA White
[2024-01-12] MEDS: Tamsulosin HCl 0.4 MG Capsule PO (16:52)
[2024-01-12] MEDS: Mirtazapine 15 MG Tablet PO (20:41)
[2024-01-12] MEDS: Atorvastatin Calcium 20 MG Tablet PO (20:41)
[2024-01-12] MEDS: oxyCODONE 5 MG Tablet 10 MG PO (20:41)
[2024-01-12] MEDS: 0.9% Saline Lock 10 ML Syringe IV (20:45)
[2024-01-12 20:49] VITALS: BP 142/47; PULSE 50
[2024-01-13] MEDS: oxyCODONE 5 MG Tablet 10 MG PO ×4 (01:40→20:40)
[2024-01-13 06:21] LABS: Anion Gap 3 (5-15); BUN 41 mg/dL (7-18); Calcium,Total 8.6 mg/dL (8.5-10.1); Chloride 115 mmol/L (98-107); Creatinine, Serum 0.93 mg/dL (0.70-1.30); EST Glomerular Filtration Rate 83 mL/min (>60); Est Glom Filt Rate - Afr Amer 100 mL/min (>60); Estimated Creatinine Clearance 75.72 ml/min; Glucose 88 mg/dL (74-106); Potassium 4.9 mmol/L (3.5-5.1); Sodium Level 142 mmol/L (136-145)
[2024-01-13] MEDS: traMADol 50 MG Tablet PO ×2 (06:35→17:36)
[2024-01-13] MEDS: Ciprofloxacin 250 MG Tablet PO ×2 (06:36→20:41)
[2024-01-13] MEDS: Acetaminophen 500 MG Tablet 1000 MG PO ×3 (06:36→20:39)
[2024-01-13 06:49] LABS: Bedside Glucose 85 mg/dL (74-106)
[2024-01-13] MEDS: APIXABAN 5 MG TABLET PO ×2 (09:15→20:41)
[2024-01-13] MEDS: Menthol/Lanolin/Calamine/Znox 113 GM Tube 1 APPLIC TOPICAL ×2 (09:15→20:43)
[2024-01-13] MEDS: Glimepiride 1 MG Tablet PO (09:15)
[2024-01-13] MEDS: SACUBITRIL/VALSARTAN 24/26 MG TABLET 1 EACH PO ×2 (09:15→20:38)
[2024-01-13] MEDS: Iron Polysaccharide Complex 150 MG CAPSULE PO (09:16)
[2024-01-13] MEDS: amLODIPine 10 MG Tablet PO (09:16)
[2024-01-13] MEDS: Senna/Docusate Sodium 1 Tablet 2 TABLET PO ×2 (09:16→20:42)
[2024-01-13] MEDS: Ascorbic Acid 500 MG Tablet PO (09:16)
[2024-01-13] MEDS: Cholecalciferol (Vit D3) 125 MCG CAPSULE (5,000 UNITS) PO (09:16)
[2024-01-13] MEDS: Multivitamin (Healthy Eyes) Capsule 1 CAP PO (09:16)
[2024-01-13] MEDS: Pantoprazole Sodium 20 MG Tablet PO (09:16)
[2024-01-13 10:13] VITALS: BMI 24.5
[2024-01-13 14:28] VITALS: BP 123/46; PULSE 50; RESP 16; TEMP 36.6; O2SAT 99
[2024-01-13] MEDS: Tamsulosin HCl 0.4 MG Capsule PO (17:36)
[2024-01-13] MEDS: Atorvastatin Calcium 20 MG Tablet PO (20:39)
[2024-01-13] MEDS: Mirtazapine 15 MG Tablet PO (20:41)
[2024-01-14] MEDS: traMADol 50 MG Tablet PO ×4 (01:03→17:24)
[2024-01-14] MEDS: Ciprofloxacin 250 MG Tablet PO (06:08)
[2024-01-14] MEDS: Acetaminophen 500 MG Tablet 1000 MG PO ×3 (06:08→22:30)
[2024-01-14 06:26] LABS: Bedside Glucose 102 mg/dL (74-106)
[2024-01-14] MEDS: Alendronate Sodium 70 MG Tablet PO (06:41)
[2024-01-14] MEDS: Glimepiride 1 MG Tablet PO (09:08)
[2024-01-14] MEDS: SACUBITRIL/VALSARTAN 24/26 MG TABLET 1 EACH PO ×2 (09:08→22:30)
[2024-01-14] MEDS: APIXABAN 5 MG TABLET PO ×2 (09:08→22:30)
[2024-01-14] MEDS: Ascorbic Acid 500 MG Tablet PO (09:09)
[2024-01-14] MEDS: amLODIPine 10 MG Tablet PO (09:09)
[2024-01-14] MEDS: Iron Polysaccharide Complex 150 MG CAPSULE PO (09:09)
[2024-01-14] MEDS: Senna/Docusate Sodium 1 Tablet 2 TABLET PO ×2 (09:09→22:30)
[2024-01-14] MEDS: Pantoprazole Sodium 20 MG Tablet PO (09:09)
[2024-01-14] MEDS: Cholecalciferol (Vit D3) 125 MCG CAPSULE (5,000 UNITS) PO (09:09)
[2024-01-14] MEDS: Multivitamin (Healthy Eyes) Capsule 1 CAP PO (09:09)
[2024-01-14] MEDS: Menthol/Lanolin/Calamine/Znox 113 GM Tube 1 APPLIC TOPICAL ×2 (09:11→22:30)
--- NOTE | 2024-01-14 10:44 | CASEMGMT ---
Addendum entered by Roxanna Wiley 01/14/24 16:35: Received call from [email or web address], stating she filed the appeal and provided CHANO phoned Loc to request medical records. Received fax and forwarded to HIM to process. Original Note: Social Work Insurance issued LCD 01/15, DC 01/16. CHANO spoke with pt to update on DC, explained appeal rights. Inquired about SNF preference. Pt prefers [facility] and would like to appeal. Pt deferred to son. SW phoned son to update on DC date and pt request to appeal. Son is agreeable to appeal, but works throughout the day, and will appeal once available. Son is agreeable to [facility] as well. SW updated SW and W on FOC. Will schedule cot transport. PASRR completed. Plan: DC 01/16 to [facility], intermediate, private pay, part B therapies Roxanna Wiley, GLORIA ZEE
[2024-01-14] MEDS: 0.9% Saline Lock 10 ML Syringe IV (11:50)
[2024-01-14 15:41] VITALS: BP 140/46; PULSE 50; RESP 14; TEMP 36.1; O2SAT 100
[2024-01-14] MEDS: Tamsulosin HCl 0.4 MG Capsule PO (17:24)
--- NOTE | 2024-01-14 19:29 | DS.PCM_ITS ---
Providers Date of Admission: 01/04/24 Primary Care Physician: LIOR Laura Consultations 01/05/24 17:34 Consult: Orthopedics Routine Consulting Provider: Driss Slaughter Reason for Consult: Right humerus fracture, right nondisplaced acetabular fracture. EMERGENT Consult: No MD Notified: Yes Date Notified: 01/06/24 Time Notified: 10:16 Method of Notification: Answering Service 01/07/24 07:32 Consult: Nephrology Routine Consulting Provider: Chantell Rob Reason for Consult: LATANYA EMERGENT Consult: No MD Notified: Yes Date Notified: 01/07/24 Time Notified: 07:33 Method of Notification: Answering Service Reason For Visit: RIGHT ACETABULUM FRACTURE Diagnosis Discharge Diagnosis (1) LATANYA (acute kidney injury): Status: Acute Code(s): N17.9 - Acute kidney failure, unspecified (2) Right acetabular fracture: Status: Acute Code(s): S32.401A - Unspecified fracture of right acetabulum, initial encounter for closed fracture Plan 78 year old male with below past medical history hospitalized for right humerus fracture, right nondisplaced acetabular fracture, both treated nonsurgically, admitted to TCU with debility, here for rehabilitation, strengthening, prior to discharge to [facility]. * Debility - PT/OT. * Pain - Tylenol 1000mg q6 prn pain (1-3), Tramadol 50mg q6 prn pain (4-5), Oxycodone 5mg q4 prn pain (6-10). * Bowel - senna/colace 2 tablets bid, Magnesium citrate 300mL po daily prn. * Adult immunization - Administer pneumonia vaccine, covid vaccine, flu vaccine as appropriate. * DVT prophylaxis - on Eliquis. * Osteoporosis - Alendronate 70mg qweek. * GERD - Pantoprazole 20mg daily, Mylanta II 15ml q6 prn. * Hypertension - Metoprolol succinate 25mg daily, Amlodipine 10mg daily, Hydralazine 50mg q8 prn. * Atrial fibrillation - Metoprolol succinate 25mg daily, Eliquis 5mg bid. * Iron deficiency anemia - Ferrex 150mg daily, Vitamin C 500mg daily. * Hyperlipidemia - Atorvastatin 20mg qhs. * Vitamin D deficiency - D3 125mcg daily. * HFrEF - Metoprolol succinate 25mg daily, Entresto 24/16mg bid, Aldactone 25mg daily, Furosemide 40mg bid. * Diabetes mellitus II - Glimepiride 1mg daily. * Depression/insomnia/appetite loss - Mirtazapine 15mg qhs, stable chronic long-term use, GDR not recommended. * Macular degeneration - Healthy Eyes 1 capsule daily. Medications at Discharge Home Medications atorvastatin 20 mg tablet 20 mg PO QHS CHOLESTEROL 04/05/19 cholecalciferol (vitamin D3) 125 mcg (5,000 unit) capsule 125 mcg PO DAILY SUPPLEMENT 04/02/23 polysaccharide iron complex 150 mg iron capsule (Ferrex) 150 mg PO DAILY Supplement 30 days #30 caps 04/16/23 apixaban 5 mg tablet (Eliquis) 5 mg PO BID thinner 06/30/23 furosemide 40 mg tablet 40 mg PO BID water pill 06/30/23 alendronate 70 mg tablet 70 mg PO QWEEK supplement 01/04/24 amlodipine 10 mg tablet 10 mg PO DAILY blood pressure 01/04/24 ascorbic acid (vitamin C) 500 mg tablet 500 mg PO DAILY supplement 01/04/24 glimepiride 1 mg tablet 1 mg PO DAILY dm 01/04/24 hydralazine 50 mg tablet 50 mg PO Q8H PRN blood pressure 01/04/24 mirtazapine 15 mg tablet 15 mg PO QHS Depression 01/04/24 sacubitril 24 mg-valsartan 26 mg tablet (Entresto) 1 tab PO BID CHF 01/04/24 acetaminophen 500 mg tablet 1,000 mg (2 x 500 mg) PO Q8 #0 tabs 01/14/24 menthol 0.44 %-zinc oxide 20.6 % topical ointment (Calmoseptine) 1 applic topical BID #0 grams 01/14/24 oxycodone 5 mg tablet 10 mg (2 x 5 mg) PO Q4H PRN PRN Pain Score 6-10 Or Pre Pt/Ot 3 days #36 tabs 01/14/24 pantoprazole 20 mg tablet,delayed release 20 mg PO DAILY #0 tabs 01/14/24 sennosides 8.6 mg-docusate sodium 50 mg tablet (Stimulant Laxative Plus) 2 tab PO BID #0 tabs 01/14/24 tamsulosin 0.4 mg capsule 0.4 mg PO DAILY@1730 #0 caps 01/14/24 tramadol 50 mg tablet 50 mg PO Q6 3 days #12 tabs 01/14/24 Hospital Course Operations None Procedures None Summary of Care Provided Minutes Spent on Discharge: 35 Hospital Course: 78 year old male with below past medical history hospitalized for right humerus fracture, right nondisplaced acetabular fracture, both treated nonsurgically, admitted to TCU with debility, here for rehabilitation, strengthening, prior to discharge to [facility]. 01/06/2024 K. Pneumoniae UTI treated with Cipro 250mg po bid x 7 days. Discharge 01/17/2024 to [facility], [facility], private pay, part B therapies. Physical Exam Const alert General Appearance: cooperative HEENT normocephalic Eyes PERRL and EOMs intact bilaterally Neck supple, no JVD and no carotid bruits Resp normal respiratory effort, normal air movement and clear to auscultation bilaterally Cardio regular rate and regular rhythm GI normal to inspection, nondistended, normoactive bowel sounds, non-tender and non-distended Extremity normal capillary refill Extremity Narrative: Right upper extremity sling. General Extremity: Negative for edema Skin no rashes or lesions noted General Skin Exam: no breakdown Psych affect normal Appearance: appropriate Weight / BMI Weight Weight: 89.539 kg Body Mass Index (BMI) 24.5 ABG / Lab / Microbiology Data 01/12/24 05:31 01/13/24 05:21 Laboratory: Laboratory Results - last 24 hr 01/14/24 06:08: POC Glucose 102 Microbiology: Microbiology 01/06/24 16:30 Urine, Clean Catch Urine Culture - Final Klebsiella pneumoniae sp pneum 01/07/24 16:45 Stool Stool Occult Blood (DOUG) - Final D/C Instructions Discharge Diet: No restrictions Discharge Activity: Return to Normal Activity, May Shower and Use Walker Weight Bearing Status: Weight bearing as tolerated Call your doctor if you observe: Fever of 101 or Higher, Inability to urinate, Inability to have a bowel movement, Shortness of breath, Dizziness, Fainting spells, Swelling in the ankles, Chest pain and Uncontrolled pain Additional Instructions: Discharge 01/17/2024 to [facility], [facility], private pay, part B therapies. Meaningful Use Info Meaningful Use Meaningful Use Diagnoses (Choose all that apply): None applicable Ischemic Stroke Statin Dosing Therapy Reference: STATIN DOSE THERAPY REFERENCE: * Patients > 75 years receive moderate or high dose statin therapy. * Patients 75 years or YOUNGER should receive HIGH intensity statin dose unless contraindicated. You will be required to document reason for non-treatment if statin daily dose does not meet guidelines. HIGH DOSE STATIN THERAPY DAILY Atorvastatin > than or = to 40 mg Rosuvastatin > than or = to 20 mg Amlodipine + Atorvastatin > than or = to 2.5/40 mg Ezetimibe + Simvastatin 10/80 mg Simvastatin 80mg Discharge Plan Admission Admit Date/Time: 01/04/24 11:30 Primary Reason for Your Visit: Debility. Attending Provider: Jesse Mixon Chi Primary Care Provider: Neida Brewer Consulting Providers: Driss Slaughter; Chantell Rob Instructions Additional Instructions / Restrictions: Discharge 01/17/2024 to [facility], [facility], private pay, part B therapies. Discharge Orders/Prescriptions Prescriptions: New acetaminophen 500 mg Tablet 1,000 mg PO Q8 Qty: 0 0RF menthol-zinc oxide [Calmoseptine] 0.44-20.6 % Ointment 1 applic topical BID Qty: 0 0RF Protocol: *Topical Application Instructions APPLICATION INSTRUCTIONS: coccyx and bilateral buttocks sennosides-docusate sodium [Stimulant Laxative Plus] 8.6-50 mg Tablet 2 tab PO BID Qty: 0 0RF pantoprazole 20 mg Tablet,Delayed Release (Dr/Ec) 20 mg PO DAILY Qty: 0 0RF oxycodone 5 mg Tablet 10 mg PO Q4H PRN PRN (Reason: Pain Score 6-10 Or Pre Pt/Ot) 3 Days Qty: 36 0RF tramadol 50 mg Tablet 50 mg PO Q6 3 Days Qty: 12 0RF tamsulosin 0.4 mg Capsule 0.4 mg PO DAILY@1730 Qty: 0 0RF Continued atorvastatin 20 mg tablet 20 mg PO QHS Eliquis 5 mg tablet 5 mg PO BID furosemide 40 mg tablet 40 mg PO BID polysaccharide iron complex [Ferrex 150] 150 mg iron Capsule 150 mg PO DAILY 30 Days Qty: 30 0RF cholecalciferol (vitamin D3) 125 mcg (5,000 unit) capsule 125 mcg PO DAILY alendronate 70 mg tablet 70 mg PO QWEEK glimepiride 1 mg tablet 1 mg PO DAILY ascorbic acid (vitamin C) 500 mg Tablet 500 mg PO DAILY amlodipine 10 mg Tablet 10 mg PO DAILY hydralazine 50 mg tablet 50 mg PO Q8H PRN (Reason: blood pressure) Rx Instructions: Take one tablet by mouth every 8 hours for SBP >150 mirtazapine 15 mg tablet 15 mg PO QHS Entresto 24-26 mg tablet 1 tab PO BID Discontinued omeprazole 20 mg capsule,delayed release(DR/EC) 20 mg PO DAILY.TCU oxycodone 5 mg Tablet 5 mg PO Q4H PRN PRN (Reason: Pain Score 4-10) 7 Days Qty: 42 0RF hydralazine 25 mg Tablet 50 mg PO TID 30 Days Qty: 180 0RF sennosides-docusate sodium [Stool Softener-Stimulant Laxat] 8.6-50 mg Tablet 2 tab PO BID 30 Days Qty: 120 0RF melatonin 3 mg tablet 3 mg PO QHS aluminum-magnesium hydroxide 200-200 mg/5 mL suspension 15 ml PO Q6H PRN (Reason: stomach) diphenhydramine HCl [Banophen] 25 mg tablet 25 mg PO QHS PRN (Reason: allergy symptoms) acetaminophen 500 mg Tablet 1,000 mg PO Q8 PRN (Reason: pain) lutein-zeaxanthin 25-5 mg capsule 1 cap PO DAILY magnesium hydroxide 400 mg/5 mL suspension 2,400 mg PO DAILY PRN (Reason: constipation) metoprolol succinate 25 mg tablet extended release 24 hr 25 mg PO DAILY amlodipine 5 mg tablet 10 mg PO DAILY spironolactone 25 mg tablet 25 mg PO DAILY Referrals / Follow Up: Neida Brewer ENDOSCOPY RN-C [Primary Care Provider] - Disposition Disposition (needs filled in before D/C Order can be placed): NonSkilled NH/Intermed Care
--- NOTE | 2024-01-14 19:39 | TREXTCAR_ITS ---
Diet Diet Order/Speech Therapy: 01/05/24 15:29 Diet: Carbohydrate Controlled Food consistency:: Regular Liquid Consistency:: Regular/Thin Dietary Modifications:: Cardiac / Heart Healthy Type of Dietary Supplement:: Glucerna Shake Diet Comments: 120mL glucerna shake 3 times per day w/ meals Routine Orders/Code Status Code Status: DNC Wound(s) Back: Wound Type: Shearing Dressing Change: Mepilex Therapies Weight Bearing: Weight bearing as tolerated Extremity Affected:: Bilateral Lower Physical Therapy: Eval and Treat Occupational Therapy: Eval and Treat Problem/Diagnosis (1) LATANYA (acute kidney injury): Status: Acute Code(s): N17.9 - Acute kidney failure, unspecified (2) Right acetabular fracture: Status: Acute Code(s): S32.401A - Unspecified fracture of right acetabulum, initial encounter for closed fracture Plan 78 year old male with below past medical history hospitalized for right humerus fracture, right nondisplaced acetabular fracture, both treated nonsurgically, admitted to TCU with debility, here for rehabilitation, strengthening, prior to discharge to [facility]. * Debility - PT/OT. * Pain - Tylenol 1000mg q6 prn pain (1-3), Tramadol 50mg q6 prn pain (4-5), Oxycodone 5mg q4 prn pain (6-10). * Bowel - senna/colace 2 tablets bid, Magnesium citrate 300mL po daily prn. * Adult immunization - Administer pneumonia vaccine, covid vaccine, flu vaccine as appropriate. * DVT prophylaxis - on Eliquis. * Osteoporosis - Alendronate 70mg qweek. * GERD - Pantoprazole 20mg daily, Mylanta II 15ml q6 prn. * Hypertension - Metoprolol succinate 25mg daily, Amlodipine 10mg daily, Hydralazine 50mg q8 prn. * Atrial fibrillation - Metoprolol succinate 25mg daily, Eliquis 5mg bid. * Iron deficiency anemia - Ferrex 150mg daily, Vitamin C 500mg daily. * Hyperlipidemia - Atorvastatin 20mg qhs. * Vitamin D deficiency - D3 125mcg daily. * HFrEF - Metoprolol succinate 25mg daily, Entresto 24/16mg bid, Aldactone 25mg daily, Furosemide 40mg bid. * Diabetes mellitus II - Glimepiride 1mg daily. 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 * Macular degeneration - Healthy Eyes 1 capsule daily. Allergies/Procedures Done in Hospital Allergies No Known Allergies Allergy (Verified 06/30/23 13:48) Procedures: None Type of Care/Length of Stay Estimated LOS: More Than 30 Days Type of Care Needed: Intermediate Rehab Potential: Good Prognosis: Good Additional Orders/Day of Discharge Additional Orders: part B therapies Day of Discharge: 01/17/24 Dietary and Speech Recommendations Dietitian Recommendations/Changes: Continue consistent carbohydrate; cardiac diet and 120ml glucerna shake TID with meals. Will adjust ONS, as needed. Will monitor weight, as available. Discharge Plan Admission Admit Date/Time: 01/04/24 11:30 Primary Reason for Your Visit: Debility. Attending Provider: Jesse Mixon Chi Primary Care Provider: Neida Brewer Consulting Providers: Driss Slaughter; Chantell Rob Instructions Additional Instructions / Restrictions: Discharge 01/17/2024 to [facility], intermediate, private pay, part B therapies. Discharge Orders/Prescriptions Prescriptions: New acetaminophen 500 mg Tablet 1,000 mg PO Q8 Qty: 0 0RF menthol-zinc oxide [Calmoseptine] 0.44-20.6 % Ointment 1 applic topical BID Qty: 0 0RF Protocol: *Topical Application Instructions APPLICATION INSTRUCTIONS: coccyx and bilateral buttocks sennosides-docusate sodium [Stimulant Laxative Plus] 8.6-50 mg Tablet 2 tab PO BID Qty: 0 0RF pantoprazole 20 mg Tablet,Delayed Release (Dr/Ec) 20 mg PO DAILY Qty: 0 0RF oxycodone 5 mg Tablet 10 mg PO Q4H PRN PRN (Reason: Pain Score 6-10 Or Pre Pt/Ot) 3 Days Qty: 36 0RF tramadol 50 mg Tablet 50 mg PO Q6 3 Days Qty: 12 0RF tamsulosin 0.4 mg Capsule 0.4 mg PO DAILY@1730 Qty: 0 0RF Continued atorvastatin 20 mg tablet 20 mg PO QHS Eliquis 5 mg tablet 5 mg PO BID furosemide 40 mg tablet 40 mg PO BID polysaccharide iron complex [Ferrex 150] 150 mg iron Capsule 150 mg PO DAILY 30 Days Qty: 30 0RF cholecalciferol (vitamin D3) 125 mcg (5,000 unit) capsule 125 mcg PO DAILY alendronate 70 mg tablet 70 mg PO QWEEK glimepiride 1 mg tablet 1 mg PO DAILY ascorbic acid (vitamin C) 500 mg Tablet 500 mg PO DAILY amlodipine 10 mg Tablet 10 mg PO DAILY hydralazine 50 mg tablet 50 mg PO Q8H PRN (Reason: blood pressure) Rx Instructions: Take one tablet by mouth every 8 hours for SBP >150 mirtazapine 15 mg tablet 15 mg PO QHS Entresto 24-26 mg tablet 1 tab PO BID Discontinued omeprazole 20 mg capsule,delayed release(DR/EC) 20 mg PO DAILY.TCU oxycodone 5 mg Tablet 5 mg PO Q4H PRN PRN (Reason: Pain Score 4-10) 7 Days Qty: 42 0RF hydralazine 25 mg Tablet 50 mg PO TID 30 Days Qty: 180 0RF sennosides-docusate sodium [Stool Softener-Stimulant Laxat] 8.6-50 mg Tablet 2 tab PO BID 30 Days Qty: 120 0RF melatonin 3 mg tablet 3 mg PO QHS aluminum-magnesium hydroxide 200-200 mg/5 mL suspension 15 ml PO Q6H PRN (Reason: stomach) diphenhydramine HCl [Banophen] 25 mg tablet 25 mg PO QHS PRN (Reason: allergy symptoms) acetaminophen 500 mg Tablet 1,000 mg PO Q8 PRN (Reason: pain) lutein-zeaxanthin 25-5 mg capsule 1 cap PO DAILY magnesium hydroxide 400 mg/5 mL suspension 2,400 mg PO DAILY PRN (Reason: constipation) metoprolol succinate 25 mg tablet extended release 24 hr 25 mg PO DAILY amlodipine 5 mg tablet 10 mg PO DAILY spironolactone 25 mg tablet 25 mg PO DAILY Referrals / Follow Up: Neida Brewer NP-C [Primary Care Provider] - Disposition Disposition (needs filled in before D/C Order can be placed): NonSkilled NH/Intermed Care
[2024-01-14] MEDS: Mirtazapine 15 MG Tablet PO (22:30)
[2024-01-14] MEDS: Atorvastatin Calcium 20 MG Tablet PO (22:30)
[2024-01-15] MEDS: traMADol 50 MG Tablet PO ×5 (00:17→23:33)
[2024-01-15] MEDS: Acetaminophen 500 MG Tablet 1000 MG PO ×3 (05:41→21:54)
[2024-01-15 06:34] LABS: Bedside Glucose 85 mg/dL (74-106)
--- NOTE | 2024-01-15 06:39 | MDS.RN ---
Information for the MDS was obtained from review of the clinical record, interview of resident, staff, and direct observation of resident?s care.
--- NOTE | 2024-01-15 07:08 | NURSING ---
FERTILIZER SUPERVISOR found tramadol in pts room, pt had taken his morning medication from a med cup in front of this nurse this AM but pt had spit out tramadol after this nurse left, Tramadol wasted with RN.
[2024-01-15] MEDS: Cholecalciferol (Vit D3) 125 MCG CAPSULE (5,000 UNITS) PO (09:52)
[2024-01-15] MEDS: Menthol/Lanolin/Calamine/Znox 113 GM Tube 1 APPLIC TOPICAL ×2 (09:52→21:53)
[2024-01-15] MEDS: Ascorbic Acid 500 MG Tablet PO (09:52)
[2024-01-15] MEDS: SACUBITRIL/VALSARTAN 24/26 MG TABLET 1 EACH PO ×2 (09:52→21:54)
[2024-01-15] MEDS: Glimepiride 1 MG Tablet PO (09:52)
[2024-01-15] MEDS: Pantoprazole Sodium 20 MG Tablet PO (09:52)
[2024-01-15] MEDS: APIXABAN 5 MG TABLET PO ×2 (09:52→21:54)
[2024-01-15] MEDS: Multivitamin (Healthy Eyes) Capsule 1 CAP PO (09:52)
[2024-01-15] MEDS: amLODIPine 10 MG Tablet PO (09:52)
[2024-01-15] MEDS: Iron Polysaccharide Complex 150 MG CAPSULE PO (09:52)
[2024-01-15 16:00] VITALS: BP 148/50; PULSE 50; RESP 16; TEMP 36.5; O2SAT 98
--- NOTE | 2024-01-15 16:51 | NURSING ---
Pt. informed of current covid outbreak. Pt. son notified per pt. request.
[2024-01-15] MEDS: Tamsulosin HCl 0.4 MG Capsule PO (17:10)
[2024-01-15] MEDS: Atorvastatin Calcium 20 MG Tablet PO (21:54)
[2024-01-15] MEDS: Mirtazapine 15 MG Tablet PO (21:54)
[2024-01-16] MEDS: oxyCODONE 5 MG Tablet 10 MG PO (01:16)
[2024-01-16] MEDS: Acetaminophen 500 MG Tablet 1000 MG PO ×3 (05:49→20:51)
[2024-01-16] MEDS: traMADol 50 MG Tablet PO ×3 (05:49→18:54)
[2024-01-16 06:50] LABS: Bedside Glucose 85 mg/dL (74-106)
[2024-01-16 08:19] VITALS: BP 121/43; PULSE 50; RESP 18; TEMP 36.7; O2SAT 95
[2024-01-16] MEDS: amLODIPine 10 MG Tablet PO (08:20)
[2024-01-16] MEDS: Glimepiride 1 MG Tablet PO (08:20)
[2024-01-16] MEDS: Senna/Docusate Sodium 1 Tablet 2 TABLET PO (08:20)
[2024-01-16] MEDS: SACUBITRIL/VALSARTAN 24/26 MG TABLET 1 EACH PO ×2 (08:21→20:52)
[2024-01-16] MEDS: Pantoprazole Sodium 20 MG Tablet PO (08:21)
[2024-01-16] MEDS: Multivitamin (Healthy Eyes) Capsule 1 CAP PO (08:21)
[2024-01-16] MEDS: Ascorbic Acid 500 MG Tablet PO (08:21)
[2024-01-16] MEDS: Cholecalciferol (Vit D3) 125 MCG CAPSULE (5,000 UNITS) PO (08:21)
[2024-01-16] MEDS: Iron Polysaccharide Complex 150 MG CAPSULE PO (08:21)
[2024-01-16] MEDS: APIXABAN 5 MG TABLET PO ×2 (08:22→20:52)
[2024-01-16] MEDS: Menthol/Lanolin/Calamine/Znox 113 GM Tube 1 APPLIC TOPICAL ×2 (08:22→20:49)
--- NOTE | 2024-01-16 10:24 | CASEMGMT ---
Social Work SW completed BIMS () and PHQ-2 () for MDS assessment. No outcome yet on appeal. Roxanna Wiley, TELETYPE OR VARITYPE KEYBOARD OPERATOR TUMBLING INSTRUCTOR
--- NOTE | 2024-01-16 10:45 | NURSING ---
Pt signed admission paperwork today. Pt admitted on 01/03, A&O x4, but was physically unable to sign paperwork at that time. Family was not able to come in and sign paperwork. Placed signed paperwork in pt chart.
--- NOTE | 2024-01-16 15:15 | CASEMGMT ---
Social Work Pt lost his appeal. SW updated son, pt, IDT and WVM. Cot transport scheduled through [facility] for 1100 on 01/16. Roxanna Wiley CONTACT CENTER ANALYST AUDIT REVIEWER
[2024-01-16] MEDS: Tamsulosin HCl 0.4 MG Capsule PO (18:55)
[2024-01-16] MEDS: Mirtazapine 15 MG Tablet PO (20:52)
[2024-01-16] MEDS: Atorvastatin Calcium 20 MG Tablet PO (20:52)
[2024-01-17] MEDS: traMADol 50 MG Tablet PO ×2 (06:02→10:56)
[2024-01-17] MEDS: Acetaminophen 500 MG Tablet 1000 MG PO (06:03)
[2024-01-17 06:20] LABS: Bedside Glucose 94 mg/dL (74-106)
[2024-01-17] MEDS: Ascorbic Acid 500 MG Tablet PO (09:06)
[2024-01-17] MEDS: Multivitamin (Healthy Eyes) Capsule 1 CAP PO (09:06)
[2024-01-17] MEDS: Glimepiride 1 MG Tablet PO (09:06)
[2024-01-17] MEDS: Iron Polysaccharide Complex 150 MG CAPSULE PO (09:06)
[2024-01-17] MEDS: Cholecalciferol (Vit D3) 125 MCG CAPSULE (5,000 UNITS) PO (09:06)
[2024-01-17] MEDS: SACUBITRIL/VALSARTAN 24/26 MG TABLET 1 EACH PO (09:06)
[2024-01-17] MEDS: Pantoprazole Sodium 20 MG Tablet PO (09:06)
[2024-01-17] MEDS: amLODIPine 10 MG Tablet PO (09:06)
[2024-01-17] MEDS: Senna/Docusate Sodium 1 Tablet 2 TABLET PO (09:06)
[2024-01-17] MEDS: Menthol/Lanolin/Calamine/Znox 113 GM Tube 1 APPLIC TOPICAL (09:07)
[2024-01-17] MEDS: APIXABAN 5 MG TABLET PO (09:07)
== END 2024-01-17 11:15 | disposition intermediate care facility (04) | DRG 560 ==
PROVIDERS: Admitting Provider Family Medicine Geriatric Medicine; PCP Nurse Practitioner Family; Visit Provider Family Medicine Geriatric Medicine
DX: S32.401D Unspecified fracture of right acetabulum, subsequent encounter for fracture with routine healing (principal); I50.22 Chronic systolic (congestive) heart failure; N17.9 Acute kidney failure, unspecified; N39.0 Urinary tract infection, site not specified; B96.1 Klebsiella pneumoniae [K. pneumoniae] as the cause of diseases classified elsewhere; E11.9 Type 2 diabetes mellitus without complications; D50.9 Iron deficiency anemia, unspecified; E55.9 Vitamin D deficiency, unspecified; I11.0 Hypertensive heart disease with heart failure; I48.0 Paroxysmal atrial fibrillation; E78.5 Hyperlipidemia, unspecified; K21.9 Gastro-esophageal reflux disease without esophagitis; I25.10 Atherosclerotic heart disease of native coronary artery without angina pectoris; W01.0XXD Fall on same level from slipping, tripping and stumbling without subsequent striking against object, subsequent encounter; H35.30 Unspecified macular degeneration; Z79.01 Long term (current) use of anticoagulants; N40.0 Benign prostatic hyperplasia without lower urinary tract symptoms; Z87.891 Personal history of nicotine dependence; G47.00 Insomnia, unspecified; Z79.84 Long term (current) use of oral hypoglycemic drugs; S42.301D Unspecified fracture of shaft of humerus, right arm, subsequent encounter for fracture with routine healing; Z79.899 Other long term (current) drug therapy
CPT/HCPCS: 36415; 73060; 73503; 76770; 80048; 80061; 81001; 82274; 82306; 82962; 83036; 85025; 87077; 87086; 87088; 87186; 87811; 92523; 97110; 97116; 97129; 97130; 97162; 97166; 97530; 97535; 97802; 97803; J7030; A4216

== ENCOUNTER → 2024-01-21 | Outpatient (REF) | payer MEDICARE, SELFPAY ==
[2024-01-21 08:13] LABS: Absolute Lymphocyte Count 1.24 X10^3/uL (0.83-4.51); Absolute Neutrophil Count 6.5 X10^3/uL (2.0-7.7); Basophil# 0.03 X10^3/uL; Basophil% 0.3 % (0-1); Eosinophil# 0.29 X10^3/uL; Eosinophils% 3.3 % (0-5); Hemoglobin 9.9 g/dL (13.0-16.5); Lymphocyte # 1.24 X10^3/ul (0.83-4.51); Mean Corpuscular Hgb 26.9 pg (27.0-32.0); Mean Corpuscular Volume 89.7 fL (80-94); Mean Platelet Vol. 9.8 fl (6.2-12.0); Monocyte# 0.74 X10^3/uL; Monocyte% 8.4 % (0-10); NRBC Flagged by Analyzer 0 % (0-5); Neutrophil # 6.46 X10^3/uL (2.7-7.7); Neutrophil % 73.2 % (47-70); Platelet Count 307 K/mm3 (150-450); RBC Distribution Width CV 16.6 % (11.6-14.6); RBC Distribution Width SD 54.4 fl (35.1-43.9); Red Blood Count 3.68 M/mm3 (4.6-6.2); White Blood Count 8.8 K/mm3 (4.4-11.0)
[2024-01-21 09:33] LABS: ALB/GLOB Ratio 0.7 RATIO (0.9-2.4); AST(SGOT) 18 U/L (15-37); Alanine Aminotransfer ALT/SGPT 17 U/L (16-61); Albumin, Serum 2.9 g/dL (3.2-5.0); Alkaline Phosphatase 177 U/L (45-117); Anion Gap 6 (5-15); BUN 28 mg/dL (7-18); BUN/Creat Ratio 28.3 RATIO (10-20); Calcium,Total 8.3 mg/dL (8.5-10.1); Chloride 109 mmol/L (98-107); Creatinine, Serum 0.99 mg/dL (0.70-1.30); EST Glomerular Filtration Rate 77 mL/min (>60); Est Glom Filt Rate - Afr Amer 94 mL/min (>60); Globulin 3.9 g/dL (2.2-4.2); Glucose 87 mg/dL (74-106); Potassium 4.2 mmol/L (3.5-5.1); Protein, Total 6.8 g/dL (6.4-8.2); Sodium Level 139 mmol/L (136-145)
== END ==
LOC: OLS.WHLEAS 05:00
PROVIDERS: PCP Nurse Practitioner Family; Visit Provider Internal Medicine
DX: D50.9 Iron deficiency anemia, unspecified (principal)
CPT/HCPCS: 36415; 80053; 85025

== ENCOUNTER → 2024-01-26 | Outpatient (REF) | payer MEDICARE, SELFPAY ==
[2024-01-26 07:52] LABS: Anion Gap 7 (5-15); BUN 35 mg/dL (7-18); BUN/Creat Ratio 27.3 RATIO (10-20); Calcium,Total 8.9 mg/dL (8.5-10.1); Chloride 107 mmol/L (98-107); Creatinine, Serum 1.28 mg/dL (0.70-1.30); EST Glomerular Filtration Rate 57 mL/min (>60); Est Glom Filt Rate - Afr Amer 70 mL/min (>60); Glucose 91 mg/dL (74-106); Potassium 4.3 mmol/L (3.5-5.1); Sodium Level 138 mmol/L (136-145)
[2024-01-26 07:54] LABS: Absolute Lymphocyte Count 1.29 X10^3/uL (0.83-4.51); Absolute Neutrophil Count 3.7 X10^3/uL (2.0-7.7); Basophil# 0.04 X10^3/uL; Basophil% 0.7 % (0-1); Eosinophil# 0.33 X10^3/uL; Eosinophils% 5.5 % (0-5); Hematocrit 33.6 % (40-54); Hemoglobin 10.4 g/dL (13.0-16.5); Lymphocyte # 1.29 X10^3/ul (0.83-4.51); Lymphocyte % 21.6 % (19-41); Mean Corpuscular Hgb 27.4 pg (27.0-32.0); Mean Corpuscular Volume 88.4 fL (80-94); Mean Platelet Vol. 10.4 fl (6.2-12.0); NRBC Flagged by Analyzer 0 % (0-5); Neutrophil # 3.68 X10^3/uL (2.7-7.7); Neutrophil % 61.5 % (47-70); Platelet Count 261 K/mm3 (150-450); RBC Distribution Width CV 16.5 % (11.6-14.6); RBC Distribution Width SD 53.4 fl (35.1-43.9)
== END ==
LOC: OLS.WHLEAS 04:00
PROVIDERS: PCP Nurse Practitioner Family; Referring Provider Internal Medicine; Visit Provider Internal Medicine
DX: D50.9 Iron deficiency anemia, unspecified (principal)
CPT/HCPCS: 36415; 80048; 85025

== ENCOUNTER → 2024-02-02 | Outpatient (REF) | payer MEDICARE, SELFPAY ==
[2024-02-02 08:39] LABS: Absolute Neutrophil Count 4.6 X10^3/uL (2.0-7.7); Basophil# 0.03 X10^3/uL; Basophil% 0.4 % (0-1); Eosinophil# 0.22 X10^3/uL; Eosinophils% 3.2 % (0-5); Hematocrit 35.1 % (40-54); Hemoglobin 10.5 g/dL (13.0-16.5); Lymphocyte % 20.2 % (19-41); Mean Corp Hgb Conc 29.9 g/dL (32-36); Mean Corpuscular Hgb 27.2 pg (27.0-32.0); Mean Corpuscular Volume 90.9 fL (80-94); Mean Platelet Vol. 10.6 fl (6.2-12.0); Monocyte# 0.65 X10^3/uL; Monocyte% 9.4 % (0-10); NRBC Flagged by Analyzer 0 % (0-5); Neutrophil # 4.61 X10^3/uL (2.7-7.7); Neutrophil % 66.4 % (47-70); Platelet Count 231 K/mm3 (150-450); RBC Distribution Width CV 16.3 % (11.6-14.6); RBC Distribution Width SD 54.1 fl (35.1-43.9); Red Blood Count 3.86 M/mm3 (4.6-6.2); White Blood Count 6.9 K/mm3 (4.4-11.0)
[2024-02-02 09:17] LABS: Anion Gap 5 (5-15); BUN 28 mg/dL (7-18); Calcium,Total 8.6 mg/dL (8.5-10.1); Chloride 107 mmol/L (98-107); EST Glomerular Filtration Rate 76 mL/min (>60); Est Glom Filt Rate - Afr Amer 92 mL/min (>60); Glucose 98 mg/dL (74-106); Potassium 4.4 mmol/L (3.5-5.1); Sodium Level 138 mmol/L (136-145)
== END ==
LOC: OLS.WHLEAS 05:00
PROVIDERS: PCP Nurse Practitioner Family; Visit Provider Internal Medicine
DX: D50.9 Iron deficiency anemia, unspecified (principal)
CPT/HCPCS: 36415; 80048; 85025

== ENCOUNTER → 2024-02-09 05:00 | Outpatient (REF) | payer MEDICARE, SELFPAY ==
[2024-02-09 08:57] LABS: Absolute Lymphocyte Count 1.67 X10^3/uL (0.83-4.51); Absolute Neutrophil Count 3.3 X10^3/uL (2.0-7.7); Basophil# 0.03 X10^3/uL; Basophil% 0.5 % (0-1); Eosinophil# 0.21 X10^3/uL; Eosinophils% 3.7 % (0-5); Hematocrit 33.7 % (40-54); Hemoglobin 10.2 g/dL (13.0-16.5); Lymphocyte # 1.67 X10^3/ul (0.83-4.51); Lymphocyte % 29.5 % (19-41); Mean Corp Hgb Conc 30.3 g/dL (32-36); Mean Corpuscular Hgb 27.3 pg (27.0-32.0); Mean Corpuscular Volume 90.3 fL (80-94); Mean Platelet Vol. 10.4 fl (6.2-12.0); Monocyte# 0.48 X10^3/uL; Monocyte% 8.5 % (0-10); NRBC Flagged by Analyzer 0 % (0-5); Neutrophil # 3.25 X10^3/uL (2.7-7.7); Neutrophil % 57.3 % (47-70); Platelet Count 201 K/mm3 (150-450); RBC Distribution Width CV 16.2 % (11.6-14.6); RBC Distribution Width SD 53.5 fl (35.1-43.9); Red Blood Count 3.73 M/mm3 (4.6-6.2); White Blood Count 5.7 K/mm3 (4.4-11.0)
[2024-02-09 09:09] LABS: Anion Gap 7 (5-15); BUN 26 mg/dL (7-18); BUN/Creat Ratio 23.9 RATIO (10-20); Calcium,Total 8.9 mg/dL (8.5-10.1); Chloride 107 mmol/L (98-107); Creatinine, Serum 1.09 mg/dL (0.70-1.30); EST Glomerular Filtration Rate 69 mL/min (>60); Est Glom Filt Rate - Afr Amer 84 mL/min (>60); Glucose 77 mg/dL (74-106); Potassium 4.1 mmol/L (3.5-5.1); Sodium Level 140 mmol/L (136-145)
== END ==
LOC: OLS.WHLEAS 05:00
PROVIDERS: PCP Nurse Practitioner Family; Visit Provider Internal Medicine
DX: D50.9 Iron deficiency anemia, unspecified (principal)
CPT/HCPCS: 36415; 80048; 85025

== ENCOUNTER → 2024-10-01 | Outpatient (CLI) | payer MEDICARE, SELFPAY ==
[2024-10-01 18:02] LABS: Hematocrit 38.7 % (40-54); Hemoglobin 12.3 g/dL (13.0-16.5); Immature Granulocytes Count 0.050 X10^3/uL (0.0-0.0); Mean Corp Hgb Conc 31.8 g/dL (32-36); Mean Corpuscular Volume 89.6 fL (80-94); Mean Platelet Vol. 11.0 fl (6.2-12.0); NRBC Flagged by Analyzer 0 % (0-5); Platelet Count 253 K/mm3 (150-450); RBC Distribution Width CV 13.5 % (11.6-14.6); RBC Distribution Width SD 44.6 fl (35.1-43.9); Red Blood Count 4.32 M/mm3 (4.6-6.2); White Blood Count 9.4 K/mm3 (4.4-11.0)
[2024-10-01 18:31] LABS: AST(SGOT) 17 U/L (<=37); Alanine Aminotransfer ALT/SGPT 15 U/L (<=46); Albumin, Serum 4.2 g/dL (3.4-4.8); Alkaline Phosphatase 153 U/L (40-129); Anion Gap 15 (5-15); BUN 25 mg/dL (4-19); BUN/Creat Ratio 20.6 RATIO (10-20); Calcium,Total 9.4 mg/dL (7.6-11.0); Carbon Dioxide 22.7 mmol/L (21.0-32.0); Chloride 101 mmol/L (98-108); Cholesterol 144 mg/dL (<=200); Globulin 3.7 g/dL (2.2-4.2); Glucose 195 mg/dL (70-99); Low Density Lipoprotein Calc. 40 mg/dL; PSA,Total - Annual Screen 0.46 ng/mL (0.02-4.00); Potassium 4.2 mmol/L (3.3-5.1); Triglycerides 339 mg/dL; Very Low Density Lipoprotein 68 mg/dL (5-40); cholesterol:hdl ratio screen 3.96
== END | disposition home or self-care (01) ==
LOC: BFHLAB 13:57
PROVIDERS: PCP Nurse Practitioner Family; Visit Provider Nurse Practitioner Family
DX: R73.01 Impaired fasting glucose (principal); I10 Essential (primary) hypertension; E78.5 Hyperlipidemia, unspecified; Z12.5 Encounter for screening for malignant neoplasm of prostate
CPT/HCPCS: 36415; 80053; 80061; 83036; 84153; 85025; G0103